=== PATIENT | male | born 1955 | race Caucasian/White ===

== ENCOUNTER 2019-08-10 07:08 | Outpatient (RCR) | payer BC, SELFPAY ==
[2019-07-21 09:00] VITALS: BMI 42.0
--- NOTE | 2019-08-10 12:45 | PCWOUND ---
WOCN NOTE Patient did not show up for appointment, called. Patient states he forgot and that his wound is healed and closed. He does not need to be seen.
== END 2019-10-02 08:23 | disposition home or self-care (01) ==
LOC: ANHWOC 07:08
PROVIDERS: PCP Family Medicine; Visit Provider Family Medicine
DX: I73.9 Peripheral vascular disease, unspecified (principal); I87.2 Venous insufficiency (chronic) (peripheral); E11.9 Type 2 diabetes mellitus without complications
CPT/HCPCS: 99212; G0463

== ENCOUNTER 2019-10-14 14:47 | Emergency (ER) | payer BC, SELFPAY ==
--- NOTE | ~2019-10-14 | XR_ITS ---
EXAMINATION: XR chest 1V portable DATE: 10/14/2019 15:55 INDICATION: Shortness of breath. TECHNIQUE: A single frontal view of the chest was obtained. COMPARISON: Chest 2 views 12/15/2015, chest CT 12/15/2015 FINDINGS: There is no pneumonia, pleural effusion, or pneumothorax. Cardiomegaly is noted. There is a prominent left paracardial fat pad. IMPRESSION: 1. Cardiomegaly. Reviewed, dictated and finalized at location A. IMPRESSION: 1. Cardiomegaly.
--- NOTE | ~2019-10-14 | CT_ITS ---
EXAMINATION: CT abdomen pelvis wo con DATE: 10/14/2019 16:33 INDICATION: Left flank pain. TECHNIQUE: Computed tomography (CT) of the abdomen and pelvis was performed without intravenous contr ast. Automated exposure control and iterative reconstruction technique were employed. The dose-length product was 1555.90 mGy-cm. COMPARISON: None. FINDINGS: The visualized portions of the lung bases demonstrate mild atelectasis. No pleural effusion . The heart size is normal. No pericardial effusion. There is a moderate-sized sliding hiatal hernia. There is diffuse hepatic steatosis. There are changes of cholecystectomy. Calcifications in the sple en are consistent with old granulomatous disease. The pancreas, adrenal glands, and right kidney are normal. There is a 1.8 cm cyst in left kidney. There is mild left hydronephrosis. There are 5 mm and 3 mm stones in proximal left ureter. There are no dilated loops of bowel. The appendix is normal. The re is a widemouthed ventral hernia containing nonobstructed small bowel. There are no pathologically enlarged lymph nodes. There is no free intraperitoneal fluid. There is mild lumbar spondylosis. There are bridging endplate osteophytes at multiple levels in the thoracic spine, consistent with diffuse idiopathic skeletal hyperostosis (DISH). IMPRESSION: 1. 5 mm and 3 mm stones in proximal left ureter with mild left hydronephrosis. 2. Moderate-sized sliding hiatal hernia. 3. Widemouthed ventral hernia containing nonobstructed small bowel. Reviewed, dictated and finalized at location A.
--- NOTE | ~2019-10-14 | XR_ITS ---
EXAMINATION: XR abdomen/kub 1V DATE: 10/14/2019 16:40 INDICATION: Left flank pain. TECHNIQUE: A supine view of the abdomen on 2 radiographs was obtained. COMPARISON: CT abdomen and pelvis 10/14/2019 FINDINGS: There are no dilated loops of bowel. There is no visible urolithiasis. Surgical clips in th e right upper quadrant are likely from cholecystectomy. There are surgical clips in anterior abdomina l wall. IMPRESSION: 1. No visible urolithiasis. Reviewed, dictated and finalized at location A. IMPRESSION: 1. No visible urolithiasis.
[2019-10-14 14:55] VITALS: BP 136/71; PULSE 54; RESP 22; TEMP 36.4; O2SAT 97
--- NOTE | 2019-10-14 15:10 | ECG_ITS ---
Measurements Intervals [place] Rate: 68 P: 165 [place]: 174 QRS: 165 QRSD: 102 T: 165 QT: 397 QTc: 423 Interpretive Statements SINUS RHYTHM ARM LEADS REVERSED VENTRICULAR PREMATURE COMPLEX BASELINE ARTIFACT- I, III, AVR, AVL, AVF, V1 BORDERLINE ECG Electronically Signed On 10-15-2019 8:01:08 CDT by Jaspal Mckenna D.O.
--- NOTE | 2019-10-14 15:11 | ED.GENADULT ---
HPI - General Adult General Chief complaint: Shortness of Breath/Dyspnea Stated complaint: SOB, Back Pain Time Seen by Provider: 10/14/19 14:56 Source: patient Mode of arrival: ambulatory Limitations: no limitations History of Present Illness HPI narrative: THis patient is a 64 year old male with history of DM, PE on eliquis, HTN who presents for evaluation of sudden onset of left flank pain. Patient states just prior to arrival he developed sudden onset of pain to left flank that radiates around to left upper abdomen. He has associated sob and nausea with his pain. He denies previous history of kidney stones or similar pain in the past. He also denies fever or cough He denies urinary symptoms. Related Data Home Medications Medication Instructions Recorded Confirmed atorvastatin 10 mg tablet 10 mg PO DAILY 03/15/19 07/21/19 furosemide 20 mg tablet 20 mg PO QAM 03/15/19 07/21/19 Allergies Allergy/AdvReac Type Severity Reaction Status Date / Time No Known Allergies Allergy Verified 10/14/19 15:00 Review of Systems Review of Systems: All systems reviewed & are unremarkable except as noted in HPI and below Constitutional: Constitutional: Denies chills and Denies fever(s) Cardiovascular: Cardiovascular: Denies chest pain, Denies rapid heart rate and Denies radiating jaw, neck or arm pain Respiratory: Respiratory: Denies cough and Reports dyspnea Gastrointestinal: Gastrointestinal: Reports abdominal pain, Reports nausea and Denies vomiting Genitourinary: Genitourinary: Denies hematuria, Denies oliguria, Denies dysuria and Denies urinary frequency Musculoskeletal: Musculoskeletal: Reports back pain PMFSH Past Medical History Medical History Essential (primary) hypertension Hematuria Hx of adenomatous colonic polyps MTHFR gene mutation Peripheral vascular disease Personal history of pulmonary embolism Pure hypercholesterolemia, unspecified Rhinosinusitis Stasis dermatitis Surgical History Surgical History Hx of cholecystectomy Hx of colonoscopy Status post endovenous radiofrequency ablation (RFA) of saphenous vein Family History Family History (Updated 05/01/19 @ 11:48 by Trish Amaro APRN) Mother Family history of malignant neoplasm multiple myeloma Father Family history of diabetes mellitus in first degree relative Family history of type 2 diabetes mellitus Skin cancer Social History Social History (Updated 05/01/19 @ 11:48 by Trish Amaro, YENI) Smoking status: Never smoker Alcohol intake: never Substance use: never Gender identity (if verbalized by the patient): Male Exam Const: General: alert Orientation/consciousness: patient oriented x3 Other: moderate distress due to pain. Morbidly obese HENMT: Head: normocephalic and atraumatic Face and sinus: face symmetric Eyes: Pupils: Equal, round and reactive pupils present EOM: EOMs intact bilaterally Chest: Chest palpation & inspection: normal inspection of the chest Resp: Effort & Inspection: normal respiratory effort and no use of accessory muscles Auscultation: clear to auscultation bilaterally Cardio: Rate: regular rate Rhythm: regular rhythm Heart sounds: no murmurs GI: GI Palp: Yes Soft to palpation, Yes Tenderness to palpation present (GI) (left upper, LLQ), No Guarding due to palpation present (GI), No Rigid due to palpation and Yes Hernia present (ventral) Auscultation: normal bowel sounds : General: Yes CVA tenderness on the left Skin: General skin exam: normal color Rashes: no rashes Neuro: General: patient oriented x3 and moves all extremities Course Reevaluation(s) Reevaluation #1: PAtient states his pain is minimal. I have discussed findings of kidney stones. He is agreeable to discharge with pain medication, antibiotics and flomax. He will follow up with urology as ou
[2019-10-14 15:31] LABS: Basophils Absolute Auto 0.1 K/mm3 (0.0-0.1); Basophils Percent Auto 0.5 % (0.2-1.2); Eosinophils Absolute Auto 0.1 K/mm3 (0-0.3); Eosinophils Percent Auto 0.5 % (0-4.4); Hemoglobin 16.1 g/dL (14.0-18.0); Immature Granulocyte Absolute 0.07 K/mm3 (0.00-0.031); Immature Granulocyte Percent A 0.5 % (0-0.5); Lymphocytes Absolute Auto 1.35 K/mm3 (0.9-3.2); Lymphocytes Percent Auto 10.4 % (18.3-44.2); Mean Corpuscular HGB Conc 33.5 g/dl (32-36); Mean Corpuscular Hemoglobin 30.1 pg (26-34); Mean Corpuscular Volume 89.9 fl (80-100); Mean Platelet Volume 10.1 fl (7.4-10.4); Monocytes Absolute Auto 0.9 K/mm3 (0.1-0.6); Monocytes Percent Auto 6.9 % (2.6-8.5); Neutrophils Absolute Auto 10.5 K/mm3 (1.3-6.7); Neutrophils Percent Auto 81.2 % (45.5-73.1); Platelet Count Result 271 k/mm3 (150-375); Red Blood Count 5.34 M/mm3 (4.6-6.20); Red Cell Distribution Width 13.9 % (11.5-14.5); White Blood Count 12.9 K/mm3 (4.5-10.0)
[2019-10-14 15:34] LABS: Base Excess ABG -0.2 mEq/l (+/-2.0); Carboxyhemoglobin 0.9 % THb (0-2.0); Fractional Inspired Oxygen 21 %; HCO3 ABG 20.9 mEq/l (22.0-26.0); Methemoglobin ABG 0.4 %THb (0-1.5); Oxygen Content ABG 21.3 %vol (16.0-22.0); Oxygen Saturation ABG 95.8 % (95.0-100.0); Oxyhemoglobin 94.6 % THb (90.0-100.0); PCO2 ABG 26.4 mmHg (35.0-45.0); PO2 ABG 70.1 mmHg (80.0-100.0); PO2 FiO2 Ratio Arterial Blood 3.34 %; Reduced Hemoglobin 4.1 %THb (0-5.0)
[2019-10-14 15:36] LABS: Device ROOM AIR; Modified Allen's Test Pass; Site Drawn LEFT RADIAL; pH ABG 7.517 (7.350-7.450)
[2019-10-14 15:41] LABS: Prothrombin Time 13.2 Seconds (11.1-14.7)
[2019-10-14 15:45] LABS: Alanine Aminotransferase 34 U/L (4-50); Albumin Level 4.6 g/dL (3.5-5.1); Alkaline Phosphatase 100 U/L (38-126); Aspartate Amino Transferase 37 U/L (17-59); Bilirubin,Total 0.5 mg/dL (0.2-1.3); Blood Urea Nitrogen 17 mg/dL (9-20); Calcium 9.9 mg/dL (8.4-10.2); Carbon Dioxide 23 mmol/L (22-30); Chloride 104 mmol/L (98-107); Estimated CRCL calculation 113 ml/min; Estimated Glomerular Filt Rate > 60; Glucose 193 mg/dL (75-110); Lipase 98 U/L (23-300); Potassium 4.3 mmol/L (3.4-5.0); Sodium 137 mmol/L (137-145)
[2019-10-14] MEDS: HYDROMORPHONE HCL 1 MG/ML INJ IV PUSH (15:46)
[2019-10-14] MEDS: TAMSULOSIN HCL 0.4 MG CAPSULE PO (17:17)
[2019-10-14 17:20] VITALS: BP 140/70; PULSE 78; RESP 20; O2SAT 99
[2019-10-14 17:41] LABS: Add Urine Microscopic? YES; Appearance Urine Clear (Clear); Bacteria Urine Trace /hpf; Bilirubin Urine Negative (Negative); Blood Urine 1+ (Negative); Color Urine Yellow (Yellow); Glucose Urine UA 3+ mg/dL (Negative); Ketones Urine Negative (Negative); Leukocyte Esterase Ur 1+ LEU/UL (Negative); Mucus Urine Rare /lpf; Nitrate Urine Negative (Negative); Protein Urine Negative (Negative); Specific Grav Ur 1.026 (1.001-1.035); Squamous Epithelial Cell Urine Rare /hpf (Few); Urobilinogen Urine Negative mg/dL (<2.0); WBC Urine 51-75 /hpf
[2019-10-14 18:23] VITALS: BP 125/56; PULSE 67; RESP 18; O2SAT 99
== END 2019-10-14 18:28 | disposition home or self-care (01) ==
PROVIDERS: Emergency Provider General Practice; PCP Family Medicine
DX: N13.2 Hydronephrosis with renal and ureteral calculous obstruction (principal); Z86.711 Personal history of pulmonary embolism; I10 Essential (primary) hypertension; Z79.01 Long term (current) use of anticoagulants; E11.51 Type 2 diabetes mellitus with diabetic peripheral angiopathy without gangrene; E78.00 Pure hypercholesterolemia, unspecified
CPT/HCPCS: 36415; 36600; 71045; 74018; 74176; 80053; 81001; 82375; 82805; 83050; 83690; 85025; 85610; 85730; 87077; 87086; 87088; 87186; 93005; 96374; 99284; A9270; J1170

== ENCOUNTER → 2020-08-23 16:54 | Outpatient (CLI) | payer BC, SELFPAY ==
--- NOTE | ~2020-08-23 | XR_ITS ---
XR lumbar spine 2-3V 08/23/2020 17:20 Indication: Low back pain Procedure: 3 views of the lumbar spine Comparison: No prior studies for comparison. Findings: Vertebral body heights are maintained. There is normal lumbar lordosis. There is moderate m ultilevel facet hypertrophy. There is disc narrowing at L3-4, L4-5 and L5-S1. No evidence for spondyl olisthesis. There are prominent ventral bridging osteophytes of the upper lumbar spine. There is hype rtrophy of the spinous processes. Impression: 1: Moderate lumbar spondylosis. Reviewed, dictated and finalized at location A. Impression: 1: Moderate lumbar spondylosis.
--- NOTE | ~2020-08-23 | XR_ITS ---
XR thoracic spine 2V 08/23/2020 17:20 Indication: Back pain Procedure: 4 views of the thoracic spine Comparison: No prior studies for comparison. Findings: Mild thoracic spondylosis. Mild levocurvature of the thoracic spine. No acute fracture or t raumatic malalignment. Vertebral body heights are maintained. Pedicles intact. There are cholecystect monster clips. Impression: 1: Mild thoracic spondylosis. Reviewed, dictated and finalized at location A. Impression: 1: Mild thoracic spondylosis.
== END ==
PROVIDERS: PCP Family Medicine; Visit Provider Physician Assistant
DX: M54.9 Dorsalgia, unspecified (principal); M47.814 Spondylosis without myelopathy or radiculopathy, thoracic region; M47.816 Spondylosis without myelopathy or radiculopathy, lumbar region
CPT/HCPCS: 72070; 72100

== ENCOUNTER 2020-10-21 07:31 | Outpatient (RCR) | payer BC, SELFPAY ==
[2020-10-14 08:30] VITALS: BMI 45.5
== END 2020-12-24 12:15 | disposition home or self-care (01) ==
LOC: ANHWOC 07:31
PROVIDERS: PCP Family Medicine; Visit Provider Family Medicine
DX: I83.019 Varicose veins of right lower extremity with ulcer of unspecified site (principal); L97.919 Non-pressure chronic ulcer of unspecified part of right lower leg with unspecified severity
CPT/HCPCS: 99212; 99213; G0463

== ENCOUNTER 2021-08-14 13:44 | Outpatient (CLI) | payer BC, SELFPAY ==
--- NOTE | ~2021-08-14 | CT_ITS ---
EXAMINATION: CT abdomen pelvis wo con DATE: 08/14/2021 14:23 INDICATION: Hypertension. Kidney stones. TECHNIQUE: Computed tomography (CT) of the abdomen and pelvis was performed without intravenous contr ast. Automated exposure control and iterative reconstruction technique were employed. Exam dose: 133 4.61 mGy-cm total exam DLP. COMPARISON: 10/14/2019 CT abdomen pelvis 10/14/2019 KUB FINDINGS: There is a 3 mm pleural-based left lower lobe nodule. The lung bases are clear of infiltrat e or consolidation. Normal heart size. No pericardial or pleural effusion. Moderately large hiatal hernia. Status post cholecystectomy. No hepatic, splenic, pancreatic, adrenal or renal space-occupying mass lesion is evident on this limi gurwinder noncontrast examination. No bile duct or pancreatic duct dilatation. No urinary tract calculus or hydroureteronephrosis. The urinary bladder is unremarkable. There is pro state enlargement. Normal caliber of the abdominal aorta. No intraperitoneal or retroperitoneal or pelvic mass lesion or adenopathy or ascites. No bowel obstruction or intraperitoneal free air. Prominent widemouth multilocular fat containing umbilical hernia. Diffuse idiopathic skeletal hyperostosis of the thoracic spine. There is mild degenerative change of the lumbar spine. IMPRESSION: Moderately large hiatal hernia Status post cholecystectomy Prominent widemouth multilocular fat-containing umbilical hernia Reviewed, dictated and finalized at Location A. Reviewed, dictated and finalized at location A.
== END 2021-08-14 13:45 | disposition home or self-care (01) ==
LOC: ANHIMG 13:48
PROVIDERS: PCP Family Medicine; Visit Provider Internal Medicine Nephrology
DX: N20.0 Calculus of kidney (principal); I10 Essential (primary) hypertension; E78.00 Pure hypercholesterolemia, unspecified; K44.9 Diaphragmatic hernia without obstruction or gangrene; Z90.49 Acquired absence of other specified parts of digestive tract; K42.9 Umbilical hernia without obstruction or gangrene
CPT/HCPCS: 74176

== ENCOUNTER 2023-05-15 08:02 | Outpatient (CLI) | payer OTHER, SELFPAY ==
[2023-05-15 08:36] LABS: Appearance Urine Turbid (Clear); Bacteria Urine 4+ /hpf; Bilirubin Urine Negative (Negative); Blood Urine 2+ (Negative); Color Urine Yellow (Yellow); Glucose Urine UA 3+ mg/dL (Negative); Ketones Urine Trace mg/dL (Negative); Leukocyte Esterase Ur 2+ LEU/UL (NEGATIVE); Need Manual Microscopic Reviewed; Nitrate Urine Negative (Negative); Protein Urine 1+ mg/dL (Negative); RBC Urine 51-100 /hpf (0-2); Specific Grav Ur 1.031 (1.001-1.035); Squamous Epithelial Cell Urine None seen /hpf (Few); Urobilinogen Urine 0.2 mg/dL (<2.0); WBC Urine >100 /hpf (0-3); pH Urine 7.5 (5.0-9.0)
[2023-05-15 08:43] LABS: Add Urine Microscopic? YES
== END 2023-05-15 08:03 | disposition home or self-care (01) ==
PROVIDERS: PCP Family Medicine; Visit Provider Internal Medicine Nephrology
DX: R82.81 Pyuria (principal)
CPT/HCPCS: 81001; 87086; 87147; 87181; 87186

== ENCOUNTER 2023-11-03 13:13 | Outpatient (CLI) | payer OTHER, SELFPAY | END 2023-11-03 13:14 | disposition home or self-care (01) | LOC: ANHAUDASC 13:14 | PROVIDERS: PCP Family Medicine; Visit Provider Physician Assistant Medical | DX: H90.72 Mixed conductive and sensorineural hearing loss, unilateral, left ear, with unrestricted hearing on the contralateral side (principal); H93.13 Tinnitus, bilateral | CPT/HCPCS: 92557; 92567 ==

== ENCOUNTER 2023-11-25 10:06 | Outpatient (CLI) | payer OTHER, SELFPAY ==
--- NOTE | 2023-11-25 11:02 | EST_ITS ---
Patient Info Name: Bernabe Marx Jr Age: 68 years : 1955 Gender: Male Ht: 71 in Wt: 325 lbs BSA: 2.79 m2 HR: 58 bpm BP: 140 / 66 mmHg Heart Rhythm: Sinus Rhythm Exam Date: 11/25/2023 11:23 AM Exam Location: Echo Lab Patient Status: Outpatient Admit Date: 11/25/2023 Staff Ordering Physician: Yesenia Kaufman PA-C Attending Provider: Yesenia Kaufman PA-C Exercise Technologist: Bambi Savage CT Exercise Physician: Jaspal Mckenna DO Exam Type: CA stress test treadmill Study Info Indications R06.09 - Other forms of dyspnea A treadmill exercise stress test was performed. Summary 1. 1. Negative Rafa exercise stress test for ischemic ST changes by ECG criteria. 2. 2. Reduced functional capacity, achieving 7 METs of workload. 3. 3. Baseline hypertension with hypertensive response to exercise. 4. 4. Appropriate HR response to exercise. 5. 5. Appropriate HR recovery at 1 minute post exercise. 6. 6. No imaging with stress testing. 7. 7. Patient informed of the above results. Protocol: Rafa Stress ECG Details Stage: REST Duration (min): 1 min : 15 sec Speed (mph): 0.0 Grade (%): 0 HR (bpm): 58 SBP (mmHg): 140 DBP (mmHg): 66 METS: --- Stage: REST Duration (min): 13 min : 32 sec Speed (mph): 0.0 Grade (%): 0 HR (bpm): 80 SBP (mmHg): 140 DBP (mmHg): 66 METS: --- Stage: STAGE 1 Duration (min): 1 min : 0 sec Speed (mph): 1.7 Grade (%): 10 HR (bpm): 95 SBP (mmHg): 140 DBP (mmHg): 66 METS: --- Stage: STAGE 1 Duration (min): 2 min : 0 sec Speed (mph): 1.7 Grade (%): 10 HR (bpm): 109 SBP (mmHg): 140 DBP (mmHg): 66 METS: --- Stage: STAGE 1 Duration (min): 3 min : 0 sec Speed (mph): 1.7 Grade (%): 10 HR (bpm): 121 SBP (mmHg): 182 DBP (mmHg): 67 METS: --- Stage: STAGE 2 Duration (min): 1 min : 0 sec Speed (mph): 2.5 Grade (%): 12 HR (bpm): 133 SBP (mmHg): 182 DBP (mmHg): 67 METS: --- Stage: STAGE 2 Duration (min): 1 min : 30 sec Speed (mph): 2.5 Grade (%): 12 HR (bpm): 137 SBP (mmHg): 182 DBP (mmHg): 67 METS: --- Stage: RECOVERY Duration (min): 0 min : 29 sec Speed (mph): 0.0 Grade (%): 0 HR (bpm): 136 SBP (mmHg): 213 DBP (mmHg): 63 METS: --- Stage: RECOVERY Duration (min): 1 min : 29 sec Speed (mph): 0.0 Grade (%): 0 HR (bpm): 99 SBP (mmHg): 213 DBP (mmHg): 63 METS: --- Stage: RECOVERY Duration (min): 1 min : 41 sec Speed (mph): 0.0 Grade (%): 0 HR (bpm): 94 SBP (mmHg): 213 DBP (mmHg): 63 METS: --- Rest HR: 80 bpm Peak HR: 138 bpm Rest Sys BP: 140 mmHg Peak Sys BP: 213 mmHg Max Pred HR: 154 bpm % Max Pred HR: 90 % Target HR: 131 bpm Max RPP: 29,394 bpm*mmHg Cooper Score: -1 BP Response: Patient exhibited a hypertensive response with stress Termination Reason: Reached target heart rate or workload Cardiac Symptoms: Shortness of breath Max ST Seg Deviation: 1.20 mm Total Time: 4 min : 30 sec Rest Lanier BP: 66 mmHg Peak [place]ier BP: 63 mmHg Babatunde
== END 2023-11-25 10:07 | disposition home or self-care (01) ==
PROVIDERS: PCP Family Medicine; Visit Provider Physician Assistant Medical
DX: R06.09 Other forms of dyspnea (principal)
CPT/HCPCS: 93017

== ENCOUNTER 2023-12-13 16:26 | Outpatient (CLI) | payer OTHER, SELFPAY ==
--- NOTE | ~2023-12-13 | XR_ITS ---
XR shoulder LT min 2V Ordering provider: Yesenia Kaufman History: . M25.512 - Pain in left shoulder . Comparison: None. FINDINGS: BONES: No acute fracture or dislocation. JOINT SPACES: The acromioclavicular joint is normal. Osteophyte is seen inferiorly from the acromion. The glenohumeral joint is normal. SOFT TISSUES: Normal. IMPRESSION: No acute osseous abnormality left shoulder. Reviewed, dictated and finalized at location A.
== END 2023-12-13 16:27 ==
PROVIDERS: PCP Physician Assistant Medical; Visit Provider Physician Assistant Medical
DX: M25.512 Pain in left shoulder (principal)
CPT/HCPCS: 73030

== ENCOUNTER 2024-01-19 08:00 | Outpatient (RCR) | payer SELFPAY | END 2024-03-23 23:59 | disposition home or self-care (01) | LOC: ANHAUDASC 08:00 | PROVIDERS: PCP Family Medicine; Visit Provider Family Medicine | DX: Z46.1 Encounter for fitting and adjustment of hearing aid (principal) | CPT/HCPCS: 99199; V5261 ==

== ENCOUNTER 2024-07-31 17:48 | Emergency (ER) | payer MEDICARE, OTHER, SELFPAY ==
[2024-07-31 18:00] VITALS: BP 159/67; PULSE 76; RESP 16; TEMP 36.4; O2SAT 97
--- NOTE | 2024-07-31 18:12 | ED.URI ---
HPI - URI/Sore Throat General Chief Complaint: Upper Respiratory Infection Stated Complaint: right eye red,discharge, sinus issue Time Seen by Provider: 07/31/24 18:12 Source: patient Mode of arrival: ambulatory Limitations: no limitations History of Present Illness HPI Narrative: 69-year-old male presents with complaint of nasal congestion, sinus pressure, nasal nasal drainage with mild cough for 2-3 days. Afebrile. Patient reports redness, drainage to right eye. Patient concerned for pinkeye. Taking wehq-htw-fhiudka sinus medications for nasal congestion. No chest pain or shortness of breath. All systems reviewed and negative except as noted above. Related Data Allergies Allergy/AdvReac Type Severity Reaction Status Date / Time No Known Allergies Allergy Verified 07/31/24 17:53 Review of Systems Review of Systems: CONSTITUTIONAL: Denies fever, chills, or sweats. EYES: Denies visual changes. Reports right eye redness, discharge. ENT: Reports rhinorrhea, congestion, sinus pressure, postnasal drainage. Denies sore throat, or otalgia. CARDIOVASCULAR: Denies chest pain, palpitations, or edema. RESPIRATORY: Denies cough or dyspnea. GASTROINTESTINAL: Denies abdominal pain, nausea, vomiting, or diarrhea. GENITOURINARY: Denies dysuria or hematuria. SKIN: Denies rash or itching. MUSCULOSKELETAL: Denies back pain, joint pain, or myalgia. NEUROLOGIC: Denies headache, numbness, or weakness. PSYCHIATRIC: Denies anxiety or depression. All other systems reviewed are negative, except as documented in HPI. [facility] Past Medical History Medical History Rhinosinusitis Peripheral vascular disease Hx of adenomatous colonic polyps Hematuria MTHFR gene mutation Stasis dermatitis Personal history of pulmonary embolism Pure hypercholesterolemia, unspecified Essential (primary) hypertension Surgical History Surgical History Status post endovenous radiofrequency ablation (RFA) of saphenous vein Hx of cholecystectomy Hx of colonoscopy Family History Family History Mother Family history of malignant neoplasm multiple myeloma Father Family history of diabetes mellitus in first degree relative Family history of type 2 diabetes mellitus Skin cancer Social History Social History Social History: Smoking status: Never smoker Second hand tobacco smoke exposure: No Alcohol intake: never Substance use: never Substance use type: does not use Lack of Transportation: No Lack of Food: Never True Current Housing: I Have Housing Concerned About Future Housing: No Difficulty Paying Gas/Electric Bills: No Difficulty Paying for Meds: No Currently Unemployed: No Education: Bachelor's Degree Living arrangements: with family Occupation/Education: occupation Gender identity (if verbalized by the patient): Male Sexual Orientation (if Verbalized by the Patient): Straight or Heterosexual Comments At time of signature, agree with nursing past medical, surgical, social and family history. There is no relevant family history pertinent to the presenting complaint. Exam Narrative: GENERAL: This is a well-nourished, well-developed patient, in no apparent distress. HEAD: normocephalic, atraumatic. EYES: PERRL. Sclera and conjunctiva erythematous and injected right eye with purulent drainage. Vision is grossly intact. EARS: External ears normal, auditory canals clear and without drainage, TMs normal without perforation. Hearing grossly intact. NOSE: External nose normal with clear nasal drainage, mild erythema to nares THROAT: Mucous membranes moist, posterior pharynx clear. NECK: Neck supple, non-tender without lymphadenopathy, masses or thyromegaly. CARDIOVASCULAR: Regular rate and rhythm without murmurs, gallops, or rubs. RESPIRATORY: Clear to auscultation. Breath sounds equal bilaterally. No wheezes, rales, or rhonchi. SKIN: warm, Dry, intact with no suspicious lesions or rash, good texture and turgor. NEURO: awake, alert, and oriented to person, place and time. There were no obvious focal neurologic abnormalities. EXTREMITIES: No joint tenderness, effusion, or edema noted. Course Course Level of Care: Express Care Visit Vital Signs Vital signs: Vital Signs Temperature 36.4 C 07/31/24 18:00 Pulse Rate 76 07/31/24 18:00 Respiratory Rate 16 07/31/24 18:00 Blood Pressure 159/67 H 07/31/24 18:00 Pulse Oximetry 97 07/31/24 18:00 Oxygen Delivery Room Air 07/31/24 18:00 Temperature 36.4 C 07/31/24 18:00 Pulse Rate 76 07/31/24 18:00 Respiratory Rate 16 07/31/24 18:00 Blood Pressure 159/67 H 07/31/24 18:00 Pulse Oximetry 97 07/31/24 18:00 Oxygen Delivery Room Air 07/31/24 18:00 Reviewed MDM - URI/Sore Throat MDM Narrative Medical decision making narrative: Please be advised this is a medical document. It is intended for [id number] communication. It is written in medical language and may contain unfamiliar abbreviations or verbiage. Medical documents are intended to carry relevant information, facts as evident, and the clinical opinion of the practitioner at the time of the encounter. This report may have been done utilizing a voice recognition system. Attempts have been made to correct errors. However, there may be uncorrected grammatical, spelling, and recognition errors present. The file time of this note does not necessarily represent the time of service. Differential Diagnosis Differential diagnosis: Likely upper respiratory infection, sinusitis and viral infection Discharge Plan Discharge Clinical Impression: Acute viral sinusitis, Acute bacterial conjunctivitis of right eye Patient Disposition: Home, Self-Care Condition: Stable Instructions: Antibiotic Form, Conjunctivitis (ED) Additional Instructions: your sinus symptoms are viral and may last 10-14 days. Start Flonase nasal spray today. Continue [id number] Sudafed as directed on packaging. Take an oyor-xym-yvnhvst antihistamine daily such as Claritin or Zyrtec. Start antibiotic eyedrop today. Wash hands before and after placing eyedrops. Follow-up with your doctor if symptoms are not improving. Patient Language: Senegalese Prescriptions: New fluticasone propionate [Flonase Allergy Relief] 50 mcg/actuation spray,suspension 1 spray intranasal BID Qty: 16 0RF Rx Instructions: administer into each nostril ofloxacin 0.3 % drops 1 drp RIGHT EYE QID Qty: 10 0RF No Action tramadol 50 mg tablet 50 mg PO Q6H PRN (Reason: pain) Qty: 20 0RF Mounjaro 2.5 mg/0.5 mL pen injector 2.5 mg subcut WEEKLY Qty: 2 0RF Rx Instructions: for 4 weeks (DME) Contour Next Test Strips Strip See Rx Instructions .ROUTE .MEDSUPPLY Qty: 100 5RF Rx Instructions: As directed to check blood sugar once daily furosemide [Lasix] 20 mg tablet 20 mg PO QAM Qty: 30 2RF glipizide 5 mg tablet extended release 24hr 5 mg PO DAILY Qty: 90 2RF atorvastatin 10 mg tablet See Rx Instructions .ROUTE .COMPLEX Qty: 90 2RF Dose Instruction: TAKE ONE TABLET BY MOUTH DAILY Rx Instructions: TAKE ONE TABLET BY MOUTH DAILY metformin 500 mg tablet extended release 24 hr 500 mg PO QID Qty: 360 2RF lisinopril 20 mg tablet 20 mg PO DAILY Qty: 90 1RF Eliquis 5 mg tablet 5 mg PO BID Qty: 180 1RF Jardiance 25 mg tablet See Rx Instructions .ROUTE .COMPLEX Qty: 90 2RF Dose Instruction: TAKE ONE TABLET BY MOUTH DAILY EVERY MORNING Rx Instructions: TAKE ONE TABLET BY MOUTH DAILY EVERY MORNING Januvia 100 mg tablet 100 mg PO DAILY Qty: 90 2RF Follow-up/Referrals: Augustine Willett MD [Primary Care Provider] - Time of Disposition: 18:18
== END 2024-07-31 18:22 | disposition home or self-care (01) ==
PROVIDERS: Emergency Provider Nurse Practitioner Family; PCP Family Medicine
DX: J01.90 Acute sinusitis, unspecified (principal); H10.31 Unspecified acute conjunctivitis, right eye; I73.9 Peripheral vascular disease, unspecified; E72.12 Methylenetetrahydrofolate reductase deficiency; I10 Essential (primary) hypertension; E78.00 Pure hypercholesterolemia, unspecified; Z86.711 Personal history of pulmonary embolism
CPT/HCPCS: 99213; G0463

== ENCOUNTER 2024-09-01 01:04 | Day surgery (SDC) | payer MEDICARE, OTHER, SELFPAY ==
[2024-08-24 09:37] VITALS: BMI 43.4
--- NOTE | 2024-08-24 09:46 | SUR.PREOP ---
Spoke with patient in regards to his Eliquis. He verbalized understanding that his last dose is to be taken on 08/24/24 and the endoscopist will inform him when to resume after the procedure.
--- OUTSIDE RECORDS SUMMARY | 2024-09-01 01:08 | XMS_ITS | Clinical Summary ---
Author Organization [facility] Address [address] [place] [id number] Phone Care Team Providers Care Sports Physiotherapist Name Role Phone Augustine Willett MD Primary Care Provider [phone] Allergies No known active allergies Medications ELIQUIS 5 MG tablet 11/16/2019 Active atorvastatin (LIPITOR) 10 MG tablet 12/14/2019 Active JARDIANCE 25 MG tablet 12/21/2019 Active CONTOUR NEXT TEST test strip 10/16/2019 Act alexandra lisinopril (PRINIVIL,ZESTRI L) 20 MG tablet 11/30/2019 Act alexandra JANUVIA 100 MG tablet 10/19/2019 Active metFORMIN (GLUCOPHAGE) 1000 MG tablet 01/22/2021 Acti ve furosemide (LASIX) 20 MG tablet Take 20 mg by mouth 1 (one) time each day Active penicillin v potassium (VEETID) 500 MG tablet 01/21/2022 Active hydroCHLOROthiaz rene (HYDRODIURIL) 25 MG tablet Take 1 tablet (25 mg total) by mouth 1 (one) time each day 30 tablet 11 02/27/2022 Active Active Problems Problem Noted Date Diagnosed Date Calculus of kidney 01/11/2020 Benign hypertension 07/10/2016 Pure hypercholesterolemia 07/10/2016 Stasis dermatitis 07/10/2016 Type II diabetes mellitus uncontrolled 7 Immunizations Immunization Administration Dates Next Due Influenza TIV (IM) 02/02/2022,03/03/2020 Moderna Sars-cov-2 Vaccination 06/12/2020 Pneumococcal Conjugate 01/01/2015 Family History Medical History Relation Comments Kidney stone Brother Kidney disease Neg Hx Relation Status Comments Brother Social History Tobacco Use Types Packs/Day Years Used Date Smoking Tobacco: Never Smokeless Tobacco: Never Alcohol Use Standard Drinks/Week Comments Not Currently 0 (1 standard drink = 0.6 oz pur e alcohol) Sex and Gender Information Value Date Recorded Sex Assigned at Not on file Legal Sex Male 8:40 AM MDT Gender Identity Not on file Sexual Orientation Not on file Last Filed Vital Signs Vital Sign Reading Time Taken Comments Blood Pressure 122/70 02/16/2022 8:49 AM CDT Pulse 72 02/16/2022 8:49 AM CDT Temperature 36.2 C (97.2 F) 02/16/2022 8:49 AM CDT Respiratory Rate - - Oxygen Saturation - - Inhaled Oxygen Concentration - - Weight 152 kg (336 lb) 02/16/2022 8:49 AM CDT Height 182.9 cm (6') 02/16/2022 8:49 AM CDT Body Mass Index 45.57 02/16/2022 8:49 AM CDT Plan of Treatment Health Maintenance Due Date Last Done Comments Pneumococcal PPSV23/PCV13 65 + Years / Low and Medium Risk (1 of 4 - PCV) 2007 COVID-19 Vaccine ( season) 01/02/202401/2021 Influenza Vaccine (Season Ended) 2025 02/03/20 22, 03/03/[address] [facility] Care Teams Sports Physiotherapist Relationship Specialty Start Date End Date Augustine Willett MD [address] [facility] [address] [facility] [address] [place] [address] PCP - General Internal Medicine 01/15/20
--- OUTSIDE RECORDS SUMMARY | 2024-09-01 01:08 | XMS_ITS | Continuity of Care Document ---
Author Organization [facility] Address [address] [facility] [address] [place] [address] Phone Care Team Providers Care Care Center Manager Name Role Phone Adkins OD, Tom Unavailable Unavailable Advance Directives Directive Yes / No Effective Date File Name No Information Encounters Encounter Description Practice Location Reason(s) For Visit Diagnoses Date Provider Providers Copied on Encounter [facility], [address], [place], [place], [id number], [place] tel:[phone] [facility] No Information Dec-0 9-200 0 Adkins OD Tom. [address], [place], [address], [place]. tel:[phone] Family History Family Member Type Diagnosis Age At Onset No Information Payers Payer name Insurance type Covered alliance party ID Authoriza tion(s) No Information Social [...]
--- OUTSIDE RECORDS SUMMARY | 2024-09-01 01:08 | XMS_ITS | Clinical Summary ---
Author Organization [facility] Address [address] [facility] [place] [address] Phone Care Team Providers Care Merchandising Execution Associate Name Role Phone Augustine Willett MD Primary Care Provider [phone] Allergies No known active allergies Medications lisinopril (PRINIVIL) 10 mg tablet Take 10 mg by mouth daily. Active apixaban (ELIQUIS) 5 mg tablet Take 5 mg by mouth 2 times daily. Active atorvastatin (LIPITOR) 10 mg tablet Take 10 mg by mouth late in the day. Active furosemide (LASIX) 20 mg tablet Take 20 mg by mouth daily. Active sitaGLIPtin-metF ORMIN (JANUMET XR) 50-1,000 mg Extended Release 24 hour tablet Take 1 Tablet by mouth 2 times daily. 60 Tablet 07/12/2016 Active Active Problems Problem Noted Date Diagnosed Date Uncontrolled type 2 diabetes mellitus with hyperglycemia, without long-term current use of insulin 07/10/2016 HTN (hypertension), benign 07/10/2016 Pure hypercholesterolemia 07/10/2016 Chronic venous stasis dermatitis 07/10/2016 Family History Medical History Relation Name Comments Diabetes Brother Hypertension Brother Diabetes Father Hypertension Father Relation Name Status Comments Brother Father Social History Tobacco Use Types Packs/Day Years Used Date Smoking Tobacco: Never Alcohol Use Standard Drinks/Week Comments No 0 (1 standard drink = 0.6 oz pur e alcohol) Sex and Gender Information Value Date Recorded Sex Assigned at Not on file Legal Sex Male 3:48 PM CDT Gender Identity Not on file Sexual Orientation Not on file Last Filed Vital Signs Vital Sign Reading Time Taken Comments Blood Pressure 142/76 07/10/2016 2:07 PM PRESS SET UP PERSON Pulse 84 07/10/2016 2:07 PM PRESS SET UP PERSON Temperature - - Respiratory Rate - - Oxygen Saturation - - Inhaled Oxygen Concentration - - Weight 148.3 kg (327 lb) 07/10/2016 2:07 PM PRESS SET UP PERSON Height 182.9 cm (6') 07/10/2016 2:07 PM PRESS SET UP PERSON Body Mass Index 44.35 07/10/2016 2:07 PM PRESS SET UP PERSON Plan of Treatment Health Maintenance Due Date Last Done Comments DIABETES ANNUAL FOOT EXAM 1975 DIABETES ANNUAL RETINAL EXAM 1975 DIABETES HBA1C Q 6 MONTHS 1975 DIABETES MICROALBUMIN ANNUAL SCREEN 1975 LDL CHOLESTEROL ANNUAL 1975 DTAP/TDAP/TD VACCINES (1 - Tdap) 1976 PNEUMOCOCCAL VACCINE 50+ YEARS (1 of 2 - PCV) 05/03/18 77 COLORECTAL SCREENING 2002 Colorectal Cancer Screening 2002 FIT-DNA Q 3 years 2002 FIT/FOBT Q 1 year 2002 Flex Sig/CT Colonography Q 5 years 2002 ZOSTER VACCINE (1 of 2) 2007 RSV VACCINE (60+ or ) (1 - Risk 60-74 years 1-dose series) 2017 INFLUENZA VACCINE (#1) 2023 Insurance [employer] BLUE ACCESS/TRUE BLUE PPO Care Teams Merchandising Execution Associate Relationship Specialty Start Date End Date Augustine Willett MD [address] [facility] [address] [place] [address] PCP - General Family Practice 07/10/16
--- OUTSIDE RECORDS SUMMARY | 2024-09-01 01:08 | XMS_ITS | Referral Summary ---
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
--- OUTSIDE RECORDS SUMMARY | 2024-09-01 01:08 | XMS_ITS | Clinical Summary ---
Author Organization [facility] Address [address] [address] Phone Care Team Providers Care Computer Network Specialist Name Role Phone Augustine Willett MD Primary Care Provider Encounters Date Type Department Care Team Description 06/09/2024 Telephone [facility] - [place] [address] [place] [address] Neena Sahni APRN, PADDY 06/09/2024 Telephone [facility] - [place] [address] [place] [address] Neena Sahni APRN, HELPER MAINTENANCE CLEANING from Last 3 Months Social History Tobacco Use Types Packs/Day Years Used Date Smoking Tobacco: Never Assessed Sex and Gender Information Value Date Recorded Sex Assigned at Not on file Legal Sex Male 10:08 PM CDT Gender Identity Not on file Sexual Orientation Not on file Plan of Treatment Health Maintenance Due Date Last Done Comments Hepatitis C Virus (HCV) Screening 1955 TdaP Immunization 1957 Cologuard 2007 Immunochemical Fecal Occult Blood 2007 Pneumococcal Immunization (5 0+ years) (1 of 1 - PCV) 2007 01/01/2015 Zoster Immunization (1 of 2) 2007 PSA Discussion 2012 Influenza Immunization (#1) 2024 10/0 07/2021, 03/03/2020 SARS-COV-2 Immunization ( season) 2024 06/12/2020 Colonoscopy 05/01/2024 05/01/2019 Colorectal Cancer Screening 05/01/2024 Respiratory Syncytial Virus (RSV) Immunization (Adult) (1 - 1-dose 75+ series) 2032 05/01/2019 Pneumococcal Immunization Combined Discontinued 01/01/2015 Hepatitis B Immunization Aged Out No longer eligible based on patient's age to complete this topic Meningococcal Immunization (ACWY) Aged Out No longer eligible based on patient's age to complete this topic Rotavirus Immunization Aged Out No lo nger eligible based on patient's age to complete this topic Procedures Procedure Name Priority Date/Time Associated Diagnosis Comments COLONOSCOPY Routine 05/01/2019 from Last 3 Months or Most Recently Relevant to Health Maintenance Results * COLONOSCOPY (05/01/2019) Tom Pete DO PROCEDURE/MINOR SURGICAL ORDERA BLES Edited Result - Final from Last 3 Months or Most Recently Relevant to Health Maintenance Insurance MEDICARE Care Teams Computer Network Specialist Relationship Specialty Start Date End Date Augustine Willett MD [address] [place] [address] PCP - General Family Medicine 05/10/19
--- OUTSIDE RECORDS SUMMARY | 2024-09-01 01:08 | XMS_ITS | Clinical Summary ---
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
[2024-09-01 11:22] VITALS: BP 141/74; PULSE 64; RESP 20; TEMP 36.7; O2SAT 97
[2024-09-01] MEDS: LACTATED RINGERS 1,000 ML 150 ML IV CONT (11:27)
[2024-09-01 11:32] LABS: Glucose Point of Care 138 mg/dl (65-105)
--- NOTE | 2024-09-01 11:36 | P.PNAN_ITS ---
Anes - Initial Pre Proc Eval Procedure: Operation Date: 09/01/24 12:30 Proposed Procedures p Colonoscopy - Juan Manuel Garcia MD Date/Time: 09/01/24 11:36 Surgeon: Juan Manuel Garcia MD Pre Op Diagnosis: Personal history of colon polyps, unspecified Patient Data Age: 69 Gender: M Height: 1.83 m Weight: 146.8 kg Last Vital Signs Temp 98.0 F 09/01/24 11:22 Pulse 64 09/01/24 11:22 Resp 20 09/01/24 11:22 BP 141/74 H 09/01/24 11:22 Pulse Ox 97 09/01/24 11:22 O2 Del Method Room Air 09/01/24 11:22 Allergies Allergy/AdvReac Type Severity Reaction Status Date / Time No Known Allergies Allergy Verified 08/24/24 09:33 Home Medications ?Medication ?Instructions ?Recorded ?Confirmed ?Type blood sugar diagnostic (Contour #100 ea 01/23/21 08/24/24 Rx Next Test Strips) glipizide 5 mg tablet, extended 5 mg PO DAILY #90 tabs 02/24/24 09/01/24 Rx release 24 hr atorvastatin 10 mg tablet See Rx Instructions .Route 03/15/24 09/01/24 Rx .COMPLEX #90 tabs metformin 500 mg tablet,extended 500 mg PO QID #360 tabs 03/15/24 09/01/24 Rx release 24 hr apixaban 5 mg tablet (Eliquis) 5 mg PO BID #180 tabs 03/29/24 09/01/24 Rx tirzepatide 2.5 mg/0.5 mL 2.5 mg (0.5 mL) subcut WEEKLY #2 mL 06/08/24 08/24/24 Rx subcutaneous pen injector (Mounjaro) empagliflozin 25 mg tablet See Rx Instructions .Route 07/26/24 09/01/24 Rx (Jardiance) .COMPLEX #90 ea fluticasone propionate 50 1 spray intranasal BID #16 grams 07/31/24 09/01/24 Rx mcg/actuation nasal spray,suspension (Flonase Allergy Relief) sitagliptin phosphate 100 mg 100 mg PO DAILY #90 tabs 07/31/24 09/01/24 Rx tablet (Januvia) amoxicillin 875 mg-potassium 1 tablet PO Q12H #8 tabs 08/17/24 09/01/24 Rx clavulanate 125 mg tablet furosemide 20 mg tablet (Lasix) 20 mg PO QAM #90 tabs 08/22/24 09/01/24 Rx lisinopril 20 mg tablet See Rx Instructions .Route 08/28/24 09/01/24 Rx .COMPLEX #90 tabs Laboratory Tests 09/01/24 11:29 POC Capillary Glucose 138 H mg/dl (65-105) Patient hx anesthesia problems: none Family hx anesthesia problems: none Results Review: All pre-operative results and documents have been reviewed as part of the pre- operative evaluation. [facility] Past Medical History Medical History Rhinosinusitis Peripheral vascular disease Hx of adenomatous colonic polyps Hematuria MTHFR gene mutation Stasis dermatitis Personal history of pulmonary embolism Pure hypercholesterolemia, unspecified Essential (primary) hypertension Surgical History Surgical History Status post endovenous radiofrequency ablation (RFA) of saphenous vein Hx of cholecystectomy Hx of colonoscopy Family History Family History Mother Family history of malignant neoplasm multiple myeloma Father Family history of diabetes mellitus in first degree relative Family history of type 2 diabetes mellitus Skin cancer Social History Social History Social History: Smoking status: Never smoker Second hand tobacco smoke exposure: No Alcohol intake: never Substance use: never Substance use type: does not use Lack of Transportation: No Lack of Food: Never True Current Housing: I Have Housing Concerned About Future Housing: No Difficulty Paying Gas/Electric Bills: No Difficulty Paying for Meds: No Currently Unemployed: No Education: Bachelor's Degree Living arrangements: with family Occupation/Education: occupation Gender identity (if verbalized by the patient): Male Sexual Orientation (if Verbalized by the Patient): Straight or Heterosexual Anes - Eval Final PreProcedure Day of Procedure 09/01/24 11:36 Patient weight: morbidly obese Lungs: normal air movement Airway: Mallampati scale class II Neurological: alert and oriented Last oral intake: >/= 8 hours ASA classification: III Emergent: no Anesthetic plan: proceed Anesthesia type and monitoring: general GIVS and standard monitoring Results Review: All pre-operative results and documents have been reviewed as part of the pre- operative evaluation. HTN, hyperlipidemia, DM w fair control. Informed Consent: The patient's anesthetic plan and its attendant risks and benefits were discussed with the patient/family/POA. Questions were solicited and answers provided to the satisfaction of the patient/family/POA.
--- NOTE | 2024-09-01 12:53 | PM.IMHP ---
H&P: HPI History of Present Illness Date/Time: 09/01/24 12:53 Chief Complaint: History of colon polyps Narrative: The patient has a history of colonic polyps, the last colonoscopy was 3 years ago. Review of Systems Review of Systems: All systems reviewed & are unremarkable except as noted in HPI and below PMFSH Past Medical History Medical History Rhinosinusitis Peripheral vascular disease Hx of adenomatous colonic polyps Hematuria MTHFR gene mutation Stasis dermatitis Personal history of pulmonary embolism Pure hypercholesterolemia, unspecified Essential (primary) hypertension Surgical History Surgical History Status post endovenous radiofrequency ablation (RFA) of saphenous vein Hx of cholecystectomy Hx of colonoscopy Family History Family History Mother Family history of malignant neoplasm multiple myeloma Father Family history of diabetes mellitus in first degree relative Family history of type 2 diabetes mellitus Skin cancer Social History Social History Social History: Smoking status: Never smoker Second hand tobacco smoke exposure: No Alcohol intake: never Substance use: never Substance use type: does not use Lack of Transportation: No Lack of Food: Never True Current Housing: I Have Housing Concerned About Future Housing: No Difficulty Paying Gas/Electric Bills: No Difficulty Paying for Meds: No Currently Unemployed: No Education: Bachelor's Degree Living arrangements: with family Occupation/Education: occupation Gender identity (if verbalized by the patient): Male Sexual Orientation (if Verbalized by the Patient): Straight or Heterosexual Meds Home Medications and Allergies Home Medications ?Medication ?Instructions ?Recorded ?Confirmed ?Type blood sugar diagnostic (Contour #100 ea 01/23/21 08/24/24 Rx Next Test Strips) glipizide 5 mg tablet, extended 5 mg PO DAILY #90 tabs 02/24/24 09/01/24 Rx release 24 hr atorvastatin 10 mg tablet See Rx Instructions .Route 03/15/24 09/01/24 Rx .COMPLEX #90 tabs metformin 500 mg tablet,extended 500 mg PO QID #360 tabs 03/15/24 09/01/24 Rx release 24 hr apixaban 5 mg tablet (Eliquis) 5 mg PO BID #180 tabs 03/29/24 09/01/24 Rx tirzepatide 2.5 mg/0.5 mL 2.5 mg (0.5 mL) subcut WEEKLY #2 mL 06/08/24 08/24/24 Rx subcutaneous pen injector (Mounjaro) empagliflozin 25 mg tablet See Rx Instructions .Route 07/26/24 09/01/24 Rx (Jardiance) .COMPLEX #90 ea fluticasone propionate 50 1 spray intranasal BID #16 grams 07/31/24 09/01/24 Rx mcg/actuation nasal spray,suspension (Flonase Allergy Relief) sitagliptin phosphate 100 mg 100 mg PO DAILY #90 tabs 07/31/24 09/01/24 Rx tablet (Januvia) amoxicillin 875 mg-potassium 1 tablet PO Q12H #8 tabs 08/17/24 09/01/24 Rx clavulanate 125 mg tablet furosemide 20 mg tablet (Lasix) 20 mg PO QAM #90 tabs 08/22/24 09/01/24 Rx lisinopril 20 mg tablet See Rx Instructions .Route 08/28/24 09/01/24 Rx .COMPLEX #90 tabs Allergies Allergy/AdvReac Type Severity Reaction Status Date / Time No Known Allergies Allergy Verified 08/24/24 09:33 Vital Signs Vital Signs - 24 hr 09/01/24 11:22 Temperature 98.0 F Pulse Rate 64 Respiratory Rate 20 Blood Pressure 141/74 H Pulse Oximetry 97 Oxygen Delivery Room Air Exam Const: General: cooperative and healthy appearing Resp: Effort & Inspection: normal respiratory effort and able to speak in complete sentences Auscultation: clear to auscultation bilaterally Cardio: Rate: regular rate Rhythm: regular rhythm GI: Inspection: normal to inspection GI Palp: No No hepatosplenomegaly present Auscultation: normal bowel sounds Rectal Exam: deferred Skin: General skin exam: normal color Psych: Appearance: grossly normal Mental Status: mental status grossly normal Assessment and Plan Assessment and plan (1) Hx of adenomatous colonic polyps: Code(s): Z86.010 - Personal history of colon polyps Status: Acute Assessment and Plan: The patient is deemed a good candidate for the procedure. Consent signed. Will proceed.
[2024-09-01 13:30] VITALS: BP 137/72; RESP 20; O2SAT 97
[2024-09-01 13:40] VITALS: BP 132/74; RESP 64; O2SAT 99
[2024-09-01 13:50] VITALS: BP 118/63; RESP 59; O2SAT 99
== END 2024-09-01 14:04 | disposition home or self-care (01) ==
PROVIDERS: PCP Family Medicine; Referring Provider Family Medicine; Visit Provider Internal Medicine Gastroenterology
PROC: 0DJD8ZZ Inspection of Lower Intestinal Tract, Via Natural or Artificial Opening Endoscopic (ICD-10-PCS; CPT 45378; principal; 2024-09-01 12:30)
DX: Z12.11 Encounter for screening for malignant neoplasm of colon (principal); D12.3 Benign neoplasm of transverse colon; K64.8 Other hemorrhoids; I10 Essential (primary) hypertension; E78.00 Pure hypercholesterolemia, unspecified; I73.9 Peripheral vascular disease, unspecified; I87.2 Venous insufficiency (chronic) (peripheral); E66.01 Morbid (severe) obesity due to excess calories; Z68.41 Body mass index [BMI] 40.0-44.9, adult; Z79.84 Long term (current) use of oral hypoglycemic drugs; Z79.01 Long term (current) use of anticoagulants; Z79.85 Long-term (current) use of injectable non-insulin antidiabetic drugs; Z98.890 Other specified postprocedural states; Z90.49 Acquired absence of other specified parts of digestive tract; Z86.711 Personal history of pulmonary embolism; Z86.79 Personal history of other diseases of the circulatory system; Z80.7 Family history of other malignant neoplasms of lymphoid, hematopoietic and related tissues; Z84.0 Family history of diseases of the skin and subcutaneous tissue
CPT/HCPCS: 45385; 82948; 88305; J2003; J2704; J7120

== ENCOUNTER 2024-10-26 07:16 | Outpatient (RCR) | payer MEDICARE, OTHER, SELFPAY ==
[2024-10-05 09:00] VITALS: BMI 43.4
== END 2024-12-25 10:42 | disposition home or self-care (01) ==
LOC: ANHWOC 07:16
PROVIDERS: PCP Family Medicine; Visit Provider Student in an Organized Health Care Education/Training Program
DX: S81.802A Unspecified open wound, left lower leg, initial encounter (principal); E11.65 Type 2 diabetes mellitus with hyperglycemia; I73.9 Peripheral vascular disease, unspecified
CPT/HCPCS: 99214; 99215; G0463

== ENCOUNTER 2024-11-07 21:09 | Emergency (ER) | payer MEDICARE, OTHER, SELFPAY ==
[2024-11-07] VITALS (13 sets, daily range): BP systolic 136–173; BP diastolic 55–101; PULSE 78–90; RESP 18–29; TEMP 36.6; O2SAT 95–99
--- NOTE | ~2024-11-07 | XR_ITS ---
CHEST RADIOGRAPH CLINICAL HISTORY: sob WITH RIGHT SIDED NECK AND SHOULDER PAIN . COMPARISON: 10/14/2019 TECHNIQUE: Single portable view of the chest. FINDINGS The cardiomediastinal silhouette is unremarkable. The lungs are clear. IMPRESSION: No focal infiltrate or effusion. Reviewed, dictated and finalized at location A.
--- OUTSIDE RECORDS SUMMARY | 2024-11-07 21:11 | XMS_ITS | Clinical Summary ---
Author Organization [facility] Address [address] [address] Phone Care Team Providers Care Fund Accountant Name Role Phone Augustine Willett MD Primary Care Provider Social History Tobacco Use Types Packs/Day Years Used Date Smoking Tobacco: Never Assessed Sex and Gender Information Value Date Recorded Sex Assigned at Not on file Legal Sex Male 10:08 PM CDT Gender Identity Not on file Sexual Orientation Not on file Plan of Treatment Health Maintenance Due Date Last Done Comments Hepatitis C Virus (HCV) Screening 1955 TdaP Immunization 1955 Cologuard 2002 Immunochemical Fecal Occult Blood 2002 Pneumococcal Immunization (5 0+ years) (1 of 1 - PCV) 2007 01/01/2015 Zoster Immunization (1 of 2) 2007 PSA Discussion 2012 SARS-COV-2 Immunization ( - season) 2024 06/12/2020 Colonoscopy 05/01/2024 05/01/2019 Colorectal Cancer Screening 05/01/2024 Influenza Immunization (#1) 2025 10/0 07/2021, 03/03/2020 Respiratory Syncytial Virus (RSV) Immunization (Adult) (1 - 1-dose 75+ series) 2032 Pneumococcal Immunization Combined Discontinued 01/01/2015 Hepatitis B Immunization Aged Out No longer eligible based on patient's age to complete this topic Human Papillomavirus (HPV) Immunization Aged Out No longer eligible based [...] Most Recently Relevant to Health Maintenance [facility] Care Teams Fund Accountant Relationship Specialty Start Date End Date Augustine Willett MD [address] [place] [address] PCP - General Family Medicine 05/10/19
--- OUTSIDE RECORDS SUMMARY | 2024-11-07 21:11 | XMS_ITS | Continuity of Care Document ---
Author Organization [facility] Address [address] [facility] [address] [place] [address] Phone Care Team Providers Care Banking Manager Name Role Phone Adkins OD, Tom Unavailable Unavailable Advance Directives Directive Yes / No Effective Date File Name No Information Encounters Encounter Description Practice Location Reason(s) For Visit Diagnoses Date Provider Providers Copied on Encounter [facility], [address], [place], [place], [id number], [place] tel:[phone] [facility] No Information Dec-0 9-200 0 Adkins OD Tom. [address] , [address], [place], [address], [place]. tel:[phone] Family History Family Member Type Diagnosis Age At Onset No Information Payers Payer name Insurance type Covered constitution party ID Authoriza tion(s) No Information Social [...]
--- OUTSIDE RECORDS SUMMARY | 2024-11-07 21:11 | XMS_ITS | Referral Summary ---
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
--- OUTSIDE RECORDS SUMMARY | 2024-11-07 21:11 | XMS_ITS | Clinical Summary ---
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
--- OUTSIDE RECORDS SUMMARY | 2024-11-07 21:11 | XMS_ITS | Clinical Summary ---
Author Organization [facility] Address [address] [place] [address] Phone Care Team Providers Care Boring Machine Set Up Operator Jig Name Role Phone Augustine Willett MD Primary Care Provider [phone] Allergies No known active allergies Medications ELIQUIS [...] / Low and Medium Risk (1 of 2 - PCV) 2007 COVID-19 Vaccine (2 - season) 01/02/202401/2021 Influenza Vaccine (#1) 2025 02/02/2022, 2019 Insurance [facility] Care Teams Boring Machine Set Up Operator Jig Relationship Specialty Start Date End Date Augustine Willett MD [address] [facility] [address] [facility] 120 [place] [address] PCP - General Internal Medicine 01/15/20
--- OUTSIDE RECORDS SUMMARY | 2024-11-07 21:11 | XMS_ITS | Clinical Summary ---
Author Organization [facility] Address [address] [facility] [place] [address] Phone Care Team Providers Care Signaling Project Engineer Name Role Phone Augustine Willett MD Primary Care Provider [phone] Allergies No known active allergies Medications lisinopril [...] Comments Blood Pressure 142/76 07/10/2016 2:07 PM PASSEMENTERIE WORKER Pulse 84 07/10/2016 2:07 PM PASSEMENTERIE WORKER Temperature - - Respiratory Rate - - Oxygen Saturation - - Inhaled Oxygen Concentration - - Weight 148.3 kg (327 lb) 07/10/2016 2:07 PM PASSEMENTERIE WORKER Height 182.9 cm (6') 07/10/2016 2:07 PM PASSEMENTERIE WORKER Body Mass Index 44.35 07/10/2016 2:07 PM PASSEMENTERIE WORKER Plan of Treatment Health Maintenance Due Date [...] years 1-dose series) 2017 INFLUENZA VACCINE (#1) 2024 Insurance BS BLUE ACCESS/TRUE BLUE PPO Care Teams Signaling Project Engineer Relationship Specialty Start Date End Date Augustine Willett MD [address] [facility] [address] [place] [address] PCP - General Family Practice 07/10/16
--- NOTE | 2024-11-07 21:19 | ECG_ITS ---
Test Date: 2024-11-07 21:21:57 Measurements Intervals [place] Rate: 79 P: -1 OR: 167 QRS: -1 QRSD: 99 T: 6 QT: 357 QTc: 410 Interpretive Statements SINUS RHYTHM LOW QRS VOLTAGE IN PRECORDIAL LEADS [QRS DEFLECTION < 1.0 mV IN CHEST LEADS] POOR R-WAVE PROGRESSION ABNORMAL ECG No previous ECG available for comparison Electronically Signed On 11-08-2024 07:48:15 CDT by Edy Estrada M.D.
--- OUTSIDE RECORDS SUMMARY | 2024-11-07 21:51 | XMS_ITS | Clinical Summary ---
Author Organization [facility] Address [address] [address] Phone Care Team Providers Care Raw Stock Machine Feeder Name Role Phone Augustine Willett MD Primary [...] Most Recently Relevant to Health Maintenance Insurance [facility] MEDICARE Care Teams Raw Stock Machine Feeder Relationship Specialty Start Date End Date Augustine Willett MD [address] [facility] [address] [place] [address] PCP - General Family Medicine 05/10/19
--- OUTSIDE RECORDS SUMMARY | 2024-11-07 21:51 | XMS_ITS | Continuity of Care Document ---
Author Organization [facility] Address [address] [facility] [address] [place] [address] Phone Care Team Providers Care Button Maker Name Role Phone Adkins OD, Tom Unavailable Unavailable Advance Directives Directive Yes / No Effective Date File Name No Information Encounters Encounter Description Practice Location Reason(s) For Visit Diagnoses Date Provider Providers Copied on Encounter [facility], [address], [place], [place], [id number], [place] tel:[phone] [facility] No Information Dec-0 9-200 0 Adkins OD Tom. [address], [place], [address], [place]. tel:[phone] Family History Family Member Type Diagnosis Age At Onset No Information Payers Payer name Insurance type Covered democrat ID Authoriza tion(s) No Information Social History [...]
--- OUTSIDE RECORDS SUMMARY | 2024-11-07 21:51 | XMS_ITS | Referral Summary ---
Author Organization [facility] [address] Address [address] [place] [address] Care Team Providers Care Staff Registered Nurse Name Role Phone Augustine Willett MD Primary Care Provider Allergies No known active allergies Social History Tobacco Use Types Packs/Day Years Used Date Smoking Tobacco: Never Assessed Personal Safety Answer Date Recorded Getting School Help Needed Not on file 07/16 Sex and Gender Information Value Date Recorded Sex Assigned at Not on file Legal Sex Male 1:17 AM REPAIR ARMATURE WINDER Gender Identity Not on file Sexual Orientation Not on file Plan of Treatment Not on file Insurance [facility] Care Teams Staff Registered Nurse Relationship Specialty Start Date End Date Augustine Willett MD [address] [facility] [address] [facility] 120 [place] [address] PCP - General 04/19/09
--- OUTSIDE RECORDS SUMMARY | 2024-11-07 21:51 | XMS_ITS | Clinical Summary ---
Author Organization [facility] Address [address] [place] [address] Phone Care Team Providers Care Immunology Specialist Name Role Phone Augustine Willett MD Primary Care Provider [phone] Allergies No known active allergies Medications ELIQUIS [...] Influenza Vaccine (#1) 2025 02/02/2022, 2019 Insurance [employer] Care Teams Immunology Specialist Relationship Specialty Start Date End Date Augustine Willett MD [address] [facility] [address] [facility] 120 [place] [address] PCP - General Internal Medicine 01/15/20
--- OUTSIDE RECORDS SUMMARY | 2024-11-07 21:51 | XMS_ITS | Clinical Summary ---
Author Organization [facility] Address [address] [facility] [place] [address] Phone Care Team Providers Care Relay Dispatcher Name Role Phone Augustine Willett MD Primary Care Provider [phone] Allergies No known active allergies Medications lisinopril [...] Comments Blood Pressure 142/76 07/10/2016 2:07 PM ENGRAVER PANTOGRAPH Pulse 84 07/10/2016 2:07 PM ENGRAVER PANTOGRAPH Temperature - - Respiratory Rate - - Oxygen Saturation - - Inhaled Oxygen Concentration - - Weight 148.3 kg (327 lb) 07/10/2016 2:07 PM ENGRAVER PANTOGRAPH Height 182.9 cm (6') 07/10/2016 2:07 PM ENGRAVER PANTOGRAPH Body Mass Index 44.35 07/10/2016 2:07 PM ENGRAVER PANTOGRAPH Plan of Treatment Health Maintenance Due Date [...] BS BLUE ACCESS/TRUE BLUE PPO Care Teams Relay Dispatcher Relationship Specialty Start Date End Date Augustine Willett MD [address] [facility] [address] [place] [address] PCP - General Family Practice 07/10/16
--- OUTSIDE RECORDS SUMMARY | 2024-11-07 21:51 | XMS_ITS | Clinical Summary ---
Author Organization [facility] [address] Address [address] [place] [address] Care Team Providers Care Gear Nicker Name Role Phone Augustine Willett MD Primary Care Provider Allergies No known active allergies Social History Tobacco Use Types Packs/Day Years Used Date Smoking Tobacco: Never Assessed Personal Safety Answer Date Recorded Getting School Help Needed Not on file 07/16 Sex and Gender Information Value Date Recorded Sex Assigned at Not on file Legal Sex Male 1:17 AM INSERTER Gender Identity Not on file Sexual Orientation Not on file Plan of Treatment Not on file Insurance [facility] Care Teams Gear Nicker Relationship Specialty Start Date End Date Augustine Willett MD [address] [facility] [address] [facility] [address] [place] [address] PCP - General 04/19/09
[2024-11-07 22:17] LABS: Hematocrit 46.1 % (42.0-52.0); Hemoglobin 15.1 g/dL (14.0-18.0); Immature Granulocyte Percent A 0.4 % (0-0.5); Lymphocytes Absolute Auto 0.73 K/mm3 (0.9-3.2); Mean Corpuscular HGB Conc 32.8 g/dl (32-36); Mean Corpuscular Hemoglobin 29.8 pg (26-34); Mean Corpuscular Volume 90.9 fl (80-100); Nucleated Red Blood Cells Absolute Auto 0.000 K/mm3 (0.0-0.012); Nucleated Red Blood Cells Perc 0.0 % (0.0-0.2); Platelet Count Result 166 k/mm3 (150-375); Red Blood Count 5.07 M/mm3 (4.6-6.20); White Blood Count 7.0 K/mm3 (4.5-10.0)
[2024-11-07 22:28] LABS: Alanine Aminotransferase 43 U/L (6-50); Albumin Level 4.0 g/dL (3.5-5.1); Alkaline Phosphatase 77 U/L (38-126); Anion Gap 11 mmol/L (4-12); Aspartate Amino Transferase 54 U/L (17-59); Bilirubin,Total 0.5 mg/dL (0.2-1.3); Blood Urea Nitrogen 17 mg/dL (9-20); Calcium 9.1 mg/dL (8.4-10.2); Carbon Dioxide 24 mmol/L (22-30); Chloride 103 mmol/L (98-107); Estimated CRCL calculation 99 ml/min; Estimated Glomerular Filt Rate > 60; Glucose 123 mg/dL (65-110); Lipase 39 U/L (23-300); Magnesium 1.9 mg/dL (1.6-2.3); Potassium 4.2 mmol/L (3.4-5.0); Sodium 138 mmol/L (137-145); Total Protein 7.3 g/dL (6.3-8.2)
[2024-11-07 22:40] LABS: Troponin I < 0.012 ng/mL (0.000-0.034)
--- NOTE | 2024-11-07 23:07 | ED_ITS ---
HPI - General Adult General Chief complaint: Shortness of Breath/Dyspnea Stated complaint: SHORTNESS OF BREATH X3D Time Seen by Provider: 11/07/24 21:44 History of Present Illness HPI narrative: Patient is a 69-year-old male who presents to the emergency department this evening with multiple complaints. Patient states that he is having neck pain and shoulder pain and feels as though he pulled a muscle. States that he has been feeling weak and tired. Symptoms started on Wednesday and have not a improved. Denies any history of COPD or CHF. Patient does have a history of PE and is currently on a blood thinner. Also states that he has a history of diabetes. Patient did take a muscle relaxer prior to arrival to the emergency department with minimal to no improvement of his muscle pain. Denies any recent injuries, falls or trauma. Patient does complain of increased urinary frequency and mild dysuria. No additional symptoms or concerns at this time. Related Data Allergies Allergy/AdvReac Type Severity Reaction Status Date / Time No Known Allergies Allergy Verified 11/07/24 21:43 Review of Systems 2 Review of Systems: All systems are reviewed and are negative unless stated otherwise in the HPI. [facility] Past Medical History Medical History Rhinosinusitis Peripheral vascular disease Hx of adenomatous colonic polyps Hematuria MTHFR gene mutation Stasis dermatitis Personal history of pulmonary embolism Pure hypercholesterolemia, unspecified Essential (primary) hypertension Surgical History Surgical History Status post endovenous radiofrequency ablation (RFA) of saphenous vein Hx of cholecystectomy Hx of colonoscopy Family History Family History Mother Family history of malignant neoplasm multiple myeloma Father Family history of diabetes mellitus in first degree relative Family history of type 2 diabetes mellitus Skin cancer Social History Social History Social History: Smoking status: Never smoker Second hand tobacco smoke exposure: No Alcohol intake: never Substance use: never Substance use type: does not use Lack of Transportation: No Lack of Food: Never True Current Housing: I Have Housing Concerned About Future Housing: No Difficulty Paying Gas/Electric Bills: No Difficulty Paying for Meds: No Currently Unemployed: No Education: Bachelor's Degree Living arrangements: with family Additional living arrangements comments: with sp Occupation/Education: occupation Gender identity (if verbalized by the patient): Male Sexual Orientation (if Verbalized by the Patient): Straight or Heterosexual Exam 2 Narrative: General: Alert, awake, afebrile, in no acute distress, obese. HEENT: PERRL, no rhinorrhea, no post nasal drip, oropharynx clear. Neck: Trachea midline, no JVD, no lymphadenopathy. Cardiovascular: Regular rate and rhythm, no murmurs, rubs or gallops, no peripheral edema. Respiratory: Clear to auscultation bilaterally, no tachypnea, no wheezing, no rhonchi, no rubs, no respiratory distress. Abdomen: Soft, nontender, nondistended, no rebound, no guarding, no peritoneal signs. Musculoskeletal: No joint swelling or deformity, normal muscle tone. Skin: No rashes or petechia, no signs of infection. Psychiatric: Alert and oriented, normal behavior and judgment for situation. Neurological: Alert and oriented to person, place, and time. Follows all commands. No focal deficits, speech is clear and fluent. Course Vital Signs Vital signs: Vital Signs Temperature 98 F 11/07/24 21:12 Pulse Rate 90 11/07/24 21:12 Respiratory Rate 21 H 11/07/24 21:12 Blood Pressure 173/55 H 11/07/24 21:12 Pulse Oximetry 97 11/07/24 21:12 Oxygen Delivery Room Air 11/07/24 21:12 Temperature 98 F 11/07/24 21:12 Pulse Rate 81 11/07/24 22:31 Respiratory Rate 26 H 11/07/24 22:31 Blood Pressure 158/101 H 11/07/24 23:18 Pulse Oximetry 96 11/07/24 23:18 Oxygen Delivery Room Air 11/07/24 21:41 Medical Decision Making MDM Narrative Medical decision making narrative: The patient was evaluated by myself in the emergency department. History is obtained from patient who is an independent historian and physical exam was performed. External medical records were reviewed at this time. IV was established and pertinent tests were ordered. Patient was administered 15 mg of IV Toradol and oral [place] for his musculoskeletal pain. EKG was obtained which revealed sinus rhythm rate of 79 beats per minute, no evidence of acute ischemia. EKG was independently interpreted by me and is currently pending official cardiology read. Laboratory results obtained revealing no acute process. Urinalysis did reveal urinary tract infection nitrate positive. At this time patient was administered 1 g of IV Rocephin and administered a 1 IV fluid bolus with normal saline. Imaging studies obtained included CXR which was independently interpreted by me revealing no acute cardiopulmonary process, which is pending final radiology interpretation. Differential diagnosis considerations include acute viral syndrome, infectious process such as pneumonia/UTI, dehydration, electrolyte derangements. Comorbidities impacting this visit include none. I have evaluated and discussed social determinants of health with the patient that could potentially impact subsequent diagnosis and treatment plans. On repeat assessment of the patient, reevaluation revealed that the patient is doing well and is in no acute distress. Patient symptoms have improved since he arrived to our emergency department. Repeat vital signs were all reviewed and noted to be stable. Differential diagnosis and treatment plan were discussed with the patient at bedside. Patient agrees with discussion and after shared medical decision making agrees with discharge. All questions were answered to the patient's satisfaction. Patient will follow up with his PCP in 3-5 days. Script for cephalexin was sent to patient's pharmacy to take as prescribed for his UTI. Patient was provided with strict return precautions and instructed to return to the emergency department if any new or worsening symptoms develop. The patient was discharged in stable condition. Vital Signs Vital Signs: Vital Signs Temperature 98 F 11/07/24 21:12 Pulse Rate 90 11/07/24 21:12 Respiratory Rate 21 H 11/07/24 21:12 Blood Pressure 173/55 H 11/07/24 21:12 Pulse Oximetry 97 11/07/24 21:12 Oxygen Delivery Room Air 11/07/24 21:12 Temperature 98 F 11/07/24 21:12 Pulse Rate 81 11/07/24 22:31 Respiratory Rate 26 H 11/07/24 22:31 Blood Pressure 158/101 H 11/07/24 23:18 Pulse Oximetry 96 11/07/24 23:18 Oxygen Delivery Room Air 11/07/24 21:41 Lab Data 11/07/24 22:04 11/07/24 22:04 Labs: Lab Results 11/07/24 11/07/24 Range/Units 22:04 23:32 WBC 7.0 (4.5-10.0) K/mm3 RBC 5.07 (4.6-6.20) M/mm3 Hgb 15.1 (14.0-18.0) g/dL Hct 46.1 (42.0-52.0) % MCV 90.9 (80-100) fl MCH 29.8 (26-34) pg MCHC 32.8 (32-36) g/dl RDW 14.5 (11.5-14.5) % Plt Count 166 (150-375) k/mm3 MPV 9.9 (7.4-10.4) fl Immature Gran % (Auto) 0.4 (0-0.5) % Neut % (Auto) 78.2 H (45.5-73.1) % Lymph % (Auto) 10.4 L (18.3-44.2) % [place] % (Auto) 10.6 H (2.6-8.5) % Eos % (Auto) 0.0 (0-4.4) % Baso % (Auto) 0.4 (0.2-1.2) % Lymph # (Auto) 0.73 L (0.9-3.2) K/mm3 [place] # (Auto) 0.7 H (0.1-0.6) K/mm3 Eos # (Auto) 0.0 (0-0.3) K/mm3 Baso # (Auto) 0.0 (0.0-0.1) K/mm3 Abs Immat Gran (auto) 0.03 (0.00-0.031) K/mm3 Absolute Neuts (auto) 5.5 (1.3-6.7) K/mm3 Absolute Nucleated RBC 0.000 (0.0-0.012) K/mm3 Nucleated RBC % 0.0 (0.0-0.2) % Sodium 138 (137-145) mmol/L Potassium 4.2 (3.4-5.0) mmol/L Chloride 103 (98-107) mmol/L Carbon Dioxide 24 (22-30) mmol/L Anion Gap 11 (4-12) mmol/L BUN 17 (9-20) mg/dL Creatinine 0.94 (0.7-1.3) mg/dL Estim Creat Clear Calc 99 ml/min Estimated GFR > 60 (59 - ) Glucose 123 H (65-110) mg/dL Calcium 9.1 (8.4-10.2) mg/dL Magnesium 1.9 (1.6-2.3) mg/dL Total Bilirubin 0.5 (0.2-1.3) mg/dL AST 54 (17-59) U/L ALT 43 (6-50) U/L Alkaline Phosphatase 77 (38-126) U/L Troponin I < 0.012 (0.000-0.034) ng/mL Total Protein 7.3 (6.3-8.2) g/dL Albumin 4.0 (3.5-5.1) g/dL Lipase 39 (23-300) U/L Urine Color Yellow (Yellow) Urine Appearance Cloudy H (Clear) Urine pH 6.5 (5.0-9.0) Ur Specific [place] 1.044 H (1.001-1.035) Urine Protein 2+ H (Negative) mg/dL Urine Glucose (UA) 3+ H (Negative) mg/dL Urine Ketones 3+ H (Negative) mg/dL Ur Blood (Man) 1+ H (Negative) Urine Nitrate Positive H (Negative) Urine Bilirubin Negative (Negative) Urine Urobilinogen 1.0 (<2.0) mg/dL Leukocyte Esterase Rfl 2+ H (Negative) DANIELA/UL Urine RBC 6-10 H (0-2) /hpf Urine WBC >100 H (0-3) /hpf Ur Squamous Epith Cells Occasional (Few) /hpf Urine Bacteria 4+ H /hpf Urine Casts 0-2 Discharge Plan Discharge Clinical Impression: Generalized weakness, Acute UTI (urinary tract infection), Dehydration Patient Disposition: Home Condition: Improved Instructions: Antibiotic Form, Urinary Tract Infection in Men (DC), Weakness (ED) Additional Instructions: Please follow-up with your family doctor within the next 3-5 days. Return to emergency department if any new or worsening symptoms develop. Maintain your oral hydration by drinking lots of fluids to prevent dehydration. Take the prescribed antibiotic as instructed for urinary tract infection. Patient Language: Macedonian Prescriptions: New cephalexin 500 mg capsule 500 mg PO Q6H 7 Days Qty: 28 0RF No Action Mounjaro 2.5 mg/0.5 mL pen injector 2.5 mg subcut WEEKLY Qty: 2 0RF Patient Comments: Will start after colonoscopy Rx Instructions: for 4 weeks (DME) Contour Next Test Strips Strip See Rx Instructions .ROUTE .MEDSUPPLY Qty: 100 5RF Rx Instructions: As directed to check blood sugar once daily glipizide 5 mg tablet extended release 24hr 5 mg PO DAILY Qty: 90 2RF atorvastatin 10 mg tablet See Rx Instructions .ROUTE .COMPLEX Qty: 90 2RF Dose Instruction: TAKE ONE TABLET BY MOUTH DAILY Rx Instructions: TAKE ONE TABLET BY MOUTH DAILY metformin 500 mg tablet extended release 24 hr 500 mg PO QID Qty: 360 2RF Jardiance 25 mg tablet See Rx Instructions .ROUTE .COMPLEX Qty: 90 2RF Dose Instruction: TAKE ONE TABLET BY MOUTH DAILY EVERY MORNING Rx Instructions: TAKE ONE TABLET BY MOUTH DAILY EVERY MORNING Januvia 100 mg tablet 100 mg PO DAILY Qty: 90 2RF furosemide [Lasix] 20 mg tablet 20 mg PO QAM Qty: 90 1RF lisinopril 20 mg tablet See Rx Instructions .ROUTE .COMPLEX Qty: 90 0RF Dose Instruction: TAKE 1 TABLET BY MOUTH DAILY Rx Instructions: TAKE 1 TABLET BY MOUTH DAILY Eliquis 5 mg tablet 5 mg PO BID Qty: 180 1RF Follow-up/Referrals: Augustine Willett MD [Primary Care Provider] - 3 Days Time of Disposition: 00:03
[2024-11-07] MEDS: HYDROcodone/acetaminophen (*CRX) 5-325 MG TABLET 1 TAB PO (23:17)
[2024-11-07] MEDS: KETOROLAC 15 MG/ML VIAL (*BKC) IV PUSH (23:17)
[2024-11-07 23:45] LABS: Add Urine Microscopic? YES; Appearance Urine Cloudy (Clear); Glucose Urine UA 3+ mg/dL (Negative); Leukocyte Esterase Ur 2+ LEU/UL (Negative); Nitrate Urine Positive (Negative); Non Pathogenic Casts 0-2; Specific Grav Ur 1.044 (1.001-1.035)
[2024-11-08] MEDS: SODIUM CHLORIDE 0.9% IV 1,000 ML 999 ML IV CONT (00:12)
[2024-11-08] MEDS: cefTRIAXone 1 GM in SODIUM CHLORIDE 0.9% IV 50 ML 100 ML IVPB (00:12)
[2024-11-08 01:11] VITALS: BP 146/77; PULSE 79; RESP 19; TEMP 37; O2SAT 94
== END 2024-11-08 01:25 | disposition home or self-care (01) ==
PROVIDERS: Emergency Provider Emergency Medicine; PCP Family Medicine
DX: R53.1 Weakness (principal); N39.0 Urinary tract infection, site not specified; E86.0 Dehydration; I10 Essential (primary) hypertension; Z86.711 Personal history of pulmonary embolism; Z79.01 Long term (current) use of anticoagulants; E78.5 Hyperlipidemia, unspecified
CPT/HCPCS: 36415; 71045; 80053; 81001; 83690; 83735; 84484; 85025; 87086; 93005; 96365; 96375; 99284; A9270; J0696; J1885; J7030

== ENCOUNTER 2024-11-09 13:33 | Emergency (ER) | payer MEDICARE, OTHER, SELFPAY ==
--- NOTE | ~2024-11-09 | US_ITS ---
LEFT LOWER EXTREMITY VENOUS ULTRASOUND Ordering provider: Samia Draper PA-C History: . r/o dvt . Comparison: None. FINDINGS: --COMMON FEMORAL: Patent and free of thrombus. Normal compressibility, phasic flow and augmentation. --PROXIMAL SUPERFICIAL FEMORAL: Patent and free of thrombus. Normal compressibility, phasic flow and augmentation. --DISTAL SUPERFICIAL FEMORAL: Patent and free of thrombus. Normal compressibility, phasic flow and au gmentation. --POPLITEAL: Patent and free of thrombus. Normal compressibility, phasic flow and augmentation. --POSTERIOR TIBIAL: Patent and free of thrombus. Normal compressibility, phasic flow and augmentation . IMPRESSION: Negative left lower extremity venous US. No deep vein thrombosis. Reviewed, dictated and finalized at location A.
--- NOTE | ~2024-11-09 | XR_ITS ---
XR knee LT 3V Ordering provider: Samia Draper History: . knee pain . Comparison: August 03, 2014 FINDINGS: BONES: No acute fracture or dislocation. JOINT SPACES: narrowing of the medial compartment. Marginal osteophytes in the patella. SOFT TISSUES: Normal. IMPRESSION: No acute osseous abnormality left knee. Moderate osteoarthritic changes. Reviewed, dictated and finalized at location A.
[2024-11-09 13:34] VITALS: BP 126/56; PULSE 70; RESP 16; TEMP 36.4; O2SAT 97
--- OUTSIDE RECORDS SUMMARY | 2024-11-09 13:36 | XMS_ITS | Clinical Summary ---
Author Organization [facility] Address [address] [address] Phone Care Team Providers Care Optical Model Maker And Tester Name Role Phone Augustine Willett MD Primary [...] Most Recently Relevant to Health Maintenance Insurance [facility] MEDICARE Care Teams Optical Model Maker And Tester Relationship Specialty Start Date End Date Augustine Willett MD [address] [facility] [address] [place] [address] PCP - General Family Medicine 05/10/19
--- OUTSIDE RECORDS SUMMARY | 2024-11-09 13:36 | XMS_ITS | Clinical Summary ---
Author Organization [facility] Address [address] [place] [id number] Phone Care Team Providers Care Patch Setter Name Role Phone Augustine Willett MD Primary Care Provider [phone] Allergies No known active allergies Medications ELIQUIS [...] Influenza Vaccine (#1) 2025 02/02/2022, 2019 Insurance [facility] Care Teams Patch Setter Relationship Specialty Start Date End Date Augustine Willett MD [address] [facility] [address] [facility] [address] [place] [address] PCP - General Internal Medicine 01/15/20
--- OUTSIDE RECORDS SUMMARY | 2024-11-09 13:36 | XMS_ITS | Clinical Summary ---
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
--- OUTSIDE RECORDS SUMMARY | 2024-11-09 13:36 | XMS_ITS | Referral Summary ---
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
--- OUTSIDE RECORDS SUMMARY | 2024-11-09 13:36 | XMS_ITS | Continuity of Care Document ---
Author Organization [facility] Address [address] [facility] [address] [place] [address] Phone Care Team Providers Care Educational Therapist Name Role Phone Adkisn OD, Tom Unavailable Unavailable Advance Directives Directive Yes / No Effective Date File Name No Information Encounters Encounter Description Practice Location Reason(s) For Visit Diagnoses Date Provider Providers Copied on Encounter [facility], [address], [place], [place], [id number], [place] tel:[phone] [facility] No Information Dec-0 9-200 0 Adkins OD Tom. [address] , [address], [place], [address], [place]. tel:[phone] Family History Family Member Type Diagnosis Age [...]
--- OUTSIDE RECORDS SUMMARY | 2024-11-09 13:36 | XMS_ITS | Clinical Summary ---
Author Organization [facility] Address [address] [facility] [place] [address] Phone Care Team Providers Care Online Communications Manager Name Role Phone Augustine Willett MD Primary Care Provider [phone] Allergies No known active allergies Medications lisinopril [...] Comments Blood Pressure 142/76 07/10/2016 2:07 PM WORK DISTRIBUTOR Pulse 84 07/10/2016 2:07 PM WORK DISTRIBUTOR Temperature - - Respiratory Rate - - Oxygen Saturation - - Inhaled Oxygen Concentration - - Weight 148.3 kg (327 lb) 07/10/2016 2:07 PM WORK DISTRIBUTOR Height 182.9 cm (6') 07/10/2016 2:07 PM WORK DISTRIBUTOR Body Mass Index 44.35 07/10/2016 2:07 PM WORK DISTRIBUTOR Plan of Treatment Health Maintenance Due Date [...] BS BLUE ACCESS/TRUE BLUE PPO Care Teams Online Communications Manager Relationship Specialty Start Date End Date Augustine Willett MD [address] [facility] [address] [place] [address] PCP - General Family Practice 07/10/16
--- NOTE | 2024-11-09 15:21 | ED.EXTPRO ---
HPI - Extremity Problem General Chief complaint: Extremity Problem,Nontraumatic Stated complaint: r/o DVT in the L leg Time Seen by Provider: 11/09/24 16:10 Focused HPI: 69-year-old male history of PVD, hypertension, DVT and PE on Eliquis presents emergency department for DVT rule out. Patient is currently prescribed Eliquis which he states he normally is compliant with did miss a few doses earlier this week due to not feeling well. He states yesterday he began having pain and swelling to the left knee and his family was concerned he was having swelling to the remainder of his extremity. He contacted his PCP recently come to the ER to rule out a DVT. He is not having any chest pain or shortness of breath. He has chronic lower extremity wounds which are being managed by wound care. Patient states the wounds are unchanged. He denies surrounding warmth erythema, fevers. Denies recent injury or trauma to his leg or knee. Patient states the pain in his knee is worse with ambulation. GENERAL: Well-appearing, well-nourished, and in no acute distress. HEAD: Normocephalic, atraumatic. CHEST: Clear to auscultation. ?No respiratory distress. EXT: LLE: Chronic hyperpigmentation to the left lower extremity with multiple chronic wounds to the left anterior lateral tib-fib, no active bleeding or purulence, no induration or fluctuation, no erythema. No crepitus. Tenderness to the tibial tuberosity with mild overlying edema. Patient has full range of motion of knee. No warmth erythema to the knee. DP pulses 2+. Sensation intact. HEART: Regular rate and rhythm.? NEURO: ?Alert and oriented x3. Patient screened in triage and initial orders placed.? ?Additional care and disposition to be based upon?diagnostic testing and treatment. Related Data Allergies Allergy/AdvReac Type Severity Reaction Status Date / Time No Known Allergies Allergy Verified 11/13/24 10:40 [facility] Past Medical History Medical History Rhinosinusitis Peripheral vascular disease Hx of adenomatous colonic polyps Hematuria MTHFR gene mutation Stasis dermatitis Personal history of pulmonary embolism Pure hypercholesterolemia, unspecified Essential (primary) hypertension Surgical History Surgical History Status post endovenous radiofrequency ablation (RFA) of saphenous vein Hx of cholecystectomy Hx of colonoscopy Family History Family History Mother Family history of malignant neoplasm multiple myeloma Father Family history of diabetes mellitus in first degree relative Family history of type 2 diabetes mellitus Skin cancer Social History Social History Social History: Smoking status: Never smoker Second hand tobacco smoke exposure: No Alcohol intake: never Substance use: never Substance use type: does not use Lack of Transportation: No Lack of Food: Never True Current Housing: I Have Housing Concerned About Future Housing: No Difficulty Paying Gas/Electric Bills: No Difficulty Paying for Meds: No Currently Unemployed: No Education: Bachelor's Degree Living arrangements: with family Additional living arrangements comments: with sp Occupation/Education: occupation Gender identity (if verbalized by the patient): Male Sexual Orientation (if Verbalized by the Patient): Straight or Heterosexual Course Vital Signs Vital signs: Vital Signs Temperature 97.6 F 11/09/24 13:34 Pulse Rate 70 11/09/24 13:34 Respiratory Rate 16 11/09/24 13:34 Blood Pressure 126/56 L 11/09/24 13:34 Pulse Oximetry 97 11/09/24 13:34 Oxygen Delivery Room Air 11/09/24 13:34 Temperature 97.6 F 11/09/24 13:34 Pulse Rate 67 11/09/24 17:49 Respiratory Rate 18 11/09/24 17:49 Blood Pressure 147/78 H 11/09/24 17:49 Pulse Oximetry 100 11/09/24 17:49 Oxygen Delivery Room Air 11/09/24 13:34 MDM - Extremity (Nontraumatic) Lab Data 11/09/24 16:48 11/09/24 16:48 Labs: Lab Results 11/09/24 Range/Units 16:48 WBC 11.1 H (4.5-10.0) K/mm3 RBC 4.71 (4.6-6.20) M/mm3 Hgb 14.1 (14.0-18.0) g/dL Hct 42.3 (42.0-52.0) % MCV 89.8 (80-100) fl MCH 29.9 (26-34) pg MCHC 33.3 (32-36) g/dl RDW 14.4 (11.5-14.5) % Plt Count 173 (150-375) k/mm3 MPV 9.7 (7.4-10.4) fl Immature Gran % (Auto) 0.7 H (0-0.5) % Neut % (Auto) 72.7 (45.5-73.1) % Lymph % (Auto) 13.0 L (18.3-44.2) % [place] % (Auto) 13.0 H (2.6-8.5) % Eos % (Auto) 0.2 (0-4.4) % Baso % (Auto) 0.4 (0.2-1.2) % Lymph # (Auto) 1.44 (0.9-3.2) K/mm3 [place] # (Auto) 1.4 H (0.1-0.6) K/mm3 Eos # (Auto) 0.0 (0-0.3) K/mm3 Baso # (Auto) 0.0 (0.0-0.1) K/mm3 Abs Immat Gran (auto) 0.08 H (0.00-0.031) K/mm3 Absolute Neuts (auto) 8.1 H (1.3-6.7) K/mm3 Absolute Nucleated RBC 0.000 (0.0-0.012) K/mm3 Nucleated RBC % 0.0 (0.0-0.2) % PT 16.6 H (11.1-14.7) Seconds INR 1.4 APTT 32.3 (22.3-36.8) Seconds Sodium 138 (137-145) mmol/L Potassium 4.1 (3.4-5.0) mmol/L Chloride 102 (98-107) mmol/L Carbon Dioxide 25 (22-30) mmol/L Anion Gap 11 (4-12) mmol/L BUN 19 (9-20) mg/dL Creatinine 0.79 (0.7-1.3) mg/dL Estim Creat Clear Calc 117 ml/min Estimated GFR > 60 (59 - ) Glucose 86 (65-110) mg/dL Calcium 8.7 (8.4-10.2) mg/dL Total Bilirubin 0.5 (0.2-1.3) mg/dL AST 41 (17-59) U/L ALT 36 (6-50) U/L Alkaline Phosphatase 89 (38-126) U/L Total Protein 6.9 (6.3-8.2) g/dL Albumin 3.5 (3.5-5.1) g/dL Discharge Plan Discharge Clinical Impression: Arthritis Patient Disposition: Home Condition: Stable Instructions: Antibiotic Form, Arthritis (ED) Patient Language: Congolese Prescriptions: No Action Mounjaro 2.5 mg/0.5 mL pen injector 2.5 mg subcut WEEKLY Qty: 2 0RF Patient Comments: Will start after colonoscopy Rx Instructions: for 4 weeks cyclobenzaprine 5 mg tablet 5 mg PO TID PRN (Reason: muscle spasm) Qty: 30 1RF cephalexin 500 mg capsule 500 mg PO Q6H 7 Days Qty: 28 0RF (DME) Contour Next Test Strips Strip See Rx Instructions .ROUTE .MEDSUPPLY Qty: 100 5RF Rx Instructions: As directed to check blood sugar once daily glipizide 5 mg tablet extended release 24hr 5 mg PO DAILY Qty: 90 2RF atorvastatin 10 mg tablet See Rx Instructions .ROUTE .COMPLEX Qty: 90 2RF Dose Instruction: TAKE ONE TABLET BY MOUTH DAILY Rx Instructions: TAKE ONE TABLET BY MOUTH DAILY metformin 500 mg tablet extended release 24 hr 500 mg PO QID Qty: 360 2RF Jardiance 25 mg tablet See Rx Instructions .ROUTE .COMPLEX Qty: 90 2RF Dose Instruction: TAKE ONE TABLET BY MOUTH DAILY EVERY MORNING Rx Instructions: TAKE ONE TABLET BY MOUTH DAILY EVERY MORNING Januvia 100 mg tablet 100 mg PO DAILY Qty: 90 2RF furosemide [Lasix] 20 mg tablet 20 mg PO QAM Qty: 90 1RF lisinopril 20 mg tablet See Rx Instructions .ROUTE .COMPLEX Qty: 90 0RF Dose Instruction: TAKE 1 TABLET BY MOUTH DAILY Rx Instructions: TAKE 1 TABLET BY MOUTH DAILY Eliquis 5 mg tablet 5 mg PO BID Qty: 180 1RF Follow-up/Referrals: Augustine Willett MD [Primary Care Provider] -
--- OUTSIDE RECORDS SUMMARY | 2024-11-09 15:23 | XMS_ITS | Clinical Summary ---
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
--- OUTSIDE RECORDS SUMMARY | 2024-11-09 15:23 | XMS_ITS | Continuity of Care Document ---
Author Organization [facility] Address [address] [facility] [address] [place] [address] Phone Care Team Providers Care Supervisor Feed Mill Name Role Phone Adkins OD, Tom Unavailable Unavailable Advance Directives Directive Yes / No Effective Date File Name No Information Encounters Encounter Description Practice Location Reason(s) For Visit Diagnoses Date Provider Providers Copied on Encounter [facility], [address], [place], [place], [id number], [place] tel:[phone] [facility] No Information Dec-0 9-200 0 Adkins OD Tom. [address] , [address], [place], [address], [place]. tel:[phone] Family History Family Member Type Diagnosis Age [...]
--- OUTSIDE RECORDS SUMMARY | 2024-11-09 15:23 | XMS_ITS | Clinical Summary ---
Author Organization [facility] Address [address] [place] [place] [address] Phone Care Team Providers Care Grinder Machine Knife Setter Name Role Phone Augustine Willett MD Primary Care Provider [phone] Allergies No known active allergies Medications lisinopril [...] Comments Blood Pressure 142/76 07/10/2016 2:07 PM DIRECTOR OF PROPERTY MANAGEMENT Pulse 84 07/10/2016 2:07 PM DIRECTOR OF PROPERTY MANAGEMENT Temperature - - Respiratory Rate - - Oxygen Saturation - - Inhaled Oxygen Concentration - - Weight 148.3 kg (327 lb) 07/10/2016 2:07 PM DIRECTOR OF PROPERTY MANAGEMENT Height 182.9 cm (6') 07/10/2016 2:07 PM DIRECTOR OF PROPERTY MANAGEMENT Body Mass Index 44.35 07/10/2016 2:07 PM DIRECTOR OF PROPERTY MANAGEMENT Plan of Treatment Health Maintenance Due Date [...] BS BLUE ACCESS/TRUE BLUE PPO Care Teams Grinder Machine Knife Setter Relationship Specialty Start Date End Date Augustine Willett MD [address] [facility] [address] [place] [address] PCP - General Family Practice 07/10/16
--- OUTSIDE RECORDS SUMMARY | 2024-11-09 15:23 | XMS_ITS | Clinical Summary ---
Author Organization [facility] Address [address] [address] Phone Care Team Providers Care Workers Compensation Legal Secretary Name Role Phone Augustine Willett MD Primary [...] Most Recently Relevant to Health Maintenance Insurance [facility] MEDICARE Care Teams Workers Compensation Legal Secretary Relationship Specialty Start Date End Date Augustine Willett MD [address] [facility] [address] [place] [address] PCP - General Family Medicine 05/10/19
--- OUTSIDE RECORDS SUMMARY | 2024-11-09 15:23 | XMS_ITS | Clinical Summary ---
Author Organization [facility] Address [address] [place] [address] Phone Care Team Providers Care Trim Machine Operator Name Role Phone Augustine Willett MD Primary Care Provider [phone] Allergies No known active allergies Medications ELIQUIS [...] Influenza Vaccine (#1) 2025 02/02/2022, 2019 Insurance [facility] Care Teams Trim Machine Operator Relationship Specialty Start Date End Date Augustine Willett MD [address] [facility] [address] [facility] 120 [place] [address] PCP - General Internal Medicine 01/15/20
--- OUTSIDE RECORDS SUMMARY | 2024-11-09 15:23 | XMS_ITS | Referral Summary ---
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
[2024-11-09 16:30] VITALS: BP 130/65; PULSE 65; RESP 20; O2SAT 97
--- NOTE | 2024-11-09 16:41 | ED_ITS ---
HPI - Extremity Problem General Chief complaint: Extremity Problem,Nontraumatic Stated complaint: r/o DVT in the L leg Time Seen by Provider: 11/09/24 16:10 History of Present Illness HPI Narrative: Pt presents with left leg and knee pain and swelling for 8 days but pain in knee area had gotten worse and now it is hard for him to walk. Pt has a hx of dvt and PE and is on eliquis. Pt denies SOB or CP. Pt sent in by PCP to rule out DVT. Related Data Allergies Allergy/AdvReac Type Severity Reaction Status Date / Time No Known Allergies Allergy Verified 11/07/24 21:43 Review of Systems 2 Review of Systems: All systems reviewed & are unremarkable except as noted in HPI and below PMFSH Past Medical History Medical History Rhinosinusitis Peripheral vascular disease Hx of adenomatous colonic polyps Hematuria MTHFR gene mutation Stasis dermatitis Personal history of pulmonary embolism Pure hypercholesterolemia, unspecified Essential (primary) hypertension Surgical History Surgical History Status post endovenous radiofrequency ablation (RFA) of saphenous vein Hx of cholecystectomy Hx of colonoscopy Family History Family History Mother Family history of malignant neoplasm multiple myeloma Father Family history of diabetes mellitus in first degree relative Family history of type 2 diabetes mellitus Skin cancer Social History Social History Social History: Smoking status: Never smoker Second hand tobacco smoke exposure: No Alcohol intake: never Substance use: never Substance use type: does not use Lack of Transportation: No Lack of Food: Never True Current Housing: I Have Housing Concerned About Future Housing: No Difficulty Paying Gas/Electric Bills: No Difficulty Paying for Meds: No Currently Unemployed: No Education: Bachelor's Degree Living arrangements: with family Additional living arrangements comments: with sp Occupation/Education: occupation Gender identity (if verbalized by the patient): Male Sexual Orientation (if Verbalized by the Patient): Straight or Heterosexual Exam 2 Const: General: healthy appearing and no acute distress Nutritional Appearance: well nourished Orientation/consciousness: patient oriented x3 Limitations: no limitations Resp: Effort & Inspection: normal respiratory effort Auscultation: clear to auscultation bilaterally Cardio: Rate: regular rate Rhythm: regular rhythm GI: GI Palp: Yes Soft to palpation and Yes Tenderness to palpation present (GI) Auscultation: normal bowel sounds Skin: Other: chronic brawny skin changes to LLE and chronic healing wound Neuro: General: patient oriented x3, moves all extremities, no meningeal signs and no focal motor deficits Cranial nerves: Yes Nystagmus not present S peech: normal speech Extrem: Other: swelling to left knee and left leg Psych: Mental Status: mental status grossly normal Affect: normal affect Attitude: cooperative Course Vital Signs Vital signs: Vital Signs Temperature 97.6 F 11/09/24 13:34 Pulse Rate 70 11/09/24 13:34 Respiratory Rate 16 11/09/24 13:34 Blood Pressure 126/56 L 11/09/24 13:34 Pulse Oximetry 97 11/09/24 13:34 Oxygen Delivery Room Air 11/09/24 13:34 Temperature 97.6 F 11/09/24 13:34 Pulse Rate 67 11/09/24 17:49 Respiratory Rate 18 11/09/24 17:49 Blood Pressure 147/78 H 11/09/24 17:49 Pulse Oximetry 100 11/09/24 17:49 Oxygen Delivery Room Air 11/09/24 13:34 MDM - Extremity (Nontraumatic) MDM Narrative Medical decision making narrative: Pt sent in for eval of left leg swelling and to rule out dvt in patient with history of DVT and PE. knee seems to be most painful so will x ray knee as well venous doppler will check labs in case. labs ok. x ray djd, doppler neg for dvt. will send home on pain meds for arthritis Lab Data 11/09/24 16:48 11/09/24 16:48 Labs: Lab Results 11/09/24 Range/Units 16:48 WBC 11.1 H (4.5-10.0) K/mm3 RBC 4.71 (4.6-6.20) M/mm3 Hgb 14.1 (14.0-18.0) g/dL Hct 42.3 (42.0-52.0) % MCV 89.8 (80-100) fl MCH 29.9 (26-34) pg MCHC 33.3 (32-36) g/dl RDW 14.4 (11.5-14.5) % Plt Count 173 (150-375) k/mm3 MPV 9.7 (7.4-10.4) fl Immature Gran % (Auto) 0.7 H (0-0.5) % Neut % (Auto) 72.7 (45.5-73.1) % Lymph % (Auto) 13.0 L (18.3-44.2) % [place] % (Auto) 13.0 H (2.6-8.5) % Eos % (Auto) 0.2 (0-4.4) % Baso % (Auto) 0.4 (0.2-1.2) % Lymph # (Auto) 1.44 (0.9-3.2) K/mm3 [place] # (Auto) 1.4 H (0.1-0.6) K/mm3 Eos # (Auto) 0.0 (0-0.3) K/mm3 Baso # (Auto) 0.0 (0.0-0.1) K/mm3 Abs Immat Gran (auto) 0.08 H (0.00-0.031) K/mm3 Absolute Neuts (auto) 8.1 H (1.3-6.7) K/mm3 Absolute Nucleated RBC 0.000 (0.0-0.012) K/mm3 Nucleated RBC % 0.0 (0.0-0.2) % PT 16.6 H (11.1-14.7) Seconds INR 1.4 APTT 32.3 (22.3-36.8) Seconds Sodium 138 (137-145) mmol/L Potassium 4.1 (3.4-5.0) mmol/L Chloride 102 (98-107) mmol/L Carbon Dioxide 25 (22-30) mmol/L Anion Gap 11 (4-12) mmol/L BUN 19 (9-20) mg/dL Creatinine 0.79 (0.7-1.3) mg/dL Estim Creat Clear Calc 117 ml/min Estimated GFR > 60 (59 - ) Glucose 86 (65-110) mg/dL Calcium 8.7 (8.4-10.2) mg/dL Total Bilirubin 0.5 (0.2-1.3) mg/dL AST 41 (17-59) U/L ALT 36 (6-50) U/L Alkaline Phosphatase 89 (38-126) U/L Total Protein 6.9 (6.3-8.2) g/dL Albumin 3.5 (3.5-5.1) g/dL Discharge Plan Discharge Clinical Impression: Arthritis Patient Disposition: Home Condition: Stable Instructions: Antibiotic Form, Arthritis (ED) Patient Language: Faroese Prescriptions: New hydrocodone-acetaminophen 5-325 mg tablet 1 tablet PO Q8H PRN (Reason: pain) Qty: 14 0RF No Action Mounjaro 2.5 mg/0.5 mL pen injector 2.5 mg subcut WEEKLY Qty: 2 0RF Patient Comments: Will start after colonoscopy Rx Instructions: for 4 weeks cephalexin 500 mg capsule 500 mg PO Q6H 7 Days Qty: 28 0RF (DME) Contour Next Test Strips Strip See Rx Instructions .ROUTE .MEDSUPPLY Qty: 100 5RF Rx Instructions: As directed to check blood sugar once daily glipizide 5 mg tablet extended release 24hr 5 mg PO DAILY Qty: 90 2RF atorvastatin 10 mg tablet See Rx Instructions .ROUTE .COMPLEX Qty: 90 2RF Dose Instruction: TAKE ONE TABLET BY MOUTH DAILY Rx Instructions: TAKE ONE TABLET BY MOUTH DAILY metformin 500 mg tablet extended release 24 hr 500 mg PO QID Qty: 360 2RF Jardiance 25 mg tablet See Rx Instructions .ROUTE .COMPLEX Qty: 90 2RF Dose Instruction: TAKE ONE TABLET BY MOUTH DAILY EVERY MORNING Rx Instructions: TAKE ONE TABLET BY MOUTH DAILY EVERY MORNING Januvia 100 mg tablet 100 mg PO DAILY Qty: 90 2RF furosemide [Lasix] 20 mg tablet 20 mg PO QAM Qty: 90 1RF lisinopril 20 mg tablet See Rx Instructions .ROUTE .COMPLEX Qty: 90 0RF Dose Instruction: TAKE 1 TABLET BY MOUTH DAILY Rx Instructions: TAKE 1 TABLET BY MOUTH DAILY Eliquis 5 mg tablet 5 mg PO BID Qty: 180 1RF Follow-up/Referrals: Augustine Willett MD [Primary Care Provider] -
[2024-11-09 16:59] LABS: Hematocrit 42.3 % (42.0-52.0); Hemoglobin 14.1 g/dL (14.0-18.0); Immature Granulocyte Percent A 0.7 % (0-0.5); Lymphocytes Absolute Auto 1.44 K/mm3 (0.9-3.2); Mean Corpuscular HGB Conc 33.3 g/dl (32-36); Mean Corpuscular Hemoglobin 29.9 pg (26-34); Mean Corpuscular Volume 89.8 fl (80-100); Nucleated Red Blood Cells Absolute Auto 0.000 K/mm3 (0.0-0.012); Nucleated Red Blood Cells Perc 0.0 % (0.0-0.2); Platelet Count Result 173 k/mm3 (150-375); Red Blood Count 4.71 M/mm3 (4.6-6.20); White Blood Count 11.1 K/mm3 (4.5-10.0)
[2024-11-09 17:08] LABS: Alanine Aminotransferase 36 U/L (6-50); Albumin Level 3.5 g/dL (3.5-5.1); Alkaline Phosphatase 89 U/L (38-126); Anion Gap 11 mmol/L (4-12); Aspartate Amino Transferase 41 U/L (17-59); Bilirubin,Total 0.5 mg/dL (0.2-1.3); Blood Urea Nitrogen 19 mg/dL (9-20); Calcium 8.7 mg/dL (8.4-10.2); Carbon Dioxide 25 mmol/L (22-30); Chloride 102 mmol/L (98-107); Estimated CRCL calculation 117 ml/min; Estimated Glomerular Filt Rate > 60; Glucose 86 mg/dL (65-110); Potassium 4.1 mmol/L (3.4-5.0); Sodium 138 mmol/L (137-145); Total Protein 6.9 g/dL (6.3-8.2)
[2024-11-09 17:13] LABS: INR 1.4; Partial Thromboplastin Time 32.3 Seconds (22.3-36.8); Prothrombin Time 16.6 Seconds (11.1-14.7)
[2024-11-09 17:49] VITALS: BP 147/78; PULSE 67; RESP 18; O2SAT 100
== END 2024-11-09 18:09 | disposition home or self-care (01) ==
PROVIDERS: Emergency Provider Emergency Medicine; PCP Family Medicine
DX: M19.90 Unspecified osteoarthritis, unspecified site (principal); M25.562 Pain in left knee; M79.89 Other specified soft tissue disorders; I10 Essential (primary) hypertension; I73.9 Peripheral vascular disease, unspecified; Z86.718 Personal history of other venous thrombosis and embolism; Z86.711 Personal history of pulmonary embolism; Z79.01 Long term (current) use of anticoagulants
CPT/HCPCS: 36415; 73562; 80053; 85025; 85610; 85730; 93971; 99284

== ENCOUNTER 2024-11-20 11:11 | Outpatient (CLI) | payer MEDICARE, OTHER, SELFPAY ==
--- NOTE | ~2024-11-20 | US_ITS ---
US soft tissue LE LT 11/20/2024 11:36 Indication: Localized swelling. Palpable abnormality of the left lower leg. Procedure: Ultrasound of the left lower extremity in the area of palpable concern Comparison: No prior studies for comparison. Findings: No discrete mass or fluid collection identified. Varicose veins are identified with slow fl ow. Impression: 1: Varicose veins. No discrete mass identified. Reviewed, dictated and finalized at location A. Impression: 1: Varicose veins. No discrete mass identified.
== END 2024-11-20 11:12 | disposition home or self-care (01) ==
LOC: MICIMG 11:12
PROVIDERS: PCP Family Medicine; Visit Provider Physician Assistant
DX: R22.42 Localized swelling, mass and lump, left lower limb (principal); I83.92 Asymptomatic varicose veins of left lower extremity
CPT/HCPCS: 76882

== ENCOUNTER 2024-11-24 16:27 | Outpatient (CLI) | payer MEDICARE, OTHER, SELFPAY ==
--- NOTE | ~2024-11-24 | CT_ITS ---
EXAMINATION: CT abdomen pelvis wo con DATE: 11/24/2024 16:52 INDICATION: Unspecified abdominal pain TECHNIQUE: Computed tomography (CT) of the abdomen and pelvis was performed without intravenous contr ast. Automated exposure control and iterative reconstruction technique were employed. The dose-length product was 1451.00 mGy-cm. COMPARISON: None FINDINGS: Dependent and basilar atelectasis in the left lower lobe along side a small left pleural effusion. Ad ditional mild discoid atelectasis in the right lower lobe. Heart size is normal. No pericardial or pl eural effusion. Moderate-sized sliding-type hiatal hernia. Cholecystectomy clips the gallbladder miranda a. A few small scattered hepatic and splenic calcifications consistent with old granulomatous disease . Pancreas, right kidney and bilateral adrenal glands are normal. Couple low-attenuation right renal cysts the larger measuring 1.8 cm at the upper pole. No urolithiasis or hydronephrosis. Normal append ix. Small fat-containing umbilical hernia and moderate size multilobulated supraumbilical ventral her juan containing fat and a couple surgical clips. Short segment of small bowel extends across the orifi ce of the hernias. No bowel obstruction. Bladder is normal. Prostatomegaly measuring 5.3 x 4.5 cm. No free intraperitoneal gas or fluid. No pathologically enlarged abdominal or pelvic lymphadenopathy. IMPRESSION: 1. Small left pleural effusion with associated left basilar compressive atelectasis. 2. No acute intra-abdominal/pelvic process. 3. Moderate-sized sliding-type hiatal hernia. 4. Short segment of nonobstructed small bowel extends across the widemouthed orifice of a moderate-si zed multilobulated fat-containing supraumbilical ventral hernia. 5. Small fat-containing umbilical hernia. 6. Prostatomegaly. Reviewed, dictated and finalized at location A. IMPRESSION: 1. Small left pleural effusion with associated left basilar compressive atelect asis. 2. No acute intra-abdominal/pelvic process. 3. Moderate-sized sliding-type hiatal hernia. 4. Short segment of nonobstructed small bowel extends across the widemouthed or ifice of a moderate-sized multilobulated fat-containing supraumbilical ventral hernia. 5. Small fat-containing umbilical hernia. 6. Prostatomegaly.
--- OUTSIDE RECORDS SUMMARY | 2024-11-24 16:31 | XMS_ITS | Continuity of Care Document ---
Author Organization [facility] Address [address] [facility] [address] [place] [address] Phone Care Team Providers Care Kennel Attendant Name Role Phone Adkins OD, Tom Unavailable Unavailable Advance Directives Directive Yes / No Effective Date File Name No Information Encounters Encounter Description Practice Location Reason(s) For Visit Diagnoses Date Provider Providers Copied on Encounter [facility], [address], [place], [place], [address], [place] tel:[phone] [facility] No Information Dec-0 9-200 0 Adkins OD Tom. [address] , [address], [place], [address], [place]. tel:[phone] Family History Family Member Type Diagnosis Age [...]
--- OUTSIDE RECORDS SUMMARY | 2024-11-24 16:31 | XMS_ITS | Clinical Summary ---
Author Organization [facility] Address [address] [place] [address] Phone Care Team Providers Care Sheet Tailer Name Role Phone Augustine Willett MD Primary Care Provider [phone] Allergies No known active allergies Medications ELIQUIS [...] Influenza Vaccine (#1) 2025 02/02/2022, 2019 Insurance [facility] Care Teams Sheet Tailer Relationship Specialty Start Date End Date Augustine Willett MD [address] [facility] [address] [facility] 120 [place] [address] PCP - General Internal Medicine 01/15/20
--- OUTSIDE RECORDS SUMMARY | 2024-11-24 16:32 | XMS_ITS | Referral Summary ---
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
--- OUTSIDE RECORDS SUMMARY | 2024-11-24 16:32 | XMS_ITS | Clinical Summary ---
Author Organization [facility] Address [address] [address] Phone Care Team Providers Care Business Technology Teacher Name Role Phone Augustine Willett MD [...] [facility] MEDIC[facility] Care Teams Business Technology Teacher Relationship Specialty Start Date End Date Augustine Willett MD [address] [facility] [address] [place] [address] PCP - General Family Medicine 05/10/19
--- OUTSIDE RECORDS SUMMARY | 2024-11-24 16:32 | XMS_ITS | Clinical Summary ---
Author Organization 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
--- OUTSIDE RECORDS SUMMARY | 2024-11-24 16:32 | XMS_ITS | Clinical Summary ---
Author Organization [facility] Address [address] [facility] [place] [address] Phone Care Team Providers Care Horse Racing Analyst Name Role Phone Augustine Willett MD Primary Care Provider [phone] Allergies No known active allergies Medications lisinopril [...] Comments Blood Pressure 142/76 07/10/2016 2:07 PM RED LEADER Pulse 84 07/10/2016 2:07 PM RED LEADER Temperature - - Respiratory Rate - - Oxygen Saturation - - Inhaled Oxygen Concentration - - Weight 148.3 kg (327 lb) 07/10/2016 2:07 PM RED LEADER Height 182.9 cm (6') 07/10/2016 2:07 PM RED LEADER Body Mass Index 44.35 07/10/2016 2:07 PM RED LEADER Plan of Treatment Health Maintenance Due Date [...] BS BLUE ACCESS/TRUE BLUE PPO Care Teams Horse Racing Analyst Relationship Specialty Start Date End Date Augustine Willett MD [address] [facility] 120 [place] [address] PCP - General Family Practice 07/10/16
== END 2024-11-24 16:28 | disposition home or self-care (01) ==
PROVIDERS: PCP Family Medicine; Visit Provider Physician Assistant
DX: R31.9 Hematuria, unspecified (principal); Z87.442 Personal history of urinary calculi; J90 Pleural effusion, not elsewhere classified; K44.9 Diaphragmatic hernia without obstruction or gangrene; K42.9 Umbilical hernia without obstruction or gangrene; N40.0 Benign prostatic hyperplasia without lower urinary tract symptoms
CPT/HCPCS: 74176

== ENCOUNTER 2024-11-27 17:02 | Outpatient (CLI) | payer MEDICARE, OTHER, SELFPAY ==
--- NOTE | ~2024-11-27 | XR_ITS ---
XR lumbar spine min 4V 11/27/2024 17:30 Indication: Back pain Procedure: 5 views lumbar spine Comparison: 08/24/2019 Findings: There is disc narrowing at all lumbar levels. There is multilevel facet hypertrophy. No fra cture, subluxation or dislocation. There are cholecystectomy clips. There is facet hypertrophy at L3- 4 through L5-S1. No evidence for spondylolisthesis. Impression: 1: Moderate lumbar spondylosis. Reviewed, dictated and finalized at location A. Impression: 1: Moderate lumbar spondylosis.
--- OUTSIDE RECORDS SUMMARY | 2024-11-27 17:07 | XMS_ITS | Referral Summary ---
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
--- OUTSIDE RECORDS SUMMARY | 2024-11-27 17:07 | XMS_ITS | Clinical Summary ---
Author Organization [facility] Address [address] [place] [address] Phone Care Team Providers Care Aquaculture Worker Name Role Phone Augustine Willett MD Primary Care Provider [phone] Allergies No known active allergies Medications ELIQUIS [...] Influenza Vaccine (#1) 2025 02/02/2022, 2019 Insurance [facility] Care Teams Aquaculture Worker Relationship Specialty Start Date End Date Augustine Willett MD [address] [facility] 162 [facility] 120 [place] [address] PCP - General Internal Medicine 01/15/20
--- OUTSIDE RECORDS SUMMARY | 2024-11-27 17:07 | XMS_ITS | Clinical Summary ---
Author Organization [facility] Address [address] [address] Phone Care Team Providers Care Etl Consultant Name Role Phone Augustine Willett MD Primary [...] Most Recently Relevant to Health Maintenance Insurance [facility] MEDICARE Care Teams Etl Consultant Relationship Specialty Start Date End Date Augustine Willett MD [address] [facility] [address] [place] [address] PCP - General Family Medicine 05/10/19
--- OUTSIDE RECORDS SUMMARY | 2024-11-27 17:07 | XMS_ITS | Continuity of Care Document ---
Author Organization [facility] Address [address] [facility] [address] [place] [address] Phone Care Team Providers Care Gathering Worker Name Role Phone Adkins OD, Tom Unavailable Unavailable Advance Directives Directive Yes / No Effective Date File Name No Information Encounters Encounter Description Practice Location Reason(s) For Visit Diagnoses Date Provider Providers Copied on Encounter [facility], [address], [place], [place], [id number], [place] tel:[phone] [facility] No Information Dec-0 9-200 0 Adkins OD Tom. [address], [place], [address], [place]. tel:[phone] Family History Family Member Type Diagnosis Age At Onset No Information Payers Payer name Insurance type Covered republican ID Authoriza tion(s) No Information Social History [...]
--- OUTSIDE RECORDS SUMMARY | 2024-11-27 17:07 | XMS_ITS | Clinical Summary ---
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
--- OUTSIDE RECORDS SUMMARY | 2024-11-27 17:07 | XMS_ITS | Clinical Summary ---
Author Organization [facility] Address [address] [facility] [address] Phone Care Team Providers Care Stud Driver Name Role Phone Augustine Willett MD Primary Care Provider [phone] Allergies No known active allergies Medications lisinopril [...] Comments Blood Pressure 142/76 07/10/2016 2:07 PM ACADEMIC AFFAIRS VICE PRESIDENT Pulse 84 07/10/2016 2:07 PM ACADEMIC AFFAIRS VICE PRESIDENT Temperature - - Respiratory Rate - - Oxygen Saturation - - Inhaled Oxygen Concentration - - Weight 148.3 kg (327 lb) 07/10/2016 2:07 PM ACADEMIC AFFAIRS VICE PRESIDENT Height 182.9 cm (6') 07/10/2016 2:07 PM ACADEMIC AFFAIRS VICE PRESIDENT Body Mass Index 44.35 07/10/2016 2:07 PM ACADEMIC AFFAIRS VICE PRESIDENT Plan of Treatment Health Maintenance Due Date [...] BS BLUE ACCESS/TRUE BLUE PPO Care Teams Stud Driver Relationship Specialty Start Date End Date Augustine Willett MD [address] [facility] [address] [place] [address] PCP - General Family Practice 07/10/16
== END 2024-11-27 17:03 | disposition home or self-care (01) ==
PROVIDERS: PCP Family Medicine; Visit Provider Physician Assistant
DX: M47.816 Spondylosis without myelopathy or radiculopathy, lumbar region (principal)
CPT/HCPCS: 72110

== ENCOUNTER 2025-01-11 09:13 | Outpatient (RCR) | payer MEDICARE, OTHER, SELFPAY ==
--- NOTE | 2025-01-11 09:27 | WNDPHOTO ---
PHOTO ONLY - See Nursing Notes and/ or assessments for documentation.
== END 2025-04-02 12:17 | disposition home or self-care (01) ==
LOC: ANHWOC 09:13
PROVIDERS: PCP Family Medicine; Visit Provider Physician Assistant Medical
DX: S81.802A Unspecified open wound, left lower leg, initial encounter (principal); I87.8 Other specified disorders of veins; Z48.00 Encounter for change or removal of nonsurgical wound dressing
CPT/HCPCS: 99213; G0463

== ENCOUNTER 2025-01-15 13:26 | Outpatient (CLI) | payer MEDICARE, OTHER, SELFPAY ==
--- OUTSIDE RECORDS SUMMARY | 2000-04-10 06:15 | XMS_ITS | Continuity of Care Document ---
Author Organization [facility] Address [address] [place] [address] Phone Care Team Providers Care Sales And Service Specialist Name Role Phone Adkins OD, Tom Unavailable Unavailable Advance Directives Directive Yes / No Effective Date File Name No Information Encounters Encounter Description Practice Location Reason(s) For Visit Diagnoses Date Provider Providers Copied on Encounter [facility], [address], [place], [place], [id number], [place] tel:[phone] [facility] No Information Dec-0 9-200 0 Adkins OD Tom. [address] , [address], [place], [address], [place]. tel:[phone] Family History Family Member Type Diagnosis Age [...]
--- NOTE | 2025-01-15 13:31 | ECHO_ITS ---
Patient Info Name: Bernabe Marx Age: 69 years : 1955 Gender: Male Ht: 72 in Wt: 280 lbs BSA: 2.59 m2 HR: 96 bpm BP: 140 / 70 mmHg Heart Rhythm: Sinus Rhythm Technical Quality: Fair Exam Date: 01/15/2025 1:41 PM Patient Status: O Admit Date: 01/15/2025 Exam Type: CA echo doppler color flow Complete two-dimensional, color flow and Doppler transthoracic echocardiogram is performed. Sand Screener: Karolyn See Attending Provider: Yesenia Kaufman Summary 1. Complete two-dimensional, color flow and Doppler transthoracic echocardiogram is performed. 2. Left ventricular chamber dimension is mildly enlarged. 3. Left ventricular systolic function is normal, estimated at 65-70. 4. The left ventricular diastolic function is grade I diastolic dysfunction. 5. E/e' 7 is not elevated. 6. Left atrial chamber dimension is moderately enlarged. 7. There is mild aortic valve sclerosis. 8. No pulmonary hypertension, estimated pulmonary arterial systolic pressure is 25 mmHg. 9. There is trace pulmonic regurgitation. Left Ventricle E/e' 7 is not elevated. Left ventricular chamber dimension is mildly enlarged. Left ventricular systolic function is normal, estimated at 65-70. The left ventricular diastolic function is grade I diastolic dysfunction. Right Ventricle Right ventricular chamber dimension is not well visualized. Right ventricular systolic function is normal based on normal TAPSE 2.7 cm. Left Atria Left atrial chamber dimension is moderately enlarged. Right Atria Right atrial chamber dimension is not well visualized. Aortic Valve The aortic valve is trileaflet. There is mild aortic valve sclerosis. There is no aortic valve stenosis. There is no aortic valve regurgitation. Pulmonic Valve There is trace pulmonic regurgitation. Mitral Valve There is no mitral valve stenosis. There is no mitral valve regurgitation. Tricuspid Valve There is no tricuspid valve regurgitation. No pulmonary hypertension, estimated pulmonary arterial systolic pressure is 25 mmHg. Pericardium/Pleural There is no pericardial effusion. Inferior Vena Cava Normal inferior vena cava with >50% collapse upon inspiration consistent with normal right atrial pressure, 5 mmHg. Aorta The aortic root size at the sinus of Valsalva is normal. Left Ventricular Outflow Tract Name Value Normal LVOT 2D LVOT Diameter 2.2 cm LVOT Doppler LVOT Peak Velocity 128 cm/s LVOT Peak Gradient 7 mmHg LVOT Mean Gradient 4 mmHg LVOT VTI 24 cm LVOT VTI/AV VTI Ratio 0.8 LVOT Stroke Volume 93 ml LVOT CO 7.8 l/min LVOT CI 3.0 l/min/m2 Pulmonic Valve Name Value Normal RVOT Doppler RVOT Peak Velocity 107 cm/s RVOT Peak Gradient 5 mmHg PV Doppler PV Peak Velocity 122 cm/s PV Peak Gradient 6 mmHg Mitral Valve Name Value Normal MV Diastolic Function MV E Peak Velocity 69 cm/s MV A Peak Velocity 91 cm/s MV E/A 0.8 MV Decel Time (PW) 186 ms MV Annular TDI MV E/e' (Septal) 8.8 MV E/e' (Lateral) 6.0 MV E/e' (Average) 7.4 Tricuspid Valve Name Value Normal TV Regurgitation Doppler TR Peak Velocity 223 cm/s TR Peak Gradient 20 mmHg Estimated PAP/RSVP RA Pressure 5 mmHg <=5 PA Systolic Pressure 25 mmHg <36 RV Systolic Pressure 25 mmHg <36 TV Annular TDI TV Lateral Seema s' Velocity 26.4 cm/s >=9.5 Aorta Name Value Normal Ascending Aorta Ao Root Diameter (MM) 3.2 cm Ao Root Diam Index (MM) 1.2 cm/m2 Aortic Valve Name Value Normal AV Doppler AV Peak Velocity 165 cm/s AV Peak Gradient 11 mmHg AV Mean Gradient 6 mmHg AV VTI 30 cm AV Area (Cont Eq VTI) 3.1 cm2 >=3.0 AV Area (Cont Eq Jose F) 2.9 cm2 AV DI (Jose F) 0.78 AV Regurgitation 2D LVOT Area 3.8 cm2 Ventricles Name Value Normal LV Dimensions 2D/MM IVS Diastolic Thickness (2D) 0.7 cm 0.6-1.0 LVID Diastole (2D) 5.9 cm 4.2-5.8 LVIW Diastolic Thickness (2D) 0.7 cm 0.6-1.0 LVID Systole (2D) 3.1 cm 2.5-4.0 LVOT Diameter 2.2 cm LV Mass (2D Cubed) 160.95 g 88.00-224.00 LV Mass Index (2D Cubed) 62 g/m2 49-115 Relative Wall Thickness (2D) 0.24 <=0.42 LV Fractional Shortening/Ejection Fraction 2D/MM LV Fractional Shortening (2D) 48 % 25-43 LV EF (2D Teichholz) 78 % LV Diastolic Volume (4C MOD) 156 ml LV EF (4C MOD) 73 % LV Diastolic Volume (2C MOD) 103 ml LV EF (2C MOD) 66 % LV Diastolic Volume (BP MOD) 129 ml 62-150 LV Diastolic Volume Index (BP MOD) 50 ml/m2 34-74 LV Systolic Volume (BP MOD) 39 ml 21-61 LV Systolic Volume Index (BP MOD) 15 ml/m2 11-31 LV EF (BP MOD) 70 % 52-72 LV Diastolic Length (4C) 8.7 cm LV Systolic Length (4C) 6.9 cm LV Stroke Volume (4C MOD) 114 ml Atria Name Value Normal LA Dimensions LA Dimension (MM) 5.3 cm 3.0-4.0 LA Volume (4C A-L) 74 ml LA Volume (BP A-L) 83 ml RA Dimensions RA Area (4C) 16.9 cm2 <=18.0 Report Signatures
--- OUTSIDE RECORDS SUMMARY | 2025-01-15 15:59 | XMS_ITS | Clinical Summary ---
Author Organization [facility] Address [address] [place] [address] Phone Care Team Providers Care Director Of Customer Acquisition Name Role Phone Augustine Willett MD Primary Care Provider Allergies No known active allergies Medications ELIQUIS [...] PCV) 2007 COVID-19 Vaccine (2 - season) 01/01/202501/2021 Influenza Vaccine (#1) 2025 02/02/2022, 2019 Insurance [facility] Care Teams Director Of Customer Acquisition Relationship Specialty Start Date End Date Augustine Willett MD [address] [facility] [address] [facility] 120 [place] [address] PCP - General Internal Medicine 01/15/20
--- OUTSIDE RECORDS SUMMARY | 2025-01-15 15:59 | XMS_ITS | Clinical Summary ---
Author Organization [facility] Address [address] [facility] [place] [address] Phone Care Team Providers Care Delicatessen Goods Stock Clerk Name Role Phone Augustine Willett MD Primary Care Provider [phone] Allergies No known active allergies Medications lisinopril [...] Comments Blood Pressure 142/76 07/10/2016 2:07 PM HEALTH CONCIERGE Pulse 84 07/10/2016 2:07 PM HEALTH CONCIERGE Temperature - - Respiratory Rate - - Oxygen Saturation - - Inhaled Oxygen Concentration - - Weight 148.3 kg (327 lb) 07/10/2016 2:07 PM HEALTH CONCIERGE Height 182.9 cm (6') 07/10/2016 2:07 PM HEALTH CONCIERGE Body Mass Index 44.35 07/10/2016 2:07 PM HEALTH CONCIERGE Plan of Treatment Health Maintenance Due Date [...] BS BLUE ACCESS/TRUE BLUE PPO Care Teams Delicatessen Goods Stock Clerk Relationship Specialty Start Date End Date Augustine Willett MD [address] [facility] 120 [place] [address] PCP - General Family Practice 07/10/16
--- OUTSIDE RECORDS SUMMARY | 2025-01-15 15:59 | XMS_ITS | Clinical Summary ---
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 120 [place] [address] PCP - General 04/19/09
--- OUTSIDE RECORDS SUMMARY | 2025-01-15 15:59 | XMS_ITS | Clinical Summary ---
Author Organization [facility] Address [address] [address] Phone Care Team Providers Care Charge Poster Name Role Phone Augustine Willett MD Primary [...] (1 of 2) 2007 PSA Discussion 2012 Colonoscopy 05/01/2024 05/01/2019 Colorectal Cancer Screening 05/01/2024 Influenza Immunization (#1) 2025 10/0 07/2021, 03/03/2020 SARS-COV-2 Immunization (2 - season) 2025 06/12/2020 Respiratory Syncytial Virus (RSV) Immunization (Adult) (1 [...] Most Recently Relevant to Health Maintenance Insurance [facility] MEDICARE Care Teams Charge Poster Relationship Specialty Start Date End Date Augustine Willett MD [address] [facility] [address] [place] [address] PCP - General Family Medicine 05/10/19
== END 2025-01-15 13:27 | disposition home or self-care (01) ==
LOC: ANHCARD 13:27
PROVIDERS: PCP Family Medicine; Visit Provider Physician Assistant Medical
DX: R06.02 Shortness of breath (principal); R60.0 Localized edema; I35.0 Nonrheumatic aortic (valve) stenosis
CPT/HCPCS: 93306

== ENCOUNTER 2025-01-25 12:06 | Outpatient (CLI) | payer MEDICARE, OTHER, SELFPAY ==
--- OUTSIDE RECORDS SUMMARY | 2000-04-10 06:15 | XMS_ITS | Continuity of Care Document ---
Author Organization [facility] Address [address] [place] [address] Phone Care Team Providers Care Supervisor Dry Cell Assembly Name Role Phone Adkins OD, Tom Unavailable Unavailable Advance Directives Directive Yes / No Effective Date File Name No Information Encounters Encounter Description Practice Location Reason(s) For Visit Diagnoses Date Provider Providers Copied on Encounter [facility], [address], [place], [place], [id number], [place] tel:[phone] [facility] No Information Dec-0 9-200 0 Adkins OD Tom. [address] , [address], [place], [address], [place]. tel:[phone] Family History Family Member Type Diagnosis Age At Onset No Information Payers Payer name Insurance type Covered libertarian ID Authoriza tion(s) No Information Social History [...]
--- NOTE | ~2025-01-25 | XR_ITS ---
EXAMINATION: XR chest 2V, 01/25/2025 12:20 CDT HISTORY: R06.02 - Shortness of breath COMPARISON: No comparisons available. Technique: 2 views obtained. Findings: The lungs are clear, no effusion. No pneumothorax. Heart is normal size. Mediastinal and hilar contours are within normal limits. Bony thorax no acute abnormality. Impression: No acute cardiopulmonary abnormality. Reviewed, dictated and finalized at location P. Impression: No acute cardiopulmonary abnormality.
[2025-01-25 13:03] LABS: Add Urine Microscopic? YES; Appearance Urine Turbid (Clear); Budding Yeast Urine Present /hpf; Glucose Urine UA 3+ mg/dL (Negative); Leukocyte Esterase Ur 2+ LEU/UL (Negative); Need Manual Microscopic Reviewed; Nitrate Urine Negative (Negative); Non Pathogenic Casts 0-2; Specific Grav Ur 1.037 (1.001-1.035)
--- OUTSIDE RECORDS SUMMARY | 2025-01-25 14:36 | XMS_ITS | Clinical Summary ---
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
--- OUTSIDE RECORDS SUMMARY | 2025-01-25 14:36 | XMS_ITS | Clinical Summary ---
Author Organization [facility] Address [address] [address] Phone Care Team Providers Care Shotgun Shell Loading Machine Operator Name Role Phone Augustine Willett [...] Most Recently Relevant to Health Maintenance Insurance [facility] MEDICARE Care Teams Shotgun Shell Loading Machine Operator Relationship Specialty Start Date End Date Augustine Willett MD [address] [facility] [address] [place] [address] PCP - General Family Medicine 05/10/19
--- OUTSIDE RECORDS SUMMARY | 2025-01-25 14:36 | XMS_ITS | Clinical Summary ---
Author Organization [facility] Address [address] [facility] [place] [place] [address] Phone Care Team Providers Care Peoplesoft Name Role Phone Augustine Willett MD Primary Care Provider [phone] Allergies No known active allergies Medications lisinopril [...] Comments Blood Pressure 142/76 07/10/2016 2:07 PM ACCOUNT EXECUTIVE SOFTWARE SALES Pulse 84 07/10/2016 2:07 PM ACCOUNT EXECUTIVE SOFTWARE SALES Temperature - - Respiratory Rate - - Oxygen Saturation - - Inhaled Oxygen Concentration - - Weight 148.3 kg (327 lb) 07/10/2016 2:07 PM ACCOUNT EXECUTIVE SOFTWARE SALES Height 182.9 cm (6') 07/10/2016 2:07 PM ACCOUNT EXECUTIVE SOFTWARE SALES Body Mass Index 44.35 07/10/2016 2:07 PM ACCOUNT EXECUTIVE SOFTWARE SALES Plan of Treatment Health Maintenance Due Date [...] BS BLUE ACCESS/TRUE BLUE PPO Care Teams Peoplesoft Relationship Specialty Start Date End Date Augustine Willett MD [address] [facility] 120 [place] [address] PCP - General Family Practice 07/10/16
--- OUTSIDE RECORDS SUMMARY | 2025-01-25 14:36 | XMS_ITS | Clinical Summary ---
Author Organization [facility] Address [address] [place] [address] Phone Care Team Providers Care Regional Retail Sales Manager Name Role Phone Augustine Willett MD Primary Care Provider [phone] Allergies No known active allergies Medications ELIQUIS [...] Vaccine (#1) 2025 02/02/2022, 2019 Insurance [facility] Care Teams Regional Retail Sales Manager Relationship Specialty Start Date End Date Augustine Willett MD [address] [facility] [address] [facility] 120 [place] [address] PCP - General Internal Medicine 01/15/20
== END 2025-01-25 12:07 | disposition home or self-care (01) ==
PROVIDERS: PCP Family Medicine; Visit Provider Physician Assistant Medical
DX: R06.02 Shortness of breath (principal); M54.50 Low back pain, unspecified; R35.0 Frequency of micturition
CPT/HCPCS: 71046; 81001; 87086

== ENCOUNTER 2025-02-20 09:10 | Outpatient (CLI) | payer MEDICARE, OTHER, SELFPAY ==
--- NOTE | ~2025-02-20 | NM_ITS ---
EXAMINATION: NM louis stress w perfusion DATE: 02/20/2025 11:45 INDICATION: Shortness of breath. TECHNIQUE: Rest images were obtained following intravenous administration of 10.3 mCi Tc99m tetrofosmin (Myoview). The patient was infused intravenously with Lexiscan (Regadenoson). Then, 31.8 mCi Tc99m tetrofosmin (Myoview) was administered intravenously, and stress images were obtained. Data was jimi nstructed into short axis and horizontal and vertical long axis SPECT images. Gated SPECT images were also obtained. COMPARISON: None. FINDINGS: There is a small moderate severity fixed perfusion defect at the mid inferolateral segment consistent with infarct. There is mild reversible perfusion defect involving the apical anterior, apical lateral and basilar inferolateral segments consistent with ischemia. There is normal left ventric ular chamber size, wall motion and ejection fraction. Left ventricular ejection fraction measures 67%. IMPRESSION: 1. Small mild nonreversible infarct at the mid inferolateral segment. 2. Small regions of mild reversible ischemia at the apical anterior, apical lateral and basilar inferolateral segments. 3. Left ventricular ejection fraction measuring 67%. Reviewed, dictated and finalized at location A. IMPRESSION: 1. Small mild nonreversible infarct at the mid inferolateral segment. 2. Small regions of mild reversible ischemia at the apical anterior, apical lat eral and basilar inferolateral segments. 3. Left ventricular ejection fraction measuring 67%.
--- NOTE | 2025-02-20 09:15 | EST_ITS ---
Patient Info Name: Bernabe Marx Age: 69 years : 1955 Gender: Male Ht: 72 in Wt: 271 lbs BSA: 2.54 m2 HR: 81 bpm BP: 132 / 63 mmHg Exam Date: 02/20/2025 9:15 AM Patient Status: O Admit Date: 02/20/2025 Exam Type: CA stress louis w NM A regadenoson stress test was performed. Staff Referring Physician: Yesenia Kaufman Attending Provider: Yesenia Kaufman Exercise Technologist: Karolyn See Exercise Physician: Jaspal Mckenna DO Summary 1. 1. Negative lexiscan stress test for ischemic ST changes by ECG criteria. 2. 2. Stable hemodynamics throughout the test. 3. 3. Nuclear scan to follow and will be reported separately. Please correlate with it. 4. 4. Patient informed of the above results. Protocol: Lexiscan Stress ECG Details Stage: REST Duration (min): 1 min : 2 sec HR (bpm): 82 SBP (mmHg): 132 DBP (mmHg): 63 Stage: REST Duration (min): 7 min : 41 sec HR (bpm): 81 SBP (mmHg): 132 DBP (mmHg): 63 Stage: STAGE 1 Duration (min): 1 min : 0 sec HR (bpm): 98 SBP (mmHg): 144 DBP (mmHg): 67 Stage: RECOVERY Duration (min): 1 min : 0 sec HR (bpm): 97 SBP (mmHg): 144 DBP (mmHg): 67 Stage: RECOVERY Duration (min): 2 min : 0 sec HR (bpm): 94 SBP (mmHg): 144 DBP (mmHg): 67 Stage: RECOVERY Duration (min): 3 min : 0 sec HR (bpm): 93 SBP (mmHg): 123 DBP (mmHg): 63 Stage: RECOVERY Duration (min): 3 min : 4 sec HR (bpm): 92 SBP (mmHg): 123 DBP (mmHg): 63 Rest HR: 81 bpm Peak HR: 99 bpm Rest Sys BP: 132 mmHg Peak Sys BP: 144 mmHg Max Pred HR: 153 bpm % Max Pred HR: 65 % Target HR: 130 bpm Max RPP: 14,256 bpm*mmHg Termination Reason: Completed protocol Cardiac Symptoms: Shortness of breath Total Time: 1 min : 0 sec Rest Lanier BP: 63 mmHg Peak Lanier BP: 67 mmHg Total Dose: 0.4 mg Resting ECG Sinus rhythm. Stress ECG No ST changes. Arrhythmias None. Report Signatures
--- OUTSIDE RECORDS SUMMARY | 2025-02-20 10:16 | XMS_ITS | Clinical Summary ---
Author Organization [facility] Address [address] [address] Phone Care Team Providers Care Java Project Manager Name Role Phone Augustine Willett MD [...] Most Recently Relevant to Health Maintenance Insurance [facility] MEDICARE Care Teams Java Project Manager Relationship Specialty Start Date End Date Augustine Willett MD [address] [facility] [address] [place] [address] PCP - General Family Medicine 05/10/19
--- OUTSIDE RECORDS SUMMARY | 2025-02-20 10:16 | XMS_ITS | Clinical Summary ---
Author Organization [facility] Address [address] [facility] [place] [address] Phone Care Team Providers Care Leather Stretcher Name Role Phone Augustine Willett MD Primary Care Provider [phone] Allergies No known active allergies Medications lisinopril [...] Comments Blood Pressure 142/76 07/10/2016 2:07 PM EVENT MARKETING REPRESENTATIVE Pulse 84 07/10/2016 2:07 PM EVENT MARKETING REPRESENTATIVE Temperature - - Respiratory Rate - - Oxygen Saturation - - Inhaled Oxygen Concentration - - Weight 148.3 kg (327 lb) 07/10/2016 2:07 PM EVENT MARKETING REPRESENTATIVE Height 182.9 cm (6') 07/10/2016 2:07 PM EVENT MARKETING REPRESENTATIVE Body Mass Index 44.35 07/10/2016 2:07 PM EVENT MARKETING REPRESENTATIVE Plan of Treatment Health Maintenance Due Date [...] Flex Sig/CT Colonography Q 5 years 2002 RSV VACCINE (60+ or ) (1 - Risk 50-74 years 1-dose series) 2007 ZOSTER VACCINE (1 of 2) 2007 INFLUENZA VACCINE (#1) 2024 Insurance [employer] BLUE ACCESS/TRUE BLUE PPO Care Teams Leather Stretcher Relationship Specialty Start Date End Date Augustine Willett MD [address] [facility] 120 [place] [address] PCP - General Family Practice 07/10/16
--- OUTSIDE RECORDS SUMMARY | 2025-02-20 10:16 | XMS_ITS | Clinical Summary ---
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
--- OUTSIDE RECORDS SUMMARY | 2025-02-20 10:16 | XMS_ITS | Clinical Summary ---
Author Organization [facility] Address [address] [place] [address] Phone Care Team Providers Care Outsole Rounder Name Role Phone Augustine Willett MD Primary Care Provider [phone] Allergies No known active allergies Medications ELIQUIS [...] Influenza Vaccine (#1) 2025 02/02/2022, 2019 Insurance [facility] Care Teams Outsole Rounder Relationship Specialty Start Date End Date Augustine Willett MD [address] [facility] [address] [facility] 120 [place] [address] PCP - General Internal Medicine 01/15/20
== END 2025-02-20 09:11 | disposition home or self-care (01) ==
PROVIDERS: PCP Family Medicine; Visit Provider Physician Assistant Medical
DX: I21.19 ST elevation (STEMI) myocardial infarction involving other coronary artery of inferior wall (principal); I50.20 Unspecified systolic (congestive) heart failure
CPT/HCPCS: 78452; 93017; A9502; J2785

== ENCOUNTER 2025-02-23 10:21 | Outpatient (CLI) | payer MEDICARE, OTHER, SELFPAY ==
--- NOTE | ~2025-02-23 | US_ITS ---
EXAMINATION: US renal BI DATE: 02/23/2025 11:25 INDICATION: Urogenital candidiasis TECHNIQUE: Multiple ultrasound grayscale images of the kidneys were obtained. COMPARISON: None. FINDINGS: The right kidney measures 13.8 x 5.9 x 6.6 cm. The left kidney measures 14.3 x 6.6 x 5.8 cm. The kidneys demonstrate normal echogenicity. 1.2 cm exophytic anechoic cyst at the lower pole of the right kidney There is no hydronephrosis in either kidney. No stones identified. The bladder is normal with bilateral ureteral jets visualized on color Doppler. IMPRESSION: 1. 1.2 cm exophytic cyst at the lower pole the right kidney. Otherwise normal kidneys without hydronephrosis. Reviewed, dictated and finalized at location A.
--- OUTSIDE RECORDS SUMMARY | 2025-02-23 10:43 | XMS_ITS | Clinical Summary ---
Author Organization [facility] Address [address] [facility] [place] [address] Phone Care Team Providers Care Length Control Tester Name Role Phone Augustine Willett MD Primary Care Provider [phone] Allergies No known active allergies Medications lisinopril [...] Comments Blood Pressure 142/76 07/10/2016 2:07 PM ASSISTANT NURSE MANAGER Pulse 84 07/10/2016 2:07 PM ASSISTANT NURSE MANAGER Temperature - - Respiratory Rate - - Oxygen Saturation - - Inhaled Oxygen Concentration - - Weight 148.3 kg (327 lb) 07/10/2016 2:07 PM ASSISTANT NURSE MANAGER Height 182.9 cm (6') 07/10/2016 2:07 PM ASSISTANT NURSE MANAGER Body Mass Index 44.35 07/10/2016 2:07 PM ASSISTANT NURSE MANAGER Plan of Treatment Health Maintenance Due Date [...] BCBS BLUE ACCESS/TRUE BLUE PPO Care Teams Length Control Tester Relationship Specialty Start Date End Date Augustine Willett MD [address] [facility] 120 [place] [address] PCP - General Family Practice 07/10/16
--- OUTSIDE RECORDS SUMMARY | 2025-02-23 10:43 | XMS_ITS | Clinical Summary ---
Author Organization [facility] Address [address] [address] Phone Care Team Providers Care Automotive Mechanical Engineer Name Role Phone Augustine Willett MD [...] Recently Relevant to Health Maintenance Insurance [facility] MEDICARE Care Teams Automotive Mechanical Engineer Relationship Specialty Start Date End Date Augustine Willett MD [address] [facility] [address] [place] [address] PCP - General Family Medicine 05/10/19
--- OUTSIDE RECORDS SUMMARY | 2025-02-23 10:43 | XMS_ITS | Clinical Summary ---
Author Organization [facility] Address [address] [place] [address] Phone Care Team Providers Care Bung Dropper Name Role Phone Augustine Willett MD Primary Care Provider [phone] Allergies No known active allergies Medications ELIQUIS [...] 2025 02/02/2022, 2019 Insurance [employer] Care Teams Bung Dropper Relationship Specialty Start Date End Date Augustine Willett MD [address] [facility] 162 [facility] 120 [place] [address] PCP - General Internal Medicine 01/15/20
--- OUTSIDE RECORDS SUMMARY | 2025-02-23 10:43 | XMS_ITS | Clinical Summary ---
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
== END 2025-02-23 10:22 | disposition home or self-care (01) ==
PROVIDERS: PCP Family Medicine; Visit Provider Physician Assistant Medical
DX: N28.1 Cyst of kidney, acquired (principal); B37.49 Other urogenital candidiasis
CPT/HCPCS: 76770

== ENCOUNTER 2025-03-12 21:12 | Inpatient (IN) | payer MEDICARE, OTHER, SELFPAY ==
--- OUTSIDE RECORDS SUMMARY | 2000-04-10 05:15 | XMS_ITS | Continuity of Care Document ---
Author Organization [facility] Address [address] [place] [address] Phone Care Team Providers Care Final Inspector Motorcyles Name Role Phone Adkins OD, Tom Unavailable Unavailable Advance Directives Directive Yes / No Effective Date File Name No Information Encounters Encounter Description Practice Location Reason(s) For Visit Diagnoses Date Provider Providers Copied on Encounter [facility], [address], [place], [place], [id number], [place] tel:[phone] [facility] No Information Dec-0 9-200 0 Adkins OD Tom. [address] , [address], [place], [address], [place]. tel:[phone] Family History Family Member Type Diagnosis Age At Onset No Information Payers Payer name Insurance type Covered green party ID Authoriza tion(s) No Information Social History Type Description Quantity Date Captured Comments Sex Male Smoking Status No Information Chief Complaint And Reason For Visit No Information Reason For Referral Reason For Referral No Information History Of Present Illness Encounter Date Complaint History Of Prese nt Illness No Information Functional Status Date Functional Assessmen t No Information Instructions Date Instruction Additional Infor mation No Information Assessments Type Assessment Date No Information Patient Care Teams Name Effective Dates (start - stop) Status Members No Information
--- OUTSIDE RECORDS SUMMARY | 2000-04-10 05:15 | XMS_ITS | Continuity of Care Document ---
Author Organization [facility] Address [address] [place] [address] Phone Care Team Providers Care Service Electrician Name Role Phone Adkins OD, Tom Unavailable Unavailable Advance Directives Directive Yes / No Effective Date File Name No Information Encounters Encounter Description Practice Location Reason(s) For Visit Diagnoses Date Provider Providers Copied on Encounter [facility], [address], [place], [place], [id number], [place] tel:[phone] [facility] No Information Dec-0 9-200 0 Adkins OD Tom. [address] , [address], [place], [address], [place]. tel:[phone] Family History Family Member Type Diagnosis Age [...]
--- NOTE | ~2025-03-12 | US_ITS ---
EXAMINATION: US arterial ankle brachial ind DATE: 03/19/2025 14:33 INDICATION: Peripheral vascular disease TECHNIQUE: Segmental pressures and plethysmographic and Doppler waveforms of the brachial and lower extremity arteries were obtained. COMPARISON: None. FINDINGS: Right and left brachial artery pressures of 140 mm Hg and 142 mm Hg, respectively, are concordant (normal difference <= 30 mmHg). The right ankle-brachial index (MICHAEL) is unable be obtained due to inability to occlude the arteries at the right ankle (normal >= 0.9-1.0). The right great toe-brachial index (TBI) is 0.94 (normal >= 0.65). Arterial Doppler waveforms demonstrate brisk systolic upstrokes at both right posterior tibial and dorsalis pedis arteries. The left MICHAEL is 1.32. The left TBI is 0.91. Arterial Doppler waveforms are biphasic with with brisk systolic upstrokes at both left posterior tibial and dorsalis pedis arteries. IMPRESSION: 1. No significant arterial occlusive disease to either lower limb with normal bilateral TBIs. Reviewed, dictated and finalized at location A. OR PROCUREMENT SPECIALIST IMPRESSION: 1. No significant arterial occlusive disease to either lower limb with normal b ilateral TBIs.
--- NOTE | ~2025-03-12 | MR_ITS ---
EXAMINATION: MRI lumbar spine with and without contrast: DATE: 03/20/2025 INDICATION: Follow-up of abnormal CT findings suggestive of discitis with osteomyelitis at L1-2 level. No history of spine surgery. TECHNIQUE: Axial, coronal and sagittal views including postcontrast study with IV contrast were obtained. COMPARISON: CT lumbar spine obtained on 03/20/2025. FINDINGS: Significant irregularity of L1-2 disc with retrolisthesis. Irregularity and erosive changes of endplate of lower L1 and upper L2 vertebral bodies with bone marrow edema and postcontrast enhancement confirm the findings on CT scan suggesting acute discitis at L1-2 level with osteomyelitis involving L1 and L2. Significant compromise of thecal sac due to the inflammatory changes at L1-2 level. AP diameter of the thecal sac in the midline measures 6.7 mm. Paraspinal inflammatory changes and enhancement at this level due to discitis. Small cystic spaces are seen in the paravertebral muscles at the L1-2 level suggestive of microabscesses. At L2-3 level, degenerative disc changes in facet arthropathy causes mild compromise of both lateral recesses. At L3-4 level, degenerative disc disease and facet arthropathy are causing moderately significant compromise of both neuroforamina. At L4-5 level, degenerative disc disease and facet arthropathy are causing moderate to significant bilateral foraminal narrowing. L5-S1 disc shows no focal abnormalities. IMPRESSION: 1. Evidence of acute discitis at L1-2 level with osteomyelitis involving L1 and L2 vertebral bodies.Para Vertebral inflammatory changes with microabscesses on both sides. 2. Significant narrowing of the thecal sac at L1-2 level as described above. 3. Findings at other disc levels are described above in detail. Reviewed, dictated and finalized at location T. [facility]
--- NOTE | ~2025-03-12 | XR_ITS ---
XR elbow RT min 3V 03/13/2025 00:27 Indication: Right elbow pain Procedure: 3 views right elbow Comparison: No prior studies for comparison. Findings: No fracture, subluxation or dislocation. No significant joint effusion. No foreign bodies. Prominent degenerative enthesophyte at the olecranon process. Impression: 1: No acute bone or joint abnormality. Reviewed, dictated and finalized at location B. IFIED COMPOSITES TECHNICIAN Impression: 1: No acute bone or joint abnormality.
--- NOTE | ~2025-03-12 | XR_ITS ---
XR skull <4V Indication: MRI clearance/wires in ears Comparison: None Technique: 3 view. Findings: No acute fracture or malalignment. No significant degenerative changes. Soft tissues no metallic radiopaque foreign bodies are identified. Impression: No acute fracture or malalignment. Reviewed, dictated and finalized at location P. ING TABLE WORKER Impression: No acute fracture or malalignment.
--- NOTE | ~2025-03-12 | CT_ITS ---
EXAM/PROCEDURE: CT lumbar spine w con HISTORY: back pain; evaluate for spondylodiscitis, etc COMPARISON: Sagittal CT images from August 14, 2021. TECHNIQUE: Lumbar spine CT FINDINGS: Erosive changes at the L1-2 interspace have developed with widening of the disc space, and somewhat fragmented appearance of both the inferior endplate of L1 and superior endplate L2. There is approximately 3 mm of retrograde displacement of the superior posterior fragment involving the superior endplate of L2. This appears to be associated with cecal and/or epidural thickening/complex fluid loculation is seen on image 49 series 4. There is probably at least moderately severe spinal canal stenosis at this level. Moderately severe diffuse air spinal soft tissue fullness is also present beginning at T12 and extending caudally down through the L2-3 interspace. Small fluid accumulation is appear to be developing in the paraspinal region; see the left side on images 48 through 50 series 4. The remainder of the bones appear stable. IMPRESSION: Aggressive process at the L1-2 interspace likely involving discitis, osteomyelitis of both vertebral bodies, and paraspinal phlegmon/developing abscess with possible epidural involvement as well. Correlation with contrast- enhanced lumbar spine MRI suggested. Reviewed, dictated and finalized at location A. HER LEVELER IMPRESSION: Aggressive process at the L1-2 interspace likely involving discitis, osteomyeli tis of both vertebral bodies, and paraspinal phlegmon/developing abscess with p ossible epidural involvement as well. Correlation with contrast-enhanced lumbar spine MRI suggested.
--- NOTE | ~2025-03-12 | XR_ITS ---
XR lumbar spine 2-3V INDICATION: Low back pain COMPARISON: None. TECHNIQUE: AP and lateral views of the lumbar spine as well as coned-down views of L5-S1 were obtained. FINDINGS: There is no compression fracture or malalignment. No significant degenerative disc changes are present. No soft tissue abnormalities are identified. IMPRESSION: Normal lumbar spine. Reviewed, dictated and finalized at location S. ETES SPECIALIST IMPRESSION: Normal lumbar spine.
--- NOTE | ~2025-03-12 | XR_ITS ---
XR tibia fibula LT 2V 03/13/2025 03:48 Indication: Lateral leg wound. Procedure: 2 views left tibia/fibula Comparison: Left knee series dated 11/09/2024 Findings: There is polyarticular osteoarthritis of the knee and ankle. There is ossification along the course of the Achilles tendon, likely related to remote injury. There is atherosclerosis. Moderate osteoarthritis of the midfoot. No fracture, subluxation or dislocation. Moderate subcutaneous edema laterally. No foreign bodies. Impression: 1: Mild-moderate polyarticular osteoarthritis. Reviewed, dictated and finalized at location B. NING SPECIALIST Impression: 1: Mild-moderate polyarticular osteoarthritis.
--- NOTE | ~2025-03-12 | CT_ITS ---
EXAMINATION: CT lumbar spine with contrast: DATE: 03/27/2025. INDICATION: Lumbar abscess. Finding of L1-2 discitis and osteomyelitis of L1 and L2 on MRI. TECHNIQUE: CT lumbar spine was performed with 100 cc of Omnipaque 350 and multiplanar reconstruction were obtained. Radiation dose 1424 MG Y C.M. COMPARISON: MRI lumbar spine 03/20/2025. CT lumbar spine dated 03/20/2025. FINDINGS: Progressive destructive process of the L1-L2 discitis is noted compared with 03/20/2025. Pathological fracture of upper endplate of L2 vertebral body is noted again. Retropulsion of the upper posterior margin of L2 due to the discitis and the pathological fracture along with the disc changes are causing significant compromise of thecal sac at upper L2 level, similar to prior imaging studies. Paraspinal soft tissue inflammation at L1-2 level is similar in appearance to prior study. No well-circumscribed abscess. Findings at other disc levels are unchanged. IMPRESSION: 1. Destructive process of discitis at L1-2 level is noted with involvement of lower endplate of L1 and upper endplate of L2 vertebrae. Pathological fracture of upper endplate of L2 vertebra. These findings are more progressive compared with the CT findings on 03/20/2025. 2. Narrowing of thecal sac at upper L2 level as described above. 3. Paravertebral soft tissue inflammation at L1-L2 levels similar to prior study. Reviewed, dictated and finalized at location T. ING MACHINE OPERATOR IMPRESSION: 1. Destructive process of discitis at L1-2 level is noted with involvement of l ower endplate of L1 and upper endplate of L2 vertebrae. Pathological fracture o f upper endplate of L2 vertebra. These findings are more progressive compared w ith the CT findings on 03/20/2025. 2. Narrowing of thecal sac at upper L2 level as described above. 3. Paravertebral soft tissue inflammation at L1-L2 levels similar to prior stud y.
--- NOTE | ~2025-03-12 | XR_ITS ---
EXAMINATION: XR chest 1V portable 03/13/2025 03:48 INDICATION: Shortness of breath PROCEDURE: AP portable chest COMPARISON: Comparison to multiple prior studies sequentially, with oldest reviewed study dated 12/15/2015. FINDINGS: The lungs are clear. The cardiomediastinal silhouette is within normal limits. There are no pleural effusions. There is no pneumothorax suspected. There are cholecystectomy clips. IMPRESSION: 1: NO ACUTE CARDIOPULMONARY DISEASE. Reviewed, dictated and finalized at location B. ESTRUCTIVE TESTER
[2025-03-12 21:14] VITALS: BP 147/68; PULSE 130; RESP 19; TEMP 37.6; O2SAT 100
--- OUTSIDE RECORDS SUMMARY | 2025-03-12 21:14 | XMS_ITS | Clinical Summary ---
Author Organization [facility] Address [address] [place] [address] Phone Care Team Providers Care Md Pediatric Allergist Name Role Phone Augustine Willett MD Primary Care Provider [phone] Allergies No known active allergies Medications ELIQUIS [...] Influenza Vaccine (#1) 2025 02/02/2022, 2019 Insurance [facility] Care Teams Md Pediatric Allergist Relationship Specialty Start Date End Date Augustine Willett MD [address] [facility] 162 [facility] 120 [place] [address] PCP - General Internal Medicine 01/15/20
--- OUTSIDE RECORDS SUMMARY | 2025-03-12 21:15 | XMS_ITS | Clinical Summary ---
Author Organization [facility] Address [address] [facility] [place] [address] Phone Care Team Providers Care Dental Biller Name Role Phone Augustine Willett MD Primary Care Provider [phone] Allergies No known active allergies Medications lisinopril [...] Comments Blood Pressure 142/76 07/10/2016 2:07 PM MUNITIONS HANDLER Pulse 84 07/10/2016 2:07 PM MUNITIONS HANDLER Temperature - - Respiratory Rate - - Oxygen Saturation - - Inhaled Oxygen Concentration - - Weight 148.3 kg (327 lb) 07/10/2016 2:07 PM MUNITIONS HANDLER Height 182.9 cm (6') 07/10/2016 2:07 PM MUNITIONS HANDLER Body Mass Index 44.35 07/10/2016 2:07 PM MUNITIONS HANDLER Plan of Treatment Health Maintenance Due Date [...] BCBS BLUE ACCESS/TRUE BLUE PPO Care Teams Dental Biller Relationship Specialty Start Date End Date Augustine Willett MD [address] [facility] 120 [place] [address] PCP - General Family Practice 07/10/16
--- OUTSIDE RECORDS SUMMARY | 2025-03-12 21:15 | XMS_ITS | Clinical Summary ---
Author Organization [facility] Address [address], [address] [address] Phone Care Team Providers Care Sales Representative Electric Service Name Role Phone Augustine Willett MD Primary [...] (1 of 2) 2007 PSA Discussion 2012 Medicare Initial AWV [id number] 03/03/2024 Colonoscopy 05/01/2024 05/01/2019 Colorectal Cancer Screening 05/01/2024 Influenza Immunization (#1) 01/01/202507/2021, 03/03/2020 SARS-COV-2 Immunization (2 - season) 2025 [...] Recently Relevant to Health Maintenance Insurance [facility] MEDICARE Care Teams Sales Representative Electric Service Relationship Specialty Start Date End Date Augustine Willett MD [address] [place] [address] PCP - General Family Medicine 05/10/19
--- OUTSIDE RECORDS SUMMARY | 2025-03-12 21:15 | XMS_ITS | Clinical Summary ---
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
[2025-03-13] VITALS (18 sets, daily range): BP systolic 107–142; BP diastolic 43–68; PULSE 89–119; RESP 15–28; TEMP 36.7–37.6; O2SAT 90–99; BMI 37.2
--- NOTE | 2025-03-13 | ECG_ITS ---
Test Date: 2025-03-13 00:56:29 Measurements Intervals [place] Rate: 115 P: 14 VA: 160 QRS: 16 QRSD: 102 T: 21 QT: 349 QTc: 483 Interpretive Statements SINUS TACHYCARDIA NONSPECIFIC ST & T-WAVE ABNORMALITY ABNORMAL RHYTHM ECG Electronically Signed On 03-13-2025 17:53:41 SENIOR RISK MANAGER by Jozef Wood M.D.
--- OUTSIDE RECORDS SUMMARY | 2025-03-13 00:28 | XMS_ITS | Clinical Summary ---
Author Organization [facility] Address [address] [place] [address] Phone Care Team Providers Care Skip Tender Name Role Phone Augustine Willett MD Primary Care Provider [phone] Allergies No known active allergies Medications ELIQUIS [...] Influenza Vaccine (#1) 2025 02/02/2022, 2019 Insurance [facility] Care Teams Skip Tender Relationship Specialty Start Date End Date Augustine Willett MD [address] [facility] 162 [facility] 120 [place] [address] PCP - General Internal Medicine 01/15/20
--- OUTSIDE RECORDS SUMMARY | 2025-03-13 00:30 | XMS_ITS | Clinical Summary ---
Author Organization [facility] Address [address] [facility] [place] [address] Phone Care Team Providers Care Renal Dialysis Technician Name Role Phone Augustine Willett MD Primary Care Provider [phone] Allergies No known active allergies Medications lisinopril [...] Comments Blood Pressure 142/76 07/10/2016 2:07 PM PLATFORM ARCHITECT Pulse 84 07/10/2016 2:07 PM PLATFORM ARCHITECT Temperature - - Respiratory Rate - - Oxygen Saturation - - Inhaled Oxygen Concentration - - Weight 148.3 kg (327 lb) 07/10/2016 2:07 PM PLATFORM ARCHITECT Height 182.9 cm (6') 07/10/2016 2:07 PM PLATFORM ARCHITECT Body Mass Index 44.35 07/10/2016 2:07 PM PLATFORM ARCHITECT Plan of Treatment Health Maintenance Due Date [...] BCBS BLUE ACCESS/TRUE BLUE PPO Care Teams Renal Dialysis Technician Relationship Specialty Start Date End Date Augustine Willett MD [address] [facility] 120 [place] [address] PCP - General Family Practice 07/10/16
--- OUTSIDE RECORDS SUMMARY | 2025-03-13 00:30 | XMS_ITS | Clinical Summary ---
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
--- OUTSIDE RECORDS SUMMARY | 2025-03-13 00:30 | XMS_ITS | Clinical Summary ---
Author Organization [facility] Address [address], [address] [address] Phone Care Team Providers Care Plush Dresser Name Role Phone Augustine Willett MD Primary [...] [facility] MEDICARE Care Teams Plush Dresser Relationship Specialty Start Date End Date Augustine Willett MD [address] [place] [address] PCP - General Family Medicine 05/10/19
--- NOTE | 2025-03-13 00:42 | ED_ITS ---
HPI - Fall General Chief Complaint: Fall Stated Complaint: GLF Time Seen by Provider: 03/13/25 00:17 Source: patient and family Mode of arrival: wheelchair Limitations: no limitations History of Present Illness HPI Narrative: This is a 69-year-old male with history of diabetes, hypertension hyperlipidemia, PVD, PEs on Eliquis, chronic wound to left lower leg who presents the ED for a fall. Patient states that he was trying to transfer from his chair to walker when he missed the walker and fell onto his right side hurting his right elbow. Denies hitting his head, lost consciousness. Family at bedside states that he has had increasing falls for the past several weeks. They are having a hard time taking care for him and apparently takes a couple hours to bathe him due to his weakness. Patient is already in outpatient therapy but patient and family think that he would be better off with rehab facility placement. Denies chest pain, shortness of breath, nausea, vomiting, abdominal pain. Related Data Allergies Allergy/AdvReac Type Severity Reaction Status Date / Time No Known Allergies Allergy Verified 02/12/25 13:07 Review of Systems 2 Review of Systems: Gen.: Denies fevers or chills Eyes: Denies eye pain or visual change ENT: Denies congestion Respiratory: Denies shortness of breath or cough CV: Denies chest pain or palpitations GI: Denies abdominal pain nausea, emesis or diarrhea denies burning, urgency, frequency or hematuria Musculoskeletal: Denies back pain or muscle pain Neuro: Denies numbness, tingling, weakness or focal weakness Skin: Denies rash Except as documented, all other systems reviewed and negative [facility] Past Medical History Medical History Rhinosinusitis Peripheral vascular disease Hx of adenomatous colonic polyps Hematuria MTHFR gene mutation Stasis dermatitis Personal history of pulmonary embolism Pure hypercholesterolemia, unspecified Essential (primary) hypertension Surgical History Surgical History Status post endovenous radiofrequency ablation (RFA) of saphenous vein Hx of cholecystectomy Hx of colonoscopy Family History Family History Mother Family history of malignant neoplasm multiple myeloma Father Family history of diabetes mellitus in first degree relative Family history of type 2 diabetes mellitus Skin cancer Social History Social History Social History: Second hand tobacco smoke exposure: No Alcohol intake: never Substance use: never Substance use type: does not use Lack of Transportation: No Lack of Food: Never True Current Housing: I Have Housing Concerned About Future Housing: No Difficulty Paying Gas/Electric Bills: No Difficulty Paying for Meds: No Currently Unemployed: No Education: Bachelor's Degree Living arrangements: with family Additional living arrangements comments: with sp Occupation/Education: occupation Gender identity (if verbalized by the patient): Male Sexual Orientation (if Verbalized by the Patient): Straight or Heterosexual Exam 2 Narrative: APPEARANCE: No acute distress, nontoxic, resting in bed EYES: EOMI HEENT: Normocephalic, atraumatic, OMM RESPIRATORY: No respiratory distress Clear to auscultation bilaterally with no rhonchi wheezing or rales. CARDIOVASCULAR: Tachycardic with regular rhythm without murmurs rubs or gallops. ABDOMINAL: Obese. Soft, nontender, nondistended, no rebound or guarding MUSCULOSKELETAl: Moves all extremities. No clubbing, cyanosis or edema. NEURO: Awake and alert. Following commands, speech normal, no focal deficits SKIN:: Wound dressing in place to the left lower extremity. There is a chronic appearing wound to the left lateral leg with some scant purulent drainage. Once and foul smell associated tenderness to palpation but no crepitus. PSYCHIATRIC: Normal affect/mood, Course Vital Signs Vital signs: Vital Signs Temperature 99.7 F H 03/12/25 21:14 Pulse Rate 130 H 03/12/25 21:14 Respiratory Rate 19 03/12/25 21:14 Blood Pressure 147/68 H 03/12/25 21:14 Pulse Oximetry 100 03/12/25 21:14 Oxygen Delivery Room Air 03/12/25 21:14 Temperature 99.7 F H 03/12/25 21:14 Pulse Rate 109 H 03/13/25 05:15 Respiratory Rate 22 H 03/13/25 05:15 Blood Pressure 107/57 L 03/13/25 05:15 Pulse Oximetry 95 03/13/25 05:15 Oxygen Delivery Room Air 03/12/25 21:14 MDM - Fall MDM Narrative Medical decision making narrative: 69-year-old male Presenting for fall with right elbow pain and generalized weakness. On initial evaluation patient was in no acute distress, afebrile, hemodynamic stable. Differentials include but are not limited to: Fracture, sprain, strain, contusion cellulitis, necrotizing fasciitis, abrasion, electrolyte abnormality, ACS, CHF Notable exam findings: Abrasion over the right elbow. There is a chronic appearing wound to the left lower extremity with surrounding erythema and scant perianal and drainage, no crepitus Notable lab findings: Leukocytosis at 16.4, anemic to 9.2 which is a delta of 5 g from 4 months ago, hypokalemic to 3.3. UA showed no evidence of UTI. Notable imaging findings: No fractures identified, no pneumonia and no subcutaneous air Patient and family were requesting rehab placement due to his generalized weakness and their inability to take care of him at home. Patient was also found toe likely pretty extensive cellulitis that appears to be acute on chronic and does have a very foul smell which is likely the source of his leukocytosis. He was started on vancomycin. I discussed case with hospitalist, does recommend adding on Flagyl and cefepime given that he is in sepsis. Dr. Bowles will admit the patient. Medical Records Attestation: I reviewed the patient's medical records. Lab Data Attestation: I reviewed the patient's lab results. 03/13/25 00:38 03/13/25 00:38 Labs: Lab Results 03/13/25 03/13/25 Range/Units 00:38 02:06 WBC 16.4 H (4.5-10.0) K/mm3 RBC 4.02 L (4.6-6.20) M/mm3 Hgb 9.2 L D (14.0-18.0) g/dL Hct 29.6 L (42.0-52.0) % MCV 73.6 L (80-100) fl MCH 22.9 L (26-34) pg MCHC 31.1 L (32-36) g/dl RDW 17.2 H (11.5-14.5) % Plt Count 517 H D (150-375) k/mm3 MPV 8.8 (7.4-10.4) fl Immature Gran % (Auto) 0.5 (0-0.5) % Neut % (Auto) 83.1 H (45.5-73.1) % Lymph % (Auto) 8.4 L (18.3-44.2) % [place] % (Auto) 7.8 (2.6-8.5) % Eos % (Auto) 0.0 (0-4.4) % Baso % (Auto) 0.2 (0.2-1.2) % Lymph # (Auto) 1.38 (0.9-3.2) K/mm3 [place] # (Auto) 1.3 H (0.1-0.6) K/mm3 Eos # (Auto) 0.0 (0-0.3) K/mm3 Baso # (Auto) 0.0 (0.0-0.1) K/mm3 Abs Immat Gran (auto) 0.08 H (0.00-0.031) K/mm3 Absolute Neuts (auto) 13.7 H (1.3-6.7) K/mm3 Absolute Nucleated RBC 0.000 (0.0-0.012) K/mm3 Band Neutrophils % Not Reportable Nucleated RBC % 0.0 (0.0-0.2) % Platelet Estimate Increased (Adequate) Hypochromasia 1+ Anisocytosis 1+ Target Cells Occasional Schistocytes None seen Sodium 133 L (137-145) mmol/L Potassium 3.3 L (3.4-5.0) mmol/L Chloride 96 L (98-107) mmol/L Carbon Dioxide 31 H (22-30) mmol/L Anion Gap 6 (4-12) mmol/L BUN 18 (9-20) mg/dL Creatinine 0.65 L (0.7-1.3) mg/dL Estim Creat Clear Calc 126 ml/min Estimated GFR > 60 (59 - ) Glucose 112 H (65-110) mg/dL Calcium 8.8 (8.4-10.2) mg/dL Magnesium 1.9 (1.6-2.3) mg/dL Total Bilirubin 0.7 (0.2-1.3) mg/dL AST 66 H (17-59) U/L ALT 44 (6-50) U/L Alkaline Phosphatase 101 (38-126) U/L NT-Pro-B Natriuret Pep 286 H (19.9-100) pg/mL Total Protein 8.0 (6.3-8.2) g/dL Albumin 3.3 L (3.5-5.1) g/dL Procalcitonin 0.2 ng/mL Urine Color Dark yellow (Yellow) Urine Appearance Cloudy H (Clear) Urine pH 5.5 (5.0-9.0) Ur Specific [place] 1.028 (1.001-1.035) Urine Protein 2+ H (Negative) mg/dL Urine Glucose (UA) Negative (Negative) mg/dL Urine Ketones Trace H (Negative) mg/dL Ur Blood (Man) 3+ H (Negative) Urine Nitrate Negative (Negative) Urine Bilirubin 1+ H (Negative) Urine Urobilinogen 1.0 (<2.0) mg/dL Add Ur Microanalysis Reviewed Leukocyte Esterase Rfl 2+ H (Negative) DANIELA/UL Urine RBC 0-2 (0-2) /hpf Urine WBC 21-50 H (0-3) /hpf Ur Squamous Epith Cells Occasional (Few) /hpf Urine Bacteria None seen /hpf Urine Casts 6-10 Urine Mucus Present /lpf Imaging Data Attestation: I personally reviewed and interpreted this imaging study as follows: My impression: Right Elbow x-ray: No acute fractures Chest x-ray: Normal cardiac silhouette, no consolidations, no pleural effusions, no pulmonary vascular congestion Left Tibia/fibula x-ray: No subcutaneous air, no fractures All imaging pending final Radiology read ECG Data EKG #1: Attestation: I personally reviewed and interpreted this ECG as follows: ECG completion date: 03/13/25 ECG completion time: 00:56 Interpretation: Sinus tachycardia rate 115, normal axis, QTC 483, no acute ST or T-wave changes Discharge Plan Discharge Clinical Impression: Cellulitis, Fall, Generalized weakness, Sepsis, Acute hypokalemia, Anemia Patient Disposition: Still a Patient Condition: Stable
[2025-03-13 00:45] LABS: Hematocrit 29.6 % (42.0-52.0); Hemoglobin 9.2 g/dL (14.0-18.0); Immature Granulocyte Percent A 0.5 % (0-0.5); Lymphocytes Absolute Auto 1.38 K/mm3 (0.9-3.2); Mean Corpuscular HGB Conc 31.1 g/dl (32-36); Mean Corpuscular Hemoglobin 22.9 pg (26-34); Mean Corpuscular Volume 73.6 fl (80-100); Nucleated Red Blood Cells Absolute Auto 0.000 K/mm3 (0.0-0.012); Nucleated Red Blood Cells Perc 0.0 % (0.0-0.2); Platelet Count Result 517 k/mm3 (150-375); Red Blood Count 4.02 M/mm3 (4.6-6.20); White Blood Count 16.4 K/mm3 (4.5-10.0)
[2025-03-13 00:57] LABS: Alanine Aminotransferase 44 U/L (6-50); Albumin Level 3.3 g/dL (3.5-5.1); Alkaline Phosphatase 101 U/L (38-126); Anion Gap 6 mmol/L (4-12); Aspartate Amino Transferase 66 U/L (17-59); Bilirubin,Total 0.7 mg/dL (0.2-1.3); Blood Urea Nitrogen 18 mg/dL (9-20); Calcium 8.8 mg/dL (8.4-10.2); Carbon Dioxide 31 mmol/L (22-30); Chloride 96 mmol/L (98-107); Estimated CRCL calculation 126 ml/min; Estimated Glomerular Filt Rate > 60; Glucose 112 mg/dL (65-110); Magnesium 1.9 mg/dL (1.6-2.3); Potassium 3.3 mmol/L (3.4-5.0); Sodium 133 mmol/L (137-145); Total Protein 8.0 g/dL (6.3-8.2)
[2025-03-13 01:13] LABS: NT Pro B Type Natriuretic Pept 286 pg/mL (19.9-100)
[2025-03-13 01:29] LABS: Hypochromasia 1+
[2025-03-13 01:30] LABS: Anisocytosis 1+; Schistocytes None Seen; Target Cells Occasional
[2025-03-13] MEDS: LIDOCAINE 5% PATCH 1 PATCH TRANSDERM (01:50)
[2025-03-13] MEDS: CYCLOBENZAPRINE HCL 10 MG TABLET PO (01:51)
[2025-03-13] MEDS: SODIUM CHLORIDE 0.9% IV 1,000 ML 999 ML IV CONT ×3 (01:52→04:42)
[2025-03-13 02:26] LABS: Add Urine Microscopic? YES; Appearance Urine Cloudy (Clear); Glucose Urine UA Negative (Negative); Leukocyte Esterase Ur 2+ LEU/UL (Negative); Need Manual Microscopic Reviewed; Nitrate Urine Negative (Negative); Specific Grav Ur 1.028 (1.001-1.035)
[2025-03-13] MEDS: oxyCODONE HCL (*CRX) 5 MG TAB IR PO (02:38)
[2025-03-13] MEDS: VANCOMYCIN 1,250 MG/NS 250 ML 1,250 MG/250 ML BAG 166.67 MG IVPB ×2 (04:17→06:03)
[2025-03-13 04:25] LABS: Procalcitonin 0.2 ng/mL
--- NOTE | 2025-03-13 04:26 | WPCEDHO ---
ED Hand Off Checklist All vitals saved: yes IV Site documented: yes All med administrations documented: yes Triage Note Triage Note pt to ED via EMS with c/o GLF. pt 03/13/25 00:41 states he was trying to stand when he fell. pt has been having increased weakness. pt denies any injuries from the fall. pt states he has chronic back pain and may be flared from this fall. pt has a skin tear to the r elbow. pt is A+Ox4. pt denies hitting head or LOC agree with triage assessment. pt resting in room. EDP at bedside Allergies No Known Allergies Allergy (Verified 02/12/25 13:07) Family History (Last Reviewed 03/13/25 @ 00:44 by Dudley Piedra DO) Mother Family history of malignant neoplasm Father Family history of diabetes mellitus in first degree relative Family history of type 2 diabetes mellitus Skin cancer Active Medications including assessments/comments Vancomycin HCl (Vancomycin 1,250 Mg/Ns 250 Ml) 1,250 mg in 250 mls @ 166.667 mls/hr IVPB ONCE ONE Stop: 03/13/25 04:29 Last Admin: 03/13/25 04:17 Dose: 166.67 mls/hr Documented By: ACS Infusion/Titration Document 03/13/25 04:17 ACS (Rec: 03/13/25 04:17 ACS [id number]) Intake IV Site Peripheral Access Right Antecubital Container Volume 250 Waste Amount 0 Dosing Infusion Rate 166.67 Increase/Decrease Started Elapsed Time Elapsed Time ( 0m minutes) Administered/Completed Medications Discontinued Medications Cyclobenzaprine HCl (Cyclobenzaprine Hcl 10 Mg Tablet) 10 mg PO ONCE ONE Stop: 03/13/25 00:54 Last Admin: 03/13/25 01:51 Dose: 10 mg Documented By: ACS Sodium Chloride (Normal Saline Iv) 1,000 mls @ 999 mls/hr IV CONT .Q1H1M STA Stop: 03/13/25 02:15 Last Infusion: 03/13/25 02:42 Dose: Infused Documented By: Admin: 03/13/25 01:52 Dose: 999 mls/hr Documented By: ACS Lidocaine (Lidocaine 5% Patch) 1 patch TRANSDERM ONCE STA Stop: 03/13/25 00:54 Last Admin: 03/13/25 01:50 Dose: 1 patch Documented By: ACS Oxycodone HCl (Oxycodone Hcl (*Crx) 5 Mg Tab Ir) 5 mg PO ONCE STA Stop: 03/13/25 02:23 Last Admin: 03/13/25 02:38 Dose: 5 mg Documented By: DINA Interventions/Assessments IV Line Assessment Start: 03/12/25 21:13 Freq: Status: Active Protocol: Document 03/13/25 04:14 ACS (Rec: 03/13/25 04:16 ACS [id number]) IV Assessment Peripheral Access Right Antecubital IV Catheter Access Initiated IV Insertion Date 03/13/25 IV Insertion Time 04:16 Catheter Gauge 18 IV Insertion 1 Attempts IV Site Assessment WNL IV Care and WNL Maintenance PA: Musculoskeletal Assessment Start: 03/12/25 21:13 Freq: Status: Active Protocol: Document 03/13/25 00:42 ACS (Rec: 03/13/25 00:42 ACS [id number]) Musculoskeletal Assessment Right Elbow(s) Musculoskeletal Muscle Pain,Muscle Pain With Movement Symptoms PA: Neurological Assessment Start: 03/12/25 21:13 Freq: Status: Active Protocol: Document 03/13/25 00:42 ACS (Rec: 03/13/25 00:43 ACS [id number]) Neurological Assessment Level of Alert Consciousness Arousable to Verbal Orientation Oriented to Person,Oriented to Place,Oriented to Time Neurological Frequent Falls,Weakness, General Symptoms Hallucination Type None Behavior Appropriate,Cooperative Patient Able to Comprehend Comprehension Memory Description Intact [place] Coma Scale Eyes Open Verbal Oriented and Alert Motor Follows Commands Kristopher Coma Total 15 Score Last Vital Signs Temperature 99.7 F H 03/12/25 21:14 Pulse Rate 109 H 03/13/25 04:23 Respiratory Rate 22 H 03/13/25 04:23 Pulse Oximetry 95 03/13/25 04:23 Blood Pressure 107/57 L 03/13/25 04:23 Blood Pressure Mean 73 03/13/25 04:23 Oxygen Delivery Room Air 03/12/25 21:14 Weight 119.5 kg 03/13/25 00:41 Last Result - Abnormals Only WBC 16.4 K/mm3 (4.5-10.0) H 03/13/25 00:38 RBC 4.02 M/mm3 (4.6-6.20) L 03/13/25 00:38 Hgb 9.2 g/dL (14.0-18.0) L D 03/13/25 00:38 Hct 29.6 % (42.0-52.0) L 03/13/25 00:38 MCV 73.6 fl (80-100) L 03/13/25 00:38 MCH 22.9 pg (26-34) L 03/13/25 00:38 MCHC 31.1 g/dl (32-36) L 03/13/25 00:38 RDW 17.2 % (11.5-14.5) H 03/13/25 00:38 Plt Count 517 k/mm3 (150-375) H D 03/13/25 00:38 Neut % (Auto) 83.1 % (45.5-73.1) H 03/13/25 00:38 Lymph % (Auto) 8.4 % (18.3-44.2) L 03/13/25 00:38 [place] # (Auto) 1.3 K/mm3 (0.1-0.6) H 03/13/25 00:38 Abs Immat Gran (auto) 0.08 K/mm3 (0.00-0.031) H 03/13/25 00:38 Absolute Neuts (auto) 13.7 K/mm3 (1.3-6.7) H 03/13/25 00:38 Sodium 133 mmol/L (137-145) L 03/13/25 00:38 Potassium 3.3 mmol/L (3.4-5.0) L 03/13/25 00:38 Chloride 96 mmol/L (98-107) L 03/13/25 00:38 Carbon Dioxide 31 mmol/L (22-30) H 03/13/25 00:38 Creatinine 0.65 mg/dL (0.7-1.3) L 03/13/25 00:38 Glucose 112 mg/dL (65-110) H 03/13/25 00:38 AST 66 U/L (17-59) H 03/13/25 00:38 NT-Pro-B Natriuret Pep 286 pg/mL (19.9-100) H 03/13/25 00:38 Albumin 3.3 g/dL (3.5-5.1) L 03/13/25 00:38 Urine Appearance Cloudy (Clear) H 03/13/25 02:06 Urine Protein 2+ mg/dL (Negative) H 03/13/25 02:06 Urine Ketones Trace mg/dL (Negative) H 03/13/25 02:06 Ur Blood (Man) 3+ (Negative) H 03/13/25 02:06 Urine Bilirubin 1+ (Negative) H 03/13/25 02:06 Leukocyte Esterase Rfl 2+ DANIELA/UL (Negative) H 03/13/25 02:06 Urine WBC 21-50 /hpf (0-3) H 03/13/25 02:06 Most Recent Suicide Severity Rating Suicide Severity Rating NO RISK INDICATED 03/13/25 00:41
[2025-03-13] MEDS: POTASSIUM CHLORIDE 20 MEQ PACKET (FOR LIQUID) 40 MEQ PO (04:42)
[2025-03-13 04:52] LABS: Influenza A QL RT-PCR Negative (Negative); Influenza B QL RT-PCR Negative (Negative); RSV RNA, RT-PCR Negative (Negative); SARS-CoV-2 RNA PCR Negative (Negative)
[2025-03-13] MEDS: CEFEPIME 2 GM in SODIUM CHLORIDE 0.9% IV 50 ML 100 ML IVPB ×2 (05:12→17:41)
[2025-03-13] MEDS: SODIUM CHLORIDE 0.9% IV 500 ML 999 ML IV CONT (05:12)
--- NOTE | 2025-03-13 05:57 | WNDPHOTO ---
left leg PHOTO ONLY - See Nursing Notes and/ or assessments for documentation.
[2025-03-13] MEDS: SODIUM CHLORIDE 0.9% IV 1,000 ML 150 ML IV CONT (06:04)
[2025-03-13] MEDS: metroNIDAZOLE 500 MG/ISO 100ML 500 MG/100 ML BAG 100 MG IVPB ×3 (06:07→21:21)
--- NOTE | 2025-03-13 06:51 | ADMGEN ---
This patient, Bernabe Maxr Jr., was admitted to 3 Med Surg Room 332-01. Patient/family oriented to hospital policies and general routines including ID bracelet, bed and alarms, visiting hours, pain management, procedures, bathroom and other care routines, personal items, smoking policy, room service/diet, and visiting hours. Information on how to activate the Rapid Response Team has been discussed. Patient/Family are encouraged to report perceived risks to care and to ask questions if they do not understand what they are told or what they should do.
[2025-03-13 09:28] LABS: Hematocrit 27.0 % (42.0-52.0); Hemoglobin 8.1 g/dL (14.0-18.0); Immature Granulocyte Percent A 1.0 % (0-0.5); Lymphocytes Absolute Auto 1.05 K/mm3 (0.9-3.2); Mean Corpuscular HGB Conc 30.0 g/dl (32-36); Mean Corpuscular Hemoglobin 22.6 pg (26-34); Mean Corpuscular Volume 75.4 fl (80-100); Nucleated Red Blood Cells Absolute Auto 0.000 K/mm3 (0.0-0.012); Nucleated Red Blood Cells Perc 0.0 % (0.0-0.2); Platelet Count Result 396 k/mm3 (150-375); Red Blood Count 3.58 M/mm3 (4.6-6.20); White Blood Count 12.7 K/mm3 (4.5-10.0)
[2025-03-13 10:05] LABS: Alanine Aminotransferase 30 U/L (6-50); Albumin Level 2.5 g/dL (3.5-5.1); Alkaline Phosphatase 82 U/L (38-126); Anion Gap 3 mmol/L (4-12); Aspartate Amino Transferase 54 U/L (17-59); Bilirubin,Total 0.5 mg/dL (0.2-1.3); Blood Urea Nitrogen 13 mg/dL (9-20); Calcium 7.6 mg/dL (8.4-10.2); Carbon Dioxide 27 mmol/L (22-30); Chloride 103 mmol/L (98-107); Estimated CRCL calculation 150 ml/min; Estimated Glomerular Filt Rate > 60; Glucose 82 mg/dL (65-110); Magnesium 1.8 mg/dL (1.6-2.3); Potassium 3.1 mmol/L (3.4-5.0); Sodium 133 mmol/L (137-145); Total Protein 6.4 g/dL (6.3-8.2)
[2025-03-13] MEDS: glipiZIDE XL 5 MG TABCR PO (10:37)
[2025-03-13] MEDS: FUROSEMIDE 20 MG TABLET PO (10:37)
--- NOTE | 2025-03-13 14:36 | P.HP_ITS ---
H&P: HPI History of Present Illness Date/Time: 03/13/25 14:36 Chief Complaint: Fall/weakness Narrative: Patient is a 69-year-old male with past history of diabetes, hypertension, HLD, PVD, PEs, venous stasis bilateral lower extremities and chronic wounds bilateral who presented to the emergency department with complaints of fall at home and worsening weakness. Patient denied hitting his head or losing consciousness he denies any chest pain, shortness a breath, nausea, vomiting, fever chills. Patient with chronic bilateral lower extremity wounds appears to have some drainage from sites. Patient with mild to moderate bilateral lower extremity pain follow with wound clinic outpatient. In the ED: Trauma imaging was negative for any acute fractures, WBC 16.4 POA, normal lactic. Tib fib x-ray [id number] OA. Patient with tachycardia, tachypnea blood pressure was mildly soft. Patient admitted to medical unit for further evaluation and treatment of cellulitis to left lower extremity unsteady gait and fall. Review of Systems 2 Review of Systems: All systems reviewed & are unremarkable except as noted in HPI and below PMFSH Past Medical History Medical History Rhinosinusitis Peripheral vascular disease Hx of adenomatous colonic polyps Hematuria MTHFR gene mutation Stasis dermatitis Personal history of pulmonary embolism Pure hypercholesterolemia, unspecified Essential (primary) hypertension Surgical History Surgical History Status post endovenous radiofrequency ablation (RFA) of saphenous vein Hx of cholecystectomy Hx of colonoscopy Family History Family History Mother Family history of malignant neoplasm multiple myeloma Father Family history of diabetes mellitus in first degree relative Family history of type 2 diabetes mellitus Skin cancer Social History Social History Social History: Smoking status: Never smoker Second hand tobacco smoke exposure: No Alcohol intake: never Substance use: never Substance use type: does not use Lack of Transportation: No Lack of Food: Never True Current Housing: I Have Housing Concerned About Future Housing: No Difficulty Paying Gas/Electric Bills: No Difficulty Paying for Meds: No Currently Unemployed: No Education: Decline to Answer Difficulty w/ Childcare or Family Care: No Living arrangements: with family Additional living arrangements comments: with sp Occupation/Education: occupation Gender identity (if verbalized by the patient): Male Sexual Orientation (if Verbalized by the Patient): Straight or Heterosexual Spiritual care concerns: No Meds Home Medications and Allergies Home Medications ?Medication ?Instructions ?Recorded ?Confirmed ?Type atorvastatin 10 mg tablet See Rx Instructions .Route 1 05/15/23 03/13/25 Rx .COMPLEX #90 tabs apixaban 5 mg tablet (Eliquis) 5 mg PO BID #180 tabs 0 10/30/24 03/13/25 Rx furosemide 20 mg tablet (Lasix) 20 mg PO QAM #90 tabs 01/04/25 03/13/25 Rx pantoprazole 40 mg tablet,delayed 40 mg PO QAM laryng opharyngeal 02/08/25 03/13/25 Rx release reflux #30 tabs glipizide 5 mg tablet, extended 5 mg PO DAILY #90 tabs 02/21/25 03/13/25 Rx release 24 hr lisinopril 20 mg tablet See Rx Instructions .Route 1 03/13/25 Rx .COMPLEX #90 tabs metformin 500 mg tablet,extended 1,000 mg PO BID 03/1303/13/25 History release 24 hr Allergies Allergy/AdvReac Type Severity Reaction Status Date / Time No Known Allergies Allergy Verified 02/12/25 13:07 Vital Signs Vital Signs - 24 hr 03/12/25 21:14 03/13/25 00:01 03/13/25 00:02 Temperature 99.7 F H Pulse Rate 130 H 119 H 116 H Respiratory Rate 19 22 H 25 H Blood Pressure 147/68 H 142/68 H Pulse Oximetry 100 96 94 Oxygen Delivery Room Air 03/13/25 00:15 03/13/25 00:16 03/13/25 00:30 Temperature Pulse Rate 115 H 115 H 118 H Respiratory Rate 15 26 H 24 H Blood Pressure 136/65 Pulse Oximetry 93 94 97 Oxygen Delivery 03/13/25 00:31 03/13/25 00:45 03/13/25 00:59 Temperature Pulse Rate 116 H 115 H 113 H Respiratory Rate 25 H 23 H 25 H Blood Pressure 128/62 133/66 Pulse Oximetry 96 98 98 Oxygen Delivery 03/13/25 01:00 03/13/25 01:01 03/13/25 04:23 Temperature Pulse Rate 114 H 114 H 109 H Respiratory Rate 26 H 25 H 22 H Blood Pressure 110/43 L 107/57 L Pulse Oximetry 98 99 95 Oxygen Delivery 03/13/25 05:15 03/13/25 08:00 03/13/25 11:54 Temperature 98.1 F 98.4 F Pulse Rate 109 H 99 96 Respiratory Rate 22 H 20 22 H Blood Pressure 107/57 L 125/56 L 120/56 L Pulse Oximetry 95 90 91 Oxygen Delivery Exam 2 Const: General: comfortable and no acute distress Other: Pleasant chronically ill gentleman HENMT: Mouth: Yes moist mucous membranes Eyes: General: appearance normal, both eyes and all related structures S clera: sclerae normal Pupils: Equal, round and reactive pupils present Neck: Neck: supple and no JVD Resp: Effort & Inspection: normal respiratory effort Auscultation: clear to auscultation bilaterally Cardio: Rate: tachycardic Rhythm: regular rhythm GI: GI Palp: Yes Soft to palpation Auscultation: normal bowel sounds Skin: General skin exam: dry skin, erythema (LLE ) and excoriation Other: Patient with significant excoriation to her abdominal area, dermatitis stasis, minimal drainage Full body images: 1. 2. 3. Neuro: Speech: normal speech Other: Unable to evaluate gait, pain with and movement to BLE Extrem: General: edema (RLE >LLE 2+) bilateral Psych: Mental Status: mental status grossly normal Affect: normal affect H&P: Results Labs Labs: Short CBC 03/13/25 03/13/25 Range/Units 00:38 09:22 WBC 16.4 H 12.7 H (4.5-10.0) K/mm3 Hgb 9.2 L D 8.1 L (14.0-18.0) g/dL Hct 29.6 L 27.0 L (42.0-52.0) % Plt Count 517 H D 396 H (150-375) k/mm3 BMP 03/13/25 03/13/25 00:38 09:22 Sodium 133 L 133 L Potassium 3.3 L 3.1 L Chloride 96 L 103 Carbon Dioxide 31 H 27 BUN 18 13 D Creatinine 0.65 L 0.55 L Glucose 112 H 82 Calcium 8.8 7.6 L Liver Function 03/13/25 03/13/25 Range/Units 00:38 09:22 Total Bilirubin 0.7 0.5 (0.2-1.3) mg/dL AST 66 H 54 (17-59) U/L ALT 44 30 (6-50) U/L Alkaline Phosphatase 101 82 (38-126) U/L Albumin 3.3 L 2.5 L (3.5-5.1) g/dL Urine 03/13/25 Range/Units 02:06 Urine Color Dark yellow (Yellow) Urine Appearance Cloudy H (Clear) Urine pH 5.5 (5.0-9.0) Ur Specific [place] 1.028 (1.001-1.035) Urine Protein 2+ H (Negative) mg/dL Urine Glucose (UA) Negative (Negative) mg/dL Assessment and Plan Assessment and plan (1) Cellulitis: Qualifiers: Laterality: left Site of cellulitis: extremity Site of cellulitis of extremity: lower extremity Qualified Code(s): L03.116 - Cellulitis of left lower limb Code(s): L03.90 - Cellulitis, unspecified Status: Acute Assessment and Plan: LLE with mild erythema and drainage, WBC of 16.4 * IV vanc, cefepime Flagyl * Wound culture pending * blood cultures NGTD * Lactic WNL * wound consulted follows O/P * keep legs elevated (2) Stasis dermatitis: Code(s): I87.2 - Venous insufficiency (chronic) (peripheral) Status: Acute Assessment and Plan: * Follows O/P with wound * See Above (3) Essential (primary) hypertension: Code(s): I10 - Essential (primary) hypertension Status: Acute Assessment and Plan: * continue Lisinopril * Monitor BP per unit protocol (4) Peripheral vascular disease: Code(s): I73.9 - Peripheral vascular disease, unspecified Status: Acute Assessment and Plan: * Continue Atorvastatin and eliquis (5) Personal history of pulmonary embolism: Code(s): Z86.711 - Personal history of pulmonary embolism Status: Acute Assessment and Plan: * Continue eliquis * monitor H&H (6) Type 2 diabetes mellitus without complications: Code(s): E11.9 - Type 2 diabetes mellitus without complications Status: Acute Assessment and Plan: * Accuchecks ACHS * SSI low dose * hold metformin * continue glipizide * hypoglycemia protocol * diabetic diet (7) Fall: Qualifiers: Encounter type: initial encounter Qualified Code(s): W19.XXXA - Unspecified fall, initial encounter Code(s): W19.XXXA - Unspecified fall, initial encounter Status: Acute Assessment and Plan: * PT/OT will likely need rehab placement (8) Generalized weakness: Code(s): R53.1 - Weakness Status: Acute Assessment and Plan: * See Above (9) Anemia: Qualifiers: Anemia type: unspecified type Qualified Code(s): D64.9 - Anemia, unspecified Code(s): D64.9 - Anemia, unspecified Status: Acute Assessment and Plan: Hgb 8.9 no previous HX no evidence of active GIB but does have bleeding from coccyx excoriation * Monitor H&H * Iron panel pending * will continue Eliquis at this time due to HX of PE but may need to hold if Hgb drops (10) UTI (urinary tract infection): Code(s): N39.0 - Urinary tract infection, site not specified Status: Acute Assessment and Plan: UA with some suspicion of UTI Leukcytes+ and WBC no bacteria * On IV cefepime for cellulitis de-escalate if culture negative Plan Code status: Full code per patient DVT prophylaxis: Eliquis Stress ulcer prophylaxis: Protonix 40 daily home medication PT/OT notes: PT/OT likely rehab Disposition: Patient admitted following a fall at home with worsening weakness and unsteady gait with LLE cellulitis continue TX plan and de-escalate ABX pending cultures. PT/OT for evaluation likely need rehab at discharge. Quality VTE Prophylaxis VTE prophylaxis: pharmacologic ordered -Patient's previous records reviewed on admission -ER notes reviewed in detail on admission -discussed all findings and current treatment plan with patient/Family/POA -Consultations reviewed for recommendations -Patient's disposition for safe discharge discussed with case work aide -radiology imaging, EKG and test results I have personally reviewed and interpreted unless otherwise specified Dictation performed by [email or web address] direct speech recognition software, therefore riveter portable machine variants and typographical errors may occur. Hospitalist MIPS Advance Care Plan I have confirmed that the patient's Advanced Care Plan is present, code status is documented, or surrogate decision maker is listed in patient medical record.: Yes Medication Reconciliation I have utilized all available resources to obtain, update and review the patients current medications (includes all prescriptions, OTC, herbals, cannabis, and nutritional supplements).: Yes The patient is not eligible for med reconciliation; the patient is in a emergent medical situation where delaying treatment would jeopardize the patients health.: No
[2025-03-13] MEDS: VANCOMYCIN 1,500 MG/NS 500 ML 1,500 MG/500 ML BAG 250 MG IVPB (17:42)
[2025-03-13] MEDS: APIXABAN 5 MG TABLET PO (21:17)
[2025-03-13] MEDS: GLUCOSE ORAL GEL 15 GM OF GLUCSE IN 37.5 GM TUBE PO (22:35)
[2025-03-13] MEDS: HYDROcodone/acetaminophen (*CRX) 5-325 MG TABLET 1 TAB PO (22:36)
[2025-03-14] VITALS (11 sets, daily range): BP systolic 98–120; BP diastolic 46–77; PULSE 69–87; RESP 18–26; TEMP 36.5–36.6; O2SAT 95–96
[2025-03-14] MEDS: metroNIDAZOLE 500 MG/ISO 100ML 500 MG/100 ML BAG 100 MG IVPB ×3 (04:21→20:00)
[2025-03-14] MEDS: CEFEPIME 2 GM in SODIUM CHLORIDE 0.9% IV 50 ML 100 ML IVPB ×2 (04:21→16:02)
[2025-03-14] MEDS: VANCOMYCIN 1,500 MG/NS 500 ML 1,500 MG/500 ML BAG 250 MG IVPB ×2 (05:26→17:14)
[2025-03-14 05:39] LABS: Hematocrit 25.4 % (42.0-52.0); Hemoglobin 7.8 g/dL (14.0-18.0); Immature Granulocyte Percent A 0.9 % (0-0.5); Lymphocytes Absolute Auto 1.18 K/mm3 (0.9-3.2); Mean Corpuscular HGB Conc 30.7 g/dl (32-36); Mean Corpuscular Hemoglobin 22.9 pg (26-34); Mean Corpuscular Volume 74.5 fl (80-100); Nucleated Red Blood Cells Absolute Auto 0.000 K/mm3 (0.0-0.012); Nucleated Red Blood Cells Perc 0.0 % (0.0-0.2); Platelet Count Result 374 k/mm3 (150-375); Red Blood Count 3.41 M/mm3 (4.6-6.20); White Blood Count 12.7 K/mm3 (4.5-10.0)
[2025-03-14 05:51] LABS: Iron < 10 ug/dL (49-181)
[2025-03-14 05:53] LABS: Alanine Aminotransferase 34 U/L (6-50); Albumin Level 2.4 g/dL (3.5-5.1); Alkaline Phosphatase 95 U/L (38-126); Anion Gap 5 mmol/L (4-12); Aspartate Amino Transferase 62 U/L (17-59); Bilirubin,Total 0.5 mg/dL (0.2-1.3); Blood Urea Nitrogen 11 mg/dL (9-20); Calcium 7.7 mg/dL (8.4-10.2); Carbon Dioxide 27 mmol/L (22-30); Chloride 101 mmol/L (98-107); Estimated CRCL calculation 152 ml/min; Estimated Glomerular Filt Rate > 60; Glucose 62 mg/dL (65-110); Magnesium 2.0 mg/dL (1.6-2.3); Potassium 2.9 mmol/L (3.4-5.0); Sodium 133 mmol/L (137-145); Total Protein 6.0 g/dL (6.3-8.2)
[2025-03-14 06:01] LABS: Percent Iron Saturation 8 % (20-50)
[2025-03-14 06:20] LABS: Hypochromasia 2+; Microcytosis 1+ (NORMAL); Target Cells 1+
[2025-03-14 06:21] LABS: Schistocytes None Seen
[2025-03-14] MEDS: POTASSIUM CHLORIDE INJ 40 MEQ in SODIUM CHLORIDE 0.9% IV 500 ML 130 MEQ IVPB (08:49)
[2025-03-14] MEDS: FUROSEMIDE 20 MG TABLET PO (08:50)
[2025-03-14] MEDS: PANTOPRAZOLE 40 MG TABLET PO (08:50)
[2025-03-14] MEDS: ATORVASTATIN 10 MG TABLET PO (08:50)
[2025-03-14] MEDS: APIXABAN 5 MG TABLET PO ×2 (08:50→21:49)
[2025-03-14] MEDS: POTASSIUM CHLORIDE 20 MEQ PACKET (FOR LIQUID) 40 MEQ PO (08:50)
--- NOTE | 2025-03-14 12:06 | P.PNIM_ITS ---
Progress Note: A&P Assessment and Plan (1) Cellulitis: Qualifiers: Laterality: left Site of cellulitis: extremity Site of cellulitis of extremity: lower extremity Qualified Code(s): L03.116 - Cellulitis of left lower limb Code(s): L03.90 - Cellulitis, unspecified Status: Acute Assessment and Plan: LLE with mild erythema and drainage, WBC of 16.4 * IV vanc, cefepime Flagyl * Wound culture pending * blood cultures NGTD * Lactic WNL * wound consulted follows O/P * keep legs elevated * wbc slowly improving * AM labs (2) Stasis dermatitis: Code(s): I87.2 - Venous insufficiency (chronic) (peripheral) Status: Acute Assessment and Plan: * Follows O/P with wound * See Above (3) Essential (primary) hypertension: Code(s): I10 - Essential (primary) hypertension Status: Acute Assessment and Plan: * continue Lisinopril * Monitor BP per unit protocol (4) Peripheral vascular disease: Code(s): I73.9 - Peripheral vascular disease, unspecified Status: Acute Assessment and Plan: * Continue Atorvastatin and eliquis (5) Personal history of pulmonary embolism: Code(s): Z86.711 - Personal history of pulmonary embolism Status: Acute Assessment and Plan: * Continue liseth * monitor H&H (6) Type 2 diabetes mellitus without complications: Code(s): E11.9 - Type 2 diabetes mellitus without complications Status: Acute Assessment and Plan: * Accuchecks ACHS * SSI low dose * hold metformin * hold glipizide * hypoglycemia protocol * diabetic diet (7) Fall: Qualifiers: Encounter type: initial encounter Qualified Code(s): W19.XXXA - Unspecified fall, initial encounter Code(s): W19.XXXA - Unspecified fall, initial encounter Status: Acute Assessment and Plan: * PT/OT will likely need rehab placement * patient reports low back pain that is new since fall * check x-rays of lumbar spine * adjust pain medications (8) Generalized weakness: Code(s): R53.1 - Weakness Status: Acute Assessment and Plan: * See Above (9) Anemia: Qualifiers: Anemia type: unspecified type Qualified Code(s): D64.9 - Anemia, unspecified Code(s): D64.9 - Anemia, unspecified Status: Acute Assessment and Plan: Hgb 8.9 no previous HX no evidence of active GIB but does have bleeding from coccyx excoriation * Monitor H&H * Iron panel pending * will continue Eliquis at this time due to HX of PE but may need to hold if Hgb drops (10) UTI (urinary tract infection): Code(s): N39.0 - Urinary tract infection, site not specified Status: Acute Assessment and Plan: UA with some suspicion of UTI Leukcytes+ and WBC no bacteria * On IV cefepime for cellulitis de-escalate if culture negative Subjective Date/time seen: 03/14/25 12:06 Interval history: Patient seen for a follow up visit. Patient sitting up in chair, in distress due to low back pain. Patient reports he has had uncontrolled low back pain since his fall. He reports the medications he is taking are not helping. Change PRN Lowgap to PRN oxycodone IR. Change PRN Tylenol to scheduled. Add lidocaine patches scheduled. Check x-rays of patient's lumbar spine as no imaging was done of this area in the ED. Patient's potassium 2.9 on AM labs. PO kcl 40 meq and IVPB kcl 40 meq ordered for replacement with repeat BMP at 1400. Patient continues on IV antibiotics for LLE cellulitis with wbc count slowly improving. Review of Systems Review of Systems: All systems reviewed & are unremarkable except as noted in HPI and below Exam Const: General: comfortable and no acute distress Other: Pleasant chronically ill gentleman HENMT: Mouth: Yes moist mucous membranes Eyes: General: appearance normal, both eyes and all related structures Sclera: sclerae normal Pupils: Equal, round and reactive pupils present Neck: Neck: supple and no JVD Resp: Effort & Inspection: normal respiratory effort Auscultation: clear to auscultation bilaterally Cardio: Rate: tachycardic Rhythm: regular rhythm GI: Auscultation: normal bowel sounds Skin: General skin exam: dry skin, erythema (LLE ) and excoriation Other: Patient with significant excoriation to her abdominal area, dermatitis stasis, minimal drainage Neuro: Cranial nerves: Yes Equal, round and reactive pupils present Speech: normal speech Other: Unable to evaluate gait, pain with and movement to BLE Extrem: General: edema (RLE >LLE 2+) bilateral Psych: Mental Status: mental status grossly normal Affect: normal affect Objective Data Vital Signs Vital Signs: Vital Signs - 24 hr 03/13/25 16:00 03/13/25 16:00 03/13/25 20:00 Temperature 99.5 F 99.7 F H Pulse Rate 100 95 98 Respiratory Rate 20 28 H Blood Pressure 130/51 L 122/48 L Pulse Oximetry 93 94 Oxygen Delivery 03/13/25 20:00 03/13/25 20:00 03/14/25 00:00 Temperature Pulse Rate 89 69 Respiratory Rate Blood Pressure Pulse Oximetry Oxygen Delivery Room Air 03/14/25 04:00 03/14/25 06:00 03/14/25 08:00 Temperature 97.7 F Pulse Rate 75 75 Respiratory Rate 18 Blood Pressure 111/77 Pulse Oximetry 95 Oxygen Delivery Room Air 03/14/25 08:00 03/14/25 08:38 03/14/25 11:20 Temperature Pulse Rate 80 80 Respiratory Rate Blood Pressure Pulse Oximetry Oxygen Delivery Room Air Intake/Output Intake/Output: Intake & Output 03/11/25 03/12/25 03/13/25 03/14/25 23:59 23:59 23:59 23:59 Intake Total 3270 1370 Output Total 600 700 Balance 2670 670 Meds/Results Medications: Active Medications Generic Name Dose Route Start Last Admin Trade Name Freq PRN Reason Stop Dose Admin Acetaminophen 650 mg 03/13/25 08:49 Acetaminophen 325 Mg Tablet PO Q4H PRN Mild Pain (1-3) or Fever Hydrocodone Bitart/Acetaminophen 1 tab 03/13/25 08:49 03/13/25 22:36 Hydrocodone/Acetaminophen (*Crx) 5-325 Mg Tablet PO 1 tab Q4H PRN Administration Moderate Pain (4-6) Apixaban 5 mg 03/13/25 21:00 03/14/25 08:50 Apixaban 5 Mg Tablet PO 5 mg Q12HR EJ Administration Atorvastatin Calcium 10 mg 03/13/25 09:00 03/14/25 08:50 Atorvastatin 10 Mg Tablet PO 10 mg DAILY EJ Administration Dextrose 12.5 gm 03/13/25 08:49 Dextrose 50% 25 Gm/50 Ml Syringe IV PUSH PRN PRN Hypoglycemia Protocol Ferrous Sulfate 325 mg 03/14/25 09:00 Ferrous Sulfate 325 Mg Tablet PO BID EJ Furosemide 20 mg 03/13/25 09:00 03/14/25 08:50 Furosemide 20 Mg Tablet PO 20 mg QAM EJ Administration Glipizide 5 mg 03/13/25 08:00 03/14/25 08:53 Glipizide Xl 5 Mg Tabcr PO Not Given DAILY@0800 EJ Glucagon 1 mg 03/13/25 08:49 Glucagon For Inj 1 Mg Vial IM PRN PRN Hypoglycemia Protocol Glucose 15 gm 03/13/25 08:49 03/13/25 22:35 Glucose Oral Gel 15 Gm Of Glucse In 37.5 Gm Tube PO 15 gm PRN PRN Administration Hypoglycemia Protocol Vancomycin HCl 1,500 mg in 500 mls @ 250 mls/hr 03/13/25 17:00 03/14/25 07:26 Vancomycin 1,500 Mg/Ns 500 Ml IVPB Infused Q12H EJ Infusion Metronidazole 500 mg in 100 mls @ 100 mls/hr 03/13/25 04:00 03/14/25 05:21 Flagyl 500 Mg/Iso Soln 100 Ml IVPB Infused Q8H EJ Infusion Cefepime HCl 2 gm/ Sodium 50 mls @ 100 mls/hr 03/13/25 04:00 03/14/25 04:51 Chloride IVPB Infused Q12H EJ Infusion Dextrose 1,000 mls @ 100 mls/hr 03/13/25 08:49 Dextrose 5% 1,000 Ml IVPB PRN PRN Hypoglycemia Protocol Potassium Chloride 40 meq/ 520 mls @ 130 mls/hr 03/14/25 08:45 03/14/25 08:49 Sodium Chloride IVPB 03/14/25 12:44 130 mls/hr ONCE ONE Administration Insulin Aspart 2 - 5 units 03/13/25 12:00 03/14/25 08:49 Insulin Aspart (*Bkc) 100 Units/Ml SUB-Q Not Given TIDWM [facility] Protocol Lisinopril 20 mg 03/13/25 21:00 03/13/25 21:17 Lisinopril 20 Mg Tablet PO 20 mg HS EJ Administration Ondansetron HCl 4 mg 03/13/25 08:49 Ondansetron Inj 4 Mg/2 Ml Vial IV PUSH Q6H PRN Nausea And Vomiting Pantoprazole Sodium 40 mg 03/13/25 08:00 03/14/25 08:50 Pantoprazole 40 Mg Tablet PO 40 mg DAILY@0800 EJ Administration Radiology Results: ITS Impressions Elbow X-Ray 03/13/25 07:04 Impression: 1: No acute bone or joint abnormality. Chest X-Ray 03/13/25 07:05 IMPRESSION: 1: NO ACUTE CARDIOPULMONARY DISEASE. Tibia/Fibula X-Ray 03/13/25 07:06 Impression: 1: Mild-moderate polyarticular osteoarthritis. Labs Labs: Laboratory Results - last 24 hr 03/13/25 03/13/25 03/13/25 16:54 22:27 23:36 WBC RBC Hgb Hct MCV MCH MCHC RDW Plt Count MPV Immature Gran % (Auto) Neut % (Auto) Lymph % (Auto) [place] % (Auto) Eos % (Auto) Baso % (Auto) Lymph # (Auto) [place] # (Auto) Eos # (Auto) Baso # (Auto) Abs Immat Gran (auto) Absolute Neuts (auto) Absolute Nucleated RBC Band Neutrophils % Nucleated RBC % Platelet Estimate Hypochromasia Microcytosis Target Cells Schistocytes Sodium Potassium Chloride Carbon Dioxide Anion Gap BUN Creatinine Estim Creat Clear Calc Estimated GFR Glucose POC Capillary Glucose 64 L 64 L 86 Calcium Magnesium Iron TIBC % Saturation Total Bilirubin AST ALT Alkaline Phosphatase Total Protein Albumin 03/14/25 03/14/25 03/14/25 04:40 07:34 08:21 WBC 12.7 H RBC 3.41 L Hgb 7.8 L Hct 25.4 L MCV 74.5 L MCH 22.9 L MCHC 30.7 L RDW 17.3 H Plt Count 374 MPV 8.9 Immature Gran % (Auto) 0.9 H Neut % (Auto) 81.7 H Lymph % (Auto) 9.3 L [place] % (Auto) 7.7 Eos % (Auto) 0.1 Baso % (Auto) 0.3 Lymph # (Auto) 1.18 [place] # (Auto) 1.0 H Eos # (Auto) 0.0 Baso # (Auto) 0.0 Abs Immat Gran (auto) 0.11 H Absolute Neuts (auto) 10.3 H Absolute Nucleated RBC 0.000 Band Neutrophils % Not Reportable Nucleated RBC % 0.0 Platelet Estimate Slightly increased Hypochromasia 2+ Microcytosis 1+ Target Cells 1+ Schistocytes None seen Sodium 133 L Potassium 2.9 L Chloride 101 Carbon Dioxide 27 Anion Gap 5 BUN 11 Creatinine 0.54 L Estim Creat Clear Calc 152 Estimated GFR > 60 Glucose 62 L POC Capillary Glucose 62 L 71 Calcium 7.7 L Magnesium 2.0 Iron < 10 L TIBC 129 L % Saturation 8 L Total Bilirubin 0.5 AST 62 H ALT 34 Alkaline Phosphatase 95 Total Protein 6.0 L Albumin 2.4 L 03/14/25 11:19 WBC RBC Hgb Hct MCV MCH MCHC RDW Plt Count MPV Immature Gran % (Auto) Neut % (Auto) Lymph % (Auto) [place] % (Auto) Eos % (Auto) Baso % (Auto) Lymph # (Auto) [place] # (Auto) Eos # (Auto) Baso # (Auto) Abs Immat Gran (auto) Absolute Neuts (auto) Absolute Nucleated RBC Band Neutrophils % Nucleated RBC % Platelet Estimate Hypochromasia Microcytosis Target Cells Schistocytes Sodium Potassium Chloride Carbon Dioxide Anion Gap BUN Creatinine Estim Creat Clear Calc Estimated GFR Glucose POC Capillary Glucose 71 Calcium Magnesium Iron TIBC % Saturation Total Bilirubin AST ALT Alkaline Phosphatase Total Protein Albumin Quality VTE Prophylaxis VTE prophylaxis: pharmacologic ordered
[2025-03-14] MEDS: FERROUS SULFATE 325 MG TABLET PO ×2 (12:26→17:14)
[2025-03-14] MEDS: HYDROcodone/acetaminophen (*CRX) 5-325 MG TABLET 1 TAB PO (12:27)
[2025-03-14 14:16] LABS: Anion Gap 2 mmol/L (4-12); Blood Urea Nitrogen 11 mg/dL (9-20); Calcium 7.7 mg/dL (8.4-10.2); Carbon Dioxide 29 mmol/L (22-30); Chloride 102 mmol/L (98-107); Estimated CRCL calculation 169 ml/min; Estimated Glomerular Filt Rate > 60; Glucose 55 mg/dL (65-110); Potassium 3.4 mmol/L (3.4-5.0); Sodium 133 mmol/L (137-145)
[2025-03-14] MEDS: ACETAMINOPHEN 500 MG TABLET 1000 MG PO (15:00)
[2025-03-14] MEDS: LIDOCAINE 5% PATCH 2 PATCH TRANSDERM (15:01)
[2025-03-14] MEDS: GLUCOSE ORAL GEL 15 GM OF GLUCSE IN 37.5 GM TUBE PO (21:01)
[2025-03-15] VITALS (9 sets, daily range): BP systolic 106–137; BP diastolic 50–58; PULSE 73–87; RESP 18; TEMP 36.5–37.1; O2SAT 92–98
[2025-03-15] MEDS: VANCOMYCIN 1,500 MG/NS 500 ML 1,500 MG/500 ML BAG 250 MG IVPB ×3 (01:00→17:45)
[2025-03-15] MEDS: metroNIDAZOLE 500 MG/ISO 100ML 500 MG/100 ML BAG 100 MG IVPB ×3 (04:00→21:38)
[2025-03-15] MEDS: CEFEPIME 2 GM in SODIUM CHLORIDE 0.9% IV 50 ML 100 ML IVPB ×2 (04:00→16:43)
[2025-03-15 05:35] LABS: Hematocrit 25.5 % (42.0-52.0); Hemoglobin 7.8 g/dL (14.0-18.0); Immature Granulocyte Percent A 0.8 % (0-0.5); Lymphocytes Absolute Auto 1.42 K/mm3 (0.9-3.2); Mean Corpuscular HGB Conc 30.6 g/dl (32-36); Mean Corpuscular Hemoglobin 22.7 pg (26-34); Mean Corpuscular Volume 74.1 fl (80-100); Nucleated Red Blood Cells Absolute Auto 0.000 K/mm3 (0.0-0.012); Nucleated Red Blood Cells Perc 0.0 % (0.0-0.2); Platelet Count Result 369 k/mm3 (150-375); Red Blood Count 3.44 M/mm3 (4.6-6.20); White Blood Count 10.6 K/mm3 (4.5-10.0)
[2025-03-15 05:47] LABS: Alanine Aminotransferase 26 U/L (6-50); Albumin Level 2.3 g/dL (3.5-5.1); Alkaline Phosphatase 74 U/L (38-126); Anion Gap 2 mmol/L (4-12); Aspartate Amino Transferase 47 U/L (17-59); Bilirubin,Total 0.3 mg/dL (0.2-1.3); Blood Urea Nitrogen 9 mg/dL (9-20); Calcium 7.4 mg/dL (8.4-10.2); Carbon Dioxide 27 mmol/L (22-30); Chloride 104 mmol/L (98-107); Estimated CRCL calculation 163 ml/min; Estimated Glomerular Filt Rate > 60; Glucose 70 mg/dL (65-110); Magnesium 1.9 mg/dL (1.6-2.3); Potassium 3.4 mmol/L (3.4-5.0); Sodium 133 mmol/L (137-145); Total Protein 5.8 g/dL (6.3-8.2)
[2025-03-15 06:13] LABS: Hypochromasia 2+; Microcytosis 1+ (NORMAL); Schistocytes None Seen; Target Cells Occasional
[2025-03-15] MEDS: ACETAMINOPHEN 500 MG TABLET 1000 MG PO ×5 (06:21→23:59)
[2025-03-15] MEDS: ATORVASTATIN 10 MG TABLET PO (09:17)
[2025-03-15] MEDS: FUROSEMIDE 20 MG TABLET PO (09:18)
[2025-03-15] MEDS: PANTOPRAZOLE 40 MG TABLET PO (09:18)
[2025-03-15] MEDS: FERROUS SULFATE 325 MG TABLET PO ×2 (09:18→16:43)
[2025-03-15] MEDS: APIXABAN 5 MG TABLET PO ×2 (09:18→21:01)
[2025-03-15] MEDS: LIDOCAINE 5% PATCH 2 PATCH TRANSDERM (09:37)
[2025-03-15] MEDS: oxyCODONE HCL (*CRX) 5 MG TAB IR PO (10:40)
--- NOTE | 2025-03-15 11:05 | P.PNIM_ITS ---
Progress Note: A&P Assessment and Plan (1) Cellulitis: Qualifiers: Laterality: left Site of cellulitis: extremity Site of cellulitis of extremity: lower extremity Qualified Code(s): L03.116 - Cellulitis of left lower limb Code(s): L03.90 - Cellulitis, unspecified Status: Acute Assessment and Plan: LLE with mild erythema and drainage, WBC of 16.4 * IV vanc, cefepime Flagyl * Wound culture pending * blood cultures NGTD * Lactic WNL * wound consulted follows O/P * keep legs elevated * wbc slowly improving * AM labs (2) Stasis dermatitis: Code(s): I87.2 - Venous insufficiency (chronic) (peripheral) Status: Acute Assessment and Plan: * Follows O/P with wound * See Above * wound nurse consult pending (3) Essential (primary) hypertension: Code(s): I10 - Essential (primary) hypertension Status: Acute Assessment and Plan: * continue Lisinopril * Monitor BP per unit protocol (4) Peripheral vascular disease: Code(s): I73.9 - Peripheral vascular disease, unspecified Status: Acute Assessment and Plan: * Continue Atorvastatin and eliquis (5) Personal history of pulmonary embolism: Code(s): Z86.711 - Personal history of pulmonary embolism Status: Acute Assessment and Plan: * Wagner childers * monitor H&H (6) Type 2 diabetes mellitus without complications: Code(s): E11.9 - Type 2 diabetes mellitus without complications Status: Acute Assessment and Plan: * Accuchcharlette DALES * SSI low dose * hold metformin * hold glipizide * hypoglycemia protocol * diabetic diet (7) Fall: Qualifiers: Encounter type: initial encounter Qualified Code(s): W19.XXXA - Unspecified fall, initial encounter Code(s): W19.XXXA - Unspecified fall, initial encounter Status: Acute Assessment and Plan: * PT/OT will likely need rehab placement * patient reports low back pain that is new since fall * x-rays of lumbar spine without acute fracture * adjust pain medications (8) Generalized weakness: Code(s): R53.1 - Weakness Status: Acute Assessment and Plan: * See Above (9) Anemia: Qualifiers: Anemia type: unspecified type Qualified Code(s): D64.9 - Anemia, unspecified Code(s): D64.9 - Anemia, unspecified Status: Acute Assessment and Plan: Hgb 8.9 no previous HX no evidence of active GIB but does have bleeding from coccyx excoriation * Monitor H&H * Iron panel pending * will continue Eliquis at this time due to HX of PE but may need to hold if Hgb drops (10) UTI (urinary tract infection): Code(s): N39.0 - Urinary tract infection, site not specified Status: Acute Assessment and Plan: UA with some suspicion of UTI Leukcytes+ and WBC no bacteria * On IV cefepime for cellulitis de-escalate if culture negative * culture negative, ruled out (11) Bacteremia: Code(s): R78.81 - Bacteremia Status: Acute Assessment and Plan: Patient's blood cultures x 2 positive for staph aureus f/u final ID and sensitivities repeat blood cultures ordered continue IV vancomycin and IV cefepime AM labs Subjective Date/time seen: 03/15/25 11:05 Interval history: Patient seen for a follow up visit. Patient sitting up in chair, in no acute distress. Patient reports his back pain is a little more controlled today. Patient had x-rays of the lumbar spine which did not show any acute fractures. Patient continues on lidocaine patches, PRN oxycodone, scheduled Tylenol. Add muscle relaxer scheduled. Patient participating with therapy. Patient continues on IV antibiotics for cellulitis of LLE. Wound nurse consult is pending. Blood cultures x 2 sets positive for staph aureus. Repeat blood cultures. Continue on IV vancomycin and IV cefepime. Review of Systems Review of Systems: All systems reviewed & are unremarkable except as noted in HPI and below Exam Const: General: comfortable and no acute distress Other: Pleasant chronically ill gentleman HENMT: Mouth: Yes moist mucous membranes Eyes: General: appearance normal, both eyes and all related structures Sclera: sclerae normal Pupils: Equal, round and reactive pupils present Neck: Neck: supple and no JVD Resp: Effort & Inspection: normal respiratory effort Auscultation: clear to auscultation bilaterally Cardio: Rate: tachycardic Rhythm: regular rhythm GI: Auscultation: normal bowel sounds Skin: General skin exam: dry skin, erythema (LLE ) and excoriation Other: Patient with significant excoriation to her abdominal area, dermatitis stasis, minimal drainage Neuro: Cranial nerves: Yes Equal, round and reactive pupils present Speech: normal speech Other: Unable to evaluate gait, pain with and movement to BLE Extrem: General: edema (RLE >LLE 2+) bilateral Psych: Mental Status: mental status grossly normal Affect: normal affect Objective Data Vital Signs Vital Signs: Vital Signs - 24 hr 03/14/25 11:20 03/14/25 12:00 03/14/25 14:00 Temperature 98 F Pulse Rate 79 81 Respiratory Rate 26 H Blood Pressure 98/46 L Pulse Oximetry 96 Oxygen Delivery Room Air 03/14/25 14:33 03/14/25 16:00 03/14/25 20:00 Temperature Pulse Rate 80 87 Respiratory Rate 22 H 18 Blood Pressure Pulse Oximetry 96 Oxygen Delivery Room Air 03/14/25 20:00 03/14/25 20:38 03/15/25 03:23 Temperature 97.9 F Pulse Rate 85 87 82 Respiratory Rate 18 Blood Pressure 120/65 Pulse Oximetry 96 Oxygen Delivery 03/15/25 04:00 03/15/25 06:00 Temperature 97.7 F Pulse Rate 77 73 Respiratory Rate 18 Blood Pressure 106/50 L Pulse Oximetry 92 Oxygen Delivery Intake/Output Intake/Output: Intake & Output 03/12/25 03/13/25 03/14/25 03/15/25 23:59 23:59 23:59 23:59 Intake Total 3270 2720 1330 Output Total 634 559 8796 Balance 2670 1820 230 Meds/Results Medications: Active Medications Generic Name Dose Route Start Last Admin Trade Name Freq PRN Reason Stop Dose Admin Acetaminophen 1,000 mg 03/14/25 13:30 03/15/25 06:21 Acetaminophen 500 Mg Tablet PO 1,000 mg Q6HR EJ Administration Apixaban 5 mg 03/13/25 21:00 03/15/25 09:18 Apixaban 5 Mg Tablet PO 5 mg Q12HR EJ Administration Atorvastatin Calcium 10 mg 03/13/25 09:00 03/15/25 09:17 Atorvastatin 10 Mg Tablet PO 10 mg DAILY EJ Administration Dextrose 12.5 gm 03/13/25 08:49 Dextrose 50% 25 Gm/50 Ml Syringe IV PUSH PRN PRN Hypoglycemia Protocol Ferrous Sulfate 325 mg 03/14/25 09:00 03/15/25 09:18 Ferrous Sulfate 325 Mg Tablet PO 325 mg BID EJ Administration Furosemide 20 mg 03/13/25 09:00 03/15/25 09:18 Furosemide 20 Mg Tablet PO 20 mg QAM EJ Administration Glucagon 1 mg 03/13/25 08:49 Glucagon For Inj 1 Mg Vial IM PRN PRN Hypoglycemia Protocol Glucose 15 gm 03/13/25 08:49 03/14/25 21:01 Glucose Oral Gel 15 Gm Of Glucse In 37.5 Gm Tube PO 15 gm PRN PRN Administration Hypoglycemia Protocol Metronidazole 500 mg in 100 mls @ 100 mls/hr 03/13/25 04:00 03/15/25 04:00 Flagyl 500 Mg/Iso Soln 100 Ml IVPB 100 mls/hr Q8H EJ Administration Cefepime HCl 2 gm/ Sodium 50 mls @ 100 mls/hr 03/13/25 04:00 03/15/25 04:00 Chloride IVPB 100 mls/hr Q12H EJ Administration Dextrose 1,000 mls @ 100 mls/hr 03/13/25 08:49 Dextrose 5% 1,000 Ml IVPB PRN PRN Hypoglycemia Protocol Vancomycin HCl 1,500 mg in 500 mls @ 250 mls/hr 03/14/25 17:00 03/15/25 09:24 Vancomycin 1,500 Mg/Ns 500 Ml IVPB 250 mls/hr Q8H EJ Administration Insulin Aspart 2 - 5 units 03/13/25 12:00 03/15/25 09:16 Insulin Aspart (*Bkc) 100 Units/Ml SUB-Q Not Given TIDWM [facility] Protocol Lidocaine 2 patch 03/14/25 09:00 03/15/25 09:37 Lidocaine 5% Patch TRANSDERM 2 patch DAILY EJ Administration Lisinopril 20 mg 03/13/25 21:00 03/14/25 21:49 Lisinopril 20 Mg Tablet PO 20 mg HS EJ Administration Ondansetron HCl 4 mg 03/13/25 08:49 Ondansetron Inj 4 Mg/2 Ml Vial IV PUSH Q6H PRN Nausea And Vomiting Oxycodone HCl 5 mg 03/14/25 13:14 03/15/25 10:40 Oxycodone Hcl (*Crx) 5 Mg Tab Ir PO 5 mg Q4H PRN Administration Pain Rated 7-10 Pantoprazole Sodium 40 mg 03/13/25 08:00 03/15/25 09:18 Pantoprazole 40 Mg Tablet PO 40 mg DAILY@0800 EJ Administration Radiology Results: ITS Impressions Elbow X-Ray 03/13/25 07:04 Impression: 1: No acute bone or joint abnormality. Chest X-Ray 03/13/25 07:05 IMPRESSION: 1: NO ACUTE CARDIOPULMONARY DISEASE. Tibia/Fibula X-Ray 03/13/25 07:06 Impression: 1: Mild-moderate polyarticular osteoarthritis. Lumbar Spine X-Ray 03/14/25 18:51 IMPRESSION: Normal lumbar spine. Labs Labs: Laboratory Results - last 24 hr 03/14/25 03/14/25 03/14/25 11:19 13:48 15:43 WBC RBC Hgb Hct MCV MCH MCHC RDW Plt Count MPV Immature Gran % (Auto) Neut % (Auto) Lymph % (Auto) [place] % (Auto) Eos % (Auto) Baso % (Auto) Lymph # (Auto) [place] # (Auto) Eos # (Auto) Baso # (Auto) Abs Immat Gran (auto) Absolute Neuts (auto) Absolute Nucleated RBC Band Neutrophils % Nucleated RBC % Platelet Estimate Hypochromasia Microcytosis Target Cells Schistocytes Sodium 133 L Potassium 3.4 Chloride 102 Carbon Dioxide 29 Anion Gap 2 L BUN 11 Creatinine 0.48 L Estim Creat Clear Calc 169 Estimated GFR > 60 Glucose 55 L* POC Capillary Glucose 71 Calcium 7.7 L Magnesium Total Bilirubin AST ALT Alkaline Phosphatase Total Protein Albumin Vancomycin Trough 10.1 03/14/25 03/14/25 03/14/25 16:36 21:01 21:28 WBC RBC Hgb Hct MCV MCH MCHC RDW Plt Count MPV Immature Gran % (Auto) Neut % (Auto) Lymph % (Auto) [place] % (Auto) Eos % (Auto) Baso % (Auto) Lymph # (Auto) [place] # (Auto) Eos # (Auto) Baso # (Auto) Abs Immat Gran (auto) Absolute Neuts (auto) Absolute Nucleated RBC Band Neutrophils % Nucleated RBC % Platelet Estimate Hypochromasia Microcytosis Target Cells Schistocytes Sodium Potassium Chloride Carbon Dioxide Anion Gap BUN Creatinine Estim Creat Clear Calc Estimated GFR Glucose POC Capillary Glucose 64 L 67 69 Calcium Magnesium Total Bilirubin AST ALT Alkaline Phosphatase Total Protein Albumin Vancomycin Trough 03/15/25 03/15/25 03/15/25 01:01 05:28 07:30 WBC 10.6 H RBC 3.44 L Hgb 7.8 L Hct 25.5 L MCV 74.1 L MCH 22.7 L MCHC 30.6 L RDW 17.4 H Plt Count 369 MPV 8.7 Immature Gran % (Auto) 0.8 H Neut % (Auto) 73.2 H Lymph % (Auto) 13.4 L [place] % (Auto) 8.7 H Eos % (Auto) 3.4 Baso % (Auto) 0.5 Lymph # (Auto) 1.42 [place] # (Auto) 0.9 H Eos # (Auto) 0.4 H Baso # (Auto) 0.1 Abs Immat Gran (auto) 0.08 H Absolute Neuts (auto) 7.8 H Absolute Nucleated RBC 0.000 Band Neutrophils % Not Reportable Nucleated RBC % 0.0 Platelet Estimate Adequate Hypochromasia 2+ Microcytosis 1+ Target Cells Occasional Schistocytes None seen Sodium 133 L Potassium 3.4 Chloride 104 Carbon Dioxide 27 Anion Gap 2 L BUN 9 Creatinine 0.50 L Estim Creat Clear Calc 163 Estimated GFR > 60 Glucose 70 POC Capillary Glucose 75 67 Calcium 7.4 L Magnesium 1.9 Total Bilirubin 0.3 AST 47 ALT 26 Alkaline Phosphatase 74 Total Protein 5.8 L Albumin 2.3 L Vancomycin Trough 03/15/25 08:19 WBC RBC Hgb Hct MCV MCH MCHC RDW Plt Count MPV Immature Gran % (Auto) Neut % (Auto) Lymph % (Auto) [place] % (Auto) Eos % (Auto) Baso % (Auto) Lymph # (Auto) [place] # (Auto) Eos # (Auto) Baso # (Auto) Abs Immat Gran (auto) Absolute Neuts (auto) Absolute Nucleated RBC Band Neutrophils % Nucleated RBC % Platelet Estimate Hypochromasia Microcytosis Target Cells Schistocytes Sodium Potassium Chloride Carbon Dioxide Anion Gap BUN Creatinine Estim Creat Clear Calc Estimated GFR Glucose POC Capillary Glucose 111 H Calcium Magnesium Total Bilirubin AST ALT Alkaline Phosphatase Total Protein Albumin Vancomycin Trough Quality VTE Prophylaxis VTE prophylaxis: pharmacologic ordered
--- NOTE | 2025-03-15 19:15 | PC.NURSE ---
This RN, Marie Elizalde, has reviewed assessment documentation by KAM Juan, from [id number] 03/15/25 and agree with the findings.
[2025-03-16] VITALS (10 sets, daily range): BP systolic 132–140; BP diastolic 57–59; PULSE 73–88; RESP 18; TEMP 36.4–36.6; O2SAT 95–97
[2025-03-16] MEDS: CEFEPIME 2 GM in SODIUM CHLORIDE 0.9% IV 50 ML 100 ML IVPB ×2 (04:21→16:47)
[2025-03-16] MEDS: metroNIDAZOLE 500 MG/ISO 100ML 500 MG/100 ML BAG 100 MG IVPB ×3 (04:48→20:47)
[2025-03-16] MEDS: ACETAMINOPHEN 500 MG TABLET 1000 MG PO ×3 (05:49→17:24)
[2025-03-16 06:10] LABS: Hematocrit 27.0 % (42.0-52.0); Hemoglobin 8.1 g/dL (14.0-18.0); Immature Granulocyte Percent A 0.8 % (0-0.5); Lymphocytes Absolute Auto 1.53 K/mm3 (0.9-3.2); Mean Corpuscular HGB Conc 30.0 g/dl (32-36); Mean Corpuscular Hemoglobin 22.6 pg (26-34); Mean Corpuscular Volume 75.2 fl (80-100); Nucleated Red Blood Cells Absolute Auto 0.000 K/mm3 (0.0-0.012); Nucleated Red Blood Cells Perc 0.0 % (0.0-0.2); Platelet Count Result 413 k/mm3 (150-375); Red Blood Count 3.59 M/mm3 (4.6-6.20); White Blood Count 9.5 K/mm3 (4.5-10.0)
[2025-03-16 06:50] LABS: Alanine Aminotransferase 22 U/L (6-50); Albumin Level 2.3 g/dL (3.5-5.1); Alkaline Phosphatase 79 U/L (38-126); Anion Gap 3 mmol/L (4-12); Aspartate Amino Transferase 33 U/L (17-59); Bilirubin,Total 0.3 mg/dL (0.2-1.3); Blood Urea Nitrogen 8 mg/dL (9-20); Calcium 7.6 mg/dL (8.4-10.2); Carbon Dioxide 29 mmol/L (22-30); Chloride 103 mmol/L (98-107); Estimated CRCL calculation 160 ml/min; Estimated Glomerular Filt Rate > 60; Glucose 88 mg/dL (65-110); Magnesium 2.0 mg/dL (1.6-2.3); Potassium 3.2 mmol/L (3.4-5.0); Sodium 135 mmol/L (137-145); Total Protein 6.0 g/dL (6.3-8.2)
--- NOTE | 2025-03-16 07:58 | P.PNIM_ITS ---
Progress Note: A&P Assessment and Plan (1) Cellulitis: Qualifiers: Laterality: left Site of cellulitis: extremity Site of cellulitis of extremity: lower extremity Qualified Code(s): L03.116 - Cellulitis of left lower limb Code(s): L03.90 - Cellulitis, unspecified Status: Acute Assessment and Plan: LLE with mild erythema and drainage, WBC of 16.4 * IV vanc, cefepime Flagyl * Wound culture pending * blood cultures NGTD * Lactic WNL * wound consulted follows O/P * keep legs elevated * wbc slowly improving * AM labs 03/16: LLE appears to have decreased erythema per marker outline, mildly weepy to LLE, TTP -WBC 10.6-->9.5 overnight, now WDL -WC pending, prelim gram neg bacilli, second bottle pending -BC redraw yesterday due to both growing staph aureus -Wound team with orders for silver gel and cover with dressing if areas open (2) Stasis dermatitis: Code(s): I87.2 - Venous insufficiency (chronic) (peripheral) Status: Acute Assessment and Plan: * Follows O/P with wound * See Above * wound nurse consult (3) Essential (primary) hypertension: Code(s): I10 - Essential (primary) hypertension Status: Acute Assessment and Plan: * continue Lisinopril * Monitor BP per unit protocol (4) Peripheral vascular disease: Code(s): I73.9 - Peripheral vascular disease, unspecified Status: Acute Assessment and Plan: * Continue Atorvastatin and eliquis 03/16: Per pt, he goes to the outpt wound clinic as needed, last time he went was around x1 month ago (5) Personal history of pulmonary embolism: Code(s): Z86.711 - Personal history of pulmonary embolism Status: Acute Assessment and Plan: * Continue eliquis * monitor H&H 03/16: Per pt, x2 sep occasions, denies DVT hx. (6) Type 2 diabetes mellitus without complications: Code(s): E11.9 - Type 2 diabetes mellitus without complications Status: Acute Assessment and Plan: * Accuchecks ACHS * SSI low dose * hold metformin * hold glipizide * hypoglycemia protocol * diabetic diet 03/15: FBS 88 today, will continue to monitor (7) Fall: Qualifiers: Encounter type: initial encounter Qualified Code(s): W19.XXXA - Unspecified fall, initial encounter Code(s): W19.XXXA - Unspecified fall, initial encounter Status: Acute Assessment and Plan: * PT/OT will likely need rehab placement * patient reports low back pain that is new since fall * x-rays of lumbar spine without acute fracture * adjust pain medications 03/16: Denies pain today. (8) Generalized weakness: Code(s): R53.1 - Weakness Status: Acute Assessment and Plan: * See Above (9) Anemia: Qualifiers: Anemia type: unspecified type Qualified Code(s): D64.9 - Anemia, unspecified Code(s): D64.9 - Anemia, unspecified Status: Acute Assessment and Plan: Hgb 8.9 no previous HX no evidence of active GIB but does have bleeding from coccyx excoriation * Monitor H&H * Iron panel pending * will continue Eliquis at this time due to HX of PE but may need to hold if Hgb drops 03/16: HGB 7.1-->8.1 overnight, continue to trend -No active bleeding -Iron % 8 today, will give Venofer 500 x1 dose today, repeat tomorrow (10) UTI (urinary tract infection): Code(s): N39.0 - Urinary tract infection, site not specified Status: Acute Assessment and Plan: UA with some suspicion of UTI Leukcytes+ and WBC no bacteria * On IV cefepime for cellulitis de-escalate if culture negative * culture negative, ruled out 03/15: UC negative, resolved. (11) Bacteremia: Code(s): R78.81 - Bacteremia Status: Acute Assessment and Plan: Patient's blood cultures x 2 positive for staph aureus f/u final ID and sensitivities repeat blood cultures ordered continue IV vancomycin and IV cefepime AM labs 03/16: New BC obtained 03/15, pending (12) Hypokalemia: Code(s): E87.6 - Hypokalemia Status: Acute Assessment and Plan: 03/15: K 3.2 with AM labs -40 meq IV given 03/14 -Will continue to replenish today with 40meq IV, recheck tomorrow AM -Appetite has been limited due to Mounjaro started in October 2024. Encouraged him to continue to eat and drink while in hospital. Plan Keep treating cellulitis, pending WC and BC. Venofer second dose tomorrow. Time Spent With Patient Time: 35 Subjective Date/time seen: 03/16/25 0794 Interval history: Patient seen for a follow up visit. Patient lying comfortably in bed. Patient continues on IV antibiotics for cellulitis of LLE. Blood cultures x 2 sets posi tive for staph aureus. Repeat blood cultures. Updated pt on plan. Pt states that his appetite has been decreased since October when he started Monjaro injections. Pt denies any additional sx, LLE pain only when touched. Review of Systems Review of Systems: All systems reviewed & are unremarkable except as noted in HPI and below Exam Const: General: comfortable and no acute distress Other: Pleasant chronically ill gentleman HENMT: Mouth: Yes moist mucous membranes Eyes: General: appearance normal, both eyes and all related structures Sclera: sclerae normal Pupils: Equal, round and reactive pupils present Neck: Neck: supple and no JVD Resp: Effort & Inspection: normal respiratory effort Auscultation: clear to auscultation bilaterally Cardio: Rate: tachycardic Rhythm: regular rhythm GI: Auscultation: normal bowel sounds Skin: General skin exam: dry skin, erythema (LLE ) and excoriation Other: Patient with significant excoriation to his abdominal area, dermatitis stasis, minimal drainage Neuro: Cranial nerves: Yes Equal, round and reactive pupils present Speech: normal speech Other: Unable to evaluate gait, pain with and movement to BLE Extrem: General: edema (RLE >LLE 2+) bilateral Other: BLE with erythema and edema, erythema outlined in marker. LLE with breakdown and healing wound with scan to mid swenson lateral aspect Psych: Mental Status: mental status grossly normal Affect: normal affect Objective Data Vital Signs Vital Signs: Vital Signs - 24 hr 03/15/25 08:00 03/15/25 08:00 03/15/25 12:00 Temperature Pulse Rate 87 76 Respiratory Rate Blood Pressure Pulse Oximetry Oxygen Delivery Room Air 03/15/25 14:00 03/15/25 16:02 03/15/25 20:00 Temperature 98.7 F Pulse Rate 79 80 76 Respiratory Rate 18 Blood Pressure 119/54 L Pulse Oximetry 97 Oxygen Delivery 03/15/25 21:55 03/16/25 00:00 03/16/25 04:00 Temperature 98.0 F Pulse Rate 84 88 75 Respiratory Rate 18 Blood Pressure 137/58 L Pulse Oximetry 98 Oxygen Delivery 03/16/25 05:02 Temperature 97.6 F Pulse Rate 78 Respiratory Rate 18 Blood Pressure 133/59 L Pulse Oximetry 95 Oxygen Delivery Intake/Output Intake/Output: Intake & Output 03/13/25 03/14/25 03/15/25 03/16/25 23:59 23:59 23:59 23:59 Intake Total 3270 2720 3210 240 Output Total 184 292 1866 1350 Balance 2670 1820 1760 -1110 Meds/Results Medications: Active Medications Generic Name Dose Route Start Last Admin Trade Name Freq PRN Reason Stop Dose Admin Acetaminophen 1,000 mg 03/14/25 13:30 03/16/25 05:49 Acetaminophen 500 Mg Tablet PO 1,000 mg Q6HR EJ Administration Apixaban 5 mg 03/13/25 21:00 03/15/25 21:01 Apixaban 5 Mg Tablet PO 5 mg Q12HR EJ Administration Atorvastatin Calcium 10 mg 03/13/25 09:00 03/15/25 09:17 Atorvastatin 10 Mg Tablet PO 10 mg DAILY EJ Administration Dextrose 12.5 gm 03/13/25 08:49 Dextrose 50% 25 Gm/50 Ml Syringe IV PUSH PRN PRN Hypoglycemia Protocol Ferrous Sulfate 325 mg 03/14/25 09:00 03/15/25 16:43 Ferrous Sulfate 325 Mg Tablet PO 325 mg BID EJ Administration Furosemide 20 mg 03/13/25 09:00 03/15/25 09:18 Furosemide 20 Mg Tablet PO 20 mg QAM EJ Administration Glucagon 1 mg 03/13/25 08:49 Glucagon For Inj 1 Mg Vial IM PRN PRN Hypoglycemia Protocol Glucose 15 gm 03/13/25 08:49 03/14/25 21:01 Glucose Oral Gel 15 Gm Of Glucse In 37.5 Gm Tube PO 15 gm PRN PRN Administration Hypoglycemia Protocol Metronidazole 500 mg in 100 mls @ 100 mls/hr 03/13/25 04:00 03/16/25 04:48 Flagyl 500 Mg/Iso Soln 100 Ml IVPB 100 mls/hr Q8H EJ Administration Cefepime HCl 2 gm/ Sodium 50 mls @ 100 mls/hr 03/13/25 04:00 03/16/25 04:21 Chloride IVPB 100 mls/hr Q12H EJ Administration Dextrose 1,000 mls @ 100 mls/hr 03/13/25 08:49 Dextrose 5% 1,000 Ml IVPB PRN PRN Hypoglycemia Protocol Vancomycin HCl 1,500 mg in 500 mls @ 250 mls/hr 03/14/25 17:00 03/16/25 00:00 Vancomycin 1,500 Mg/Ns 500 Ml IVPB 250 mls/hr Q8H EJ Administration Insulin Aspart 2 - 5 units 03/13/25 12:00 03/15/25 17:16 Insulin Aspart (*Bkc) 100 Units/Ml SUB-Q Not Given TIDWM EJ Protocol Lidocaine 2 patch 03/14/25 09:00 03/15/25 09:37 Lidocaine 5% Patch TRANSDERM 2 patch DAILY EJ Administration Lisinopril 20 mg 03/13/25 21:00 03/15/25 21:01 Lisinopril 20 Mg Tablet PO 20 mg HS EJ Administration Ondansetron HCl 4 mg 03/13/25 08:49 Ondansetron Inj 4 Mg/2 Ml Vial IV PUSH Q6H PRN Nausea And Vomiting Oxycodone HCl 5 mg 03/14/25 13:14 03/15/25 10:40 Oxycodone Hcl (*Crx) 5 Mg Tab Ir PO 5 mg Q4H PRN Administration Pain Rated 7-10 Pantoprazole Sodium 40 mg 03/13/25 08:00 03/15/25 09:18 Pantoprazole 40 Mg Tablet PO 40 mg DAILY@0800 EJ Administration Radiology Results: ITS Impressions Elbow X-Ray 03/13/25 07:04 Impression: 1: No acute bone or joint abnormality. Chest X-Ray 03/13/25 07:05 IMPRESSION: 1: NO ACUTE CARDIOPULMONARY DISEASE. Tibia/Fibula X-Ray 03/13/25 07:06 Impression: 1: Mild-moderate polyarticular osteoarthritis. Lumbar Spine X-Ray 03/14/25 18:51 IMPRESSION: Normal lumbar spine. Labs Labs: Laboratory Results - last 24 hr 03/15/25 03/15/25 03/15/25 07:30 08:19 11:33 WBC RBC Hgb Hct MCV MCH MCHC RDW Plt Count MPV Immature Gran % (Auto) Neut % (Auto) Lymph % (Auto) [place] % (Auto) Eos % (Auto) Baso % (Auto) Lymph # (Auto) [place] # (Auto) Eos # (Auto) Baso # (Auto) Abs Immat Gran (auto) Absolute Neuts (auto) Absolute Nucleated RBC Nucleated RBC % Sodium Potassium Chloride Carbon Dioxide Anion Gap BUN Creatinine Estim Creat Clear Calc Estimated GFR Glucose POC Capillary Glucose 67 111 H 125 H Calcium Magnesium Total Bilirubin AST ALT Alkaline Phosphatase Total Protein Albumin Vancomycin Trough 03/15/25 03/15/25 03/15/25 16:05 16:38 21:53 WBC RBC Hgb Hct MCV MCH MCHC RDW Plt Count MPV Immature Gran % (Auto) Neut % (Auto) Lymph % (Auto) [place] % (Auto) Eos % (Auto) Baso % (Auto) Lymph # (Auto) [place] # (Auto) Eos # (Auto) Baso # (Auto) Abs Immat Gran (auto) Absolute Neuts (auto) Absolute Nucleated RBC Nucleated RBC % Sodium Potassium Chloride Carbon Dioxide Anion Gap BUN Creatinine Estim Creat Clear Calc Estimated GFR Glucose POC Capillary Glucose 97 144 H Calcium Magnesium Total Bilirubin AST ALT Alkaline Phosphatase Total Protein Albumin Vancomycin Trough 16.6 03/16/25 03/16/25 05:36 07:27 WBC 9.5 RBC 3.59 L Hgb 8.1 L Hct 27.0 L MCV 75.2 L MCH 22.6 L MCHC 30.0 L RDW 17.5 H Plt Count 413 H MPV 9.0 Immature Gran % (Auto) 0.8 H Neut % (Auto) 70.9 Lymph % (Auto) 16.0 L [place] % (Auto) 7.7 Eos % (Auto) 4.1 Baso % (Auto) 0.5 Lymph # (Auto) 1.53 [place] # (Auto) 0.7 H Eos # (Auto) 0.4 H Baso # (Auto) 0.1 Abs Immat Gran (auto) 0.08 H Absolute Neuts (auto) 6.8 H Absolute Nucleated RBC 0.000 Nucleated RBC % 0.0 Sodium 135 L Potassium 3.2 L Chloride 103 Carbon Dioxide 29 Anion Gap 3 L BUN 8 L Creatinine 0.51 L Estim Creat Clear Calc 160 Estimated GFR > 60 Glucose 88 POC Capillary Glucose 99 Calcium 7.6 L Magnesium 2.0 Total Bilirubin 0.3 AST 33 ALT 22 Alkaline Phosphatase 79 Total Protein 6.0 L Albumin 2.3 L Vancomycin Trough Quality VTE Prophylaxis VTE prophylaxis: pharmacologic ordered
[2025-03-16] MEDS: ATORVASTATIN 10 MG TABLET PO (08:23)
[2025-03-16] MEDS: PANTOPRAZOLE 40 MG TABLET PO (08:23)
[2025-03-16] MEDS: FUROSEMIDE 20 MG TABLET PO (08:23)
[2025-03-16] MEDS: APIXABAN 5 MG TABLET PO ×2 (08:23→20:47)
[2025-03-16] MEDS: LIDOCAINE 5% PATCH 2 PATCH TRANSDERM (08:24)
[2025-03-16] MEDS: VANCOMYCIN 1,500 MG/NS 500 ML 1,500 MG/500 ML BAG 250 MG IVPB ×2 (08:24)
[2025-03-16] MEDS: POTASSIUM CHLORIDE INJ 40 MEQ in SODIUM CHLORIDE 0.9% IV 500 ML 100 MEQ IVPB (09:16)
[2025-03-16] MEDS: IRON SUCROSE COMPLEX 400 MG, IRON SUCROSE COMPLEX 100 MG in SODIUM CHLORIDE 0.9% IV 250 ML 78.57 MG IVPB (10:59)
[2025-03-16] MEDS: oxyCODONE HCL (*CRX) 5 MG TAB IR PO (14:33)
[2025-03-16] MEDS: VANCOMYCIN 1,750 MG/NS 500 ML 1,750 MG/500 ML BAG 250 MG IVPB (17:44)
--- NOTE | 2025-03-16 18:28 | PC.NURSE ---
This RN, Marie Elizalde, has reviewed documentation by Bernie Tai RNLP, for 03/16/25 and agree with the findings.
[2025-03-17] VITALS (9 sets, daily range): BP systolic 124–137; BP diastolic 50–61; PULSE 71–81; RESP 18–20; TEMP 36.2–36.9; O2SAT 96
--- NOTE | 2025-03-17 | ECHO_ITS ---
Patient Info Name: Bernabe Marx Age: 69 years : 1955 Gender: Male Ht: 72 in Wt: 274 lbs BSA: 2.56 m2 HR: 76 bpm BP: 124 / 50 mmHg Technical Quality: Good Exam Date: 03/17/2025 10:47 AM Patient Status: I Admit Date: 03/13/2025 Exam Type: CA echo dop color flow w con Complete two-dimensional, color flow and Doppler transthoracic echocardiogram is performed with contrast to opacify the left ventricle and to improve the deliniation of the left ventricle endocardial borders. Staff Referring Physician: Nuria Ibanez Cruise Counselor: Leslye Escobedo Attending Provider: Dinorah Bowles DO Contrast/Agitated Saline Contrast/Ag. Saline: Definity Amount: 2.00 ml Summary 1. Normal LV size, [id number] LVH, normal LV systolic function, ejection fraction 65-70%. Normal diastolic function. Normal RV size and systolic function. Mild left enlargement. No significant valvular abnormality. No significant pericardial effusion. Left Ventricle Left ventricular chamber dimension is mildly enlarged. There is moderately increased left ventricular wall thickness. The left ventricular diastolic function is normal. Right Ventricle Right ventricular chamber dimension is normal. Right ventricular systolic function is normal. Left Atria Left atrial chamber dimension is mildly enlarged. Right Atria Right atrial chamber dimension is normal. Aortic Valve The aortic valve is normal. There is no aortic valve stenosis. Pulmonic Valve The pulmonic valve is normal. Mitral Valve The mitral valve has normal leaflets. There is no mitral valve regurgitation. Tricuspid Valve The tricuspid valve leaflets are normal. There is trace tricuspid valve regurgitation. Pericardium/Pleural The pericardium appears normal. Aorta The aortic root size at the sinus of Valsalva is normal. Left Ventricular Outflow Tract Name Value Normal LVOT 2D LVOT Diameter 2.0 cm LVOT Doppler LVOT Peak Velocity 142 cm/s LVOT Peak Gradient 8 mmHg LVOT Mean Gradient 5 mmHg LVOT VTI 36 cm LVOT Stroke Volume 115 ml LVOT CO 8.8 l/min LVOT CI 3.4 l/min/m2 Pulmonic Valve Name Value Normal RVOT Doppler RVOT Peak Velocity 110 cm/s RVOT Peak Gradient 5 mmHg PV Doppler PV Peak Velocity 137 cm/s PV Peak Gradient 8 mmHg Mitral Valve Name Value Normal MV Diastolic Function MV E Peak Velocity 88 cm/s MV A Peak Velocity 84 cm/s MV E/A 1.0 MV Decel Time (PW) 162 ms Tricuspid Valve Name Value Normal Estimated PAP/RSVP RA Pressure 5 mmHg <=5 Aortic Valve Name Value Normal AV Doppler AV Peak Velocity 192 cm/s AV Peak Gradient 15 mmHg AV Area (Cont Eq Jose F) 2.4 cm2 AV DI (Jose F) 0.74 AV Regurgitation 2D LVOT Area 3.2 cm2 Ventricles Name Value Normal LV Dimensions 2D/MM IVS Diastolic Thickness (2D) 1.3 cm 0.6-1.0 LVID Diastole (2D) 5.6 cm 4.2-5.8 LVIW Diastolic Thickness (2D) 1.1 cm 0.6-1.0 LVID Systole (2D) 3.6 cm 2.5-4.0 LVOT Diameter 2.0 cm LV Mass (2D Cubed) 273.88 g 88.00-224.00 LV Mass Index (2D Cubed) 107 g/m2 49-115 Relative Wall Thickness (2D) 0.39 <=0.42 LV Fractional Shortening/Ejection Fraction 2D/MM LV Fractional Shortening (2D) 36 % 25-43 LV EF (2D Teichholz) 65 % LV Diastolic Volume (4C MOD) 191 ml LV EF (4C MOD) 64 % LV Diastolic Volume (2C MOD) 212 ml LV EF (2C MOD) 66 % LV Diastolic Volume (BP MOD) 210 ml 62-150 LV Diastolic Volume Index (BP MOD) 82 ml/m2 34-74 LV Systolic Volume (BP MOD) 70 ml 21-61 LV Systolic Volume Index (BP MOD) 28 ml/m2 11-31 LV EF (BP MOD) 66 % 52-72 LV Diastolic Length (4C) 9.5 cm LV Systolic Length (4C) 7.3 cm LV Stroke Volume (4C MOD) 123 ml Atria Name Value Normal LA Dimensions LA Volume (4C A-L) 68 ml LA Volume (BP A-L) 74 ml RA Dimensions RA Systolic [place] Length (4C) 5.4 cm 2.1-2.7 RA Area (4C) 21.9 cm2 <=18.0 Report Signatures
[2025-03-17] MEDS: VANCOMYCIN 1,750 MG/NS 500 ML 1,750 MG/500 ML BAG 250 MG IVPB ×2 (01:55→09:16)
[2025-03-17] MEDS: CEFEPIME 2 GM in SODIUM CHLORIDE 0.9% IV 50 ML 100 ML IVPB (05:12)
[2025-03-17] MEDS: metroNIDAZOLE 500 MG/ISO 100ML 500 MG/100 ML BAG 100 MG IVPB (05:15)
[2025-03-17 06:04] LABS: Hematocrit 27.2 % (42.0-52.0); Hemoglobin 8.3 g/dL (14.0-18.0); Immature Granulocyte Percent A 0.7 % (0-0.5); Lymphocytes Absolute Auto 1.69 K/mm3 (0.9-3.2); Mean Corpuscular HGB Conc 30.5 g/dl (32-36); Mean Corpuscular Hemoglobin 22.5 pg (26-34); Mean Corpuscular Volume 73.7 fl (80-100); Nucleated Red Blood Cells Absolute Auto 0.000 K/mm3 (0.0-0.012); Nucleated Red Blood Cells Perc 0.0 % (0.0-0.2); Platelet Count Result 453 k/mm3 (150-375); Red Blood Count 3.69 M/mm3 (4.6-6.20); White Blood Count 10.3 K/mm3 (4.5-10.0)
[2025-03-17 06:37] LABS: Polychromasia 1+
[2025-03-17 06:38] LABS: Burr Cells 2+; Microcytosis 2+ (NORMAL); Schistocytes None Seen; Target Cells Occasional
[2025-03-17 06:44] LABS: Alanine Aminotransferase 18 U/L (6-50); Albumin Level 2.3 g/dL (3.5-5.1); Alkaline Phosphatase 83 U/L (38-126); Anion Gap 3 mmol/L (4-12); Aspartate Amino Transferase 25 U/L (17-59); Bilirubin,Total 0.2 mg/dL (0.2-1.3); Blood Urea Nitrogen 6 mg/dL (9-20); Calcium 7.7 mg/dL (8.4-10.2); Carbon Dioxide 27 mmol/L (22-30); Chloride 105 mmol/L (98-107); Estimated CRCL calculation 182 ml/min; Estimated Glomerular Filt Rate > 60; Glucose 99 mg/dL (65-110); Magnesium 2.0 mg/dL (1.6-2.3); Potassium 3.3 mmol/L (3.4-5.0); Sodium 135 mmol/L (137-145); Total Protein 5.9 g/dL (6.3-8.2)
[2025-03-17] MEDS: FUROSEMIDE 20 MG TABLET PO (08:36)
[2025-03-17] MEDS: PANTOPRAZOLE 40 MG TABLET PO (08:36)
[2025-03-17] MEDS: ATORVASTATIN 10 MG TABLET PO (08:36)
[2025-03-17] MEDS: IRON SUCROSE COMPLEX 400 MG, IRON SUCROSE COMPLEX 100 MG in SODIUM CHLORIDE 0.9% IV 250 ML 78.57 MG IVPB (08:36)
[2025-03-17] MEDS: APIXABAN 5 MG TABLET PO ×2 (08:36→21:36)
[2025-03-17] MEDS: LIDOCAINE 5% PATCH 2 PATCH TRANSDERM (08:37)
--- NOTE | 2025-03-17 08:59 | P.PNIM_ITS ---
Progress Note: A&P Assessment and Plan (1) Cellulitis: Qualifiers: Laterality: left Site of cellulitis: extremity Site of cellulitis of extremity: lower extremity Qualified Code(s): L03.116 - Cellulitis of left lower limb Code(s): L03.90 - Cellulitis, unspecified Status: Acute Assessment and Plan: LLE with mild erythema and drainage, WBC of 16.4 * IV vanc, cefepime Flagyl * Wound culture pending * blood cultures NGTD * Lactic WNL * wound consulted follows O/P * keep legs elevated * wbc slowly improving * AM labs 03/16: LLE appears to have decreased erythema per marker outline, mildly weepy to LLE, TTP -WBC 10.6-->9.5 overnight, now WDL -WC pending, prelim gram neg bacilli, second bottle pending -BC redraw yesterday due to both growing staph aureus -Wound team with orders for silver gel and cover with dressing if areas open 03/17: LLE appears similar today as it did yesterday -WBC with minimal increase overnight, 9.5-->10.3 -WC resulted with morganella morganii, started ancef IV and PO bactrim abx today, recs from ID. ID to see Monday 03/19. -->Vanc, cefepime, and flagyl D/C (2) Stasis dermatitis: Code(s): I87.2 - Venous insufficiency (chronic) (peripheral) Status: Acute Assessment and Plan: * Follows O/P with wound * See Above * wound nurse consult (3) Essential (primary) hypertension: Code(s): I10 - Essential (primary) hypertension Status: Acute Assessment and Plan: * continue Lisinopril * Monitor BP per unit protocol (4) Peripheral vascular disease: Code(s): I73.9 - Peripheral vascular disease, unspecified Status: Acute Assessment and Plan: * Continue Atorvastatin and eliquis 03/16: Per pt, he goes to the outpt wound clinic as needed, last time he went was around x1 month ago (5) Personal history of pulmonary embolism: Code(s): Z86.711 - Personal history of pulmonary embolism Status: Acute Assessment and Plan: * Continue eliquis * monitor H&H 03/16: Per pt, x2 sep occasions, denies DVT hx. (6) Type 2 diabetes mellitus without complications: Code(s): E11.9 - Type 2 diabetes mellitus without complications Status: Acute Assessment and Plan: * Accuchecks ACHS * SSI low dose * hold metformin * hold glipizide * hypoglycemia protocol * diabetic diet 03/15: FBS 88 today, will continue to monitor (7) Fall: Qualifiers: Encounter type: initial encounter Qualified Code(s): W19.XXXA - Unspecified fall, initial encounter Code(s): W19.XXXA - Unspecified fall, initial encounter Status: Acute Assessment and Plan: * PT/OT will likely need rehab placement * patient reports low back pain that is new since fall * x-rays of lumbar spine without acute fracture * adjust pain medications 03/16: Denies pain today. (8) Generalized weakness: Code(s): R53.1 - Weakness Status: Acute Assessment and Plan: * See Above (9) Anemia: Qualifiers: Anemia type: unspecified type Qualified Code(s): D64.9 - Anemia, unspecified Code(s): D64.9 - Anemia, unspecified Status: Acute Assessment and Plan: Hgb 8.9 no previous HX no evidence of active GIB but does have bleeding from coccyx excoriation * Monitor H&H * Iron panel pending * will continue Eliquis at this time due to HX of PE but may need to hold if Hgb drops 03/16: HGB 7.1-->8.1 overnight, continue to trend -No active bleeding -Iron % 8 today, will give Venofer 500 x1 dose today, repeat tomorrow 03/17: Second veofer given today, hgb remains stable (10) UTI (urinary tract infection): Code(s): N39.0 - Urinary tract infection, site not specified Status: Acute Assessment and Plan: UA with some suspicion of UTI Leukcytes+ and WBC no bacteria * On IV cefepime for cellulitis de-escalate if culture negative * culture negative, ruled out 03/15: UC negative, resolved. (11) Bacteremia: Code(s): R78.81 - Bacteremia Status: Acute Assessment and Plan: Patient's blood cultures x 2 positive for staph aureus f/u final ID and sensitivities repeat blood cultures ordered continue IV vancomycin and IV cefepime AM labs 03/16: New BC obtained 03/15, pending 03/17: Echo ordered today -Spoke to Dr. Cadena (ID) with updated WC results of morganella morganii with MSSA bacteremia, he recommended discontinuing the vanc, cefepime, and flagyl and started ancef 2g q8h and PO bactrim Echo results: Summary 1. Normal LV size, [id number] LVH, normal LV systolic function, ejection fraction 65-70%. Normal diastolic function. Normal RV size and systolic function. Mild left enlargement. No significant valvular abnormality. No significant pericardial effusion. (12) Hypokalemia: Code(s): E87.6 - Hypokalemia Status: Acute Assessment and Plan: 03/15: K 3.2 with AM labs -40 meq IV given 03/14 -Will continue to replenish today with 40meq IV, recheck tomorrow AM -Appetite has been limited due to Mounjaro started in October 2024. Encouraged him to continue to eat and drink while in hospital. 03/16: K 3.3 with AM labs -Pt on furosemide 20mg PO daily -K 40meq PO BID started today Plan Keep treating cellulitis & bacteremia with new abx, pending repeat BC. Pending SNF placement ([facility]) Time Spent With Patient Time: 35 Subjective Date/time seen: 03/17/25 1048 Interval history: Patient lying comfortably in bed having an echo performed. Patient continues on IV antibiotics for cellulitis of LLE and bacteremia but changed today with help of ID due to positive WC result. Updated pt on plan. Pt denies any additional sx. Review of Systems Review of Systems: All systems reviewed & are unremarkable except as noted in HPI and below Exam Const: General: comfortable and no acute distress Other: Pleasant chronically ill gentleman HENMT: Mouth: Yes moist mucous membranes Eyes: General: appearance normal, both eyes and all related structures Sclera: sclerae normal Pupils: Equal, round and reactive pupils present Neck: Neck: supple and no JVD Resp: Effort & Inspection: normal respiratory effort Auscultation: clear to auscultation bilaterally Cardio: Rhythm: regular rhythm GI: Auscultation: normal bowel sounds Skin: General skin exam: dry skin, erythema (LLE ) and excoriation Other: Patient with significant excoriation to his abdominal area, dermatitis stasis, minimal drainage Neuro: Cranial nerves: Yes Equal, round and reactive pupils present Speech: normal speech Other: Unable to evaluate gait, pain with and movement to BLE Extrem: General: edema (RLE >LLE 2+) bilateral Other: BLE with erythema and edema (edema R>L), erythema outlined in marker. LLE with breakdown and healing wound with scan to mid swenson lateral aspect Psych: Mental Status: mental status grossly normal Affect: normal affect Objective Data Vital Signs Vital Signs: Vital Signs - 24 hr 03/16/25 12:00 03/16/25 14:00 03/16/25 14:26 Temperature 97.8 F Pulse Rate 76 80 Respiratory Rate 18 Blood Pressure 132/59 L Pulse Oximetry 95 96 Oxygen Delivery Room Air 03/16/25 16:00 03/16/25 20:00 03/16/25 21:34 Temperature 97.6 F Pulse Rate 84 80 73 Respiratory Rate 18 Blood Pressure 140/57 L Pulse Oximetry 97 Oxygen Delivery 03/17/25 00:00 03/17/25 04:00 03/17/25 05:13 Temperature 97.2 F L Pulse Rate 75 80 81 Respiratory Rate 20 Blood Pressure 124/50 L Pulse Oximetry 96 Oxygen Delivery Intake/Output Intake/Output: Intake & Output 03/14/25 03/15/25 03/16/25 03/17/25 23:59 23:59 23:59 23:59 Intake Total 2720 3210 3871 950 Output Total 900 1450 2200 700 Balance 1820 1760 1671 250 Meds/Results Medications: Active Medications Generic Name Dose Route Start Last Admin Trade Name Freq PRN Reason Stop Dose Admin Acetaminophen 1,000 mg 03/14/25 13:30 03/17/25 05:23 Acetaminophen 500 Mg Tablet PO Not Given Q6HR EJ Apixaban 5 mg 03/13/25 21:00 03/17/25 08:36 Apixaban 5 Mg Tablet PO 5 mg Q12HR EJ Administration Atorvastatin Calcium 10 mg 03/13/25 09:00 03/17/25 08:36 Atorvastatin 10 Mg Tablet PO 10 mg DAILY EJ Administration Dextrose 12.5 gm 03/13/25 08:49 Dextrose 50% 25 Gm/50 Ml Syringe IV PUSH PRN PRN Hypoglycemia Protocol Furosemide 20 mg 03/13/25 09:00 03/17/25 08:36 Furosemide 20 Mg Tablet PO 20 mg QAM EJ Administration Glucagon 1 mg 03/13/25 08:49 Glucagon For Inj 1 Mg Vial IM PRN PRN Hypoglycemia Protocol Glucose 15 gm 03/13/25 08:49 03/14/25 21:01 Glucose Oral Gel 15 Gm Of Glucse In 37.5 Gm Tube PO 15 gm PRN PRN Administration Hypoglycemia Protocol Metronidazole 500 mg in 100 mls @ 100 mls/hr 03/13/25 04:00 03/17/25 06:15 Flagyl 500 Mg/Iso Soln 100 Ml IVPB Infused Q8H EJ Infusion Cefepime HCl 2 gm/ Sodium 50 mls @ 100 mls/hr 03/13/25 04:00 03/17/25 06:00 Chloride IVPB Infused Q12H EJ Infusion Dextrose 1,000 mls @ 100 mls/hr 03/13/25 08:49 Dextrose 5% 1,000 Ml IVPB PRN PRN Hypoglycemia Protocol Iron Sucrose 400 mg/ Iron 275 mls @ 78.571 mls/hr 03/17/25 09:00 03/17/25 08:36 Sucrose 100 mg/ Sodium IVPB 03/17/25 12:29 78.57 mls/hr Chloride ONCE ONE Administration Vancomycin HCl 1,750 mg in 500 mls @ 250 mls/hr 03/16/25 18:00 03/17/25 04:00 Vancomycin 1,750 Mg/Ns 500 Ml IVPB Infused Q8H EJ Infusion Insulin Aspart 2 - 5 units 03/13/25 12:00 03/17/25 08:33 Insulin Aspart (*Bkc) 100 Units/Ml SUB-Q Not Given TIDWM [facility] Protocol Lidocaine 2 patch 03/14/25 09:00 03/17/25 08:37 Lidocaine 5% Patch TRANSDERM 2 patch DAILY [facility] Administration Lisinopril 20 mg 03/13/25 21:00 03/16/25 20:47 Lisinopril 20 Mg Tablet PO 20 mg HS EJ Administration Ondansetron HCl 4 mg 03/13/25 08:49 Ondansetron Inj 4 Mg/2 Ml Vial IV PUSH Q6H PRN Nausea And Vomiting Oxycodone HCl 5 mg 03/14/25 13:14 03/16/25 14:33 Oxycodone Hcl (*Crx) 5 Mg Tab Ir PO 5 mg Q4H PRN Administration Pain Rated 7-10 Pantoprazole Sodium 40 mg 03/13/25 08:00 03/17/25 08:36 Pantoprazole 40 Mg Tablet PO 40 mg DAILY@0800 [facility] Administration Radiology Results: ITS Impressions Elbow X-Ray 03/13/25 07:04 Impression: 1: No acute bone or joint abnormality. Chest X-Ray 03/13/25 07:05 IMPRESSION: 1: NO ACUTE CARDIOPULMONARY DISEASE. Tibia/Fibula X-Ray 03/13/25 07:06 Impression: 1: Mild-moderate polyarticular osteoarthritis. Lumbar Spine X-Ray 03/14/25 18:51 IMPRESSION: Normal lumbar spine. Labs Labs: Laboratory Results - last 24 hr 03/16/25 03/16/25 03/16/25 11:11 16:16 16:38 WBC RBC Hgb Hct MCV MCH MCHC RDW Plt Count MPV Immature Gran % (Auto) Neut % (Auto) Lymph % (Auto) Chambers % (Auto) Eos % (Auto) Baso % (Auto) Lymph # (Auto) Chambers # (Auto) Eos # (Auto) Baso # (Auto) Abs Immat Gran (auto) Absolute Neuts (auto) Absolute Nucleated RBC Band Neutrophils % Nucleated RBC % Platelet Estimate Polychromasia Microcytosis Target Cells Marcia Cells Schistocytes Sodium Potassium Chloride Carbon Dioxide Anion Gap BUN Creatinine Estim Creat Clear Calc Estimated GFR Glucose POC Capillary Glucose 120 H 139 H Calcium Magnesium Total Bilirubin AST ALT Alkaline Phosphatase Total Protein Albumin Vancomycin Trough 13.1 03/16/25 03/17/25 03/17/25 21:21 05:21 07:41 WBC 10.3 H RBC 3.69 L Hgb 8.3 L Hct 27.2 L MCV 73.7 L MCH 22.5 L MCHC 30.5 L RDW 17.6 H Plt Count 453 H MPV 9.1 Immature Gran % (Auto) 0.7 H Neut % (Auto) 70.3 Lymph % (Auto) 16.5 L Chambers % (Auto) 7.5 Eos % (Auto) 4.3 Baso % (Auto) 0.7 Lymph # (Auto) 1.69 Chambers # (Auto) 0.8 H Eos # (Auto) 0.4 H Baso # (Auto) 0.1 Abs Immat Gran (auto) 0.07 H Absolute Neuts (auto) 7.2 H Absolute Nucleated RBC 0.000 Band Neutrophils % Not Reportable Nucleated RBC % 0.0 Platelet Estimate Increased Polychromasia 1+ Microcytosis 2+ Target Cells Occasional Marcia Cells 2+ Schistocytes None seen Sodium 135 L Potassium 3.3 L Chloride 105 Carbon Dioxide 27 Anion Gap 3 L BUN 6 L Creatinine 0.44 L Estim Creat Clear Calc 182 Estimated GFR > 60 Glucose 99 POC Capillary Glucose 181 H 119 H Calcium 7.7 L Magnesium 2.0 Total Bilirubin 0.2 AST 25 ALT 18 Alkaline Phosphatase 83 Total Protein 5.9 L Albumin 2.3 L Vancomycin Trough Quality VTE Prophylaxis VTE prophylaxis: pharmacologic ordered
[2025-03-17] MEDS: POTASSIUM CHLORIDE 20 MEQ PACKET (FOR LIQUID) 40 MEQ PO ×2 (09:40→17:34)
[2025-03-17] MEDS: PERFLUTREN LIPID MICROSPHERES 1.5 ML VIAL DILUTED TO 10 ML TOTAL VOLUME IV PUSH (11:18)
--- NOTE | 2025-03-17 11:19 | IVDEFINITY ---
Prior to administration of IV Definity the patient was educated on the risks and benefits of the imaging enhancing agent including potential adverse side effects. The patient verbalized understanding. Allergies were verified. No exclusion criteria were identified and at least one of the following inclusion criteria were met: 1) physician request, 2) patient technically difficult to image (per the [place] [employer] guidelines of two or more segments not discernable within the apical view), or 3) questionable left ventricular function. ?
[2025-03-17] MEDS: ACETAMINOPHEN 500 MG TABLET 1000 MG PO ×3 (12:49→23:16)
[2025-03-17] MEDS: ceFAZolin 1 GM in SODIUM CHLORIDE 0.9% IV 50 ML 100 ML IVPB ×2 (14:18→21:38)
--- NOTE | 2025-03-17 17:00 | PC.NURSE ---
This RN, Marie Elizalde, has reviewed assessment documentation by Bernie Tai, KAM, and I agree with the findings. 03/17/25.
[2025-03-17] MEDS: SULFAMETHOXAZOLE/TRIMETHOPRIM 800/160 MG DS TABLET 1 TAB PO (21:36)
[2025-03-17] MEDS: oxyCODONE HCL (*CRX) 5 MG TAB IR PO (21:36)
[2025-03-18] VITALS (8 sets, daily range): BP systolic 123–135; BP diastolic 57–64; PULSE 65–82; RESP 14–18; TEMP 36.4–37.2; O2SAT 96–98
[2025-03-18] MEDS: ACETAMINOPHEN 500 MG TABLET 1000 MG PO ×3 (05:37→17:25)
[2025-03-18] MEDS: ceFAZolin 1 GM in SODIUM CHLORIDE 0.9% IV 50 ML 100 ML IVPB ×3 (05:37→21:15)
[2025-03-18 06:43] LABS: Hematocrit 31.1 % (42.0-52.0); Hemoglobin 9.3 g/dL (14.0-18.0); Immature Granulocyte Percent A 0.6 % (0-0.5); Lymphocytes Absolute Auto 2.04 K/mm3 (0.9-3.2); Mean Corpuscular HGB Conc 29.9 g/dl (32-36); Mean Corpuscular Hemoglobin 22.7 pg (26-34); Mean Corpuscular Volume 75.9 fl (80-100); Nucleated Red Blood Cells Absolute Auto 0.000 K/mm3 (0.0-0.012); Nucleated Red Blood Cells Perc 0.0 % (0.0-0.2); Platelet Count Result 499 k/mm3 (150-375); Red Blood Count 4.10 M/mm3 (4.6-6.20); White Blood Count 10.9 K/mm3 (4.5-10.0)
[2025-03-18 07:05] LABS: Alanine Aminotransferase 18 U/L (6-50); Albumin Level 2.6 g/dL (3.5-5.1); Alkaline Phosphatase 94 U/L (38-126); Anion Gap 4 mmol/L (4-12); Aspartate Amino Transferase 28 U/L (17-59); Bilirubin,Total 0.3 mg/dL (0.2-1.3); Blood Urea Nitrogen 7 mg/dL (9-20); Calcium 8.0 mg/dL (8.4-10.2); Carbon Dioxide 28 mmol/L (22-30); Chloride 104 mmol/L (98-107); Estimated CRCL calculation 155 ml/min; Estimated Glomerular Filt Rate > 60; Glucose 103 mg/dL (65-110); Magnesium 2.2 mg/dL (1.6-2.3); Potassium 3.8 mmol/L (3.4-5.0); Sodium 136 mmol/L (137-145); Total Protein 6.6 g/dL (6.3-8.2)
[2025-03-18 07:11] LABS: Hypochromasia 1+
[2025-03-18 07:12] LABS: Anisocytosis 1+; Burr Cells 1+; Schistocytes None Seen
--- NOTE | 2025-03-18 08:03 | P.PNIM_ITS ---
Progress Note: A&P Assessment and Plan (1) Cellulitis: Qualifiers: Laterality: left Site of cellulitis: extremity Site of cellulitis of extremity: lower extremity Qualified Code(s): L03.116 - Cellulitis of left lower limb Code(s): L03.90 - Cellulitis, unspecified Status: Acute Assessment and Plan: LLE with mild erythema and drainage, WBC of 16.4 * IV vanc, cefepime Flagyl * Wound culture pending * blood cultures NGTD * Lactic WNL * wound consulted follows O/P * keep legs elevated * wbc slowly improving * AM labs 03/16: LLE appears to have decreased erythema per marker outline, mildly weepy to LLE, TTP -WBC 10.6-->9.5 overnight, now WDL -WC pending, prelim gram neg bacilli, second bottle pending -BC redraw yesterday due to both growing staph aureus -Wound team with orders for silver gel and cover with dressing if areas open 03/17: LLE appears similar today as it did yesterday -WBC with minimal increase overnight, 9.5-->10.3 -WC resulted with morganella morganii, started ancef IV and PO bactrim abx today, recs from ID. ID to see Monday 03/19. -->Vanc, cefepime, and flagyl D/C 03/18: LLE erythema continues to decrease minimally -WBC with minimal increase overnight, 10.3-->10.9 -Continue ancef IV and bactrim PO -ID to see tomorrow (2) Stasis dermatitis: Code(s): I87.2 - Venous insufficiency (chronic) (peripheral) Status: Acute Assessment and Plan: * Follows O/P with wound * See Above * wound nurse consult (3) Essential (primary) hypertension: Code(s): I10 - Essential (primary) hypertension Status: Acute Assessment and Plan: * continue Lisinopril * Monitor BP per unit protocol (4) Peripheral vascular disease: Code(s): I73.9 - Peripheral vascular disease, unspecified Status: Acute Assessment and Plan: * Continue Atorvastatin and eliquis 03/16: Per pt, he goes to the outpt wound clinic as needed, last time he went was around x1 month ago (5) Personal history of pulmonary embolism: Code(s): Z86.711 - Personal history of pulmonary embolism Status: Acute Assessment and Plan: * Continue eliquis * monitor H&H 03/16: Per pt, x2 sep occasions, denies DVT hx. (6) Type 2 diabetes mellitus without complications: Code(s): E11.9 - Type 2 diabetes mellitus without complications Status: Acute Assessment and Plan: * Accuchecks ACHS * SSI low dose * hold metformin * hold glipizide * hypoglycemia protocol * diabetic diet 03/15: FBS 88 today, will continue to monitor (7) Fall: Qualifiers: Encounter type: initial encounter Qualified Code(s): W19.XXXA - Unspecified fall, initial encounter Code(s): W19.XXXA - Unspecified fall, initial encounter Status: Acute Assessment and Plan: * PT/OT will likely need rehab placement * patient reports low back pain that is new since fall * x-rays of lumbar spine without acute fracture * adjust pain medications 03/16: Denies pain today. (8) Generalized weakness: Code(s): R53.1 - Weakness Status: Acute Assessment and Plan: * See Above (9) Anemia: Qualifiers: Anemia type: unspecified type Qualified Code(s): D64.9 - Anemia, unspecified Code(s): D64.9 - Anemia, unspecified Status: Acute Assessment and Plan: Hgb 8.9 no previous HX no evidence of active GIB but does have bleeding from coccyx excoriation * Monitor H&H * Iron panel pending * will continue Eliquis at this time due to HX of PE but may need to hold if Hgb drops 03/16: HGB 7.1-->8.1 overnight, continue to trend -No active bleeding -Iron % 8 today, will give Venofer 500 x1 dose today, repeat tomorrow 03/17: Second venofer given today, hgb remains stable 03/18: Hgb remains stable, continue to trend (10) UTI (urinary tract infection): Code(s): N39.0 - Urinary tract infection, site not specified Status: Acute Assessment and Plan: UA with some suspicion of UTI Leukcytes+ and WBC no bacteria * On IV cefepime for cellulitis de-escalate if culture negative * culture negative, ruled out 03/15: UC negative, resolved. (11) Bacteremia: Code(s): R78.81 - Bacteremia Status: Acute Assessment and Plan: Patient's blood cultures x 2 positive for staph aureus f/u final ID and sensitivities repeat blood cultures ordered continue IV vancomycin and IV cefepime AM labs 03/16: New BC obtained 03/15, pending 03/17: Echo ordered today -Spoke to Dr. Cadena (ID) with updated WC results of morganella morganii with MSSA bacteremia, he recommended discontinuing the vanc, cefepime, and flagyl and started ancef 2g q8h and PO bactrim Echo results: Summary 1. Normal LV size, [id number] LVH, normal LV systolic function, ejection fraction 65-70%. Normal diastolic function. Normal RV size and systolic function. Mild left enlargement. No significant valvular abnormality. No significant pericardial effusion. 03/18: Pending -Continue Ancef IV & PO Bactrim -ID consult tomorrow (12) Hypokalemia: Code(s): E87.6 - Hypokalemia Status: Acute Assessment and Plan: 03/16: K 3.2 with AM labs -40 meq IV given 03/14 -Will continue to replenish today with 40meq IV, recheck tomorrow AM -Appetite has been limited due to Mounjaro started in October 2024. Encouraged him to continue to eat and drink while in hospital. 03/17: K 3.3 with AM labs -Pt on furosemide 20mg PO daily -K 40meq PO BID started today 03/18: K 3.8 with AM labs -Continue with K 40meq BID, continue to trend labs (13) Ventricular tachycardia seen on monitor technician: Code(s): I47.20 - Ventricular tachycardia, unspecified Status: Acute Assessment and Plan: Run of around 20-25 beats seen on tele -Pt asymptomatic, was sleeping during episode -Pt with WDL echo yesterday -Recent stress test 02/21/2025 at this location for WINTERS, per pt, old NC found -K has been low, have been repleting since 03/14 -Mag this AM: 2.2 -Cards consulted Plan Keep treating cellulitis & bacteremia with new abx, pending repeat BC. Pending S NF placement ([facility]), CC for potential IV abx on D/C, pending ID Time Spent With Patient Time: 45 Subjective Date/time seen: 03/18/25 0933 Interval history: Patient lying comfortably in bed sleeping, arousable to voice. Pt continues to deny sx. Reiterated plan for pending BC and IV abx. Pt denies CP, SOB, or any other sx. Review of Systems Review of Systems: All systems reviewed & are unremarkable except as noted in HPI and below Exam Const: General: comfortable and no acute distress Other: Pleasant chronically ill gentleman HENMT: Mouth: Yes moist mucous membranes Eyes: General: appearance normal, both eyes and all related structures Sclera: sclerae normal Pupils: Equal, round and reactive pupils present Neck: Neck: supple and no JVD Resp: Effort & Inspection: normal respiratory effort Auscultation: clear to auscultation bilaterally Cardio: Rhythm: regular rhythm GI: Auscultation: normal bowel sounds Skin: General skin exam: dry skin, erythema (LLE ) and excoriation Other: Patient with significant excoriation to his abdominal area, dermatitis stasis, minimal drainage Neuro: Cranial nerves: Yes Equal, round and reactive pupils present Speech: normal speech Other: Unable to evaluate gait, pain with and movement to BLE Extrem: General: edema (RLE >LLE 2+) bilateral Other: BLE with erythema and edema (edema R>L), erythema outlined in marker. LLE with breakdown and healing wound with scan to mid swenson lateral aspect Psych: Mental Status: mental status grossly normal Affect: normal affect Objective Data Vital Signs Vital Signs: Vital Signs - 24 hr 03/17/25 12:00 03/17/25 14:00 03/17/25 16:00 Temperature 97.9 F Pulse Rate 79 71 78 Respiratory Rate 18 Blood Pressure 125/52 L Pulse Oximetry 96 Oxygen Delivery 03/17/25 20:00 03/17/25 20:00 03/17/25 20:35 Temperature 98.4 F Pulse Rate 81 74 Respiratory Rate 19 Blood Pressure 137/61 Pulse Oximetry 96 Oxygen Delivery Room Air 03/18/25 00:00 03/18/25 04:00 03/18/25 05:35 Temperature 98.3 F Pulse Rate 74 76 76 Respiratory Rate 16 Blood Pressure 134/62 Pulse Oximetry 98 Oxygen Delivery Intake/Output Intake/Output: Intake & Output 03/15/25 03/16/25 03/17/25 03/18/25 23:59 23:59 23:59 23:59 Intake Total 3210 3871 1972.4 550 Output Total 1450 2200 3400 450 Balance 1760 1671 -1427.6 100 Meds/Results Medications: Active Medications Generic Name Dose Route Start Last Admin Trade Name Freq PRN Reason Stop Dose Admin Acetaminophen 1,000 mg 03/14/25 13:30 03/18/25 05:37 Acetaminophen 500 Mg Tablet PO 1,000 mg Q6HR EJ Administration Apixaban 5 mg 03/13/25 21:00 03/17/25 21:36 Apixaban 5 Mg Tablet PO 5 mg Q12HR EJ Administration Atorvastatin Calcium 10 mg 03/13/25 09:00 03/17/25 08:36 Atorvastatin 10 Mg Tablet PO 10 mg DAILY EJ Administration Dextrose 12.5 gm 03/13/25 08:49 Dextrose 50% 25 Gm/50 Ml Syringe IV PUSH PRN PRN Hypoglycemia Protocol Furosemide 20 mg 03/13/25 09:00 03/17/25 08:36 Furosemide 20 Mg Tablet PO 20 mg QAM EJ Administration Glucagon 1 mg 03/13/25 08:49 Glucagon For Inj 1 Mg Vial IM PRN PRN Hypoglycemia Protocol Glucose 15 gm 03/13/25 08:49 03/14/25 21:01 Glucose Oral Gel 15 Gm Of Glucse In 37.5 Gm Tube PO 15 gm PRN PRN Administration Hypoglycemia Protocol Dextrose 1,000 mls @ 100 mls/hr 03/13/25 08:49 Dextrose 5% 1,000 Ml IVPB PRN PRN Hypoglycemia Protocol Cefazolin Sodium 1 gm/ Sodium 50 mls @ 100 mls/hr 03/17/25 14:00 03/18/25 05:37 Chloride IVPB 100 mls/hr Q8HR EJ Administration Insulin Aspart 2 - 5 units 03/13/25 12:00 03/17/25 17:09 Insulin Aspart (*Bkc) 100 Units/Ml SUB-Q Not Given TIDWM EJ Protocol Lidocaine 2 patch 03/14/25 09:00 03/17/25 08:37 Lidocaine 5% Patch TRANSDERM 2 patch DAILY EJ Administration Lisinopril 20 mg 03/13/25 21:00 03/17/25 21:36 Lisinopril 20 Mg Tablet PO 20 mg HS EJ Administration Ondansetron HCl 4 mg 03/13/25 08:49 Ondansetron Inj 4 Mg/2 Ml Vial IV PUSH Q6H PRN Nausea And Vomiting Oxycodone HCl 5 mg 03/14/25 13:14 03/17/25 21:36 Oxycodone Hcl (*Crx) 5 Mg Tab Ir PO 5 mg Q4H PRN Administration Pain Rated 7-10 Pantoprazole Sodium 40 mg 03/13/25 08:00 03/17/25 08:36 Pantoprazole 40 Mg Tablet PO 40 mg DAILY@0800 EJ Administration Potassium Chloride 40 meq 03/17/25 09:25 03/17/25 17:34 Potassium Chloride 20 Meq Packet (For Liquid) PO 40 meq BID EJ Administration Trimethoprim/Sulfamethoxazole 1 tab 03/17/25 21:00 03/17/25 21:36 Sulfamethoxazole/Trimethoprim 800/160 Mg Ds Tablet PO 1 tab Q12HR EJ Administration Radiology Results: ITS Impressions Elbow X-Ray 03/13/25 07:04 Impression: 1: No acute bone or joint abnormality. Chest X-Ray 03/13/25 07:05 IMPRESSION: 1: NO ACUTE CARDIOPULMONARY DISEASE. Tibia/Fibula X-Ray 03/13/25 07:06 Impression: 1: Mild-moderate polyarticular osteoarthritis. Lumbar Spine X-Ray 03/14/25 18:51 IMPRESSION: Normal lumbar spine. Labs Labs: Laboratory Results - last 24 hr 03/17/25 03/17/25 03/17/25 07:41 12:01 16:41 WBC RBC Hgb Hct MCV MCH MCHC RDW Plt Count MPV Immature Gran % (Auto) Neut % (Auto) Lymph % (Auto) [place] % (Auto) Eos % (Auto) Baso % (Auto) Lymph # (Auto) [place] # (Auto) Eos # (Auto) Baso # (Auto) Abs Immat Gran (auto) Absolute Neuts (auto) Absolute Nucleated RBC Band Neutrophils % Nucleated RBC % Platelet Estimate Hypochromasia Anisocytosis Marcia Cells Schistocytes Sodium Potassium Chloride Carbon Dioxide Anion Gap BUN Creatinine Estim Creat Clear Calc Estimated GFR Glucose POC Capillary Glucose 119 H 160 H 136 H Calcium Magnesium Total Bilirubin AST ALT Alkaline Phosphatase Total Protein Albumin 03/17/25 03/18/25 03/18/25 20:32 06:23 07:57 WBC 10.9 H RBC 4.10 L Hgb 9.3 L Hct 31.1 L MCV 75.9 L MCH 22.7 L MCHC 29.9 L RDW 18.4 H Plt Count 499 H MPV 9.0 Immature Gran % (Auto) 0.6 H Neut % (Auto) 68.5 Lymph % (Auto) 18.8 [place] % (Auto) 7.4 Eos % (Auto) 4.3 Baso % (Auto) 0.4 Lymph # (Auto) 2.04 [place] # (Auto) 0.8 H Eos # (Auto) 0.5 H Baso # (Auto) 0.0 Abs Immat Gran (auto) 0.07 H Absolute Neuts (auto) 7.4 H Absolute Nucleated RBC 0.000 Band Neutrophils % Not Reportable Nucleated RBC % 0.0 Platelet Estimate Increased Hypochromasia 1+ Anisocytosis 1+ Marcia Cells 1+ Schistocytes None seen Sodium 136 L Potassium 3.8 Chloride 104 Carbon Dioxide 28 Anion Gap 4 BUN 7 L Creatinine 0.53 L Estim Creat Clear Calc 155 Estimated GFR > 60 Glucose 103 POC Capillary Glucose 187 H 117 H Calcium 8.0 L Magnesium 2.2 Total Bilirubin 0.3 AST 28 ALT 18 Alkaline Phosphatase 94 Total Protein 6.6 Albumin 2.6 L Quality VTE Prophylaxis VTE prophylaxis: pharmacologic ordered
[2025-03-18] MEDS: oxyCODONE HCL (*CRX) 5 MG TAB IR PO ×2 (08:59→18:38)
[2025-03-18] MEDS: PANTOPRAZOLE 40 MG TABLET PO (09:02)
[2025-03-18] MEDS: APIXABAN 5 MG TABLET PO ×2 (09:02→21:15)
[2025-03-18] MEDS: FUROSEMIDE 20 MG TABLET PO (09:02)
[2025-03-18] MEDS: POTASSIUM CHLORIDE 20 MEQ PACKET (FOR LIQUID) 40 MEQ PO ×2 (09:02→16:40)
[2025-03-18] MEDS: ATORVASTATIN 10 MG TABLET PO (09:02)
[2025-03-18] MEDS: LIDOCAINE 5% PATCH 2 PATCH TRANSDERM (09:03)
[2025-03-18] MEDS: SULFAMETHOXAZOLE/TRIMETHOPRIM 800/160 MG DS TABLET 1 TAB PO ×2 (09:04→21:15)
[2025-03-19] VITALS (9 sets, daily range): BP systolic 128–154; BP diastolic 61–69; PULSE 77–95; RESP 16–18; TEMP 36.6–37.3; O2SAT 93–98
[2025-03-19 05:48] LABS: Hematocrit 30.0 % (42.0-52.0); Hemoglobin 9.0 g/dL (14.0-18.0); Immature Granulocyte Percent A 0.8 % (0-0.5); Lymphocytes Absolute Auto 1.93 K/mm3 (0.9-3.2); Mean Corpuscular HGB Conc 30.0 g/dl (32-36); Mean Corpuscular Hemoglobin 22.4 pg (26-34); Mean Corpuscular Volume 74.6 fl (80-100); Nucleated Red Blood Cells Absolute Auto 0.000 K/mm3 (0.0-0.012); Nucleated Red Blood Cells Perc 0.0 % (0.0-0.2); Platelet Count Result 530 k/mm3 (150-375); Red Blood Count 4.02 M/mm3 (4.6-6.20); White Blood Count 10.8 K/mm3 (4.5-10.0)
[2025-03-19 06:12] LABS: Alanine Aminotransferase 16 U/L (6-50); Albumin Level 2.6 g/dL (3.5-5.1); Alkaline Phosphatase 98 U/L (38-126); Anion Gap 4 mmol/L (4-12); Aspartate Amino Transferase 28 U/L (17-59); Bilirubin,Total 0.3 mg/dL (0.2-1.3); Blood Urea Nitrogen 6 mg/dL (9-20); Calcium 8.1 mg/dL (8.4-10.2); Carbon Dioxide 28 mmol/L (22-30); Chloride 102 mmol/L (98-107); Estimated CRCL calculation 145 ml/min; Estimated Glomerular Filt Rate > 60; Glucose 106 mg/dL (65-110); Magnesium 2.2 mg/dL (1.6-2.3); Potassium 4.1 mmol/L (3.4-5.0); Sodium 134 mmol/L (137-145); Total Protein 6.7 g/dL (6.3-8.2)
[2025-03-19] MEDS: ACETAMINOPHEN 500 MG TABLET 1000 MG PO ×2 (06:16→11:48)
[2025-03-19 06:17] LABS: Burr Cells 1+; Hypochromasia 1+; Microcytosis 1+ (NORMAL); Schistocytes None Seen; Target Cells Occasional
[2025-03-19] MEDS: ceFAZolin 1 GM in SODIUM CHLORIDE 0.9% IV 50 ML 100 ML IVPB ×3 (06:29→21:04)
[2025-03-19] MEDS: oxyCODONE HCL (*CRX) 5 MG TAB IR PO ×4 (06:30→21:03)
[2025-03-19] MEDS: POTASSIUM CHLORIDE 20 MEQ PACKET (FOR LIQUID) 40 MEQ PO ×2 (08:56→15:53)
[2025-03-19] MEDS: APIXABAN 5 MG TABLET PO ×2 (08:56→21:03)
[2025-03-19] MEDS: PANTOPRAZOLE 40 MG TABLET PO (08:56)
[2025-03-19] MEDS: FUROSEMIDE 20 MG TABLET PO (08:56)
[2025-03-19] MEDS: ATORVASTATIN 10 MG TABLET PO (08:56)
[2025-03-19] MEDS: LIDOCAINE 5% PATCH 2 PATCH TRANSDERM (08:57)
[2025-03-19] MEDS: SULFAMETHOXAZOLE/TRIMETHOPRIM 800/160 MG DS TABLET 1 TAB PO ×2 (08:57→21:03)
--- NOTE | 2025-03-19 09:24 | P.PNIM_ITS ---
Progress Note: A&P Assessment and Plan (1) Cellulitis: Qualifiers: Laterality: left Site of cellulitis: extremity Site of cellulitis of extremity: lower extremity Qualified Code(s): L03.116 - Cellulitis of left lower limb Code(s): L03.90 - Cellulitis, unspecified Status: Acute Assessment and Plan: LLE with mild erythema and drainage, WBC of 16.4 * IV vanc, cefepime Flagyl * Wound culture pending * blood cultures NGTD * Lactic WNL * wound consulted follows O/P * keep legs elevated * wbc slowly improving * AM labs 03/16: LLE appears to have decreased erythema per marker outline, mildly weepy to LLE, TTP -WBC 10.6-->9.5 overnight, now WDL -WC pending, prelim gram neg bacilli, second bottle pending -BC redraw yesterday due to both growing staph aureus -Wound team with orders for silver gel and cover with dressing if areas open 03/17: LLE appears similar today as it did yesterday -WBC with minimal increase overnight, 9.5-->10.3 -WC resulted with morganella morganii, started ancef IV and PO bactrim abx today, recs from ID. ID to see Monday 03/19. -->Vanc, cefepime, and flagyl D/C 03/18: LLE erythema continues to decrease minimally -WBC with minimal increase overnight, 10.3-->10.9 -Continue ancef IV and bactrim PO -ID to see tomorrow 03/19: -WBC 10.8 today -Continue ancef IV and bactrim PO -ID seen today: -Await repeat blood cultures from 03/15/25 to document clearance of septicemia -Continue Cefazolin for treatment of MSSA septicemia -Continue Bactrim PO for coverage of Proteus from wound culture -Obtain CT thoracic/lumbosacral spine with IV contrast to evaluate for spinal/paraspinal infection (avoiding MRI for now given history of possible cochlear iimplants/device) -Follow CBC and renal function -Continue local wound care (2) Stasis dermatitis: Code(s): I87.2 - Venous insufficiency (chronic) (peripheral) Status: Acute Assessment and Plan: * Follows O/P with wound * See Above * wound nurse consult (3) Essential (primary) hypertension: Code(s): I10 - Essential (primary) hypertension Status: Acute Assessment and Plan: * continue Lisinopril * Monitor BP per unit protocol (4) Peripheral vascular disease: Code(s): I73.9 - Peripheral vascular disease, unspecified Status: Acute Assessment and Plan: * Continue Atorvastatin and eliquis 03/16: Per pt, he goes to the outpt wound clinic as needed, last time he went was around x1 month ago (5) Personal history of pulmonary embolism: Code(s): Z86.711 - Personal history of pulmonary embolism Status: Acute Assessment and Plan: * Continue eliquis * monitor H&H 03/16: Per pt, x2 sep occasions, denies DVT hx. (6) Type 2 diabetes mellitus without complications: Code(s): E11.9 - Type 2 diabetes mellitus without complications Status: Acute Assessment and Plan: * Accuchecks ACHS * SSI low dose * hold metformin * hold glipizide * hypoglycemia protocol * diabetic diet 03/15: FBS 88 today, will continue to monitor (7) Fall: Qualifiers: Encounter type: initial encounter Qualified Code(s): W19.XXXA - Unspecified fall, initial encounter Code(s): W19.XXXA - Unspecified fall, initial encounter Status: Acute Assessment and Plan: * PT/OT will likely need rehab placement * patient reports low back pain that is new since fall * x-rays of lumbar spine without acute fracture * adjust pain medications 03/16: Denies pain today. (8) Generalized weakness: Code(s): R53.1 - Weakness Status: Acute Assessment and Plan: * See Above (9) Anemia: Qualifiers: Anemia type: unspecified type Qualified Code(s): D64.9 - Anemia, unspecified Code(s): D64.9 - Anemia, unspecified Status: Acute Assessment and Plan: Hgb 8.9 no previous HX no evidence of active GIB but does have bleeding from coccyx excoriation * Monitor H&H * Iron panel pending * will continue Eliquis at this time due to HX of PE but may need to hold if Hgb drops 03/16: HGB 7.1-->8.1 overnight, continue to trend -No active bleeding -Iron % 8 today, will give Venofer 500 x1 dose today, repeat tomorrow 03/17: Second venofer given today, hgb remains stable 03/18: Hgb remains stable, continue to trend (10) UTI (urinary tract infection): Code(s): N39.0 - Urinary tract infection, site not specified Status: Acute Assessment and Plan: UA with some suspicion of UTI Leukcytes+ and WBC no bacteria * On IV cefepime for cellulitis de-escalate if culture negative * culture negative, ruled out 03/15: UC negative, resolved. (11) Bacteremia: Code(s): R78.81 - Bacteremia Status: Acute Assessment and Plan: Patient's blood cultures x 2 positive for staph aureus f/u final ID and sensitivities repeat blood cultures ordered continue IV vancomycin and IV cefepime AM labs 03/16: New BC obtained 03/15, pending 03/17: Echo ordered today -Spoke to Dr. Harting (ID) with updated WC results of morganella morganii with MSSA bacteremia, he recommended discontinuing the vanc, cefepime, and flagyl and started ancef 2g q8h and PO bactrim Echo results: Summary 1. Normal LV size, iiba-ji-dvyjwyeg LVH, normal LV systolic function, ejection fraction 65-70%. Normal diastolic function. Normal RV size and systolic function. Mild left enlargement. No significant valvular abnormality. No significant pericardial effusion. 03/18: Pending BC -Continue Ancef IV & PO Bactrim -ID consult tomorrow 03/19: BC no growth in 24 hours -Continue Ancef IV & PO Bactrim -Appreciate ID consult recs: -Await repeat blood cultures from 03/15/25 to document clearance of septicemia -Continue Cefazolin for treatment of MSSA septicemia -Continue Bactrim PO for coverage of Proteus from wound culture -Obtain CT thoracic/lumbosacral spine with IV contrast to evaluate for spinal/paraspinal infection (avoiding MRI for now given history of possible cochlear iimplants/device) -Follow CBC and renal function -Continue local wound care (12) Hypokalemia: Code(s): E87.6 - Hypokalemia Status: Acute Assessment and Plan: 03/16: K 3.2 with AM labs -40 meq IV given 03/14 -Will continue to replenish today with 40meq IV, recheck tomorrow AM -Appetite has been limited due to Mounjaro started in October 2024. Encouraged him to continue to eat and drink while in hospital. 03/17: K 3.3 with AM labs -Pt on furosemide 20mg PO daily -K 40meq PO BID started today 03/18: K 3.8 with AM labs -Continue with K 40meq BID, continue to trend labs 03/19: K 4.1 with AM labs -Continue with K 40meq BID, consider decrease if labs continue to be stable (13) Ventricular tachycardia seen on director cardiac: Code(s): I47.20 - Ventricular tachycardia, unspecified Status: Acute Assessment and Plan: Run of around 20-25 beats seen on tele -Pt asymptomatic, was sleeping during episode -Pt with WDL echo yesterday -Recent stress test 02/21/2025 at this location for [facility]INTER[facility], per pt, old [place] found -K has been low, have been repleting since 03/14 -Mag this AM: 2.2 -Cards consulted 03/19: Cards consulted today, appreciate below recs: Nonsustained ventricular tachycardia -will start carvedilol 6.25 mg p.o. b.i.d. -can follow-up in clinic for 30 day event monitor after discharge Abnormal stress test -small area of mild intensity ischemia -start aspirin 81 mg p.o. daily and coreg 6.25mg PO BID -continue atorvastatin 10 mg p.o. qhs for goal LDL less than 70 -will discuss further ischemic eval depending on symptoms and monitor results in clinic once bacteremia clears Peripheral vascular disease -recommend MICHAEL Call if he continues to have episodes of NSVT otherwise, can follow up in cardiology clinic in 2-4 weeks -ABIs performed today: 1. No significant arterial occlusive disease to either lower limb with normal bilateral TBIs. Plan Continue to treat cellulitis & bacteremia with new abx, pending repeat BC. Pending SNF placement (L[facility]), CC for potential IV abx on D/C, ID & cards following Time Spent With Patient Time: 45 Subjective Date/time seen: 03/19/25 6224 Interval history: Patient sitting up in the chair upon my arrival. Pt continues to deny sx. Spoke about ID and cards updated plans, all questions addressed. Pt denies CP, SOB, or any other sx. Review of Systems Review of Systems: All systems reviewed & are unremarkable except as noted in HPI and below Exam Const: General: comfortable and no acute distress Other: Pleasant chronically ill gentleman, obese HENMT: Mouth: Yes moist mucous membranes Eyes: General: appearance normal, both eyes and all related structures Sclera: sclerae normal Pupils: Equal, round and reactive pupils present Neck: Neck: supple and no JVD Resp: Effort & Inspection: normal respiratory effort Auscultation: clear to auscultation bilaterally Cardio: Rhythm: regular rhythm GI: Auscultation: normal bowel sounds Skin: General skin exam: dry skin, erythema (LLE ) and excoriation Other: Patient with significant excoriation to his abdominal area, dermatitis stasis, minimal drainage Neuro: Cranial nerves: Yes Equal, round and reactive pupils present Speech: normal speech Other: Unable to evaluate gait, pain with and movement to BLE Extrem: General: edema (RLE >LLE 2+) bilateral Other: BLE with erythema and edema (edema R>L), erythema outlined in marker. LLE with breakdown and healing wound with scan to mid swenson lateral aspect Psych: Mental Status: mental status grossly normal Affect: normal affect Objective Data Vital Signs Vital Signs: Vital Signs - 24 hr 03/18/25 12:00 03/18/25 12:00 03/18/25 14:00 Temperature 97.5 F L Pulse Rate 73 73 73 Respiratory Rate 14 Blood Pressure 135/64 Pulse Oximetry 96 Oxygen Delivery 03/18/25 20:00 03/18/25 20:00 03/18/25 20:00 Temperature Pulse Rate 82 82 Respiratory Rate Blood Pressure Pulse Oximetry Oxygen Delivery Room Air 03/18/25 20:34 03/19/25 00:00 03/19/25 04:00 Temperature 98.9 F Pulse Rate 65 77 81 Respiratory Rate 18 Blood Pressure 123/57 L Pulse Oximetry 97 Oxygen Delivery 03/19/25 04:52 Temperature 98.7 F Pulse Rate 80 Respiratory Rate 18 Blood Pressure 154/69 H Pulse Oximetry 98 Oxygen Delivery Intake/Output Intake/Output: Intake & Output 03/16/25 03/17/25 03/18/25 03/19/25 23:59 23:59 23:59 23:59 Intake Total 3871 1972.4 1709 200 Output Total 2200 3400 2850 1300 Balance 1671 1427.6 1141 -1100 Meds/Results Medications: Active Medications Generic Name Dose Route Start Last Admin Trade Name Freq PRN Reason Stop Dose Admin Acetaminophen 1,000 mg 03/14/25 13:30 03/19/25 06:16 Acetaminophen 500 Mg Tablet PO 1,000 mg Q6HR EJ Administration Apixaban 5 mg 03/13/25 21:00 03/19/25 08:56 Apixaban 5 Mg Tablet PO 5 mg Q12HR EJ Administration Atorvastatin Calcium 10 mg 03/13/25 09:00 03/19/25 08:56 Atorvastatin 10 Mg Tablet PO 10 mg DAILY EJ Administration Dextrose 12.5 gm 03/13/25 08:49 Dextrose 50% 25 Gm/50 Ml Syringe IV PUSH PRN PRN Hypoglycemia Protocol Furosemide 20 mg 03/13/25 09:00 03/19/25 08:56 Furosemide 20 Mg Tablet PO 20 mg QAM EJ Administration Glucagon 1 mg 03/13/25 08:49 Glucagon For Inj 1 Mg Vial IM PRN PRN Hypoglycemia Protocol Glucose 15 gm 03/13/25 08:49 03/14/25 21:01 Glucose Oral Gel 15 Gm Of Glucse In 37.5 Gm Tube PO 15 gm PRN PRN Administration Hypoglycemia Protocol Dextrose 1,000 mls @ 100 mls/hr 03/13/25 08:49 Dextrose 5% 1,000 Ml IVPB PRN PRN Hypoglycemia Protocol Cefazolin Sodium 1 gm/ Sodium 50 mls @ 100 mls/hr 03/17/25 14:00 03/19/25 06:29 Chloride IVPB 100 mls/hr Q8HR EJ Administration Insulin Aspart 2 - 5 units 03/13/25 12:00 03/18/25 17:23 Insulin Aspart (*Bkc) 100 Units/Ml SUB-Q Not Given TIDWM [facility] Protocol Lidocaine 2 patch 03/14/25 09:00 03/19/25 08:57 Lidocaine 5% Patch TRANSDERM 2 patch DAILY EJ Administration Lisinopril 20 mg 03/13/25 21:00 03/18/25 21:15 Lisinopril 20 Mg Tablet PO 20 mg HS EJ Administration Ondansetron HCl 4 mg 03/13/25 08:49 Ondansetron Inj 4 Mg/2 Ml Vial IV PUSH Q6H PRN Nausea And Vomiting Oxycodone HCl 5 mg 03/14/25 13:14 03/19/25 06:30 Oxycodone Hcl (*Crx) 5 Mg Tab Ir PO 5 mg Q4H PRN Administration Pain Rated 7-10 Pantoprazole Sodium 40 mg 03/13/25 08:00 03/19/25 08:56 Pantoprazole 40 Mg Tablet PO 40 mg DAILY@0800 EJ Administration Potassium Chloride 40 meq 03/17/25 09:25 03/19/25 08:56 Potassium Chloride 20 Meq Packet (For Liquid) PO 40 meq BID EJ Administration Trimethoprim/Sulfamethoxazole 1 tab 03/17/25 21:00 03/19/25 08:57 Sulfamethoxazole/Trimethoprim 800/160 Mg Ds Tablet PO 1 tab Q12HR EJ Administration Radiology Results: ITS Impressions Elbow X-Ray 03/13/25 07:04 Impression: 1: No acute bone or joint abnormality. Chest X-Ray 03/13/25 07:05 IMPRESSION: 1: NO ACUTE CARDIOPULMONARY DISEASE. Tibia/Fibula X-Ray 03/13/25 07:06 Impression: 1: Mild-moderate polyarticular osteoarthritis. Lumbar Spine X-Ray 03/14/25 18:51 IMPRESSION: Normal lumbar spine. Labs Labs: Laboratory Results - last 24 hr 03/18/25 03/18/25 03/18/25 11:38 16:55 20:36 WBC RBC Hgb Hct MCV MCH MCHC RDW Plt Count MPV Immature Gran % (Auto) Neut % (Auto) Lymph % (Auto) [place] % (Auto) Eos % (Auto) Baso % (Auto) Lymph # (Auto) [place] # (Auto) Eos # (Auto) Baso # (Auto) Abs Immat Gran (auto) Absolute Neuts (auto) Absolute Nucleated RBC Band Neutrophils % Nucleated RBC % Platelet Estimate Hypochromasia Microcytosis Target Cells [place] Cells Schistocytes Sodium Potassium Chloride Carbon Dioxide Anion Gap BUN Creatinine Estim Creat Clear Calc Estimated GFR Glucose POC Capillary Glucose 139 H 101 181 H Calcium Magnesium Total Bilirubin AST ALT Alkaline Phosphatase Total Protein Albumin 03/19/25 03/19/25 05:29 07:47 WBC 10.8 H RBC 4.02 L Hgb 9.0 L Hct 30.0 L MCV 74.6 L MCH 22.4 L MCHC 30.0 L RDW 18.6 H Plt Count 530 H MPV 8.6 Immature Gran % (Auto) 0.8 H Neut % (Auto) 70.3 Lymph % (Auto) 17.8 L [place] % (Auto) 7.4 Eos % (Auto) 3.1 Baso % (Auto) 0.6 Lymph # (Auto) 1.93 [place] # (Auto) 0.8 H Eos # (Auto) 0.3 Baso # (Auto) 0.1 Abs Immat Gran (auto) 0.09 H Absolute Neuts (auto) 7.6 H Absolute Nucleated RBC 0.000 Band Neutrophils % Not Reportable Nucleated RBC % 0.0 Platelet Estimate Increased Hypochromasia 1+ Microcytosis 1+ Target Cells Occasional [place] Cells 1+ Schistocytes None seen Sodium 134 L Potassium 4.1 Chloride 102 Carbon Dioxide 28 Anion Gap 4 BUN 6 L Creatinine 0.57 L Estim Creat Clear Calc 145 Estimated GFR > 60 Glucose 106 POC Capillary Glucose 140 H Calcium 8.1 L Magnesium 2.2 Total Bilirubin 0.3 AST 28 ALT 16 Alkaline Phosphatase 98 Total Protein 6.7 Albumin 2.6 L Quality VTE Prophylaxis VTE prophylaxis: pharmacologic ordered
--- NOTE | 2025-03-19 10:44 | PCNFU ---
Nutrition Follow-Up Complete: Inadequate protein intake related to increased protein energy needs for skin, as evidenced by mild muscle wasting and medication induced weight loss of 60 lb, 18%/6 months Goal:Intakes >75% Pt meeting goal Pt current nutrition is Diabetic consistent carb, Glucerna shakes BID. Nutrition recommendation: continue with current plan of care Last recorded weight is 124.6 kg. Bowel Motility: +BM 03/17 Labs Reviewed: Hgb:9.0, HCt:30, Na:134, BUN:6, Cr:0.57, Glu:140 Meds Noted: lasix, protonix, eliquis, KCL Skin: cellulitis Additional Notes: Pt continues on a diabetic diet, intake 75-100% of meals, Glucerna shakes in place. Agree with orders Monitoring intakes, weights, labs, skin, supplement tolerance, plan of care Follow up in 7 days
--- NOTE | 2025-03-19 11:54 | PM.CNCAR ---
Assessment and Plan Assessment and plan (1) Ventricular tachycardia seen on cardiac catheterization technician: Code(s): I47.20 - Ventricular tachycardia, unspecified Status: Acute (2) Abnormal nuclear stress test: Code(s): R94.39 - Abnormal result of other cardiovascular function study Status: Acute (3) Peripheral vascular disease: Code(s): I73.9 - Peripheral vascular disease, unspecified Status: Acute Plan 69-year-old man with peripheral vascular disease, history of pulmonary embolism, diabetes, hypertension, hyperlipidemia, and chronic venous stasis/wounds presented with nonsyncopal fall and worsening weakness and during his admission he was found to have nonsustained ventricular tachycardia for which Cardiology has been consulted Nonsustained ventricular tachycardia -will start carvedilol 6.25 mg p.o. b.i.d. -can follow-up in clinic for 30 day event monitor after discharge Abnormal stress test -small area of mild intensity ischemia -start aspirin 81 mg p.o. daily and coreg 6.25mg PO BID -continue atorvastatin 10 mg p.o. qhs for goal LDL less than 70 -will discuss further ischemic eval depending on symptoms and monitor results in clinic once bacteremia clears Peripheral vascular disease -recommend MICHAEL Call if he continues to have episodes of NSVT otherwise, can follow up in cardiology clinic in 2-4 weeks History of Present Illness History of Present Illness Consult date/time: 03/19/25 11:54 Requesting physician: Gemma Gallagher APRN Consult reason: Other Reason For Visit: Sepsis due to cellulitis Narrative: 69-year-old man with peripheral vascular disease, history of pulmonary embolism, diabetes, hypertension, hyperlipidemia, and chronic venous stasis/wounds presented with nonsyncopal fall and worsening weakness and during his admission he was found to have nonsustained ventricular tachycardia for which Cardiology has been consulted. He denies any chest discomfort but has been having shortness of breath with physical activity as well as left CP for the past year. Denies any syncopal events. He is not very functional at baseline. He is able to ambulate within the confines of his home but quickly becomes short of breath. He follows up with his primary care physician who had perform a echocardiogram which was unremarkable and a stress test which did show a small area of mild ischemia. He is currently hospitalized and continues to be hospitalized for bacteremia for which Infectious Disease has been consulted. He had no symptoms during his run of nonsustained ventricular tachycardia (19 beats). Review of Systems Cardiovascular: Cardiovascular: Reports as per HPI Respiratory: Respiratory: Reports as per HPI [facility] Past Medical History Medical History Rhinosinusitis Peripheral vascular disease Hx of adenomatous colonic polyps Hematuria MTHFR gene mutation Stasis dermatitis Personal history of pulmonary embolism Pure hypercholesterolemia, unspecified Essential (primary) hypertension Surgical History Surgical History Status post endovenous radiofrequency ablation (RFA) of saphenous vein Hx of cholecystectomy Hx of colonoscopy Family History Family History Mother Family history of malignant neoplasm multiple myeloma Father Family history of diabetes mellitus in first degree relative Family history of type 2 diabetes mellitus Skin cancer Social History Social History Social History: Smoking status: Never smoker Second hand tobacco smoke exposure: No Alcohol intake: never Substance use: never Substance use type: does not use Lack of Transportation: No Lack of Food: Never True Current Housing: I Have Housing Concerned About Future Housing: No Difficulty Paying Gas/Electric Bills: No Difficulty Paying for Meds: No Currently Unemployed: No Education: Decline to Answer Difficulty w/ Childcare or Family Care: No Living arrangements: with family Additional living arrangements comments: with sp Occupation/Education: occupation Gender identity (if verbalized by the patient): Male Sexual Orientation (if Verbalized by the Patient): Straight or Heterosexual Spiritual care concerns: No Meds Home Medications and Allergies Home Medications ?Medication ?Instructions ?Recorded ?Confirmed ?Type atorvastatin 10 mg tablet See Rx Instructions .Route 03/15/24 03/13/25 Rx .COMPLEX #90 tabs apixaban 5 mg tablet (Eliquis) 5 mg PO BID #180 tabs 10/30/24 03/13/25 Rx furosemide 20 mg tablet (Lasix) 20 mg PO QAM #90 tabs 01/04/25 03/13/25 Rx pantoprazole 40 mg tablet,delayed 40 mg PO QAM laryngopharyngeal 02/08/25 03/13/25 Rx release reflux #30 tabs glipizide 5 mg tablet, extended 5 mg PO DAILY #90 tabs 02/21/25 03/13/25 Rx release 24 hr lisinopril 20 mg tablet See Rx Instructions .Route 02/22/25 03/13/25 Rx .COMPLEX #90 tabs metformin 500 mg tablet,extended 1,000 mg PO BID 03/13/25 03/13/25 History release 24 hr Allergies Allergy/AdvReac Type Severity Reaction Status Date / Time No Known Allergies Allergy Verified 02/12/25 13:07 Vital Signs Vital Signs - 24 hr 03/18/25 12:00 03/18/25 12:00 03/18/25 14:00 Temperature 36.4 C L Pulse Rate 73 73 73 Respiratory Rate 14 Blood Pressure 135/64 Pulse Oximetry 96 Oxygen Delivery 03/18/25 20:00 03/18/25 20:00 03/18/25 20:00 Temperature Pulse Rate 82 82 Respiratory Rate Blood Pressure Pulse Oximetry Oxygen Delivery Room Air 03/18/25 20:34 03/19/25 00:00 03/19/25 04:00 Temperature 37.2 C Pulse Rate 65 77 81 Respiratory Rate 18 Blood Pressure 123/57 L Pulse Oximetry 97 Oxygen Delivery 03/19/25 04:52 Temperature 37.1 C Pulse Rate 80 Respiratory Rate 18 Blood Pressure 154/69 H Pulse Oximetry 98 Oxygen Delivery Exam Const: General: comfortable HENMT: Mouth: Yes moist mucous membranes Eyes: EOM: EOMs intact bilaterally Neck: Neck: no JVD Resp: Effort & Inspection: normal respiratory effort Auscultation: clear to auscultation bilaterally Cardio: Rate: regular rate Rhythm: regular rhythm Skin: Wounds: wounds noted Results Labs and Meds 03/19/25 05:29 03/19/25 05:29 Lab results: Cardiac Enzymes 03/19/25 Range/Units 05:29 AST 28 (17-59) U/L CBC 03/19/25 Range/Units 05:29 WBC 10.8 H (4.5-10.0) K/mm3 RBC 4.02 L (4.6-6.20) M/mm3 Hgb 9.0 L (14.0-18.0) g/dL Hct 30.0 L (42.0-52.0) % Plt Count 530 H (150-375) k/mm3 Lymph # (Auto) 1.93 (0.9-3.2) K/mm3 [place] # (Auto) 0.8 H (0.1-0.6) K/mm3 Eos # (Auto) 0.3 (0-0.3) K/mm3 Baso # (Auto) 0.1 (0.0-0.1) K/mm3 Comprehensive Metabolic Panel 03/19/25 Range/Units 05:29 Sodium 134 L (137-145) mmol/L Potassium 4.1 (3.4-5.0) mmol/L Chloride 102 (98-107) mmol/L Carbon Dioxide 28 (22-30) mmol/L BUN 6 L (9-20) mg/dL Creatinine 0.57 L (0.7-1.3) mg/dL Glucose 106 (65-110) mg/dL Calcium 8.1 L (8.4-10.2) mg/dL AST 28 (17-59) U/L ALT 16 (6-50) U/L Alkaline Phosphatase 98 (38-126) U/L Total Protein 6.7 (6.3-8.2) g/dL Albumin 2.6 L (3.5-5.1) g/dL Intake and Output 03/18/25 03/19/25 03/19/25 23:59 07:59 15:59 Intake Total 400 200 Output Total 2400 1300 Balance -2000 -1300 200 Intake: IV 100 ceFAZolin 1 gm In Sodium 100 Chloride 0.9% IV 50 ml @ 100 mls/hr IVPB Q8HR [facility] Rx#: [id number] Oral 300 200 Output: Catheter Urine 2400 1300 External/Condom 2400 1300 Other: # Unmeasured Voids 1
--- NOTE | 2025-03-19 13:59 | WPDIDCN ---
Assessment and Plan Assessment and plan (1) Sepsis: Qualifiers: Sepsis acute organ dysfunction status: without acute organ dysfunction Sepsis type: sepsis due to unspecified organism Qualified Code(s): A41.9 - Sepsis, unspecified organism Code(s): A41.9 - Sepsis, unspecified organism Status: Acute Assessment and Plan: See below Plan ASSESSMENT: 1. MSSA septicemia --Skin-soft tissue source vs. other --No high-grade septicemia or TTE findings to suggest endocarditis 2. Accelerating lumbar back pain since October 2024 --Rule out spondylodiscitis, vertebral osteomyelitis, abscess vs. other 3. Proteus mirabilis LLE wound infection with cellulitis 4. Chronic venous insufficiency with stasis dermatitis LLE>RLE 5. Mild leukocytosis 6. Non-sustained ventricular tachycardia (management as per Cardiology) 7. Tinnitus s/p cochlear implant/device surgery (more than 40 years ago) PLAN: -Await repeat blood cultures from 03/15/25 to document clearance of septicemia -Continue Cefazolin for treatment of MSSA septicemia -Continue Bactrim PO for coverage of Proteus from wound culture -Obtain CT thoracic/lumbosacral spine with IV contrast to evaluate for spinal/paraspinal infection (avoiding MRI for now given history of possible cochlear iimplants/device) -Follow CBC and renal function -Continue local wound care Discussed with patient. All questions answered. HPI Data of Consult Date/Time: 03/19/25 13:59 Requesting Physician: Dinorah Bowles DO Primary Care Provider: Augustine Willett MD Consult Narrative Reason for consult: LLE Cellulitis Narrative: Bernabe Marx Jr. is a 69 year old male admitted with left lower extremity wound with drainage, . He's also noted to have redness, warmth. He reports chronic swelling in legs (LLE>RLE) Wound culture grew Proteus mirabilis. Admission blood culture grew MSSA in one of two sets. TTE without evidence of endocarditis. He was initially treated with Vancomycin IV/Cefepime/Flagyl but was de-escalated to Cefazolin/Bactrim PO on 03/17/25. Repeat blood cultures on 03/15/25 negative for growth thus far. Patient reports accelerating lumbar back pain since October 2024. He denies antecedent injury or history of chronic back pain. He reports having no prosthetic heart valves, joint replacements. He states he had possible cochlear implant or other prosthetic implant placed in ears over 40 years ago for treatment of tinnitus. Review of Systems Review of Systems: All systems reviewed & are unremarkable except as noted in HPI and below PMFSH Past Medical History Medical History Rhinosinusitis Peripheral vascular disease Hx of adenomatous colonic polyps Hematuria MTHFR gene mutation Stasis dermatitis Personal history of pulmonary embolism Pure hypercholesterolemia, unspecified Essential (primary) hypertension Surgical History Surgical History Status post endovenous radiofrequency ablation (RFA) of saphenous vein Hx of cholecystectomy Hx of colonoscopy Family History Family History Mother Family history of malignant neoplasm multiple myeloma Father Family history of diabetes mellitus in first degree relative Family history of type 2 diabetes mellitus Skin cancer Social History Social History Social History: Smoking status: Never smoker Second hand tobacco smoke exposure: No Alcohol intake: never Substance use: never Substance use type: does not use Lack of Transportation: No Lack of Food: Never True Current Housing: I Have Housing Concerned About Future Housing: No Difficulty Paying Gas/Electric Bills: No Difficulty Paying for Meds: No Currently Unemployed: No Education: Decline to Answer Difficulty w/ Childcare or Family Care: No Living arrangements: with family Additional living arrangements comments: with sp Occupation/Education: occupation Gender identity (if verbalized by the patient): Male Sexual Orientation (if Verbalized by the Patient): Straight or Heterosexual Spiritual care concerns: No Meds Home Medications and Allergies Home Medications ?Medication ?Instructions ?Recorded ?Confirmed ?Type atorvastatin 10 mg tablet See Rx Instructions .Route 03/15/24 03/13/25 Rx .COMPLEX #90 tabs apixaban 5 mg tablet (Eliquis) 5 mg PO BID #180 tabs 10/30/24 03/13/25 Rx furosemide 20 mg tablet (Lasix) 20 mg PO QAM #90 tabs 01/04/25 03/13/25 Rx pantoprazole 40 mg tablet,delayed 40 mg PO QAM laryngopharyngeal 02/08/25 03/13/25 Rx release reflux #30 tabs glipizide 5 mg tablet, extended 5 mg PO DAILY #90 tabs 02/21/25 03/13/25 Rx release 24 hr lisinopril 20 mg tablet See Rx Instructions .Route 02/22/25 03/13/25 Rx .COMPLEX #90 tabs metformin 500 mg tablet,extended 1,000 mg PO BID 03/13/25 03/13/25 History release 24 hr Allergies Allergy/AdvReac Type Severity Reaction Status Date / Time No Known Allergies Allergy Verified 02/12/25 13:07 Vital Signs Vital Signs - 24 hr 03/18/25 14:00 03/18/25 20:00 03/18/25 20:00 Temperature 97.5 F L Pulse Rate 73 82 Respiratory Rate 14 Blood Pressure 135/64 Pulse Oximetry 96 Oxygen Delivery Room Air 03/18/25 20:00 03/18/25 20:34 03/19/25 00:00 Temperature 98.9 F Pulse Rate 82 65 77 Respiratory Rate 18 Blood Pressure 123/57 L Pulse Oximetry 97 Oxygen Delivery 03/19/25 04:00 03/19/25 04:52 03/19/25 09:00 Temperature 98.7 F Pulse Rate 81 80 95 Respiratory Rate 18 Blood Pressure 154/69 H Pulse Oximetry 98 Oxygen Delivery Exam Narrative: Gen: NAD Cor: no tachycardia noted Pulm: normal chest wall expansion, no tachypnea Abd: non-distended Back: point lower lumbar spinal TTP; left>right mild lumbar paraspinal TTP LLE: Fading erythema superimposed upon chronic venous insufficiency changes with dermatitis Results Labs 03/19/25 05:29 03/19/25 05:29 Labs: Short CBC 03/19/25 Range/Units 05:29 WBC 10.8 H (4.5-10.0) K/mm3 Hgb 9.0 L (14.0-18.0) g/dL Hct 30.0 L (42.0-52.0) % Plt Count 530 H (150-375) k/mm3 BMP 03/19/25 05:29 Sodium 134 L Potassium 4.1 Chloride 102 Carbon Dioxide 28 BUN 6 L Creatinine 0.57 L Glucose 106 Calcium 8.1 L Liver Function 03/19/25 Range/Units 05:29 Total Bilirubin 0.3 (0.2-1.3) mg/dL AST 28 (17-59) U/L ALT 16 (6-50) U/L Alkaline Phosphatase 98 (38-126) U/L Albumin 2.6 L (3.5-5.1) g/dL
--- NOTE | 2025-03-19 16:20 | PCPTNOTE ---
Patient refused treatment this session due to increased pain and tired from OT this morning as well as transport with radiology.
[2025-03-20] VITALS (13 sets, daily range): BP systolic 129–139; BP diastolic 66–72; PULSE 64–85; RESP 16–18; TEMP 36.4–36.8; O2SAT 93–98
[2025-03-20] MEDS: ACETAMINOPHEN 500 MG TABLET 1000 MG PO ×4 (05:49→23:25)
[2025-03-20] MEDS: ceFAZolin 1 GM in SODIUM CHLORIDE 0.9% IV 50 ML 100 ML IVPB ×3 (05:54→22:37)
[2025-03-20 06:17] LABS: Hematocrit 29.3 % (42.0-52.0); Hemoglobin 8.9 g/dL (14.0-18.0); Immature Granulocyte Percent A 1.0 % (0-0.5); Lymphocytes Absolute Auto 1.87 K/mm3 (0.9-3.2); Mean Corpuscular HGB Conc 30.4 g/dl (32-36); Mean Corpuscular Hemoglobin 22.7 pg (26-34); Mean Corpuscular Volume 74.7 fl (80-100); Nucleated Red Blood Cells Absolute Auto 0.000 K/mm3 (0.0-0.012); Nucleated Red Blood Cells Perc 0.0 % (0.0-0.2); Platelet Count Result 539 k/mm3 (150-375); Red Blood Count 3.92 M/mm3 (4.6-6.20); White Blood Count 9.0 K/mm3 (4.5-10.0)
[2025-03-20 06:43] LABS: Alanine Aminotransferase 17 U/L (6-50); Albumin Level 2.8 g/dL (3.5-5.1); Alkaline Phosphatase 120 U/L (38-126); Anion Gap 5 mmol/L (4-12); Aspartate Amino Transferase 44 U/L (17-59); Bilirubin,Total 0.3 mg/dL (0.2-1.3); Blood Urea Nitrogen 8 mg/dL (9-20); Calcium 8.4 mg/dL (8.4-10.2); Carbon Dioxide 26 mmol/L (22-30); Chloride 102 mmol/L (98-107); Estimated CRCL calculation 143 ml/min; Estimated Glomerular Filt Rate > 60; Glucose 117 mg/dL (65-110); Magnesium 2.4 mg/dL (1.6-2.3); Potassium 4.3 mmol/L (3.4-5.0); Sodium 133 mmol/L (137-145); Total Protein 6.9 g/dL (6.3-8.2)
[2025-03-20 07:07] LABS: Anisocytosis 1+; Hypochromasia 1+
[2025-03-20 07:08] LABS: Burr Cells Occasional; Schistocytes None Seen
--- NOTE | 2025-03-20 08:34 | P.PNIM_ITS ---
Progress Note: A&P Assessment and Plan (1) Cellulitis: Qualifiers: Laterality: left Site of cellulitis: extremity Site of cellulitis of extremity: lower extremity Qualified Code(s): L03.116 - Cellulitis of left lower limb Code(s): L03.90 - Cellulitis, unspecified Status: Acute Assessment and Plan: LLE with mild erythema and drainage, WBC of 16.4 * IV vanc, cefepime Flagyl * Wound culture pending * blood cultures NGTD * Lactic WNL * wound consulted follows O/P * keep legs elevated * wbc slowly improving * AM labs 03/16: LLE appears to have decreased erythema per marker outline, mildly weepy to LLE, TTP -WBC 10.6-->9.5 overnight, now WDL -WC pending, prelim gram neg bacilli, second bottle pending -BC redraw yesterday due to both growing staph aureus -Wound team with orders for silver gel and cover with dressing if areas open 03/17: LLE appears similar today as it did yesterday -WBC with minimal increase overnight, 9.5-->10.3 -WC resulted with morganella morganii, started ancef IV and PO bactrim abx today, recs from ID. ID to see Monday 03/19. -->Vanc, cefepime, and flagyl D/C 03/18: LLE erythema continues to decrease minimally -WBC with minimal increase overnight, 10.3-->10.9 -Continue ancef IV and bactrim PO -ID to see tomorrow 03/19: -WBC 10.8 today -Continue ancef IV and bactrim PO -ID seen today: -Await repeat blood cultures from 03/15/25 to document clearance of septicemia -Continue Cefazolin for treatment of MSSA septicemia -Continue Bactrim PO for coverage of Proteus from wound culture -Obtain CT thoracic/lumbosacral spine with IV contrast to evaluate for spinal/paraspinal infection (avoiding MRI for now given history of possible cochlear iimplants/device) -Follow CBC and renal function -Continue local wound care 03/20: CT yielding: Aggressive process at the L1-2 interspace likely involving discitis, osteomyelitis of both vertebral bodies, and paraspinal phlegmon/developing abscess with possible epidural involvement as well. Correlation with contrast- enhanced lumbar spine MRI suggested. -MRI L-spine ordered today -Spoke to Vineet on the phone, recommended STAT MRI. RN alerted to prioritize MRI worksheet. Issue regarding potential R cochlear implant in distant past, trying to obtain records. ID following, no change of abx now. -Skull XR with no foreign body present, cleared for MRI. Once resulted, will discuss again with Vineet. (2) Stasis dermatitis: Code(s): I87.2 - Venous insufficiency (chronic) (peripheral) Status: Acute Assessment and Plan: * Follows O/P with wound * See Above * wound nurse consult (3) Essential (primary) hypertension: Code(s): I10 - Essential (primary) hypertension Status: Acute Assessment and Plan: * continue Lisinopril * Monitor BP per unit protocol (4) Peripheral vascular disease: Code(s): I73.9 - Peripheral vascular disease, unspecified Status: Acute Assessment and Plan: * Continue Atorvastatin and eliquis 03/16: Per pt, he goes to the outpt wound clinic as needed, last time he went was around x1 month ago (5) Personal history of pulmonary embolism: Code(s): Z86.711 - Personal history of pulmonary embolism Status: Acute Assessment and Plan: * Continue eliquis * monitor H&H 03/16: Per pt, x2 sep occasions, denies DVT hx. (6) Type 2 diabetes mellitus without complications: Code(s): E11.9 - Type 2 diabetes mellitus without complications Status: Acute Assessment and Plan: * Accuchecks ACHS * SSI low dose * hold metformin * hold glipizide * hypoglycemia protocol * diabetic diet 03/15: FBS 88 today, will continue to monitor (7) Fall: Qualifiers: Encounter type: initial encounter Qualified Code(s): W19.XXXA - Unspecified fall, initial encounter Code(s): W19.XXXA - Unspecified fall, initial encounter Status: Acute Assessment and Plan: * PT/OT will likely need rehab placement * patient reports low back pain that is new since fall * x-rays of lumbar spine without acute fracture * adjust pain medications 03/16: Denies pain today. 03/20: Continued lower back pain, see below (8) Generalized weakness: Code(s): R53.1 - Weakness Status: Acute Assessment and Plan: * See Above (9) Anemia: Qualifiers: Anemia type: unspecified type Qualified Code(s): D64.9 - Anemia, unspecified Code(s): D64.9 - Anemia, unspecified Status: Acute Assessment and Plan: Hgb 8.9 no previous HX no evidence of active GIB but does have bleeding from coccyx excoriation * Monitor H&H * Iron panel pending * will continue Eliquis at this time due to HX of PE but may need to hold if Hgb drops 03/16: HGB 7.1-->8.1 overnight, continue to trend -No active bleeding -Iron % 8 today, will give Venofer 500 x1 dose today, repeat tomorrow 03/17: Second venofer given today, hgb remains stable 03/18: Hgb remains stable, continue to trend (10) UTI (urinary tract infection): Code(s): N39.0 - Urinary tract infection, site not specified Status: Acute Assessment and Plan: UA with some suspicion of UTI Leukcytes+ and WBC no bacteria * On IV cefepime for cellulitis de-escalate if culture negative * culture negative, ruled out 03/15: UC negative, resolved. (11) Bacteremia: Code(s): R78.81 - Bacteremia Status: Acute Assessment and Plan: Patient's blood cultures x 2 positive for staph aureus f/u final ID and sensitivities repeat blood cultures ordered continue IV vancomycin and IV cefepime AM labs 03/16: New BC obtained 03/15, pending 03/17: Echo ordered today -Spoke to Dr. Cadena (ID) with updated WC results of morganella morganii with MSSA bacteremia, he recommended discontinuing the vanc, cefepime, and flagyl and started ancef 2g q8h and PO bactrim Echo results: Summary 1. Normal LV size, [id number] LVH, normal LV systolic function, ejection fraction 65-70%. Normal diastolic function. Normal RV size and systolic function. Mild left enlargement. No significant valvular abnormality. No significant pericardial effusion. 03/18: Pending BC -Continue Ancef IV & PO Bactrim -ID consult tomorrow 03/19: BC no growth in 24 hours -Continue Ancef IV & PO Bactrim -Appreciate ID consult recs: -Await repeat blood cultures from 03/15/25 to document clearance of septicemia -Continue Cefazolin for treatment of MSSA septicemia -Continue Bactrim PO for coverage of Proteus from wound culture -Obtain CT thoracic/lumbosacral spine with IV contrast to evaluate for spinal/paraspinal infection (avoiding MRI for now given history of possible cochlear iimplants/device) -Follow CBC and renal function -Continue local wound care L spine CT: Aggressive process at the L1-2 interspace likely involving discitis, osteomyelitis of both vertebral bodies, and paraspinal phlegmon/developing abscess with possible epidural involvement as well. Correlation with contrast- enhanced lumbar spine MRI suggested. -L-spine MRI with contrast ordered () Hypokalemia: Code(s): E87.6 - Hypokalemia Status: Acute Assessment and Plan: 03/16: K 3.2 with AM labs -40 meq IV given 03/14 -Will continue to replenish today with 40meq IV, recheck tomorrow AM -Appetite has been limited due to Mounjaro started in October 2024. Encouraged him to continue to eat and drink while in hospital. 03/17: K 3.3 with AM labs -Pt on furosemide 20mg PO daily -K 40meq PO BID started today 03/18: K 3.8 with AM labs -Continue with K 40meq BID, continue to trend labs 03/19: K 4.1 with AM labs -Continue with K 40meq BID, consider decrease if labs continue to be stable 03/20: K 4.3 with AM labs -Continue with K 40meq BID, consider decrease if labs continue to be stable (13) Ventricular tachycardia seen on flume worker: Code(s): I47.20 - Ventricular tachycardia, unspecified Status: Acute Assessment and Plan: Run of around 20-25 beats seen on tele -Pt asymptomatic, was sleeping during episode -Pt with WDL echo yesterday -Recent stress test 02/21/2025 at this location for [facility]INTER[facility], per pt, old OR found -K has been low, have been repleting since 03/14 -Mag this AM: 2.2 -Cards consulted 03/19: Cards consulted today, appreciate below recs: Nonsustained ventricular tachycardia -will start carvedilol 6.25 mg p.o. b.i.d. -can follow-up in clinic for 30 day event monitor after discharge Abnormal stress test -small area of mild intensity ischemia -start aspirin 81 mg p.o. daily and coreg 6.25mg PO BID -continue atorvastatin 10 mg p.o. qhs for goal LDL less than 70 -will discuss further ischemic eval depending on symptoms and monitor results in clinic once bacteremia clears Peripheral vascular disease -recommend [facility]HA[facility] Call if he continues to have episodes of NSVT otherwise, can follow up in cardiology clinic in 2-4 weeks -ABIs performed today: 1. No significant arterial occlusive disease to either lower limb with normal bilateral TBIs. Plan Continue to treat cellulitis, bacteremia, and new spine abscess. Pending L-spine MRI with NSurg recs once read. Pending repeat BC. SNF placement ([facility]) at discharge, CC for potential IV abx on D/C, ID & cards following Time Spent With Patient Time: 45 Subjective Date/time seen: 03/20/25 1315 Interval history: Patient lying in bed upon my arrival. ID entered the room during my interview. Updated pt on CT results with plan for MRI. Continues to c/o low back pain, PO medications helping. Nsurg also following. Review of Systems Review of Systems: All systems reviewed & are unremarkable except as noted in HPI and below Exam Const: General: comfortable and no acute distress Other: Pleasant chronically ill gentleman, obese HENMT: Mouth: Yes moist mucous membranes Eyes: General: appearance normal, both eyes and all related structures Sclera: sclerae normal Pupils: Equal, round and reactive pupils present Neck: Neck: supple and no JVD Resp: Effort & Inspection: normal respiratory effort Auscultation: clear to auscultation bilaterally Cardio: Rhythm: regular rhythm GI: Auscultation: normal bowel sounds Skin: General skin exam: dry skin, erythema (LLE ) and excoriation Other: Patient with significant excoriation to his abdominal area, dermatitis stasis, minimal drainage Neuro: Cranial nerves: Yes Equal, round and reactive pupils present Speech: normal speech Other: Unable to evaluate gait, pain with and movement to BLE Extrem: General: edema (RLE >LLE 2+) bilateral Other: BLE with erythema and edema (edema R>L), erythema outlined in marker. LLE with breakdown and healing wound with scan to mid swenson lateral aspect Psych: Mental Status: mental status grossly normal Affect: normal affect Objective Data Vital Signs Vital Signs: Vital Signs - 24 hr 03/19/25 09:00 03/19/25 12:00 03/19/25 14:00 Temperature 97.9 F Pulse Rate 95 88 85 Respiratory Rate 18 Blood Pressure 128/68 Pulse Oximetry 97 Oxygen Delivery 03/19/25 16:00 03/19/25 20:00 03/19/25 20:00 Temperature Pulse Rate 89 88 Respiratory Rate Blood Pressure Pulse Oximetry Oxygen Delivery Room Air 03/19/25 21:10 03/20/25 00:00 03/20/25 04:00 Temperature 99.2 F Pulse Rate 84 77 77 Respiratory Rate 16 Blood Pressure 135/61 Pulse Oximetry 93 Oxygen Delivery 03/20/25 04:38 Temperature 97.5 F L Pulse Rate 79 Respiratory Rate 16 Blood Pressure 139/67 Pulse Oximetry 93 Oxygen Delivery Intake/Output Intake/Output: Intake & Output 03/17/25 03/18/25 03/19/2525 23:59 23:59 23:59 23:59 Intake Total 1972.4 1709 1688 200 Output Total 3400 285 3052 1100 [facility] [place]1427.6 -1141 -1362 -900 Meds/Results Medications: Active Medications Generic Name Dose Route Start Last Admin Trade Name Freq PRN Reason Stop Dose Admin Acetaminophen 1,000 mg 03/14/25 13:30 03/20/25 05:49 Acetaminophen 500 Mg Tablet PO 1,000 mg Q6HR EJ Administration Apixaban 5 mg 03/13/25 21:00 03/19/25 21:03 Apixaban 5 Mg Tablet PO 5 mg Q12HR EJ Administration Aspirin 81 mg 03/20/25 09:00 Aspirin 81 Mg Enteric Tablet PO QAM [facility] Atorvastatin Calcium 10 mg 03/13/25 09:00 03/19/25 08:56 Atorvastatin 10 Mg Tablet PO 10 mg DAILY EJ Administration Carvedilol 6.25 mg 03/19/25 21:00 03/19/25 21:04 Carvedilol 6.25 Mg Tablet PO 6.25 mg Q12HR EJ Administration Cyclobenzaprine HCl 10 mg 03/19/25 16:55 Cyclobenzaprine Hcl 10 Mg Tablet PO Q8H PRN Muscle Spasm Dextrose 12.5 gm 03/13/25 08:49 Dextrose 50% 25 Gm/50 Ml Syringe IV PUSH PRN PRN Hypoglycemia Protocol Furosemide 20 mg 03/13/25 09:00 03/19/25 08:56 Furosemide 20 Mg Tablet PO 20 mg QAM [facility] Administration Glucagon 1 mg 03/13/25 08:49 Glucagon For Inj 1 Mg Vial IM PRN PRN Hypoglycemia Protocol Glucose 15 gm 03/13/25 08:49 03/14/25 21:01 Glucose Oral Gel 15 Gm Of Glucse In 37.5 Gm Tube PO 15 gm PRN PRN Administration Hypoglycemia Protocol Dextrose 1,000 mls @ 100 mls/hr 03/13/25 08:49 Dextrose 5% 1,000 Ml IVPB PRN PRN Hypoglycemia Protocol Cefazolin Sodium 1 gm/ Sodium 50 mls @ 100 mls/hr 03/17/25 14:00 03/20/25 05:54 Chloride IVPB 100 mls/hr Q8HR EJ Administration Insulin Aspart 2 - 5 units 03/13/25 12:00 03/20/25 08:31 Insulin Aspart (*Bkc) 100 Units/Ml SUB-Q Not Given TIDWM [facility] Protocol Lidocaine 2 patch 03/14/25 09:00 03/19/25 08:57 Lidocaine 5% Patch TRANSDERM 2 patch DAILY EJ Administration Lisinopril 20 mg 03/13/25 21:00 03/19/25 21:04 Lisinopril 20 Mg Tablet PO 20 mg HS EJ Administration Ondansetron HCl 4 mg 03/13/25 08:49 Ondansetron Inj 4 Mg/2 Ml Vial IV PUSH Q6H PRN Nausea And Vomiting Oxycodone HCl 5 mg 03/14/25 13:14 03/19/25 21:03 Oxycodone Hcl (*Crx) 5 Mg Tab Ir PO 5 mg Q4H PRN Administration Pain Rated 7-10 Pantoprazole Sodium 40 mg 03/13/25 08:00 03/19/25 08:56 Pantoprazole 40 Mg Tablet PO 40 mg DAILY@0800 EJ Administration Potassium Chloride 40 meq 03/17/25 09:25 03/19/25 15:53 Potassium Chloride 20 Meq Packet (For Liquid) PO 40 meq BID EJ Administration Trimethoprim/Sulfamethoxazole 1 tab 03/17/25 21:00 03/19/25 21:03 Sulfamethoxazole/Trimethoprim 800/160 Mg Ds Tablet PO 1 tab Q12HR EJ Administration Radiology Results: ITS Impressions Elbow X-Ray 03/13/25 07:04 Impression: 1: No acute bone or joint abnormality. Chest X-Ray 03/13/25 07:05 IMPRESSION: 1: NO ACUTE CARDIOPULMONARY DISEASE. Tibia/Fibula X-Ray 03/13/25 07:06 Impression: 1: Mild-moderate polyarticular osteoarthritis. Lumbar Spine X-Ray 03/14/25 18:51 IMPRESSION: Normal lumbar spine. Ankle Brachial Index 03/19/25 14:34 IMPRESSION: 1. No significant arterial occlusive disease to either lower limb with normal bilateral TBIs. Labs Labs: Laboratory Results - last 24 hr 03/19/25 03/19/25 03/19/25 11:15 16:26 21:12 WBC RBC Hgb Hct MCV MCH MCHC RDW Plt Count MPV Immature Gran % (Auto) Neut % (Auto) Lymph % (Auto) [place] % (Auto) Eos % (Auto) Baso % (Auto) Lymph # (Auto) [place] # (Auto) Eos # (Auto) Baso # (Auto) Abs Immat Gran (auto) Absolute Neuts (auto) Absolute Nucleated RBC Band Neutrophils % Nucleated RBC % Platelet Estimate Hypochromasia Anisocytosis Ethel Cells Schistocytes Sodium Potassium Chloride Carbon Dioxide Anion Gap BUN Creatinine Estim Creat Clear Calc Estimated GFR Glucose POC Capillary Glucose 161 H 160 H 138 H Calcium Magnesium Total Bilirubin AST ALT Alkaline Phosphatase Total Protein Albumin 03/20/25 03/20/25 06:06 08:12 WBC 9.0 RBC 3.92 L Hgb 8.9 L Hct 29.3 L MCV 74.7 L MCH 22.7 L MCHC 30.4 L RDW 19.7 H Plt Count 539 H MPV 8.4 Immature Gran % (Auto) 1.0 H Neut % (Auto) 64.5 Lymph % (Auto) 20.8 [place] % (Auto) 9.0 H Eos % (Auto) 3.9 Baso % (Auto) 0.8 Lymph # (Auto) 1.87 [place] # (Auto) 0.8 H Eos # (Auto) 0.4 H Baso # (Auto) 0.1 Abs Immat Gran (auto) 0.09 H Absolute Neuts (auto) 5.8 Absolute Nucleated RBC 0.000 Band Neutrophils % Not Reportable Nucleated RBC % 0.0 Platelet Estimate Increased Hypochromasia 1+ Anisocytosis 1+ Ethel Cells Occasional Schistocytes None seen Sodium 133 L Potassium 4.3 Chloride 102 Carbon Dioxide 26 Anion Gap 5 BUN 8 L Creatinine 0.58 L Estim Creat Clear Calc 143 Estimated GFR > 60 Glucose 117 H POC Capillary Glucose 129 H Calcium 8.4 Magnesium 2.4 H Total Bilirubin 0.3 AST 44 ALT 17 Alkaline Phosphatase 120 Total Protein 6.9 Albumin 2.8 L Quality VTE Prophylaxis VTE prophylaxis: pharmacologic ordered
[2025-03-20] MEDS: PANTOPRAZOLE 40 MG TABLET PO (09:28)
[2025-03-20] MEDS: ASPIRIN 81 MG ENTERIC TABLET PO (09:28)
[2025-03-20] MEDS: SULFAMETHOXAZOLE/TRIMETHOPRIM 800/160 MG DS TABLET 1 TAB PO ×2 (09:28→20:06)
[2025-03-20] MEDS: FUROSEMIDE 20 MG TABLET PO (09:28)
[2025-03-20] MEDS: ATORVASTATIN 10 MG TABLET PO (09:28)
[2025-03-20] MEDS: APIXABAN 5 MG TABLET PO ×2 (09:28→20:06)
[2025-03-20] MEDS: LIDOCAINE 5% PATCH 2 PATCH TRANSDERM (09:29)
[2025-03-20] MEDS: POTASSIUM CHLORIDE 20 MEQ PACKET (FOR LIQUID) 40 MEQ PO ×2 (09:29→18:43)
--- NOTE | 2025-03-20 09:47 | PM.PNCARD ---
Progress Note: A&P Assessment and Plan (1) Ventricular tachycardia seen on registered nurse cardiac telemetry: Code(s): I47.20 - Ventricular tachycardia, unspecified Status: Acute (2) Abnormal nuclear stress test: Code(s): R94.39 - Abnormal result of other cardiovascular function study Status: Acute (3) Peripheral vascular disease: Code(s): I73.9 - Peripheral vascular disease, unspecified Status: Acute Plan 69-year-old man with peripheral vascular disease, history of pulmonary embolism, diabetes, hypertension, hyperlipidemia, and chronic venous stasis/wounds presented with nonsyncopal fall and worsening weakness and during his admission he was found to have nonsustained ventricular tachycardia for which Cardiology was consulted Nonsustained ventricular tachycardia - was started on carvedilol 6.25 mg p.o. b.i.d. and tolerating well - no furtther NSVT noted overnight - his K remains >4 and Mag is >2, will monitor - echo showed normal EF of 65-70% 01/2025 - can follow-up in clinic for 30 day event monitor after discharge Abnormal stress test -small area of mild intensity ischemia -started aspirin 81 mg p.o. daily and coreg 6.25mg PO BID -continue atorvastatin 10 mg p.o. qhs for goal LDL less than 70 -will discuss further ischemic eval depending on symptoms and monitor results in clinic once bacteremia clears (can be done on OP basis) Peripheral vascular disease - MICHAEL done and did not demonstrate any significant arterial disease. - will follow as needed, please call with any recurrent NSVT - will plan for OP 30 day monitor - can follow up in office in 2-4 weeks Subjective Date/time seen: 03/20/25 09:47 Interval history: Date of Service 03/20/25: patient is lying in bed, states he just got back from CT and feeling uncomfortable. He reports chronic shortness of breath. No chest pain or pressure. Review of Systems Review of Systems: All systems reviewed & are unremarkable except as noted in HPI and below Exam Const: General: comfortable HENMT: Mouth: Yes moist mucous membranes Eyes: EOM: EOMs intact bilaterally Neck: Neck: no JVD Resp: Effort & Inspection: normal respiratory effort Auscultation: clear to auscultation bilaterally Cardio: Rate: regular rate Rhythm: regular rhythm Skin: General skin exam: wounds noted Wounds: wounds noted Objective Data Vital Signs Vital Signs: Vital Signs - 24 hr 03/19/25 12:00 03/19/25 14:00 03/19/25 16:00 Temperature 36.6 C Pulse Rate 88 85 89 Respiratory Rate 18 Blood Pressure 128/68 Pulse Oximetry 97 Oxygen Delivery 03/19/25 20:00 03/19/25 20:00 03/19/25 21:10 Temperature 37.3 C Pulse Rate 88 84 Respiratory Rate 16 Blood Pressure 135/61 Pulse Oximetry 93 Oxygen Delivery Room Air 03/20/25 00:00 03/20/25 04:00 03/20/25 04:38 Temperature 36.4 C L Pulse Rate 77 77 79 Respiratory Rate 16 Blood Pressure 139/67 Pulse Oximetry 93 Oxygen Delivery 03/20/25 09:28 Temperature Pulse Rate 79 Respiratory Rate Blood Pressure Pulse Oximetry Oxygen Delivery Intake/Output Intake/Output: Intake & Output 03/17/25 03/18/25 03/19/25 03/20/25 23:59 23:59 23:59 23:59 Intake Total 1972.4 1709 1688 200 Output Total 3400 2850 3050 1100 [facility] -1427.6 -1141 -[phone] Meds/Results Medications: Active Medications Generic Name Dose Route Start Last Admin Trade Name Freq PRN Reason Stop Dose Admin Acetaminophen 1,000 mg 03/14/25 13:30 03/20/25 05:49 Acetaminophen 500 Mg Tablet PO 1,000 mg Q6HR EJ Administration Apixaban 5 mg 03/13/25 21:00 03/20/25 09:28 Apixaban 5 Mg Tablet PO 5 mg Q12HR EJ Administration Aspirin 81 mg 03/20/25 09:00 03/20/25 09:28 Aspirin 81 Mg Enteric Tablet PO 81 mg QAM EJ Administration Atorvastatin Calcium 10 mg 03/13/25 09:00 03/20/25 09:28 Atorvastatin 10 Mg Tablet PO 10 mg DAILY EJ Administration Carvedilol 6.25 mg 03/19/25 21:00 03/20/25 09:28 Carvedilol 6.25 Mg Tablet PO 6.25 mg Q12HR EJ Administration Cyclobenzaprine HCl 10 mg 03/19/25 16:55 Cyclobenzaprine Hcl 10 Mg Tablet PO Q8H PRN Muscle Spasm Dextrose 12.5 gm 03/13/25 08:49 Dextrose 50% 25 Gm/50 Ml Syringe IV PUSH PRN PRN Hypoglycemia Protocol Furosemide 20 mg 03/13/25 09:00 03/20/25 09:28 Furosemide 20 Mg Tablet PO 20 mg QAM EJ Administration Glucagon 1 mg 03/13/25 08:49 Glucagon For Inj 1 Mg Vial IM PRN PRN Hypoglycemia Protocol Glucose 15 gm 03/13/25 08:49 03/14/25 21:01 Glucose Oral Gel 15 Gm Of Glucse In 37.5 Gm Tube PO 15 gm PRN PRN Administration Hypoglycemia Protocol Dextrose 1,000 mls @ 100 mls/hr 03/13/25 08:49 Dextrose 5% 1,000 Ml IVPB PRN PRN Hypoglycemia Protocol Cefazolin Sodium 1 gm/ Sodium 50 mls @ 100 mls/hr 03/17/25 14:00 03/20/25 05:54 Chloride IVPB 100 mls/hr Q8HR EJ Administration Insulin Aspart 2 - 5 units 03/13/25 12:00 03/20/25 08:31 Insulin Aspart (*Bkc) 100 Units/Ml SUB-Q Not Given TIDWM PENDING SALE TO [facility] Protocol Lidocaine 2 patch 03/14/25 09:00 03/20/25 09:29 Lidocaine 5% Patch TRANSDERM 2 patch DAILY EJ Administration Lisinopril 20 mg 03/13/25 21:00 03/19/25 21:04 Lisinopril 20 Mg Tablet PO 20 mg HS EJ Administration Ondansetron HCl 4 mg 03/13/25 08:49 Ondansetron Inj 4 Mg/2 Ml Vial IV PUSH Q6H PRN Nausea And Vomiting Oxycodone HCl 5 mg 03/14/25 13:14 03/19/25 21:03 Oxycodone Hcl (*Crx) 5 Mg Tab Ir PO 5 mg Q4H PRN Administration Pain Rated 7-10 Pantoprazole Sodium 40 mg 03/13/25 08:00 03/20/25 09:28 Pantoprazole 40 Mg Tablet PO 40 mg DAILY@0800 EJ Administration Potassium Chloride 40 meq 03/17/25 09:25 03/20/25 09:29 Potassium Chloride 20 Meq Packet (For Liquid) PO 40 meq BID EJ Administration Trimethoprim/Sulfamethoxazole 1 tab 03/17/25 21:00 03/20/25 09:28 Sulfamethoxazole/Trimethoprim 800/160 Mg Ds Tablet PO 1 tab Q12HR EJ Administration Radiology Results: ITS Impressions Elbow X-Ray 03/13/25 07:04 Impression: 1: No acute bone or joint abnormality. Chest X-Ray 03/13/25 07:05 IMPRESSION: 1: NO ACUTE CARDIOPULMONARY DISEASE. Tibia/Fibula X-Ray 03/13/25 07:06 Impression: 1: Mild-moderate polyarticular osteoarthritis. Lumbar Spine X-Ray 03/14/25 18:51 IMPRESSION: Normal lumbar spine. Ankle Brachial Index 03/19/25 14:34 IMPRESSION: 1. No significant arterial occlusive disease to either lower limb with normal bilateral TBIs. Lumbar Spine CT 03/20/25 08:45 IMPRESSION: Aggressive process at the L1-2 interspace likely involving discitis, osteomyelitis of both vertebral bodies, and paraspinal phlegmon/developing abscess with possible epidural involvement as well. Correlation with contrast-enhanced lumbar spine MRI suggested. Labs Labs: Laboratory Results - last 24 hr 03/19/25 03/19/25 03/19/25 11:15 16:26 21:12 WBC RBC Hgb Hct MCV MCH MCHC RDW Plt Count MPV Immature Gran % (Auto) Neut % (Auto) Lymph % (Auto) [place] % (Auto) Eos % (Auto) Baso % (Auto) Lymph # (Auto) [place] # (Auto) Eos # (Auto) Baso # (Auto) Abs Immat Gran (auto) Absolute Neuts (auto) Absolute Nucleated RBC Band Neutrophils % Nucleated RBC % Platelet Estimate Hypochromasia Anisocytosis Ada Cells Schistocytes Sodium Potassium Chloride Carbon Dioxide Anion Gap BUN Creatinine Estim Creat Clear Calc Estimated GFR Glucose POC Capillary Glucose 161 H 160 H 138 H Calcium Magnesium Total Bilirubin AST ALT Alkaline Phosphatase Total Protein Albumin 03/20/25 03/20/25 06:06 08:12 WBC 9.0 RBC 3.92 L Hgb 8.9 L Hct 29.3 L MCV 74.7 L MCH 22.7 L MCHC 30.4 L RDW 19.7 H Plt Count 539 H MPV 8.4 Immature Gran % (Auto) 1.0 H Neut % (Auto) 64.5 Lymph % (Auto) 20.8 [place] % (Auto) 9.0 H Eos % (Auto) 3.9 Baso % (Auto) 0.8 Lymph # (Auto) 1.87 [place] # (Auto) 0.8 H Eos # (Auto) 0.4 H Baso # (Auto) 0.1 Abs Immat Gran (auto) 0.09 H Absolute Neuts (auto) 5.8 Absolute Nucleated RBC 0.000 Band Neutrophils % Not Reportable Nucleated RBC % 0.0 Platelet Estimate Increased Hypochromasia 1+ Anisocytosis 1+ [place]cia Cells Occasional Schistocytes None seen Sodium 133 L Potassium 4.3 Chloride 102 Carbon Dioxide 26 Anion Gap 5 BUN 8 L Creatinine 0.58 L Estim Creat Clear Calc 143 Estimated GFR > 60 Glucose 117 H POC Capillary Glucose 129 H Calcium 8.4 Magnesium 2.4 H Total Bilirubin 0.3 AST 44 ALT 17 Alkaline Phosphatase 120 Total Protein 6.9 Albumin 2.8 L
[2025-03-20] MEDS: CYCLOBENZAPRINE HCL 10 MG TABLET PO ×2 (11:03→20:11)
[2025-03-20] MEDS: oxyCODONE HCL (*CRX) 5 MG TAB IR PO ×2 (11:03→18:44)
--- NOTE | 2025-03-20 11:12 | PCOTNOTE ---
Attempted to see Patient at this time. Patient states he recently returned to his room from having a CAT scan done. Patient would like to get results prior to moving today due to having so much pain. Will try back at a later time.
[2025-03-20] MEDS: INSULIN ASPART (*BKC) 100 UNITS/ML SUB-Q (11:22)
--- NOTE | 2025-03-20 12:20 | WPDINFPN2 ---
Progress Note: A&P Assessment and Plan (1) Septic discitis of lumbar region: Code(s): M46.46 - Discitis, unspecified, lumbar region Status: Acute Assessment and Plan: See below (2) Osteomyelitis of lumbar vertebra: Code(s): M46.26 - Osteomyelitis of vertebra, lumbar region Status: Acute Assessment and Plan: See below (3) Paraspinal abscess: Code(s): M46.20 - Osteomyelitis of vertebra, site unspecified Status: Acute Assessment and Plan: See below (4) Epidural abscess: Code(s): G06.2 - Extradural and subdural abscess, unspecified Status: Acute Assessment and Plan: See below Plan ASSESSMENT: 1. MSSA septicemia --Skin-soft tissue source vs. other --No high-grade septicemia or TTE findings to suggest endocarditis 2. Acute L1/2 discitis/osteomyelitis with paraspinal and possible epidural extension --Suspect this is source of MSSA septicemia 3. Accelerating lumbar back pain since October 2024 --CT LS spine with L1/2 discitis/osteomyelitis with paraspinal and possible epidural extension 4. Proteus mirabilis LLE wound infection with cellulitis 5. Chronic venous insufficiency with stasis dermatitis LLE>RLE 6. Mild leukocytosis 7. Non-sustained ventricular tachycardia (management as per Cardiology) 78. Tinnitus s/p cochlear implant/device surgery (more than 40 years ago) PLAN: -Recommend Neurosurgery or Ortho Spine consultation given findings of discitis/osteomyelitis with possible epidural extension -Await repeat blood cultures from 03/15/25 to document clearance of septicemia -Continue Cefazolin for treatment of MSSA septicemia -Continue Bactrim PO for coverage of Proteus from wound culture -Follow CBC and renal function -Continue local wound care Discussed with patient and at bedside. All questions answered. Discussed with primary care attending physician this afternoon Subjective Date/time seen: 03/20/25 12:20 Interval history: Patient afebrile. He is requiring more pain medical for lumbar back pain. CT spine demonstrates acute L1/2 discitis/osteomyelitis with possible paraspinal and epidural extension. Review of Systems Review of Systems: All systems reviewed & are unremarkable except as noted in HPI and below Exam Narrative: Gen: NAD Cor: no tachycardia noted Pulm: normal chest wall expansion, no tachypnea Abd: non-distended Back: point lower lumbar spinal TTP; left>right mild lumbar paraspinal TTP LLE: Fading erythema superimposed upon chronic venous insufficiency changes with dermatitis Objective Data Vital Signs Vital Signs: Vital Signs - 24 hr 03/19/25 14:00 03/19/25 16:00 03/19/25 20:00 Temperature 97.9 F Pulse Rate 85 89 Respiratory Rate 18 Blood Pressure 128/68 Pulse Oximetry 97 Oxygen Delivery Room Air 03/19/25 20:00 03/19/25 21:10 03/20/25 00:00 Temperature 99.2 F Pulse Rate 88 84 77 Respiratory Rate 16 Blood Pressure 135/61 Pulse Oximetry 93 Oxygen Delivery 03/20/25 04:00 03/20/25 04:38 03/20/25 08:01 Temperature 97.5 F L Pulse Rate 77 79 82 Respiratory Rate 16 Blood Pressure 139/67 Pulse Oximetry 93 Oxygen Delivery 03/20/25 09:28 Temperature Pulse Rate 79 Respiratory Rate Blood Pressure Pulse Oximetry Oxygen Delivery Intake/Output Intake/Output: Intake & Output 03/17/25 03/18/25 03/19/25 03/20/25 23:59 23:59 23:59 23:59 Intake Total 1972.4 1709 1688 200 Output Total 3400 2850 3050 1100 [facility] -1427.6 -1141 -1362 -900 Meds/Results Medications: Active Medications Generic Name Dose Route Start Last Admin Trade Name Paulq PRN Reason Stop Dose Admin Acetaminophen 1,000 mg 03/14/25 13:30 03/20/25 11:25 Acetaminophen 500 Mg Tablet PO 1,000 mg Q6HR EJ Administration Apixaban 5 mg 03/13/25 21:00 03/20/25 09:28 Apixaban 5 Mg Tablet PO 5 mg Q12HR EJ Administration Aspirin 81 mg 03/20/25 09:00 03/20/25 09:28 Aspirin 81 Mg Enteric Tablet PO 81 mg QAM EJ Administration Atorvastatin Calcium 10 mg 03/13/25 09:00 03/20/25 09:28 Atorvastatin 10 Mg Tablet PO 10 mg DAILY EJ Administration Carvedilol 6.25 mg 03/19/25 21:00 03/20/25 09:28 Carvedilol 6.25 Mg Tablet PO 6.25 mg Q12HR EJ Administration Cyclobenzaprine HCl 10 mg 03/19/25 16:55 03/20/25 11:03 Cyclobenzaprine Hcl 10 Mg Tablet PO 10 mg Q8H PRN Administration Muscle Spasm Dextrose 12.5 gm 03/13/25 08:49 Dextrose 50% 25 Gm/50 Ml Syringe IV PUSH PRN PRN Hypoglycemia Protocol Furosemide 20 mg 03/13/25 09:00 03/20/25 09:28 Furosemide 20 Mg Tablet PO 20 mg QAM EJ Administration Glucagon 1 mg 03/13/25 08:49 Glucagon For Inj 1 Mg Vial IM PRN PRN Hypoglycemia Protocol Glucose 15 gm 03/13/25 08:49 03/14/25 21:01 Glucose Oral Gel 15 Gm Of Glucse In 37.5 Gm Tube PO 15 gm PRN PRN Administration Hypoglycemia Protocol Dextrose 1,000 mls @ 100 mls/hr 03/13/25 08:49 Dextrose 5% 1,000 Ml IVPB PRN PRN Hypoglycemia Protocol Cefazolin Sodium 1 gm/ Sodium 50 mls @ 100 mls/hr 03/17/25 14:00 03/20/25 05:54 Chloride IVPB 100 mls/hr Q8HR EJ Administration Insulin Aspart 2 - 5 units 03/13/25 12:00 03/20/25 11:22 Insulin Aspart (*Bkc) 100 Units/Ml SUB-Q 2 units TIDWM EJ Administration Protocol Lidocaine 2 patch 03/14/25 09:00 03/20/25 09:29 Lidocaine 5% Patch TRANSDERM 2 patch DAILY EJ Administration Lisinopril 20 mg 03/13/25 21:00 03/19/25 21:04 Lisinopril 20 Mg Tablet PO 20 mg HS EJ Administration Ondansetron HCl 4 mg 03/13/25 08:49 Ondansetron Inj 4 Mg/2 Ml Vial IV PUSH Q6H PRN Nausea And Vomiting Oxycodone HCl 5 mg 03/14/25 13:14 03/20/25 11:03 Oxycodone Hcl (*Crx) 5 Mg Tab Ir PO 5 mg Q4H PRN Administration Pain Rated 7-10 Pantoprazole Sodium 40 mg 03/13/25 08:00 03/20/25 09:28 Pantoprazole 40 Mg Tablet PO 40 mg DAILY@0800 EJ Administration Potassium Chloride 40 meq 03/17/25 09:25 03/20/25 09:29 Potassium Chloride 20 Meq Packet (For Liquid) PO 40 meq BID EJ Administration Trimethoprim/Sulfamethoxazole 1 tab 03/17/25 21:00 03/20/25 09:28 Sulfamethoxazole/Trimethoprim 800/160 Mg Ds Tablet PO 1 tab Q12HR EJ Administration Radiology Results: ITS Impressions Elbow X-Ray 03/13/25 07:04 Impression: 1: No acute bone or joint abnormality. Chest X-Ray 03/13/25 07:05 IMPRESSION: 1: NO ACUTE CARDIOPULMONARY DISEASE. Tibia/Fibula X-Ray 03/13/25 07:06 Impression: 1: Mild-moderate polyarticular osteoarthritis. Lumbar Spine X-Ray 03/14/25 18:51 IMPRESSION: Normal lumbar spine. Ankle Brachial Index 03/19/25 14:34 IMPRESSION: 1. No significant arterial occlusive disease to either lower limb with normal bilateral TBIs. Lumbar Spine CT 03/20/25 08:45 IMPRESSION: Aggressive process at the L1-2 interspace likely involving discitis, osteomyelitis of both vertebral bodies, and paraspinal phlegmon/developing abscess with possible epidural involvement as well. Correlation with contrast-enhanced lumbar spine MRI suggested. Labs Labs: Laboratory Results - last 24 hr 03/19/25 03/19/25 03/20/25 16:26 21:12 06:06 WBC 9.0 RBC 3.92 L Hgb 8.9 L Hct 29.3 L MCV 74.7 L MCH 22.7 L MCHC 30.4 L RDW 19.7 H Plt Count 539 H MPV 8.4 Immature Gran % (Auto) 1.0 H Neut % (Auto) 64.5 Lymph % (Auto) 20.8 [place] % (Auto) 9.0 H Eos % (Auto) 3.9 Baso % (Auto) 0.8 Lymph # (Auto) 1.87 [place] # (Auto) 0.8 H Eos # (Auto) 0.4 H Baso # (Auto) 0.1 Abs Immat Gran (auto) 0.09 H Absolute Neuts (auto) 5.8 Absolute Nucleated RBC 0.000 Band Neutrophils % Not Reportable Nucleated RBC % 0.0 Platelet Estimate Increased Hypochromasia 1+ Anisocytosis 1+ [place] Cells Occasional Schistocytes None seen Sodium 133 L Potassium 4.3 Chloride 102 Carbon Dioxide 26 Anion Gap 5 BUN 8 L Creatinine 0.58 L Estim Creat Clear Calc 143 Estimated GFR > 60 Glucose 117 H POC Capillary Glucose 160 H 138 H Calcium 8.4 Magnesium 2.4 H Total Bilirubin 0.3 AST 44 ALT 17 Alkaline Phosphatase 120 Total Protein 6.9 Albumin 2.8 L 03/20/25 03/20/25 08:12 11:13 WBC RBC Hgb Hct MCV MCH MCHC RDW Plt Count MPV Immature Gran % (Auto) Neut % (Auto) Lymph % (Auto) [place] % (Auto) Eos % (Auto) Baso % (Auto) Lymph # (Auto) [place] # (Auto) Eos # (Auto) Baso # (Auto) Abs Immat Gran (auto) Absolute Neuts (auto) Absolute Nucleated RBC Band Neutrophils % Nucleated RBC % Platelet Estimate Hypochromasia Anisocytosis [place] Cells Schistocytes Sodium Potassium Chloride Carbon Dioxide Anion Gap BUN Creatinine Estim Creat Clear Calc Estimated GFR Glucose POC Capillary Glucose 129 H 225 H Calcium Magnesium Total Bilirubin AST ALT Alkaline Phosphatase Total Protein Albumin
--- NOTE | 2025-03-20 12:50 | PCOTNOTE ---
Patient declined P.M. treatment session. Patient states he is supposed to be having additional testing done. Patient declines, states he has less pain in the bed and would like the tests to be done before moving.
[2025-03-20] MEDS: diazePAM INJ (*CRX) 10 MG/2 ML SYRINGE 5 MG IV PUSH (16:03)
[2025-03-21] VITALS (12 sets, daily range): BP systolic 110–129; BP diastolic 57–76; PULSE 68–79; RESP 16–20; TEMP 36.4–36.6; O2SAT 94–96
[2025-03-21] MEDS: ACETAMINOPHEN 500 MG TABLET 1000 MG PO ×4 (05:19→23:59)
[2025-03-21] MEDS: ceFAZolin 1 GM in SODIUM CHLORIDE 0.9% IV 50 ML 100 ML IVPB ×3 (05:19→20:34)
[2025-03-21 08:18] LABS: Hematocrit 30.4 % (42.0-52.0); Hemoglobin 9.1 g/dL (14.0-18.0); Immature Granulocyte Percent A 0.9 % (0-0.5); Lymphocytes Absolute Auto 1.59 K/mm3 (0.9-3.2); Mean Corpuscular HGB Conc 29.9 g/dl (32-36); Mean Corpuscular Hemoglobin 22.7 pg (26-34); Mean Corpuscular Volume 75.8 fl (80-100); Nucleated Red Blood Cells Absolute Auto 0.000 K/mm3 (0.0-0.012); Nucleated Red Blood Cells Perc 0.0 % (0.0-0.2); Platelet Count Result 570 k/mm3 (150-375); Red Blood Count 4.01 M/mm3 (4.6-6.20); White Blood Count 8.7 K/mm3 (4.5-10.0)
[2025-03-21] MEDS: SULFAMETHOXAZOLE/TRIMETHOPRIM 800/160 MG DS TABLET 1 TAB PO ×2 (08:22→20:37)
[2025-03-21] MEDS: FUROSEMIDE 20 MG TABLET PO (08:22)
[2025-03-21] MEDS: ATORVASTATIN 10 MG TABLET PO (08:22)
[2025-03-21] MEDS: POTASSIUM CHLORIDE 20 MEQ PACKET (FOR LIQUID) 40 MEQ PO (08:22)
[2025-03-21] MEDS: ASPIRIN 81 MG ENTERIC TABLET PO (08:22)
[2025-03-21] MEDS: PANTOPRAZOLE 40 MG TABLET PO (08:23)
[2025-03-21] MEDS: APIXABAN 5 MG TABLET PO ×2 (08:28→20:48)
[2025-03-21] MEDS: LIDOCAINE 5% PATCH 2 PATCH TRANSDERM (08:28)
[2025-03-21 08:37] LABS: Alanine Aminotransferase 19 U/L (6-50); Albumin Level 2.9 g/dL (3.5-5.1); Alkaline Phosphatase 119 U/L (38-126); Anion Gap 6 mmol/L (4-12); Aspartate Amino Transferase 42 U/L (17-59); Bilirubin,Total 0.3 mg/dL (0.2-1.3); Blood Urea Nitrogen 8 mg/dL (9-20); Calcium 8.5 mg/dL (8.4-10.2); Carbon Dioxide 27 mmol/L (22-30); Chloride 102 mmol/L (98-107); Estimated CRCL calculation 132 ml/min; Estimated Glomerular Filt Rate > 60; Glucose 106 mg/dL (65-110); Magnesium 2.6 mg/dL (1.6-2.3); Potassium 4.0 mmol/L (3.4-5.0); Sodium 135 mmol/L (137-145); Total Protein 7.1 g/dL (6.3-8.2)
[2025-03-21 09:01] LABS: Hypochromasia 2+; Target Cells Occasional
[2025-03-21 09:02] LABS: Schistocytes Occasional
[2025-03-21 09:04] LABS: Anisocytosis 2+
--- NOTE | 2025-03-21 09:40 | WPDNEUROSGCN ---
Assessment and Plan Assessment and plan (1) Sepsis: Qualifiers: Sepsis acute organ dysfunction status: without acute organ dysfunction Sepsis type: sepsis due to unspecified organism Qualified Code(s): A41.9 - Sepsis, unspecified organism Code(s): A41.9 - Sepsis, unspecified organism Status: Acute (2) Cellulitis: Qualifiers: Laterality: left Site of cellulitis: extremity Site of cellulitis of extremity: lower extremity Qualified Code(s): L03.116 - Cellulitis of left lower limb Code(s): L03.90 - Cellulitis, unspecified Status: Acute (3) Bacteremia: Code(s): R78.81 - Bacteremia Status: Acute (4) Septic discitis of lumbar region: Code(s): M46.46 - Discitis, unspecified, lumbar region Status: Acute (5) Osteomyelitis of lumbar vertebra: Code(s): M46.26 - Osteomyelitis of vertebra, lumbar region Status: Acute (6) Paraspinal abscess: Code(s): M46.20 - Osteomyelitis of vertebra, site unspecified Status: Acute Plan Bernabe is a 69-year-old gentleman with a 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 There may be phlegmon in the canal and at least moderate stenosis, luckily below the conus at that level. There are no clear fluid collections within the central canal in the epidural space. Just likely phlegmon. The important part of his treatment is appropriate antibiotics. There will be significant pain associated with this problem for some time. Physical occupational therapy should be involved in his care and he can enjoy out of bed activity. This will help us understand his status. Surgery as a questionable role at this point. No clear focal neurologic deficit or myelopathy exists. I doubt it would have any impact on the infection itself, or its natural history. I will discuss this with his other treating physicians. Consult date: 03/21/25 HPI: Bernabe Marx Jr. is a 69 year old male with past history of diabetes, hypertension, HLD, PVD, PEs, venous stasis bilateral lower extremities and chronic wounds bilateral who normally lives at a facility who experienced a fall and was brought to [place] emergency room for further evaluation and treatment. He was found to have a draining wound on his legs were he has a chronic cellulitis and also bacteremia. The wound cultured Proteus mirabilis and MSSA was found in his blood. He is being treated with tailor antibiotics. Because of complaints of chronic and perhaps escalating back pain an MRI of the lumbar spine after a CT was done was obtained and demonstrated L1-2 diskitis osteomyelitis with some phlegmon extending into epidural space and some destruction of the adjoining endplates of the L1 and L2 vertebral bodies. He does not report specific muscle group weakness of either lower extremity. He does not report new bowel or bladder difficulty. He has not been ambulatory here and has a urine retention system in place. He states that he can walk but has significant pain that causes him to of fall potentially or at least feel weak. Review of Systems Review of Systems: Const All systems reviewed & are unremarkable except as noted in HPI and below Denies chills, Denies fever, Denies weight gain and Denies weight loss Eyes Denies change in vision and Denies diplopia ENT Denies disequilibrium Card Denies chest pain and Denies dyspnea Resp Denies cough and Denies dyspnea GI Denies abdominal pain, Denies change in bowel habits, Denies fecal incontinence and Denies vomiting Denies hematuria, Denies oliguria, Denies difficulty urinating, Denies dysuria, Denies urinary frequency, Denies urinary hesitancy, Denies urinary incontinence and Denies urinary urgency Musc Reports as per HPI Skin/ Breast Reports system reviewed and no additional complaints, except as documented Neuro Reports as per HPI Psych Reports no additional complaints, Denies depression and Denies hopelessness Endo Reports no additional complaints and Denies polyuria Daren/ Lymph Reports no additional complaints Aller/ Immun Reports no additional complaints PMFSH Past Medical History Medical History Rhinosinusitis Peripheral vascular disease Hx of adenomatous colonic polyps Hematuria MTHFR gene mutation Stasis dermatitis Personal history of pulmonary embolism Pure hypercholesterolemia, unspecified Essential (primary) hypertension Surgical History Surgical History Status post endovenous radiofrequency ablation (RFA) of saphenous vein Hx of cholecystectomy Hx of colonoscopy Family History Family History Mother Family history of malignant neoplasm multiple myeloma Father Family history of diabetes mellitus in first degree relative Family history of type 2 diabetes mellitus Skin cancer Social History Social History Social History: Smoking status: Never smoker Second hand tobacco smoke exposure: No Alcohol intake: never Substance use: never Substance use type: does not use Lack of Transportation: No Lack of Food: Never True Current Housing: I Have Housing Concerned About Future Housing: No Difficulty Paying Gas/Electric Bills: No Difficulty Paying for Meds: No Currently Unemployed: No Education: Decline to Answer Difficulty w/ Childcare or Family Care: No Living arrangements: with family Additional living arrangements comments: with sp Occupation/Education: occupation Gender identity (if verbalized by the patient): Male Sexual Orientation (if Verbalized by the Patient): Straight or Heterosexual Spiritual care concerns: No Meds Home Medications and Allergies Home Medications ?Medication ?Instructions ?Recorded ?Confirmed ?Type atorvastatin 10 mg tablet See Rx Instructions .Route 03/15/24 03/13/25 Rx .COMPLEX #90 tabs apixaban 5 mg tablet (Eliquis) 5 mg PO BID #180 tabs 10/30/24 03/13/25 Rx furosemide 20 mg tablet (Lasix) 20 mg PO QAM #90 tabs 01/04/25 03/13/25 Rx pantoprazole 40 mg tablet,delayed 40 mg PO QAM laryngopharyngeal 02/08/25 03/13/25 Rx release reflux #30 tabs glipizide 5 mg tablet, extended 5 mg PO DAILY #90 tabs 02/21/25 03/13/25 Rx release 24 hr lisinopril 20 mg tablet See Rx Instructions .Route 02/22/25 03/13/25 Rx .COMPLEX #90 tabs metformin 500 mg tablet,extended 1,000 mg PO BID 03/13/25 03/13/25 History release 24 hr Allergies Allergy/AdvReac Type Severity Reaction Status Date / Time No Known Allergies Allergy Verified 02/12/25 13:07 Vital Signs Vital Signs - 24 hr 03/20/25 12:05 03/20/25 14:00 03/20/25 16:01 Temperature 98.1 F Pulse Rate 72 76 75 Respiratory Rate 18 Blood Pressure 129/66 Pulse Oximetry 96 Oxygen Delivery 03/20/25 20:00 03/20/25 20:06 03/20/25 20:28 Temperature 98.3 F Pulse Rate 83 64 85 Respiratory Rate 18 Blood Pressure 132/72 Pulse Oximetry 98 Oxygen Delivery 03/20/25 22:13 03/21/25 00:00 03/21/25 04:00 Temperature Pulse Rate 74 68 Respiratory Rate Blood Pressure Pulse Oximetry 98 Oxygen Delivery Room Air 03/21/25 06:00 03/21/25 08:23 Temperature 97.8 F Pulse Rate 73 74 Respiratory Rate 18 Blood Pressure 129/76 Pulse Oximetry 96 Oxygen Delivery Exam Narrative: General: cooperative, no acute distress, well developed, alert and awake Orientation/Consciousness: oriented to person, oriented to place and oriented to time Constitutional Limitations: no limitations Other: The patient is a normally developed, normal appearing male laying in his hospital bed in no acute distress. He is awake, alert, and oriented x3 with good fund of knowledge, recall of events, and fluent speech. HENMT Head: normocephalic and atraumatic Ears: external ears normal Face/Nose/Sinus: Normal external nose present Eyes Eyelids: eyelids normal Pupils: Yes Pupils normal by confrontation EOM: EOMs intact bilaterally Neck General: Yes no meningeal signs, Yes supple and Yes no JVD Resp Effort/Inspection: normal respiratory effort and able to speak in complete sentences Cardio Rate: Yes regular rate GI Inspection: No abdominal distension Musc Other: Examination of the back reveals no tenderness. Range of motion of the back was not tested. Straight leg raise is negative bilaterally. Jan?s test is negative bilaterally. Skin General: normal color Neuro General: Yes oriented to person, Yes oriented to place, Yes oriented to time, Yes normal cognition and Yes no meningeal signs Cranial Nerves: Yes CN's II-XII intact bilaterally Other: Motor: Strength is normal, 5/5, throughout all muscle groups of the bilateral lower extremities to direct confrontation. Sensory: Sensation is intact to light touch throughout the lower extremities bilaterally. Reflexes: Deep tendon reflexes are difficult to elicit the knees or ankles bilaterally. There is no clonus.. Gait: Gait, station, and transfers were not tested. Psych Appearance: grossly normal Mental status: Yes mental status grossly normal Mood: congruent mood Affect: Yes normal affect Speech/Movement: Normal speech and movement present Attitude: Yes cooperative Thought Content: Normal thought content present Review of studies: CT scan and MRI of the lumbar spine were personally reviewed by me. These demonstrated destructive process at L1-2 consistent with diskitis osteomyelitis with erosion of the endplates at L1 and L2 and slight retrolisthesis. There is some enhancing material that enters the canal posterior to the disc at L1-2 and there is at least moderately severe stenosis there. The stenosis appears to be below the conus. Results Labs 03/21/25 07:13 03/21/25 07:14 Labs: Short CBC 03/21/25 Range/Units 07:13 WBC 8.7 (4.5-10.0) K/mm3 Hgb 9.1 L (14.0-18.0) g/dL Hct 30.4 L (42.0-52.0) % Plt Count 570 H (150-375) k/mm3 BMP 03/21/25 07:14 Sodium 135 L Potassium 4.0 Chloride 102 Carbon Dioxide 27 BUN 8 L Creatinine 0.63 L Glucose 106 Calcium 8.5 Liver Function 03/21/25 Range/Units 07:14 Total Bilirubin 0.3 (0.2-1.3) mg/dL AST 42 (17-59) U/L ALT 19 (6-50) U/L Alkaline Phosphatase 119 (38-126) U/L Albumin 2.9 L (3.5-5.1) g/dL
--- NOTE | 2025-03-21 09:50 | WPDNEUROSGCN ---
Assessment and Plan Assessment and plan (1) Cellulitis: Qualifiers: Laterality: left Site of cellulitis: extremity Site of cellulitis of extremity: lower extremity Qualified Code(s): L03.116 - Cellulitis of left lower limb Code(s): L03.90 - Cellulitis, unspecified Status: Acute (2) Sepsis: Qualifiers: Sepsis acute organ dysfunction status: without acute organ dysfunction Sepsis type: sepsis due to unspecified organism Qualified Code(s): A41.9 - Sepsis, unspecified organism Code(s): A41.9 - Sepsis, unspecified organism Status: Acute (3) Bacteremia: Code(s): R78.81 - Bacteremia Status: Acute (4) Septic discitis of lumbar region: Code(s): M46.46 - Discitis, unspecified, lumbar region Status: Acute (5) Osteomyelitis of lumbar vertebra: Code(s): M46.26 - Osteomyelitis of vertebra, lumbar region Status: Acute (6) Paraspinal abscess: Code(s): M46.20 - Osteomyelitis of vertebra, site unspecified Status: Acute Plan Bernabe is a 69-year-old gentleman with an L1-2 diskitis/osteomyelitis. There is some phlegmon in the epidural space but I see no abscess there. Surgery has questionable value as he has no clear neurologic deficit and the problem is below the spinal cord. I will discuss this with his other treating physicians. I doubt it would have any impact on the infection or its natural history. Appropriate treatment is tailor antibiotics. There will be significant pain for some time which will need to be treated. Physical and occupational therapy should be involved in his care. He may enjoy a out of bed activity as tolerated and we may learn from that process what issues he has and be able to tailor his treatment as necessary. Consult date: 03/21/25 HPI: Bernabe Marx Jr. is a 69 year old male with a past medical history of past history of diabetes, hypertension, HLD, PVD, PEs, venous stasis bilateral lower extremities and chronic wounds bilaterally who presents and a fall at the facility where he lives. He experienced generalized weakness and pain in his back. He was noted here to have bacteremia and MSSA was cultured from his blood. A seeping wound on his leg grew Proteus mirabilis. He is on tailored antibiotics. Because of his continued complaints of back pain a CT scan and an MRI of his lumbar spine was performed. This demonstrated destructive lesion in the disc space at L1-2 most consistent with diskitis/osteomyelitis. MRI confirmed this with some epidural phlegmon causing moderate stenosis at the affected level, L1-2. He does not note any specific muscle group weakness of either lower extremity. He has generalized weakness and pain if he still tries to stand walk. The weakness is likely related to the discomfort. He has not been ambulatory much here except to have bowel movements. He has urine collection device in place. He does not note new bowel or bladder issues. He is chronically ill-appearing. Review of Systems Review of Systems: Const All systems reviewed & are unremarkable except as noted in HPI and below Denies chills, Denies fever, Denies weight gain and Denies weight loss Eyes Denies change in vision and Denies diplopia ENT Denies disequilibrium Card Denies chest pain and Denies dyspnea Resp Denies cough and Denies dyspnea GI Denies abdominal pain, Denies change in bowel habits, Denies fecal incontinence and Denies vomiting Denies hematuria, Denies oliguria, Denies difficulty urinating, Denies dysuria, Denies urinary frequency, Denies urinary hesitancy, Denies urinary incontinence and Denies urinary urgency Musc Reports as per HPI Skin/ Breast Reports system reviewed and no additional complaints, except as documented Neuro Reports as per HPI Psych Reports no additional complaints, Denies depression and Denies hopelessness Endo Reports no additional complaints and Denies polyuria Daren/ Lymph Reports no additional complaints Aller/ Immun Reports no additional complaints PMFSH Past Medical History Medical History Rhinosinusitis Peripheral vascular disease Hx of adenomatous colonic polyps Hematuria MTHFR gene mutation Stasis dermatitis Personal history of pulmonary embolism Pure hypercholesterolemia, unspecified Essential (primary) hypertension Surgical History Surgical History Status post endovenous radiofrequency ablation (RFA) of saphenous vein Hx of cholecystectomy Hx of colonoscopy Family History Family History Mother Family history of malignant neoplasm multiple myeloma Father Family history of diabetes mellitus in first degree relative Family history of type 2 diabetes mellitus Skin cancer Social History Social History Social History: Smoking status: Never smoker Second hand tobacco smoke exposure: No Alcohol intake: never Substance use: never Substance use type: does not use Lack of Transportation: No Lack of Food: Never True Current Housing: I Have Housing Concerned About Future Housing: No Difficulty Paying Gas/Electric Bills: No Difficulty Paying for Meds: No Currently Unemployed: No Education: Decline to Answer Difficulty w/ Childcare or Family Care: No Living arrangements: with family Additional living arrangements comments: with sp Occupation/Education: occupation Gender identity (if verbalized by the patient): Male Sexual Orientation (if Verbalized by the Patient): Straight or Heterosexual Spiritual care concerns: No Meds Home Medications and Allergies Home Medications ?Medication ?Instructions ?Recorded ?Confirmed ?Type atorvastatin 10 mg tablet See Rx Instructions .Route 03/15/24 03/13/25 Rx .COMPLEX #90 tabs apixaban 5 mg tablet (Eliquis) 5 mg PO BID #180 tabs 10/30/24 03/13/25 Rx furosemide 20 mg tablet (Lasix) 20 mg PO QAM #90 tabs 01/04/25 03/13/25 Rx pantoprazole 40 mg tablet,delayed 40 mg PO QAM laryngopharyngeal 02/08/25 03/13/25 Rx release reflux #30 tabs glipizide 5 mg tablet, extended 5 mg PO DAILY #90 tabs 02/21/25 03/13/25 Rx release 24 hr lisinopril 20 mg tablet See Rx Instructions .Route 02/22/25 03/13/25 Rx .COMPLEX #90 tabs metformin 500 mg tablet,extended 1,000 mg PO BID 03/13/25 03/13/25 History release 24 hr Allergies Allergy/AdvReac Type Severity Reaction Status Date / Time No Known Allergies Allergy Verified 02/12/25 13:07 Vital Signs Vital Signs - 24 hr 03/20/25 12:05 03/20/25 14:00 03/20/25 16:01 Temperature 98.1 F Pulse Rate 72 76 75 Respiratory Rate 18 Blood Pressure 129/66 Pulse Oximetry 96 Oxygen Delivery 03/20/25 20:00 03/20/25 20:06 03/20/25 20:28 Temperature 98.3 F Pulse Rate 83 64 85 Respiratory Rate 18 Blood Pressure 132/72 Pulse Oximetry 98 Oxygen Delivery 03/20/25 22:13 03/21/25 00:00 03/21/25 04:00 Temperature Pulse Rate 74 68 Respiratory Rate Blood Pressure Pulse Oximetry 98 Oxygen Delivery Room Air 03/21/25 06:00 03/21/25 08:23 Temperature 97.8 F Pulse Rate 73 74 Respiratory Rate 18 Blood Pressure 129/76 Pulse Oximetry 96 Oxygen Delivery Exam Narrative: General: cooperative, no acute distress, well developed, alert and awake Orientation/Consciousness: oriented to person, oriented to place and oriented to time Constitutional Limitations: no limitations Other: The patient is a normally developed, ill-appearing appearing male supine in his hospital bed in no acute distress. He is awake, alert, and oriented x3 with good fund of knowledge, recall of events, and fluent speech. HENMT Head: normocephalic and atraumatic Ears: external ears normal Face/Nose/Sinus: Normal external nose present Eyes Eyelids: eyelids normal Pupils: Yes Pupils normal by confrontation EOM: EOMs intact bilaterally Neck General: Yes no meningeal signs, Yes supple and Yes no JVD Resp Effort/Inspection: normal respiratory effort and able to speak in complete sentences Cardio Rate: Yes regular rate GI Inspection: No abdominal distension Musc Other: Examination of the back reveals tenderness. Range of motion of the back was not tested. Straight leg raise is negative bilaterally. Jan?s test is negative bilaterally. Skin General: normal color Neuro General: Yes oriented to person, Yes oriented to place, Yes oriented to time, Yes normal cognition and Yes no meningeal signs Cranial Nerves: Yes CN's II-XII intact bilaterally Other: Motor: Strength is normal, 5/5, throughout all muscle groups of the bilateral lower extremities to direct confrontation. Sensory: Sensation is intact to light touch throughout the lower extremities bilaterally. Reflexes: Deep tendon reflexes were difficult to elicit the knees or ankles bilaterally. There was no clonus.. Gait: Gait, station, and transfers are independent and steady for short periods of time and over short distances. Psych Appearance: grossly normal Mental status: Yes mental status grossly normal Mood: congruent mood Affect: Yes normal affect Speech/Movement: Normal speech and movement present Attitude: Yes cooperative Thought Content: Normal thought content present Review of studies: CT and MRI of the lumbar spine were personally reviewed by me. This demonstrates destructive lesion of the L1-2 disc space with slight retrolisthesis of L1 on L2 and erosion of the endplates adjacent to the disc space. MRI confirms most likely diskitis/osteomyelitis with enhancing material, likely phlegmon in the epidural space causing at least moderate central canal stenosis which is below the conus. I see no clear fluid collections within the epidural space. Results Labs 03/21/25 07:13 03/21/25 07:14 Labs: Short CBC 03/21/25 Range/Units 07:13 WBC 8.7 (4.5-10.0) K/mm3 Hgb 9.1 L (14.0-18.0) g/dL Hct 30.4 L (42.0-52.0) % Plt Count 570 H (150-375) k/mm3 BMP 03/21/25 07:14 Sodium 135 L Potassium 4.0 Chloride 102 Carbon Dioxide 27 BUN 8 L Creatinine 0.63 L Glucose 106 Calcium 8.5 Liver Function 03/21/25 Range/Units 07:14 Total Bilirubin 0.3 (0.2-1.3) mg/dL AST 42 (17-59) U/L ALT 19 (6-50) U/L Alkaline Phosphatase 119 (38-126) U/L Albumin 2.9 L (3.5-5.1) g/dL
--- NOTE | 2025-03-21 10:19 | PCOTNOTE ---
Per RN, Patient was made NPO last night, awaiting a decision to see if Patient will have a procedure done, unavailable at this time. Will check back at a later time.
--- NOTE | 2025-03-21 12:16 | WPDINFPN2 ---
Progress Note: A&P Assessment and Plan (1) Septic discitis of lumbar region: Code(s): M46.46 - Discitis, unspecified, lumbar region Status: Acute Assessment and Plan: See below (2) Osteomyelitis of lumbar vertebra: Code(s): M46.26 - Osteomyelitis of vertebra, lumbar region Status: Acute Assessment and Plan: See below (3) Paraspinal abscess: Code(s): M46.20 - Osteomyelitis of vertebra, site unspecified Status: Acute Assessment and Plan: See below (4) Epidural abscess: Code(s): G06.2 - Extradural and subdural abscess, unspecified Status: Acute Assessment and Plan: See below Plan ASSESSMENT: 1. MSSA septicemia --03/13/25 blood cultures: MSSA 1 of 2 sets --03/15/25 blood cultures: GPCC 1 of 2 sets --Skin-soft tissue source vs. other --No high-grade septicemia or TTE findings to suggest endocarditis 2. Acute L1/2 discitis/osteomyelitis with paraspinal and possible epidural extension --Suspect this is source of MSSA septicemia 3. Accelerating lumbar back pain since October 2024 --CT LS spine with L1/2 discitis/osteomyelitis with paraspinal and possible epidural extension 4. Proteus mirabilis LLE wound infection with cellulitis 5. Chronic venous insufficiency with stasis dermatitis LLE>RLE 6. Mild leukocytosis 7. Non-sustained ventricular tachycardia (management as per Cardiology) 78. Tinnitus s/p cochlear implant/device surgery (more than 40 years ago) PLAN: -Await ID of 03/15/25 blood isolate; if S. aureus noted again, recommend ANTIONE to further exclude endocarditis -Repeat blood cultures x 2 -Continue Cefazolin for treatment of MSSA septicemia and L1/2 discitis with osteomyelitis and paraspinal microabscesses -Appreciate Neurosurgery consultation -Continue Bactrim PO for coverage of Proteus from wound culture -Follow CBC and renal function -Continue local wound care Discussed with patient. All questions answered Subjective Date/time seen: 03/21/25 12:16 Interval history: Patient afebrile. No change in back pain. MR LS spine shows L1/2 discitis with paraspinal microabscesses. Neurosurgery consultation noted and as no evidence of sally epidural abscess, no plans for surgical intervention. 03/15/25 blood cultures now growing GPC in 1 of 2 sets Review of Systems Review of Systems: All systems reviewed & are unremarkable except as noted in HPI and below Exam Narrative: Gen: NAD Cor: no tachycardia noted Pulm: normal chest wall expansion, no tachypnea Abd: non-distended Back: point lower lumbar spinal TTP; left>right mild lumbar paraspinal TTP LLE: Fading erythema superimposed upon chronic venous insufficiency changes with dermatitis Objective Data Vital Signs Vital Signs: Vital Signs - 24 hr 03/20/25 14:00 03/20/25 16:01 03/20/25 20:00 Temperature 98.1 F Pulse Rate 76 75 83 Respiratory Rate 18 Blood Pressure 129/66 Pulse Oximetry 96 Oxygen Delivery 03/20/25 20:06 03/20/25 20:28 03/20/25 22:13 Temperature 98.3 F Pulse Rate 64 85 Respiratory Rate 18 Blood Pressure 132/72 Pulse Oximetry 98 98 Oxygen Delivery Room Air 03/21/25 00:00 03/21/25 04:00 03/21/25 06:00 Temperature 97.8 F Pulse Rate 74 68 73 Respiratory Rate 18 Blood Pressure 129/76 Pulse Oximetry 96 Oxygen Delivery 03/21/25 08:02 03/21/25 08:23 03/21/25 08:28 Temperature Pulse Rate 76 74 Respiratory Rate 18 Blood Pressure Pulse Oximetry 96 Oxygen Delivery Room Air Intake/Output Intake/Output: Intake & Output 03/18/25 03/19/25 03/20/25 03/21/25 23:59 23:59 23:59 23:59 Intake Total 1709 1688 590 200 Output Total 2850 3050 1400 1300 [id number] [phone] Meds/Results Medications: Active Medications Generic Name Dose Route Start Last Admin Trade Name Freq PRN Reason Stop Dose Admin Acetaminophen 1,000 mg 03/14/25 13:30 03/21/25 11:48 Acetaminophen 500 Mg Tablet PO 1,000 mg Q6HR EJ Administration Apixaban 5 mg 03/13/25 21:00 03/21/25 08:28 Apixaban 5 Mg Tablet PO 5 mg Q12HR EJ Administration Aspirin 81 mg 03/20/25 09:00 03/21/25 08:22 Aspirin 81 Mg Enteric Tablet PO 81 mg QAM EJ Administration Atorvastatin Calcium 10 mg 03/13/25 09:00 03/21/25 08:22 Atorvastatin 10 Mg Tablet PO 10 mg DAILY EJ Administration Carvedilol 6.25 mg 03/19/25 21:00 03/21/25 08:23 Carvedilol 6.25 Mg Tablet PO 6.25 mg Q12HR EJ Administration Cyclobenzaprine HCl 10 mg 03/19/25 16:55 03/20/25 20:11 Cyclobenzaprine Hcl 10 Mg Tablet PO 10 mg Q8H PRN Administration Muscle Spasm Dextrose 12.5 gm 03/13/25 08:49 Dextrose 50% 25 Gm/50 Ml Syringe IV PUSH PRN PRN Hypoglycemia Protocol Furosemide 20 mg 03/13/25 09:00 03/21/25 08:22 Furosemide 20 Mg Tablet PO 20 mg QAM EJ Administration Glucagon 1 mg 03/13/25 08:49 Glucagon For Inj 1 Mg Vial IM PRN PRN Hypoglycemia Protocol Glucose 15 gm 03/13/25 08:49 03/14/25 21:01 Glucose Oral Gel 15 Gm Of Glucse In 37.5 Gm Tube PO 15 gm PRN PRN Administration Hypoglycemia Protocol Dextrose 1,000 mls @ 100 mls/hr 03/13/25 08:49 Dextrose 5% 1,000 Ml IVPB PRN PRN Hypoglycemia Protocol Cefazolin Sodium 1 gm/ Sodium 50 mls @ 100 mls/hr 03/17/25 14:00 03/21/25 05:19 Chloride IVPB 100 mls/hr Q8HR EJ Administration Insulin Aspart 2 - 5 units 03/13/25 12:00 03/21/25 11:05 Insulin Aspart (*Bkc) 100 Units/Ml SUB-Q Not Given TIDWM [facility] Protocol Lidocaine 2 patch 03/14/25 09:00 03/21/25 08:28 Lidocaine 5% Patch TRANSDERM 2 patch DAILY EJ Administration Lisinopril 20 mg 03/13/25 21:00 03/20/25 20:06 Lisinopril 20 Mg Tablet PO 20 mg HS EJ Administration Ondansetron HCl 4 mg 03/13/25 08:49 Ondansetron Inj 4 Mg/2 Ml Vial IV PUSH Q6H PRN Nausea And Vomiting Oxycodone HCl 5 mg 03/14/25 13:14 03/20/25 18:44 Oxycodone Hcl (*Crx) 5 Mg Tab Ir PO 5 mg Q4H PRN Administration Pain Rated 7-10 Pantoprazole Sodium 40 mg 03/13/25 08:00 03/21/25 08:23 Pantoprazole 40 Mg Tablet PO 40 mg DAILY@0800 EJ Administration Potassium Chloride 40 meq 03/17/25 09:25 03/21/25 08:22 Potassium Chloride 20 Meq Packet (For Liquid) PO 40 meq BID EJ Administration Trimethoprim/Sulfamethoxazole 1 tab 03/17/25 21:00 03/21/25 08:22 Sulfamethoxazole/Trimethoprim 800/160 Mg Ds Tablet PO 1 tab Q12HR EJ Administration Radiology Results: ITS Impressions Elbow X-Ray 03/13/25 07:04 Impression: 1: No acute bone or joint abnormality. Chest X-Ray 03/13/25 07:05 IMPRESSION: 1: NO ACUTE CARDIOPULMONARY DISEASE. Tibia/Fibula X-Ray 03/13/25 07:06 Impression: 1: Mild-moderate polyarticular osteoarthritis. Lumbar Spine X-Ray 03/14/25 18:51 IMPRESSION: Normal lumbar spine. Ankle Brachial Index 03/19/25 14:34 IMPRESSION: 1. No significant arterial occlusive disease to either lower limb with normal bilateral TBIs. Lumbar Spine CT 03/20/25 08:45 IMPRESSION: Aggressive process at the L1-2 interspace likely involving discitis, osteomyelitis of both vertebral bodies, and paraspinal phlegmon/developing abscess with possible epidural involvement as well. Correlation with contrast-enhanced lumbar spine MRI suggested. Skull X-Ray 03/20/25 14:40 Impression: No acute fracture or malalignment. Lumbar Spine MRI 03/20/25 18:05 IMPRESSION: 1. Evidence of acute discitis at L1-2 level with osteomyelitis involving L1 and L2 vertebral bodies.Para Vertebral inflammatory changes with microabscesses on both sides. 2. Significant narrowing of the thecal sac at L1-2 level as described above. 3. Findings at other disc levels are described above in detail. Labs Labs: Laboratory Results - last 24 hr 03/20/25 03/20/25 03/21/25 16:29 19:46 07:13 WBC 8.7 RBC 4.01 L Hgb 9.1 L Hct 30.4 L MCV 75.8 L MCH 22.7 L MCHC 29.9 L RDW 20.2 H Plt Count 570 H MPV 8.7 Immature Gran % (Auto) 0.9 H Neut % (Auto) 67.0 Lymph % (Auto) 18.3 [place] % (Auto) 8.4 Eos % (Auto) 4.7 H Baso % (Auto) 0.7 Lymph # (Auto) 1.59 [place] # (Auto) 0.7 H Eos # (Auto) 0.4 H Baso # (Auto) 0.1 Abs Immat Gran (auto) 0.08 H Absolute Neuts (auto) 5.8 Absolute Nucleated RBC 0.000 Band Neutrophils % Not Reportable Nucleated RBC % 0.0 Platelet Estimate Increased Hypochromasia 2+ Anisocytosis 2+ Target Cells Occasional Schistocytes Occasional Sodium Potassium Chloride Carbon Dioxide Anion Gap BUN Creatinine Estim Creat Clear Calc Estimated GFR Glucose POC Capillary Glucose 129 H 170 H Calcium Magnesium Total Bilirubin AST ALT Alkaline Phosphatase Total Protein Albumin 03/21/25 03/21/25 03/21/25 07:14 07:24 11:03 WBC RBC Hgb Hct MCV MCH MCHC RDW Plt Count MPV Immature Gran % (Auto) Neut % (Auto) Lymph % (Auto) Terry % (Auto) Eos % (Auto) Baso % (Auto) Lymph # (Auto) Terry # (Auto) Eos # (Auto) Baso # (Auto) Abs Immat Gran (auto) Absolute Neuts (auto) Absolute Nucleated RBC Band Neutrophils % Nucleated RBC % Platelet Estimate Hypochromasia Anisocytosis Target Cells Schistocytes Sodium 135 L Potassium 4.0 Chloride 102 Carbon Dioxide 27 Anion Gap 6 BUN 8 L Creatinine 0.63 L Estim Creat Clear Calc 132 Estimated GFR > 60 Glucose 106 POC Capillary Glucose 116 H 112 H Calcium 8.5 Magnesium 2.6 H Total Bilirubin 0.3 AST 42 ALT 19 Alkaline Phosphatase 119 Total Protein 7.1 Albumin 2.9 L
--- NOTE | 2025-03-21 12:35 | PM.IMPN ---
Progress Note: A&P Assessment and Plan (1) Essential (primary) hypertension: Code(s): I10 - Essential (primary) hypertension Status: Acute (2) Stasis dermatitis: Code(s): I87.2 - Venous insufficiency (chronic) (peripheral) Status: Acute (3) Type 2 diabetes mellitus without complications: Code(s): E11.9 - Type 2 diabetes mellitus without complications Status: Acute (4) Bacteremia: Code(s): R78.81 - Bacteremia Status: Acute (5) Septic discitis of lumbar region: Code(s): M46.46 - Discitis, unspecified, lumbar region Status: Acute (6) Paraspinal abscess: Code(s): M46.20 - Osteomyelitis of vertebra, site unspecified Status: Acute (7) Generalized weakness: Code(s): R53.1 - Weakness Status: Acute Plan 69-year-old male with past history of diabetes, hypertension, HLD, PVD, PEs, venous stasis bilateral lower extremities and chronic wounds bilateral who presented to the emergency department with complaints of fall at home and worsening weakness. 1. Septicemia: MSSA septicemia --Skin-soft tissue source vs. other No findings on ANTIONE suggestive of endocarditis Acute L1-L2 diskitis/osteomyelitis with paraspinal/possible epidural extension Proteus mirabilis left lower extremity wound infection with cellulitis ID following Follow blood cultures from 03/15/2025 to document clearance of septicemia Continue with cefazolin for MSSA Continue with Bactrim for Proteus from wound 2. L1-L2 diskitis/osteomyelitis: Appreciate neurosurgery help ? Some phlegmon and epidural space but no abscess as per neurosurgery Pain control Antibiotic as per ID PT/OT as tolerated 3. Nonsustained ventricular tachycardia: Appreciate cardiology help Abnormal stress test, small area of mild intensity in [place] Continue with aspirin, Coreg, Lipitor Further ischemic eval depending on symptoms and monitor results as outpatient once bacteremia clears(can be done as an outpatient) -small area of mild intensity ischemia -started aspirin 81 mg p.o. daily and coreg 6.25mg PO BID -continue atorvastatin 10 mg p.o. qhs for goal LDL less than 70 -will discuss further ischemic eval depending on symptoms and monitor results in clinic once bacteremia clears (can be done on OP basis) Plan to discharge on event monitor for 30 days Outpatient follow-up with Cardiology in 2-4 weeks upon discharge 4. Hypertension: Continue with lisinopril 5. Diabetes mellitus: Blood glucose checked t.i.d. a.c. and HS Continue with sliding scale insulin 6. Code status: Full 7. DVT prophylaxis: Eliquis 8. Disposition: Pending improvement Time Spent With Patient Time: 39 mins Subjective Date/time seen: 03/21/25 12:35 Interval history: Complains of back pain Review of Systems Review of Systems: All systems reviewed & are unremarkable except as noted in HPI and below Exam Const: General: comfortable HENMT: Mouth: Yes moist mucous membranes Eyes: Sclera: sclerae normal Neck: Neck: supple Resp: Auscultation: clear to auscultation bilaterally Cardio: Rhythm: regular rhythm GI: Auscultation: normal bowel sounds Skin: General skin exam: dry skin, erythema (LLE ) and excoriation Other: Patient with significant excoriation to his abdominal area, dermatitis stasis, minimal drainage Neuro: Cranial nerves: Yes Equal, round and reactive pupils present Speech: normal speech Extrem: General: edema (RLE >LLE 2+) bilateral Other: BLE with erythema and edema (edema R>L), erythema outlined in marker. LLE with breakdown and healing wound with scan to mid swenson lateral aspect Psych: Mental Status: mental status grossly normal Affect: normal affect Objective Data Vital Signs Vital Signs: Vital Signs - 24 hr 03/20/25 14:00 03/20/25 16:01 03/20/25 20:00 Temperature 98.1 F Pulse Rate 76 75 83 Respiratory Rate 18 Blood Pressure 129/66 Pulse Oximetry 96 Oxygen Delivery 03/20/25 20:06 03/20/25 20:28 03/20/25 22:13 Temperature 98.3 F Pulse Rate 64 85 Respiratory Rate 18 Blood Pressure 132/72 Pulse Oximetry 98 98 Oxygen Delivery Room Air 03/21/25 00:00 03/21/25 04:00 03/21/25 06:00 Temperature 97.8 F Pulse Rate 74 68 73 Respiratory Rate 18 Blood Pressure 129/76 Pulse Oximetry 96 Oxygen Delivery 03/21/25 08:02 03/21/25 08:23 03/21/25 08:28 Temperature Pulse Rate 76 74 Respiratory Rate 18 Blood Pressure Pulse Oximetry 96 Oxygen Delivery Room Air Intake/Output Intake/Output: Intake & Output 03/18/25 03/19/25 03/20/25 03/21/25 23:59 23:59 23:59 23:59 Intake Total 1709 1688 590 200 Output Total 2850 3050 1400 1300 [facility] -[phone] Meds/Results Medications: Active Medications Generic Name Dose Route Start Last Admin Trade Name Freq PRN Reason Stop Dose Admin Acetaminophen 1,000 mg 03/14/25 13:30 03/21/25 11:48 Acetaminophen 500 Mg Tablet PO 1,000 mg Q6HR EJ Administration Apixaban 5 mg 03/13/25 21:00 03/21/25 08:28 Apixaban 5 Mg Tablet PO 5 mg Q12HR EJ Administration Aspirin 81 mg 03/20/25 09:00 03/21/25 08:22 Aspirin 81 Mg Enteric Tablet PO 81 mg QAM EJ Administration Atorvastatin Calcium 10 mg 03/13/25 09:00 03/21/25 08:22 Atorvastatin 10 Mg Tablet PO 10 mg DAILY EJ Administration Carvedilol 6.25 mg 03/19/25 21:00 03/21/25 08:23 Carvedilol 6.25 Mg Tablet PO 6.25 mg Q12HR EJ Administration Cyclobenzaprine HCl 10 mg 03/19/25 16:55 03/20/25 20:11 Cyclobenzaprine Hcl 10 Mg Tablet PO 10 mg Q8H PRN Administration Muscle Spasm Dextrose 12.5 gm 03/13/25 08:49 Dextrose 50% 25 Gm/50 Ml Syringe IV PUSH PRN PRN Hypoglycemia Protocol Furosemide 20 mg 03/13/25 09:00 03/21/25 08:22 Furosemide 20 Mg Tablet PO 20 mg QAM EJ Administration Glucagon 1 mg 03/13/25 08:49 Glucagon For Inj 1 Mg Vial IM PRN PRN Hypoglycemia Protocol Glucose 15 gm 03/13/25 08:49 03/14/25 21:01 Glucose Oral Gel 15 Gm Of Glucse In 37.5 Gm Tube PO 15 gm PRN PRN Administration Hypoglycemia Protocol Dextrose 1,000 mls @ 100 mls/hr 03/13/25 08:49 Dextrose 5% 1,000 Ml IVPB PRN PRN Hypoglycemia Protocol Cefazolin Sodium 1 gm/ Sodium 50 mls @ 100 mls/hr 03/17/25 14:00 03/21/25 05:19 Chloride IVPB 100 mls/hr Q8HR EJ Administration Insulin Aspart 2 - 5 units 03/13/25 12:00 03/21/25 11:05 Insulin Aspart (*Bkc) 100 Units/Ml SUB-Q Not Given TIDWM [facility] Protocol Lidocaine 2 patch 03/14/25 09:00 03/21/25 08:28 Lidocaine 5% Patch TRANSDERM 2 patch DAILY EJ Administration Lisinopril 20 mg 03/13/25 21:00 03/20/25 20:06 Lisinopril 20 Mg Tablet PO 20 mg HS EJ Administration Morphine Sulfate 1 mg 03/21/25 12:34 Morphine Sulfate (*Crx) 4 Mg/Ml Inj IV PUSH Q6HR PRN Pain Rated 7-10 Ondansetron HCl 4 mg 03/13/25 08:49 Ondansetron Inj 4 Mg/2 Ml Vial IV PUSH Q6H PRN Nausea And Vomiting Oxycodone HCl 5 mg 03/14/25 13:14 03/20/25 18:44 Oxycodone Hcl (*Crx) 5 Mg Tab Ir PO 5 mg Q4H PRN Administration Pain Rated 7-10 Pantoprazole Sodium 40 mg 03/13/25 08:00 03/21/25 08:23 Pantoprazole 40 Mg Tablet PO 40 mg DAILY@0800 [facility] Administration Potassium Chloride 40 meq 03/17/25 09:25 03/21/25 08:22 Potassium Chloride 20 Meq Packet (For Liquid) PO 40 meq On Hold: 03/21/25 12:34 BID EJ Administration Trimethoprim/Sulfamethoxazole 1 tab 03/17/25 21:00 03/21/25 08:22 Sulfamethoxazole/Trimethoprim 800/160 Mg Ds Tablet PO 1 tab Q12HR EJ Administration Radiology Results: ITS Impressions Elbow X-Ray 03/13/25 07:04 Impression: 1: No acute bone or joint abnormality. Chest X-Ray 03/13/25 07:05 IMPRESSION: 1: NO ACUTE CARDIOPULMONARY DISEASE. Tibia/Fibula X-Ray 03/13/25 07:06 Impression: 1: Mild-moderate polyarticular osteoarthritis. Lumbar Spine X-Ray 03/14/25 18:51 IMPRESSION: Normal lumbar spine. Ankle Brachial Index 03/19/25 14:34 IMPRESSION: 1. No significant arterial occlusive disease to either lower limb with normal bilateral TBIs. Lumbar Spine CT 03/20/25 08:45 IMPRESSION: Aggressive process at the L1-2 interspace likely involving discitis, osteomyelitis of both vertebral bodies, and paraspinal phlegmon/developing abscess with possible epidural involvement as well. Correlation with contrast-enhanced lumbar spine MRI suggested. Skull X-Ray 03/20/25 14:40 Impression: No acute fracture or malalignment. Lumbar Spine MRI 03/20/25 18:05 IMPRESSION: 1. Evidence of acute discitis at L1-2 level with osteomyelitis involving L1 and L2 vertebral bodies.Para Vertebral inflammatory changes with microabscesses on both sides. 2. Significant narrowing of the thecal sac at L1-2 level as described above. 3. Findings at other disc levels are described above in detail. Labs Labs: Laboratory Results - last 24 hr 03/20/25 03/20/25 03/21/25 16:29 19:46 07:13 WBC 8.7 RBC 4.01 L Hgb 9.1 L Hct 30.4 L MCV 75.8 L MCH 22.7 L MCHC 29.9 L RDW 20.2 H Plt Count 570 H MPV 8.7 Immature Gran % (Auto) 0.9 H Neut % (Auto) 67.0 Lymph % (Auto) 18.3 [place] % (Auto) 8.4 Eos % (Auto) 4.7 H Baso % (Auto) 0.7 Lymph # (Auto) 1.59 [place] # (Auto) 0.7 H Eos # (Auto) 0.4 H Baso # (Auto) 0.1 Abs Immat Gran (auto) 0.08 H Absolute Neuts (auto) 5.8 Absolute Nucleated RBC 0.000 Band Neutrophils % Not Reportable Nucleated RBC % 0.0 Platelet Estimate Increased Hypochromasia 2+ Anisocytosis 2+ Target Cells Occasional Schistocytes Occasional Sodium Potassium Chloride Carbon Dioxide Anion Gap BUN Creatinine Estim Creat Clear Calc Estimated GFR Glucose POC Capillary Glucose 129 H 170 H Calcium Magnesium Total Bilirubin AST ALT Alkaline Phosphatase Total Protein Albumin 03/21/25 03/21/25 03/21/25 07:14 07:24 11:03 WBC RBC Hgb Hct MCV MCH MCHC RDW Plt Count MPV Immature Gran % (Auto) Neut % (Auto) Lymph % (Auto) [place] % (Auto) Eos % (Auto) Baso % (Auto) Lymph # (Auto) [place] # (Auto) Eos # (Auto) Baso # (Auto) Abs Immat Gran (auto) Absolute Neuts (auto) Absolute Nucleated RBC Band Neutrophils % Nucleated RBC % Platelet Estimate Hypochromasia Anisocytosis Target Cells Schistocytes Sodium 135 L Potassium 4.0 Chloride 102 Carbon Dioxide 27 Anion Gap 6 BUN 8 L Creatinine 0.63 L Estim Creat Clear Calc 132 Estimated GFR > 60 Glucose 106 POC Capillary Glucose 116 H 112 H Calcium 8.5 Magnesium 2.6 H Total Bilirubin 0.3 AST 42 ALT 19 Alkaline Phosphatase 119 Total Protein 7.1 Albumin 2.9 L Quality VTE Prophylaxis VTE prophylaxis: pharmacologic ordered
[2025-03-21] MEDS: oxyCODONE HCL (*CRX) 5 MG TAB IR PO (15:28)
[2025-03-21] MEDS: CYCLOBENZAPRINE HCL 10 MG TABLET PO (20:34)
[2025-03-22] VITALS (11 sets, daily range): BP systolic 117–122; BP diastolic 61–70; PULSE 68–80; RESP 18–20; TEMP 36.1–36.9; O2SAT 94–97
[2025-03-22] MEDS: ACETAMINOPHEN 500 MG TABLET 1000 MG PO ×3 (04:56→17:40)
[2025-03-22] MEDS: ceFAZolin 1 GM in SODIUM CHLORIDE 0.9% IV 50 ML 100 ML IVPB ×3 (04:56→21:15)
[2025-03-22 07:21] LABS: Hematocrit 31.6 % (42.0-52.0); Hemoglobin 9.5 g/dL (14.0-18.0); Immature Granulocyte Percent A 0.9 % (0-0.5); Lymphocytes Absolute Auto 1.93 K/mm3 (0.9-3.2); Mean Corpuscular HGB Conc 30.1 g/dl (32-36); Mean Corpuscular Hemoglobin 22.9 pg (26-34); Mean Corpuscular Volume 76.3 fl (80-100); Nucleated Red Blood Cells Absolute Auto 0.000 K/mm3 (0.0-0.012); Nucleated Red Blood Cells Perc 0.0 % (0.0-0.2); Platelet Count Result 604 k/mm3 (150-375); Red Blood Count 4.14 M/mm3 (4.6-6.20); White Blood Count 10.2 K/mm3 (4.5-10.0)
[2025-03-22 07:37] LABS: Anion Gap 8 mmol/L (4-12); Blood Urea Nitrogen 9 mg/dL (9-20); Calcium 8.3 mg/dL (8.4-10.2); Carbon Dioxide 26 mmol/L (22-30); Chloride 102 mmol/L (98-107); Estimated CRCL calculation 125 ml/min; Estimated Glomerular Filt Rate > 60; Glucose 106 mg/dL (65-110); Potassium 4.3 mmol/L (3.4-5.0); Sodium 136 mmol/L (137-145)
[2025-03-22] MEDS: PANTOPRAZOLE 40 MG TABLET PO (08:09)
[2025-03-22] MEDS: SULFAMETHOXAZOLE/TRIMETHOPRIM 800/160 MG DS TABLET 1 TAB PO (08:09)
[2025-03-22] MEDS: ATORVASTATIN 10 MG TABLET PO (08:09)
[2025-03-22] MEDS: FUROSEMIDE 20 MG TABLET PO (08:09)
[2025-03-22] MEDS: APIXABAN 5 MG TABLET PO ×2 (08:10→21:16)
[2025-03-22] MEDS: ASPIRIN 81 MG ENTERIC TABLET PO (08:10)
[2025-03-22] MEDS: LIDOCAINE 5% PATCH 2 PATCH TRANSDERM (08:17)
--- NOTE | 2025-03-22 08:58 | WPDINFPN2 ---
Progress Note: A&P Assessment and Plan (1) Septic discitis of lumbar region: Code(s): M46.46 - Discitis, unspecified, lumbar region Status: Acute Assessment and Plan: See below (2) Osteomyelitis of lumbar vertebra: Code(s): M46.26 - Osteomyelitis of vertebra, lumbar region Status: Acute Assessment and Plan: See below (3) Paraspinal abscess: Code(s): M46.20 - Osteomyelitis of vertebra, site unspecified Status: Acute Assessment and Plan: See below (4) Epidural abscess: Code(s): G06.2 - Extradural and subdural abscess, unspecified Status: Acute Assessment and Plan: See below Plan ASSESSMENT: 1. MSSA septicemia --03/13/25 blood cultures: MSSA 1 of 2 sets --03/15/25 blood cultures: Staph aureus 1 of 2 sets --03/21/25 blood cultures: pending x 2 --Lumbar spinal infection vs. endocarditis vs. other --No TTE findings to suggest endocarditis (03/17/25) 2. Acute L1/2 discitis/osteomyelitis with paraspinal and possible epidural extension --Suspect this is source of MSSA septicemia 3. Accelerating lumbar back pain since October 2024 --CT LS spine with L1/2 discitis/osteomyelitis with paraspinal and possible epidural extension 4. Proteus mirabilis LLE wound infection with cellulitis 5. Chronic venous insufficiency with stasis dermatitis LLE>RLE 6. Mild leukocytosis 7. Non-sustained ventricular tachycardia (management as per Cardiology) 78. Tinnitus s/p cochlear implant/device surgery (more than 40 years ago) PLAN: -Recommend ANTIONE to further exclude endocarditis as blood cultures from 03/13 and 03/15/25 growing Staph aureus (ANTIONE arrrangement as per primary service) -Await repeat blood cultures x 2 from 03/21/25 -Continue Cefazolin for treatment of MSSA septicemia and L1/2 discitis with osteomyelitis and paraspinal microabscesses -Appreciate Neurosurgery consultation -Discontinue Bactrim DS -Follow CBC and renal function -Continue local wound care Discussed with patient. All questions answered Subjective Date/time seen: 03/22/25 08:58 Interval history: Patient afebrile. 03/15/25 blood culture growing Staph aureus in 1 of 2 sets. 03/21/25 blood cultures are pending. Lumbar back pain has improved since admission. He is awaiting PT/OT session. Review of Systems Review of Systems: All systems reviewed & are unremarkable except as noted in HPI and below Exam Narrative: Gen: NAD Cor: no tachycardia noted Pulm: normal chest wall expansion, no tachypnea Abd: non-distended Back: point lower lumbar spinal TTP; left>right mild lumbar paraspinal TTP LLE: Fading erythema superimposed upon chronic venous insufficiency changes with dermatitis Objective Data Vital Signs Vital Signs: Vital Signs - 24 hr 03/21/25 12:04 03/21/25 14:00 03/21/25 16:01 Temperature 97.5 F L Pulse Rate 74 72 75 Respiratory Rate 16 Blood Pressure 110/57 L Pulse Oximetry 94 03/21/25 20:00 03/21/25 20:13 03/21/25 20:33 Temperature 97.5 F L Pulse Rate 79 74 73 Respiratory Rate 20 Blood Pressure 119/63 Pulse Oximetry 94 03/22/25 00:00 03/22/25 04:00 03/22/25 06:00 Temperature 98.4 F Pulse Rate 73 74 80 Respiratory Rate 18 Blood Pressure 121/70 Pulse Oximetry 95 03/22/25 08:09 Temperature Pulse Rate 76 Respiratory Rate Blood Pressure Pulse Oximetry Intake/Output Intake/Output: Intake & Output 03/19/25 03/20/25 03/21/25 03/22/25 23:59 23:59 23:59 23:59 Intake Total 1334 846 2664 350 Output Total 3050 1400 2650 1400 [facility] -[phone] -1050 Meds/Results Medications: Active Medications Generic Name Dose Route Start Last Admin Trade Name Paulq PRN Reason Stop Dose Admin Acetaminophen 1,000 mg 03/14/25 13:30 03/22/25 04:56 Acetaminophen 500 Mg Tablet PO 1,000 mg Q6HR EJ Administration Apixaban 5 mg 03/13/25 21:00 03/22/25 08:10 Apixaban 5 Mg Tablet PO 5 mg Q12HR EJ Administration Aspirin 81 mg 03/20/25 09:00 03/22/25 08:10 Aspirin 81 Mg Enteric Tablet PO 81 mg QAM EJ Administration Atorvastatin Calcium 10 mg 03/13/25 09:00 03/22/25 08:09 Atorvastatin 10 Mg Tablet PO 10 mg DAILY EJ Administration Carvedilol 6.25 mg 03/19/25 21:00 03/22/25 08:09 Carvedilol 6.25 Mg Tablet PO 6.25 mg Q12HR EJ Administration Cyclobenzaprine HCl 10 mg 03/19/25 16:55 03/21/25 20:34 Cyclobenzaprine Hcl 10 Mg Tablet PO 10 mg Q8H PRN Administration Muscle Spasm Dextrose 12.5 gm 03/13/25 08:49 Dextrose 50% 25 Gm/50 Ml Syringe IV PUSH PRN PRN Hypoglycemia Protocol Furosemide 20 mg 03/13/25 09:00 03/22/25 08:09 Furosemide 20 Mg Tablet PO 20 mg QAM EJ Administration Glucagon 1 mg 03/13/25 08:49 Glucagon For Inj 1 Mg Vial IM PRN PRN Hypoglycemia Protocol Glucose 15 gm 03/13/25 08:49 03/14/25 21:01 Glucose Oral Gel 15 Gm Of Glucse In 37.5 Gm Tube PO 15 gm PRN PRN Administration Hypoglycemia Protocol Dextrose 1,000 mls @ 100 mls/hr 03/13/25 08:49 Dextrose 5% 1,000 Ml IVPB PRN PRN Hypoglycemia Protocol Cefazolin Sodium 1 gm/ Sodium 50 mls @ 100 mls/hr 03/17/25 14:00 03/22/25 04:56 Chloride IVPB 100 mls/hr Q8HR EJ Administration Insulin Aspart 2 - 5 units 03/13/25 12:00 03/22/25 08:07 Insulin Aspart (*Bkc) 100 Units/Ml SUB-Q Not Given TIDWM [facility] Protocol Lidocaine 2 patch 03/14/25 09:00 03/22/25 08:17 Lidocaine 5% Patch TRANSDERM 2 patch DAILY EJ Administration Lisinopril 20 mg 03/13/25 21:00 03/21/25 20:34 Lisinopril 20 Mg Tablet PO 20 mg HS EJ Administration Morphine Sulfate 1 mg 03/21/25 12:34 Morphine Sulfate (*Crx) 4 Mg/Ml Inj IV PUSH Q6HR PRN Pain Rated 7-10 Ondansetron HCl 4 mg 03/13/25 08:49 Ondansetron Inj 4 Mg/2 Ml Vial IV PUSH Q6H PRN Nausea And Vomiting Oxycodone HCl 5 mg 03/14/25 13:14 03/21/25 15:28 Oxycodone Hcl (*Crx) 5 Mg Tab Ir PO 5 mg Q4H PRN Administration Pain Rated 7-10 Pantoprazole Sodium 40 mg 03/13/25 08:00 03/22/25 08:09 Pantoprazole 40 Mg Tablet PO 40 mg DAILY@0800 EJ Administration Potassium Chloride 40 meq 03/17/25 09:25 03/21/25 08:22 Potassium Chloride 20 Meq Packet (For Liquid) PO 40 meq On Hold: 03/21/25 12:34 BID EJ Administration Trimethoprim/Sulfamethoxazole 1 tab 03/17/25 21:00 03/22/25 08:09 Sulfamethoxazole/Trimethoprim 800/160 Mg Ds Tablet PO 1 tab Q12HR EJ Administration Radiology Results: ITS Impressions Elbow X-Ray 03/13/25 07:04 Impression: 1: No acute bone or joint abnormality. Chest X-Ray 03/13/25 07:05 IMPRESSION: 1: NO ACUTE CARDIOPULMONARY DISEASE. Tibia/Fibula X-Ray 03/13/25 07:06 Impression: 1: Mild-moderate polyarticular osteoarthritis. Lumbar Spine X-Ray 03/14/25 18:51 IMPRESSION: Normal lumbar spine. Ankle Brachial Index 03/19/25 14:34 IMPRESSION: 1. No significant arterial occlusive disease to either lower limb with normal bilateral TBIs. Lumbar Spine CT 03/20/25 08:45 IMPRESSION: Aggressive process at the L1-2 interspace likely involving discitis, osteomyelitis of both vertebral bodies, and paraspinal phlegmon/developing abscess with possible epidural involvement as well. Correlation with contrast-enhanced lumbar spine MRI suggested. Skull X-Ray 03/20/25 14:40 Impression: No acute fracture or malalignment. Lumbar Spine MRI 03/20/25 18:05 IMPRESSION: 1. Evidence of acute discitis at L1-2 level with osteomyelitis involving L1 and L2 vertebral bodies.Para Vertebral inflammatory changes with microabscesses on both sides. 2. Significant narrowing of the thecal sac at L1-2 level as described above. 3. Findings at other disc levels are described above in detail. Labs Labs: Laboratory Results - last 24 hr 03/21/25 03/21/25 03/21/25 07:13 11:03 16:13 WBC 8.7 RBC 4.01 L Hgb 9.1 L Hct 30.4 L MCV 75.8 L MCH 22.7 L MCHC 29.9 L RDW 20.2 H Plt Count 570 H MPV 8.7 Immature Gran % (Auto) 0.9 H Neut % (Auto) 67.0 Lymph % (Auto) 18.3 [place] % (Auto) 8.4 Eos % (Auto) 4.7 H Baso % (Auto) 0.7 Lymph # (Auto) 1.59 [place] # (Auto) 0.7 H Eos # (Auto) 0.4 H Baso # (Auto) 0.1 Abs Immat Gran (auto) 0.08 H Absolute Neuts (auto) 5.8 Absolute Nucleated RBC 0.000 Band Neutrophils % Not Reportable Nucleated RBC % 0.0 Platelet Estimate Increased Hypochromasia 2+ Anisocytosis 2+ Target Cells Occasional Schistocytes Occasional Sodium Potassium Chloride Carbon Dioxide Anion Gap BUN Creatinine Estim Creat Clear Calc Estimated GFR Glucose POC Capillary Glucose 112 H 140 H Calcium 03/21/25 03/22/25 03/22/25 19:52 07:01 07:32 WBC 10.2 H RBC 4.14 L Hgb 9.5 L Hct 31.6 L MCV 76.3 L MCH 22.9 L MCHC 30.1 L RDW 20.5 H Plt Count 604 H MPV 8.5 Immature Gran % (Auto) 0.9 H Neut % (Auto) 69.1 Lymph % (Auto) 18.9 [place] % (Auto) 6.9 Eos % (Auto) 3.4 Baso % (Auto) 0.8 Lymph # (Auto) 1.93 [place] # (Auto) 0.7 H Eos # (Auto) 0.4 H Baso # (Auto) 0.1 Abs Immat Gran (auto) 0.09 H Absolute Neuts (auto) 7.1 H Absolute Nucleated RBC 0.000 Band Neutrophils % Nucleated RBC % 0.0 Platelet Estimate Hypochromasia Anisocytosis Target Cells Schistocytes Sodium 136 L Potassium 4.3 Chloride 102 Carbon Dioxide 26 Anion Gap 8 BUN 9 Creatinine 0.67 L Estim Creat Clear Calc 125 Estimated GFR > 60 Glucose 106 POC Capillary Glucose 161 H 122 H Calcium 8.3 L
--- NOTE | 2025-03-22 10:55 | PCOTNOTE ---
Patient declined at this time due to increased pain, requesting therapies to come back to back when pain medication has been given. Will try back this afternoon.
--- NOTE | 2025-03-22 12:42 | PM.IMPN ---
Progress Note: A&P Assessment and Plan (1) Essential (primary) hypertension: Code(s): I10 - Essential (primary) hypertension Status: Acute (2) Stasis dermatitis: Code(s): I87.2 - Venous insufficiency (chronic) (peripheral) Status: Acute (3) Type 2 diabetes mellitus without complications: Code(s): E11.9 - Type 2 diabetes mellitus without complications Status: Acute (4) Bacteremia: Code(s): R78.81 - Bacteremia Status: Acute (5) Septic discitis of lumbar region: Code(s): M46.46 - Discitis, unspecified, lumbar region Status: Acute (6) Paraspinal abscess: Code(s): M46.20 - Osteomyelitis of vertebra, site unspecified Status: Acute (7) Generalized weakness: Code(s): R53.1 - Weakness Status: Acute Plan 69-year-old male with past history of diabetes, hypertension, HLD, PVD, PEs, venous stasis bilateral lower extremities and chronic wounds bilateral who presented to the emergency department with complaints of fall at home and worsening weakness. 1. Septicemia: MSSA septicemia --Skin-soft tissue source vs. other No findings on ANTIONE suggestive of endocarditis Acute L1-L2 diskitis/osteomyelitis with paraspinal/possible epidural extension Proteus mirabilis left lower extremity wound infection with cellulitis ID following Follow blood cultures from 03/15/2025 positive for Gram-positive cocci Continue with cefazolin for MSSA DC Bactrim per ID recommendation 2. L1-L2 diskitis/osteomyelitis: Appreciate neurosurgery help ? Some phlegmon and epidural space but no abscess as per neurosurgery Pain control Antibiotic as per ID PT/OT as tolerated 3. Nonsustained ventricular tachycardia: Appreciate cardiology help Abnormal stress test, small area of mild intensity in [place] Continue with aspirin, Coreg, Lipitor Further ischemic eval depending on symptoms and monitor results as outpatient once bacteremia clears(can be done as an outpatient) -small area of mild intensity ischemia -started aspirin 81 mg p.o. daily and coreg 6.25mg PO BID -continue atorvastatin 10 mg p.o. qhs for goal LDL less than 70 -will discuss further ischemic eval depending on symptoms and monitor results in clinic once bacteremia clears (can be done on OP basis) Plan to discharge on event monitor for 30 days Outpatient follow-up with Cardiology in 2-4 weeks upon discharge 4. Hypertension: Continue with lisinopril 5. Diabetes mellitus: Blood glucose checked t.i.d. a.c. and HS Continue with sliding scale insulin 6. Code status: Full 7. DVT prophylaxis: Eliquis 8. Disposition: Pending improvement Subjective Date/time seen: 03/22/25 12:42 Interval history: Patient was seen examined at bedside. He is doing fine. Denies any chest pain, SOB, abdominal pain, nausea vomiting. DAVID viewed. Negative for vegetation. Reviewed 03/15/25 blood culture growing Staph aureus in 1 of 2 sets. 03/21/25 blood cultures are pending. Reviewed Infectious Disease physician note. Continue with cefazolin. Review of Systems Review of Systems: All systems reviewed & are unremarkable except as noted in HPI and below Exam Const: General: comfortable and no acute distress Other: Pleasant chronically ill gentleman, obese HENMT: Mouth: Yes moist mucous membranes Eyes: General: appearance normal, both eyes and all related structures Sclera: sclerae normal Pupils: Equal, round and reactive pupils present Neck: Neck: supple and no JVD Resp: Effort & Inspection: normal respiratory effort Auscultation: clear to auscultation bilaterally Cardio: Rate: tachycardic Rhythm: regular rhythm GI: Auscultation: normal bowel sounds Skin: General skin exam: dry skin, erythema (LLE ) and excoriation Other: Patient with significant excoriation to his abdominal area, dermatitis stasis, minimal drainage Neuro: Cranial nerves: Yes Equal, round and reactive pupils present Speech: normal speech Other: Unable to evaluate gait, pain with and movement to BLE Extrem: General: edema (RLE >LLE 2+) bilateral Other: BLE with erythema and edema (edema R>L), erythema outlined in marker. LLE with breakdown and healing wound with scan to mid swenson lateral aspect Psych: Mental Status: mental status grossly normal Affect: normal affect Objective Data Vital Signs Vital Signs: Vital Signs - 24 hr 03/21/25 14:00 03/21/25 16:01 03/21/25 20:00 Temperature 97.5 F L Pulse Rate 72 75 79 Respiratory Rate 16 Blood Pressure 110/57 L Pulse Oximetry 94 Oxygen Delivery 03/21/25 20:13 03/21/25 20:33 03/22/25 00:00 Temperature 97.5 F L Pulse Rate 74 73 73 Respiratory Rate 20 Blood Pressure 119/63 Pulse Oximetry 94 Oxygen Delivery 03/22/25 04:00 03/22/25 06:00 03/22/25 08:01 Temperature 98.4 F Pulse Rate 74 80 76 Respiratory Rate 18 Blood Pressure 121/70 Pulse Oximetry 95 Oxygen Delivery 03/22/25 08:09 03/22/25 08:10 Temperature Pulse Rate 76 Respiratory Rate 18 Blood Pressure Pulse Oximetry 95 Oxygen Delivery Room Air Intake/Output Intake/Output: Intake & Output 03/19/25 03/20/25 03/21/25 03/22/25 23:59 23:59 23:59 23:59 Intake Total 9090 627 9347 947 Output Total 3050 1400 2650 1400 [id number] [phone] Meds/Results Medications: Active Medications Generic Name Dose Route Start Last Admin Trade Name Freq PRN Reason Stop Dose Admin Acetaminophen 1,000 mg 03/14/25 13:30 03/22/25 11:11 Acetaminophen 500 Mg Tablet PO 1,000 mg Q6HR EJ Administration Apixaban 5 mg 03/13/25 21:00 03/22/25 08:10 Apixaban 5 Mg Tablet PO 5 mg Q12HR EJ Administration Aspirin 81 mg 03/20/25 09:00 03/22/25 08:10 Aspirin 81 Mg Enteric Tablet PO 81 mg QAM EJ Administration Atorvastatin Calcium 10 mg 03/13/25 09:00 03/22/25 08:09 Atorvastatin 10 Mg Tablet PO 10 mg DAILY EJ Administration Carvedilol 6.25 mg 03/19/25 21:00 03/22/25 08:09 Carvedilol 6.25 Mg Tablet PO 6.25 mg Q12HR EJ Administration Cyclobenzaprine HCl 10 mg 03/19/25 16:55 03/21/25 20:34 Cyclobenzaprine Hcl 10 Mg Tablet PO 10 mg Q8H PRN Administration Muscle Spasm Dextrose 12.5 gm 03/13/25 08:49 Dextrose 50% 25 Gm/50 Ml Syringe IV PUSH PRN PRN Hypoglycemia Protocol Furosemide 20 mg 03/13/25 09:00 03/22/25 08:09 Furosemide 20 Mg Tablet PO 20 mg QAM EJ Administration Glucagon 1 mg 03/13/25 08:49 Glucagon For Inj 1 Mg Vial IM PRN PRN Hypoglycemia Protocol Glucose 15 gm 03/13/25 08:49 03/14/25 21:01 Glucose Oral Gel 15 Gm Of Glucse In 37.5 Gm Tube PO 15 gm PRN PRN Administration Hypoglycemia Protocol Dextrose 1,000 mls @ 100 mls/hr 03/13/25 08:49 Dextrose 5% 1,000 Ml IVPB PRN PRN Hypoglycemia Protocol Cefazolin Sodium 1 gm/ Sodium 50 mls @ 100 mls/hr 03/17/25 14:00 03/22/25 04:56 Chloride IVPB 100 mls/hr Q8HR EJ Administration Insulin Aspart 2 - 5 units 03/13/25 12:00 03/22/25 11:20 Insulin Aspart (*Bkc) 100 Units/Ml SUB-Q Not Given TIDWM [facility] Protocol Lidocaine 2 patch 03/14/25 09:00 03/22/25 08:17 Lidocaine 5% Patch TRANSDERM 2 patch DAILY EJ Administration Lisinopril 20 mg 03/13/25 21:00 03/21/25 20:34 Lisinopril 20 Mg Tablet PO 20 mg HS EJ Administration Morphine Sulfate 1 mg 03/21/25 12:34 Morphine Sulfate (*Crx) 4 Mg/Ml Inj IV PUSH Q6HR PRN Pain Rated 7-10 Ondansetron HCl 4 mg 03/13/25 08:49 Ondansetron Inj 4 Mg/2 Ml Vial IV PUSH Q6H PRN Nausea And Vomiting Oxycodone HCl 5 mg 03/14/25 13:14 03/21/25 15:28 Oxycodone Hcl (*Crx) 5 Mg Tab Ir PO 5 mg Q4H PRN Administration Pain Rated 7-10 Pantoprazole Sodium 40 mg 03/13/25 08:00 03/22/25 08:09 Pantoprazole 40 Mg Tablet PO 40 mg DAILY@0800 EJ Administration Potassium Chloride 40 meq 03/17/25 09:25 03/21/25 08:22 Potassium Chloride 20 Meq Packet (For Liquid) PO 40 meq On Hold: 03/21/25 12:34 BID EJ Administration Radiology Results: ITS Impressions Elbow X-Ray 03/13/25 07:04 Impression: 1: No acute bone or joint abnormality. Chest X-Ray 03/13/25 07:05 IMPRESSION: 1: NO ACUTE CARDIOPULMONARY DISEASE. Tibia/Fibula X-Ray 03/13/25 07:06 Impression: 1: Mild-moderate polyarticular osteoarthritis. Lumbar Spine X-Ray 03/14/25 18:51 IMPRESSION: Normal lumbar spine. Ankle Brachial Index 03/19/25 14:34 IMPRESSION: 1. No significant arterial occlusive disease to either lower limb with normal bilateral TBIs. Lumbar Spine CT 03/20/25 08:45 IMPRESSION: Aggressive process at the L1-2 interspace likely involving discitis, osteomyelitis of both vertebral bodies, and paraspinal phlegmon/developing abscess with possible epidural involvement as well. Correlation with contrast-enhanced lumbar spine MRI suggested. Skull X-Ray 03/20/25 14:40 Impression: No acute fracture or malalignment. Lumbar Spine MRI 03/20/25 18:05 IMPRESSION: 1. Evidence of acute discitis at L1-2 level with osteomyelitis involving L1 and L2 vertebral bodies.Para Vertebral inflammatory changes with microabscesses on both sides. 2. Significant narrowing of the thecal sac at L1-2 level as described above. 3. Findings at other disc levels are described above in detail. Labs Labs: Laboratory Results - last 24 hr 03/21/25 03/21/25 03/22/25 16:13 19:52 07:01 WBC 10.2 H RBC 4.14 L Hgb 9.5 L Hct 31.6 L MCV 76.3 L MCH 22.9 L MCHC 30.1 L RDW 20.5 H Plt Count 604 H MPV 8.5 Immature Gran % (Auto) 0.9 H Neut % (Auto) 69.1 Lymph % (Auto) 18.9 [place] % (Auto) 6.9 Eos % (Auto) 3.4 Baso % (Auto) 0.8 Lymph # (Auto) 1.93 [place] # (Auto) 0.7 H Eos # (Auto) 0.4 H Baso # (Auto) 0.1 Abs Immat Gran (auto) 0.09 H Absolute Neuts (auto) 7.1 H Absolute Nucleated RBC 0.000 Nucleated RBC % 0.0 Sodium 136 L Potassium 4.3 Chloride 102 Carbon Dioxide 26 Anion Gap 8 BUN 9 Creatinine 0.67 L Estim Creat Clear Calc 125 Estimated GFR > 60 Glucose 106 POC Capillary Glucose 140 H 161 H Calcium 8.3 L 03/22/25 03/22/25 07:32 11:18 WBC RBC Hgb Hct MCV MCH MCHC RDW Plt Count MPV Immature Gran % (Auto) Neut % (Auto) Lymph % (Auto) [place] % (Auto) Eos % (Auto) Baso % (Auto) Lymph # (Auto) [place] # (Auto) Eos # (Auto) Baso # (Auto) Abs Immat Gran (auto) Absolute Neuts (auto) Absolute Nucleated RBC Nucleated RBC % Sodium Potassium Chloride Carbon Dioxide Anion Gap BUN Creatinine Estim Creat Clear Calc Estimated GFR Glucose POC Capillary Glucose 122 H 174 H Calcium Quality VTE Prophylaxis VTE prophylaxis: pharmacologic ordered
[2025-03-22] MEDS: oxyCODONE HCL (*CRX) 5 MG TAB IR PO (15:25)
[2025-03-22] MEDS: CYCLOBENZAPRINE HCL 10 MG TABLET PO (21:17)
[2025-03-23] MEDS: ACETAMINOPHEN 500 MG TABLET 1000 MG PO ×4 (00:58→17:47)
[2025-03-23] MEDS: ceFAZolin 1 GM in SODIUM CHLORIDE 0.9% IV 50 ML 100 ML IVPB ×3 (04:47→21:56)
[2025-03-23 05:29] VITALS: BP 122/63; PULSE 70; RESP 18; TEMP 36.5; O2SAT 93
[2025-03-23 06:12] LABS: Hematocrit 32.3 % (42.0-52.0); Hemoglobin 9.8 g/dL (14.0-18.0); Immature Granulocyte Percent A 1.1 % (0-0.5); Lymphocytes Absolute Auto 2.21 K/mm3 (0.9-3.2); Mean Corpuscular HGB Conc 30.3 g/dl (32-36); Mean Corpuscular Hemoglobin 23.3 pg (26-34); Mean Corpuscular Volume 76.7 fl (80-100); Nucleated Red Blood Cells Absolute Auto 0.000 K/mm3 (0.0-0.012); Nucleated Red Blood Cells Perc 0.0 % (0.0-0.2); Platelet Count Result 622 k/mm3 (150-375); Red Blood Count 4.21 M/mm3 (4.6-6.20); White Blood Count 9.4 K/mm3 (4.5-10.0)
[2025-03-23 06:37] LABS: Anion Gap 4 mmol/L (4-12); Blood Urea Nitrogen 11 mg/dL (9-20); Calcium 8.7 mg/dL (8.4-10.2); Carbon Dioxide 28 mmol/L (22-30); Chloride 102 mmol/L (98-107); Estimated CRCL calculation 122 ml/min; Estimated Glomerular Filt Rate > 60; Glucose 97 mg/dL (65-110); Potassium 4.2 mmol/L (3.4-5.0); Sodium 134 mmol/L (137-145)
[2025-03-23 08:00] VITALS: PULSE 70; RESP 18; O2SAT 93
[2025-03-23] MEDS: PANTOPRAZOLE 40 MG TABLET PO (09:16)
[2025-03-23] MEDS: ATORVASTATIN 10 MG TABLET PO (09:16)
[2025-03-23] MEDS: FUROSEMIDE 20 MG TABLET PO (09:16)
[2025-03-23] MEDS: APIXABAN 5 MG TABLET PO ×2 (09:16→21:56)
[2025-03-23] MEDS: ASPIRIN 81 MG ENTERIC TABLET PO (09:16)
[2025-03-23] MEDS: LIDOCAINE 5% PATCH 2 PATCH TRANSDERM (09:17)
[2025-03-23] MEDS: oxyCODONE HCL (*CRX) 5 MG TAB IR PO ×2 (10:50→22:58)
--- NOTE | 2025-03-23 11:45 | PCOTNOTE ---
Patient declined at this time. Patient states he just recently had gotten back to the bed, the chair is very uncomfortable for him and requested therapist come back this afternoon. Patient performed PT this A.M.
--- NOTE | 2025-03-23 12:14 | P.PNINF_ITS ---
Progress Note: A&P Assessment and Plan (1) Septic discitis of lumbar region: Code(s): M46.46 - Discitis, unspecified, lumbar region Status: Acute Assessment and Plan: See below (2) Osteomyelitis of lumbar vertebra: Code(s): M46.26 - Osteomyelitis of vertebra, lumbar region Status: Acute Assessment and Plan: See below (3) Paraspinal abscess: Code(s): M46.20 - Osteomyelitis of vertebra, site unspecified Status: Acute Assessment and Plan: See below (4) Epidural abscess: Code(s): G06.2 - Extradural and subdural abscess, unspecified Status: Acute Assessment and Plan: See below Plan ASSESSMENT: 1. MSSA septicemia --03/13/25 blood cultures: MSSA x 2 sets --03/15/25 blood cultures: MSSA x 1 of 2 sets --03/21/25 blood cultures: pending x 2 --Lumbar spinal infection vs. endocarditis vs. other --No TTE findings to suggest endocarditis (03/17/25) 2. Acute L1/2 discitis/osteomyelitis with paraspinal and possible epidural extension --Suspect this is source of MSSA septicemia 3. Accelerating lumbar back pain since October 2024 --CT LS spine with L1/2 discitis/osteomyelitis with paraspinal and possible epidural extension 4. Proteus mirabilis LLE wound infection with cellulitis 5. Chronic venous insufficiency with stasis dermatitis LLE>RLE 6. Mild leukocytosis 7. Non-sustained ventricular tachycardia (management as per Cardiology) 78. Tinnitus s/p cochlear implant/device surgery (more than 40 years ago) PLAN: -Recommend ANTIONE to further exclude endocarditis as blood cultures from 03/13 and 03/15/25 growing Staph aureus (ANTIONE arrangement as per primary service) -Await repeat blood cultures x 2 from 03/21/25 -Continue Cefazolin for treatment of MSSA septicemia and L1/2 discitis with osteomyelitis and paraspinal microabscesses -Appreciate Neurosurgery consultation -Discontinued Bactrim DS -Follow CBC and renal function -Continue local wound care Discussed with patient. All questions answered Subjective Date/time seen: 03/23/25 12:14 Interval history: Patient afebrile. 03/15/25 blood culture grew MSSA. He has more soreness in low back today after PT/OT session. He was able to ambulate in hallways and do leg lift exercises. He still has pain when sitting up in the chair. Review of Systems Review of Systems: All systems reviewed & are unremarkable except as noted in HPI and below Exam Narrative: Gen: NAD Cor: no tachycardia noted Pulm: normal chest wall expansion, no tachypnea Abd: non-distended Back: point lower lumbar spinal TTP; left>right mild lumbar paraspinal TTP LLE: Fading erythema superimposed upon chronic venous insufficiency changes with dermatitis Objective Data Vital Signs Vital Signs: Vital Signs - 24 hr 03/22/25 14:00 03/22/25 16:01 03/22/25 21:17 Temperature 97 F L Pulse Rate 76 74 77 Respiratory Rate 18 Blood Pressure 117/61 Pulse Oximetry 97 03/22/25 21:50 03/23/25 05:29 Temperature 97.2 F L 97.7 F Pulse Rate 75 70 Respiratory Rate 20 18 Blood Pressure 122/65 122/63 Pulse Oximetry 94 93 Intake/Output Intake/Output: Intake & Output 03/20/25 03/21/25 03/22/25 03/23/25 23:59 23:59 23:59 23:59 Intake Total 590 1067 1934 740 Output Total 1400 2650 2900 1100 Balance -[phone] -360 Meds/Results Medications: Active Medications Generic Name Dose Route Start Last Admin Trade Name Freq PRN Reason Stop Dose Admin Acetaminophen 1,000 mg 03/14/25 13:30 03/23/25 04:47 Acetaminophen 500 Mg Tablet PO 1,000 mg Q6HR EJ Administration Apixaban 5 mg 03/13/25 21:00 03/23/25 09:16 Apixaban 5 Mg Tablet PO 5 mg Q12HR EJ Administration Aspirin 81 mg 03/20/25 09:00 03/23/25 09:16 Aspirin 81 Mg Enteric Tablet PO 81 mg QAM EJ Administration Atorvastatin Calcium 10 mg 03/13/25 09:00 03/23/25 09:16 Atorvastatin 10 Mg Tablet PO 10 mg DAILY EJ Administration Carvedilol 6.25 mg 03/19/25 21:00 03/23/25 09:16 Carvedilol 6.25 Mg Tablet PO 6.25 mg Q12HR EJ Administration Cyclobenzaprine HCl 10 mg 03/19/25 16:55 03/22/25 21:17 Cyclobenzaprine Hcl 10 Mg Tablet PO 10 mg Q8H PRN Administration Muscle Spasm Dextrose 12.5 gm 03/13/25 08:49 Dextrose 50% 25 Gm/50 Ml Syringe IV PUSH PRN PRN Hypoglycemia Protocol Furosemide 20 mg 03/13/25 09:00 03/23/25 09:16 Furosemide 20 Mg Tablet PO 20 mg QAM EJ Administration Glucagon 1 mg 03/13/25 08:49 Glucagon For Inj 1 Mg Vial IM PRN PRN Hypoglycemia Protocol Glucose 15 gm 03/13/25 08:49 03/14/25 21:01 Glucose Oral Gel 15 Gm Of Glucse In 37.5 Gm Tube PO 15 gm PRN PRN Administration Hypoglycemia Protocol Dextrose 1,000 mls @ 100 mls/hr 03/13/25 08:49 Dextrose 5% 1,000 Ml IVPB PRN PRN Hypoglycemia Protocol Cefazolin Sodium 1 gm/ Sodium 50 mls @ 100 mls/hr 03/17/25 14:00 03/23/25 04:47 Chloride IVPB 100 mls/hr Q8HR EJ Administration Insulin Aspart 2 - 5 units 03/13/25 12:00 03/23/25 09:13 Insulin Aspart (*Bkc) 100 Units/Ml SUB-Q Not Given TIDWM [facility] Protocol Lidocaine 2 patch 03/14/25 09:00 03/23/25 09:17 Lidocaine 5% Patch TRANSDERM 2 patch DAILY EJ Administration Lisinopril 20 mg 03/13/25 21:00 03/22/25 21:19 Lisinopril 20 Mg Tablet PO 20 mg HS EJ Administration Morphine Sulfate 1 mg 03/21/25 12:34 Morphine Sulfate (*Crx) 4 Mg/Ml Inj IV PUSH Q6HR PRN Pain Rated 7-10 Ondansetron HCl 4 mg 03/13/25 08:49 Ondansetron Inj 4 Mg/2 Ml Vial IV PUSH Q6H PRN Nausea And Vomiting Oxycodone HCl 5 mg 03/14/25 13:14 03/23/25 10:50 Oxycodone Hcl (*Crx) 5 Mg Tab Ir PO 5 mg Q4H PRN Administration Pain Rated 7-10 Pantoprazole Sodium 40 mg 03/13/25 08:00 03/23/25 09:16 Pantoprazole 40 Mg Tablet PO 40 mg DAILY@0800 EJ Administration Potassium Chloride 40 meq 03/17/25 09:25 03/21/25 08:22 Potassium Chloride 20 Meq Packet (For Liquid) PO 40 meq On Hold: 03/21/25 12:34 BID EJ Administration Radiology Results: ITS Impressions Elbow X-Ray 03/13/25 07:04 Impression: 1: No acute bone or joint abnormality. Chest X-Ray 03/13/25 07:05 IMPRESSION: 1: NO ACUTE CARDIOPULMONARY DISEASE. Tibia/Fibula X-Ray 03/13/25 07:06 Impression: 1: Mild-moderate polyarticular osteoarthritis. Lumbar Spine X-Ray 03/14/25 18:51 IMPRESSION: Normal lumbar spine. Ankle Brachial Index 03/19/25 14:34 IMPRESSION: 1. No significant arterial occlusive disease to either lower limb with normal bilateral TBIs. Lumbar Spine CT 03/20/25 08:45 IMPRESSION: Aggressive process at the L1-2 interspace likely involving discitis, osteomyelitis of both vertebral bodies, and paraspinal phlegmon/developing abscess with possible epidural involvement as well. Correlation with contrast- enhanced lumbar spine MRI suggested. Skull X-Ray 03/20/25 14:40 Impression: No acute fracture or malalignment. Lumbar Spine MRI 03/20/25 18:05 IMPRESSION: 1. Evidence of acute discitis at L1-2 level with osteomyelitis involving L1 and L2 vertebral bodies.Para Vertebral inflammatory changes with microabscesses on both sides. 2. Significant narrowing of the thecal sac at L1-2 level as described above. 3. Findings at other disc levels are described above in detail. Labs Labs: Laboratory Results - last 24 hr 03/22/25 03/22/25 03/23/25 16:38 21:46 05:45 WBC 9.4 RBC 4.21 L Hgb 9.8 L Hct 32.3 L MCV 76.7 L MCH 23.3 L MCHC 30.3 L RDW 21.1 H Plt Count 622 H MPV 8.3 Immature Gran % (Auto) 1.1 H Neut % (Auto) 64.1 Lymph % (Auto) 23.6 [place] % (Auto) 6.8 Eos % (Auto) 3.4 Baso % (Auto) 1.0 Lymph # (Auto) 2.21 [place] # (Auto) 0.6 Eos # (Auto) 0.3 Baso # (Auto) 0.1 Abs Immat Gran (auto) 0.10 H Absolute Neuts (auto) 6.0 Absolute Nucleated RBC 0.000 Nucleated RBC % 0.0 Sodium 134 L Potassium 4.2 Chloride 102 Carbon Dioxide 28 Anion Gap 4 BUN 11 Creatinine 0.69 L Estim Creat Clear Calc 122 Estimated GFR > 60 Glucose 97 POC Capillary Glucose 125 H 111 H Calcium 8.7 03/23/25 07:44 WBC RBC Hgb Hct MCV MCH MCHC RDW Plt Count MPV Immature Gran % (Auto) Neut % (Auto) Lymph % (Auto) [place] % (Auto) Eos % (Auto) Baso % (Auto) Lymph # (Auto) [place] # (Auto) Eos # (Auto) Baso # (Auto) Abs Immat Gran (auto) Absolute Neuts (auto) Absolute Nucleated RBC Nucleated RBC % Sodium Potassium Chloride Carbon Dioxide Anion Gap BUN Creatinine Estim Creat Clear Calc Estimated GFR Glucose POC Capillary Glucose 106 H Calcium
--- NOTE | 2025-03-23 13:27 | PCOTNOTE ---
Patient stated , he planned on participating this afternoon, has had all the pain medication allowed and just having too much pain. Patient declined all activity this afternoon.
--- NOTE | 2025-03-23 13:37 | PM.IMPN ---
Progress Note: A&P Assessment and Plan (1) Septicemia: Code(s): A41.9 - Sepsis, unspecified organism Status: Acute Assessment and Plan: Patient presented to the ED with complaints of fall at home and worsening weakness and noted to have LLE draining wound, possibly cellulitis. He was started on Vancomycin, Cefepime and Flagyl. WCx: Morganella sensitive to bactrim. BCx (03/13) MSSA BCx (03/15) MSSA one aerobic bottle only TTE 03/17 showing no vegetations. Abx changed to Cefazolin/Bactrim PO on 03/17/25. Bactrim stopped 03/22 Repeat blood cultures on 03/21/25 NGTD Source from acute L1-L2 diskitis/osteomyelitis with paraspinal/possible epidural extension ID following Follow blood cultures from 03/21 ANTIONE recommended. Cardiology already consulted so will order ANTIONE (2) Septic discitis of lumbar region: Code(s): M46.46 - Discitis, unspecified, lumbar region Status: Acute Assessment and Plan: Patient has been having increasing back pain since October. Lumbar spine CT 03/20 showing an aggressive process at the L1-2 interspace likely involving discitis, osteomyelitis of both vertebral bodies, and paraspinal phlegmon/developing abscess with possible epidural involvement as well. Lumbar MRI 03/20 showing evidence of acute discitis at L1-2 level with osteomyelitis involving L1 and L2 vertebral bodies, para-vertebral inflammatory changes with microabscesses on both sides and significant narrowing of the thecal sac at L1-2 level Neurosurgery consulted and appreciate their help and felt to be non-surgical Pain control Antibiotic as per ID PT/OT as tolerated (3) Paraspinal abscess: Code(s): M46.20 - Osteomyelitis of vertebra, site unspecified Status: Acute Assessment and Plan: As above (4) Osteomyelitis of lumbar vertebra: Code(s): M46.26 - Osteomyelitis of vertebra, lumbar region Status: Acute Assessment and Plan: As above (5) Ventricular tachycardia seen on cardiac nurse practitioner: Code(s): I47.20 - Ventricular tachycardia, unspecified Status: Acute Assessment and Plan: Nonsustained ventricular tachycardia noted on tele. Cardiology consulted and appreciate their help Abnormal stress test in January showing a small region of mild reversible ischemia at the apical anterior, apical lateral and basilar inferolateral segments. Continue with aspirin, Coreg, Lipitor Further ischemic eval depending on symptoms and monitor results as outpatient once bacteremia clears(can be done as an outpatient) Plan to discharge on event monitor for 30 days Outpatient follow-up with Cardiology in 2-4 weeks upon discharge (6) Generalized weakness: Code(s): R53.1 - Weakness Status: Acute Assessment and Plan: Related to above PT/OT (7) Type 2 diabetes mellitus without complications: Code(s): E11.9 - Type 2 diabetes mellitus without complications Status: Acute Assessment and Plan: A1c 6.4% in January. The patient's blood glucose was reviewed on 03/23 Glucose remains well controlled. Continue AccuCheks covering with sliding scale. Hypoglycemia protocol available as needed. Continue to follow (8) Essential (primary) hypertension: Code(s): I10 - Essential (primary) hypertension Status: Acute Assessment and Plan: Patient's blood pressure was reviewed on 03/23 Blood pressure remains well controlled. Will continue to monitor (9) Stasis dermatitis: Code(s): I87.2 - Venous insufficiency (chronic) (peripheral) Status: Acute Assessment and Plan: Chronic venous insufficiency with stasis dermatitis LLE>RLE Cellulitis felt less likely. Wound care following Plan Code status: Full DVT prophylaxis: Eliquis Disposition: Pending improvement Subjective Date/time seen: 03/23/25 13:37 Interval history: 69yo male with DM, HTN, HLD, PVD, PEs, venous stasis bilateral lower extremities and chronic wounds bilateral who presented to the emergency department with complaints of fall at home and worsening weakness. Up to chair. Walking in [place]. No CP or SOB. Eating some. Complains of back pain. Exam Narrative: AF 97.7 122/63 70 18 93% ra Gen - NARD Chest - lungs clear anteriorly. CV - RRR S1/S2 Abd - Soft, NT/ND, Positive BS Ext - trace RLE edema. Neuro - Alert and appropriate Psych - Nml mood and affect Skin - chronic venous stasis skin changes bilateral shins L>R. Left swenson with significant dried, peeling scale with small area of evidence of weeping. Objective Data Vital Signs Vital Signs: Vital Signs - 24 hr 03/22/25 14:00 03/22/25 16:01 03/22/25 21:17 Temperature 97 F L Pulse Rate 76 74 77 Respiratory Rate 18 Blood Pressure 117/61 Pulse Oximetry 97 Oxygen Delivery 03/22/25 21:50 03/23/25 05:29 03/23/25 08:00 Temperature 97.2 F L 97.7 F Pulse Rate 75 70 70 Respiratory Rate 20 18 18 Blood Pressure 122/65 122/63 Pulse Oximetry 94 93 93 Oxygen Delivery Room Air Intake/Output Intake/Output: Intake & Output 03/20/25 03/21/25 03/22/25 03/23/25 23:59 23:59 23:59 23:59 Intake Total 590 1067 1934 740 Output Total 1400 2650 2900 1100 [facility] -[phone] -966 -360 Meds/Results Medications: Active Medications Generic Name Dose Route Start Last Admin Trade Name Freq PRN Reason Stop Dose Admin Acetaminophen 1,000 mg 03/14/25 13:30 03/23/25 13:12 Acetaminophen 500 Mg Tablet PO 1,000 mg Q6HR EJ Administration Apixaban 5 mg 03/13/25 21:00 03/23/25 09:16 Apixaban 5 Mg Tablet PO 5 mg Q12HR EJ Administration Aspirin 81 mg 03/20/25 09:00 03/23/25 09:16 Aspirin 81 Mg Enteric Tablet PO 81 mg QAM EJ Administration Atorvastatin Calcium 10 mg 03/13/25 09:00 03/23/25 09:16 Atorvastatin 10 Mg Tablet PO 10 mg DAILY EJ Administration Carvedilol 6.25 mg 03/19/25 21:00 03/23/25 09:16 Carvedilol 6.25 Mg Tablet PO 6.25 mg Q12HR EJ Administration Cyclobenzaprine HCl 10 mg 03/19/25 16:55 03/22/25 21:17 Cyclobenzaprine Hcl 10 Mg Tablet PO 10 mg Q8H PRN Administration Muscle Spasm Dextrose 12.5 gm 03/13/25 08:49 Dextrose 50% 25 Gm/50 Ml Syringe IV PUSH PRN PRN Hypoglycemia Protocol Furosemide 20 mg 03/13/25 09:00 03/23/25 09:16 Furosemide 20 Mg Tablet PO 20 mg QAM EJ Administration Glucagon 1 mg 03/13/25 08:49 Glucagon For Inj 1 Mg Vial IM PRN PRN Hypoglycemia Protocol Glucose 15 gm 03/13/25 08:49 03/14/25 21:01 Glucose Oral Gel 15 Gm Of Glucse In 37.5 Gm Tube PO 15 gm PRN PRN Administration Hypoglycemia Protocol Dextrose 1,000 mls @ 100 mls/hr 03/13/25 08:49 Dextrose 5% 1,000 Ml IVPB PRN PRN Hypoglycemia Protocol Cefazolin Sodium 1 gm/ Sodium 50 mls @ 100 mls/hr 03/17/25 14:00 03/23/25 04:47 Chloride IVPB 100 mls/hr Q8HR EJ Administration Insulin Aspart 2 - 5 units 03/13/25 12:00 03/23/25 13:13 Insulin Aspart (*Bkc) 100 Units/Ml SUB-Q Not Given TIDWM [facility] Protocol Lidocaine 2 patch 03/14/25 09:00 03/23/25 09:17 Lidocaine 5% Patch TRANSDERM 2 patch DAILY EJ Administration Lisinopril 20 mg 03/13/25 21:00 03/22/25 21:19 Lisinopril 20 Mg Tablet PO 20 mg HS EJ Administration Miscellaneous Information 1 each 03/23/25 00:01 Please Renew Oxycodone. Per [employer] Procedure, It Will Discontinue If Not Renewed. XX 04/22/25 00:00 CLARIFY EJ Morphine Sulfate 1 mg 03/21/25 12:34 Morphine Sulfate (*Crx) 4 Mg/Ml Inj IV PUSH Q6HR PRN Pain Rated 7-10 Ondansetron HCl 4 mg 03/13/25 08:49 Ondansetron Inj 4 Mg/2 Ml Vial IV PUSH Q6H PRN Nausea And Vomiting Oxycodone HCl 5 mg 03/14/25 13:14 03/23/25 10:50 Oxycodone Hcl (*Crx) 5 Mg Tab Ir PO 5 mg Q4H PRN Administration Pain Rated 7-10 Pantoprazole Sodium 40 mg 03/13/25 08:00 03/23/25 09:16 Pantoprazole 40 Mg Tablet PO 40 mg DAILY@0800 EJ Administration Potassium Chloride 40 meq 03/17/25 09:25 03/21/25 08:22 Potassium Chloride 20 Meq Packet (For Liquid) PO 40 meq On Hold: 03/21/25 12:34 BID EJ Administration Radiology Results: ITS Impressions Elbow X-Ray 03/13/25 07:04 Impression: 1: No acute bone or joint abnormality. Chest X-Ray 03/13/25 07:05 IMPRESSION: 1: NO ACUTE CARDIOPULMONARY DISEASE. Tibia/Fibula X-Ray 03/13/25 07:06 Impression: 1: Mild-moderate polyarticular osteoarthritis. Lumbar Spine X-Ray 03/14/25 18:51 IMPRESSION: Normal lumbar spine. Ankle Brachial Index 03/19/25 14:34 IMPRESSION: 1. No significant arterial occlusive disease to either lower limb with normal bilateral TBIs. Lumbar Spine CT 03/20/25 08:45 IMPRESSION: Aggressive process at the L1-2 interspace likely involving discitis, osteomyelitis of both vertebral bodies, and paraspinal phlegmon/developing abscess with possible epidural involvement as well. Correlation with contrast-enhanced lumbar spine MRI suggested. Skull X-Ray 03/20/25 14:40 Impression: No acute fracture or malalignment. Lumbar Spine MRI 03/20/25 18:05 IMPRESSION: 1. Evidence of acute discitis at L1-2 level with osteomyelitis involving L1 and L2 vertebral bodies.Para Vertebral inflammatory changes with microabscesses on both sides. 2. Significant narrowing of the thecal sac at L1-2 level as described above. 3. Findings at other disc levels are described above in detail. Labs Labs: Laboratory Results - last 24 hr 03/22/25 03/22/25 03/23/25 16:38 21:46 05:45 WBC 9.4 RBC 4.21 L Hgb 9.8 L Hct 32.3 L MCV 76.7 L MCH 23.3 L MCHC 30.3 L RDW 21.1 H Plt Count 622 H MPV 8.3 Immature Gran % (Auto) 1.1 H Neut % (Auto) 64.1 Lymph % (Auto) 23.6 [place] % (Auto) 6.8 Eos % (Auto) 3.4 Baso % (Auto) 1.0 Lymph # (Auto) 2.21 [place] # (Auto) 0.6 Eos # (Auto) 0.3 Baso # (Auto) 0.1 Abs Immat Gran (auto) 0.10 H Absolute Neuts (auto) 6.0 Absolute Nucleated RBC 0.000 Nucleated RBC % 0.0 Sodium 134 L Potassium 4.2 Chloride 102 Carbon Dioxide 28 Anion Gap 4 BUN 11 Creatinine 0.69 L Estim Creat Clear Calc 122 Estimated GFR > 60 Glucose 97 POC Capillary Glucose 125 H 111 H Calcium 8.7 03/23/25 03/23/25 07:44 13:08 WBC RBC Hgb Hct MCV MCH MCHC RDW Plt Count MPV Immature Gran % (Auto) Neut % (Auto) Lymph % (Auto) [place] % (Auto) Eos % (Auto) Baso % (Auto) Lymph # (Auto) [place] # (Auto) Eos # (Auto) Baso # (Auto) Abs Immat Gran (auto) Absolute Neuts (auto) Absolute Nucleated RBC Nucleated RBC % Sodium Potassium Chloride Carbon Dioxide Anion Gap BUN Creatinine Estim Creat Clear Calc Estimated GFR Glucose POC Capillary Glucose 106 H 182 H Calcium
[2025-03-23 14:00] VITALS: BP 124/84; PULSE 73; RESP 20; TEMP 36.1; O2SAT 95
[2025-03-23] MEDS: CYCLOBENZAPRINE HCL 10 MG TABLET PO (15:32)
[2025-03-23 20:00] VITALS: PULSE 73
[2025-03-23 21:12] VITALS: BP 151/70; PULSE 77; RESP 17; TEMP 36.5; O2SAT 92
[2025-03-23 21:56] VITALS: PULSE 77
[2025-03-24] VITALS (10 sets, daily range): BP systolic 102–129; BP diastolic 59–66; PULSE 67–85; RESP 17–18; TEMP 36–36.5; O2SAT 98–99
[2025-03-24] MEDS: ACETAMINOPHEN 500 MG TABLET 1000 MG PO ×5 (00:05→22:56)
[2025-03-24] MEDS: ceFAZolin 1 GM in SODIUM CHLORIDE 0.9% IV 50 ML 100 ML IVPB ×3 (05:15→22:56)
[2025-03-24 06:04] LABS: Hematocrit 34.0 % (42.0-52.0); Hemoglobin 10.3 g/dL (14.0-18.0); Immature Granulocyte Percent A 0.7 % (0-0.5); Lymphocytes Absolute Auto 2.39 K/mm3 (0.9-3.2); Mean Corpuscular HGB Conc 30.3 g/dl (32-36); Mean Corpuscular Hemoglobin 23.2 pg (26-34); Mean Corpuscular Volume 76.6 fl (80-100); Nucleated Red Blood Cells Absolute Auto 0.000 K/mm3 (0.0-0.012); Nucleated Red Blood Cells Perc 0.0 % (0.0-0.2); Platelet Count Result 693 k/mm3 (150-375); Red Blood Count 4.44 M/mm3 (4.6-6.20); White Blood Count 9.0 K/mm3 (4.5-10.0)
[2025-03-24 06:33] LABS: Albumin Level 3.4 g/dL (3.5-5.1); Anion Gap 8 mmol/L (4-12); Blood Urea Nitrogen 12 mg/dL (9-20); CRP 3.6 mg/dL (<1.0); Calcium 9.0 mg/dL (8.4-10.2); Carbon Dioxide 28 mmol/L (22-30); Chloride 100 mmol/L (98-107); Estimated CRCL calculation 129 ml/min; Estimated Glomerular Filt Rate > 60; Glucose 110 mg/dL (65-110); Potassium 4.1 mmol/L (3.4-5.0); Sodium 136 mmol/L (137-145)
[2025-03-24] MEDS: ASPIRIN 81 MG ENTERIC TABLET PO (09:52)
[2025-03-24] MEDS: ATORVASTATIN 10 MG TABLET PO (09:52)
[2025-03-24] MEDS: PANTOPRAZOLE 40 MG TABLET PO (09:52)
[2025-03-24] MEDS: FUROSEMIDE 20 MG TABLET PO (09:52)
[2025-03-24] MEDS: LIDOCAINE 5% PATCH 2 PATCH TRANSDERM (09:52)
[2025-03-24] MEDS: APIXABAN 5 MG TABLET PO ×2 (09:52→20:10)
[2025-03-24] MEDS: oxyCODONE HCL (*CRX) 5 MG TAB IR PO ×2 (10:10→20:09)
--- NOTE | 2025-03-24 12:34 | PM.IMPN ---
Progress Note: A&P Assessment and Plan (1) Septicemia: Code(s): A41.9 - Sepsis, unspecified organism Status: Acute Assessment and Plan: Patient presented to the ED with complaints of fall at home and worsening weakness and noted to have LLE draining wound, possibly cellulitis. He was started on Vancomycin, Cefepime and Flagyl. WCx: Morganella sensitive to bactrim. BCx (03/13) MSSA BCx (03/15) MSSA one aerobic bottle only TTE 03/17 showing no vegetations. Abx changed to Cefazolin/Bactrim PO on 03/17/25. Bactrim stopped 03/22 BCx (03/21) NGTD Source from acute L1-L2 diskitis/osteomyelitis with paraspinal/possible epidural extension and possibly cellulitis ID following Follow blood cultures from 03/21 ANTIONE recommended. Cardiology already consulted so will order ANTIONE (2) Septic discitis of lumbar region: Code(s): M46.46 - Discitis, unspecified, lumbar region Status: Acute Assessment and Plan: Patient has been having increasing back pain since October. Lumbar spine CT 03/20 showing an aggressive process at the L1-2 interspace likely involving discitis, osteomyelitis of both vertebral bodies, and paraspinal phlegmon/developing abscess with possible epidural involvement as well. Lumbar MRI 03/20 showing evidence of acute discitis at L1-2 level with osteomyelitis involving L1 and L2 vertebral bodies, para-vertebral inflammatory changes with microabscesses on both sides and significant narrowing of the thecal sac at L1-2 level Neurosurgery consulted and appreciate their help. Recommendations felt condition to be non-surgical Pain control Antibiotic as per ID PT/OT as tolerated (3) Paraspinal abscess: Code(s): M46.20 - Osteomyelitis of vertebra, site unspecified Status: Acute Assessment and Plan: As above (4) Osteomyelitis of lumbar vertebra: Code(s): M46.26 - Osteomyelitis of vertebra, lumbar region Status: Acute Assessment and Plan: As above (5) Ventricular tachycardia seen on marker hand: Code(s): I47.20 - Ventricular tachycardia, unspecified Status: Acute Assessment and Plan: Nonsustained ventricular tachycardia noted on tele. Cardiology consulted and appreciate their help Abnormal stress test in January showing a small region of mild reversible ischemia at the apical anterior, apical lateral and basilar inferolateral segments. Continue with aspirin, Coreg, Lipitor Further ischemic eval depending on symptoms and monitor results as outpatient once bacteremia clears(can be done as an outpatient) Plan to discharge on event monitor for 30 days Outpatient follow-up with Cardiology in 2-4 weeks upon discharge (6) Generalized weakness: Code(s): R53.1 - Weakness Status: Acute Assessment and Plan: Related to above PT/OT (7) Type 2 diabetes mellitus without complications: Code(s): E11.9 - Type 2 diabetes mellitus without complications Status: Acute Assessment and Plan: A1c 6.4% in January. The patient's blood glucose was reviewed on 03/24 Glucose remains well controlled. Continue AccuCheks covering with sliding scale. Hypoglycemia protocol available as needed. Continue to follow (8) Essential (primary) hypertension: Code(s): I10 - Essential (primary) hypertension Status: Acute Assessment and Plan: Patient's blood pressure was reviewed on 03/24 Blood pressure remains well controlled. Will continue to monitor (9) Stasis dermatitis: Code(s): I87.2 - Venous insufficiency (chronic) (peripheral) Status: Acute Assessment and Plan: Chronic venous insufficiency with stasis dermatitis LLE>RLE Possible cellulitis on admission given the resolution of the erythema. Wound care following. Add Eucerin cream for skin care Plan Code status: Full DVT prophylaxis: Eliquis Disposition: Pending improvement Subjective Date/time seen: 03/24/25 12:34 Interval history: 69yo male with DM, HTN, HLD, PVD, PEs, venous stasis bilateral lower extremities and chronic wounds bilateral who presented to the emergency department with complaints of fall at home and worsening weakness. Slept off and on. No chest pain. No shortness of breath. Does have dyspnea on exertion. No nausea or vomiting Exam Narrative: AF 96.8 102/66 77 17 98% ra Gen - NARD Chest -lungs clear to auscultation bilaterally. CV - RRR S1/S2. Tele showing no significant dysrhythmias Abd - Soft, NT/ND, Positive BS Ext -no RLE edema. Neuro - Alert and appropriate Psych - Nml mood and affect Skin - chronic venous stasis skin changes bilateral shins L>R. Left swenson with significant dried, peeling scale with small area of evidence of weeping. Scant residual erythema. Marked decreased erythema from the marked lines on the shins. Objective Data Vital Signs Vital Signs: Vital Signs - 24 hr 03/23/25 14:00 03/23/25 20:00 03/23/25 20:00 Temperature 97.0 F L Pulse Rate 73 73 Respiratory Rate 20 Blood Pressure 124/84 Pulse Oximetry 95 Oxygen Delivery Room Air 03/23/25 21:12 03/23/25 21:56 03/24/25 00:00 Temperature 97.7 F Pulse Rate 77 77 76 Respiratory Rate 17 Blood Pressure 151/70 H Pulse Oximetry 92 Oxygen Delivery 03/24/25 04:00 03/24/25 05:48 03/24/25 09:51 Temperature 96.8 F L Pulse Rate 75 77 77 Respiratory Rate 17 Blood Pressure 102/66 Pulse Oximetry 98 Oxygen Delivery Intake/Output Intake/Output: Intake & Output 03/21/25 03/22/25 03/23/25 03/24/25 23:59 23:59 23:59 23:59 Intake Total 1067 1934 1370 776 Output Total 2650 2900 1900 500 Balance -1583 -966 -530 276 Meds/Results Medications: Active Medications Generic Name Dose Route Start Last Admin Trade Name Freq PRN Reason Stop Dose Admin Acetaminophen 1,000 mg 03/14/25 13:30 03/24/25 05:15 Acetaminophen 500 Mg Tablet PO 1,000 mg Q6HR EJ Administration Apixaban 5 mg 03/13/25 21:00 03/24/25 09:52 Apixaban 5 Mg Tablet PO 5 mg Q12HR EJ Administration Aspirin 81 mg 03/20/25 09:00 03/24/25 09:52 Aspirin 81 Mg Enteric Tablet PO 81 mg QAM EJ Administration Atorvastatin Calcium 10 mg 03/13/25 09:00 03/24/25 09:52 Atorvastatin 10 Mg Tablet PO 10 mg DAILY EJ Administration Carvedilol 6.25 mg 03/19/25 21:00 03/24/25 09:51 Carvedilol 6.25 Mg Tablet PO 6.25 mg Q12HR EJ Administration Cyclobenzaprine HCl 10 mg 03/19/25 16:55 03/23/25 15:32 Cyclobenzaprine Hcl 10 Mg Tablet PO 10 mg Q8H PRN Administration Muscle Spasm Dextrose 12.5 gm 03/13/25 08:49 Dextrose 50% 25 Gm/50 Ml Syringe IV PUSH PRN PRN Hypoglycemia Protocol Furosemide 20 mg 03/13/25 09:00 03/24/25 09:52 Furosemide 20 Mg Tablet PO 20 mg QAM EJ Administration Glucagon 1 mg 03/13/25 08:49 Glucagon For Inj 1 Mg Vial IM PRN PRN Hypoglycemia Protocol Glucose 15 gm 03/13/25 08:49 03/14/25 21:01 Glucose Oral Gel 15 Gm Of Glucse In 37.5 Gm Tube PO 15 gm PRN PRN Administration Hypoglycemia Protocol Dextrose 1,000 mls @ 100 mls/hr 03/13/25 08:49 Dextrose 5% 1,000 Ml IVPB PRN PRN Hypoglycemia Protocol Cefazolin Sodium 1 gm/ Sodium 50 mls @ 100 mls/hr 03/17/25 14:00 03/24/25 05:15 Chloride IVPB 100 mls/hr Q8HR EJ Administration Insulin Aspart 2 - 5 units 03/13/25 12:00 03/24/25 09:56 Insulin Aspart (*Bkc) 100 Units/Ml SUB-Q Not Given TIDWM [facility] Protocol Lidocaine 2 patch 03/14/25 09:00 03/24/25 09:52 Lidocaine 5% Patch TRANSDERM 2 patch DAILY EJ Administration Lisinopril 20 mg 03/13/25 21:00 03/23/25 21:56 Lisinopril 20 Mg Tablet PO 20 mg HS EJ Administration Miscellaneous Information 1 each 03/23/25 00:01 Please Renew Oxycodone. Per [employer] Procedure, It Will Discontinue If Not Renewed. XX 04/22/25 00:00 CLARIFY EJ Ondansetron HCl 4 mg 03/13/25 08:49 Ondansetron Inj 4 Mg/2 Ml Vial IV PUSH Q6H PRN Nausea And Vomiting Oxycodone HCl 5 mg 03/14/25 13:14 03/24/25 10:10 Oxycodone Hcl (*Crx) 5 Mg Tab Ir PO 5 mg Q4H PRN Administration Pain Rated 6 or Greater Oxycodone HCl 2.5 mg 03/24/25 07:57 Oxycodone Hcl (*Crx) 2.5 Mg Tab Ir PO Q4H PRN Pain Rated 5 or Less Pantoprazole Sodium 40 mg 03/13/25 08:00 03/24/25 09:52 Pantoprazole 40 Mg Tablet PO 40 mg DAILY@0800 EJ Administration Polyethylene Glycol 17 gm 03/23/25 19:35 03/24/25 09:51 Polyethylene Glycol 3350 17 Gm Powd.Pack PO 17 gm QAM EJ Administration Radiology Results: ITS Impressions Elbow X-Ray 03/13/25 07:04 Impression: 1: No acute bone or joint abnormality. Chest X-Ray 03/13/25 07:05 IMPRESSION: 1: NO ACUTE CARDIOPULMONARY DISEASE. Tibia/Fibula X-Ray 03/13/25 07:06 Impression: 1: Mild-moderate polyarticular osteoarthritis. Lumbar Spine X-Ray 03/14/25 18:51 IMPRESSION: Normal lumbar spine. Ankle Brachial Index 03/19/25 14:34 IMPRESSION: 1. No significant arterial occlusive disease to either lower limb with normal bilateral TBIs. Lumbar Spine CT 03/20/25 08:45 IMPRESSION: Aggressive process at the L1-2 interspace likely involving discitis, osteomyelitis of both vertebral bodies, and paraspinal phlegmon/developing abscess with possible epidural involvement as well. Correlation with contrast-enhanced lumbar spine MRI suggested. Skull X-Ray 03/20/25 14:40 Impression: No acute fracture or malalignment. Lumbar Spine MRI 03/20/25 18:05 IMPRESSION: 1. Evidence of acute discitis at L1-2 level with osteomyelitis involving L1 and L2 vertebral bodies.Para Vertebral inflammatory changes with microabscesses on both sides. 2. Significant narrowing of the thecal sac at L1-2 level as described above. 3. Findings at other disc levels are described above in detail. Labs Labs: Laboratory Results - last 24 hr 03/23/25 03/23/25 03/24/25 13:08 21:23 05:26 WBC 9.0 RBC 4.44 L Hgb 10.3 L Hct 34.0 L MCV 76.6 L MCH 23.2 L MCHC 30.3 L RDW 21.1 H Plt Count 693 H MPV 8.4 Immature Gran % (Auto) 0.7 H Neut % (Auto) 60.1 Lymph % (Auto) 26.7 [place] % (Auto) 7.6 Eos % (Auto) 4.1 Baso % (Auto) 0.8 Lymph # (Auto) 2.39 [place] # (Auto) 0.7 H Eos # (Auto) 0.4 H Baso # (Auto) 0.1 Abs Immat Gran (auto) 0.06 H Absolute Neuts (auto) 5.4 Absolute Nucleated RBC 0.000 Nucleated RBC % 0.0 Sodium 136 L Potassium 4.1 Chloride 100 Carbon Dioxide 28 Anion Gap 8 BUN 12 Creatinine 0.65 L Estim Creat Clear Calc 129 Estimated GFR > 60 Glucose 110 POC Capillary Glucose 182 H 135 H Calcium 9.0 Phosphorus 4.5 C-Reactive Protein 3.6 H Albumin 3.4 L 03/24/25 03/24/25 07:46 11:53 WBC RBC Hgb Hct MCV MCH MCHC RDW Plt Count MPV Immature Gran % (Auto) Neut % (Auto) Lymph % (Auto) [place] % (Auto) Eos % (Auto) Baso % (Auto) Lymph # (Auto) [place] # (Auto) Eos # (Auto) Baso # (Auto) Abs Immat Gran (auto) Absolute Neuts (auto) Absolute Nucleated RBC Nucleated RBC % Sodium Potassium Chloride Carbon Dioxide Anion Gap BUN Creatinine Estim Creat Clear Calc Estimated GFR Glucose POC Capillary Glucose 126 H 149 H Calcium Phosphorus C-Reactive Protein Albumin
[2025-03-24] MEDS: EUCERIN CREAM 120 GM JAR 1 APPLIC TOPICAL (17:44)
[2025-03-25] VITALS (10 sets, daily range): BP systolic 114–115; BP diastolic 58–68; PULSE 70–85; RESP 16–18; TEMP 35.7–36.1; O2SAT 97
[2025-03-25] MEDS: ACETAMINOPHEN 500 MG TABLET 1000 MG PO ×4 (05:09→23:45)
[2025-03-25] MEDS: ceFAZolin 1 GM in SODIUM CHLORIDE 0.9% IV 50 ML 100 ML IVPB ×3 (05:09→21:09)
[2025-03-25] MEDS: ASPIRIN 81 MG ENTERIC TABLET PO (09:03)
[2025-03-25] MEDS: FUROSEMIDE 20 MG TABLET PO (09:03)
[2025-03-25] MEDS: ATORVASTATIN 10 MG TABLET PO (09:03)
[2025-03-25] MEDS: APIXABAN 5 MG TABLET PO ×2 (09:03→20:51)
[2025-03-25] MEDS: PANTOPRAZOLE 40 MG TABLET PO (09:03)
[2025-03-25] MEDS: LIDOCAINE 5% PATCH 2 PATCH TRANSDERM (09:04)
[2025-03-25] MEDS: EUCERIN CREAM 120 GM JAR 1 APPLIC TOPICAL ×2 (09:05→16:12)
[2025-03-25] MEDS: oxyCODONE HCL (*CRX) 5 MG TAB IR PO (11:02)
--- NOTE | 2025-03-25 12:45 | P.PNCA_ITS ---
Progress Note: A&P Assessment and Plan (1) Ventricular tachycardia seen on gambling monitor: Code(s): I47.20 - Ventricular tachycardia, unspecified Status: Acute (2) Abnormal nuclear stress test: Code(s): R94.39 - Abnormal result of other cardiovascular function study Status: Acute (3) Peripheral vascular disease: Code(s): I73.9 - Peripheral vascular disease, unspecified Status: Acute Plan Bacteremia, plan ANTIONE NSVT - Cont carvedilol 6.25 mg p.o. b.i.d. and tolerating well Abnormal stress test -small area of mild intensity ischemia -started aspirin 81 mg p.o. daily and coreg 6.25mg PO BID -continue atorvastatin 10 mg p.o. qhs for goal LDL less than 70 -will discuss further ischemic eval depending on symptoms and monitor results in clinic once bacteremia clears (can be done on OP basis) Subjective Date/time seen: 03/25/25 12:45 Interval history: follow up Bacteremia Tele: NSR and pVCs Review of Systems Review of Systems: All systems reviewed & are unremarkable except as noted in HPI and below Exam Const: General: comfortable HENMT: Mouth: Yes moist mucous membranes Eyes: EOM: EOMs intact bilaterally Neck: Neck: no JVD Resp: Effort & Inspection: normal respiratory effort Auscultation: clear to auscultation bilaterally Cardio: Rate: regular rate Rhythm: regular rhythm Skin: General skin exam: wounds noted Wounds: wounds noted Objective Data Vital Signs Vital Signs: Vital Signs - 24 hr 03/24/25 14:00 03/24/25 16:00 03/24/25 20:10 Temperature 36.5 C Pulse Rate 71 67 85 Respiratory Rate 18 Blood Pressure 109/59 L Pulse Oximetry 99 03/24/25 20:35 03/25/25 00:00 03/25/25 04:00 Temperature 36.2 C L Pulse Rate 80 77 77 Respiratory Rate 18 Blood Pressure 129/66 Pulse Oximetry 99 03/25/25 05:44 03/25/25 08:00 03/25/25 09:02 Temperature 35.9 C L Pulse Rate 82 85 80 Respiratory Rate 17 Blood Pressure 114/65 Pulse Oximetry 97 Intake/Output Intake/Output: Intake & Output 03/22/25 03/23/25 03/24/25 03/25/25 23:59 23:59 23:59 23:59 Intake Total 1934 1370 1406 726 Output Total 2900 1900 1000 800 [id number] 406 -74 Meds/Results Medications: Active Medications Generic Name Dose Route Start Last Admin Trade Name Freq PRN Reason Stop Dose Admin Acetaminophen 1,000 mg 03/14/25 13:30 03/25/25 05:09 Acetaminophen 500 Mg Tablet PO 1,000 mg Q6HR EJ Administration Apixaban 5 mg 03/13/25 21:00 03/25/25 09:03 Apixaban 5 Mg Tablet PO 5 mg Q12HR EJ Administration Aspirin 81 mg 03/20/25 09:00 03/25/25 09:03 Aspirin 81 Mg Enteric Tablet PO 81 mg QAM EJ Administration Atorvastatin Calcium 10 mg 03/13/25 09:00 03/25/25 09:03 Atorvastatin 10 Mg Tablet PO 10 mg DAILY EJ Administration Carvedilol 6.25 mg 03/19/25 21:00 03/25/25 09:02 Carvedilol 6.25 Mg Tablet PO 6.25 mg Q12HR EJ Administration Cyclobenzaprine HCl 10 mg 03/19/25 16:55 03/23/25 15:32 Cyclobenzaprine Hcl 10 Mg Tablet PO 10 mg Q8H PRN Administration Muscle Spasm Dextrose 12.5 gm 03/13/25 08:49 Dextrose 50% 25 Gm/50 Ml Syringe IV PUSH PRN PRN Hypoglycemia Protocol Furosemide 20 mg 03/13/25 09:00 03/25/25 09:03 Furosemide 20 Mg Tablet PO 20 mg QAM EJ Administration Glucagon 1 mg 03/13/25 08:49 Glucagon For Inj 1 Mg Vial IM PRN PRN Hypoglycemia Protocol Glucose 15 gm 03/13/25 08:49 03/14/25 21:01 Glucose Oral Gel 15 Gm Of Glucse In 37.5 Gm Tube PO 15 gm PRN PRN Administration Hypoglycemia Protocol Dextrose 1,000 mls @ 100 mls/hr 03/13/25 08:49 Dextrose 5% 1,000 Ml IVPB PRN PRN Hypoglycemia Protocol Cefazolin Sodium 1 gm/ Sodium 50 mls @ 100 mls/hr 03/17/25 14:00 03/25/25 05:09 Chloride IVPB 100 mls/hr Q8HR EJ Administration Insulin Aspart 2 - 5 units 03/13/25 12:00 03/25/25 09:04 Insulin Aspart (*Bkc) 100 Units/Ml SUB-Q Not Given TIDWM [facility] Protocol Lidocaine 2 patch 03/14/25 09:00 03/25/25 09:04 Lidocaine 5% Patch TRANSDERM 2 patch DAILY EJ Administration Lisinopril 20 mg 03/13/25 21:00 03/24/25 20:10 Lisinopril 20 Mg Tablet PO 20 mg HS EJ Administration Miscellaneous Information 1 each 03/23/25 00:01 Please Renew Oxycodone. Per [employer] Procedure, It Will Discontinue If Not Renewed. XX 04/22/25 00:00 CLARIFY EJ Multi-Ingred Cream/Lotion/Oil/Oint 1 applic 03/24/25 17:00 03/25/25 09:05 Eucerin Cream 120 Gm Jar TOPICAL 1 applic BID EJ Administration Ondansetron HCl 4 mg 03/13/25 08:49 Ondansetron Inj 4 Mg/2 Ml Vial IV PUSH Q6H PRN Nausea And Vomiting Oxycodone HCl 5 mg 03/14/25 13:14 03/25/25 11:02 Oxycodone Hcl (*Crx) 5 Mg Tab Ir PO 5 mg Q4H PRN Administration Pain Rated 6 or Greater Oxycodone HCl 2.5 mg 03/24/25 07:57 Oxycodone Hcl (*Crx) 2.5 Mg Tab Ir PO Q4H PRN Pain Rated 5 or Less Pantoprazole Sodium 40 mg 03/13/25 08:00 03/25/25 09:03 Pantoprazole 40 Mg Tablet PO 40 mg DAILY@0800 [facility] Administration Polyethylene Glycol 17 gm 03/23/25 19:35 03/25/25 09:04 Polyethylene Glycol 3350 17 Gm Powd.Pack PO 17 gm QAM EJ Administration Radiology Results: ITS Impressions Elbow X-Ray 03/13/25 07:04 Impression: 1: No acute bone or joint abnormality. Chest X-Ray 03/13/25 07:05 IMPRESSION: 1: NO ACUTE CARDIOPULMONARY DISEASE. Tibia/Fibula X-Ray 03/13/25 07:06 Impression: 1: Mild-moderate polyarticular osteoarthritis. Lumbar Spine X-Ray 03/14/25 18:51 IMPRESSION: Normal lumbar spine. Ankle Brachial Index 03/19/25 14:34 IMPRESSION: 1. No significant arterial occlusive disease to either lower limb with normal bilateral TBIs. Lumbar Spine CT 03/20/25 08:45 IMPRESSION: Aggressive process at the L1-2 interspace likely involving discitis, osteomyelitis of both vertebral bodies, and paraspinal phlegmon/developing abscess with possible epidural involvement as well. Correlation with contrast- enhanced lumbar spine MRI suggested. Skull X-Ray 03/20/25 14:40 Impression: No acute fracture or malalignment. Lumbar Spine MRI 03/20/25 18:05 IMPRESSION: 1. Evidence of acute discitis at L1-2 level with osteomyelitis involving L1 and L2 vertebral bodies.Para Vertebral inflammatory changes with microabscesses on both sides. 2. Significant narrowing of the thecal sac at L1-2 level as described above. 3. Findings at other disc levels are described above in detail. Labs Labs: Laboratory Results - last 24 hr 03/24/25 03/24/25 03/25/25 16:37 19:59 07:20 POC Capillary Glucose 148 H 174 H 124 H 03/25/25 11:15 POC Capillary Glucose 183 H
--- NOTE | 2025-03-25 13:59 | P.PNIM_ITS ---
Progress Note: A&P Assessment and Plan (1) Septicemia: Code(s): A41.9 - Sepsis, unspecified organism Status: Acute Assessment and Plan: Patient presented to the ED with complaints of fall at home and worsening weakness and noted to have LLE draining wound, possibly cellulitis. He was started on Vancomycin, Cefepime and Flagyl. WCx: Morganella sensitive to bactrim. BCx (03/13) MSSA BCx (03/15) MSSA one aerobic bottle only TTE 03/17 showing no vegetations. Abx changed to Cefazolin/Bactrim PO on 03/17/25. Bactrim stopped 03/22 BCx (03/21) NGTD Source from acute L1-L2 diskitis/osteomyelitis with paraspinal/possible epidural extension and possibly cellulitis ID following Follow blood cultures from 03/21 ANTIONE recommended. Cardiology was re-consulted for ANTIONE; spoke with them today and they will set up for tomorrow. NPO after MN. (2) Septic discitis of lumbar region: Code(s): M46.46 - Discitis, unspecified, lumbar region Status: Acute Assessment and Plan: Patient has been having increasing back pain since October. Lumbar spine CT 03/20 showing an aggressive process at the L1-2 interspace likely involving discitis, osteomyelitis of both vertebral bodies, and paraspinal phlegmon/developing abscess with possible epidural involvement as well. Lumbar MRI 03/20 showing evidence of acute discitis at L1-2 level with osteomyelitis involving L1 and L2 vertebral bodies, para-vertebral inflammatory changes with microabscesses on both sides and significant narrowing of the thecal sac at L1-2 level Neurosurgery consulted and appreciate their help. Recommendations felt condition to be non-surgical Pain control Antibiotic as per ID PT/OT as tolerated. Placement being arranged. May need to change to an abx with daily or Q12HR schdule (or use continuous infusion with bulb) (3) Paraspinal abscess: Code(s): M46.20 - Osteomyelitis of vertebra, site unspecified Status: Acute Assessment and Plan: As above (4) Osteomyelitis of lumbar vertebra: Code(s): M46.26 - Osteomyelitis of vertebra, lumbar region Status: Acute Assessment and Plan: As above (5) Ventricular tachycardia seen on quality assurance monitor chassis: Code(s): I47.20 - Ventricular tachycardia, unspecified Status: Acute Assessment and Plan: Nonsustained ventricular tachycardia noted on tele. Cardiology consulted and appreciate their help Abnormal stress test in January showing a small region of mild reversible ischemia at the apical anterior, apical lateral and basilar inferolateral segments. Continue with aspirin, Coreg, Lipitor Further ischemic eval depending on symptoms and monitor results as outpatient once bacteremia clears(can be done as an outpatient) Plan to discharge on event monitor for 30 days Outpatient follow-up with Cardiology in 2-4 weeks upon discharge (6) Generalized weakness: Code(s): R53.1 - Weakness Status: Acute Assessment and Plan: Related to above PT/OT (7) Type 2 diabetes mellitus without complications: Code(s): E11.9 - Type 2 diabetes mellitus without complications Status: Acute Assessment and Plan: A1c 6.4% in January. The patient's blood glucose was reviewed on 03/25 Glucose remains well controlled. Continue AccuCheks covering with sliding scale. Hypoglycemia protocol available as needed. Continue to follow (8) Essential (primary) hypertension: Code(s): I10 - Essential (primary) hypertension Status: Acute Assessment and Plan: Patient's blood pressure was reviewed on 03/25 Blood pressure remains well controlled. Will continue to monitor (9) Stasis dermatitis: Code(s): I87.2 - Venous insufficiency (chronic) (peripheral) Status: Acute Assessment and Plan: Chronic venous insufficiency with stasis dermatitis LLE>RLE Possible cellulitis on admission given the resolution of the erythema. Wound care following. Continue Eucerin cream for skin care Plan Code status: Full DVT prophylaxis: Eliquis Disposition: Pending improvement Subjective Date/time seen: 03/25/25 13:59 Interval history: 69yo male with DM, HTN, HLD, PVD, PEs, venous stasis bilateral lower extremities and chronic wounds bilateral who presented to the emergency department with complaints of fall at home and worsening weakness. Back pain better. No chest pain or shortness of breath. Eating well. Normal bowel movements. Voiding normally. Exam Narrative: AF 96.2 115/58 70 16 97% ra Gen - NARD Chest -lungs clear to auscultation bilaterally. CV - RRR S1/S2. Tele showing no significant dysrhythmias Abd - Soft, NT/ND, Positive BS Ext -no pedal edema. Neuro - Alert and appropriate Psych - Nml mood and affect Skin - chronic venous stasis skin changes bilateral shins L>R. Improvement of the dried, peeling scale. No residual LE erythema. Objective Data Vital Signs Vital Signs: Vital Signs - 24 hr 03/24/25 14:00 03/24/25 16:00 03/24/25 20:10 Temperature 97.7 F Pulse Rate 71 67 85 Respiratory Rate 18 Blood Pressure 109/59 L Pulse Oximetry 99 03/24/25 20:35 03/25/25 00:00 03/25/25 04:00 Temperature 97.1 F L Pulse Rate 80 77 77 Respiratory Rate 18 Blood Pressure 129/66 Pulse Oximetry 99 03/25/25 05:44 03/25/25 08:00 03/25/25 09:02 Temperature 96.6 F L Pulse Rate 82 85 80 Respiratory Rate 17 Blood Pressure 114/65 Pulse Oximetry 97 03/25/25 13:55 Temperature 96.2 F L Pulse Rate 70 Respiratory Rate 16 Blood Pressure 115/58 L Pulse Oximetry 97 Intake/Output Intake/Output: Intake & Output 03/22/25 03/23/25 03/24/25 03/25/25 23:59 23:59 23:59 23:59 Intake Total 1934 1370 1406 776 Output Total 2900 1900 1000 800 Balance -966 -530 406 -24 Meds/Results Medications: Active Medications Generic Name Dose Route Start Last Admin Trade Name Freq PRN Reason Stop Dose Admin Acetaminophen 1,000 mg 03/14/25 13:30 03/25/25 12:57 Acetaminophen 500 Mg Tablet PO 1,000 mg Q6HR EJ Administration Apixaban 5 mg 03/13/25 21:00 03/25/25 09:03 Apixaban 5 Mg Tablet PO 5 mg Q12HR EJ Administration Aspirin 81 mg 03/20/25 09:00 03/25/25 09:03 Aspirin 81 Mg Enteric Tablet PO 81 mg QAM EJ Administration Atorvastatin Calcium 10 mg 03/13/25 09:00 03/25/25 09:03 Atorvastatin 10 Mg Tablet PO 10 mg DAILY EJ Administration Carvedilol 6.25 mg 03/19/25 21:00 03/25/25 09:02 Carvedilol 6.25 Mg Tablet PO 6.25 mg Q12HR EJ Administration Cyclobenzaprine HCl 10 mg 03/19/25 16:55 03/23/25 15:32 Cyclobenzaprine Hcl 10 Mg Tablet PO 10 mg Q8H PRN Administration Muscle Spasm Dextrose 12.5 gm 03/13/25 08:49 Dextrose 50% 25 Gm/50 Ml Syringe IV PUSH PRN PRN Hypoglycemia Protocol Furosemide 20 mg 03/13/25 09:00 03/25/25 09:03 Furosemide 20 Mg Tablet PO 20 mg QAM EJ Administration Glucagon 1 mg 03/13/25 08:49 Glucagon For Inj 1 Mg Vial IM PRN PRN Hypoglycemia Protocol Glucose 15 gm 03/13/25 08:49 03/14/25 21:01 Glucose Oral Gel 15 Gm Of Glucse In 37.5 Gm Tube PO 15 gm PRN PRN Administration Hypoglycemia Protocol Dextrose 1,000 mls @ 100 mls/hr 03/13/25 08:49 Dextrose 5% 1,000 Ml IVPB PRN PRN Hypoglycemia Protocol Cefazolin Sodium 1 gm/ Sodium 50 mls @ 100 mls/hr 03/17/25 14:00 03/25/25 13:57 Chloride IVPB 100 mls/hr Q8HR EJ Administration Insulin Aspart 2 - 5 units 03/13/25 12:00 03/25/25 12:47 Insulin Aspart (*Bkc) 100 Units/Ml SUB-Q Not Given TIDWM EJ Protocol Lidocaine 2 patch 03/14/25 09:00 03/25/25 09:04 Lidocaine 5% Patch TRANSDERM 2 patch DAILY EJ Administration Lisinopril 20 mg 03/13/25 21:00 03/24/25 20:10 Lisinopril 20 Mg Tablet PO 20 mg HS EJ Administration Miscellaneous Information 1 each 03/23/25 00:01 Please Renew Oxycodone. Per [employer] Procedure, It Will Discontinue If Not Renewed. XX 04/22/25 00:00 CLARIFY EJ Multi-Ingred Cream/Lotion/Oil/Oint 1 applic 03/24/25 17:00 03/25/25 09:05 Eucerin Cream 120 Gm Jar TOPICAL 1 applic BID EJ Administration Ondansetron HCl 4 mg 03/13/25 08:49 Ondansetron Inj 4 Mg/2 Ml Vial IV PUSH Q6H PRN Nausea And Vomiting Oxycodone HCl 5 mg 03/14/25 13:14 03/25/25 11:02 Oxycodone Hcl (*Crx) 5 Mg Tab Ir PO 5 mg Q4H PRN Administration Pain Rated 6 or Greater Oxycodone HCl 2.5 mg 03/24/25 07:57 Oxycodone Hcl (*Crx) 2.5 Mg Tab Ir PO Q4H PRN Pain Rated 5 or Less Pantoprazole Sodium 40 mg 03/13/25 08:00 03/25/25 09:03 Pantoprazole 40 Mg Tablet PO 40 mg DAILY@0800 [facility] Administration Polyethylene Glycol 17 gm 03/23/25 19:35 03/25/25 09:04 Polyethylene Glycol 3350 17 Gm Powd.Pack PO 17 gm QAM EJ Administration Radiology Results: ITS Impressions Elbow X-Ray 03/13/25 07:04 Impression: 1: No acute bone or joint abnormality. Chest X-Ray 03/13/25 07:05 IMPRESSION: 1: NO ACUTE CARDIOPULMONARY DISEASE. Tibia/Fibula X-Ray 03/13/25 07:06 Impression: 1: Mild-moderate polyarticular osteoarthritis. Lumbar Spine X-Ray 03/14/25 18:51 IMPRESSION: Normal lumbar spine. Ankle Brachial Index 03/19/25 14:34 IMPRESSION: 1. No significant arterial occlusive disease to either lower limb with normal bilateral TBIs. Lumbar Spine CT 03/20/25 08:45 IMPRESSION: Aggressive process at the L1-2 interspace likely involving discitis, osteomyelitis of both vertebral bodies, and paraspinal phlegmon/developing abscess with possible epidural involvement as well. Correlation with contrast- enhanced lumbar spine MRI suggested. Skull X-Ray 03/20/25 14:40 Impression: No acute fracture or malalignment. Lumbar Spine MRI 03/20/25 18:05 IMPRESSION: 1. Evidence of acute discitis at L1-2 level with osteomyelitis involving L1 and L2 vertebral bodies.Para Vertebral inflammatory changes with microabscesses on both sides. 2. Significant narrowing of the thecal sac at L1-2 level as described above. 3. Findings at other disc levels are described above in detail. Labs Labs: Laboratory Results - last 24 hr 03/24/25 03/24/25 03/25/25 16:37 19:59 07:20 POC Capillary Glucose 148 H 174 H 124 H 03/25/25 11:15 POC Capillary Glucose 183 H
[2025-03-26] VITALS (11 sets, daily range): BP systolic 103–118; BP diastolic 53–64; PULSE 67–84; RESP 15–18; TEMP 36.4–36.8; O2SAT 93–97
[2025-03-26] MEDS: ceFAZolin 1 GM in SODIUM CHLORIDE 0.9% IV 50 ML 100 ML IVPB ×2 (05:43→13:15)
[2025-03-26 06:14] LABS: Hematocrit 33.9 % (42.0-52.0); Hemoglobin 10.1 g/dL (14.0-18.0); Mean Corpuscular HGB Conc 29.8 g/dl (32-36); Mean Corpuscular Hemoglobin 23.2 pg (26-34); Mean Corpuscular Volume 77.8 fl (80-100); Platelet Count Result 645 k/mm3 (150-375); Red Blood Count 4.36 M/mm3 (4.6-6.20); White Blood Count 9.1 K/mm3 (4.5-10.0)
[2025-03-26 06:43] LABS: Albumin Level 3.3 g/dL (3.5-5.1); Anion Gap 6 mmol/L (4-12); Blood Urea Nitrogen 11 mg/dL (9-20); CRP 3.3 mg/dL (<1.0); Calcium 8.9 mg/dL (8.4-10.2); Carbon Dioxide 29 mmol/L (22-30); Chloride 100 mmol/L (98-107); Estimated CRCL calculation 152 ml/min; Estimated Glomerular Filt Rate > 60; Glucose 118 mg/dL (65-110); Magnesium 2.1 mg/dL (1.6-2.3); Potassium 4.2 mmol/L (3.4-5.0); Sodium 135 mmol/L (137-145)
[2025-03-26] MEDS: LIDOCAINE 5% PATCH 2 PATCH TRANSDERM (09:16)
[2025-03-26] MEDS: EUCERIN CREAM 120 GM JAR 1 APPLIC TOPICAL ×2 (09:18→17:01)
[2025-03-26] MEDS: oxyCODONE HCL (*CRX) 2.5 MG TAB IR PO (09:34)
[2025-03-26] MEDS: ASPIRIN 81 MG ENTERIC TABLET PO (09:36)
[2025-03-26] MEDS: PANTOPRAZOLE 40 MG TABLET PO (09:36)
[2025-03-26] MEDS: APIXABAN 5 MG TABLET PO ×2 (09:36→22:10)
[2025-03-26] MEDS: ATORVASTATIN 10 MG TABLET PO (09:36)
[2025-03-26] MEDS: FUROSEMIDE 20 MG TABLET PO (09:37)
--- NOTE | 2025-03-26 10:26 | PCNFU ---
Nutrition Follow-Up Complete: Inadequate protein intake related to increased protein energy needs for skin, as evidenced by mild muscle wasting and medication induced weight loss of 60 lb, 18%/6 months Goal:Intakes >75% Pt meeting goal, continue with same goal Pt current nutrition is Diabetic, Glucerna shakes BID. Nutrition recommendation: continue with current plan of care Last recorded weight is 124.6 kg. Bowel Motility: +BM 03/24 Labs Reviewed: Hgb:10.1, HCt:33.9, Alb:3.3, NA:135, Cr:0.54, Glu:118 Meds Noted: lasix, protonix, eliquis, KCL Skin: cellulitis Additional Notes: Pt continues on a diabetic diet, intake 50-100%, Glucerna shakes in place BID. Agree with orders, Encourage intake. Monitoring intakes, weights, labs, skin, supplement tolerance, plan of care Follow up in 7 days
--- NOTE | 2025-03-26 10:49 | WNDPHOTO ---
PHOTO ONLY - See Nursing Notes and/ or assessments for documentation.
--- NOTE | 2025-03-26 11:44 | P.PNIM_ITS ---
Progress Note: A&P Assessment and Plan (1) Septicemia: Code(s): A41.9 - Sepsis, unspecified organism Status: Acute Assessment and Plan: Patient presented to the ED with complaints of fall at home and worsening weakness and noted to have LLE draining wound, possibly cellulitis. He was started on Vancomycin, Cefepime and Flagyl. WCx: Morganella sensitive to bactrim, cipro, zosyn. BCx (03/13) MSSA BCx (03/15) MSSA one aerobic bottle only TTE 03/17 showing no vegetations. Abx changed to Cefazolin/Bactrim PO on 03/17/25. Bactrim stopped 03/22 BCx (03/21) NGTD Source is from acute L1-L2 diskitis/osteomyelitis with paraspinal/possible epidural extension and possibly cellulitis ID following Follow blood cultures from 03/21. Continue Cefazolin ANTIONE cancelled for today and rescheduled for tomorrow. NPO after MN. (2) Septic discitis of lumbar region: Code(s): M46.46 - Discitis, unspecified, lumbar region Status: Acute Assessment and Plan: Patient has been having increasing back pain since October. Lumbar spine CT 03/20 showing an aggressive process at the L1-2 interspace likely involving discitis, osteomyelitis of both vertebral bodies, and paraspinal phlegmon/developing abscess with possible epidural involvement as well. Lumbar MRI 03/20 showing evidence of acute discitis at L1-2 level with osteomyelitis involving L1 and L2 vertebral bodies, para-vertebral inflammatory changes with microabscesses on both sides and significant narrowing of the thecal sac at L1-2 level Neurosurgery consulted and appreciate their help. Recommendations felt condition to be non-surgical Pain control Antibiotic as per ID PT/OT as tolerated. Placement being arranged. May need to change to an abx with daily or Q12HR schedule (or use continuous infusion with bulb) (3) Paraspinal abscess: Code(s): M46.20 - Osteomyelitis of vertebra, site unspecified Status: Acute Assessment and Plan: As above (4) Osteomyelitis of lumbar vertebra: Code(s): M46.26 - Osteomyelitis of vertebra, lumbar region Status: Acute Assessment and Plan: As above (5) Ventricular tachycardia seen on patient monitor: Code(s): I47.20 - Ventricular tachycardia, unspecified Status: Acute Assessment and Plan: Nonsustained ventricular tachycardia noted on tele. Cardiology consulted and appreciate their help Abnormal stress test in January showing a small region of mild reversible ischemia at the apical anterior, apical lateral and basilar inferolateral segments. Continue with aspirin, Coreg, Lipitor Further ischemic eval depending on symptoms and monitor results as outpatient once bacteremia clears(can be done as an outpatient) Plan to discharge on event monitor for 30 days Outpatient follow-up with Cardiology in 2-4 weeks upon discharge (6) Generalized weakness: Code(s): R53.1 - Weakness Status: Acute Assessment and Plan: Related to above PT/OT (7) Type 2 diabetes mellitus without complications: Code(s): E11.9 - Type 2 diabetes mellitus without complications Status: Acute Assessment and Plan: A1c 6.4% in January. The patient's blood glucose was reviewed on 03/26 Glucose remains well controlled. Continue AccuCheks covering with sliding scale. Hypoglycemia protocol available as needed. Continue to follow (8) Essential (primary) hypertension: Code(s): I10 - Essential (primary) hypertension Status: Acute Assessment and Plan: Patient's blood pressure was reviewed on 03/26 Blood pressure remains well controlled. Will continue to monitor (9) Stasis dermatitis: Code(s): I87.2 - Venous insufficiency (chronic) (peripheral) Status: Acute Assessment and Plan: Chronic venous insufficiency with stasis dermatitis LLE>RLE Possible cellulitis on admission given the resolution of the erythema. Wound care following. Continue Eucerin cream for skin care Plan Code status: Full DVT prophylaxis: Eliquis Disposition: [facility]. Subjective Date/time seen: 03/26/25 11:44 Interval history: 69yo male with DM, HTN, HLD, PVD, PEs, venous stasis bilateral lower extremities and chronic wounds bilateral who presented to the emergency department with complaints of fall at home and worsening weakness. Slept okay. No back pain at rest. Minimal pain when up walking in the room. ANTIONE was cancelled for today. Exam Narrative: AF 98.2 118/64 79 17 93% ra Gen - NARD Chest -lungs clear to auscultation bilaterally. CV - RRR S1/S2. Tele showing no significant dysrhythmias Abd - Soft, NT/ND, Positive BS Ext -no pedal edema. Neuro - Alert and appropriate Psych - Nml mood and affect Skin - chronic venous stasis skin changes bilateral shins L>R. Improvement of the dried, peeling scale. No residual LE erythema. Objective Data Vital Signs Vital Signs: Vital Signs - 24 hr 03/25/25 12:00 03/25/25 13:55 03/25/25 16:00 Temperature 96.2 F L Pulse Rate 74 70 73 Respiratory Rate 16 Blood Pressure 115/58 L Pulse Oximetry 97 03/25/25 20:01 03/25/25 22:00 03/26/25 00:00 Temperature 97.0 F L Pulse Rate 72 76 67 Respiratory Rate 18 Blood Pressure 115/68 Pulse Oximetry 97 03/26/25 04:00 03/26/25 06:00 03/26/25 08:00 Temperature 98.2 F Pulse Rate 67 77 77 Respiratory Rate 17 Blood Pressure 118/64 Pulse Oximetry 93 03/26/25 09:36 Temperature Pulse Rate 79 Respiratory Rate Blood Pressure Pulse Oximetry Intake/Output Intake/Output: Intake & Output 03/23/25 03/24/25 03/25/25 03/26/25 23:59 23:59 23:59 23:59 Intake Total 1370 1406 1116 Output Total 1900 1000 1100 1075 Balance -530 406 16 -1075 Meds/Results Medications: Active Medications Generic Name Dose Route Start Last Admin Trade Name Paulq PRN Reason Stop Dose Admin Acetaminophen 1,000 mg 03/14/25 13:30 03/26/25 05:44 Acetaminophen 500 Mg Tablet PO Not Given Q6HR EJ Apixaban 5 mg 03/13/25 21:00 03/26/25 09:36 Apixaban 5 Mg Tablet PO 5 mg Q12HR EJ Administration Aspirin 81 mg 03/20/25 09:00 03/26/25 09:36 Aspirin 81 Mg Enteric Tablet PO 81 mg QAM EJ Administration Atorvastatin Calcium 10 mg 03/13/25 09:00 03/26/25 09:36 Atorvastatin 10 Mg Tablet PO 10 mg DAILY EJ Administration Carvedilol 6.25 mg 03/19/25 21:00 03/26/25 09:36 Carvedilol 6.25 Mg Tablet PO 6.25 mg Q12HR EJ Administration Cyclobenzaprine HCl 10 mg 03/19/25 16:55 03/23/25 15:32 Cyclobenzaprine Hcl 10 Mg Tablet PO 10 mg Q8H PRN Administration Muscle Spasm Dextrose 12.5 gm 03/13/25 08:49 Dextrose 50% 25 Gm/50 Ml Syringe IV PUSH PRN PRN Hypoglycemia Protocol Furosemide 20 mg 03/13/25 09:00 03/26/25 09:37 Furosemide 20 Mg Tablet PO 20 mg QAM EJ Administration Glucagon 1 mg 03/13/25 08:49 Glucagon For Inj 1 Mg Vial IM PRN PRN Hypoglycemia Protocol Glucose 15 gm 03/13/25 08:49 03/14/25 21:01 Glucose Oral Gel 15 Gm Of Glucse In 37.5 Gm Tube PO 15 gm PRN PRN Administration Hypoglycemia Protocol Dextrose 1,000 mls @ 100 mls/hr 03/13/25 08:49 Dextrose 5% 1,000 Ml IVPB PRN PRN Hypoglycemia Protocol Cefazolin Sodium 1 gm/ Sodium 50 mls @ 100 mls/hr 03/17/25 14:00 03/26/25 05:43 Chloride IVPB 100 mls/hr Q8HR EJ Administration Insulin Aspart 2 - 5 units 03/13/25 12:00 03/26/25 11:33 Insulin Aspart (*Bkc) 100 Units/Ml SUB-Q Not Given TIDWM [facility] Protocol Lidocaine 2 patch 03/14/25 09:00 03/26/25 09:16 Lidocaine 5% Patch TRANSDERM 2 patch DAILY EJ Administration Lisinopril 20 mg 03/13/25 21:00 03/25/25 20:51 Lisinopril 20 Mg Tablet PO 20 mg HS EJ Administration Miscellaneous Information 1 each 03/23/25 00:01 Please Renew Oxycodone. Per [employer] Procedure, It Will Discontinue If Not Renewed. XX 04/22/25 00:00 CLARIFY EJ Multi-Ingred Cream/Lotion/Oil/Oint 1 applic 03/24/25 17:00 03/26/25 09:18 Eucerin Cream 120 Gm Jar TOPICAL 1 applic BID EJ Administration Ondansetron HCl 4 mg 03/13/25 08:49 Ondansetron Inj 4 Mg/2 Ml Vial IV PUSH Q6H PRN Nausea And Vomiting Oxycodone HCl 5 mg 03/14/25 13:14 03/25/25 11:02 Oxycodone Hcl (*Crx) 5 Mg Tab Ir PO 5 mg Q4H PRN Administration Pain Rated 6 or Greater Oxycodone HCl 2.5 mg 03/24/25 07:57 03/26/25 09:34 Oxycodone Hcl (*Crx) 2.5 Mg Tab Ir PO 2.5 mg Q4H PRN Administration Pain Rated 5 or Less Pantoprazole Sodium 40 mg 03/13/25 08:00 03/26/25 09:36 Pantoprazole 40 Mg Tablet PO 40 mg DAILY@0800 EJ Administration Polyethylene Glycol 17 gm 03/23/25 19:35 03/26/25 09:37 Polyethylene Glycol 3350 17 Gm Powd.Pack PO 17 gm QAM EJ Administration Radiology Results: ITS Impressions Elbow X-Ray 03/13/25 07:04 Impression: 1: No acute bone or joint abnormality. Chest X-Ray 03/13/25 07:05 IMPRESSION: 1: NO ACUTE CARDIOPULMONARY DISEASE. Tibia/Fibula X-Ray 03/13/25 07:06 Impression: 1: Mild-moderate polyarticular osteoarthritis. Lumbar Spine X-Ray 03/14/25 18:51 IMPRESSION: Normal lumbar spine. Ankle Brachial Index 03/19/25 14:34 IMPRESSION: 1. No significant arterial occlusive disease to either lower limb with normal bilateral TBIs. Lumbar Spine CT 03/20/25 08:45 IMPRESSION: Aggressive process at the L1-2 interspace likely involving discitis, os teomyelitis of both vertebral bodies, and paraspinal phlegmon/developing abscess with possible epidural involvement as well. Correlation with contrast-enhanced lumbar spine MRI suggested. Skull X-Ray 03/20/25 14:40 Impression: No acute fracture or malalignment. Lumbar Spine MRI 03/20/25 18:05 IMPRESSION: 1. Evidence of acute discitis at L1-2 level with osteomyelitis involving L1 and L2 vertebral bodies.Para Vertebral inflammatory changes with microabscesses on both sides. 2. Significant narrowing of the thecal sac at L1-2 level as described above. 3. Findings at other disc levels are described above in detail. Labs Labs: Laboratory Results - last 24 hr 03/25/25 03/25/25 03/26/25 16:15 19:48 05:39 WBC 9.1 RBC 4.36 L Hgb 10.1 L Hct 33.9 L MCV 77.8 L MCH 23.2 L MCHC 29.8 L RDW 21.6 H Plt Count 645 H MPV 8.5 Sodium 135 L Potassium 4.2 Chloride 100 Carbon Dioxide 29 Anion Gap 6 BUN 11 Creatinine 0.54 L Estim Creat Clear Calc 152 Estimated GFR > 60 Glucose 118 H POC Capillary Glucose 113 H 143 H Calcium 8.9 Phosphorus 4.2 Magnesium 2.1 C-Reactive Protein 3.3 H Albumin 3.3 L 03/26/25 03/26/25 07:24 11:16 WBC RBC Hgb Hct MCV MCH MCHC RDW Plt Count MPV Sodium Potassium Chloride Carbon Dioxide Anion Gap BUN Creatinine Estim Creat Clear Calc Estimated GFR Glucose POC Capillary Glucose 135 H 165 H Calcium Phosphorus Magnesium C-Reactive Protein Albumin
[2025-03-26] MEDS: ACETAMINOPHEN 500 MG TABLET 1000 MG PO ×2 (12:07→17:00)
[2025-03-26] MEDS: oxyCODONE HCL (*CRX) 5 MG TAB IR PO (12:09)
[2025-03-26] MEDS: CYCLOBENZAPRINE HCL 10 MG TABLET PO (13:18)
[2025-03-26] MEDS: INSULIN ASPART (*BKC) 100 UNITS/ML SUB-Q (16:26)
--- NOTE | 2025-03-26 19:49 | P.PNINF_ITS ---
Progress Note: A&P Assessment and Plan (1) Septic discitis of lumbar region: Code(s): M46.46 - Discitis, unspecified, lumbar region Status: Acute Assessment and Plan: See below (2) Osteomyelitis of lumbar vertebra: Code(s): M46.26 - Osteomyelitis of vertebra, lumbar region Status: Acute Assessment and Plan: See below (3) Paraspinal abscess: Code(s): M46.20 - Osteomyelitis of vertebra, site unspecified Status: Acute Assessment and Plan: See below (4) Epidural abscess: Code(s): G06.2 - Extradural and subdural abscess, unspecified Status: Acute Assessment and Plan: See below Plan ASSESSMENT: 1. MSSA septicemia --03/13/25 blood cultures: MSSA x 2 sets --03/15/25 blood cultures: MSSA x 1 of 2 sets --03/21/25 blood cultures: NGTD --Lumbar spinal infection vs. endocarditis vs. other --No TTE findings to suggest endocarditis (03/17/25) 2. Acute L1/2 discitis/osteomyelitis with paraspinal and possible epidural extension --Suspect this is source of MSSA septicemia 3. Accelerating lumbar back pain since October 2024 --CT LS spine with L1/2 discitis/osteomyelitis with paraspinal and possible epidural extension 4. Proteus mirabilis LLE wound infection with cellulitis--?morganella also? 5. Chronic venous insufficiency with stasis dermatitis LLE>RLE 6. Mild leukocytosis--resolved 7. Non-sustained ventricular tachycardia (management as per Cardiology) 78. Tinnitus s/p cochlear implant/device surgery (more than 40 years ago) PLAN: -ANTIONE -continue to monitor blood cxs -Appreciate Neurosurgery consultation -Continue local wound care -given the epidural phelgmon, would switch to cefepime 2 grams IV Q8 hrs x 6 weeks at least. Meropenem is another option but this drug is also Q8 hrs -will need to f/u in ID clinic d/w case mgmt Pt was seen via video telehealth consultation with the assistance of staff. Chart, data and patient info reviewed. Patient was located at [facility] while I was in my [place] office. Pt gave consent. Subjective Date/time seen: 03/26/25 19:49 Interval history: No fever No leukocytosis Pain in lower back and right thigh Exam Narrative: NAD, on room air, non-toxic difficulty with right hip flexion Objective Data Vital Signs Vital Signs: Vital Signs - 24 hr 03/25/25 20:01 03/25/25 22:00 03/26/25 00:00 Temperature 97.0 F L Pulse Rate 72 76 67 Respiratory Rate 18 Blood Pressure 115/68 Pulse Oximetry 97 03/26/25 04:00 03/26/25 06:00 03/26/25 08:00 Temperature 98.2 F Pulse Rate 67 77 77 Respiratory Rate 17 Blood Pressure 118/64 Pulse Oximetry 93 03/26/25 09:36 03/26/25 12:00 03/26/25 13:21 Temperature 97.7 F Pulse Rate 79 81 75 Respiratory Rate 15 Blood Pressure 103/53 L Pulse Oximetry 94 03/26/25 16:00 Temperature Pulse Rate 84 Respiratory Rate Blood Pressure Pulse Oximetry Intake/Output Intake/Output: Intake & Output 03/23/25 03/24/25 03/25/25 03/26/25 23:59 23:59 23:59 23:59 Intake Total 1370 1406 1116 790 Output Total 1900 1000 1100 1075 Balance -530 406 16 -285 Meds/Results Medications: Active Medications Generic Name Dose Route Start Last Admin Trade Name Freq PRN Reason Stop Dose Admin Acetaminophen 1,000 mg 03/14/25 13:30 03/26/25 17:00 Acetaminophen 500 Mg Tablet PO 1,000 mg Q6HR EJ Administration Apixaban 5 mg 03/13/25 21:00 03/26/25 09:36 Apixaban 5 Mg Tablet PO 5 mg Q12HR EJ Administration Aspirin 81 mg 03/20/25 09:00 03/26/25 09:36 Aspirin 81 Mg Enteric Tablet PO 81 mg QAM EJ Administration Atorvastatin Calcium 10 mg 03/13/25 09:00 03/26/25 09:36 Atorvastatin 10 Mg Tablet PO 10 mg DAILY EJ Administration Carvedilol 6.25 mg 03/19/25 21:00 03/26/25 09:36 Carvedilol 6.25 Mg Tablet PO 6.25 mg Q12HR EJ Administration Cyclobenzaprine HCl 10 mg 03/19/25 16:55 03/26/25 13:18 Cyclobenzaprine Hcl 10 Mg Tablet PO 10 mg Q8H PRN Administration Muscle Spasm Dextrose 12.5 gm 11/11/25 08:49 Dextrose 50% 25 Gm/50 Ml Syringe IV PUSH PRN PRN Hypoglycemia Protocol Furosemide 20 mg 03/13/25 09:00 03/26/25 09:37 Furosemide 20 Mg Tablet PO 20 mg QAM EJ Administration Glucagon 1 mg 03/13/25 08:49 Glucagon For Inj 1 Mg Vial IM PRN PRN Hypoglycemia Protocol Glucose 15 gm 03/13/25 08:49 03/14/25 21:01 Glucose Oral Gel 15 Gm Of Glucse In 37.5 Gm Tube PO 15 gm PRN PRN Administration Hypoglycemia Protocol Dextrose 1,000 mls @ 100 mls/hr 03/13/25 08:49 Dextrose 5% 1,000 Ml IVPB PRN PRN Hypoglycemia Protocol Cefazolin Sodium 1 gm/ Sodium 50 mls @ 100 mls/hr 03/17/25 14:00 03/26/25 13:45 Chloride IVPB Infused Q8HR EJ Infusion Insulin Aspart 2 - 5 units 03/13/25 12:00 03/26/25 16:26 Insulin Aspart (*Bkc) 100 Units/Ml SUB-Q 2 units TIDWM EJ Administration Protocol Lidocaine 2 patch 03/14/25 09:00 03/26/25 09:16 Lidocaine 5% Patch TRANSDERM 2 patch DAILY EJ Administration Lisinopril 20 mg 03/13/25 21:00 03/25/25 20:51 Lisinopril 20 Mg Tablet PO 20 mg HS EJ Administration Miscellaneous Information 1 each 03/23/25 00:01 Please Renew Oxycodone. Per [employer] Procedure, It Will Discontinue If Not Ronn ewed. XX 04/22/25 00:00 CLARIFY EJ Multi-Ingred Cream/Lotion/Oil/Oint 1 applic 03/24/25 17:00 03/26/25 17:01 Eucerin Cream 120 Gm Jar TOPICAL 1 applic BID EJ Administration Ondansetron HCl 4 mg 03/13/25 08:49 Ondansetron Inj 4 Mg/2 Ml Vial IV PUSH Q6H PRN Nausea And Vomiting Oxycodone HCl 5 mg 03/14/25 13:14 03/26/25 12:09 Oxycodone Hcl (*Crx) 5 Mg Tab Ir PO 5 mg Q4H PRN Administration Pain Rated 6 or Greater Oxycodone HCl 2.5 mg 03/24/25 07:57 03/26/25 09:34 Oxycodone Hcl (*Crx) 2.5 Mg Tab Ir PO 2.5 mg Q4H PRN Administration Pain Rated 5 or Less Pantoprazole Sodium 40 mg 03/13/25 08:00 03/26/25 09:36 Pantoprazole 40 Mg Tablet PO 40 mg DAILY@0800 [facility] Administration Polyethylene Glycol 17 gm 03/23/25 19:35 03/26/25 09:37 Polyethylene Glycol 3350 17 Gm Powd.Pack PO 17 gm QAM EJ Administration Radiology Results: ITS Impressions Elbow X-Ray 03/13/25 07:04 Impression: 1: No acute bone or joint abnormality. Chest X-Ray 03/13/25 07:05 IMPRESSION: 1: NO ACUTE CARDIOPULMONARY DISEASE. Tibia/Fibula X-Ray 03/13/25 07:06 Impression: 1: Mild-moderate polyarticular osteoarthritis. Lumbar Spine X-Ray 03/14/25 18:51 IMPRESSION: Normal lumbar spine. Ankle Brachial Index 03/19/25 14:34 IMPRESSION: 1. No significant arterial occlusive disease to either lower limb with normal bilateral TBIs. Lumbar Spine CT 03/20/25 08:45 IMPRESSION: Aggressive process at the L1-2 interspace likely involving discitis, osteomy elitis of both vertebral bodies, and paraspinal phlegmon/developing abscess with possible epidural involvement as well. Correlation with contrast-enhanced lumbar spine MRI suggested. Skull X-Ray 03/20/25 14:40 Impression: No acute fracture or malalignment. Lumbar Spine MRI 03/20/25 18:05 IMPRESSION: 1. Evidence of acute discitis at L1-2 level with osteomyelitis involving L1 and L2 vertebral bodies.Para Vertebral inflammatory changes with microabscesses on both sides. 2. Significant narrowing of the thecal sac at L1-2 level as described above. 3. Findings at other disc levels are described above in detail. Labs Labs: Laboratory Results - last 24 hr 03/25/25 03/26/25 03/26/25 19:48 05:39 07:24 WBC 9.1 RBC 4.36 L Hgb 10.1 L Hct 33.9 L MCV 77.8 L MCH 23.2 L MCHC 29.8 L RDW 21.6 H Plt Count 645 H MPV 8.5 Sodium 135 L Potassium 4.2 Chloride 100 Carbon Dioxide 29 Anion Gap 6 BUN 11 Creatinine 0.54 L Estim Creat Clear Calc 152 Estimated GFR > 60 Glucose 118 H POC Capillary Glucose 143 H 135 H Calcium 8.9 Phosphorus 4.2 Magnesium 2.1 C-Reactive Protein 3.3 H Albumin 3.3 L 03/26/25 03/26/25 11:16 16:08 WBC RBC Hgb Hct MCV MCH MCHC RDW Plt Count MPV Sodium Potassium Chloride Carbon Dioxide Anion Gap BUN Creatinine Estim Creat Clear Calc Estimated GFR Glucose POC Capillary Glucose 165 H 216 H Calcium Phosphorus Magnesium C-Reactive Protein Albumin
[2025-03-26] MEDS: CEFEPIME 2 GM in SODIUM CHLORIDE 0.9% IV 50 ML 100 ML IVPB (22:10)
[2025-03-27] VITALS (10 sets, daily range): BP systolic 108–129; BP diastolic 60–63; PULSE 70–93; RESP 12–18; TEMP 36.2–36.4; O2SAT 95–100
[2025-03-27] MEDS: ACETAMINOPHEN 500 MG TABLET 1000 MG PO ×4 (00:12→17:24)
[2025-03-27] MEDS: CEFEPIME 2 GM in SODIUM CHLORIDE 0.9% IV 50 ML 100 ML IVPB ×3 (05:35→20:59)
[2025-03-27] MEDS: FUROSEMIDE 20 MG TABLET PO (09:26)
[2025-03-27] MEDS: PANTOPRAZOLE 40 MG TABLET PO (09:26)
[2025-03-27] MEDS: ASPIRIN 81 MG ENTERIC TABLET PO (09:26)
[2025-03-27] MEDS: ATORVASTATIN 10 MG TABLET PO (09:26)
[2025-03-27] MEDS: APIXABAN 5 MG TABLET PO ×2 (09:27→20:57)
[2025-03-27] MEDS: LIDOCAINE 5% PATCH 2 PATCH TRANSDERM (09:27)
[2025-03-27] MEDS: EUCERIN CREAM 120 GM JAR 1 APPLIC TOPICAL ×2 (09:31→17:24)
--- NOTE | 2025-03-27 10:06 | P.PNINF_ITS ---
Progress Note: A&P Assessment and Plan (1) Septic discitis of lumbar region: Code(s): M46.46 - Discitis, unspecified, lumbar region Status: Acute Assessment and Plan: See below (2) Osteomyelitis of lumbar vertebra: Code(s): M46.26 - Osteomyelitis of vertebra, lumbar region Status: Acute Assessment and Plan: See below (3) Paraspinal abscess: Code(s): M46.20 - Osteomyelitis of vertebra, site unspecified Status: Acute Assessment and Plan: See below (4) Epidural abscess: Code(s): G06.2 - Extradural and subdural abscess, unspecified Status: Acute Assessment and Plan: See below Plan ASSESSMENT: 1. MSSA septicemia --03/13/25 blood cultures: MSSA x 2 sets --03/15/25 blood cultures: MSSA x 1 of 2 sets --03/21/25 blood cultures: NGTD --Lumbar spinal infection vs. endocarditis vs. other --No TTE findings to suggest endocarditis (03/17/25) 2. Acute L1/2 discitis/osteomyelitis with paraspinal and possible epidural extension --Suspect this is source of MSSA septicemia 3. Accelerating lumbar back pain since October 2024 --CT LS spine with L1/2 discitis/osteomyelitis with paraspinal and possible epidural extension 4. Proteus mirabilis LLE wound infection with cellulitis--?morganella also? 5. Chronic venous insufficiency with stasis dermatitis LLE>RLE 6. Mild leukocytosis--resolved 7. Non-sustained ventricular tachycardia (management as per Cardiology) 78. Tinnitus s/p cochlear implant/device surgery (more than 40 years ago) PLAN: -ANTIONE planned for tomorrow -check CT lumbar spine to assess for progression given significant back and bilateral leg pain -continue to monitor blood cxs -Appreciate Neurosurgery consultation -Continue local wound care -given the epidural phelgmon, continue cefepime 2 grams IV Q8 hrs x 6 weeks at least. Meropenem is another option but this drug is also Q8 hrs--final abx recommendations will depend on results of ANTIONE tomorrow -will need to f/u in ID clinic as a tele visit d/w nursing staff Pt was seen via video telehealth consultation with the assistance of staff. Chart, data and patient info reviewed. Patient was located at [facility] while I was in my [place] office. Pt gave consent. Subjective Date/time seen: 03/27/25 10:06 Interval history: no fever pain in lower back and legs no incontinence Exam Narrative: on room air Bilateral LEs with discoloration Objective Data Vital Signs Vital Signs: Vital Signs - 24 hr 03/26/25 12:00 03/26/25 13:21 03/26/25 16:00 Temperature 97.7 F Pulse Rate 81 75 84 Respiratory Rate 15 Blood Pressure 103/53 L Pulse Oximetry 94 Oxygen Delivery 03/26/25 20:00 03/26/25 20:00 03/26/25 22:00 Temperature 97.5 F L Pulse Rate 73 77 Respiratory Rate 18 Blood Pressure 115/64 Pulse Oximetry 97 Oxygen Delivery Room Air 03/26/25 22:10 03/27/25 00:00 03/27/25 04:00 Temperature Pulse Rate 77 78 76 Respiratory Rate Blood Pressure Pulse Oximetry Oxygen Delivery 03/27/25 05:39 03/27/25 09:26 Temperature 97.5 F L Pulse Rate 79 74 Respiratory Rate 18 Blood Pressure 129/61 Pulse Oximetry 100 Oxygen Delivery Intake/Output Intake/Output: Intake & Output 03/24/25 03/25/25 03/26/25 03/27/25 23:59 23:59 23:59 23:59 Intake Total 1406 1116 840 490 Output Total 1000 1100 1275 400 Balance 406 16 -435 90 Meds/Results Medications: Active Medications Generic Name Dose Route Start Last Admin Trade Name Freq PRN Reason Stop Dose Admin Acetaminophen 1,000 mg 03/14/25 13:30 03/27/25 05:36 Acetaminophen 500 Mg Tablet PO 1,000 mg Q6HR EJ Administration Apixaban 5 mg 03/13/25 21:00 03/27/25 09:27 Apixaban 5 Mg Tablet PO 5 mg Q12HR EJ Administration Aspirin 81 mg 03/20/25 09:00 03/27/25 09:26 Aspirin 81 Mg Enteric Tablet PO 81 mg QAM EJ Administration Atorvastatin Calcium 10 mg 03/13/25 09:00 03/27/25 09:26 Atorvastatin 10 Mg Tablet PO 10 mg DAILY EJ Administration Carvedilol 6.25 mg 03/19/25 21:00 03/27/25 09:26 Carvedilol 6.25 Mg Tablet PO 6.25 mg Q12HR EJ Administration Cyclobenzaprine HCl 10 mg 03/19/25 16:55 03/26/25 13:18 Cyclobenzaprine Hcl 10 Mg Tablet PO 10 mg Q8H PRN Administration Muscle Spasm Dextrose 12.5 gm 03/13/25 08:49 Dextrose 50% 25 Gm/50 Ml Syringe IV PUSH PRN PRN Hypoglycemia Protocol Furosemide 20 mg 03/13/25 09:00 03/27/25 09:26 Furosemide 20 Mg Tablet PO 20 mg QAM EJ Administration Glucagon 1 mg 03/13/25 08:49 Glucagon For Inj 1 Mg Vial IM PRN PRN Hypoglycemia Protocol Glucose 15 gm 03/13/25 08:49 03/14/25 21:01 Glucose Oral Gel 15 Gm Of Glucse In 37.5 Gm Tube PO 15 gm PRN PRN Administration Hypoglycemia Protocol Dextrose 1,000 mls @ 100 mls/hr 03/13/25 08:49 Dextrose 5% 1,000 Ml IVPB PRN PRN Hypoglycemia Protocol Cefepime HCl 2 gm/ Sodium 50 mls @ 100 mls/hr 03/26/25 22:00 03/27/25 06:05 Chloride IVPB Infused Q8H EJ Infusion Insulin Aspart 2 - 5 units 03/13/25 12:00 03/27/25 09:31 Insulin Aspart (*Bkc) 100 Units/Ml SUB-Q Not Given TIDWM [facility] Protocol Lidocaine 2 patch 03/14/25 09:00 03/27/25 09:27 Lidocaine 5% Patch TRANSDERM 2 patch DAILY EJ Administration Lisinopril 20 mg 03/13/25 21:00 03/26/25 22:09 Lisinopril 20 Mg Tablet PO 20 mg HS EJ Administration Miscellaneous Information 1 each 03/23/25 00:01 Please Renew Oxycodone. Per [employer] Procedure, It Will Discontinue If Not Renewed. XX 04/22/25 00:00 CLARIFY EJ Multi-Ingred Cream/Lotion/Oil/Oint 1 applic 03/24/25 17:00 03/27/25 09:31 Eucerin Cream 120 Gm Jar TOPICAL 1 applic BID EJ Administration Ondansetron HCl 4 mg 03/13/25 08:49 Ondansetron Inj 4 Mg/2 Ml Vial IV PUSH Q6H PRN Nausea And Vomiting Oxycodone HCl 5 mg 03/14/25 13:14 03/26/25 12:09 Oxycodone Hcl (*Crx) 5 Mg Tab Ir PO 5 mg Q4H PRN Administration Pain Rated 6 or Greater Oxycodone HCl 2.5 mg 03/24/25 07:57 03/26/25 09:34 Oxycodone Hcl (*Crx) 2.5 Mg Tab Ir PO 2.5 mg Q4H PRN Administration Pain Rated 5 or Less Pantoprazole Sodium 40 mg 03/13/25 08:00 03/27/25 09:26 Pantoprazole 40 Mg Tablet PO 40 mg DAILY@0800 [facility] Administration Polyethylene Glycol 17 gm 03/23/25 19:35 03/27/25 09:27 Polyethylene Glycol 3350 17 Gm Powd.Pack PO 17 gm QAM EJ Administration Radiology Results: ITS Impressions Elbow X-Ray 03/13/25 07:04 Impression: 1: No acute bone or joint abnormality. Chest X-Ray 03/13/25 07:05 IMPRESSION: 1: NO ACUTE CARDIOPULMONARY DISEASE. Tibia/Fibula X-Ray 03/13/25 07:06 Impression: 1: Mild-moderate polyarticular osteoarthritis. Lumbar Spine X-Ray 03/14/25 18:51 IMPRESSION: Normal lumbar spine. Ankle Brachial Index 03/19/25 14:34 IMPRESSION: 1. No significant arterial occlusive disease to either lower limb with normal bilateral TBIs. Lumbar Spine CT 03/20/25 08:45 IMPRESSION: Aggressive process at the L1-2 interspace likely involving discitis, osteomyelitis of both vertebral bodies, and paraspinal phlegmon/developing abscess with possible epidural involvement as well. Correlation with contrast- enhanced lumbar spine MRI suggested. Skull X-Ray 03/20/25 14:40 Impression: No acute fracture or malalignment. Lumbar Spine MRI 03/20/25 18:05 IMPRESSION: 1. Evidence of acute discitis at L1-2 level with osteomyelitis involving L1 and L2 vertebral bodies.Para Vertebral inflammatory changes with microabscesses on both sides. 2. Significant narrowing of the thecal sac at L1-2 level as described above. 3. Findings at other disc levels are described above in detail. Labs Labs: Laboratory Results - last 24 hr 03/26/25 03/26/25 03/26/25 11:16 16:08 22:08 POC Capillary Glucose 165 H 216 H 90 03/27/25 08:02 POC Capillary Glucose 115 H
--- NOTE | 2025-03-27 10:48 | P.PNIM_ITS ---
Progress Note: A&P Assessment and Plan (1) Septicemia: Code(s): A41.9 - Sepsis, unspecified organism Status: Acute Assessment and Plan: Patient presented to the ED with complaints of fall at home and worsening weakness and noted to have LLE draining wound, possibly cellulitis. He was started on Vancomycin, Cefepime and Flagyl. WCx: Morganella sensitive to bactrim, cipro, zosyn. BCx (03/13) MSSA BCx (03/15) MSSA one aerobic bottle only TTE 03/17 showing no vegetations. Abx changed to Cefazolin/Bactrim PO on 03/17/25. Bactrim stopped 03/22 BCx (03/21) negative Source is from acute L1-L2 diskitis/osteomyelitis with paraspinal/possible epidural extension and possibly cellulitis ID following Continue Cefazolin ANTIONE cancelled again today and rescheduled for tomorrow. NPO after MN. (2) Septic discitis of lumbar region: Code(s): M46.46 - Discitis, unspecified, lumbar region Status: Acute Assessment and Plan: Patient has been having increasing back pain since October. Lumbar spine CT 03/20 showing an aggressive process at the L1-2 interspace likely involving discitis, osteomyelitis of both vertebral bodies, and paraspinal phlegmon/developing abscess with possible epidural involvement as well. Lumbar MRI 03/20 showing evidence of acute discitis at L1-2 level with osteomyelitis involving L1 and L2 vertebral bodies, para-vertebral inflammatory changes with microabscesses on both sides and significant narrowing of the thecal sac at L1-2 level Repeat Lumbar spine CT 03/27 showing destructive process of discitis at L1-2 level with involvement of lower endplate of L1 and upper endplate of L2 vertebrae. Pathological fracture of upper endplate of L2 vertebra. These findings are more progressive compared with the CT findings on 03/20/2025. Also with narrowing of thecal sac at upper L2 level and paravertebral soft tissue inflammation at L1-L2 levels similar to prior study. Neurosurgery consulted and appreciate their help. Recommendations felt condition to be non-surgical but wthey will be called with updated imaging study. Pain control Antibiotic as per ID PT/OT as tolerated. Placement being arranged. 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 Cardiology consulted and appreciate their help Abnormal stress test in January showing a small region of mild reversible ischemia at the apical anterior, apical lateral and basilar inferolateral segments. Continue with aspirin, Coreg, Lipitor Further ischemic eval depending on symptoms and monitor results as outpatient once bacteremia clears (can be done as an outpatient) Plan to discharge on event monitor for 30 days Outpatient follow-up with Cardiology in 2-4 weeks upon discharge (6) Generalized weakness: Code(s): R53.1 - Weakness Status: Acute Assessment and Plan: Related to above PT/OT (7) Type 2 diabetes mellitus without complications: Code(s): E11.9 - Type 2 diabetes mellitus without complications Status: Acute Assessment and Plan: A1c 6.4% in January. The patient's blood glucose was reviewed on 03/27 Glucose remains mostly well controlled. Continue AccuCheks covering with sliding scale. Hypoglycemia protocol available as needed. Continue to follow (8) Essential (primary) hypertension: Code(s): I10 - Essential (primary) hypertension Status: Acute Assessment and Plan: Patient's blood pressure was reviewed on 03/27 Blood pressure remains well controlled. Will continue to monitor (9) Stasis dermatitis: Code(s): I87.2 - Venous insufficiency (chronic) (peripheral) Status: Acute Assessment and Plan: Chronic venous insufficiency with stasis dermatitis LLE>RLE Possible cellulitis on admission given the resolution of the erythema. Wound care following. Continue Eucerin cream for skin care (10) Pressure ulcer: Code(s): L89.90 - Pressure ulcer of unspecified site, unspecified stage Status: Acute Assessment and Plan: Pressure ulcer noted left buttock Wound care following Off loading Plan Code status: Full DVT prophylaxis: Eliquis Disposition: [facility]. Subjective Date/time seen: 03/27/25 10:48 Interval history: 69yo male with DM, HTN, HLD, PVD, PEs, venous stasis bilateral lower extremities and chronic wounds bilateral who presented to the emergency department with complaints of fall at home and worsening weakness. Slept okay. No CP or SOB. No n/v. ANTIONE cancelled again Exam Narrative: AF 97.5 129/61 74 18 100% ra Gen - NARD Chest -lungs clear to auscultation bilaterally. CV - RRR S1/S2. Tele showing PVCs Abd - Soft, NT/ND, Positive BS Ext -no pedal edema. Neuro - Alert and appropriate Psych - Nml mood and affect Skin - chronic venous stasis skin changes bilateral shins L>R. Scant amount of residual scale. No residual LE erythema. Palm sized shallow abrasion/ulcer medial left buttock with good granulation tissue Objective Data Vital Signs Vital Signs: Vital Signs - 24 hr 03/26/25 12:00 03/26/25 13:21 03/26/25 16:00 Temperature 97.7 F Pulse Rate 81 75 84 Respiratory Rate 15 Blood Pressure 103/53 L Pulse Oximetry 94 Oxygen Delivery 03/26/25 20:00 03/26/25 20:00 03/26/25 22:00 Temperature 97.5 F L Pulse Rate 73 77 Respiratory Rate 18 Blood Pressure 115/64 Pulse Oximetry 97 Oxygen Delivery Room Air 03/26/25 22:10 03/27/25 00:00 03/27/25 04:00 Temperature Pulse Rate 77 78 76 Respiratory Rate Blood Pressure Pulse Oximetry Oxygen Delivery 03/27/25 05:39 03/27/25 08:00 03/27/25 08:00 Temperature 97.5 F L Pulse Rate 79 71 Respiratory Rate 18 Blood Pressure 129/61 Pulse Oximetry 100 Oxygen Delivery Room Air 03/27/25 09:26 Temperature Pulse Rate 74 Respiratory Rate Blood Pressure Pulse Oximetry Oxygen Delivery Intake/Output Intake/Output: Intake & Output 03/24/25 03/25/25 03/26/25 03/27/25 23:59 23:59 23:59 23:59 Intake Total 1406 1116 840 490 Output Total 1000 1100 1275 400 Balance 406 16 435 90 Meds/Results Medications: Active Medications Generic Name Dose Route Start Last Admin Trade Name Freq PRN Reason Stop Dose Admin Acetaminophen 1,000 mg 03/14/25 13:30 03/27/25 05:36 Acetaminophen 500 Mg Tablet PO 1,000 mg Q6HR EJ Administration Apixaban 5 mg 03/13/25 21:00 03/27/25 09:27 Apixaban 5 Mg Tablet PO 5 mg Q12HR EJ Administration Aspirin 81 mg 03/20/25 09:00 03/27/25 09:26 Aspirin 81 Mg Enteric Tablet PO 81 mg QAM EJ Administration Atorvastatin Calcium 10 mg 03/13/25 09:00 03/27/25 09:26 Atorvastatin 10 Mg Tablet PO 10 mg DAILY EJ Administration Carvedilol 6.25 mg 03/19/25 21:00 03/27/25 09:26 Carvedilol 6.25 Mg Tablet PO 6.25 mg Q12HR EJ Administration Cyclobenzaprine HCl 10 mg 03/19/25 16:55 03/26/25 13:18 Cyclobenzaprine Hcl 10 Mg Tablet PO 10 mg Q8H PRN Administration Muscle Spasm Dextrose 12.5 gm 03/13/25 08:49 Dextrose 50% 25 Gm/50 Ml Syringe IV PUSH PRN PRN Hypoglycemia Protocol Furosemide 20 mg 03/13/25 09:00 03/27/25 09:26 Furosemide 20 Mg Tablet PO 20 mg QAM EJ Administration Glucagon 1 mg 03/13/25 08:49 Glucagon For Inj 1 Mg Vial IM PRN PRN Hypoglycemia Protocol Glucose 15 gm 03/13/25 08:49 03/14/25 21:01 Glucose Oral Gel 15 Gm Of Glucse In 37.5 Gm Tube PO 15 gm PRN PRN Administration Hypoglycemia Protocol Dextrose 1,000 mls @ 100 mls/hr 03/13/25 08:49 Dextrose 5% 1,000 Ml IVPB PRN PRN Hypoglycemia Protocol Cefepime HCl 2 gm/ Sodium 50 mls @ 100 mls/hr 03/26/25 22:00 03/27/25 06:05 Chloride IVPB Infused Q8H EJ Infusion Insulin Aspart 2 - 5 units 03/13/25 12:00 03/27/25 09:31 Insulin Aspart (*Bkc) 100 Units/Ml SUB-Q Not Given TIDWM [facility] Protocol Lidocaine 2 patch 03/14/25 09:00 03/27/25 09:27 Lidocaine 5% Patch TRANSDERM 2 patch DAILY EJ Administration Lisinopril 20 mg 03/13/25 21:00 03/26/25 22:09 Lisinopril 20 Mg Tablet PO 20 mg HS EJ Administration Miscellaneous Information 1 each 03/23/25 00:01 Please Renew Oxycodone. Per [employer] Procedure, It Will Discontinue If Not Renewed. XX 04/22/25 00:00 CLARIFY [facility] Multi-Ingred Cream/Lotion/Oil/Oint 1 applic 03/24/25 17:00 03/27/25 09:31 Eucerin Cream 120 Gm Jar TOPICAL 1 applic BID EJ Administration Ondansetron HCl 4 mg 03/13/25 08:49 Ondansetron Inj 4 Mg/2 Ml Vial IV PUSH Q6H PRN Nausea And Vomiting Oxycodone HCl 5 mg 03/14/25 13:14 03/26/25 12:09 Oxycodone Hcl (*Crx) 5 Mg Tab Ir PO 5 mg Q4H PRN Administration Pain Rated 6 or Greater Oxycodone HCl 2.5 mg 03/24/25 07:57 03/26/25 09:34 Oxycodone Hcl (*Crx) 2.5 Mg Tab Ir PO 2.5 mg Q4H PRN Administration Pain Rated 5 or Less Pantoprazole Sodium 40 mg 03/13/25 08:00 03/27/25 09:26 Pantoprazole 40 Mg Tablet PO 40 mg DAILY@0800 [facility] Administration Polyethylene Glycol 17 gm 03/23/25 19:35 03/27/25 09:27 Polyethylene Glycol 3350 17 Gm Powd.Pack PO 17 gm QAM [facility] Administration Radiology Results: ITS Impressions Elbow X-Ray 03/13/25 07:04 Impression: 1: No acute bone or joint abnormality. Chest X-Ray 03/13/25 07:05 IMPRESSION: 1: NO ACUTE CARDIOPULMONARY DISEASE. Tibia/Fibula X-Ray 03/13/25 07:06 Impression: 1: Mild-moderate polyarticular osteoarthritis. Lumbar Spine X-Ray 03/14/25 18:51 IMPRESSION: Normal lumbar spine. Ankle Brachial Index 03/19/25 14:34 IMPRESSION: 1. No significant arterial occlusive disease to either lower limb with normal bilateral TBIs. Lumbar Spine CT 03/20/25 08:45 IMPRESSION: Aggressive process at the L1-2 interspace likely involving discitis, osteomyelitis of both vertebral bodies, and paraspinal phlegmon/developing abscess with possible epidural involvement as well. Correlation with contrast- enhanced lumbar spine MRI suggested. Skull X-Ray 03/20/25 14:40 Impression: No acute fracture or malalignment. Lumbar Spine MRI 03/20/25 18:05 IMPRESSION: 1. Evidence of acute discitis at L1-2 level with osteomyelitis involving L1 and L2 vertebral bodies.Para Vertebral inflammatory changes with microabscesses on both sides. 2. Significant narrowing of the thecal sac at L1-2 level as described above. 3. Findings at other disc levels are described above in detail. Labs Labs: Laboratory Results - last 24 hr 03/26/25 03/26/25 03/26/25 11:16 16:08 22:08 POC Capillary Glucose 165 H 216 H 90 03/27/25 08:02 POC Capillary Glucose 115 H
[2025-03-27] MEDS: oxyCODONE HCL (*CRX) 2.5 MG TAB IR PO (11:07)
[2025-03-27] MEDS: INSULIN ASPART (*BKC) 100 UNITS/ML SUB-Q (12:32)
--- NOTE | 2025-03-27 13:23 | PCOTNOTE ---
Attempted to see pt for re-evaluation however pt declines due to being in too much pain. Pt is not yet able to have more pain meds per RN. Pt declines any attempt at movement to help improve pain as well stating he has already tried and nothing is helping.
[2025-03-27] MEDS: CYCLOBENZAPRINE HCL 10 MG TABLET PO (13:41)
[2025-03-27] MEDS: oxyCODONE HCL (*CRX) 5 MG TAB IR PO (14:59)
[2025-03-28] VITALS (14 sets, daily range): BP systolic 89–135; BP diastolic 51–84; PULSE 65–83; RESP 14–20; TEMP 36.3–36.7; O2SAT 92–97
--- NOTE | 2025-03-28 | ECHO_ITS ---
Patient Info Name: Bernabe Marx Age: 69 years : 1955 Gender: Male Ht: 72 in Wt: 274 lbs BSA: 2.56 m2 HR: 74 bpm BP: 92 / 61 mmHg Heart Rhythm: Sinus Rhythm Technical Quality: Good Exam Date: 03/28/2025 8:59 AM Patient Status: I Admit Date: 03/13/2025 Exam Type: CA echo transesophageal Complete two-dimensional, color flow and Doppler transesophageal study is performed. Staff Referring Physician: Cecy Carlton Power Line Installer: Nilo Nice III Attending Provider: Dinorah Bowles DO Summary 1. Normal left and right ventricular size and systolic function. 2. Normal appearing cardiac valves with a trivial amount of central aortic regurgitation. 3. No findings indicative of bacterial endocarditis. Left Ventricle Left ventricular septal wall motion is normal. Right Ventricle Right ventricular chamber dimension is normal. Left Atria Left atrial chamber dimension is normal. Right Atria Right atrial chamber dimension is normal. Aortic Valve The aortic valve is normal. There is trace aortic valve regurgitation. Pulmonic Valve The pulmonic valve is normal. Mitral Valve The mitral valve has normal leaflets. Tricuspid Valve The tricuspid valve leaflets are normal. Pericardium/Pleural The pericardium appears normal. Aorta The aortic root size at the sinus of Valsalva is normal. Report Signatures
[2025-03-28 05:10] LABS: Hematocrit 34.5 % (42.0-52.0); Hemoglobin 10.3 g/dL (14.0-18.0); Immature Granulocyte Percent A 0.6 % (0-0.5); Lymphocytes Absolute Auto 2.32 K/mm3 (0.9-3.2); Mean Corpuscular HGB Conc 29.9 g/dl (32-36); Mean Corpuscular Hemoglobin 23.1 pg (26-34); Mean Corpuscular Volume 77.4 fl (80-100); Nucleated Red Blood Cells Absolute Auto 0.000 K/mm3 (0.0-0.012); Nucleated Red Blood Cells Perc 0.0 % (0.0-0.2); Platelet Count Result 631 k/mm3 (150-375); Red Blood Count 4.46 M/mm3 (4.6-6.20); White Blood Count 10.2 K/mm3 (4.5-10.0)
[2025-03-28 05:29] LABS: Albumin Level 3.5 g/dL (3.5-5.1); Anion Gap 4 mmol/L (4-12); Blood Urea Nitrogen 14 mg/dL (9-20); CRP 3.0 mg/dL (<1.0); Calcium 9.2 mg/dL (8.4-10.2); Carbon Dioxide 28 mmol/L (22-30); Chloride 103 mmol/L (98-107); Estimated CRCL calculation 141 ml/min; Estimated Glomerular Filt Rate > 60; Glucose 115 mg/dL (65-110); Potassium 4.3 mmol/L (3.4-5.0); Sodium 135 mmol/L (137-145)
[2025-03-28 05:34] LABS: Hypochromasia 1+; Schistocytes None Seen
[2025-03-28] MEDS: CEFEPIME 2 GM in SODIUM CHLORIDE 0.9% IV 50 ML 100 ML IVPB ×3 (05:41→21:00)
[2025-03-28] MEDS: ASPIRIN 81 MG ENTERIC TABLET PO (08:12)
[2025-03-28] MEDS: PANTOPRAZOLE 40 MG TABLET PO (08:12)
[2025-03-28] MEDS: APIXABAN 5 MG TABLET PO ×2 (08:12→20:45)
[2025-03-28] MEDS: ATORVASTATIN 10 MG TABLET PO (08:12)
[2025-03-28] MEDS: LIDOCAINE 5% PATCH 2 PATCH TRANSDERM (08:15)
[2025-03-28] MEDS: EUCERIN CREAM 120 GM JAR 1 APPLIC TOPICAL ×2 (08:24→17:10)
--- NOTE | 2025-03-28 09:09 | P.SEDATION_ITS ---
Moderate Sedation Note-Pt Data Patient Data Diagnosis: Staphylococcal bacteremia Present Complaint: No complaints this morning Procedure to be performed/Plan: Transesophageal echocardiogram Allergies Allergy/AdvReac Type Severity Reaction Status Date / Time No Known Allergies Allergy Verified 02/12/25 13:07 Home Medications ?Medication ?Instructions ?Recorded ?Confirmed ?Type atorvastatin 10 mg tablet See Rx Instructions .Route 1 05/15/23 03/13/25 Rx .COMPLEX #90 tabs apixaban 5 mg tablet (Eliquis) 5 mg PO BID #180 tabs 0 10/30/24 03/13/25 Rx furosemide 20 mg tablet (Lasix) 20 mg PO QAM #90 tabs 01/04/25 03/13/25 Rx pantoprazole 40 mg tablet,delayed 40 mg PO QAM laryng opharyngeal 02/08/25 03/13/25 Rx release reflux #30 tabs glipizide 5 mg tablet, extended 5 mg PO DAILY #90 tabs 02/21/25 03/13/25 Rx release 24 hr lisinopril 20 mg tablet See Rx Instructions .Route 1 03/13/25 Rx .COMPLEX #90 tabs metformin 500 mg tablet,extended 1,000 mg PO BID 03/1303/13/25 History release 24 hr Current Medications: Active Medications Acetaminophen (Acetaminophen 500 Mg Tablet) 1,000 mg PO Q6HR PRN PRN Reason: Mild Pain (1-3) or Fever Apixaban (Apixaban 5 Mg Tablet) 5 mg PO Q12HR [facility] Last Admin: 03/28/25 08:12 Dose: 5 mg Aspirin (Aspirin 81 Mg Enteric Tablet) 81 mg PO QAM [facility] Last Admin: 03/28/25 08:12 Dose: 81 mg Atorvastatin Calcium (Atorvastatin 10 Mg Tablet) 10 mg PO DAILY [facility] Last Admin: 03/28/25 08:12 Dose: 10 mg Carvedilol (Carvedilol 6.25 Mg Tablet) 6.25 mg PO Q12HR [facility] Last Admin: 03/28/25 08:13 Dose: 6.25 mg Cyclobenzaprine HCl (Cyclobenzaprine Hcl 10 Mg Tablet) 10 mg PO Q8H PRN PRN Reason: Muscle Spasm Last Admin: 03/27/25 13:41 Dose: 10 mg Dextrose (Dextrose 50% 25 Gm/50 Ml Syringe) 12.5 gm IV PUSH PRN PRN; Protocol PRN Reason: Hypoglycemia Furosemide (Furosemide 20 Mg Tablet) 20 mg PO QAM [facility] Last Admin: 03/27/25 09:26 Dose: 20 mg Glucagon (Glucagon For Inj 1 Mg Vial) 1 mg IM PRN PRN; Protocol PRN Reason: Hypoglycemia Glucose (Glucose Oral Gel 15 Gm Of Glucse In 37.5 Gm Tube) 15 gm PO PRN PRN; Protocol PRN Reason: Hypoglycemia Last Admin: 03/14/25 21:01 Dose: 15 gm Dextrose (Dextrose 5% 1,000 Ml) 1,000 mls @ 100 mls/hr IVPB PRN PRN; Protocol PRN Reason: Hypoglycemia Cefepime HCl 2 gm/ Sodium (Chloride) 50 mls @ 100 mls/hr IVPB Q8H [facility] Last Admin: 03/28/25 05:41 Dose: 100 mls/hr Insulin Aspart (Insulin Aspart (*Bkc) 100 Units/Ml) 2 - 5 units SUB-Q TIDWM [facility]; Protocol Last Admin: 03/28/25 08:10 Dose: Not Given Lidocaine (Lidocaine 5% Patch) 2 patch TRANSDERM DAILY [facility] Last Admin: 03/28/25 08:15 Dose: 2 patch Lisinopril (Lisinopril 20 Mg Tablet) 20 mg PO HS [facility] Last Admin: 03/27/25 20:57 Dose: 20 mg Multi-Ingred Cream/Lotion/Oil/Oint (Eucerin Cream 120 Gm Jar) 1 applic TOPICAL BID [facility] Last Admin: 03/28/25 08:24 Dose: 1 applic Ondansetron HCl (Ondansetron Inj 4 Mg/2 Ml Vial) 4 mg IV PUSH Q6H PRN PRN Reason: Nausea And Vomiting Oxycodone HCl (Oxycodone Hcl (*Crx) 5 Mg Tab Ir) 5 mg PO Q4H PRN PRN Reason: Pain Rated 6 or Greater Last Admin: 03/27/25 14:59 Dose: 5 mg Oxycodone HCl (Oxycodone Hcl (*Crx) 2.5 Mg Tab Ir) 2.5 mg PO Q4H PRN PRN Reason: Pain Rated 5 or Less Last Admin: 03/27/25 11:07 Dose: 2.5 mg Pantoprazole Sodium (Pantoprazole 40 Mg Tablet) 40 mg PO DAILY@0800 [facility] Last Admin: 03/28/25 08:12 Dose: 40 mg Polyethylene Glycol (Polyethylene Glycol 3350 17 Gm Powd.Pack) 17 gm PO QAM [facility] Last Admin: 03/28/25 08:12 Dose: 17 gm Sedation/Anesthesia: No previous sedation/anesthesia problems (including family history). [facility] Past Medical History Medical History Rhinosinusitis Peripheral vascular disease Hx of adenomatous colonic polyps Hematuria MTHFR gene mutation Stasis dermatitis Personal history of pulmonary embolism Pure hypercholesterolemia, unspecified Essential (primary) hypertension Surgical History Surgical History Status post endovenous radiofrequency ablation (RFA) of saphenous vein Hx of cholecystectomy Hx of colonoscopy Family History Family History Mother Family history of malignant neoplasm multiple myeloma Father Family history of diabetes mellitus in first degree relative Family history of type 2 diabetes mellitus Skin cancer Social History Social History Social History: Smoking status: Never smoker Second hand tobacco smoke exposure: No Alcohol intake: never Substance use: never Substance use type: does not use Lack of Transportation: No Lack of Food: Never True Current Housing: I Have Housing Concerned About Future Housing: No Difficulty Paying Gas/Electric Bills: No Difficulty Paying for Meds: No Currently Unemployed: No Education: Decline to Answer Difficulty w/ Childcare or Family Care: No Living arrangements: with family Additional living arrangements comments: with sp Occupation/Education: occupation Gender identity (if verbalized by the patient): Male Sexual Orientation (if Verbalized by the Patient): Straight or Heterosexual Spiritual care concerns: No Mod Sed Physical Exam Physical Exam Pre Procedural Exam: Normal: Throat, Airway, Lungs, Heart Size, Heart Rate, Heart Rhythm, Neuro Exam (Responsive) and Extremities and Variation: Appearance (Ill-appearing white male older than his stated) Hours since solid foods: 12 Hours since liquid intake: 12 Mallampati Classification: class II Internal Medicine - PN: Obj Da Vital Signs Vital Signs: Vital Signs - 24 hr 03/27/25 09:26 03/27/25 12:00 03/27/25 14:00 Temperature 36.4 C Pulse Rate 74 93 75 Respiratory Rate 12 Blood Pressure 108/63 Pulse Oximetry 98 Oxygen Delivery 03/27/25 16:00 03/27/25 20:59 03/27/25 21:50 Temperature 36.2 C L Pulse Rate 70 73 73 Respiratory Rate 18 Blood Pressure 113/60 Pulse Oximetry 95 Oxygen Delivery 03/28/25 00:00 03/28/25 04:00 03/28/25 06:00 Temperature 36.6 C Pulse Rate 71 76 78 Respiratory Rate 18 Blood Pressure 122/61 Pulse Oximetry 95 Oxygen Delivery 03/28/25 08:49 Temperature Pulse Rate 83 Respiratory Rate 20 Blood Pressure 121/74 Pulse Oximetry 95 Oxygen Delivery Room Air Intake/Output Intake/Output: Intake & Output 03/25/25 03/26/25 03/27/25 03/28/25 23:59 23:59 23:59 23:59 Intake Total 5075 289 8468 250 Output Total 1100 1275 400 550 Balance 16 -435 700 -300 Meds/Results Medications: Active Medications Generic Name Dose Route Start Last Admin Trade Name Freq PRN Reason Stop Dose Admin Acetaminophen 1,000 mg 03/27/25 19:16 Acetaminophen 500 Mg Tablet PO Q6HR PRN Mild Pain (1-3) or Fever Apixaban 5 mg 03/13/25 21:00 03/28/25 08:12 Apixaban 5 Mg Tablet PO 5 mg Q12HR EJ Administration Aspirin 81 mg 03/20/25 09:00 03/28/25 08:12 Aspirin 81 Mg Enteric Tablet PO 81 mg QAM EJ Administration Atorvastatin Calcium 10 mg 03/13/25 09:00 03/28/25 08:12 Atorvastatin 10 Mg Tablet PO 10 mg DAILY EJ Administration Carvedilol 6.25 mg 03/19/25 21:00 03/28/25 08:13 Carvedilol 6.25 Mg Tablet PO 6.25 mg Q12HR JE Administration Cyclobenzaprine HCl 10 mg 03/19/25 16:55 03/27/25 13:41 Cyclobenzaprine Hcl 10 Mg Tablet PO 10 mg Q8H PRN Administration Muscle Spasm Dextrose 12.5 gm 03/13/25 08:49 Dextrose 50% 25 Gm/50 Ml Syringe IV PUSH PRN PRN Hypoglycemia Protocol Furosemide 20 mg 03/13/25 09:00 03/27/25 09:26 Furosemide 20 Mg Tablet PO 20 mg QAM EJ Administration Glucagon 1 mg 03/13/25 08:49 Glucagon For Inj 1 Mg Vial IM PRN PRN Hypoglycemia Protocol Glucose 15 gm 03/13/25 08:49 03/14/25 21:01 Glucose Oral Gel 15 Gm Of Glucse In 37.5 Gm Tube PO 15 gm PRN PRN Administration Hypoglycemia Protocol Dextrose 1,000 mls @ 100 mls/hr 03/13/25 08:49 Dextrose 5% 1,000 Ml IVPB PRN PRN Hypoglycemia Protocol Cefepime HCl 2 gm/ Sodium 50 mls @ 100 mls/hr 03/26/25 22:00 03/28/25 05:41 Chloride IVPB 100 mls/hr Q8H EJ Administration Insulin Aspart 2 - 5 units 03/13/25 12:00 03/28/25 08:10 Insulin Aspart (*Bkc) 100 Units/Ml SUB-Q Not Given TIDWM [facility] Protocol Lidocaine 2 patch 03/14/25 09:00 03/28/25 08:15 Lidocaine 5% Patch TRANSDERM 2 patch DAILY EJ Administration Lisinopril 20 mg 03/13/25 21:00 03/27/25 20:57 Lisinopril 20 Mg Tablet PO 20 mg HS EJ Administration Multi-Ingred Cream/Lotion/Oil/Oint 1 applic 03/24/25 17:00 03/28/25 08:24 Eucerin Cream 120 Gm Jar TOPICAL 1 applic BID EJ Administration Ondansetron HCl 4 mg 03/13/25 08:49 Ondansetron Inj 4 Mg/2 Ml Vial IV PUSH Q6H PRN Nausea And Vomiting Oxycodone HCl 5 mg 03/14/25 13:14 03/27/25 14:59 Oxycodone Hcl (*Crx) 5 Mg Tab Ir PO 5 mg Q4H PRN Administration Pain Rated 6 or Greater Oxycodone HCl 2.5 mg 03/24/25 07:57 03/27/25 11:07 Oxycodone Hcl (*Crx) 2.5 Mg Tab Ir PO 2.5 mg Q4H PRN Administration Pain Rated 5 or Less Pantoprazole Sodium 40 mg 03/13/25 08:00 03/28/25 08:12 Pantoprazole 40 Mg Tablet PO 40 mg DAILY@0800 EJ Administration Polyethylene Glycol 17 gm 03/23/25 19:35 03/28/25 08:12 Polyethylene Glycol 3350 17 Gm Powd.Pack PO 17 gm QAM EJ Administration Radiology Results: ITS Impressions Elbow X-Ray 03/13/25 07:04 Impression: 1: No acute bone or joint abnormality. Chest X-Ray 03/13/25 07:05 IMPRESSION: 1: NO ACUTE CARDIOPULMONARY DISEASE. Tibia/Fibula X-Ray 03/13/25 07:06 Impression: 1: Mild-moderate polyarticular osteoarthritis. Lumbar Spine X-Ray 03/14/25 18:51 IMPRESSION: Normal lumbar spine. Ankle Brachial Index 03/19/25 14:34 IMPRESSION: 1. No significant arterial occlusive disease to either lower limb with normal bilateral TBIs. Skull X-Ray 03/20/25 14:40 Impression: No acute fracture or malalignment. Lumbar Spine MRI 03/20/25 18:05 IMPRESSION: 1. Evidence of acute discitis at L1-2 level with osteomyelitis involving L1 and L2 vertebral bodies.Para Vertebral inflammatory changes with microabscesses on both sides. 2. Significant narrowing of the thecal sac at L1-2 level as described above. 3. Findings at other disc levels are described above in detail. Lumbar Spine CT 03/27/25 15:24 IMPRESSION: 1. Destructive process of discitis at L1-2 level is noted with involvement of lower endplate of L1 and upper endplate of L2 vertebrae. Pathological fracture of upper endplate of L2 vertebra. These findings are more progressive compared with the CT findings on 03/20/2025. 2. Narrowing of thecal sac at upper L2 level as described above. 3. Paravertebral soft tissue inflammation at L1-L2 levels similar to prior study. Labs 03/28/25 04:26 03/28/25 04:26 Labs: Laboratory Results - last 24 hr 03/27/25 03/27/25 03/28/25 11:46 16:44 04:26 WBC 10.2 H RBC 4.46 L Hgb 10.3 L Hct 34.5 L MCV 77.4 L MCH 23.1 L MCHC 29.9 L RDW 21.9 H Plt Count 631 H MPV 8.7 Immature Gran % (Auto) 0.6 H Neut % (Auto) 65.0 Lymph % (Auto) 22.7 [place] % (Auto) 7.8 Eos % (Auto) 3.0 Baso % (Auto) 0.9 Lymph # (Auto) 2.32 [place] # (Auto) 0.8 H Eos # (Auto) 0.3 Baso # (Auto) 0.1 Abs Immat Gran (auto) 0.06 H Absolute Neuts (auto) 6.7 Absolute Nucleated RBC 0.000 Band Neutrophils % Not Reportable Nucleated RBC % 0.0 Platelet Estimate Increased Hypochromasia 1+ Schistocytes None seen Sodium 135 L Potassium 4.3 Chloride 103 Carbon Dioxide 28 Anion Gap 4 BUN 14 Creatinine 0.59 L Estim Creat Clear Calc 141 Estimated GFR > 60 Glucose 115 H POC Capillary Glucose 229 H 134 H Calcium 9.2 Phosphorus 4.7 H C-Reactive Protein 3.0 H Albumin 3.5 03/28/25 07:39 WBC RBC Hgb Hct MCV MCH MCHC RDW Plt Count MPV Immature Gran % (Auto) Neut % (Auto) Lymph % (Auto) [place] % (Auto) Eos % (Auto) Baso % (Auto) Lymph # (Auto) [place] # (Auto) Eos # (Auto) Baso # (Auto) Abs Immat Gran (auto) Absolute Neuts (auto) Absolute Nucleated RBC Band Neutrophils % Nucleated RBC % Platelet Estimate Hypochromasia Schistocytes Sodium Potassium Chloride Carbon Dioxide Anion Gap BUN Creatinine Estim Creat Clear Calc Estimated GFR Glucose POC Capillary Glucose 145 H Calcium Phosphorus C-Reactive Protein Albumin ASA Classification/Sedation ASA Classification/Sedation ASA Class: III Emergent: No Risks: Risks, benefits and alternatives explained and patient/family accepted plan for sedation. Patient re-evaluated immediately prior to sedation.
[2025-03-28] MEDS: SODIUM CHLORIDE 0.9% IV 500 ML 100 ML (09:15)
[2025-03-28] MEDS: MIDAZOLAM HCL (*CRX) 2 MG/2 ML VIAL IV PUSH ×2 (09:16→09:20)
[2025-03-28] MEDS: fentaNYL CITRATE INJ (*CRX) 100 MCG/2 ML VIAL 50 MCG IV PUSH (09:16)
--- NOTE | 2025-03-28 09:27 | WPDCARDPROC ---
Cardiac Cath Procedure Note Date of procedure:: 03/28/25 Performing physician:: Edy Estrada MD Indication:: Staphylococcal bacteremia Brief clinical history:: This is a 69-year-old man admitted to the hospital with a lower extremity infectious lesion. He was found to have methicillin sensitive Staph in his blood and dima has been requested by Infectious Disease application support consultant. Transthoracic echo did not show any infectious vegetations. The patient does report a history of occasional solid food dysphagia which has not been evaluated by commercial account manager Procedure Procedure performed:: Transesophageal echo cardiac Sedation/Medication given:: Fentanyl 50 mg Versed 4 mg Case start time 9:15 a.m. Case end time 9:26 a.m. Sedation provided by Shilpi Diaz RN trained observer Estimated blood loss:: No blood loss Procedure note:: Patient was brought to the cardiac catheterization lab holding area in the postabsorptive state he was placed in the supine position. Or pharyngeal benzocaine was used and then a bite block was placed. He was then sedated with a combination of fentanyl and Versed in aliquots as described above. This provided excellent procedural sedation. The DIMA probe was placed into the hypopharynx and then easily advanced into the esophagus. Multiplane DIMA was performed and the probe was then removed. Procedure was well tolerated was uncomplicated. Findings:: Left atrium is normal in appearance and size no evidence of left atrial thrombus was seen. The mitral valve is anatomically normal there was no infectious vegetation identified. No MR is seen. The left ventricle is of normal dimension and contract well in all segments. The aortic valve is a trileaflet structure which is normal appearing, thin and pliable. No infectious vegetation is seen, no perivalvular abscess is seen. A trivial central jet of AI is noted. The tricuspid and pulmonic valves are unremarkable in appearance no regurgitant lesions are seen. Attempts to advance the probe through the gastroesophageal junction for transgastric views met some resistance at the GE junction and I dared therefore not attempt to obtain these views since the patient does report episodes solid food dysphagia Conclusion:: Transesophageal echocardiogram which was negative for any evidence of infectious endocarditis Edy Estrada MD [facility]
--- NOTE | 2025-03-28 13:07 | PCOTNOTE ---
Pt with new findings from MRI yesterday of progression of pathological fx at L2 with hospitalist noting that neurosurgery will need to be called with new findings. Per nursing, that has not occurred yet so will hold on therapy until neuro has seen pt again due to new MRI findings. RN aware and reconsulting neuro at this time.
[2025-03-28] MEDS: FUROSEMIDE 20 MG TABLET PO (14:41)
--- NOTE | 2025-03-28 14:54 | P.PNIM_ITS ---
Progress Note: A&P Assessment and Plan (1) Septicemia: Code(s): A41.9 - Sepsis, unspecified organism Status: Acute Assessment and Plan: Patient presented to the ED with complaints of fall at home and worsening weakness and noted to have LLE draining wound, possibly cellulitis. He was started on Vancomycin, Cefepime and Flagyl. WCx: Morganella sensitive to bactrim, cipro, zosyn. BCx (03/13) MSSA BCx (03/15) MSSA one aerobic bottle only TTE 03/17 showing no vegetations. Abx changed to Cefazolin/Bactrim PO on 03/17/25. Bactrim stopped 03/22 BCx (03/21) negative Source is from acute L1-L2 diskitis/osteomyelitis with paraspinal/possible epidural extension and possibly cellulitis ID following Continue Cefazolin ANTIONE negative for vegetation (2) Septic discitis of lumbar region: Code(s): M46.46 - Discitis, unspecified, lumbar region Status: Acute Assessment and Plan: Patient has been having increasing back pain since October. Lumbar spine CT 03/20 showing an aggressive process at the L1-2 interspace likely involving discitis, osteomyelitis of both vertebral bodies, and paraspinal phlegmon/developing abscess with possible epidural involvement as well. Lumbar MRI 03/20 showing evidence of acute discitis at L1-2 level with osteomyelitis involving L1 and L2 vertebral bodies, para-vertebral inflammatory changes with microabscesses on both sides and significant narrowing of the thecal sac at L1-2 level Repeat Lumbar spine CT 03/27 showing destructive process of discitis at L1-2 level with involvement of lower endplate of L1 and upper endplate of L2 vertebrae. Pathological fracture of upper endplate of L2 vertebra. These findings are more progressive compared with the CT findings on 03/20/2025. Also with narrowing of thecal sac at upper L2 level and paravertebral soft tissue inflammation at L1-L2 levels similar to prior study. Neurosurgery consulted and appreciate their help. Recommendations felt condition to be non-surgical but wthey will be called with updated imaging study. Pain control Antibiotic as per ID PT/OT as tolerated. Placement being arranged. (3) Paraspinal abscess: Code(s): M46.20 - Osteomyelitis of vertebra, site unspecified Status: Acute Assessment and Plan: As above (4) Osteomyelitis of lumbar vertebra: Code(s): M46.26 - Osteomyelitis of vertebra, lumbar region Status: Acute Assessment and Plan: As above (5) Ventricular tachycardia seen on shelter monitor: Code(s): I47.20 - Ventricular tachycardia, unspecified Status: Acute Assessment and Plan: Nonsustained ventricular tachycardia noted on tele. Cardiology consulted and appreciate their help Abnormal stress test in January showing a small region of mild reversible ischemia at the apical anterior, apical lateral and basilar inferolateral segments. Continue with aspirin, Coreg, Lipitor Further ischemic eval depending on symptoms and monitor results as outpatient once bacteremia clears (can be done as an outpatient) Plan to discharge on event monitor for 30 days Outpatient follow-up with Cardiology in 2-4 weeks upon discharge (6) Generalized weakness: Code(s): R53.1 - Weakness Status: Acute Assessment and Plan: Related to above PT/OT (7) Type 2 diabetes mellitus without complications: Code(s): E11.9 - Type 2 diabetes mellitus without complications Status: Acute Assessment and Plan: A1c 6.4% in January. The patient's blood glucose was reviewed on 03/27 Glucose remains mostly well controlled. Continue AccuCheks covering with sliding scale. Hypoglycemia protocol available as needed. Continue to follow (8) Essential (primary) hypertension: Code(s): I10 - Essential (primary) hypertension Status: Acute Assessment and Plan: Patient's blood pressure was reviewed on 03/27 Blood pressure remains well controlled. Will continue to monitor (9) Stasis dermatitis: Code(s): I87.2 - Venous insufficiency (chronic) (peripheral) Status: Acute Assessment and Plan: Chronic venous insufficiency with stasis dermatitis LLE>RLE Possible cellulitis on admission given the resolution of the erythema. Wound care following. Continue Eucerin cream for skin care (10) Pressure ulcer: Code(s): L89.90 - Pressure ulcer of unspecified site, unspecified stage Status: Acute Assessment and Plan: Pressure ulcer noted left buttock Wound care following Off loading Plan Code status: Full DVT prophylaxis: Eliquis Disposition: [facility]. Subjective Date/time seen: 03/28/25 14:54 Interval history: Patient was seen examined bedside. He is feeling fine except for back pain. Denies any chest pain, shortness chest of breath, nausea vomiting. Underwent ANTIONE today which was unremarkable Reviewed blood test WBC 10.2 CT of lumbar reviewed.more progressive compared with the CT findings on 03/20/2025.We will follow Neurosurgery recommendations. Follow ID recs. Continue with IV antibiotics Review of Systems Review of Systems: All systems reviewed & are unremarkable except as noted in HPI and below Exam Narrative: AF 97.5 129/61 74 18 100% ra Gen - NARD Chest -lungs clear to auscultation bilaterally. CV - RRR S1/S2. Tele showing PVCs Abd - Soft, NT/ND, Positive BS Ext -no pedal edema. Neuro - Alert and appropriate Psych - Nml mood and affect Skin - chronic venous stasis skin changes bilateral shins L>R. Scant amount of residual scale. No residual LE erythema. Palm sized shallow abrasion/ulcer medial left buttock with good granulation tissue Const: General: comfortable and no acute distress Other: Pleasant chronically ill gentleman, obese HENMT: Mouth: Yes moist mucous membranes Eyes: General: appearance normal, both eyes and all related structures Sclera: sclerae normal Pupils: Equal, round and reactive pupils present Neck: Neck: supple and no JVD Resp: Effort & Inspection: normal respiratory effort Auscultation: clear to auscultation bilaterally Cardio: Rate: tachycardic Rhythm: regular rhythm GI: Auscultation: normal bowel sounds Skin: General skin exam: dry skin, erythema (LLE ) and excoriation Other: Patient with significant excoriation to his abdominal area, dermatitis stasis, minimal drainage Neuro: Cranial nerves: Yes Equal, round and reactive pupils present Speech: normal speech Other: Unable to evaluate gait, pain with and movement to BLE Extrem: General: edema (RLE >LLE 2+) bilateral Other: BLE with erythema and edema (edema R>L), erythema outlined in marker. LLE with breakdown and healing wound with scan to mid swenson lateral aspect Psych: Mental Status: mental status grossly normal Affect: normal affect Objective Data Vital Signs Vital Signs: Vital Signs - 24 hr 03/27/25 16:00 03/27/25 20:59 03/27/25 21:50 Temperature 97.1 F L Pulse Rate 70 73 73 Respiratory Rate 18 Blood Pressure 113/60 Pulse Oximetry 95 Oxygen Delivery Oxygen Flow Rate 03/28/25 00:00 03/28/25 04:00 03/28/25 06:00 Temperature 97.8 F Pulse Rate 71 76 78 Respiratory Rate 18 Blood Pressure 122/61 Pulse Oximetry 95 Oxygen Delivery Oxygen Flow Rate 03/28/25 08:00 03/28/25 08:49 03/28/25 09:15 Temperature Pulse Rate 83 75 Respiratory Rate 20 16 Blood Pressure 121/74 135/69 Pulse Oximetry 95 97 Oxygen Delivery Room Air Room Air Nasal Cannula Oxygen Flow Rate 2 03/28/25 09:20 03/28/25 09:25 03/28/25 09:30 Temperature Pulse Rate 73 75 73 Respiratory Rate 17 20 16 Blood Pressure 115/84 119/62 89/60 L Pulse Oximetry 96 96 97 Oxygen Delivery Nasal Cannula Nasal Cannula Nasal Cannula Oxygen Flow Rate 2 2 2 03/28/25 09:45 03/28/25 10:00 03/28/25 10:15 Temperature Pulse Rate 75 74 73 Respiratory Rate 20 20 19 Blood Pressure 99/51 L 92/61 L 101/58 L Pulse Oximetry 94 93 92 Oxygen Delivery Room Air Room Air Room Air Oxygen Flow Rate Intake/Output Intake/Output: Intake & Output 03/25/25 03/26/25 03/27/25 03/28/25 23:59 23:59 23:59 23:59 Intake Total 2892 328 5067 300 Output Total 1100 1275 400 550 Balance 16 -671 700 -250 Meds/Results Medications: Active Medications Generic Name Dose Route Start Last Admin Trade Name Freq PRN Reason Stop Dose Admin Acetaminophen 1,000 mg 03/27/25 19:16 Acetaminophen 500 Mg Tablet PO Q6HR PRN Mild Pain (1-3) or Fever Apixaban 5 mg 03/13/25 21:00 03/28/25 08:12 Apixaban 5 Mg Tablet PO 5 mg Q12HR EJ Administration Aspirin 81 mg 03/20/25 09:00 03/28/25 08:12 Aspirin 81 Mg Enteric Tablet PO 81 mg QAM EJ Administration Atorvastatin Calcium 10 mg 03/13/25 09:00 03/28/25 08:12 Atorvastatin 10 Mg Tablet PO 10 mg DAILY EJ Administration Carvedilol 6.25 mg 03/19/25 21:00 03/28/25 08:13 Carvedilol 6.25 Mg Tablet PO 6.25 mg Q12HR EJ Administration Cyclobenzaprine HCl 10 mg 03/19/25 16:55 03/27/25 13:41 Cyclobenzaprine Hcl 10 Mg Tablet PO 10 mg Q8H PRN Administration Muscle Spasm Dextrose 12.5 gm 03/13/25 08:49 Dextrose 50% 25 Gm/50 Ml Syringe IV PUSH PRN PRN Hypoglycemia Protocol Furosemide 20 mg 03/13/25 09:00 03/28/25 14:41 Furosemide 20 Mg Tablet PO 20 mg QAM EJ Administration Glucagon 1 mg 03/13/25 08:49 Glucagon For Inj 1 Mg Vial IM PRN PRN Hypoglycemia Protocol Glucose 15 gm 03/13/25 08:49 03/14/25 21:01 Glucose Oral Gel 15 Gm Of Glucse In 37.5 Gm Tube PO 15 gm PRN PRN Administration Hypoglycemia Protocol Dextrose 1,000 mls @ 100 mls/hr 03/13/25 08:49 Dextrose 5% 1,000 Ml IVPB PRN PRN Hypoglycemia Protocol Cefepime HCl 2 gm/ Sodium 50 mls @ 100 mls/hr 03/26/25 22:00 03/28/25 14:41 Chloride IVPB 100 mls/hr Q8H EJ Administration Insulin Aspart 2 - 5 units 03/13/25 12:00 03/28/25 11:55 Insulin Aspart (*Bkc) 100 Units/Ml SUB-Q Not Given TIDWM [facility] Protocol Lidocaine 2 patch 03/14/25 09:00 03/28/25 08:15 Lidocaine 5% Patch TRANSDERM 2 patch DAILY EJ Administration Lisinopril 20 mg 03/13/25 21:00 03/27/25 20:57 Lisinopril 20 Mg Tablet PO 20 mg HS EJ Administration Multi-Ingred Cream/Lotion/Oil/Oint 1 applic 03/24/25 17:00 03/28/25 08:24 Eucerin Cream 120 Gm Jar TOPICAL 1 applic BID EJ Administration Ondansetron HCl 4 mg 03/13/25 08:49 Ondansetron Inj 4 Mg/2 Ml Vial IV PUSH Q6H PRN Nausea And Vomiting Oxycodone HCl 5 mg 03/14/25 13:14 03/27/25 14:59 Oxycodone Hcl (*Crx) 5 Mg Tab Ir PO 5 mg Q4H PRN Administration Pain Rated 6 or Greater Oxycodone HCl 2.5 mg 03/24/25 07:57 03/27/25 11:07 Oxycodone Hcl (*Crx) 2.5 Mg Tab Ir PO 2.5 mg Q4H PRN Administration Pain Rated 5 or Less Pantoprazole Sodium 40 mg 03/13/25 08:00 03/28/25 08:12 Pantoprazole 40 Mg Tablet PO 40 mg DAILY@0800 EJ Administration Polyethylene Glycol 17 gm 03/23/25 19:35 03/28/25 08:12 Polyethylene Glycol 3350 17 Gm Powd.Pack PO 17 gm QAM EJ Administration Radiology Results: ITS Impressions Elbow X-Ray 03/13/25 07:04 Impression: 1: No acute bone or joint abnormality. Chest X-Ray 03/13/25 07:05 IMPRESSION: 1: NO ACUTE CARDIOPULMONARY DISEASE. Tibia/Fibula X-Ray 03/13/25 07:06 Impression: 1: Mild-moderate polyarticular osteoarthritis. Lumbar Spine X-Ray 03/14/25 18:51 IMPRESSION: Normal lumbar spine. Ankle Brachial Index 03/19/25 14:34 IMPRESSION: 1. No significant arterial occlusive disease to either lower limb with normal bilateral TBIs. Skull X-Ray 03/20/25 14:40 Impression: No acute fracture or malalignment. Lumbar Spine MRI 03/20/25 18:05 IMPRESSION: 1. Evidence of acute discitis at L1-2 level with osteomyelitis involving L1 and L2 vertebral bodies.Para Vertebral inflammatory changes with microabscesses on both sides. 2. Significant narrowing of the thecal sac at L1-2 level as described above. 3. Findings at other disc levels are described above in detail. Lumbar Spine CT 03/27/25 15:24 IMPRESSION: 1. Destructive process of discitis at L1-2 level is noted with involvement of lower endplate of L1 and upper endplate of L2 vertebrae. Pathological fracture of upper endplate of L2 vertebra. These findings are more progressive compared with the CT findings on 03/20/2025. 2. Narrowing of thecal sac at upper L2 level as described above. 3. Paravertebral soft tissue inflammation at L1-L2 levels similar to prior study. Labs Labs: Laboratory Results - last 24 hr 03/27/25 03/28/25 03/28/25 16:44 04:26 07:39 WBC 10.2 H RBC 4.46 L Hgb 10.3 L Hct 34.5 L MCV 77.4 L MCH 23.1 L MCHC 29.9 L RDW 21.9 H Plt Count 631 H MPV 8.7 Immature Gran % (Auto) 0.6 H Neut % (Auto) 65.0 Lymph % (Auto) 22.7 [place] % (Auto) 7.8 Eos % (Auto) 3.0 Baso % (Auto) 0.9 Lymph # (Auto) 2.32 [place] # (Auto) 0.8 H Eos # (Auto) 0.3 Baso # (Auto) 0.1 Abs Immat Gran (auto) 0.06 H Absolute Neuts (auto) 6.7 Absolute Nucleated RBC 0.000 Band Neutrophils % Not Reportable Nucleated RBC % 0.0 Platelet Estimate Increased Hypochromasia 1+ Schistocytes None seen Sodium 135 L Potassium 4.3 Chloride 103 Carbon Dioxide 28 Anion Gap 4 BUN 14 Creatinine 0.59 L Estim Creat Clear Calc 141 Estimated GFR > 60 Glucose 115 H POC Capillary Glucose 134 H 145 H Calcium 9.2 Phosphorus 4.7 H C-Reactive Protein 3.0 H Albumin 3.5 03/28/25 11:22 WBC RBC Hgb Hct MCV MCH MCHC RDW Plt Count MPV Immature Gran % (Auto) Neut % (Auto) Lymph % (Auto) [place] % (Auto) Eos % (Auto) Baso % (Auto) Lymph # (Auto) [place] # (Auto) Eos # (Auto) Baso # (Auto) Abs Immat Gran (auto) Absolute Neuts (auto) Absolute Nucleated RBC Band Neutrophils % Nucleated RBC % Platelet Estimate Hypochromasia Schistocytes Sodium Potassium Chloride Carbon Dioxide Anion Gap BUN Creatinine Estim Creat Clear Calc Estimated GFR Glucose POC Capillary Glucose 150 H Calcium Phosphorus C-Reactive Protein Albumin Quality VTE Prophylaxis VTE prophylaxis: pharmacologic ordered
--- NOTE | 2025-03-28 17:41 | P.PNINF_ITS ---
Progress Note: A&P Assessment and Plan (1) Septic discitis of lumbar region: Code(s): M46.46 - Discitis, unspecified, lumbar region Status: Acute Assessment and Plan: See below (2) Osteomyelitis of lumbar vertebra: Code(s): M46.26 - Osteomyelitis of vertebra, lumbar region Status: Acute Assessment and Plan: See below (3) Paraspinal abscess: Code(s): M46.20 - Osteomyelitis of vertebra, site unspecified Status: Acute Assessment and Plan: See below (4) Epidural abscess: Code(s): G06.2 - Extradural and subdural abscess, unspecified Status: Acute Assessment and Plan: See below Plan ASSESSMENT: 1. MSSA septicemia --03/13/25 blood cultures: MSSA x 2 sets --03/15/25 blood cultures: MSSA x 1 of 2 sets --03/21/25 blood cultures: neg and final --Lumbar spinal infection --ANTIONE and TTE neg for findings c/w endocarditis 2. Acute L1/2 discitis/osteomyelitis with paraspinal and possible epidural extension --Suspect this is source of MSSA septicemia 3. Accelerating lumbar back pain since October 2024 --CT LS spine with L1/2 discitis/osteomyelitis with paraspinal and possible epidural extension 4. Proteus mirabilis LLE wound infection with cellulitis--?morganella also? 5. Chronic venous insufficiency with stasis dermatitis LLE>RLE 6. Mild leukocytosis--resolved 7. Non-sustained ventricular tachycardia (management as per Cardiology) 78. Tinnitus s/p cochlear implant/device surgery (more than 40 years ago) PLAN: -ANTIONE without vegetations--appreciate cards help -repeat CT lumbar spine with progression; no large abscess -Appreciate Neurosurgery consultation -Continue local wound care -given the epidural phelgmon, continue cefepime 2 grams IV Q8 hrs x 6 weeks at least. -place picc Final orders are cefepime 2 grams IV Q8 hours x 6 weeks 10 mL 0.9 normal saline flush pre and post each infusion weekly cmp, cbc, crp, esr faxed to my office at [phone] -will need to f/u in ID clinic as a tele visit--call for appt for 4 weeks from now--[phone] d/w nursing staff Pt was seen via video telehealth consultation with the assistance of staff. Chart, data and patient info reviewed. Patient was located at [facility] while I was in my [place] office. Pt gave consent. Subjective Date/time seen: 03/28/25 17:41 Interval history: no fever not much leukocytosis Exam Narrative: On room air, non-toxic had ANTIONE pale Objective Data Vital Signs Vital Signs: Vital Signs - 24 hr 03/27/25 20:59 03/27/25 21:50 03/28/25 00:00 Temperature 97.1 F L Pulse Rate 73 73 71 Respiratory Rate 18 Blood Pressure 113/60 Pulse Oximetry 95 Oxygen Delivery Oxygen Flow Rate 03/28/25 04:00 03/28/25 06:00 03/28/25 08:00 Temperature 97.8 F Pulse Rate 76 78 Respiratory Rate 18 Blood Pressure 122/61 Pulse Oximetry 95 Oxygen Delivery Room Air Oxygen Flow Rate 03/28/25 08:49 03/28/25 09:15 03/28/25 09:20 Temperature Pulse Rate 83 75 73 Respiratory Rate 20 16 17 Blood Pressure 121/74 135/69 115/84 Pulse Oximetry 95 97 96 Oxygen Delivery Room Air Nasal Cannula Nasal Cannula Oxygen Flow Rate 2 2 03/28/25 09:25 03/28/25 09:30 03/28/25 09:45 Temperature Pulse Rate 75 73 75 Respiratory Rate 20 16 20 Blood Pressure 119/62 89/60 L 99/51 L Pulse Oximetry 96 97 94 Oxygen Delivery Nasal Cannula Nasal Cannula Room Air Oxygen Flow Rate 2 2 03/28/25 10:00 03/28/25 10:15 03/28/25 14:00 Temperature 98.0 F Pulse Rate 74 73 75 Respiratory Rate 20 19 14 Blood Pressure 92/61 L 101/58 L 119/57 L Pulse Oximetry 93 92 95 Oxygen Delivery Room Air Room Air Oxygen Flow Rate Intake/Output Intake/Output: Intake & Output 03/25/25 03/26/25 03/27/25 03/28/25 23:59 23:59 23:59 23:59 Intake Total 1315 841 1017 540 Output Total 1100 4309 265 6156 Balance 16 -778 454 -560 Meds/Results Medications: Active Medications Generic Name Dose Route Start Last Admin Trade Name Freq PRN Reason Stop Dose Admin Acetaminophen 1,000 mg 03/27/25 19:16 Acetaminophen 500 Mg Tablet PO Q6HR PRN Mild Pain (1-3) or Fever Apixaban 5 mg 03/13/25 21:00 03/28/25 08:12 Apixaban 5 Mg Tablet PO 5 mg Q12HR EJ Administration Aspirin 81 mg 03/20/25 09:00 03/28/25 08:12 Aspirin 81 Mg Enteric Tablet PO 81 mg QAM EJ Administration Atorvastatin Calcium 10 mg 03/13/25 09:00 03/28/25 08:12 Atorvastatin 10 Mg Tablet PO 10 mg DAILY EJ Administration Carvedilol 6.25 mg 03/19/25 21:00 03/28/25 08:13 Carvedilol 6.25 Mg Tablet PO 6.25 mg Q12HR EJ Administration Cyclobenzaprine HCl 10 mg 03/19/25 16:55 03/27/25 13:41 Cyclobenzaprine Hcl 10 Mg Tablet PO 10 mg Q8H PRN Administration Muscle Spasm Dextrose 12.5 gm 03/13/25 08:49 Dextrose 50% 25 Gm/50 Ml Syringe IV PUSH PRN PRN Hypoglycemia Protocol Furosemide 20 mg 03/13/25 09:00 03/28/25 14:41 Furosemide 20 Mg Tablet PO 20 mg QAM EJ Administration Glucagon 1 mg 03/13/25 08:49 Glucagon For Inj 1 Mg Vial IM PRN PRN Hypoglycemia Protocol Glucose 15 gm 03/13/25 08:49 03/14/25 21:01 Glucose Oral Gel 15 Gm Of Glucse In 37.5 Gm Tube PO 15 gm PRN PRN Administration Hypoglycemia Protocol Dextrose 1,000 mls @ 100 mls/hr 03/13/25 08:49 Dextrose 5% 1,000 Ml IVPB PRN PRN Hypoglycemia Protocol Cefepime HCl 2 gm/ Sodium 50 mls @ 100 mls/hr 03/26/25 22:00 03/28/25 14:41 Chloride IVPB 100 mls/hr Q8H EJ Administration Insulin Aspart 2 - 5 units 03/13/25 12:00 03/28/25 17:06 Insulin Aspart (*Bkc) 100 Units/Ml SUB-Q Not Given TIDWM [facility] Protocol Lidocaine 2 patch 03/14/25 09:00 03/28/25 08:15 Lidocaine 5% Patch TRANSDERM 2 patch DAILY EJ Administration Lisinopril 20 mg 03/13/25 21:00 03/27/25 20:57 Lisinopril 20 Mg Tablet PO 20 mg HS EJ Administration Multi-Ingred Cream/Lotion/Oil/Oint 1 applic 03/24/25 17:00 03/28/25 17:10 Eucerin Cream 120 Gm Jar TOPICAL 1 applic BID EJ Administration Ondansetron HCl 4 mg 03/13/25 08:49 Ondansetron Inj 4 Mg/2 Ml Vial IV PUSH Q6H PRN Nausea And Vomiting Oxycodone HCl 5 mg 03/14/25 13:14 03/27/25 14:59 Oxycodone Hcl (*Crx) 5 Mg Tab Ir PO 5 mg Q4H PRN Administration Pain Rated 6 or Greater Oxycodone HCl 2.5 mg 03/24/25 07:57 03/27/25 11:07 Oxycodone Hcl (*Crx) 2.5 Mg Tab Ir PO 2.5 mg Q4H PRN Administration Pain Rated 5 or Less Pantoprazole Sodium 40 mg 03/13/25 08:00 03/28/25 08:12 Pantoprazole 40 Mg Tablet PO 40 mg DAILY@0800 EJ Administration Polyethylene Glycol 17 gm 03/23/25 19:35 03/28/25 08:12 Polyethylene Glycol 3350 17 Gm Powd.Pack PO 17 gm QAM EJ Administration Radiology Results: ITS Impressions Elbow X-Ray 03/13/25 07:04 Impression: 1: No acute bone or joint abnormality. Chest X-Ray 03/13/25 07:05 IMPRESSION: 1: NO ACUTE CARDIOPULMONARY DISEASE. Tibia/Fibula X-Ray 03/13/25 07:06 Impression: 1: Mild-moderate polyarticular osteoarthritis. Lumbar Spine X-Ray 03/14/25 18:51 IMPRESSION: Normal lumbar spine. Ankle Brachial Index 03/19/25 14:34 IMPRESSION: 1. No significant arterial occlusive disease to either lower limb with normal bilateral TBIs. Skull X-Ray 03/20/25 14:40 Impression: No acute fracture or malalignment. Lumbar Spine MRI 03/20/25 18:05 IMPRESSION: 1. Evidence of acute discitis at L1-2 level with osteomyelitis involving L1 and L2 vertebral bodies.Para Vertebral inflammatory changes with microabscesses on b oth sides. 2. Significant narrowing of the thecal sac at L1-2 level as described above. 3. Findings at other disc levels are described above in detail. Lumbar Spine CT 03/27/25 15:24 IMPRESSION: 1. Destructive process of discitis at L1-2 level is noted with involvement of lower endplate of L1 and upper endplate of L2 vertebrae. Pathological fracture of upper endplate of L2 vertebra. These findings are more progressive compared with the CT findings on 03/20/2025. 2. Narrowing of thecal sac at upper L2 level as described above. 3. Paravertebral soft tissue inflammation at L1-L2 levels similar to prior study. Labs Labs: Laboratory Results - last 24 hr 03/28/25 03/28/25 03/28/25 04:26 07:39 11:22 WBC 10.2 H RBC 4.46 L Hgb 10.3 L Hct 34.5 L MCV 77.4 L MCH 23.1 L MCHC 29.9 L RDW 21.9 H Plt Count 631 H MPV 8.7 Immature Gran % (Auto) 0.6 H Neut % (Auto) 65.0 Lymph % (Auto) 22.7 [place] % (Auto) 7.8 Eos % (Auto) 3.0 Baso % (Auto) 0.9 Lymph # (Auto) 2.32 [place] # (Auto) 0.8 H Eos # (Auto) 0.3 Baso # (Auto) 0.1 Abs Immat Gran (auto) 0.06 H Absolute Neuts (auto) 6.7 Absolute Nucleated RBC 0.000 Band Neutrophils % Not Reportable Nucleated RBC % 0.0 Platelet Estimate Increased Hypochromasia 1+ Schistocytes None seen Sodium 135 L Potassium 4.3 Chloride 103 Carbon Dioxide 28 Anion Gap 4 BUN 14 Creatinine 0.59 L Estim Creat Clear Calc 141 Estimated GFR > 60 Glucose 115 H POC Capillary Glucose 145 H 150 H Calcium 9.2 Phosphorus 4.7 H C-Reactive Protein 3.0 H Albumin 3.5 03/28/25 17:01 WBC RBC Hgb Hct MCV MCH MCHC RDW Plt Count MPV Immature Gran % (Auto) Neut % (Auto) Lymph % (Auto) [place] % (Auto) Eos % (Auto) Baso % (Auto) Lymph # (Auto) [place] # (Auto) Eos # (Auto) Baso # (Auto) Abs Immat Gran (auto) Absolute Neuts (auto) Absolute Nucleated RBC Band Neutrophils % Nucleated RBC % Platelet Estimate Hypochromasia Schistocytes Sodium Potassium Chloride Carbon Dioxide Anion Gap BUN Creatinine Estim Creat Clear Calc Estimated GFR Glucose POC Capillary Glucose 111 H Calcium Phosphorus C-Reactive Protein Albumin
[2025-03-28] MEDS: ACETAMINOPHEN 500 MG TABLET 1000 MG PO (18:03)
[2025-03-29] VITALS (11 sets, daily range): BP systolic 113–132; BP diastolic 65–76; PULSE 65–81; RESP 16–20; TEMP 36.6; O2SAT 95–96
[2025-03-29] MEDS: CEFEPIME 2 GM in SODIUM CHLORIDE 0.9% IV 50 ML 100 ML IVPB ×3 (05:11→21:11)
[2025-03-29 05:25] LABS: Hematocrit 34.1 % (42.0-52.0); Hemoglobin 10.2 g/dL (14.0-18.0); Immature Granulocyte Percent A 0.4 % (0-0.5); Lymphocytes Absolute Auto 2.06 K/mm3 (0.9-3.2); Mean Corpuscular HGB Conc 29.9 g/dl (32-36); Mean Corpuscular Hemoglobin 23.3 pg (26-34); Mean Corpuscular Volume 77.9 fl (80-100); Nucleated Red Blood Cells Absolute Auto 0.000 K/mm3 (0.0-0.012); Nucleated Red Blood Cells Perc 0.0 % (0.0-0.2); Platelet Count Result 581 k/mm3 (150-375); Red Blood Count 4.38 M/mm3 (4.6-6.20); White Blood Count 9.2 K/mm3 (4.5-10.0)
[2025-03-29 05:59] LABS: Anion Gap 4 mmol/L (4-12); Blood Urea Nitrogen 12 mg/dL (9-20); Calcium 9.1 mg/dL (8.4-10.2); Carbon Dioxide 29 mmol/L (22-30); Chloride 102 mmol/L (98-107); Estimated CRCL calculation 150 ml/min; Estimated Glomerular Filt Rate > 60; Glucose 108 mg/dL (65-110); Potassium 4.2 mmol/L (3.4-5.0); Sodium 135 mmol/L (137-145)
[2025-03-29 06:10] LABS: Anisocytosis 2+; Hypochromasia 1+; Schistocytes None Seen
[2025-03-29 06:13] LABS: Target Cells Occasional
[2025-03-29] MEDS: FUROSEMIDE 20 MG TABLET PO (08:14)
[2025-03-29] MEDS: LIDOCAINE 5% PATCH 2 PATCH TRANSDERM (08:14)
[2025-03-29] MEDS: ASPIRIN 81 MG ENTERIC TABLET PO (08:14)
[2025-03-29] MEDS: EUCERIN CREAM 120 GM JAR 1 APPLIC TOPICAL ×2 (08:15→17:34)
[2025-03-29] MEDS: APIXABAN 5 MG TABLET PO ×2 (08:15→21:10)
[2025-03-29] MEDS: ATORVASTATIN 10 MG TABLET PO (08:15)
[2025-03-29] MEDS: PANTOPRAZOLE 40 MG TABLET PO (08:15)
--- NOTE | 2025-03-29 11:06 | PCOTNOTE ---
Attempted to see pt. for therapy reevaluation. Spoke with hospitalist who is enroute to facility, who reports to hold on therapy serves for this date due to continued need for possible neuro consult with CT findings on 03/28/25
[2025-03-29] MEDS: ACETAMINOPHEN 500 MG TABLET 1000 MG PO ×2 (11:27→17:39)
--- NOTE | 2025-03-29 12:31 | P.PNIM_ITS ---
Progress Note: A&P Assessment and Plan (1) Septicemia: Code(s): A41.9 - Sepsis, unspecified organism Status: Acute Assessment and Plan: Patient presented to the ED with complaints of fall at home and worsening weakness and noted to have LLE draining wound, possibly cellulitis. He was started on Vancomycin, Cefepime and Flagyl. WCx: Morganella sensitive to bactrim, cipro, zosyn. BCx (03/13) MSSA BCx (03/15) MSSA one aerobic bottle only TTE 03/17 showing no vegetations. Abx changed to Cefazolin/Bactrim PO on 03/17/25. Bactrim stopped 03/22 BCx (03/21) negative Source is from acute L1-L2 diskitis/osteomyelitis with paraspinal/possible epidural extension and possibly cellulitis ID following s/p Cefazolin Continue IV cefepime 2 grams Q 8 hours ANTIONE negative for vegetation (2) Septic discitis of lumbar region: Code(s): M46.46 - Discitis, unspecified, lumbar region Status: Acute Assessment and Plan: Patient has been having increasing back pain since October. Lumbar spine CT 03/20 showing an aggressive process at the L1-2 interspace likely involving discitis, osteomyelitis of both vertebral bodies, and paraspinal phlegmon/developing abscess with possible epidural involvement as well. Lumbar MRI 03/20 showing evidence of acute discitis at L1-2 level with osteomyelitis involving L1 and L2 vertebral bodies, para-vertebral inflammatory changes with microabscesses on both sides and significant narrowing of the thecal sac at L1-2 level Repeat Lumbar spine CT 03/27 showing destructive process of discitis at L1-2 level with involvement of lower endplate of L1 and upper endplate of L2 vertebrae. Pathological fracture of upper endplate of L2 vertebra. These findings are more progressive compared with the CT findings on 03/20/2025. Also with narrowing of thecal sac at upper L2 level and paravertebral soft tissue inflammation at L1-L2 levels similar to prior study. Neurosurgery consulted and appreciate their help. Recommendations felt condition to be non-surgical but wthey will be called with updated imaging study. Pain control Antibiotic as per ID PT/OT as tolerated. Placement being arranged. patient had repeat CT which showed more progressive compared with the CT findings on 03/20/2025.We will follow Neurosurgery recommendations. pain is not controlled, patient unable to sit in chair or ambulate, add oxycontin 10 mg Q 12 hours, continue PRN oxycodone and flexeril (3) Paraspinal abscess: Code(s): M46.20 - Osteomyelitis of vertebra, site unspecified Status: Acute Assessment and Plan: As above (4) Osteomyelitis of lumbar vertebra: Code(s): M46.26 - Osteomyelitis of vertebra, lumbar region Status: Acute Assessment and Plan: As above (5) Ventricular tachycardia seen on credit review officer: Code(s): I47.20 - Ventricular tachycardia, unspecified Status: Acute Assessment and Plan: Nonsustained ventricular tachycardia noted on tele. Cardiology consulted and appreciate their help Abnormal stress test in January showing a small region of mild reversible ischemia at the apical anterior, apical lateral and basilar inferolateral segments. Continue with aspirin, Coreg, Lipitor Further ischemic eval depending on symptoms and monitor results as outpatient once bacteremia clears (can be done as an outpatient) Plan to discharge on event monitor for 30 days Outpatient follow-up with Cardiology in 2-4 weeks upon discharge (6) Generalized weakness: Code(s): R53.1 - Weakness Status: Acute Assessment and Plan: Related to above PT/OT (7) Type 2 diabetes mellitus without complications: Code(s): E11.9 - Type 2 diabetes mellitus without complications Status: Acute Assessment and Plan: A1c 6.4% in January. The patient's blood glucose was reviewed on 03/27 Glucose remains mostly well controlled. Continue AccuCheks covering with sliding scale. Hypoglycemia protocol available as needed. Continue to follow (8) Essential (primary) hypertension: Code(s): I10 - Essential (primary) hypertension Status: Acute Assessment and Plan: Patient's blood pressure was reviewed on 03/27 Blood pressure remains well controlled. Will continue to monitor (9) Stasis dermatitis: Code(s): I87.2 - Venous insufficiency (chronic) (peripheral) Status: Acute Assessment and Plan: Chronic venous insufficiency with stasis dermatitis LLE>RLE Possible cellulitis on admission given the resolution of the erythema. Wound care following. Continue Eucerin cream for skin care (10) Pressure ulcer: Code(s): L89.90 - Pressure ulcer of unspecified site, unspecified stage Status: Acute Assessment and Plan: Pressure ulcer noted left buttock Wound care following Off loading Plan Code status: Full DVT prophylaxis: Sylvester Disposition: [facility]. Subjective Date/time seen: 03/29/25 12:31 Interval history: Patient seen for a follow up visit. Patient reports pain is not controlled unless he lays completely still in the bed. Patient asks for PRN oxycodone and muscle relaxers but reports they do not help enough with the pain for him to stay out of bed. Discussed pain management with patient and will start oxycontin 10 mg Q 12 hours. Goal is to control pain to where patient is able to get out of bed and participate in therapy. Patient is tolerating IV antibiotics. ID and Neurosurgery following. Review of Systems Review of Systems: All systems reviewed & are unremarkable except as noted in HPI and below Exam Const: General: comfortable and no acute distress Other: Pleasant chronically ill gentleman, obese HENMT: Mouth: Yes moist mucous membranes Eyes: General: appearance normal, both eyes and all related structures Sclera: sclerae normal Pupils: Equal, round and reactive pupils present Neck: Neck: supple and no JVD Resp: Effort & Inspection: normal respiratory effort Auscultation: clear to auscultation bilaterally Cardio: Rate: tachycardic Rhythm: regular rhythm GI: Auscultation: normal bowel sounds Skin: Other: chronic venous stasis changes to lower extremities Neuro: Cranial nerves: Yes Equal, round and reactive pupils present Speech: normal speech Other: Unable to evaluate gait, pain with and movement to BLE Extrem: Other: chronic venous stasis changes to BLE, no edema Psych: Mental Status: mental status grossly normal Affect: normal affect Objective Data Vital Signs Vital Signs: Vital Signs - 24 hr 03/28/25 14:00 03/28/25 20:00 03/28/25 21:33 Temperature 98.0 F 97.3 F L Pulse Rate 75 65 66 Respiratory Rate 14 18 Blood Pressure 119/57 L 99/56 L Pulse Oximetry 95 95 Oxygen Delivery 03/29/25 00:00 03/29/25 03:47 03/29/25 04:04 Temperature Pulse Rate 65 65 69 Respiratory Rate Blood Pressure Pulse Oximetry Oxygen Delivery 03/29/25 06:00 03/29/25 08:00 03/29/25 08:00 Temperature 97.9 F Pulse Rate 81 80 Respiratory Rate 16 Blood Pressure 122/74 Pulse Oximetry 95 Oxygen Delivery Room Air 03/29/25 08:14 03/29/25 12:00 Temperature Pulse Rate 81 66 Respiratory Rate Blood Pressure Pulse Oximetry Oxygen Delivery Intake/Output Intake/Output: Intake & Output 03/26/25 03/27/25 03/28/25 03/29/25 23:59 23:59 23:59 23:59 Intake Total 840 1100 880 740 Output Total 2485 908 1524 1150 Balance -435 519 -885 -994 Meds/Results Medications: Active Medications Generic Name Dose Route Start Last Admin Trade Name Freq PRN Reason Stop Dose Admin Acetaminophen 1,000 mg 03/27/25 19:16 03/29/25 11:27 Acetaminophen 500 Mg Tablet PO 1,000 mg Q6HR PRN Administration Mild Pain (1-3) or Fever Apixaban 5 mg 03/13/25 21:00 03/29/25 08:15 Apixaban 5 Mg Tablet PO 5 mg Q12HR EJ Administration Aspirin 81 mg 03/20/25 09:00 03/29/25 08:14 Aspirin 81 Mg Enteric Tablet PO 81 mg QAM EJ Administration Atorvastatin Calcium 10 mg 03/13/25 09:00 03/29/25 08:15 Atorvastatin 10 Mg Tablet PO 10 mg DAILY EJ Administration Carvedilol 6.25 mg 03/19/25 21:00 03/29/25 08:14 Carvedilol 6.25 Mg Tablet PO 6.25 mg Q12HR EJ Administration Cyclobenzaprine HCl 10 mg 03/19/25 16:55 03/27/25 13:41 Cyclobenzaprine Hcl 10 Mg Tablet PO 10 mg Q8H PRN Administration Muscle Spasm Dextrose 12.5 gm 03/13/25 08:49 Dextrose 50% 25 Gm/50 Ml Syringe IV PUSH PRN PRN Hypoglycemia Protocol Furosemide 20 mg 03/13/25 09:00 03/29/25 08:14 Furosemide 20 Mg Tablet PO 20 mg QAM EJ Administration Glucagon 1 mg 03/13/25 08:49 Glucagon For Inj 1 Mg Vial IM PRN PRN Hypoglycemia Protocol Glucose 15 gm 03/13/25 08:49 03/14/25 21:01 Glucose Oral Gel 15 Gm Of Glucse In 37.5 Gm Tube PO 15 gm PRN PRN Administration Hypoglycemia Protocol Dextrose 1,000 mls @ 100 mls/hr 03/13/25 08:49 Dextrose 5% 1,000 Ml IVPB PRN PRN Hypoglycemia Protocol Cefepime HCl 2 gm/ Sodium 50 mls @ 100 mls/hr 03/26/25 22:00 03/29/25 05:11 Chloride IVPB 100 mls/hr Q8H EJ Administration Insulin Aspart 2 - 5 units 03/13/25 12:00 03/29/25 11:23 Insulin Aspart (*Bkc) 100 Units/Ml SUB-Q Not Given [facility] Protocol Lidocaine 2 patch 03/14/25 09:00 03/29/25 08:14 Lidocaine 5% Patch TRANSDERM 2 patch DAILY EJ Administration Lisinopril 20 mg 03/13/25 21:00 03/28/25 20:45 Lisinopril 20 Mg Tablet PO 20 mg HS EJ Administration Multi-Ingred Cream/Lotion/Oil/Oint 1 applic 03/24/25 17:00 03/29/25 08:15 Eucerin Cream 120 Gm Jar TOPICAL 1 applic BID EJ Administration Ondansetron HCl 4 mg 03/13/25 08:49 Ondansetron Inj 4 Mg/2 Ml Vial IV PUSH Q6H PRN Nausea And Vomiting Oxycodone HCl 5 mg 03/14/25 13:14 03/27/25 14:59 Oxycodone Hcl (*Crx) 5 Mg Tab Ir PO 5 mg Q4H PRN Administration Pain Rated 6 or Greater Oxycodone HCl 2.5 mg 03/24/25 07:57 03/27/25 11:07 Oxycodone Hcl (*Crx) 2.5 Mg Tab Ir PO 2.5 mg Q4H PRN Administration Pain Rated 5 or Less Pantoprazole Sodium 40 mg 03/13/25 08:00 03/29/25 08:15 Pantoprazole 40 Mg Tablet PO 40 mg DAILY@0800 [facility] Administration Polyethylene Glycol 17 gm 03/23/25 19:35 03/29/25 08:15 Polyethylene Glycol 3350 17 Gm Powd.Pack PO 17 gm QAM EJ Administration Radiology Results: ITS Impressions Elbow X-Ray 03/13/25 07:04 Impression: 1: No acute bone or joint abnormality. Chest X-Ray 03/13/25 07:05 IMPRESSION: 1: NO ACUTE CARDIOPULMONARY DISEASE. Tibia/Fibula X-Ray 03/13/25 07:06 Impression: 1: Mild-moderate polyarticular osteoarthritis. Lumbar Spine X-Ray 03/14/25 18:51 IMPRESSION: Normal lumbar spine. Ankle Brachial Index 03/19/25 14:34 IMPRESSION: 1. No significant arterial occlusive disease to either lower limb with normal bilateral TBIs. Skull X-Ray 03/20/25 14:40 Impression: No acute fracture or malalignment. Lumbar Spine MRI 03/20/25 18:05 IMPRESSION: 1. Evidence of acute discitis at L1-2 level with osteomyelitis involving L1 and L2 vertebral bodies.Para Vertebral inflammatory changes with microabscesses on both sides. 2. Significant narrowing of the thecal sac at L1-2 level as described above. 3. Findings at other disc levels are described above in detail. Lumbar Spine CT 03/27/25 15:24 IMPRESSION: 1. Destructive process of discitis at L1-2 level is noted with involvement of lower endplate of L1 and upper endplate of L2 vertebrae. Pathological fracture of upper endplate of L2 vertebra. These findings are more progressive compared with the CT findings on 03/20/2025. 2. Narrowing of thecal sac at upper L2 level as described above. 3. Paravertebral soft tissue inflammation at L1-L2 levels similar to prior study. Labs Labs: Laboratory Results - last 24 hr 03/28/25 03/28/25 03/29/25 17:01 21:12 04:44 WBC 9.2 RBC 4.38 L Hgb 10.2 L Hct 34.1 L MCV 77.9 L MCH 23.3 L MCHC 29.9 L RDW 22.3 H Plt Count 581 H MPV 8.8 Immature Gran % (Auto) 0.4 Neut % (Auto) 62.4 Lymph % (Auto) 22.3 [place] % (Auto) 9.2 H Eos % (Auto) 4.6 H Baso % (Auto) 1.1 Lymph # (Auto) 2.06 [place] # (Auto) 0.9 H Eos # (Auto) 0.4 H Baso # (Auto) 0.1 Abs Immat Gran (auto) 0.04 H Absolute Neuts (auto) 5.8 Absolute Nucleated RBC 0.000 Band Neutrophils % Not Reportable Nucleated RBC % 0.0 Platelet Estimate Increased Hypochromasia 1+ Anisocytosis 2+ Target Cells Occasional Schistocytes None seen Sodium 135 L Potassium 4.2 Chloride 102 Carbon Dioxide 29 Anion Gap 4 BUN 12 Creatinine 0.55 L Estim Creat Clear Calc 150 Estimated GFR > 60 Glucose 108 POC Capillary Glucose 111 H 154 H Calcium 9.1 03/29/25 03/29/25 07:10 11:19 WBC RBC Hgb Hct MCV MCH MCHC RDW Plt Count MPV Immature Gran % (Auto) Neut % (Auto) Lymph % (Auto) [place] % (Auto) Eos % (Auto) Baso % (Auto) Lymph # (Auto) [place] # (Auto) Eos # (Auto) Baso # (Auto) Abs Immat Gran (auto) Absolute Neuts (auto) Absolute Nucleated RBC Band Neutrophils % Nucleated RBC % Platelet Estimate Hypochromasia Anisocytosis Target Cells Schistocytes Sodium Potassium Chloride Carbon Dioxide Anion Gap BUN Creatinine Estim Creat Clear Calc Estimated GFR Glucose POC Capillary Glucose 142 H 160 H Calcium Quality VTE Prophylaxis VTE prophylaxis: pharmacologic ordered
[2025-03-29] MEDS: oxyCODONE HCL (*CRX) 10 MG TAB SR 12HR PO (21:10)
[2025-03-29] MEDS: CYCLOBENZAPRINE HCL 10 MG TABLET PO (22:24)
[2025-03-30] VITALS (11 sets, daily range): BP systolic 103–136; BP diastolic 59–98; PULSE 67–76; RESP 14–18; TEMP 36.5–36.7; O2SAT 98
[2025-03-30] MEDS: oxyCODONE HCL (*CRX) 5 MG TAB IR PO ×3 (00:24→20:56)
[2025-03-30] MEDS: CEFEPIME 2 GM in SODIUM CHLORIDE 0.9% IV 50 ML 100 ML IVPB ×3 (05:11→20:54)
[2025-03-30] MEDS: ACETAMINOPHEN 500 MG TABLET 1000 MG PO ×2 (05:11→13:55)
[2025-03-30] MEDS: LIDOCAINE 5% PATCH 2 PATCH TRANSDERM (08:37)
[2025-03-30] MEDS: EUCERIN CREAM 120 GM JAR 1 APPLIC TOPICAL ×2 (08:38→18:06)
[2025-03-30] MEDS: ATORVASTATIN 10 MG TABLET PO (08:38)
[2025-03-30] MEDS: PANTOPRAZOLE 40 MG TABLET PO (08:38)
[2025-03-30] MEDS: APIXABAN 5 MG TABLET PO ×2 (08:39→19:54)
[2025-03-30] MEDS: ASPIRIN 81 MG ENTERIC TABLET PO (08:39)
[2025-03-30] MEDS: FUROSEMIDE 20 MG TABLET PO (08:39)
[2025-03-30] MEDS: oxyCODONE HCL (*CRX) 10 MG TAB SR 12HR PO ×2 (08:39→19:54)
--- NOTE | 2025-03-30 12:37 | PCOTNOTE ---
Pt has still not been re-evaluated by neurosurgery due to worsening CT results from prior scans. Continue to hold until re-evaluation is complete.
--- NOTE | 2025-03-30 14:56 | P.PNIM_ITS ---
Progress Note: A&P Assessment and Plan (1) Septicemia: Code(s): A41.9 - Sepsis, unspecified organism Status: Acute Assessment and Plan: Patient presented to the ED with complaints of fall at home and worsening weakness and noted to have LLE draining wound, possibly cellulitis. He was started on Vancomycin, Cefepime and Flagyl. WCx: Morganella sensitive to bactrim, cipro, zosyn. BCx (03/13) MSSA BCx (03/15) MSSA one aerobic bottle only TTE 03/17 showing no vegetations. Abx changed to Cefazolin/Bactrim PO on 03/17/25. 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 (2) Septic discitis of lumbar region: Code(s): M46.46 - Discitis, unspecified, lumbar region Status: Acute Assessment and Plan: Patient has been having increasing back pain since October. Lumbar spine CT 03/20 showing an aggressive process at the L1-2 interspace likely involving discitis, osteomyelitis of both vertebral bodies, and paraspinal phlegmon/developing abscess with possible epidural involvement as well. Lumbar MRI 03/20 showing evidence of acute discitis at L1-2 level with osteomyelitis involving L1 and L2 vertebral bodies, para-vertebral inflammatory changes with microabscesses on both sides and significant narrowing of the thecal sac at L1-2 level Repeat Lumbar spine CT 03/27 showing destructive process of discitis at L1-2 level with involvement of lower endplate of L1 and upper endplate of L2 vertebrae. Pathological fracture of upper endplate of L2 vertebra. These findings are more progressive compared with the CT findings on 03/20/2025. Also with narrowing of thecal sac at upper L2 level and paravertebral soft tissue inflammation at L1-L2 levels similar to prior study. Neurosurgery consulted and appreciate their help. Recommendations felt condition to be non-surgical but wthey will be called with updated imaging study. Pain control Antibiotic as per ID PT/OT as tolerated. Placement being arranged. patient had repeat CT which showed more progressive compared with the CT findings on 03/20/2025.We will follow Neurosurgery recommendations. pain is not controlled, patient unable to sit in chair or ambulate, add oxycontin 10 mg Q 12 hours, continue PRN oxycodone and flexeril (3) Paraspinal abscess: Code(s): M46.20 - Osteomyelitis of vertebra, site unspecified Status: Acute Assessment and Plan: As above (4) Osteomyelitis of lumbar vertebra: Code(s): M46.26 - Osteomyelitis of vertebra, lumbar region Status: Acute Assessment and Plan: As above (5) Ventricular tachycardia seen on monitoring analyst: Code(s): I47.20 - Ventricular tachycardia, unspecified Status: Acute Assessment and Plan: Nonsustained ventricular tachycardia noted on tele. Cardiology consulted and appreciate their help Abnormal stress test in January showing a small region of mild reversible ischemia at the apical anterior, apical lateral and basilar inferolateral segments. Continue with aspirin, Coreg, Lipitor Further ischemic eval depending on symptoms and monitor results as outpatient once bacteremia clears (can be done as an outpatient) Plan to discharge on event monitor for 30 days Outpatient follow-up with Cardiology in 2-4 weeks upon discharge (6) Generalized weakness: Code(s): R53.1 - Weakness Status: Acute Assessment and Plan: Related to above PT/OT (7) Type 2 diabetes mellitus without complications: Code(s): E11.9 - Type 2 diabetes mellitus without complications Status: Acute Assessment and Plan: A1c 6.4% in January. The patient's blood glucose was reviewed on 03/27 Glucose remains mostly well controlled. Continue AccuCheks covering with sliding scale. Hypoglycemia protocol available as needed. Continue to follow (8) Essential (primary) hypertension: Code(s): I10 - Essential (primary) hypertension Status: Acute Assessment and Plan: Patient's blood pressure was reviewed on 03/27 Blood pressure remains well controlled. Will continue to monitor (9) Stasis dermatitis: Code(s): I87.2 - Venous insufficiency (chronic) (peripheral) Status: Acute Assessment and Plan: Chronic venous insufficiency with stasis dermatitis LLE>RLE Possible cellulitis on admission given the resolution of the erythema. Wound care following. Continue Eucerin cream for skin care (10) Pressure ulcer: Code(s): L89.90 - Pressure ulcer of unspecified site, unspecified stage Status: Acute Assessment and Plan: Pressure ulcer noted left buttock Wound care following Off loading Plan Code status: Full DVT prophylaxis: Eliquis Disposition: Needs SNF, CM working on acceptance Subjective Date/time seen: 03/30/25 14:56 Interval history: Patient seen for a follow up visit. Patient lying in bed, in no acute distress. Patient reports his pain is still severe with any movement or rolling. Started on Oxycontin 10 mg BID yesterday. Patient encouraged to still use PRN analgesics in addition. Patient continues on IV cefepime. Patient needs placement, case management working on this. Review of Systems Review of Systems: All systems reviewed & are unremarkable except as noted in HPI and below Exam Const: General: comfortable and no acute distress Other: Pleasant chronically ill gentleman, obese HENMT: Mouth: Yes moist mucous membranes Eyes: General: appearance normal, both eyes and all related structures Sclera: sclerae normal Pupils: Equal, round and reactive pupils present Neck: Neck: supple and no JVD Resp: Effort & Inspection: normal respiratory effort Auscultation: clear to auscultation bilaterally Cardio: Rate: regular rate Rhythm: regular rhythm GI: Auscultation: normal bowel sounds Skin: Other: chronic venous stasis changes to lower extremities Neuro: Cranial nerves: Yes Equal, round and reactive pupils present Speech: normal speech Other: Unable to evaluate gait, pain with and movement to BLE Extrem: Other: chronic venous stasis changes to BLE, no edema Psych: Mental Status: mental status grossly normal Affect: normal affect Objective Data Vital Signs Vital Signs: Vital Signs - 24 hr 03/29/25 16:00 03/29/25 20:00 03/29/25 22:00 Temperature 97.9 F Pulse Rate 68 73 71 Respiratory Rate 20 Blood Pressure 132/65 Pulse Oximetry 96 Oxygen Delivery 03/30/25 00:00 03/30/25 04:00 03/30/25 06:00 Temperature 98.1 F Pulse Rate 68 72 67 Respiratory Rate 16 Blood Pressure 103/59 L Pulse Oximetry 98 Oxygen Delivery 03/30/25 08:00 03/30/25 08:00 03/30/25 08:39 Temperature Pulse Rate 76 67 Respiratory Rate Blood Pressure Pulse Oximetry Oxygen Delivery Room Air 03/30/25 12:00 Temperature Pulse Rate 74 Respiratory Rate Blood Pressure Pulse Oximetry Oxygen Delivery Intake/Output Intake/Output: Intake & Output 03/27/25 03/28/25 03/29/25 03/30/25 23:59 23:59 23:59 23:59 Intake Total 6189 531 8569 790 Output Total 400 1100 1525 200 Balance 700 220 -050 590 Meds/Results Medications: Active Medications Generic Name Dose Route Start Last Admin Trade Name Freq PRN Reason Stop Dose Admin Acetaminophen 1,000 mg 03/27/25 19:16 03/30/25 13:55 Acetaminophen 500 Mg Tablet PO 1,000 mg Q6HR PRN Administration Mild Pain (1-3) or Fever Apixaban 5 mg 03/13/25 21:00 03/30/25 08:39 Apixaban 5 Mg Tablet PO 5 mg Q12HR EJ Administration Aspirin 81 mg 03/20/25 09:00 03/30/25 08:39 Aspirin 81 Mg Enteric Tablet PO 81 mg QAM EJ Administration Atorvastatin Calcium 10 mg 03/13/25 09:00 03/30/25 08:38 Atorvastatin 10 Mg Tablet PO 10 mg DAILY EJ Administration Carvedilol 6.25 mg 03/19/25 21:00 03/30/25 08:39 Carvedilol 6.25 Mg Tablet PO 6.25 mg Q12HR EJ Administration Cyclobenzaprine HCl 10 mg 03/19/25 16:55 03/29/25 22:24 Cyclobenzaprine Hcl 10 Mg Tablet PO 10 mg Q8H PRN Administration Muscle Spasm Dextrose 12.5 gm 03/13/25 08:49 Dextrose 50% 25 Gm/50 Ml Syringe IV PUSH PRN PRN Hypoglycemia Protocol Furosemide 20 mg 03/13/25 09:00 03/30/25 08:39 Furosemide 20 Mg Tablet PO 20 mg QAM EJ Administration Glucagon 1 mg 03/13/25 08:49 Glucagon For Inj 1 Mg Vial IM PRN PRN Hypoglycemia Protocol Glucose 15 gm 03/13/25 08:49 03/14/25 21:01 Glucose Oral Gel 15 Gm Of Glucse In 37.5 Gm Tube PO 15 gm PRN PRN Administration Hypoglycemia Protocol Dextrose 1,000 mls @ 100 mls/hr 03/13/25 08:49 Dextrose 5% 1,000 Ml IVPB PRN PRN Hypoglycemia Protocol Cefepime HCl 2 gm/ Sodium 50 mls @ 100 mls/hr 03/26/25 22:00 03/30/25 13:55 Chloride IVPB 100 mls/hr Q8H EJ Administration Insulin Aspart 2 - 5 units 03/13/25 12:00 03/30/25 12:58 Insulin Aspart (*Bkc) 100 Units/Ml SUB-Q Not Given TIDWM [facility] Protocol Lidocaine 2 patch 03/14/25 09:00 03/30/25 08:37 Lidocaine 5% Patch TRANSDERM 2 patch DAILY EJ Administration Lisinopril 20 mg 03/13/25 21:00 03/29/25 21:10 Lisinopril 20 Mg Tablet PO 20 mg HS EJ Administration Multi-Ingred Cream/Lotion/Oil/Oint 1 applic 03/24/25 17:00 03/30/25 08:38 Eucerin Cream 120 Gm Jar TOPICAL 1 applic BID EJ Administration Ondansetron HCl 4 mg 03/13/25 08:49 Ondansetron Inj 4 Mg/2 Ml Vial IV PUSH Q6H PRN Nausea And Vomiting Oxycodone HCl 5 mg 03/14/25 13:14 03/30/25 05:26 Oxycodone Hcl (*Crx) 5 Mg Tab Ir PO 5 mg Q4H PRN Administration Pain Rated 6 or Greater Oxycodone HCl 2.5 mg 03/24/25 07:57 03/27/25 11:07 Oxycodone Hcl (*Crx) 2.5 Mg Tab Ir PO 2.5 mg Q4H PRN Administration Pain Rated 5 or Less Oxycodone HCl 10 mg 03/29/25 21:00 03/30/25 08:39 Oxycodone Hcl (*Crx) 10 Mg Tab Sr 12hr PO 10 mg Q12HR EJ Administration Pantoprazole Sodium 40 mg 03/13/25 08:00 03/30/25 08:38 Pantoprazole 40 Mg Tablet PO 40 mg DAILY@0800 [facility] Administration Polyethylene Glycol 17 gm 03/23/25 19:35 03/30/25 08:38 Polyethylene Glycol 3350 17 Gm Powd.Pack PO 17 gm QAM EJ Administration Radiology Results: ITS Impressions Elbow X-Ray 03/13/25 07:04 Impression: 1: No acute bone or joint abnormality. Chest X-Ray 03/13/25 07:05 IMPRESSION: 1: NO ACUTE CARDIOPULMONARY DISEASE. Tibia/Fibula X-Ray 03/13/25 07:06 Impression: 1: Mild-moderate polyarticular osteoarthritis. Lumbar Spine X-Ray 03/14/25 18:51 IMPRESSION: Normal lumbar spine. Ankle Brachial Index 03/19/25 14:34 IMPRESSION: 1. No significant arterial occlusive disease to either lower limb with normal bilateral TBIs. Skull X-Ray 03/20/25 14:40 Impression: No acute fracture or malalignment. Lumbar Spine MRI 03/20/25 18:05 IMPRESSION: 1. Evidence of acute discitis at L1-2 level with osteomyelitis involving L1 and L2 vertebral bodies.Para Vertebral inflammatory changes with microabscesses on both sides. 2. Significant narrowing of the thecal sac at L1-2 level as described above. 3. Findings at other disc levels are described above in detail. Lumbar Spine CT 03/27/25 15:24 IMPRESSION: 1. Destructive process of discitis at L1-2 level is noted with involvement of lower endplate of L1 and upper endplate of L2 vertebrae. Pathological fracture of upper endplate of L2 vertebra. These findings are more progressive compared with the CT findings on 03/20/2025. 2. Narrowing of thecal sac at upper L2 level as described above. 3. Paravertebral soft tissue inflammation at L1-L2 levels similar to prior study. Labs Labs: Laboratory Results - last 24 hr 03/29/25 03/29/25 03/30/25 16:14 21:00 07:39 POC Capillary Glucose 103 140 H 132 H 03/30/25 11:42 POC Capillary Glucose 117 H Quality VTE Prophylaxis VTE prophylaxis: pharmacologic ordered
[2025-03-30] MEDS: CYCLOBENZAPRINE HCL 10 MG TABLET PO (20:56)
[2025-03-31] VITALS (10 sets, daily range): BP systolic 118–132; BP diastolic 55–64; PULSE 67–76; RESP 16–18; TEMP 36.9–37.1; O2SAT 94–100
[2025-03-31] MEDS: CEFEPIME 2 GM in SODIUM CHLORIDE 0.9% IV 50 ML 100 ML IVPB ×3 (05:47→21:32)
--- NOTE | 2025-03-31 08:18 | PM.IMPN ---
Progress Note: A&P Assessment and Plan (1) Septicemia: Code(s): A41.9 - Sepsis, unspecified organism Status: Acute Assessment and Plan: Patient presented to the ED with complaints of fall at home and worsening weakness and noted to have LLE draining wound, possibly cellulitis. He was started on Vancomycin, Cefepime and Flagyl. WCx: Morganella sensitive to bactrim, cipro, zosyn. BCx (03/13) MSSA BCx (03/15) MSSA one aerobic bottle only TTE 03/17 showing no vegetations. Abx changed to Cefazolin/Bactrim PO on 03/17/25. 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 (2) Septic discitis of lumbar region: Code(s): M46.46 - Discitis, unspecified, lumbar region Status: Acute Assessment and Plan: Patient has been having increasing back pain since October. Lumbar spine CT 03/20 showing an aggressive process at the L1-2 interspace likely involving discitis, osteomyelitis of both vertebral bodies, and paraspinal phlegmon/developing abscess with possible epidural involvement as well. Lumbar MRI 03/20 showing evidence of acute discitis at L1-2 level with osteomyelitis involving L1 and L2 vertebral bodies, para-vertebral inflammatory changes with microabscesses on both sides and significant narrowing of the thecal sac at L1-2 level Repeat Lumbar spine CT 03/27 showing destructive process of discitis at L1-2 level with involvement of lower endplate of L1 and upper endplate of L2 vertebrae. Pathological fracture of upper endplate of L2 vertebra. These findings are more progressive compared with the CT findings on 03/20/2025. Also with narrowing of thecal sac at upper L2 level and paravertebral soft tissue inflammation at L1-L2 levels similar to prior study. Neurosurgery consulted and appreciate their help. Recommendations felt condition to be non-surgical but wthey will be called with updated imaging study. Pain control Antibiotic as per ID PT/OT as tolerated. Placement being arranged. patient had repeat CT which showed more progressive compared with the CT findings on 03/20/2025.We will follow Neurosurgery recommendations. pain is not controlled, patient unable to sit in chair or ambulate, continue oxycontin 10 mg Q 12 hours, continue PRN oxycodone and flexeril patient encouraged to ask for PRN pain medications, consider increasing oxycontin dose tomorrow if needed awaiting neurosurgery recommendations after most recent CT lumbar spine (3) Paraspinal abscess: Code(s): M46.20 - Osteomyelitis of vertebra, site unspecified Status: Acute Assessment and Plan: As above (4) Osteomyelitis of lumbar vertebra: Code(s): M46.26 - Osteomyelitis of vertebra, lumbar region Status: Acute Assessment and Plan: As above (5) Ventricular tachycardia seen on site monitor: Code(s): I47.20 - Ventricular tachycardia, unspecified Status: Acute Assessment and Plan: Nonsustained ventricular tachycardia noted on tele. Cardiology consulted and appreciate their help Abnormal stress test in January showing a small region of mild reversible ischemia at the apical anterior, apical lateral and basilar inferolateral segments. Continue with aspirin, Coreg, Lipitor Further ischemic eval depending on symptoms and monitor results as outpatient once bacteremia clears (can be done as an outpatient) Plan to discharge on event monitor for 30 days Outpatient follow-up with Cardiology in 2-4 weeks upon discharge (6) Generalized weakness: Code(s): R53.1 - Weakness Status: Acute Assessment and Plan: Related to above PT/OT (7) Type 2 diabetes mellitus without complications: Code(s): E11.9 - Type 2 diabetes mellitus without complications Status: Acute Assessment and Plan: A1c 6.4% in January. The patient's blood glucose was reviewed on 03/27 Glucose remains mostly well controlled. Continue AccuCheks covering with sliding scale. Hypoglycemia protocol available as needed. Continue to follow (8) Essential (primary) hypertension: Code(s): I10 - Essential (primary) hypertension Status: Acute Assessment and Plan: Patient's blood pressure was reviewed on 03/27 Blood pressure remains well controlled. Will continue to monitor (9) Stasis dermatitis: Code(s): I87.2 - Venous insufficiency (chronic) (peripheral) Status: Acute Assessment and Plan: Chronic venous insufficiency with stasis dermatitis LLE>RLE Possible cellulitis on admission given the resolution of the erythema. Wound care following. Continue Eucerin cream for skin care (10) Pressure ulcer: Code(s): L89.90 - Pressure ulcer of unspecified site, unspecified stage Status: Acute Assessment and Plan: Pressure ulcer noted left buttock Wound care following Off loading Plan Code status: Full DVT prophylaxis: Eliquis Disposition: Needs SNF, CM working on acceptance Subjective Date/time seen: 03/31/25 08:18 Interval history: Patient seen for a follow up visit. Patient lying in bed, in no acute distress. Patient still has back pain limiting movement. Continue Oxycontin and patient encouraged to ask for PRN pain medications. PT/OT ordered. Patient continues on Iv cefepime. Awaiting neurosurgery recommendations. Patient will need SNF on discharge. Review of Systems Review of Systems: All systems reviewed & are unremarkable except as noted in HPI and below Exam Const: General: comfortable and no acute distress Other: Pleasant chronically ill gentleman, obese HENMT: Mouth: Yes moist mucous membranes Eyes: General: appearance normal, both eyes and all related structures Sclera: sclerae normal Pupils: Equal, round and reactive pupils present Neck: Neck: supple and no JVD Resp: Effort & Inspection: normal respiratory effort Auscultation: clear to auscultation bilaterally Cardio: Rate: regular rate Rhythm: regular rhythm GI: Auscultation: normal bowel sounds Skin: Other: chronic venous stasis changes to lower extremities Neuro: Cranial nerves: Yes Equal, round and reactive pupils present Speech: normal speech Other: Unable to evaluate gait, pain with and movement to BLE Extrem: Other: chronic venous stasis changes to BLE, no edema Psych: Mental Status: mental status grossly normal Affect: normal affect Objective Data Vital Signs Vital Signs: Vital Signs - 24 hr 03/30/25 08:39 03/30/25 12:00 03/30/25 14:00 Temperature 97.7 F Pulse Rate 67 74 67 Respiratory Rate 14 Blood Pressure 115/65 Pulse Oximetry 98 03/30/25 16:00 03/30/25 19:54 03/30/25 20:00 Temperature Pulse Rate 69 76 73 Respiratory Rate Blood Pressure Pulse Oximetry 03/30/25 21:06 03/31/25 00:00 03/31/25 04:00 Temperature 97.9 F Pulse Rate 73 69 73 Respiratory Rate 18 Blood Pressure 136/98 H Pulse Oximetry 98 03/31/25 05:48 Temperature 98.7 F Pulse Rate 74 Respiratory Rate 16 Blood Pressure 119/64 Pulse Oximetry 94 Intake/Output Intake/Output: Intake & Output 03/28/25 03/29/25 03/30/25 03/31/25 23:59 23:59 23:59 23:59 Intake Total 880 1370 1630 200 Output Total 1100 1525 200 550 Balance -220 -155 1430 -350 Meds/Results Medications: Active Medications Generic Name Dose Route Start Last Admin Trade Name Freq PRN Reason Stop Dose Admin Acetaminophen 1,000 mg 03/27/25 19:16 03/30/25 13:55 Acetaminophen 500 Mg Tablet PO 1,000 mg Q6HR PRN Administration Mild Pain (1-3) or Fever Apixaban 5 mg 03/13/25 21:00 03/30/25 19:54 Apixaban 5 Mg Tablet PO 5 mg Q12HR EJ Administration Aspirin 81 mg 03/20/25 09:00 03/30/25 08:39 Aspirin 81 Mg Enteric Tablet PO 81 mg QAM EJ Administration Atorvastatin Calcium 10 mg 03/13/25 09:00 03/30/25 08:38 Atorvastatin 10 Mg Tablet PO 10 mg DAILY EJ Administration Carvedilol 6.25 mg 03/19/25 21:00 03/30/25 19:54 Carvedilol 6.25 Mg Tablet PO 6.25 mg Q12HR EJ Administration Cyclobenzaprine HCl 10 mg 03/19/25 16:55 03/30/25 20:56 Cyclobenzaprine Hcl 10 Mg Tablet PO 10 mg Q8H PRN Administration Muscle Spasm Dextrose 12.5 gm 03/13/25 08:49 Dextrose 50% 25 Gm/50 Ml Syringe IV PUSH PRN PRN Hypoglycemia Protocol Furosemide 20 mg 03/13/25 09:00 03/30/25 08:39 Furosemide 20 Mg Tablet PO 20 mg QAM EJ Administration Glucagon 1 mg 03/13/25 08:49 Glucagon For Inj 1 Mg Vial IM PRN PRN Hypoglycemia Protocol Glucose 15 gm 03/13/25 08:49 03/14/25 21:01 Glucose Oral Gel 15 Gm Of Glucse In 37.5 Gm Tube PO 15 gm PRN PRN Administration Hypoglycemia Protocol Dextrose 1,000 mls @ 100 mls/hr 03/13/25 08:49 Dextrose 5% 1,000 Ml IVPB PRN PRN Hypoglycemia Protocol Cefepime HCl 2 gm/ Sodium 50 mls @ 100 mls/hr 03/26/25 22:00 03/31/25 05:47 Chloride IVPB 100 mls/hr Q8H EJ Administration Insulin Aspart 2 - 5 units 03/13/25 12:00 03/30/25 18:05 Insulin Aspart (*Bkc) 100 Units/Ml SUB-Q Not Given TIDWM [facility] Protocol Lidocaine 2 patch 03/14/25 09:00 03/30/25 08:37 Lidocaine 5% Patch TRANSDERM 2 patch DAILY EJ Administration Lisinopril 20 mg 03/13/25 21:00 03/30/25 19:54 Lisinopril 20 Mg Tablet PO 20 mg HS EJ Administration Multi-Ingred Cream/Lotion/Oil/Oint 1 applic 03/24/25 17:00 03/30/25 18:06 Eucerin Cream 120 Gm Jar TOPICAL 1 applic BID EJ Administration Ondansetron HCl 4 mg 03/13/25 08:49 Ondansetron Inj 4 Mg/2 Ml Vial IV PUSH Q6H PRN Nausea And Vomiting Oxycodone HCl 5 mg 03/14/25 13:14 03/30/25 20:56 Oxycodone Hcl (*Crx) 5 Mg Tab Ir PO 5 mg Q4H PRN Administration Pain Rated 6 or Greater Oxycodone HCl 2.5 mg 03/24/25 07:57 03/27/25 11:07 Oxycodone Hcl (*Crx) 2.5 Mg Tab Ir PO 2.5 mg Q4H PRN Administration Pain Rated 5 or Less Oxycodone HCl 10 mg 03/29/25 21:00 03/30/25 19:54 Oxycodone Hcl (*Crx) 10 Mg Tab Sr 12hr PO 10 mg Q12HR EJ Administration Pantoprazole Sodium 40 mg 03/13/25 08:00 03/30/25 08:38 Pantoprazole 40 Mg Tablet PO 40 mg DAILY@0800 [facility] Administration Polyethylene Glycol 17 gm 03/23/25 19:35 03/30/25 08:38 Polyethylene Glycol 3350 17 Gm Powd.Pack PO 17 gm QAM EJ Administration Radiology Results: ITS Impressions Elbow X-Ray 03/13/25 07:04 Impression: 1: No acute bone or joint abnormality. Chest X-Ray 03/13/25 07:05 IMPRESSION: 1: NO ACUTE CARDIOPULMONARY DISEASE. Tibia/Fibula X-Ray 03/13/25 07:06 Impression: 1: Mild-moderate polyarticular osteoarthritis. Lumbar Spine X-Ray 03/14/25 18:51 IMPRESSION: Normal lumbar spine. Ankle Brachial Index 03/19/25 14:34 IMPRESSION: 1. No significant arterial occlusive disease to either lower limb with normal bilateral TBIs. Skull X-Ray 03/20/25 14:40 Impression: No acute fracture or malalignment. Lumbar Spine MRI 03/20/25 18:05 IMPRESSION: 1. Evidence of acute discitis at L1-2 level with osteomyelitis involving L1 and L2 vertebral bodies.Para Vertebral inflammatory changes with microabscesses on both sides. 2. Significant narrowing of the thecal sac at L1-2 level as described above. 3. Findings at other disc levels are described above in detail. Lumbar Spine CT 03/27/25 15:24 IMPRESSION: 1. Destructive process of discitis at L1-2 level is noted with involvement of lower endplate of L1 and upper endplate of L2 vertebrae. Pathological fracture of upper endplate of L2 vertebra. These findings are more progressive compared with the CT findings on 03/20/2025. 2. Narrowing of thecal sac at upper L2 level as described above. 3. Paravertebral soft tissue inflammation at L1-L2 levels similar to prior study. Labs Labs: Laboratory Results - last 24 hr 03/30/25 03/30/25 03/30/25 11:42 16:45 20:01 POC Capillary Glucose 117 H 102 163 H 03/31/25 07:50 POC Capillary Glucose 113 H Quality VTE Prophylaxis VTE prophylaxis: pharmacologic ordered
[2025-03-31] MEDS: ATORVASTATIN 10 MG TABLET PO (09:43)
[2025-03-31] MEDS: LIDOCAINE 5% PATCH 2 PATCH TRANSDERM (09:44)
[2025-03-31] MEDS: PANTOPRAZOLE 40 MG TABLET PO (09:44)
[2025-03-31] MEDS: FUROSEMIDE 20 MG TABLET PO (09:44)
[2025-03-31] MEDS: APIXABAN 5 MG TABLET PO ×2 (09:44→21:32)
[2025-03-31] MEDS: ASPIRIN 81 MG ENTERIC TABLET PO (09:44)
[2025-03-31] MEDS: oxyCODONE HCL (*CRX) 10 MG TAB SR 12HR PO ×2 (09:45→21:32)
[2025-03-31] MEDS: EUCERIN CREAM 120 GM JAR 1 APPLIC TOPICAL ×2 (09:45→18:05)
--- NOTE | 2025-03-31 14:53 | PCPTNOTE ---
for the PT re-evaluation--Still waiting on neurosurgery consult, I spoke with hospitalist, Nuria, about neurosurgery consult and she will look into it again, will complete PT re-evaluation when cleared by neurosurgery
--- NOTE | 2025-03-31 15:24 | PCOTNOTE ---
Still waiting on neurosurgery consult, IPTspoke with hospitalist, Nuria, about neurosurgery consult and she will look into it again, will complete OT re-evaluation when cleared by neurosurgery
[2025-03-31] MEDS: ACETAMINOPHEN 500 MG TABLET 1000 MG PO (16:12)
[2025-04-01] VITALS (9 sets, daily range): BP systolic 108–123; BP diastolic 55–61; PULSE 76–98; RESP 18–20; TEMP 36.2–36.5; O2SAT 92–98
[2025-04-01] MEDS: oxyCODONE HCL (*CRX) 5 MG TAB IR PO ×4 (03:28→21:29)
[2025-04-01] MEDS: CYCLOBENZAPRINE HCL 10 MG TABLET PO ×2 (03:29→12:08)
[2025-04-01] MEDS: CEFEPIME 2 GM in SODIUM CHLORIDE 0.9% IV 50 ML 100 ML IVPB ×3 (05:52→23:03)
[2025-04-01 06:32] LABS: Hematocrit 36.4 % (42.0-52.0); Hemoglobin 10.9 g/dL (14.0-18.0); Immature Granulocyte Percent A 0.5 % (0-0.5); Lymphocytes Absolute Auto 1.98 K/mm3 (0.9-3.2); Mean Corpuscular HGB Conc 29.9 g/dl (32-36); Mean Corpuscular Hemoglobin 23.5 pg (26-34); Mean Corpuscular Volume 78.4 fl (80-100); Nucleated Red Blood Cells Absolute Auto 0.000 K/mm3 (0.0-0.012); Nucleated Red Blood Cells Perc 0.0 % (0.0-0.2); Platelet Count Result 461 k/mm3 (150-375); Red Blood Count 4.64 M/mm3 (4.6-6.20); White Blood Count 8.6 K/mm3 (4.5-10.0)
[2025-04-01 07:01] LABS: Hypochromasia 1+
[2025-04-01 07:02] LABS: Anisocytosis 1+; Target Cells 1+
[2025-04-01 07:03] LABS: Schistocytes None Seen
--- NOTE | 2025-04-01 07:11 | P.PNIM_ITS ---
Progress Note: A&P Assessment and Plan (1) Septicemia: Code(s): A41.9 - Sepsis, unspecified organism Status: Acute Assessment and Plan: Patient presented to the ED with complaints of fall at home and worsening weakness and noted to have LLE draining wound, possibly cellulitis. He was started on Vancomycin, Cefepime and Flagyl. WCx: Morganella sensitive to bactrim, cipro, zosyn. BCx (03/13) MSSA BCx (03/15) MSSA one aerobic bottle only TTE 03/17 showing no vegetations. Abx changed to Cefazolin/Bactrim PO on 03/17/25. 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 (2) Septic discitis of lumbar region: Code(s): M46.46 - Discitis, unspecified, lumbar region Status: Acute Assessment and Plan: Patient has been having increasing back pain since October. Lumbar spine CT 03/20 showing an aggressive process at the L1-2 interspace likely involving discitis, osteomyelitis of both vertebral bodies, and paraspinal phlegmon/developing abscess with possible epidural involvement as well. Lumbar MRI 03/20 showing evidence of acute discitis at L1-2 level with osteomyelitis involving L1 and L2 vertebral bodies, para-vertebral inflammatory changes with microabscesses on both sides and significant narrowing of the thecal sac at L1-2 level Repeat Lumbar spine CT 03/27 showing destructive process of discitis at L1-2 level with involvement of lower endplate of L1 and upper endplate of L2 vertebrae. Pathological fracture of upper endplate of L2 vertebra. These findings are more progressive compared with the CT findings on 03/20/2025. Also with narrowing of thecal sac at upper L2 level and paravertebral soft tissue inflammation at L1-L2 levels similar to prior study. Neurosurgery consulted and appreciate their help. Recommendations felt condition to be non-surgical but wthey will be called with updated imaging study. Pain control Antibiotic as per ID PT/OT as tolerated. Placement being arranged. patient had repeat CT which showed more progressive compared with the CT findings on 03/20/2025.We will follow Neurosurgery recommendations. discussed with Dr. Ryan patient new CT results and he recommends activity as patient tolerates, he should wear his brace when out of bed to help with pain control, physical therapy updated to evaluate patient again. patient's pain not controlled, increase oxycontin to 20 mg BID and one time order for IV morphine 2 mg given discussed with nurse and at bedside (3) Paraspinal abscess: Code(s): M46.20 - Osteomyelitis of vertebra, site unspecified Status: Acute Assessment and Plan: As above (4) Osteomyelitis of lumbar vertebra: Code(s): M46.26 - Osteomyelitis of vertebra, lumbar region Status: Acute Assessment and Plan: As above (5) Ventricular tachycardia seen on dice dealer: Code(s): I47.20 - Ventricular tachycardia, unspecified Status: Acute Assessment and Plan: Nonsustained ventricular tachycardia noted on tele. Cardiology consulted and appreciate their help Abnormal stress test in January showing a small region of mild reversible ischemia at the apical anterior, apical lateral and basilar inferolateral segments. Continue with aspirin, Coreg, Lipitor Further ischemic eval depending on symptoms and monitor results as outpatient once bacteremia clears (can be done as an outpatient) Plan to discharge on event monitor for 30 days Outpatient follow-up with Cardiology in 2-4 weeks upon discharge (6) Generalized weakness: Code(s): R53.1 - Weakness Status: Acute Assessment and Plan: Related to above PT/OT (7) Type 2 diabetes mellitus without complications: Code(s): E11.9 - Type 2 diabetes mellitus without complications Status: Acute Assessment and Plan: A1c 6.4% in January. The patient's blood glucose was reviewed on 03/27 Glucose remains mostly well controlled. Continue AccuCheks covering with sliding scale. Hypoglycemia protocol available as needed. Continue to follow (8) Essential (primary) hypertension: Code(s): I10 - Essential (primary) hypertension Status: Acute Assessment and Plan: Patient's blood pressure was reviewed on 03/27 Blood pressure remains well controlled. Will continue to monitor (9) Stasis dermatitis: Code(s): I87.2 - Venous insufficiency (chronic) (peripheral) Status: Acute Assessment and Plan: Chronic venous insufficiency with stasis dermatitis LLE>RLE Possible cellulitis on admission given the resolution of the erythema. Wound care following. Continue Eucerin cream for skin care (10) Pressure ulcer: Code(s): L89.90 - Pressure ulcer of unspecified site, unspecified stage Status: Acute Assessment and Plan: Pressure ulcer noted left buttock Wound care following Off loading Plan Code status: Full DVT prophylaxis: Eliquis Disposition: Needs SNF, CM working on acceptance Subjective Date/time seen: 04/01/25 07:11 Interval history: Patient seen for a follow up visit. Patient lying in bed, in acute distress from pain during my visit. Patient had already received his oxycontin 10 mg and oxycodone IR 5 mg with no relief. One time order for morphine 2 mg IV and oxycontin 10 mg x 1 given to nurse. Increase oxycontin dose to 20 mg BID. I discussed the patient's CT results from 03/27/[address] Ryan and patient has no restrictions for activity. He recommended for patient to wear his brace when out of bed to help with pain control. Physical therapy updated. Patient continues on IV cefepime. Review of Systems Review of Systems: All systems reviewed & are unremarkable except as noted in HPI and below Exam Const: General: comfortable and no acute distress Other: Pleasant chronically ill gentleman, obese HENMT: Mouth: Yes moist mucous membranes Eyes: General: appearance normal, both eyes and all related structures Sclera: sclerae normal Pupils: Equal, round and reactive pupils present Neck: Neck: supple and no JVD Resp: Effort & Inspection: normal respiratory effort Auscultation: clear to auscultation bilaterally Cardio: Rate: regular rate Rhythm: regular rhythm GI: Auscultation: normal bowel sounds Skin: Other: chronic venous stasis changes to lower extremities Neuro: Cranial nerves: Yes Equal, round and reactive pupils present Speech: normal speech Other: Unable to evaluate gait, pain with and movement to BLE Extrem: Other: chronic venous stasis changes to BLE, no edema Psych: Mental Status: mental status grossly normal Affect: normal affect Objective Data Vital Signs Vital Signs: Vital Signs - 24 hr 03/31/25 08:00 03/31/25 12:00 03/31/25 14:00 Temperature 98.4 F Pulse Rate 70 67 Respiratory Rate 16 Blood Pressure 132/55 L Pulse Oximetry 100 Oxygen Delivery Room Air 03/31/25 16:00 03/31/25 20:00 03/31/25 20:00 Temperature Pulse Rate 70 76 76 Respiratory Rate 18 Blood Pressure Pulse Oximetry 97 Oxygen Delivery Room Air 03/31/25 21:32 03/31/25 21:37 03/31/25 22:52 Temperature 98.6 F Pulse Rate 76 76 Respiratory Rate 18 Blood Pressure 118/60 Pulse Oximetry 97 97 Oxygen Delivery Room Air 04/01/25 00:00 04/01/25 04:00 Temperature Pulse Rate 76 79 Respiratory Rate Blood Pressure Pulse Oximetry Oxygen Delivery Intake/Output Intake/Output: Intake & Output 03/29/25 03/30/25 03/31/25 04/01/25 23:59 23:59 23:59 23:59 Intake Total 1370 1630 1040 50 Output Total 1525 200 550 Balance -155 1430 490 50 Meds/Results Medications: Active Medications Generic Name Dose Route Start Last Admin Trade Name Freq PRN Reason Stop Dose Admin Acetaminophen 1,000 mg 03/27/25 19:16 03/31/25 16:12 Acetaminophen 500 Mg Tablet PO 1,000 mg Q6HR PRN Administration Mild Pain (1-3) or Fever Apixaban 5 mg 03/13/25 21:00 03/31/25 21:32 Apixaban 5 Mg Tablet PO 5 mg Q12HR EJ Administration Aspirin 81 mg 03/20/25 09:00 03/31/25 09:44 Aspirin 81 Mg Enteric Tablet PO 81 mg QAM EJ Administration Atorvastatin Calcium 10 mg 03/13/25 09:00 03/31/25 09:43 Atorvastatin 10 Mg Tablet PO 10 mg DAILY EJ Administration Carvedilol 6.25 mg 03/19/25 21:00 03/31/25 21:32 Carvedilol 6.25 Mg Tablet PO 6.25 mg Q12HR EJ Administration Cyclobenzaprine HCl 10 mg 03/19/25 16:55 04/01/25 03:29 Cyclobenzaprine Hcl 10 Mg Tablet PO 10 mg Q8H PRN Administration Muscle Spasm Dextrose 12.5 gm 03/13/25 08:49 Dextrose 50% 25 Gm/50 Ml Syringe IV PUSH PRN PRN Hypoglycemia Protocol Furosemide 20 mg 03/13/25 09:00 03/31/25 09:44 Furosemide 20 Mg Tablet PO 20 mg QAM EJ Administration Glucagon 1 mg 03/13/25 08:49 Glucagon For Inj 1 Mg Vial IM PRN PRN Hypoglycemia Protocol Glucose 15 gm 03/13/25 08:49 03/14/25 21:01 Glucose Oral Gel 15 Gm Of Glucse In 37.5 Gm Tube PO 15 gm PRN PRN Administration Hypoglycemia Protocol Dextrose 1,000 mls @ 100 mls/hr 03/13/25 08:49 Dextrose 5% 1,000 Ml IVPB PRN PRN Hypoglycemia Protocol Cefepime HCl 2 gm/ Sodium 50 mls @ 100 mls/hr 03/26/25 22:00 04/01/25 06:22 Chloride IVPB Infused Q8H EJ Infusion Insulin Aspart 2 - 5 units 03/13/25 12:00 03/31/25 16:45 Insulin Aspart (*Bkc) 100 Units/Ml SUB-Q Not Given TIDWM [facility] Protocol Lidocaine 2 patch 03/14/25 09:00 03/31/25 09:44 Lidocaine 5% Patch TRANSDERM 2 patch DAILY EJ Administration Lisinopril 20 mg 03/13/25 21:00 03/31/25 21:32 Lisinopril 20 Mg Tablet PO 20 mg HS EJ Administration Multi-Ingred Cream/Lotion/Oil/Oint 1 applic 03/24/25 17:00 03/31/25 18:05 Eucerin Cream 120 Gm Jar TOPICAL 1 applic BID EJ Administration Ondansetron HCl 4 mg 03/13/25 08:49 Ondansetron Inj 4 Mg/2 Ml Vial IV PUSH Q6H PRN Nausea And Vomiting Oxycodone HCl 5 mg 03/14/25 13:14 04/01/25 03:28 Oxycodone Hcl (*Crx) 5 Mg Tab Ir PO 5 mg Q4H PRN Administration Pain Rated 6 or Greater Oxycodone HCl 2.5 mg 03/24/25 07:57 03/27/25 11:07 Oxycodone Hcl (*Crx) 2.5 Mg Tab Ir PO 2.5 mg Q4H PRN Administration Pain Rated 5 or Less Oxycodone HCl 10 mg 03/29/25 21:00 03/31/25 21:32 Oxycodone Hcl (*Crx) 10 Mg Tab Sr 12hr PO 10 mg Q12HR EJ Administration Pantoprazole Sodium 40 mg 03/13/25 08:00 03/31/25 09:44 Pantoprazole 40 Mg Tablet PO 40 mg DAILY@0800 EJ Administration Polyethylene Glycol 17 gm 03/23/25 19:35 03/31/25 09:43 Polyethylene Glycol 3350 17 Gm Powd.Pack PO 17 gm QAM EJ Administration Radiology Results: ITS Impressions Elbow X-Ray 03/13/25 07:04 Impression: 1: No acute bone or joint abnormality. Chest X-Ray 03/13/25 07:05 IMPRESSION: 1: NO ACUTE CARDIOPULMONARY DISEASE. Tibia/Fibula X-Ray 03/13/25 07:06 Impression: 1: Mild-moderate polyarticular osteoarthritis. Lumbar Spine X-Ray 03/14/25 18:51 IMPRESSION: Normal lumbar spine. Ankle Brachial Index 03/19/25 14:34 IMPRESSION: 1. No significant arterial occlusive disease to either lower limb with normal bilateral TBIs. Skull X-Ray 03/20/25 14:40 Impression: No acute fracture or malalignment. Lumbar Spine MRI 03/20/25 18:05 IMPRESSION: 1. Evidence of acute discitis at L1-2 level with osteomyelitis involving L1 and L2 vertebral bodies.Para Vertebral inflammatory changes with microabscesses on both sides. 2. Significant narrowing of the thecal sac at L1-2 level as described above. 3. Findings at other disc levels are described above in detail. Lumbar Spine CT 03/27/25 15:24 IMPRESSION: 1. Destructive process of discitis at L1-2 level is noted with involvement of lower endplate of L1 and upper endplate of L2 vertebrae. Pathological fracture of upper endplate of L2 vertebra. These findings are more progressive compared with the CT findings on 03/20/2025. 2. Narrowing of thecal sac at upper L2 level as described above. 3. Paravertebral soft tissue inflammation at L1-L2 levels similar to prior study. Labs Labs: Laboratory Results - last 24 hr 03/31/25 03/31/25 03/31/25 07:50 11:23 16:37 WBC RBC Hgb Hct MCV MCH MCHC RDW Plt Count MPV Immature Gran % (Auto) Neut % (Auto) Lymph % (Auto) [place] % (Auto) Eos % (Auto) Baso % (Auto) Lymph # (Auto) [place] # (Auto) Eos # (Auto) Baso # (Auto) Abs Immat Gran (auto) Absolute Neuts (auto) Absolute Nucleated RBC Band Neutrophils % Nucleated RBC % Platelet Estimate Hypochromasia Anisocytosis Target Cells Schistocytes POC Capillary Glucose 113 H 148 H 119 H 03/31/25 04/01/25 20:28 06:20 WBC 8.6 RBC 4.64 Hgb 10.9 L Hct 36.4 L MCV 78.4 L MCH 23.5 L MCHC 29.9 L RDW 22.7 H Plt Count 461 H MPV 8.7 Immature Gran % (Auto) 0.5 Neut % (Auto) 60.5 Lymph % (Auto) 23.1 [place] % (Auto) 9.5 H Eos % (Auto) 5.3 H Baso % (Auto) 1.1 Lymph # (Auto) 1.98 [place] # (Auto) 0.8 H Eos # (Auto) 0.5 H Baso # (Auto) 0.1 Abs Immat Gran (auto) 0.04 H Absolute Neuts (auto) 5.2 Absolute Nucleated RBC 0.000 Band Neutrophils % Not Reportable Nucleated RBC % 0.0 Platelet Estimate Adequate Hypochromasia 1+ Anisocytosis 1+ Target Cells 1+ Schistocytes None seen POC Capillary Glucose 187 H Quality VTE Prophylaxis VTE prophylaxis: pharmacologic ordered
[2025-04-01 07:51] LABS: Alanine Aminotransferase 34 U/L (6-50); Albumin Level 3.7 g/dL (3.5-5.1); Alkaline Phosphatase 119 U/L (38-126); Anion Gap 4 mmol/L (4-12); Aspartate Amino Transferase 45 U/L (17-59); Bilirubin,Total 0.5 mg/dL (0.2-1.3); Blood Urea Nitrogen 12 mg/dL (9-20); Calcium 9.5 mg/dL (8.4-10.2); Carbon Dioxide 29 mmol/L (22-30); Chloride 101 mmol/L (98-107); Estimated CRCL calculation 166 ml/min; Estimated Glomerular Filt Rate > 60; Glucose 121 mg/dL (65-110); Potassium 4.6 mmol/L (3.4-5.0); Sodium 134 mmol/L (137-145); Total Protein 8.4 g/dL (6.3-8.2)
[2025-04-01] MEDS: ASPIRIN 81 MG ENTERIC TABLET PO (08:29)
[2025-04-01] MEDS: PANTOPRAZOLE 40 MG TABLET PO (08:29)
[2025-04-01] MEDS: LIDOCAINE 5% PATCH 2 PATCH TRANSDERM (08:29)
[2025-04-01] MEDS: ATORVASTATIN 10 MG TABLET PO (08:29)
[2025-04-01] MEDS: FUROSEMIDE 20 MG TABLET PO (08:29)
[2025-04-01] MEDS: APIXABAN 5 MG TABLET PO ×2 (08:30→20:14)
[2025-04-01] MEDS: oxyCODONE HCL (*CRX) 10 MG TAB SR 12HR PO ×2 (08:30→09:59)
[2025-04-01] MEDS: EUCERIN CREAM 120 GM JAR 1 APPLIC TOPICAL (08:32)
[2025-04-01] MEDS: MORPHINE SULFATE (*CRX) 4 MG/ML INJ 2 MG IV PUSH (10:00)
[2025-04-01] MEDS: ACETAMINOPHEN 500 MG TABLET 1000 MG PO (12:08)
[2025-04-01] MEDS: oxyCODONE HCL (*CRX) 20 MG TAB SR 12HR PO (20:14)
[2025-04-02] VITALS (11 sets, daily range): BP systolic 103–111; BP diastolic 47–63; PULSE 66–89; RESP 18; TEMP 36.2–36.6; O2SAT 96–97
[2025-04-02] MEDS: CEFEPIME 2 GM in SODIUM CHLORIDE 0.9% IV 50 ML 100 ML IVPB ×3 (05:30→21:41)
[2025-04-02] MEDS: APIXABAN 5 MG TABLET PO ×2 (08:07→20:23)
[2025-04-02] MEDS: PANTOPRAZOLE 40 MG TABLET PO (08:07)
[2025-04-02] MEDS: FUROSEMIDE 20 MG TABLET PO (08:07)
[2025-04-02] MEDS: ASPIRIN 81 MG ENTERIC TABLET PO (08:07)
[2025-04-02] MEDS: oxyCODONE HCL (*CRX) 20 MG TAB SR 12HR PO ×2 (08:07→20:23)
[2025-04-02] MEDS: ATORVASTATIN 10 MG TABLET PO (08:07)
[2025-04-02] MEDS: LIDOCAINE 5% PATCH 2 PATCH TRANSDERM (08:09)
[2025-04-02] MEDS: EUCERIN CREAM 120 GM JAR 1 APPLIC TOPICAL ×2 (08:10→17:37)
[2025-04-02] MEDS: oxyCODONE HCL (*CRX) 5 MG TAB IR PO ×2 (09:34→13:35)
--- NOTE | 2025-04-02 10:18 | P.PNIM_ITS ---
Assessment and Plan Assessment and Plan (1) Septicemia: Code(s): A41.9 - Sepsis, unspecified organism Status: Acute Assessment and Plan: Patient presented to the ED with complaints of fall at home and worsening weakness and noted to have LLE draining wound, possibly cellulitis. He was started on Vancomycin, Cefepime and Flagyl. WCx: Morganella sensitive to bactrim, cipro, zosyn. BCx (03/13) MSSA BCx (03/15) MSSA one aerobic bottle only TTE 03/17 showing no vegetations. Abx changed to Cefazolin/Bactrim PO on 03/17/25. 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 (2) Septic discitis of lumbar region: Code(s): M46.46 - Discitis, unspecified, lumbar region Status: Acute Assessment and Plan: Patient has been having increasing back pain since October. Lumbar spine CT 03/20 showing an aggressive process at the L1-2 interspace likely involving discitis, osteomyelitis of both vertebral bodies, and paraspinal phlegmon/developing abscess with possible epidural involvement as well. Lumbar MRI 03/20 showing evidence of acute discitis at L1-2 level with osteomyelitis involving L1 and L2 vertebral bodies, para-vertebral inflammatory changes with microabscesses on both sides and significant narrowing of the thecal sac at L1-2 level Repeat Lumbar spine CT 03/27 showing destructive process of discitis at L1-2 level with involvement of lower endplate of L1 and upper endplate of L2 vertebrae. Pathological fracture of upper endplate of L2 vertebra. These findings are more progressive compared with the CT findings on 03/20/2025. Also with narrowing of thecal sac at upper L2 level and paravertebral soft tissue inflammation at L1-L2 levels similar to prior study. Neurosurgery consulted and appreciate their help. Recommendations felt condition to be non-surgical but wthey will be called with updated imaging study. Pain control Antibiotic as per ID PT/OT as tolerated. Placement being arranged. patient had repeat CT which showed more progressive compared with the CT findings on 03/20/2025.We will follow Neurosurgery recommendations. discussed with Dr. Ryan patient new CT results and he recommends activity as patient tolerates, he should wear his brace when out of bed to help with pain control, physical therapy updated to evaluate patient again. continue oxycontin 20 mg BID encourage patient to use PRN oxycodone and flexeril for additional pain relief (3) Paraspinal abscess: Code(s): M46.20 - Osteomyelitis of vertebra, site unspecified Status: Acute Assessment and Plan: As above (4) Osteomyelitis of lumbar vertebra: Code(s): M46.26 - Osteomyelitis of vertebra, lumbar region Status: Acute Assessment and Plan: As above (5) Ventricular tachycardia seen on color television console monitor: Code(s): I47.20 - Ventricular tachycardia, unspecified Status: Acute Assessment and Plan: Nonsustained ventricular tachycardia noted on tele. Cardiology consulted and appreciate their help Abnormal stress test in January showing a small region of mild reversible ischemia at the apical anterior, apical lateral and basilar inferolateral segments. Continue with aspirin, Coreg, Lipitor Further ischemic eval depending on symptoms and monitor results as outpatient once bacteremia clears (can be done as an outpatient) Plan to discharge on event monitor for 30 days Outpatient follow-up with Cardiology in 2-4 weeks upon discharge (6) Generalized weakness: Code(s): R53.1 - Weakness Status: Acute Assessment and Plan: Related to above PT/OT (7) Type 2 diabetes mellitus without complications: Code(s): E11.9 - Type 2 diabetes mellitus without complications Status: Acute Assessment and Plan: A1c 6.4% in January. The patient's blood glucose was reviewed on 03/27 Glucose remains mostly well controlled. Continue AccuCheks covering with sliding scale. Hypoglycemia protocol available as needed. Continue to follow (8) Essential (primary) hypertension: Code(s): I10 - Essential (primary) hypertension Status: Acute Assessment and Plan: Patient's blood pressure was reviewed on 03/27 Blood pressure remains well controlled. Will continue to monitor (9) Stasis dermatitis: Code(s): I87.2 - Venous insufficiency (chronic) (peripheral) Status: Acute Assessment and Plan: Chronic venous insufficiency with stasis dermatitis LLE>RLE Possible cellulitis on admission given the resolution of the erythema. Wound care following. Continue Eucerin cream for skin care (10) Pressure ulcer: Code(s): L89.90 - Pressure ulcer of unspecified site, unspecified stage Status: Acute Assessment and Plan: Pressure ulcer noted left buttock Wound care following Off loading Plan Code status: Full DVT prophylaxis: Eliquis Disposition: Needs SNF, CM working on acceptance Subjective Date/time seen: 04/02/25 10:18 Interval history: Patient seen for a follow up visit. Patient lying in bed, in no acute distress. Patient reports pain that worsens with any type of movement or rolling. Patient encouraged to use PRN oxycodone in addition to scheduled pain medication. Patient getting ready to work with physical therapy. Patient continues on IV cefepime. Patient will need placement on discharge. Patient will need a line placed before discharge. Review of Systems Review of Systems: All systems reviewed & are unremarkable except as noted in HPI and below Exam Const: General: comfortable and no acute distress Other: Pleasant chronically ill gentleman, obese HENMT: Mouth: Yes moist mucous membranes Eyes: General: appearance normal, both eyes and all related structures Sclera: sclerae normal Pupils: Equal, round and reactive pupils present Neck: Neck: supple and no JVD Resp: Effort & Inspection: normal respiratory effort Auscultation: clear to auscultation bilaterally Cardio: Rate: regular rate and tachycardic Rhythm: regular rhythm GI: Auscultation: normal bowel sounds Skin: General skin exam: dry skin, erythema (LLE ) and excoriation Other: chronic venous stasis changes to lower extremities Neuro: Cranial nerves: Yes Equal, round and reactive pupils present Speech: normal speech Other: Unable to evaluate gait, pain with and movement to BLE Extrem: General: edema (RLE >LLE 2+) bilateral Other: chronic venous stasis changes to BLE, no edema Psych: Mental Status: mental status grossly normal Affect: normal affect Objective Data Vital Signs Vital Signs: Vital Signs - 24 hr 04/01/25 12:00 04/01/25 13:15 04/01/25 13:33 Temperature 97.7 F Pulse Rate 76 79 Respiratory Rate 20 Blood Pressure 108/55 L Pulse Oximetry 92 Oxygen Delivery Room Air 04/01/25 13:58 04/01/25 14:51 04/01/25 16:00 Temperature Pulse Rate 98 Respiratory Rate Blood Pressure Pulse Oximetry 93 Oxygen Delivery Room Air Room Air 04/01/25 20:00 04/01/25 21:56 04/02/25 00:00 Temperature 97.2 F L Pulse Rate 87 86 85 Respiratory Rate 18 Blood Pressure 123/61 Pulse Oximetry 98 Oxygen Delivery 04/02/25 04:00 04/02/25 06:00 04/02/25 08:00 Temperature 97.8 F Pulse Rate 74 73 Respiratory Rate 18 Blood Pressure 111/63 Pulse Oximetry 96 Oxygen Delivery Room Air 04/02/25 08:00 04/02/25 08:07 Temperature Pulse Rate 73 72 Respiratory Rate Blood Pressure Pulse Oximetry Oxygen Delivery Intake/Output Intake/Output: Intake & Output 03/30/25 03/31/25 04/01/25 04/02/25 23:59 23:59 23:59 23:59 Intake Total 1630 1040 1530 550 Output Total 200 307 447 9211 Balance 1430 490 730 -450 Meds/Results Medications: Active Medications Generic Name Dose Route Start Last Admin Trade Name Freq PRN Reason Stop Dose Admin Acetaminophen 1,000 mg 03/27/25 19:16 04/01/25 12:08 Acetaminophen 500 Mg Tablet PO 1,000 mg Q6HR PRN Administration Mild Pain (1-3) or Fever Apixaban 5 mg 03/13/25 21:00 04/02/25 08:07 Apixaban 5 Mg Tablet PO 5 mg Q12HR EJ Administration Aspirin 81 mg 03/20/25 09:00 04/02/25 08:07 Aspirin 81 Mg Enteric Tablet PO 81 mg QAM EJ Administration Atorvastatin Calcium 10 mg 03/13/25 09:00 04/02/25 08:07 Atorvastatin 10 Mg Tablet PO 10 mg DAILY EJ Administration Carvedilol 6.25 mg 03/19/25 21:00 04/02/25 08:07 Carvedilol 6.25 Mg Tablet PO 6.25 mg Q12HR EJ Administration Cyclobenzaprine HCl 10 mg 03/19/25 16:55 04/01/25 12:08 Cyclobenzaprine Hcl 10 Mg Tablet PO 10 mg Q8H PRN Administration Muscle Spasm Dextrose 12.5 gm 03/13/25 08:49 Dextrose 50% 25 Gm/50 Ml Syringe IV PUSH PRN PRN Hypoglycemia Protocol Furosemide 20 mg 03/13/25 09:00 04/02/25 08:07 Furosemide 20 Mg Tablet PO 20 mg QAM EJ Administration Glucagon 1 mg 03/13/25 08:49 Glucagon For Inj 1 Mg Vial IM PRN PRN Hypoglycemia Protocol Glucose 15 gm 03/13/25 08:49 03/14/25 21:01 Glucose Oral Gel 15 Gm Of Glucse In 37.5 Gm Tube PO 15 gm PRN PRN Administration Hypoglycemia Protocol Dextrose 1,000 mls @ 100 mls/hr 03/13/25 08:49 Dextrose 5% 1,000 Ml IVPB PRN PRN Hypoglycemia Protocol Cefepime HCl 2 gm/ Sodium 50 mls @ 100 mls/hr 03/26/25 22:00 04/02/25 06:02 Chloride IVPB Infused Q8H EJ Infusion Insulin Aspart 2 - 5 units 03/13/25 12:00 04/02/25 08:08 Insulin Aspart (*Bkc) 100 Units/Ml SUB-Q Not Given TIDWM PENDING SALE TO [facility] Protocol Lidocaine 2 patch 03/14/25 09:00 04/02/25 08:09 Lidocaine 5% Patch TRANSDERM 2 patch DAILY EJ Administration Lisinopril 20 mg 03/13/25 21:00 04/01/25 20:15 Lisinopril 20 Mg Tablet PO 20 mg HS EJ Administration Multi-Ingred Cream/Lotion/Oil/Oint 1 applic 03/24/25 17:00 04/02/25 08:10 Eucerin Cream 120 Gm Jar TOPICAL 1 applic BID EJ Administration Ondansetron HCl 4 mg 03/13/25 08:49 Ondansetron Inj 4 Mg/2 Ml Vial IV PUSH Q6H PRN Nausea And Vomiting Oxycodone HCl 5 mg 03/14/25 13:14 04/02/25 09:34 Oxycodone Hcl (*Crx) 5 Mg Tab Ir PO 5 mg Q4H PRN Administration Pain Rated 6 or Greater Oxycodone HCl 2.5 mg 03/24/25 07:57 03/27/25 11:07 Oxycodone Hcl (*Crx) 2.5 Mg Tab Ir PO 2.5 mg Q4H PRN Administration Pain Rated 5 or Less Oxycodone HCl 20 mg 04/01/25 21:00 04/02/25 08:07 Oxycodone Hcl (*Crx) 20 Mg Tab Sr 12hr PO 20 mg Q12HR EJ Administration Pantoprazole Sodium 40 mg 03/13/25 08:00 04/02/25 08:07 Pantoprazole 40 Mg Tablet PO 40 mg DAILY@0800 [facility] TO [facility] Administration Polyethylene Glycol 17 gm 03/23/25 19:35 04/02/25 08:07 Polyethylene Glycol 3350 17 Gm Powd.Pack PO 17 gm QAM [facility] Administration Radiology Results: ITS Impressions Elbow X-Ray 03/13/25 07:04 Impression: 1: No acute bone or joint abnormality. Chest X-Ray 03/13/25 07:05 IMPRESSION: 1: NO ACUTE CARDIOPULMONARY DISEASE. Tibia/Fibula X-Ray 03/13/25 07:06 Impression: 1: Mild-moderate polyarticular osteoarthritis. Lumbar Spine X-Ray 03/14/25 18:51 IMPRESSION: Normal lumbar spine. Ankle Brachial Index 03/19/25 14:34 IMPRESSION: 1. No significant arterial occlusive disease to either lower limb with normal bilateral TBIs. Skull X-Ray 03/20/25 14:40 Impression: No acute fracture or malalignment. Lumbar Spine MRI 03/20/25 18:05 IMPRESSION: 1. Evidence of acute discitis at L1-2 level with osteomyelitis involving L1 and L2 vertebral bodies.Para Vertebral inflammatory changes with microabscesses on both sides. 2. Significant narrowing of the thecal sac at L1-2 level as described above. 3. Findings at other disc levels are described above in detail. Lumbar Spine CT 03/27/25 15:24 IMPRESSION: 1. Destructive process of discitis at L1-2 level is noted with involvement of lower endplate of L1 and upper endplate of L2 vertebrae. Pathological fracture of upper endplate of L2 vertebra. These findings are more progressive compared with the CT findings on 03/20/2025. 2. Narrowing of thecal sac at upper L2 level as described above. 3. Paravertebral soft tissue inflammation at L1-L2 levels similar to prior study. Labs Labs: Laboratory Results - last 24 hr 04/01/25 04/01/25 04/01/25 11:12 16:29 20:25 POC Capillary Glucose 161 H 179 H 154 H 04/02/25 07:47 POC Capillary Glucose 127 H Quality VTE Prophylaxis VTE prophylaxis: pharmacologic ordered
--- NOTE | 2025-04-02 11:02 | PCNFU ---
Nutrition Follow-Up Complete: Inadequate protein intake related to increased protein energy needs for skin, as evidenced by mild muscle wasting and medication induced weight loss of 60 lb, 18%/6 months Goal:Intakes >75% Pt progressing towards goal, continue with same goal Pt current nutrition is Diabetic, Gluerna shakes BID. Nutrition recommendation: Add a stool softner Last recorded weight is 124.6 kg. Bowel Motility: +BM 03/29 Labs Reviewed: Hgb:10.9, HCt:36.3, NA:134, Cr:0.49, Glu:154 Meds Noted: lasix, prontonix, eliquis, KCL Skin: cellulitis Additional Notes: Pt continues on a diabetic diet, intake varied 25-100%. Gluerna shakes BID in place. Noted no BM since 03/29 - nursing aware, started on miralax. Monitoring intakes, weights, labs, skin, supplement tolerance, plan of care Follow up in 7 days
--- NOTE | 2025-04-02 12:39 | WPDNEUROSGPN ---
Progress Note: A&P Assessment and Plan (1) Osteomyelitis of lumbar vertebra: Code(s): M46.26 - Osteomyelitis of vertebra, lumbar region Status: Acute Plan Patient with L1-L2 diskitis and osteomyelitis with L2 pathologic fracture and bony destruction being treated with IV antibiotics. - No current plan for surgical intervention - continue antibiotic per ID /Medicine - Pain control - PT/OT for mobility. Out bed for meals when possible. - TLSO when out of bed - please call for changes in neurologic status Discussed with Dr. Ryan, who is in agreement Subjective Date/time seen: 04/02/25 12:39 Interval history: Patient continues to endorse low back pain and spasms as well as right anterior thigh pain. He states that overall, his pain is better than it was last week but is currently endorsing severe intermittent spasms which worsened after slipping/sitting aggressively into the chair earlier. He states he did not actually fall, he just sat down quickly. He has been getting up daily with PT and has been wearing the brace. He does not feel like the brace helps much with the pain. He does not have any radiating leg pain but does have pain and tenderness to palpation in his right anterior thigh which he states feels muscular from being in bed. He denies lower extremity numbness or tingling, saddle anesthesia, or bowel/ bladder incontinence. His legs feel diffusely weak but he denies focal motor deficit. He continues with antibiotics. CT lumbar spine 03/27/2025 demonstrated mildly progressive destruction at L1-L2. Pathologic fracture not significantly changed. No change in the degree canal stenosis. Exam Narrative: A&O x4. Calm, cooperative, no acute distress. Is having intermittent spasms in the lower back with visible discomfort. Exam limited by spasms on manual testing. Is able to move both legs and dorsiflexion/plantar flexion 5/5 bilaterally. Sensation to light touch intact. Cranial nerves intact. EOM. Facial movements symmetric. Facial sensation intact. Tongue protrudes at midline. Shoulder shrug symmetric. No drift. Objective Data Vital Signs Vital Signs: Vital Signs - 24 hr 04/01/25 13:15 04/01/25 13:33 04/01/25 13:58 Temperature 97.7 F Pulse Rate 79 Respiratory Rate 20 Blood Pressure 108/55 L Pulse Oximetry 92 Oxygen Delivery Room Air Room Air 04/01/25 14:51 04/01/25 16:00 04/01/25 20:00 Temperature Pulse Rate 98 87 Respiratory Rate Blood Pressure Pulse Oximetry 93 Oxygen Delivery Room Air 04/01/25 21:56 04/02/25 00:00 04/02/25 04:00 Temperature 97.2 F L Pulse Rate 86 85 74 Respiratory Rate 18 Blood Pressure 123/61 Pulse Oximetry 98 Oxygen Delivery 04/02/25 06:00 04/02/25 08:00 04/02/25 08:00 Temperature 97.8 F Pulse Rate 73 73 Respiratory Rate 18 Blood Pressure 111/63 Pulse Oximetry 96 Oxygen Delivery Room Air 04/02/25 08:07 04/02/25 12:00 Temperature Pulse Rate 72 70 Respiratory Rate Blood Pressure Pulse Oximetry Oxygen Delivery Intake/Output Intake/Output: Intake & Output 03/30/25 03/31/25 04/01/25 04/02/25 23:59 23:59 23:59 23:59 Intake Total 1630 1040 1530 550 Output Total 200 190 263 5231 Balance 1430 490 730 -450 Meds/Results Medications: Active Medications Generic Name Dose Route Start Last Admin Trade Name Freq PRN Reason Stop Dose Admin Acetaminophen 1,000 mg 03/27/25 19:16 04/01/25 12:08 Acetaminophen 500 Mg Tablet PO 1,000 mg Q6HR PRN Administration Mild Pain (1-3) or Fever Apixaban 5 mg 03/13/25 21:00 04/02/25 08:07 Apixaban 5 Mg Tablet PO 5 mg Q12HR EJ Administration Aspirin 81 mg 03/20/25 09:00 04/02/25 08:07 Aspirin 81 Mg Enteric Tablet PO 81 mg QAM EJ Administration Atorvastatin Calcium 10 mg 03/13/25 09:00 04/02/25 08:07 Atorvastatin 10 Mg Tablet PO 10 mg DAILY EJ Administration Carvedilol 6.25 mg 03/19/25 21:00 04/02/25 08:07 Carvedilol 6.25 Mg Tablet PO 6.25 mg Q12HR EJ Administration Cyclobenzaprine HCl 10 mg 03/19/25 16:55 04/01/25 12:08 Cyclobenzaprine Hcl 10 Mg Tablet PO 10 mg Q8H PRN Administration Muscle Spasm Dextrose 12.5 gm 03/13/25 08:49 Dextrose 50% 25 Gm/50 Ml Syringe IV PUSH PRN PRN Hypoglycemia Protocol Furosemide 20 mg 03/13/25 09:00 04/02/25 08:07 Furosemide 20 Mg Tablet PO 20 mg QAM EJ Administration Glucagon 1 mg 03/13/25 08:49 Glucagon For Inj 1 Mg Vial IM PRN PRN Hypoglycemia Protocol Glucose 15 gm 03/13/25 08:49 03/14/25 21:01 Glucose Oral Gel 15 Gm Of Glucse In 37.5 Gm Tube PO 15 gm PRN PRN Administration Hypoglycemia Protocol Dextrose 1,000 mls @ 100 mls/hr 03/13/25 08:49 Dextrose 5% 1,000 Ml IVPB PRN PRN Hypoglycemia Protocol Cefepime HCl 2 gm/ Sodium 50 mls @ 100 mls/hr 03/26/25 22:00 04/02/25 06:02 Chloride IVPB Infused Q8H EJ Infusion Insulin Aspart 2 - 5 units 03/13/25 12:00 04/02/25 08:08 Insulin Aspart (*Bkc) 100 Units/Ml SUB-Q Not Given TIDWM [facility] Protocol Lidocaine 2 patch 03/14/25 09:00 04/02/25 08:09 Lidocaine 5% Patch TRANSDERM 2 patch DAILY EJ Administration Lisinopril 20 mg 03/13/25 21:00 04/01/25 20:15 Lisinopril 20 Mg Tablet PO 20 mg HS EJ Administration Multi-Ingred Cream/Lotion/Oil/Oint 1 applic 03/24/25 17:00 04/02/25 08:10 Eucerin Cream 120 Gm Jar TOPICAL 1 applic BID EJ Administration Ondansetron HCl 4 mg 03/13/25 08:49 Ondansetron Inj 4 Mg/2 Ml Vial IV PUSH Q6H PRN Nausea And Vomiting Oxycodone HCl 5 mg 03/14/25 13:14 04/02/25 09:34 Oxycodone Hcl (*Crx) 5 Mg Tab Ir PO 5 mg Q4H PRN Administration Pain Rated 6 or Greater Oxycodone HCl 2.5 mg 03/24/25 07:57 03/27/25 11:07 Oxycodone Hcl (*Crx) 2.5 Mg Tab Ir PO 2.5 mg Q4H PRN Administration Pain Rated 5 or Less Oxycodone HCl 20 mg 04/01/25 21:00 04/02/25 08:07 Oxycodone Hcl (*Crx) 20 Mg Tab Sr 12hr PO 20 mg Q12HR EJ Administration Pantoprazole Sodium 40 mg 03/13/25 08:00 04/02/25 08:07 Pantoprazole 40 Mg Tablet PO 40 mg DAILY@0800 EJ Administration Polyethylene Glycol 17 gm 03/23/25 19:35 04/02/25 08:07 Polyethylene Glycol 3350 17 Gm Powd.Pack PO 17 gm QAM EJ Administration Radiology Results: ITS Impressions Elbow X-Ray 03/13/25 07:04 Impression: 1: No acute bone or joint abnormality. Chest X-Ray 03/13/25 07:05 IMPRESSION: 1: NO ACUTE CARDIOPULMONARY DISEASE. Tibia/Fibula X-Ray 03/13/25 07:06 Impression: 1: Mild-moderate polyarticular osteoarthritis. Lumbar Spine X-Ray 03/14/25 18:51 IMPRESSION: Normal lumbar spine. Ankle Brachial Index 03/19/25 14:34 IMPRESSION: 1. No significant arterial occlusive disease to either lower limb with normal bilateral TBIs. Skull X-Ray 03/20/25 14:40 Impression: No acute fracture or malalignment. Lumbar Spine MRI 03/20/25 18:05 IMPRESSION: 1. Evidence of acute discitis at L1-2 level with osteomyelitis involving L1 and L2 vertebral bodies.Para Vertebral inflammatory changes with microabscesses on both sides. 2. Significant narrowing of the thecal sac at L1-2 level as described above. 3. Findings at other disc levels are described above in detail. Lumbar Spine CT 03/27/25 15:24 IMPRESSION: 1. Destructive process of discitis at L1-2 level is noted with involvement of lower endplate of L1 and upper endplate of L2 vertebrae. Pathological fracture of upper endplate of L2 vertebra. These findings are more progressive compared with the CT findings on 03/20/2025. 2. Narrowing of thecal sac at upper L2 level as described above. 3. Paravertebral soft tissue inflammation at L1-L2 levels similar to prior study. Labs Labs: Laboratory Results - last 24 hr 04/01/25 04/01/25 04/02/25 16:29 20:25 07:47 POC Capillary Glucose 179 H 154 H 127 H 04/02/25 11:21 POC Capillary Glucose 173 H
[2025-04-02] MEDS: CYCLOBENZAPRINE HCL 10 MG TABLET PO (13:14)
[2025-04-02] MEDS: oxyCODONE HCL (*CRX) 2.5 MG TAB IR PO (17:36)
[2025-04-03] VITALS (11 sets, daily range): BP systolic 107–117; BP diastolic 64–78; PULSE 63–75; RESP 17–18; TEMP 36.2–36.8; O2SAT 96–99
[2025-04-03] MEDS: CYCLOBENZAPRINE HCL 10 MG TABLET PO ×2 (01:04→13:10)
[2025-04-03] MEDS: CEFEPIME 2 GM in SODIUM CHLORIDE 0.9% IV 50 ML 100 ML IVPB ×3 (06:00→21:22)
--- NOTE | 2025-04-03 08:02 | P.PNIM_ITS ---
Assessment and Plan Assessment and Plan (1) Septicemia: Code(s): A41.9 - Sepsis, unspecified organism Status: Acute Assessment and Plan: Patient presented to the ED with complaints of fall at home and worsening weakness and noted to have LLE draining wound, possibly cellulitis. He was started on Vancomycin, Cefepime and Flagyl. WCx: Morganella sensitive to bactrim, cipro, zosyn. BCx (03/13) MSSA BCx (03/15) MSSA one aerobic bottle only TTE 03/17 showing no vegetations. Abx changed to Cefazolin/Bactrim PO on 03/17/25. 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 [facility] has accepted patient and will have bed available tomorrow, discharge tomorrow order placed for PICC line to be placed (2) Septic discitis of lumbar region: Code(s): M46.46 - Discitis, unspecified, lumbar region Status: Acute Assessment and Plan: Patient has been having increasing back pain since October. Lumbar spine CT 03/20 showing an aggressive process at the L1-2 interspace likely involving discitis, osteomyelitis of both vertebral bodies, and paraspinal phlegmon/developing abscess with possible epidural involvement as well. Lumbar MRI 03/20 showing evidence of acute discitis at L1-2 level with osteomyelitis involving L1 and L2 vertebral bodies, para-vertebral inflammatory changes with microabscesses on both sides and significant narrowing of the thecal sac at L1-2 level Repeat Lum[address] spine CT 03/27 showing destructive process of discitis at L1-2 level with involvement of lower endplate of L1 and upper endplate of L2 vertebrae. Pathological fracture of upper endplate of L2 vertebra. These findings are more progressive compared with the CT findings on 03/20/2025. Also with narrowing of thecal sac at upper L2 level and paravertebral soft tissue inflammation at L1-L2 levels similar to prior study. Neurosurgery consulted and appreciate their help. Recommendations felt condition to be non-surgical but wthey will be called with updated imaging study. Pain control Antibiotic as per ID PT/OT as tolerated. Placement being arranged. patient had repeat CT which showed more progressive compared with the CT findings on 03/20/2025.We will follow Neurosurgery recommendations. discussed with Dr. Ryan patient new CT results and he recommends activity as patient tolerates, he should wear his brace when out of bed to help with pain control, physical therapy updated to evaluate patient again. 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 Cardiology consulted and appreciate their help Abnormal stress test in January showing a small region of mild reversible ischemia at the apical anterior, apical lateral and basilar inferolateral segments. Continue with aspirin, Coreg, Lipitor Further ischemic eval depending on symptoms and monitor results as outpatient once bacteremia clears (can be done as an outpatient) Plan to discharge on event monitor for 30 days Outpatient follow-up with Cardiology in 2-4 weeks upon discharge (6) Generalized weakness: Code(s): R53.1 - Weakness Status: Acute Assessment and Plan: Related to above PT/OT (7) Type 2 diabetes mellitus without complications: Code(s): E11.9 - Type 2 diabetes mellitus without complications Status: Acute Assessment and Plan: A1c 6.4% in January. The patient's blood glucose was reviewed on 03/27 Glucose remains mostly well controlled. Continue AccuCheks covering with sliding scale. Hypoglycemia protocol available as needed. Continue to follow (8) Essential (primary) hypertension: Code(s): I10 - Essential (primary) hypertension Status: Acute Assessment and Plan: Patient's blood pressure was reviewed on 03/27 Blood pressure remains well controlled. Will continue to monitor (9) Stasis dermatitis: Code(s): I87.2 - Venous insufficiency (chronic) (peripheral) Status: Acute Assessment and Plan: Chronic venous insufficiency with stasis dermatitis LLE>RLE Possible cellulitis on admission given the resolution of the erythema. Wound care following. Continue Eucerin cream for skin care (10) Pressure ulcer: Code(s): L89.90 - Pressure ulcer of unspecified site, unspecified stage Status: Acute Assessment and Plan: Pressure ulcer noted left buttock Wound care following Off loading Plan Code status: Full DVT prophylaxis: Eliquis Disposition: Needs SNF, CM working on acceptance Subjective Date/time seen: 04/03/25 08:02 Interval history: Patient seen for a follow up visit. Patient reports pain controlled this morning while not moving. I again encouraged patient to ask for pain medication in anticipation of having therpy. Patient continues on IV antibiotics. Order placed for PICC line. Patient with constipation, increaaed Miralax to BID, give dose of MOM. If ineffective will give mag citrate. Patient has been accepted at [facility] and they will have a bed tomorrow. Plan will be to discharge tomorrow to [facility]. Review of Systems Review of Systems: All systems reviewed & are unremarkable except as noted in HPI and below Exam Const: General: comfortable and no acute distress Other: Pleasant chronically ill gentleman, obese HENMT: Mouth: Yes moist mucous membranes Eyes: General: appearance normal, both eyes and all related structures Sclera: sclerae normal Pupils: Equal, round and reactive pupils present Neck: Neck: supple and no JVD Resp: Effort & Inspection: normal respiratory effort Auscultation: clear to auscultation bilaterally Cardio: Rate: regular rate and tachycardic Rhythm: regular rhythm GI: Auscultation: normal bowel sounds Skin: General skin exam: dry skin, erythema (LLE ) and excoriation Other: chronic venous stasis changes to lower extremities Neuro: Cranial nerves: Yes Equal, round and reactive pupils present Speech: normal speech Other: Unable to evaluate gait, pain with and movement to BLE Extrem: General: edema (RLE >LLE 2+) bilateral Other: chronic venous stasis changes to BLE, no edema Psych: Mental Status: mental status grossly normal Affect: normal affect Objective Data Vital Signs Vital Signs: Vital Signs - 24 hr 04/02/25 08:07 04/02/25 12:00 04/02/25 13:47 Temperature 97.5 F L Pulse Rate 72 70 68 Respiratory Rate 18 Blood Pressure 108/62 Pulse Oximetry 97 Oxygen Delivery 04/02/25 16:00 04/02/25 20:00 04/02/25 20:00 Temperature Pulse Rate 89 74 Respiratory Rate Blood Pressure Pulse Oximetry Oxygen Delivery Room Air 04/02/25 20:23 04/02/25 22:11 04/03/25 00:00 Temperature 97.1 F L Pulse Rate 66 74 69 Respiratory Rate 18 Blood Pressure 103/47 L Pulse Oximetry 97 Oxygen Delivery 04/03/25 04:00 04/03/25 06:00 Temperature 97.1 F L Pulse Rate 68 67 Respiratory Rate 18 Blood Pressure 107/69 Pulse Oximetry 99 Oxygen Delivery Intake/Output Intake/Output: Intake & Output 03/31/25 04/01/25 04/02/25 04/03/25 23:59 23:59 23:59 23:59 Intake Total 1040 1530 890 350 Output Total 924 450 1523 900 Balance 490 730 110 550 Meds/Results Medications: Active Medications Generic Name Dose Route Start Last Admin Trade Name Freq PRN Reason Stop Dose Admin Acetaminophen 1,000 mg 03/27/25 19:16 04/01/25 12:08 Acetaminophen 500 Mg Tablet PO 1,000 mg Q6HR PRN Administration Mild Pain (1-3) or Fever Apixaban 5 mg 03/13/25 21:00 04/02/25 20:23 Apixaban 5 Mg Tablet PO 5 mg Q12HR EJ Administration Aspirin 81 mg 03/20/25 09:00 04/02/25 08:07 Aspirin 81 Mg Enteric Tablet PO 81 mg QAM EJ Administration Atorvastatin Calcium 10 mg 03/13/25 09:00 04/02/25 08:07 Atorvastatin 10 Mg Tablet PO 10 mg DAILY EJ Administration Carvedilol 6.25 mg 03/19/25 21:00 04/02/25 20:23 Carvedilol 6.25 Mg Tablet PO 6.25 mg Q12HR EJ Administration Cyclobenzaprine HCl 10 mg 03/19/25 16:55 04/03/25 01:04 Cyclobenzaprine Hcl 10 Mg Tablet PO 10 mg Q8H PRN Administration Muscle Spasm Dextrose 12.5 gm 03/13/25 08:49 Dextrose 50% 25 Gm/50 Ml Syringe IV PUSH PRN PRN Hypoglycemia Protocol Furosemide 20 mg 03/13/25 09:00 04/02/25 08:07 Furosemide 20 Mg Tablet PO 20 mg QAM EJ Administration Glucagon 1 mg 03/13/25 08:49 Glucagon For Inj 1 Mg Vial IM PRN PRN Hypoglycemia Protocol Glucose 15 gm 03/13/25 08:49 03/14/25 21:01 Glucose Oral Gel 15 Gm Of Glucse In 37.5 Gm Tube PO 15 gm PRN PRN Administration Hypoglycemia Protocol Dextrose 1,000 mls @ 100 mls/hr 03/13/25 08:49 Dextrose 5% 1,000 Ml IVPB PRN PRN Hypoglycemia Protocol Cefepime HCl 2 gm/ Sodium 50 mls @ 100 mls/hr 03/26/25 22:00 04/03/25 06:30 Chloride IVPB Infused Q8H EJ Infusion Insulin Aspart 2 - 5 units 03/13/25 12:00 04/02/25 17:32 Insulin Aspart (*Bkc) 100 Units/Ml SUB-Q Not Given TIDWM [facility] Protocol Lidocaine 2 patch 03/14/25 09:00 04/02/25 08:09 Lidocaine 5% Patch TRANSDERM 2 patch DAILY EJ Administration Lisinopril 20 mg 03/13/25 21:00 04/02/25 20:23 Lisinopril 20 Mg Tablet PO 20 mg HS EJ Administration Magnesium Hydroxide 30 ml 04/03/25 07:54 Magnesium Hydroxide Susp 30 Ml Udc PO DAILY PRN constipation Multi-Ingred Cream/Lotion/Oil/Oint 1 applic 03/24/25 17:00 04/02/25 17:37 Eucerin Cream 120 Gm Jar TOPICAL 1 applic BID EJ Administration Ondansetron HCl 4 mg 03/13/25 08:49 Ondansetron Inj 4 Mg/2 Ml Vial IV PUSH Q6H PRN Nausea And Vomiting Oxycodone HCl 5 mg 03/14/25 13:14 04/02/25 13:35 Oxycodone Hcl (*Crx) 5 Mg Tab Ir PO 5 mg Q4H PRN Administration Pain Rated 6 or Greater Oxycodone HCl 2.5 mg 03/24/25 07:57 04/02/25 17:36 Oxycodone Hcl (*Crx) 2.5 Mg Tab Ir PO 2.5 mg Q4H PRN Administration Pain Rated 5 or Less Oxycodone HCl 20 mg 04/01/25 21:00 04/02/25 20:23 Oxycodone Hcl (*Crx) 20 Mg Tab Sr 12hr PO 20 mg Q12HR EJ Administration Pantoprazole Sodium 40 mg 03/13/25 08:00 04/02/25 08:07 Pantoprazole 40 Mg Tablet PO 40 mg DAILY@0800 EJ Administration Polyethylene Glycol 17 gm 04/03/25 09:00 Polyethylene Glycol 3350 17 Gm Powd.Pack PO BID [facility] Radiology Results: ITS Impressions Elbow X-Ray 03/13/25 07:04 Impression: 1: No acute bone or joint abnormality. Chest X-Ray 03/13/25 07:05 IMPRESSION: 1: NO ACUTE CARDIOPULMONARY DISEASE. Tibia/Fibula X-Ray 03/13/25 07:06 Impression: 1: Mild-moderate polyarticular osteoarthritis. Lumbar Spine X-Ray 03/14/25 18:51 IMPRESSION: Normal lumbar spine. Ankle Brachial Index 03/19/25 14:34 IMPRESSION: 1. No significant arterial occlusive disease to either lower limb with normal bilateral TBIs. Skull X-Ray 03/20/25 14:40 Impression: No acute fracture or malalignment. Lumbar Spine MRI 03/20/25 18:05 IMPRESSION: 1. Evidence of acute discitis at L1-2 level with osteomyelitis involving L1 and L2 vertebral bodies.Para Vertebral inflammatory changes with microabscesses on both sides. 2. Significant narrowing of the thecal sac at L1-2 level as described above. 3. Findings at other disc levels are described above in detail. Lumbar Spine CT 03/27/25 15:24 IMPRESSION: 1. Destructive process of discitis at L1-2 level is noted with involvement of lower endplate of L1 and upper endplate of L2 vertebrae. Pathological fracture of upper endplate of L2 vertebra. These findings are more progressive compared with the CT findings on 03/20/2025. 2. Narrowing of thecal sac at upper L2 level as described above. 3. Paravertebral soft tissue inflammation at L1-L2 levels similar to prior study. Labs Labs: Laboratory Results - last 24 hr 04/02/25 04/02/25 04/02/25 11:21 17:16 20:44 POC Capillary Glucose 173 H 170 H 170 H Quality VTE Prophylaxis VTE prophylaxis: pharmacologic ordered
[2025-04-03] MEDS: oxyCODONE HCL (*CRX) 20 MG TAB SR 12HR PO ×2 (08:25→21:20)
[2025-04-03] MEDS: PANTOPRAZOLE 40 MG TABLET PO (08:25)
[2025-04-03] MEDS: APIXABAN 5 MG TABLET PO ×2 (08:25→21:19)
[2025-04-03] MEDS: FUROSEMIDE 20 MG TABLET PO (08:25)
[2025-04-03] MEDS: ASPIRIN 81 MG ENTERIC TABLET PO (08:25)
[2025-04-03] MEDS: ATORVASTATIN 10 MG TABLET PO (08:25)
[2025-04-03] MEDS: oxyCODONE HCL (*CRX) 5 MG TAB IR PO ×3 (08:25→17:20)
[2025-04-03] MEDS: MAGNESIUM HYDROXIDE SUSP 30 ML UDC PO (08:26)
[2025-04-03] MEDS: LIDOCAINE 5% PATCH 2 PATCH TRANSDERM (08:27)
[2025-04-03] MEDS: EUCERIN CREAM 120 GM JAR 1 APPLIC TOPICAL ×2 (08:28→17:20)
--- NOTE | 2025-04-03 13:56 | PCOTNOTE ---
Patient unavailable to OT treatment session at this time. Patient is having a PICC line placed.
[2025-04-03] MEDS: LIDOCAINE 1% PF INJ 5 ML VIAL INFILTRATE (14:10)
--- NOTE | 2025-04-03 16:25 | PM.EVENT ---
Event Note Event Note Event Note: Final orders are cefepime 2 grams IV Q8 hours x 6 weeks 10 mL 0.9 normal saline flush pre and post each infusion weekly cmp, cbc, crp, esr faxed to my office at [phone] -will need to f/u in ID clinic as a tele visit--call for appt for 4 weeks from now--[phone]
[2025-04-03] MEDS: MAGNESIUM CITRATE 300 ML BTL 150 ML PO (17:20)
--- NOTE | 2025-04-03 17:50 | P.PNNEUSUR_ITS ---
Progress Note: A&P Assessment and Plan (1) Septic discitis of lumbar region: Code(s): M46.46 - Discitis, unspecified, lumbar region Status: Acute (2) Osteomyelitis of lumbar vertebra: Code(s): M46.26 - Osteomyelitis of vertebra, lumbar region Status: Acute Assessment and Plan: Bernabe seems about the same radiographically and clinically to me. He has a little bit of a setback recently with increased pain and slightly worsened CT scan. He is on tailored antibiotics and scheduled to go to rehab soon. I do not see a clear indication for surgery at this point and he would not agree to it even if I recommended it. He was clear about this. Aspiration of the disc space by Interventional Radiology could be helpful for local control, perhaps. Subjective Date/time seen: 04/03/25 17:50 Interval history: I saw Bernabe today and reviewed his images. By history he is a 69 year old male with a past medical history of past history of diabetes, hypertension, HLD, PVD, PEs, venous stasis bilateral lower extremities and chronic wounds bilaterally who presented after a fall at the facility where he lives. He experienced generalized weakness and pain in his back. He was noted here to have bacteremia and MSSA was cultured from his blood. A seeping wound on his leg grew Proteus mirabilis. CT scan and an MRI of his lumbar spine was performed. This demonstrated destructive lesion in the disc space at L1-2 most consistent with diskitis/osteomyelitis. He has generalized weakness and pain if he still tries to stand walk. He states that this is somewhat worse the last couple of days but better than it was weeks ago. He did not participate in physical therapy today because of pain. Exam Narrative: There is give-way weakness at the hips secondary to pain in his back. He is able to draw both legs against resistance. He is able to hold both leg straight against resistance. He has good dorsiflexion and plantar flexion. Sensation is intact to light touch throughout the lower extremities. Review of studies: The new CT scan of the lumbar spine was personally reviewed by me. This dem onstrates slightly worsening appearance of the bony destruction specially at L2 but otherwise very similar appearing findings to his scan done on the . Objective Data Vital Signs Vital Signs: Vital Signs - 24 hr 04/02/25 20:00 04/02/25 20:00 04/02/25 20:23 Temperature Pulse Rate 74 66 Respiratory Rate Blood Pressure Pulse Oximetry Oxygen Delivery Room Air 04/02/25 22:11 04/03/25 00:00 04/03/25 04:00 Temperature 97.1 F L Pulse Rate 74 69 68 Respiratory Rate 18 Blood Pressure 103/47 L Pulse Oximetry 97 Oxygen Delivery 04/03/25 06:00 04/03/25 08:00 04/03/25 08:00 Temperature 97.1 F L Pulse Rate 67 71 Respiratory Rate 18 Blood Pressure 107/69 Pulse Oximetry 99 Oxygen Delivery Room Air 04/03/25 08:26 04/03/25 12:00 04/03/25 14:00 Temperature 98.3 F Pulse Rate 75 66 63 Respiratory Rate 18 Blood Pressure 115/64 Pulse Oximetry 97 Oxygen Delivery 04/03/25 16:00 Temperature Pulse Rate 72 Respiratory Rate Blood Pressure Pulse Oximetry Oxygen Delivery Intake/Output Intake/Output: Intake & Output 03/31/25 04/01/25 04/02/25 04/03/25 23:59 23:59 23:59 23:59 Intake Total 1040 1530 890 860 Output Total 770 065 7272 900 Balance 490 730 -110 -40 Meds/Results Medications: Active Medications Generic Name Dose Route Start Last Admin Trade Name Freq PRN Reason Stop Dose Admin Acetaminophen 1,000 mg 03/27/25 19:16 04/01/25 12:08 Acetaminophen 500 Mg Tablet PO 1,000 mg Q6HR PRN Administration Mild Pain (1-3) or Fever Apixaban 5 mg 03/13/25 21:00 04/03/25 08:25 Apixaban 5 Mg Tablet PO 5 mg Q12HR EJ Administration Aspirin 81 mg 03/20/25 09:00 04/03/25 08:25 Aspirin 81 Mg Enteric Tablet PO 81 mg QAM EJ Administration Atorvastatin Calcium 10 mg 03/13/25 09:00 04/03/25 08:25 Atorvastatin 10 Mg Tablet PO 10 mg DAILY EJ Administration Carvedilol 6.25 mg 03/19/25 21:00 04/03/25 08:26 Carvedilol 6.25 Mg Tablet PO 6.25 mg Q12HR EJ Administration Cyclobenzaprine HCl 10 mg 03/19/25 16:55 04/03/25 13:10 Cyclobenzaprine Hcl 10 Mg Tablet PO 10 mg Q8H PRN Administration Muscle Spasm Dextrose 12.5 gm 03/13/25 08:49 Dextrose 50% 25 Gm/50 Ml Syringe IV PUSH PRN PRN Hypoglycemia Protocol Furosemide 20 mg 03/13/25 09:00 04/03/25 08:25 Furosemide 20 Mg Tablet PO 20 mg QAM EJ Administration Glucagon 1 mg 03/13/25 08:49 Glucagon For Inj 1 Mg Vial IM PRN PRN Hypoglycemia Protocol Glucose 15 gm 03/13/25 08:49 03/14/25 21:01 Glucose Oral Gel 15 Gm Of Glucse In 37.5 Gm Tube PO 15 gm PRN PRN Administration Hypoglycemia Protocol Dextrose 1,000 mls @ 100 mls/hr 03/13/25 08:49 Dextrose 5% 1,000 Ml IVPB PRN PRN Hypoglycemia Protocol Cefepime HCl 2 gm/ Sodium 50 mls @ 100 mls/hr 03/26/25 22:00 04/03/25 13:41 Chloride IVPB Infused Q8H EJ Infusion Insulin Aspart 2 - 5 units 03/13/25 12:00 04/03/25 17:12 Insulin Aspart (*Bkc) 100 Units/Ml SUB-Q Not Given TIDWM [facility] Protocol Lidocaine 2 patch 03/14/25 09:00 04/03/25 08:27 Lidocaine 5% Patch TRANSDERM 2 patch DAILY EJ Administration Lisinopril 20 mg 03/13/25 21:00 04/02/25 20:23 Lisinopril 20 Mg Tablet PO 20 mg HS EJ Administration Magnesium Hydroxide 30 ml 04/03/25 07:54 04/03/25 08:26 Magnesium Hydroxide Susp 30 Ml Udc PO 30 ml DAILY PRN Administration constipation Multi-Ingred Cream/Lotion/Oil/Oint 1 applic 03/24/25 17:00 04/03/25 17:20 Eucerin Cream 120 Gm Jar TOPICAL 1 applic BID EJ Administration Ondansetron HCl 4 mg 03/13/25 08:49 Ondansetron Inj 4 Mg/2 Ml Vial IV PUSH Q6H PRN Nausea And Vomiting Oxycodone HCl 5 mg 03/14/25 13:14 04/03/25 17:20 Oxycodone Hcl (*Crx) 5 Mg Tab Ir PO 5 mg Q4H PRN Administration Pain Rated 6 or Greater Oxycodone HCl 2.5 mg 03/24/25 07:57 04/02/25 17:36 Oxycodone Hcl (*Crx) 2.5 Mg Tab Ir PO 2.5 mg Q4H PRN Administration Pain Rated 5 or Less Oxycodone HCl 20 mg 04/01/25 21:00 04/03/25 08:25 Oxycodone Hcl (*Crx) 20 Mg Tab Sr 12hr PO 20 mg Q12HR EJ Administration Pantoprazole Sodium 40 mg 03/13/25 08:00 04/03/25 08:25 Pantoprazole 40 Mg Tablet PO 40 mg DAILY@0800 EJ Administration Polyethylene Glycol 17 gm 04/03/25 09:00 04/03/25 17:20 Polyethylene Glycol 3350 17 Gm Powd.Pack PO 17 gm BID EJ Administration Sodium Chloride 10 ml 04/03/25 22:00 Central Line Flush IV PUSH Q8HR EJ Sodium Chloride 10 ml 04/03/25 15:02 Central Line Flush IV PUSH PRN PRN with TPN bag changes Sodium Chloride 20 ml 04/03/25 15:02 Central Line Flush IV PUSH PRN PRN after blood draws Radiology Results: ITS Impressions Elbow X-Ray 03/13/25 07:04 Impression: 1: No acute bone or joint abnormality. Chest X-Ray 03/13/25 07:05 IMPRESSION: 1: NO ACUTE CARDIOPULMONARY DISEASE. Tibia/Fibula X-Ray 03/13/25 07:06 Impression: 1: Mild-moderate polyarticular osteoarthritis. Lumbar Spine X-Ray 03/14/25 18:51 IMPRESSION: Normal lumbar spine. Ankle Brachial Index 03/19/25 14:34 IMPRESSION: 1. No significant arterial occlusive disease to either lower limb with normal bilateral TBIs. Skull X-Ray 03/20/25 14:40 Impression: No acute fracture or malalignment. Lumbar Spine MRI 03/20/25 18:05 IMPRESSION: 1. Evidence of acute discitis at L1-2 level with osteomyelitis involving L1 and L2 vertebral bodies.Para Vertebral inflammatory changes with microabscesses on both sides. 2. Significant narrowing of the thecal sac at L1-2 level as described above. 3. Findings at other disc levels are described above in detail. Lumbar Spine CT 03/27/25 15:24 IMPRESSION: 1. Destructive process of discitis at L1-2 level is noted with involvement of lower endplate of L1 and upper endplate of L2 vertebrae. Pathological fracture of upper endplate of L2 vertebra. These findings are more progressive compared with the CT findings on 03/20/2025. 2. Narrowing of thecal sac at upper L2 level as described above. 3. Paravertebral soft tissue inflammation at L1-L2 levels similar to prior study. Labs Labs: Laboratory Results - last 24 hr 04/02/25 04/03/25 04/03/25 20:44 08:12 11:24 POC Capillary Glucose 170 H 118 H 159 H 04/03/25 16:44 POC Capillary Glucose 152 H
[2025-04-03] MEDS: CENTRAL LINE FLUSH 10 ML IV PUSH (21:23)
[2025-04-04] VITALS (8 sets, daily range): BP systolic 108–116; BP diastolic 66; PULSE 66–81; RESP 18; TEMP 36.4–36.8; O2SAT 94–97
[2025-04-04] MEDS: oxyCODONE HCL (*CRX) 2.5 MG TAB IR PO (01:37)
[2025-04-04] MEDS: CEFEPIME 2 GM in SODIUM CHLORIDE 0.9% IV 50 ML 100 ML IVPB ×2 (05:17→13:57)
[2025-04-04] MEDS: CENTRAL LINE FLUSH 10 ML IV PUSH ×2 (05:19→13:58)
[2025-04-04 07:45] LABS: Hematocrit 31.2 % (42.0-52.0); Hemoglobin 9.4 g/dL (14.0-18.0); Immature Granulocyte Percent A 0.2 % (0-0.5); Lymphocytes Absolute Auto 1.79 K/mm3 (0.9-3.2); Mean Corpuscular HGB Conc 30.1 g/dl (32-36); Mean Corpuscular Hemoglobin 23.2 pg (26-34); Mean Corpuscular Volume 77.0 fl (80-100); Nucleated Red Blood Cells Absolute Auto 0.000 K/mm3 (0.0-0.012); Nucleated Red Blood Cells Perc 0.0 % (0.0-0.2); Platelet Count Result 345 k/mm3 (150-375); Red Blood Count 4.05 M/mm3 (4.6-6.20); White Blood Count 8.3 K/mm3 (4.5-10.0)
[2025-04-04 07:57] LABS: Alanine Aminotransferase 52 U/L (6-50); Albumin Level 3.4 g/dL (3.5-5.1); Alkaline Phosphatase 124 U/L (38-126); Anion Gap 4 mmol/L (4-12); Aspartate Amino Transferase 76 U/L (17-59); Bilirubin,Total 0.5 mg/dL (0.2-1.3); Blood Urea Nitrogen 23 mg/dL (9-20); Calcium 9.2 mg/dL (8.4-10.2); Carbon Dioxide 29 mmol/L (22-30); Chloride 102 mmol/L (98-107); Estimated CRCL calculation 150 ml/min; Estimated Glomerular Filt Rate > 60; Glucose 124 mg/dL (65-110); Potassium 4.3 mmol/L (3.4-5.0); Sodium 135 mmol/L (137-145); Total Protein 7.9 g/dL (6.3-8.2)
[2025-04-04 08:38] LABS: Anisocytosis 1+; Hypochromasia 1+; Schistocytes None Seen
[2025-04-04] MEDS: ATORVASTATIN 10 MG TABLET PO (08:47)
[2025-04-04] MEDS: FUROSEMIDE 20 MG TABLET PO (08:47)
[2025-04-04] MEDS: PANTOPRAZOLE 40 MG TABLET PO (08:48)
[2025-04-04] MEDS: ASPIRIN 81 MG ENTERIC TABLET PO (08:48)
[2025-04-04] MEDS: APIXABAN 5 MG TABLET PO (08:48)
[2025-04-04] MEDS: oxyCODONE HCL (*CRX) 20 MG TAB SR 12HR PO (08:48)
[2025-04-04] MEDS: LIDOCAINE 5% PATCH 2 PATCH TRANSDERM (08:49)
[2025-04-04] MEDS: EUCERIN CREAM 120 GM JAR 1 APPLIC TOPICAL (09:02)
[2025-04-04] MEDS: LACTULOSE ENEMA 200 GM/1,000 ML ENEMA RECTAL (10:28)
[2025-04-04] MEDS: LACTULOSE 20 GM/30 ML UDC PO (11:31)
--- NOTE | 2025-04-04 14:20 | P.DS_ITS ---
DS: Admitting Diagnosis Discharge Date 04/04/2025 Admitting Diagnosis [place] BLE DS: Discharge Diagnosis Discharge Diagnosis (1) Septicemia: Code(s): A41.9 - Sepsis, unspecified organism Status: Acute (2) Septic discitis of lumbar region: Code(s): M46.46 - Discitis, unspecified, lumbar region Status: Acute (3) Paraspinal abscess: Code(s): M46.20 - Osteomyelitis of vertebra, site unspecified Status: Acute (4) Osteomyelitis of lumbar vertebra: Code(s): M46.26 - Osteomyelitis of vertebra, lumbar region Status: Acute (5) Ventricular tachycardia seen on cardiac exercise specialist: Code(s): I47.20 - Ventricular tachycardia, unspecified Status: Acute (6) Generalized weakness: Code(s): R53.1 - Weakness Status: Acute (7) Type 2 diabetes mellitus without complications: Code(s): E11.9 - Type 2 diabetes mellitus without complications Status: Acute (8) Essential (primary) hypertension: Code(s): I10 - Essential (primary) hypertension Status: Acute (9) Stasis dermatitis: Code(s): I87.2 - Venous insufficiency (chronic) (peripheral) Status: Acute (10) Pressure ulcer: Code(s): L89.90 - Pressure ulcer of unspecified site, unspecified stage Status: Acute DS: Summary Hospital Course Reason for hospitalization: Septicemia/septic diskitis of the lumbar region/paraspinal abscess/osteomyelitis of the lumbar vertebrae/NSVT Hospital Course: Admission: Patient is a 69-year-old male with past history of diabetes, hypertension, HLD, PVD, PEs, venous stasis bilateral lower extremities and chronic wounds bilateral who presented to the emergency department with complaints of fall at home and worsening weakness. Patient denied hitting his head or losing consciousness he denies any chest pain, shortness a breath, nausea, vomiting, fever chills. Patient with chronic bilateral lower extremity wounds appears to have some drainage from sites. Patient with mild to moderate bilateral lower extremity pain follow with wound clinic outpatient. In the ED: Trauma imaging was negative for any acute fractures, WBC 16.4 POA, normal lactic. Tib fib x-ray aipi-ce-cujjvhea OA. Patient with tachycardia, tachypnea blood pressure was mildly soft. Patient admitted to medical unit for further evaluation and treatment of cellulitis to left lower extremity unsteady gait and fall. Hospital Course: patient was admitted to the medical unit initially started for treatment of cellulitis to left lower extremity that resulted in unsteady gait and fall however during patient's course of treatment he continued to have worsening lower extremity weakness and lower back pain. initially patient was started on vancomycin, cefepime and Flagyl for possible cellulitis however after wound culture was completed Morganella resulted and was sensitive to oral Bactrim. Patient's blood cultures then resulted back with MSSA and antibiotics were changed to cefazolin . Patient did undergo a ANTIONE that showed no vegetation. due to patient's continued lower back pain and reduced mobility a lumbar spine and lumbar MRI were completed showing L1-2 with osteomyelitis and likely discitis. patient had follow-up repeat lumbar spine which showed destructive process of diskitis at L1-2 and were progressing. Neurosurgery as well as Infectious Disease were both consulted for further treatment plans. treatment plan included continued IV antibiotic therapy brace with ambulation and aggressi ve pain management. after final cultures resulted patient was transitioned to cefepime 2gm IV Q8 for continued 6 week course. Patient did have a PICC placed and it was recommended patient would need senior living facility for long- term therapy. during the course of his hospitalization patient did have episodes of nonsustained V-tach which time Cardiology was consulted. Patient had an abnormal stress test in January showing a small region of mild reversible ischemia at the apical anterior, apical lateral and basilar inferolateral segments. Cardiology recommended to continue with aspirin, Coreg, Lipitor and further ischemic eval depending on symptoms and monitor results as outpatient once bacteremia clears (can be done as an outpatient) Plan to discharge on event monitor for 30 days Outpatient follow-up with Cardiology in 2-4 weeks upon discharge. patient did have noted a pressure ulcer to left buttock wound Care was consulted with wound instructions recommended continue offloading and Q 2 turns. patient with slow progress and limited mobility recommendation to senior living facility at which time patient was accepted and transferred to SNF via EMS for continued physical and occupational therapy as well as IV antibiotic therapy. will have follow-up with the ID clinic in 4 weeks who also recommended patient continue to have weekly CMP, CBC, CRP, ESR. if no im provement patient will also need to follow-up neurosurgery possible alternative is to have aspiration of disc space. Status at Discharge Functional status at discharge: uses cane/walker Overall status at discharge: patient is progressing back to baseline Time Spent with Patient Time attestation: Total time spent providing and/or coordinating discharge services: Time spent: Greater than 30 minutes Exam Const: General: comfortable, no acute distress and uncomfortable Other: Pleasant chronically ill gentleman pain with movement HENMT: Mouth: Yes moist mucous membranes Eyes: General: appearance normal, both eyes and all related structures Sclera: sclerae normal Pupils: Equal, round and reactive pupils present Neck: Neck: supple and no JVD Resp: Effort & Inspection: normal respiratory effort Auscultation: clear to auscultation bilaterally Cardio: Rate: tachycardic Rhythm: regular rhythm GI: GI Palp: Yes Soft to palpation Auscultation: normal bowel sounds Other: Patient passing gas Skin: General skin exam: dry skin, erythema (LLE ) and excoriation Wounds: wounds noted ulceration left buttock Other: Patient with significant excoriation to his abdominal area, dermatitis stasis, minimal drainage Neuro: Cranial nerves: Yes Equal, round and reactive pupils present Speech: normal speech Other: Unable to evaluate gait, pain with and movement to BLE Extrem: General: edema (RLE >LLE 2+) bilateral Psych: Mental Status: mental status grossly normal Affect: normal affect DS: Data Data Completed and Pending Labs on day of discharge: Labs from last 24 hours 04/04/25 04/04/25 04/03/25 12:01 07:37 21:01 WBC 8.3 RBC 4.05 L Hgb 9.4 L Hct 31.2 L MCV 77.0 L MCH 23.2 L MCHC 30.1 L RDW 22.5 H Plt Count 345 MPV 8.9 Immature Gran % (Auto) 0.2 Neut % (Auto) 61.2 Lymph % (Auto) 21.5 [place] % (Auto) 12.7 H Eos % (Auto) 3.6 Baso % (Auto) 0.8 Lymph # (Auto) 1.79 [place] # (Auto) 1.1 H Eos # (Auto) 0.3 Baso # (Auto) 0.1 Abs Immat Gran (auto) 0.02 Absolute Neuts (auto) 5.1 Absolute Nucleated RBC 0.000 Band Neutrophils % Not Reportable Nucleated RBC % 0.0 Platelet Estimate Adequate Large Platelets Present Hypochromasia 1+ Anisocytosis 1+ Schistocytes None seen Sodium 135 L Potassium 4.3 Chloride 102 Carbon Dioxide 29 Anion Gap 4 BUN 23 H D Creatinine 0.55 L Estim Creat Clear Calc 150 Estimated GFR > 60 Glucose 124 H POC Capillary Glucose 183 H 139 H 140 H Calcium 9.2 Total Bilirubin 0.5 AST 76 H ALT 52 H Alkaline Phosphatase 124 Total Protein 7.9 Albumin 3.4 L 04/03/25 16:44 WBC RBC Hgb Hct MCV MCH MCHC RDW Plt Count MPV Immature Gran % (Auto) Neut % (Auto) Lymph % (Auto) [place] % (Auto) Eos % (Auto) Baso % (Auto) Lymph # (Auto) [place] # (Auto) Eos # (Auto) Baso # (Auto) Abs Immat Gran (auto) Absolute Neuts (auto) Absolute Nucleated RBC Band Neutrophils % Nucleated RBC % Platelet Estimate Large Platelets Hypochromasia Anisocytosis Schistocytes Sodium Potassium Chloride Carbon Dioxide Anion Gap BUN Creatinine Estim Creat Clear Calc Estimated GFR Glucose POC Capillary Glucose 152 H Calcium Total Bilirubin AST ALT Alkaline Phosphatase Total Protein Albumin Discharge Plan Discharge Attending physician on discharge: Edmond Wiggins Consulting providers: Gemma Gallagher; Christiane Morton; Alvin Aldrich; Jimmie Elias; René Laura; Malik Manzano; Jesus Waters; Jozef Wood; Nuria Ibanez; Alejandra Naranjo; Katelin Valera; Gutierrez Koehler; Fiorella Melchor; Eyd Estrada; Gemma Mcwilliams; Prasanth Vázquez; Dimitri Fuentes; Torin Gonzalez; Jan Cash; Santy Underwood; Olaf Sevilla Discharging Clinician: Cathy Carbone Anticipated Discharge Date/Time: 04/04/25 14:28 Patient Disposition: [facility] Activity: as tolerated and other - see discharge instructions Diet: diabetic and other - see discharge instructions Wound Care Instructions: change dressing daily and other - see discharge instructions Discharge Instructions: 1). Septic discitis of lumbar region/Osteomyelitis of lumbar vertebra/Epidural abscess: * cefepime 2 grams IV Q8 hours x 6 weeks * 10 mL 0.9 normal saline flush pre and post each infusion * weekly cmp, cbc, crp, esr faxed to my office at [phone] * will need to f/u in ID clinic as a tele visit--call for appt for 4 weeks from now--[phone] * Follow-up with Neurosurgery as needed * Activity as tolerated * Pain medication as indicated * Continue bowel regiment have added lactulose until patient bowel movement 2). Ulceration to left buttock * every 12 hours apply antifungal barrier cream to sacrum wounds and maceration areas. leave open to air. * Offload/Q2hr turns * Encourage high protein shakes with each meal 3). Bilateral lower extremity dermatitis stasis * Left lower leg. If leg is dry leave open to air and cleanse with soap and water daily. If leg has open wounds: daily cleanse with soap and water, apply silver gel to wound beds and cover with dressing of adaptic gauze, ABD pad and roll gauze. * How can you care for yourself at home? ? Keep track of any new symptoms or changes in your symptoms. ? Rest until you feel better. ? Be safe with medicines. Take your medicines exactly as prescribed. Call your doctor if you think you are having a problem with your medicine. ? Do not drive after taking a prescription pain medicine. ? Ensure to follow-up with primary care physician as indicated and provide updated medication list provided to you at discharge. When should you call for help? Call 911 anytime you think you may need emergency care. For example, call if: ? You passed out (lost consciousness). Call your doctor now or seek immediate medical care if: ? You have new symptoms like fever, difficulty breathing, Chest pain, vomiting, or rash. ? You have new or different pain. ? You are confused and are having trouble thinking clearly. ? Your symptoms are getting worse. Watch closely for changes in your health, and be sure to contact your doctor if: ? You do not get better as expected. Patient Instructions: Osteomyelitis (DC), Bacteremia (DC) Patient Language: Polish Follow-up/Referrals: Adrian Cadena MD [Physician, Infectious Disease] - 4 Weeks Syeda Mcgowan MD [Physician, Neurosurgery] - Call for Appointment Discharge Medications: New carvedilol [Coreg] 6.25 mg Tablet 6.25 mg PO Q12HR Qty: 2 0RF aspirin 81 mg Tablet,Delayed Release (Dr/Ec) 81 mg PO QAM Qty: 1 0RF acetaminophen 500 mg Tablet 1,000 mg PO Q6HR PRN (Reason: Mild Pain (1-3) Or Fever) Qty: 1 0RF cefepime 2 gram recon soln 2 g IV Q8H Rx Instructions: 6 weeks 10 mL 0.9 normal saline flush pre and post each infusion weekly cmp, cbc, crp, esr faxed to my office at [phone] lactulose 10 gram/15 mL Solution 20 g PO Q6HR Qty: 1 0RF Rx Instructions: Until BM methocarbamol 500 mg Tablet 500 mg PO QID Qty: 1 0RF lidocaine [Lidoderm] 5 % Adhesive Patch,Medicated 2 patch transdermal DAILY Qty: 1 0RF Minerin Creme Cream 1 applic topical BID Qty: 1 0RF oxycodone 5 mg Tablet 5 mg PO Q4H PRN (Reason: Pain Rated 6 Or Greater) Qty: 10 0RF oxycodone [OxyContin] 20 mg Tablet,Oral Only,Ext.Rel.12 Hr 20 mg PO Q12HR Qty: 4 0RF polyethylene glycol 3350 [Miralax] 17 gram Powder In Packet 17 g PO BID Qty: 1 0RF Continued pantoprazole 40 mg tablet,delayed release (DR/EC) 40 mg PO QAM Qty: 30 3RF Rx Instructions: take 1 tablet q.a.m. on empty stomach and wait 30 minutes to eat or drink afterwards metformin 500 mg tablet extended release 24 hr 1,000 mg PO BID atorvastatin 10 mg tablet See Rx Instructions .ROUTE .COMPLEX Qty: 90 2RF Dose Instruction: TAKE ONE TABLET BY MOUTH DAILY Rx Instructions: TAKE ONE TABLET BY MOUTH DAILY Eliquis 5 mg tablet 5 mg PO BID Qty: 180 1RF furosemide [Lasix] 20 mg tablet 20 mg PO QAM Qty: 90 1RF lisinopril 20 mg tablet See Rx Instructions .ROUTE .COMPLEX Qty: 90 0RF Dose Instruction: TAKE 1 TABLET BY MOUTH DAILY Rx Instructions: TAKE 1 TABLET BY MOUTH DAILY Discontinued glipizide 5 mg tablet extended release 24hr 5 mg PO DAILY Qty: 90 2RF Date of admission: 03/13/25 03:52 Primary Care Provider: Augustine Willett Admitting Provider: Dinorah Bowles Attending physician on admission: Cathy Carbone Condition: Stable Quality VTE Prophylaxis VTE prophylaxis: pharmacologic ordered -Patient's previous records reviewed on admission -ER notes reviewed in detail on admission -discussed all findings and current treatment plan with patient/Family/POA -Consultations reviewed for recommendations -Patient's disposition for safe discharge discussed with case supervisor -radiology imaging, EKG and test results I have personally reviewed and interpreted unless otherwise specified Dictation performed by [employer] direct speech recognition software, therefore mechanical maintenance foreman variants and typographical errors may occur. Hospitalist MIPS Heart Failure (Exclusion) Patient has history of Heart Transplant or Left Ventricular Assistive Device?: No IF YES, STOP HERE Heart Failure (Qualifier) Patient has current or prior documentation of LVEF less than or equal to 40%, or mod/servere depressed LVSF?: No IF NO, STOP HERE
--- NOTE | 2025-04-04 14:50 | PCOTNOTE ---
Attempted to see Patient. Patient declined at this time. Patient states he is leaving, going to [facility] and will continue therapy. Patient attempting to have a bowel movement prior to leaving.
== END 2025-04-04 17:00 | DRG 871 ==
LOC: ANHED 03-13 03:54 → ANH3MEDSUR 03-13 08:41
PROVIDERS: Internal Medicine; Nurse Practitioner Adult Health; Specialist; Admitting Provider Internal Medicine; Emergency Provider Student in an Organized Health Care Education/Training Program; PCP Family Medicine; Visit Provider Nurse Practitioner Family
PROC: B24BZZ4 Ultrasonography of Heart with Aorta, Transesophageal (ICD-10-PCS; CPT 93312; principal; 2025-03-28 09:45)
DX: A41.01 Sepsis due to Methicillin susceptible Staphylococcus aureus (principal); G06.2 Extradural and subdural abscess, unspecified; M46.36 Infection of intervertebral disc (pyogenic), lumbar region; M46.26 Osteomyelitis of vertebra, lumbar region; L03.116 Cellulitis of left lower limb; I47.20 Ventricular tachycardia, unspecified; E11.9 Type 2 diabetes mellitus without complications; I10 Essential (primary) hypertension; I87.2 Venous insufficiency (chronic) (peripheral); I73.9 Peripheral vascular disease, unspecified; L89.320 Pressure ulcer of left buttock, unstageable; E87.6 Hypokalemia; S30.810A Abrasion of lower back and pelvis, initial encounter; E66.9 Obesity, unspecified; W19.XXXA Unspecified fall, initial encounter; D64.9 Anemia, unspecified; E78.5 Hyperlipidemia, unspecified; Z90.49 Acquired absence of other specified parts of digestive tract; Z68.37 Body mass index [BMI] 37.0-37.9, adult; Z86.711 Personal history of pulmonary embolism; Z79.01 Long term (current) use of anticoagulants
CPT/HCPCS: 36415; 36569; 70250; 71045; 72100; 72132; 72158; 73070; 73080; 73590; 80048; 80053; 80069; 80202; 81001; 82948; 83540; 83550; 83605; 83735; 83880; 84145; 85025; 85027; 86140; 87040; 87070; 87075; 87086; 87186; 87637; 93005; 93312; 93320; 93325; 93922; 96360; 97110; 97162; 97164; 97165; 97530; 97535; 99285; A9270; A9577; C1751; C8929; J0690; J0692; J1756; J1815; J1836; J2003; J2250; J2270; J3010; J3360; J3373; J3480; J7030; J7040; J7050; Q9957; Q9967

== ENCOUNTER 2025-04-21 22:34 | Emergency (ER) | payer MEDICARE, OTHER, SELFPAY ==
--- NOTE | ~2025-04-21 | XR_ITS ---
Examination: XR chest 1V portable Clinical History: weakness Comparison: 03/13/2025 Technique: Portable AP Findings: Right PICC. Heart size normal. Lungs clear. No acute bony abnormality. IMPRESSION: 1. No acute cardiopulmonary findings given portable technique. Reviewed, dictated and finalized at location R. OF GRADUATE STUDIES
--- NOTE | ~2025-04-21 | CT_ITS ---
EXAMINATION: CT abd pelvis lumbar wo con DATE: 04/22/2025 04:07 INDICATION: Back pain TECHNIQUE: Computed tomography (CT) of the abdomen, pelvis and lumbar spine was performed without intravenous contrast. Automated exposure control and iterative reconstruction technique were employed. The dose-length product was 1572.71 mGy-cm. COMPARISON: 04/09/2025 FINDINGS: Abdomen and pelvis: Mild dependent atelectasis in the bilateral lower lobes. Heart size is normal. No pericardial or pleural effusion. Small to moderate-sized sliding-type hiatal hernia. There are few scattered hepatic and splenic calcifications consistent with old granulomatous disease. Cholecystectomy clips at the gallbladder fossa. Pancreas, bilateral adrenal glands and kidneys are normal. Moderate-sized multilobulated fat-containing ventral hernia. Bowels including the appendix are normal. Bladder is normal. No free intraperitoneal gas or fluid. No pathologically enlarged abdominal or pelvic lymphadenopathy. Lumbar spine: There are endplate erosions and fragmentation with sclerosis of the remaining L1 and L2 vertebral bodies on either side of the widened L1-L2 disc space consistent with osteomyelitis. The bone fragments expand peripherally to the normal margins of the disc space with associated mild paravertebral soft tissue swelling and mild stranding. There is significant loss of bone stock along the cephalad half of the L2 vertebral body with secondary pathologic fracture across the pedicles. Additional osteolysis involving the inferior third of the L1 vertebral body. There are pathologic fractures across the bilateral L2 pedicles. Findings are not significantly changed when compared with the prior study. There is mild spondylosis the remainder of the lumbar and visualized mid to lower thoracic spine. IMPRESSION: 1. L1-L2 discitis and with minimal change in relatively advanced osteomyelitis of the L1 and L2 vertebral bodies with secondary pathologic fracture across the base of the bilateral L2 pedicles. 2. No other acute intra-abdominal/pelvic process. 3. Small to moderate-sized sliding-type hiatal hernia. 4. Moderate-sized multilobulated fat-containing ventral hernia. Reviewed, dictated and finalized at location A. [employer]
[2025-04-21 22:39] VITALS: BP 154/71; PULSE 80; RESP 18; TEMP 36.6; O2SAT 100
[2025-04-22] MEDS: ONDANSETRON INJ 4 MG/2 ML VIAL IV PUSH (03:27)
[2025-04-22] MEDS: HYDROmorphone HCL INJ (*CRX) 1 MG/ML SYR IV PUSH ×2 (03:28→03:49)
[2025-04-22 03:50] LABS: Hematocrit 32.1 % (42.0-52.0); Hemoglobin 10.3 g/dL (14.0-18.0); Immature Granulocyte Percent A 0.5 % (0-0.5); Lymphocytes Absolute Auto 1.85 K/mm3 (0.9-3.2); Mean Corpuscular HGB Conc 32.1 g/dl (32-36); Mean Corpuscular Hemoglobin 24.3 pg (26-34); Mean Corpuscular Volume 75.7 fl (80-100); Nucleated Red Blood Cells Absolute Auto 0.000 K/mm3 (0.0-0.012); Nucleated Red Blood Cells Perc 0.0 % (0.0-0.2); Platelet Count Result 372 k/mm3 (150-375); Red Blood Count 4.24 M/mm3 (4.6-6.20); White Blood Count 11.1 K/mm3 (4.5-10.0)
[2025-04-22 04:03] LABS: Alanine Aminotransferase 16 U/L (6-50); Albumin Level 3.3 g/dL (3.5-5.1); Alkaline Phosphatase 118 U/L (38-126); Anion Gap 11 mmol/L (4-12); Aspartate Amino Transferase 25 U/L (17-59); Bilirubin,Total 0.5 mg/dL (0.2-1.3); Blood Urea Nitrogen 19 mg/dL (9-20); CRP 3.1 mg/dL (<1.0); Calcium 9.0 mg/dL (8.4-10.2); Carbon Dioxide 22 mmol/L (22-30); Chloride 105 mmol/L (98-107); Estimated Glomerular Filt Rate > 60; Glucose 112 mg/dL (65-110); Magnesium 1.2 mg/dL (1.6-2.3); Potassium 3.2 mmol/L (3.4-5.0); Sodium 138 mmol/L (137-145); Total Protein 7.5 g/dL (6.3-8.2)
--- OUTSIDE RECORDS SUMMARY | 2025-04-22 04:05 | XMS_ITS | Clinical Summary ---
Author Organization [facility] Address [address] [address] Phone Care Team Providers Care Slot Operations Manager Name Role Phone Augustine Willett MD [...] Colorectal Cancer Screening 05/01/2024 Influenza Immunization (#1) 01/01/2025/07/2021, 03/03/2020 SARS-COV-2 Immunization (2 - season) 2025 06/12/2020 Respiratory Syncytial Virus (RSV) Immunization (Adult) (1 - 1-dose 75+ series) 2032 Pneumococcal Immunization Combined Discontinued 01/01/2015 Hepatitis B Immunization Aged Out No longer eligible based on patient's age to complete this topic Human Papillomavirus (HPV) Immunization (No Doses Required) Completed Meningococcal Immunization (ACWY) Aged Out No longer eligible based on patient's age to complete this topic Rotavirus Immunization Aged Out No lo nger eligible based on patient's age to complete this topic Procedures Procedure Name Priority Date/Time Associated Diagnosis Comments COLONOSCOPY Routine 05/01/2019 from Last 3 Months or Most Recently Relevant to Health Maintenance Results * COLONOSCOPY (05/01/2019) Tom Alton Juan R DO PROCEDURE/MINOR SURGICAL ORDERA BLES Edited Result - Final from Last 3 Months or Most Recently Relevant to Health Maintenance Insurance [facility] MEDICARE Care Teams Slot Operations Manager Relationship Specialty Start Date End Date Augustine Willett MD [address] [place] [address] PCP - General Family Medicine 05/10/19
--- OUTSIDE RECORDS SUMMARY | 2025-04-22 04:05 | XMS_ITS | Clinical Summary ---
Author Organization [facility] Address [address] [place] [phone] Phone Care Team Providers Care Clay Grinder Name Role Phone Augustine Willett MD Primary Care Provider [phone] Allergies No known active allergies Medications ELIQUIS [...] 2019 Insurance [facility] Care Teams Clay Grinder Relationship Specialty Start Date End Date Augustine Willett MD [address] [facility] [address] [facility] [address] [place] [address] PCP - General Internal Medicine 01/15/20
--- OUTSIDE RECORDS SUMMARY | 2025-04-22 04:05 | XMS_ITS | Clinical Summary ---
Author Organization [facility] [address] [facility] [address] Address [address] [place] [address] Care Team Providers Care Bridal Gown Fitter Name Role Phone Augustine Willett MD Primary Care Provider Allergies No known active allergies Encounters Date Type Department Care Team Description 04/14/2025 Orders Only [facility] Cardiology [address] [facility] [address] [place] [address] Alejandra Naranjo NP 03/19/2025 Orders Only [facility] Health Information Management [address] [place] [address] René Laura MD 03/13/2025 Orders Only [facility] Health Information Management [address] [place] [id number] Shantell Yo NP from Last 3 Months Social History Tobacco Use Types Packs/Day Years Used Date Smoking Tobacco: Never Assessed Personal Safety Answer Date Recorded Getting School Help Needed Not on file 07/16 Sex and Gender Information Value Date Recorded Sex Assigned at Not on file Legal Sex Male 1:17 AM BACK CLOSER Gender Identity Not on file Sexual Orientation Not on file Plan of Treatment Health Maintenance Due Date Last Done Comments Colon Cancer Screening-Colonoscopy 1957 Depression Screening 1957 Fall Risk Assessment 1957 Hepatitis C Screening 1957 Prostate Cancer Screening-PSA 1957 DTaP/Tdap/Td Vaccine (1 - Tdap) 1968 Hepatitis B Screening 1975 Zoster Vaccine (1 of 2) 2007 Pneumococcal vaccine 65+ (2 of 2 - PCV20 or PCV21) 01/02/2016 01/01/2015 Abdominal Aortic Aneurysm (AAA) Screen 2022 Well Visit 65+ 2022 Influenza Vaccine (#1) 2025 03/25/2020, 2019 Procedures Procedure Name Priority Date/Time Associated Diagnosis Comments CARDIOLOGY DOCUMENT SCAN Routine 03/20/2025 9:50 AM BACK CLOSER SCAN - RADIOLOGY/IMAGING 03/19/2025 CARDIOLOGY DOCUMENT SCAN 03/13/2025 from Last 3 Months Results * Cardiology Document Scan (03/20/2025 9:50 AM BACK CLOSER) Anatomical Region Laterality Modality Other Alejandra Naranjo NP CV CARDIAC SERVICE S PROCEDURES Final Result * SCAN - RADIOLOGY/IMAGING (03/19/2025) Anatomical Region Laterality Modality Other René Laura MD Final Result * Cardiology Document Scan (03/13/2025) Anatomical Region Laterality Modality Other Shantell Yo NP CV CARDIAC SERVICES PROCEDUR ES Final Result from Last 3 Months Insurance [facility] MEDICARE [employer] [facility] Care Teams Bridal Gown Fitter Relationship Specialty Start Date End Date Augustine Willett MD [address] [facility] [address] [place] [address] PCP - General 04/19/09
--- OUTSIDE RECORDS SUMMARY | 2025-04-22 04:05 | XMS_ITS | Encounter Summary ---
Author Organization [facility] Healthcare Address [address] [place] [address] Care Team Providers Care Pearl Stringer Name Role Phone Augustine Willett MD Primary Care Provider Encounter Details Date Type Department Care Team (Late st Contact Info) Description 03/13/2025 Orders Only [facility] Health Information Management [address] [place] [address] Shantell Yo NP [address] [place] [address] Social History Tobacco Use Types Packs/Day Years Used Date Smoking Tobacco: Never Assessed Personal Safety Answer Date Recorded Getting School Help Needed Not on file 07/16 Sex and Gender Information Value Date Recorded Sex Assigned at Not on file Legal Sex Male 1:17 AM 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 PLANS 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 OFFICER Gender Identity Not on file Sexual Orientation Not on file documented as of this encounter Plan of Treatment Not on file documented as of this encounter Procedures Procedure Name Priority Date/Time Associated Diagnosis Comments CARDIOLOGY DOCUMENT SCAN 03/13/2025 documented in this encounter Results * Cardiology Document Scan (03/13/2025) Anatomical Region Laterality Modality Other Shantell Yo NP CV CARDIAC SERVICES PROCEDUR ES Final Result documented in this encounter Visit Diagnoses Not on filedocumented in this encounter Care Teams Pearl Stringer Relationship Specialty Start Date End Date Augustine Willett MD [address] [place] [address] PCP - General 04/19/09 documented as of this encounter
--- OUTSIDE RECORDS SUMMARY | 2025-04-22 04:05 | XMS_ITS | Clinical Summary ---
Author Organization [facility] Address [address] [place] [address] Phone Care Team Providers Care Voice Coach Name Role Phone Augustine Willett MD Primary Care Provider [phone] Allergies No known active allergies Medications lisinopril [...] Comments Blood Pressure 142/76 07/10/2016 2:07 PM MENTAL HEALTH CONSULTANT Pulse 84 07/10/2016 2:07 PM MENTAL HEALTH CONSULTANT Temperature - - Respiratory Rate - - Oxygen Saturation - - Inhaled Oxygen Concentration - - Weight 148.3 kg (327 lb) 07/10/2016 2:07 PM MENTAL HEALTH CONSULTANT Height 182.9 cm (6') 07/10/2016 2:07 PM MENTAL HEALTH CONSULTANT Body Mass Index 44.35 07/10/2016 2:07 PM MENTAL HEALTH CONSULTANT Plan of Treatment Health Maintenance Due Date [...] BCBS BLUE ACCESS/TRUE BLUE PPO Care Teams Voice Coach Relationship Specialty Start Date End Date Augustine Willett MD [address] [place] [id number] PCP - General Family Practice 07/10/16
[2025-04-22 04:07] LABS: Troponin I 0.016 ng/mL (0.000-0.034)
[2025-04-22 04:13] LABS: Anisocytosis 1+; Hypochromasia 1+; Ovalocytes Occasional; Schistocytes None Seen; Target Cells Occasional
[2025-04-22 04:18] LABS: Influenza A QL RT-PCR Negative (Negative); Influenza B QL RT-PCR Negative (Negative); RSV RNA, RT-PCR Negative (Negative); SARS-CoV-2 RNA PCR Negative (Negative)
[2025-04-22 04:19] LABS: Procalcitonin 0.1 ng/mL
[2025-04-22 05:13] VITALS: BP 138/74; PULSE 99; RESP 18; TEMP 36.4; O2SAT 94
[2025-04-22] MEDS: MAGNESIUM SULF 2 GM/WATER 50ML 2 GM/50 ML BAG IVPB (05:20)
--- NOTE | 2025-04-22 05:46 | ED_ITS ---
HPI - General Adult General Chief complaint: Fall <Gutierrez Carmona MD - Last Filed: 04/22/25 07:09> Stated complaint: Fall; Family wants checked out <Gutierrez Carmona MD - Last Filed: 04/22/25 07:09> Time Seen by Provider: 04/22/25 02:57 <Gutierrez Carmona MD - Last Filed: 04/22/25 07:09> History of Present Illness HPI narrative: Patient 69-year-old gentleman presents emergency department with chief complaint of back pain. Patient reports that he has history of diskitis is currently receiving cefepime as an outpatient the patient reports this evening he has been back home after being in rehab and reports that he had a ground level fall falling backwards and the family reports that he has been getting progressively weaker they report that he has been having difficulty ambulating around the house takes almost hour for him to get up patient had been found a high fall some small stage I decubitus <Gutierrez Carmona MD - Last Filed: 04/22/25 07:09> Related Data Allergies/adverse reactions: Allergies Allergy/AdvReac Type Severity Reaction Status Date / Time No Known Allergies Allergy Verified 04/04/25 17:47 <Gutierrez Carmona MD - Last Filed: 04/22/25 07:09> Review of Systems 2 Review of Systems: A 10 system review of systems was completed on the patient and is negative except for what is stated in the HPI. Nursing and ancillary documentation was reviewed. <Gutierrez Carmona MD - Last Filed: 04/22/25 07:09> PENDING SALE TO [facility] Past Medical History Medical History: Medical History Rhinosinusitis Peripheral vascular disease Hx of adenomatous colonic polyps Hematuria MTHFR gene mutation Stasis dermatitis Personal history of pulmonary embolism Pure hypercholesterolemia, unspecified Essential (primary) hypertension <Gutierrez Carmona MD - Last Filed: 04/22/25 07:09> Surgical History Surgical History: Surgical History Status post endovenous radiofrequency ablation (RFA) of saphenous vein Hx of cholecystectomy Hx of colonoscopy <Gutierrez Carmona MD - Last Filed: 04/22/25 07:09> Family History Family History: Family History Mother Family history of malignant neoplasm multiple myeloma Father Family history of diabetes mellitus in first degree relative Family history of type 2 diabetes mellitus Skin cancer <Gutierrez Carmona MD - Last Filed: 04/22/25 07:09> Social History Social History: Social History Social History: Smoking status: Never smoker Second hand tobacco smoke exposure: No Alcohol intake: never Substance use: never Substance use type: does not use Lack of Transportation: No Lack of Food: Never True Current Housing: I Have Housing Concerned About Future Housing: No Difficulty Paying Gas/Electric Bills: No Difficulty Paying for Meds: No Currently Unemployed: No Education: Bachelor's Degree Difficulty w/ Childcare or Family Care: No Living arrangements: with family Additional living arrangements comments: with sp Occupation/Education: occupation Gender identity (if verbalized by the patient): Male Sexual Orientation (if Verbalized by the Patient): Straight or Heterosexual Spiritual care concerns: No <Gutierrez Carmona MD - Last Filed: 04/22/25 07:09> Exam 2 Narrative: GENERAL: Well-appearing, well-nourished, and in no acute distress. HEAD: Normocephalic, atraumatic. EYES: PERRLA and EOMI. ENT: Nares clear, no rhinorrhea or epistaxis. Mucous membranes moist. NECK: Supple. CHEST: Clear to auscultation. No respiratory distress. HEART: Regular rate and rhythm. No murmur heard. Normal peripheral pulses. ABDOMEN: Soft, nontender, nondistended, normal active bowel sounds. EXTREMITIES: Normal range of motion. No edema. SKIN: Warm, dry, no rash. Stage I decubitus ulcer in the sacral region NEURO: No focal deficits. Alert and oriented x3. PSYCH: Normal mood and affect. <Gutierrez Carmona MD - Last Filed: 04/22/25 07:09> Course Reevaluation(s) Reevaluation #1: No significant interval change in his physical of condition he was accepted at [facility] <Tez Cavazos MD - Last Filed: 04/22/25 14:25> Vital Signs Vital signs: Vital Signs Temperature 36.6 C 04/21/25 22:39 Pulse Rate 80 04/21/25 22:39 Respiratory Rate 18 04/21/25 22:39 Blood Pressure 154/71 H 04/21/25 22:39 Pulse Oximetry 100 04/21/25 22:39 Oxygen Delivery Room Air 04/21/25 22:39 Temperature 36.6 C 04/22/25 07:47 Pulse Rate 78 04/22/25 10:27 Respiratory Rate 16 04/22/25 10:27 Blood Pressure 133/76 04/22/25 10:27 Pulse Oximetry 97 04/22/25 10:27 Oxygen Delivery Room Air 04/22/25 07:09 <Gutierrez Carmona MD - Last Filed: 04/22/25 07:09> Vital Signs Temperature 36.6 C 04/21/25 22:39 Pulse Rate 80 04/21/25 22:39 Respiratory Rate 18 04/21/25 22:39 Blood Pressure 154/71 H 04/21/25 22:39 Pulse Oximetry 100 04/21/25 22:39 Oxygen Delivery Room Air 04/21/25 22:39 Temperature 36.6 C 04/22/25 07:47 Pulse Rate 78 04/22/25 10:27 Respiratory Rate 16 04/22/25 10:27 Blood Pressure 133/76 04/22/25 10:27 Pulse Oximetry 97 04/22/25 10:27 Oxygen Delivery Room Air 04/22/25 07:09 <Tez Cavazos MD - Last Filed: 04/22/25 14:25> MDM Differential Diagnosis Differential Diagnosis: Diskitis fracture worsening symptoms White count was 11 Laboratory markers CRP and sed rate were elevated The patient underwent a CT scan of the of the abdomen pelvis with lumbar recons that showed possible worsening of the disckitis The case was discussed with Dr. Ryan who recommended the patient be transferred to higher level of care as he is not improving Case was discussed the [facility] transfer center and currently they are waiting production quality manager back <Gutierrez Carmona MD - Last Filed: 04/22/25 07:09> Lab Data Result diagrams: 04/22/25 03:27 04/22/25 03:27 <Gutierrez Carmona MD - Last Filed: 04/22/25 07:09> Labs: Lab Results 04/22/25 04/22/25 04/22/25 Range/Units 03:27 03:27 03:27 WBC Cancelled 11.1 H RBC Cancelled 4.24 L Hgb Cancelled Hct MCV MCH MCHC RDW Plt Count MPV Immature Gran % (Auto) Neut % (Auto) Lymph % (Auto) [place] % (Auto) Eos % (Auto) Baso % (Auto) Lymph # (Auto) [place] # (Auto) Eos # (Auto) Baso # (Auto) Abs Immat Gran (auto) Absolute Neuts (auto) Absolute Nucleated RBC Band Neutrophils % Nucleated RBC % Platelet Estimate (Adequate) % Immature Plt Fraction Hypochromasia Anisocytosis Target Cells Ovalocytes Schistocytes ESR (0-20) mm/hr Sodium (137-145) mmol/L Potassium (3.4-5.0) mmol/L Chloride (98-107) mmol/L Carbon Dioxide (22-30) mmol/L Anion Gap (4-12) mmol/L BUN (9-20) mg/dL Creatinine (0.7-1.3) mg/dL Estim Creat Clear Calc Estimated GFR (59 - ) Glucose (65-110) mg/dL Lactic Acid (0.7-2.0) mmol/L Calcium (8.4-10.2) mg/dL Magnesium (1.6-2.3) mg/dL Total Bilirubin (0.2-1.3) mg/dL AST (17-59) U/L ALT (6-50) U/L Alkaline Phosphatase (38-126) U/L Troponin I (0.000-0.034) ng/mL C-Reactive Protein (<1.0) mg/dL Total Protein (6.3-8.2) g/dL Albumin (3.5-5.1) g/dL Procalcitonin ng/mL Urine Color (Yellow) Urine Appearance (Clear) Urine pH (5.0-9.0) Ur Specific [place] (1.001-1.035) Urine Protein (Negative) mg/dL Urine Glucose (UA) (Negative) mg/dL Urine Ketones (Negative) mg/dL Ur Blood (Man) (Negative) Urine Nitrate (Negative) Urine Bilirubin (Negative) Urine Urobilinogen (<2.0) mg/dL Leukocyte Esterase Rfl (Negative) DANIELA/UL Urine RBC (0-2) /hpf Urine WBC (0-3) /hpf Ur Squamous Epith Cells (Few) /hpf Urine Bacteria /hpf Urine Casts Influenza A (RT-PCR) (Negative) Influenza B (RT-PCR) (Negative) RSV (RT-PCR) (Negative) SARS-CoV-2 RNA (RT-PCR) (Negative) 04/22/25 04/22/25 04/22/25 Range/Units 03:27 03:27 03:27 WBC RBC Hgb 10.3 L Hct Cancelled 32.1 L MCV Cancelled 75.7 L MCH Cancelled MCHC RDW Plt Count MPV Immature Gran % (Auto) Neut % (Auto) Lymph % (Auto) [place] % (Auto) Eos % (Auto) Baso % (Auto) Lymph # (Auto) [place] # (Auto) Eos # (Auto) Baso # (Auto) Abs Immat Gran (auto) Absolute Neuts (auto) Absolute Nucleated RBC Band Neutrophils % Nucleated RBC % Platelet Estimate (Adequate) % Immature Plt Fraction Hypochromasia Anisocytosis Target Cells Ovalocytes Schistocytes ESR (0-20) mm/hr Sodium (137-145) mmol/L Potassium (3.4-5.0) mmol/L Chloride (98-107) mmol/L Carbon Dioxide (22-30) mmol/L Anion Gap (4-12) mmol/L BUN (9-20) mg/dL Creatinine (0.7-1.3) mg/dL Estim Creat Clear Calc Estimated GFR (59 - ) Glucose (65-110) mg/dL Lactic Acid (0.7-2.0) mmol/L Calcium (8.4-10.2) mg/dL Magnesium (1.6-2.3) mg/dL Total Bilirubin (0.2-1.3) mg/dL AST (17-59) U/L ALT (6-50) U/L Alkaline Phosphatase (38-126) U/L Troponin I (0.000-0.034) ng/mL C-Reactive Protein (<1.0) mg/dL Total Protein (6.3-8.2) g/dL Albumin (3.5-5.1) g/dL Procalcitonin ng/mL Urine Color (Yellow) Urine Appearance (Clear) Urine pH (5.0-9.0) Ur Specific [place] (1.001-1.035) Urine Protein (Negative) mg/dL Urine Glucose (UA) (Negative) mg/dL Urine Ketones (Negative) mg/dL Ur Blood (Man) (Negative) Urine Nitrate (Negative) Urine Bilirubin (Negative) Urine Urobilinogen (<2.0) mg/dL Leukocyte Esterase Rfl (Negative) DANIELA/UL Urine RBC (0-2) /hpf Urine WBC (0-3) /hpf Ur Squamous Epith Cells (Few) /hpf Urine Bacteria /hpf Urine Casts Influenza A (RT-PCR) (Negative) Influenza B (RT-PCR) (Negative) RSV (RT-PCR) (Negative) SARS-CoV-2 RNA (RT-PCR) (Negative) 04/22/25 04/22/25 04/22/25 Range/Units 03:27 03:27 03:27 WBC RBC Hgb Hct MCV MCH 24.3 L MCHC Cancelled 32.1 RDW Cancelled 23.9 H Plt Count Cancelled MPV Immature Gran % (Auto) Neut % (Auto) Lymph % (Auto) [place] % (Auto) Eos % (Auto) Baso % (Auto) Lymph # (Auto) [place] # (Auto) Eos # (Auto) Baso # (Auto) Abs Immat Gran (auto) Absolute Neuts (auto) Absolute Nucleated RBC Band Neutrophils % Nucleated RBC % Platelet Estimate (Adequate) % Immature Plt Fraction Hypochromasia Anisocytosis Target Cells Ovalocytes Schistocytes ESR (0-20) mm/hr Sodium (137-145) mmol/L Potassium (3.4-5.0) mmol/L Chloride (98-107) mmol/L Carbon Dioxide (22-30) mmol/L Anion Gap (4-12) mmol/L BUN (9-20) mg/dL Creatinine (0.7-1.3) mg/dL Estim Creat Clear Calc Estimated GFR (59 - ) Glucose (65-110) mg/dL Lactic Acid (0.7-2.0) mmol/L Calcium (8.4-10.2) mg/dL Magnesium (1.6-2.3) mg/dL Total Bilirubin (0.2-1.3) mg/dL AST (17-59) U/L ALT (6-50) U/L Alkaline Phosphatase (38-126) U/L Troponin I (0.000-0.034) ng/mL C-Reactive Protein (<1.0) mg/dL Total Protein (6.3-8.2) g/dL Albumin (3.5-5.1) g/dL Procalcitonin ng/mL Urine Color (Yellow) Urine Appearance (Clear) Urine pH (5.0-9.0) Ur Specific [place] (1.001-1.035) Urine Protein (Negative) mg/dL Urine Glucose (UA) (Negative) mg/dL Urine Ketones (Negative) mg/dL Ur Blood (Man) (Negative) Urine Nitrate (Negative) Urine Bilirubin (Negative) Urine Urobilinogen (<2.0) mg/dL Leukocyte Esterase Rfl (Negative) DANIELA/UL Urine RBC (0-2) /hpf Urine WBC (0-3) /hpf Ur Squamous Epith Cells (Few) /hpf Urine Bacteria /hpf Urine Casts Influenza A (RT-PCR) (Negative) Influenza B (RT-PCR) (Negative) RSV (RT-PCR) (Negative) SARS-CoV-2 RNA (RT-PCR) (Negative) 04/22/25 04/22/25 04/22/25 Range/Units 03:27 03:27 03:27 WBC RBC Hgb Hct MCV MCH MCHC RDW Plt Count 372 D MPV Cancelled 9.1 Immature Gran % (Auto) Cancelled 0.5 Neut % (Auto) Cancelled Lymph % (Auto) [place] % (Auto) Eos % (Auto) Baso % (Auto) Lymph # (Auto) [place] # (Auto) Eos # (Auto) Baso # (Auto) Abs Immat Gran (auto) Absolute Neuts (auto) Absolute Nucleated RBC Band Neutrophils % Nucleated RBC % Platelet Estimate (Adequate) % Immature Plt Fraction Hypochromasia Anisocytosis Target Cells Ovalocytes Schistocytes ESR (0-20) mm/hr Sodium (137-145) mmol/L Potassium (3.4-5.0) mmol/L Chloride (98-107) mmol/L Carbon Dioxide (22-30) mmol/L Anion Gap (4-12) mmol/L BUN (9-20) mg/dL Creatinine (0.7-1.3) mg/dL Estim Creat Clear Calc Estimated GFR (59 - ) Glucose (65-110) mg/dL Lactic Acid (0.7-2.0) mmol/L Calcium (8.4-10.2) mg/dL Magnesium (1.6-2.3) mg/dL Total Bilirubin (0.2-1.3) mg/dL AST (17-59) U/L ALT (6-50) U/L Alkaline Phosphatase (38-126) U/L Troponin I (0.000-0.034) ng/mL C-Reactive Protein (<1.0) mg/dL Total Protein (6.3-8.2) g/dL Albumin (3.5-5.1) g/dL Procalcitonin ng/mL Urine Color (Yellow) Urine Appearance (Clear) Urine pH (5.0-9.0) Ur Specific [place] (1.001-1.035) Urine Protein (Negative) mg/dL Urine Glucose (UA) (Negative) mg/dL Urine Ketones (Negative) mg/dL Ur Blood (Man) (Negative) Urine Nitrate (Negative) Urine Bilirubin (Negative) Urine Urobilinogen (<2.0) mg/dL Leukocyte Esterase Rfl (Negative) DANIELA/UL Urine RBC (0-2) /hpf Urine WBC (0-3) /hpf Ur Squamous Epith Cells (Few) /hpf Urine Bacteria /hpf Urine Casts Influenza A (RT-PCR) (Negative) Influenza B (RT-PCR) (Negative) RSV (RT-PCR) (Negative) SARS-CoV-2 RNA (RT-PCR) (Negative) 04/22/25 04/22/25 04/22/25 Range/Units 03:27 03:27 03:27 WBC RBC Hgb Hct MCV MCH MCHC RDW Plt Count MPV Immature Gran % (Auto) Neut % (Auto) 71.7 Lymph % (Auto) Cancelled 16.7 L [place] % (Auto) Cancelled 7.1 Eos % (Auto) Cancelled Baso % (Auto) Lymph # (Auto) [place] # (Auto) Eos # (Auto) Baso # (Auto) Abs Immat Gran (auto) Absolute Neuts (auto) Absolute Nucleated RBC Band Neutrophils % Nucleated RBC % Platelet Estimate (Adequate) % Immature Plt Fraction Hypochromasia Anisocytosis Target Cells Ovalocytes Schistocytes ESR (0-20) mm/hr Sodium (137-145) mmol/L Potassium (3.4-5.0) mmol/L Chloride (98-107) mmol/L Carbon Dioxide (22-30) mmol/L Anion Gap (4-12) mmol/L BUN (9-20) mg/dL Creatinine (0.7-1.3) mg/dL Estim Creat Clear Calc Estimated GFR (59 - ) Glucose (65-110) mg/dL Lactic Acid (0.7-2.0) mmol/L Calcium (8.4-10.2) mg/dL Magnesium (1.6-2.3) mg/dL Total Bilirubin (0.2-1.3) mg/dL AST (17-59) U/L ALT (6-50) U/L Alkaline Phosphatase (38-126) U/L Troponin I (0.000-0.034) ng/mL C-Reactive Protein (<1.0) mg/dL Total Protein (6.3-8.2) g/dL Albumin (3.5-5.1) g/dL Procalcitonin ng/mL Urine Color (Yellow) Urine Appearance (Clear) Urine pH (5.0-9.0) Ur Specific [place] (1.001-1.035) Urine Protein (Negative) mg/dL Urine Glucose (UA) (Negative) mg/dL Urine Ketones (Negative) mg/dL Ur Blood (Man) (Negative) Urine Nitrate (Negative) Urine Bilirubin (Negative) Urine Urobilinogen (<2.0) mg/dL Leukocyte Esterase Rfl (Negative) DANIELA/UL Urine RBC (0-2) /hpf Urine WBC (0-3) /hpf Ur Squamous Epith Cells (Few) /hpf Urine Bacteria /hpf Urine Casts Influenza A (RT-PCR) (Negative) Influenza B (RT-PCR) (Negative) RSV (RT-PCR) (Negative) SARS-CoV-2 RNA (RT-PCR) (Negative) 04/22/25 04/22/25 04/22/25 Range/Units 03:27 03:27 03:27 WBC RBC Hgb Hct MCV MCH MCHC RDW Plt Count MPV Immature Gran % (Auto) Neut % (Auto) Lymph % (Auto) [place] % (Auto) Eos % (Auto) 3.3 Baso % (Auto) Cancelled 0.7 Lymph # (Auto) Cancelled 1.85 [place] # (Auto) Cancelled Eos # (Auto) Baso # (Auto) Abs Immat Gran (auto) Absolute Neuts (auto) Absolute Nucleated RBC Band Neutrophils % Nucleated RBC % Platelet Estimate (Adequate) % Immature Plt Fraction Hypochromasia Anisocytosis Target Cells Ovalocytes Schistocytes ESR (0-20) mm/hr Sodium (137-145) mmol/L Potassium (3.4-5.0) mmol/L Chloride (98-107) mmol/L Carbon Dioxide (22-30) mmol/L Anion Gap (4-12) mmol/L BUN (9-20) mg/dL Creatinine (0.7-1.3) mg/dL Estim Creat Clear Calc Estimated GFR (59 - ) Glucose (65-110) mg/dL Lactic Acid (0.7-2.0) mmol/L Calcium (8.4-10.2) mg/dL Magnesium (1.6-2.3) mg/dL Total Bilirubin (0.2-1.3) mg/dL AST (17-59) U/L ALT (6-50) U/L Alkaline Phosphatase (38-126) U/L Troponin I (0.000-0.034) ng/mL C-Reactive Protein (<1.0) mg/dL Total Protein (6.3-8.2) g/dL Albumin (3.5-5.1) g/dL Procalcitonin ng/mL Urine Color (Yellow) Urine Appearance (Clear) Urine pH (5.0-9.0) Ur Specific [place] (1.001-1.035) Urine Protein (Negative) mg/dL Urine Glucose (UA) (Negative) mg/dL Urine Ketones (Negative) mg/dL Ur Blood (Man) (Negative) Urine Nitrate (Negative) Urine Bilirubin (Negative) Urine Urobilinogen (<2.0) mg/dL Leukocyte Esterase Rfl (Negative) DANIELA/UL Urine RBC (0-2) /hpf Urine WBC (0-3) /hpf Ur Squamous Epith Cells (Few) /hpf Urine Bacteria /hpf Urine Casts Influenza A (RT-PCR) (Negative) Influenza B (RT-PCR) (Negative) RSV (RT-PCR) (Negative) SARS-CoV-2 RNA (RT-PCR) (Negative) 04/22/25 04/22/25 04/22/25 Range/Units 03:27 03:27 03:27 WBC RBC Hgb Hct MCV MCH MCHC RDW Plt Count MPV Immature Gran % (Auto) Neut % (Auto) Lymph % (Auto) [place] % (Auto) Eos % (Auto) Baso % (Auto) Lymph # (Auto) [place] # (Auto) 0.8 H Eos # (Auto) Cancelled 0.4 H Baso # (Auto) Cancelled 0.1 Abs Immat Gran (auto) Cancelled Absolute Neuts (auto) Absolute Nucleated RBC Band Neutrophils % Nucleated RBC % Platelet Estimate (Adequate) % Immature Plt Fraction Hypochromasia Anisocytosis Target Cells Ovalocytes Schistocytes ESR (0-20) mm/hr Sodium (137-145) mmol/L Potassium (3.4-5.0) mmol/L Chloride (98-107) mmol/L Carbon Dioxide (22-30) mmol/L Anion Gap (4-12) mmol/L BUN (9-20) mg/dL Creatinine (0.7-1.3) mg/dL Estim Creat Clear Calc Estimated GFR (59 - ) Glucose (65-110) mg/dL Lactic Acid (0.7-2.0) mmol/L Calcium (8.4-10.2) mg/dL Magnesium (1.6-2.3) mg/dL Total Bilirubin (0.2-1.3) mg/dL AST (17-59) U/L ALT (6-50) U/L Alkaline Phosphatase (38-126) U/L Troponin I (0.000-0.034) ng/mL C-Reactive Protein (<1.0) mg/dL Total Protein (6.3-8.2) g/dL Albumin (3.5-5.1) g/dL Procalcitonin ng/mL Urine Color (Yellow) Urine Appearance (Clear) Urine pH (5.0-9.0) Ur Specific [place] (1.001-1.035) Urine Protein (Negative) mg/dL Urine Glucose (UA) (Negative) mg/dL Urine Ketones (Negative) mg/dL Ur Blood (Man) (Negative) Urine Nitrate (Negative) Urine Bilirubin (Negative) Urine Urobilinogen (<2.0) mg/dL Leukocyte Esterase Rfl (Negative) DANIELA/UL Urine RBC (0-2) /hpf Urine WBC (0-3) /hpf Ur Squamous Epith Cells (Few) /hpf Urine Bacteria /hpf Urine Casts Influenza A (RT-PCR) (Negative) Influenza B (RT-PCR) (Negative) RSV (RT-PCR) (Negative) SARS-CoV-2 RNA (RT-PCR) (Negative) 04/22/25 04/22/25 04/22/25 Range/Units 03:27 03:27 03:27 WBC RBC Hgb Hct MCV MCH MCHC RDW Plt Count MPV Immature Gran % (Auto) Neut % (Auto) Lymph % (Auto) [place] % (Auto) Eos % (Auto) Baso % (Auto) Lymph # (Auto) [place] # (Auto) Eos # (Auto) Baso # (Auto) Abs Immat Gran (auto) 0.06 H Absolute Neuts (auto) Cancelled 7.9 H Absolute Nucleated RBC Cancelled 0.000 Band Neutrophils % Not Reportable Nucleated RBC % Cancelled Platelet Estimate (Adequate) % Immature Plt Fraction Hypochromasia Anisocytosis Target Cells Ovalocytes Schistocytes ESR (0-20) mm/hr Sodium (137-145) mmol/L Potassium (3.4-5.0) mmol/L Chloride (98-107) mmol/L Carbon Dioxide (22-30) mmol/L Anion Gap (4-12) mmol/L BUN (9-20) mg/dL Creatinine (0.7-1.3) mg/dL Estim Creat Clear Calc Estimated GFR (59 - ) Glucose (65-110) mg/dL Lactic Acid (0.7-2.0) mmol/L Calcium (8.4-10.2) mg/dL Magnesium (1.6-2.3) mg/dL Total Bilirubin (0.2-1.3) mg/dL AST (17-59) U/L ALT (6-50) U/L Alkaline Phosphatase (38-126) U/L Troponin I (0.000-0.034) ng/mL C-Reactive Protein (<1.0) mg/dL Total Protein (6.3-8.2) g/dL Albumin (3.5-5.1) g/dL Procalcitonin ng/mL Urine Color (Yellow) Urine Appearance (Clear) Urine pH (5.0-9.0) Ur Specific [place] (1.001-1.035) Urine Protein (Negative) mg/dL Urine Glucose (UA) (Negative) mg/dL Urine Ketones (Negative) mg/dL Ur Blood (Man) (Negative) Urine Nitrate (Negative) Urine Bilirubin (Negative) Urine Urobilinogen (<2.0) mg/dL Leukocyte Esterase Rfl (Negative) DANIELA/UL Urine RBC (0-2) /hpf Urine WBC (0-3) /hpf Ur Squamous Epith Cells (Few) /hpf Urine Bacteria /hpf Urine Casts Influenza A (RT-PCR) (Negative) Influenza B (RT-PCR) (Negative) RSV (RT-PCR) (Negative) SARS-CoV-2 RNA (RT-PCR) (Negative) 04/22/25 04/22/25 04/22/25 Range/Units 03:27 03:41 05:49 WBC RBC Hgb Hct MCV MCH MCHC RDW Plt Count MPV Immature Gran % (Auto) Neut % (Auto) Lymph % (Auto) [place] % (Auto) Eos % (Auto) Baso % (Auto) Lymph # (Auto) [place] # (Auto) Eos # (Auto) Baso # (Auto) Abs Immat Gran (auto) Absolute Neuts (auto) Absolute Nucleated RBC Band Neutrophils % Nucleated RBC % 0.0 Platelet Estimate Adequate (Adequate) % Immature Plt Fraction Cancelled Hypochromasia 1+ Anisocytosis 1+ Target Cells Occasional Ovalocytes Occasional Schistocytes None seen ESR 128 H (0-20) mm/hr Sodium 138 (137-145) mmol/L Potassium 3.2 L (3.4-5.0) mmol/L Chloride 105 (98-107) mmol/L Carbon Dioxide 22 (22-30) mmol/L Anion Gap 11 (4-12) mmol/L BUN 19 (9-20) mg/dL Creatinine 0.42 L (0.7-1.3) mg/dL Estim Creat Clear Calc Not Reportable Estimated GFR > 60 (59 - ) Glucose 112 H (65-110) mg/dL Lactic Acid 1.3 (0.7-2.0) mmol/L Calcium 9.0 (8.4-10.2) mg/dL Magnesium 1.2 L (1.6-2.3) mg/dL Total Bilirubin 0.5 (0.2-1.3) mg/dL AST 25 (17-59) U/L ALT 16 (6-50) U/L Alkaline Phosphatase 118 (38-126) U/L Troponin I 0.016 (0.000-0.034) ng/mL C-Reactive Protein 3.1 H (<1.0) mg/dL Total Protein 7.5 (6.3-8.2) g/dL Albumin 3.3 L (3.5-5.1) g/dL Procalcitonin 0.1 ng/mL Urine Color Yellow (Yellow) Urine Appearance Cloudy H (Clear) Urine pH 5.0 (5.0-9.0) Ur Specific [place] 1.029 (1.001-1.035) Urine Protein 2+ H (Negative) mg/dL Urine Glucose (UA) Negative (Negative) mg/dL Urine Ketones 1+ H (Negative) mg/dL Ur Blood (Man) 3+ H (Negative) Urine Nitrate Negative (Negative) Urine Bilirubin Negative (Negative) Urine Urobilinogen 0.2 (<2.0) mg/dL Leukocyte Esterase Rfl 1+ H (Negative) DANIELA/UL Urine RBC 0-2 (0-2) /hpf Urine WBC 21-50 H (0-3) /hpf Ur Squamous Epith Cells None seen (Few) /hpf Urine Bacteria None seen /hpf Urine Casts 3-5 Influenza A (RT-PCR) Negative (Negative) Influenza B (RT-PCR) Negative (Negative) RSV (RT-PCR) Negative (Negative) SARS-CoV-2 RNA (RT-PCR) Negative (Negative) 04/22/25 Range/Units 06:48 WBC RBC Hgb Hct MCV MCH MCHC RDW Plt Count MPV Immature Gran % (Auto) Neut % (Auto) Lymph % (Auto) [place] % (Auto) Eos % (Auto) Baso % (Auto) Lymph # (Auto) [place] # (Auto) Eos # (Auto) Baso # (Auto) Abs Immat Gran (auto) Absolute Neuts (auto) Absolute Nucleated RBC Band Neutrophils % Nucleated RBC % Platelet Estimate (Adequate) % Immature Plt Fraction Hypochromasia Anisocytosis Target Cells Ovalocytes Schistocytes ESR (0-20) mm/hr Sodium (137-145) mmol/L Potassium (3.4-5.0) mmol/L Chloride (98-107) mmol/L Carbon Dioxide (22-30) mmol/L Anion Gap (4-12) mmol/L BUN (9-20) mg/dL Creatinine (0.7-1.3) mg/dL Estim Creat Clear Calc Estimated GFR (59 - ) Glucose (65-110) mg/dL Lactic Acid (0.7-2.0) mmol/L Calcium (8.4-10.2) mg/dL Magnesium (1.6-2.3) mg/dL Total Bilirubin (0.2-1.3) mg/dL AST (17-59) U/L ALT (6-50) U/L Alkaline Phosphatase (38-126) U/L Troponin I 0.064 H* D (0.000-0.034) ng/mL C-Reactive Protein (<1.0) mg/dL Total Protein (6.3-8.2) g/dL Albumin (3.5-5.1) g/dL Procalcitonin ng/mL Urine Color (Yellow) Urine Appearance (Clear) Urine pH (5.0-9.0) Ur Specific [place] (1.001-1.035) Urine Protein (Negative) mg/dL Urine Glucose (UA) (Negative) mg/dL Urine Ketones (Negative) mg/dL Ur Blood (Man) (Negative) Urine Nitrate (Negative) Urine Bilirubin (Negative) Urine Urobilinogen (<2.0) mg/dL Leukocyte Esterase Rfl (Negative) DANIELA/UL Urine RBC (0-2) /hpf Urine WBC (0-3) /hpf Ur Squamous Epith Cells (Few) /hpf Urine Bacteria /hpf Urine Casts Influenza A (RT-PCR) (Negative) Influenza B (RT-PCR) (Negative) RSV (RT-PCR) (Negative) SARS-CoV-2 RNA (RT-PCR) (Negative) <Gutierrez Carmona MD - Last Filed: 04/22/25 07:09> Lab Results 04/22/25 04/22/25 04/22/25 Range/Units 03:27 03:27 03:27 WBC Cancelled 11.1 H RBC Cancelled 4.24 L Hgb Cancelled Hct MCV MCH MCHC RDW Plt Count MPV Immature Gran % (Auto) Neut % (Auto) Lymph % (Auto) [place] % (Auto) Eos % (Auto) Baso % (Auto) Lymph # (Auto) [place] # (Auto) Eos # (Auto) Baso # (Auto) Abs Immat Gran (auto) Absolute Neuts (auto) Absolute Nucleated RBC Band Neutrophils % Nucleated RBC % Platelet Estimate (Adequate) % Immature Plt Fraction Hypochromasia Anisocytosis Target Cells Ovalocytes Schistocytes ESR (0-20) mm/hr Sodium (137-145) mmol/L Potassium (3.4-5.0) mmol/L Chloride (98-107) mmol/L Carbon Dioxide (22-30) mmol/L Anion Gap (4-12) mmol/L BUN (9-20) mg/dL Creatinine (0.7-1.3) mg/dL Estim Creat Clear Calc Estimated GFR (59 - ) Glucose (65-110) mg/dL Lactic Acid (0.7-2.0) mmol/L Calcium (8.4-10.2) mg/dL Magnesium (1.6-2.3) mg/dL Total Bilirubin (0.2-1.3) mg/dL AST (17-59) U/L ALT (6-50) U/L Alkaline Phosphatase (38-126) U/L Troponin I (0.000-0.034) ng/mL C-Reactive Protein (<1.0) mg/dL Total Protein (6.3-8.2) g/dL Albumin (3.5-5.1) g/dL Procalcitonin ng/mL Urine Color (Yellow) Urine Appearance (Clear) Urine pH (5.0-9.0) Ur Specific [place] (1.001-1.035) Urine Protein (Negative) mg/dL Urine Glucose (UA) (Negative) mg/dL Urine Ketones (Negative) mg/dL Ur Blood (Man) (Negative) Urine Nitrate (Negative) Urine Bilirubin (Negative) Urine Urobilinogen (<2.0) mg/dL Leukocyte Esterase Rfl (Negative) DANIELA/UL Urine RBC (0-2) /hpf Urine WBC (0-3) /hpf Ur Squamous Epith Cells (Few) /hpf Urine Bacteria /hpf Urine Casts Influenza A (RT-PCR) (Negative) Influenza B (RT-PCR) (Negative) RSV (RT-PCR) (Negative) SARS-CoV-2 RNA (RT-PCR) (Negative) 04/22/25 04/22/25 04/22/25 Range/Units 03:27 03:27 03:27 WBC RBC Hgb 10.3 L Hct Cancelled 32.1 L MCV Cancelled 75.7 L MCH Cancelled MCHC RDW Plt Count MPV Immature Gran % (Auto) Neut % (Auto) Lymph % (Auto) [place] % (Auto) Eos % (Auto) Baso % (Auto) Lymph # (Auto) [place] # (Auto) Eos # (Auto) Baso # (Auto) Abs Immat Gran (auto) Absolute Neuts (auto) Absolute Nucleated RBC Band Neutrophils % Nucleated RBC % Platelet Estimate (Adequate) % Immature Plt Fraction Hypochromasia Anisocytosis Target Cells Ovalocytes Schistocytes ESR (0-20) mm/hr Sodium (137-145) mmol/L Potassium (3.4-5.0) mmol/L Chloride (98-107) mmol/L Carbon Dioxide (22-30) mmol/L Anion Gap (4-12) mmol/L BUN (9-20) mg/dL Creatinine (0.7-1.3) mg/dL Estim Creat Clear Calc Estimated GFR (59 - ) Glucose (65-110) mg/dL Lactic Acid (0.7-2.0) mmol/L Calcium (8.4-10.2) mg/dL Magnesium (1.6-2.3) mg/dL Total Bilirubin (0.2-1.3) mg/dL AST (17-59) U/L ALT (6-50) U/L Alkaline Phosphatase (38-126) U/L Troponin I (0.000-0.034) ng/mL C-Reactive Protein (<1.0) mg/dL Total Protein (6.3-8.2) g/dL Albumin (3.5-5.1) g/dL Procalcitonin ng/mL Urine Color (Yellow) Urine Appearance (Clear) Urine pH (5.0-9.0) Ur Specific [place] (1.001-1.035) Urine Protein (Negative) mg/dL Urine Glucose (UA) (Negative) mg/dL Urine Ketones (Negative) mg/dL Ur Blood (Man) (Negative) Urine Nitrate (Negative) Urine Bilirubin (Negative) Urine Urobilinogen (<2.0) mg/dL Leukocyte Esterase Rfl (Negative) DANIELA/UL Urine RBC (0-2) /hpf Urine WBC (0-3) /hpf Ur Squamous Epith Cells (Few) /hpf Urine Bacteria /hpf Urine Casts Influenza A (RT-PCR) (Negative) Influenza B (RT-PCR) (Negative) RSV (RT-PCR) (Negative) SARS-CoV-2 RNA (RT-PCR) (Negative) 04/22/25 04/22/25 04/22/25 Range/Units 03:27 03:27 03:27 WBC RBC Hgb Hct MCV MCH 24.3 L MCHC Cancelled 32.1 RDW Cancelled 23.9 H Plt Count Cancelled MPV Immature Gran % (Auto) Neut % (Auto) Lymph % (Auto) [place] % (Auto) Eos % (Auto) Baso % (Auto) Lymph # (Auto) [place] # (Auto) Eos # (Auto) Baso # (Auto) Abs Immat Gran (auto) Absolute Neuts (auto) Absolute Nucleated RBC Band Neutrophils % Nucleated RBC % Platelet Estimate (Adequate) % Immature Plt Fraction Hypochromasia Anisocytosis Target Cells Ovalocytes Schistocytes ESR (0-20) mm/hr Sodium (137-145) mmol/L Potassium (3.4-5.0) mmol/L Chloride (98-107) mmol/L Carbon Dioxide (22-30) mmol/L Anion Gap (4-12) mmol/L BUN (9-20) mg/dL Creatinine (0.7-1.3) mg/dL Estim Creat Clear Calc Estimated GFR (59 - ) Glucose (65-110) mg/dL Lactic Acid (0.7-2.0) mmol/L Calcium (8.4-10.2) mg/dL Magnesium (1.6-2.3) mg/dL Total Bilirubin (0.2-1.3) mg/dL AST (17-59) U/L ALT (6-50) U/L Alkaline Phosphatase (38-126) U/L Troponin I (0.000-0.034) ng/mL C-Reactive Protein (<1.0) mg/dL Total Protein (6.3-8.2) g/dL Albumin (3.5-5.1) g/dL Procalcitonin ng/mL Urine Color (Yellow) Urine Appearance (Clear) Urine pH (5.0-9.0) Ur Specific [place] (1.001-1.035) Urine Protein (Negative) mg/dL Urine Glucose (UA) (Negative) mg/dL Urine Ketones (Negative) mg/dL Ur Blood (Man) (Negative) Urine Nitrate (Negative) Urine Bilirubin (Negative) Urine Urobilinogen (<2.0) mg/dL Leukocyte Esterase Rfl (Negative) DANIELA/UL Urine RBC (0-2) /hpf Urine WBC (0-3) /hpf Ur Squamous Epith Cells (Few) /hpf Urine Bacteria /hpf Urine Casts Influenza A (RT-PCR) (Negative) Influenza B (RT-PCR) (Negative) RSV (RT-PCR) (Negative) SARS-CoV-2 RNA (RT-PCR) (Negative) 04/22/25 04/22/25 04/22/25 Range/Units 03:27 03:27 03:27 WBC RBC Hgb Hct MCV MCH MCHC RDW Plt Count 372 D MPV Cancelled 9.1 Immature Gran % (Auto) Cancelled 0.5 Neut % (Auto) Cancelled Lymph % (Auto) [place] % (Auto) Eos % (Auto) Baso % (Auto) Lymph # (Auto) [place] # (Auto) Eos # (Auto) Baso # (Auto) Abs Immat Gran (auto) Absolute Neuts (auto) Absolute Nucleated RBC Band Neutrophils % Nucleated RBC % Platelet Estimate (Adequate) % Immature Plt Fraction Hypochromasia Anisocytosis Target Cells Ovalocytes Schistocytes ESR (0-20) mm/hr Sodium (137-145) mmol/L Potassium (3.4-5.0) mmol/L Chloride (98-107) mmol/L Carbon Dioxide (22-30) mmol/L Anion Gap (4-12) mmol/L BUN (9-20) mg/dL Creatinine (0.7-1.3) mg/dL Estim Creat Clear Calc Estimated GFR (59 - ) Glucose (65-110) mg/dL Lactic Acid (0.7-2.0) mmol/L Calcium (8.4-10.2) mg/dL Magnesium (1.6-2.3) mg/dL Total Bilirubin (0.2-1.3) mg/dL AST (17-59) U/L ALT (6-50) U/L Alkaline Phosphatase (38-126) U/L Troponin I (0.000-0.034) ng/mL C-Reactive Protein (<1.0) mg/dL Total Protein (6.3-8.2) g/dL Albumin (3.5-5.1) g/dL Procalcitonin ng/mL Urine Color (Yellow) Urine Appearance (Clear) Urine pH (5.0-9.0) Ur Specific [place] (1.001-1.035) Urine Protein (Negative) mg/dL Urine Glucose (UA) (Negative) mg/dL Urine Ketones (Negative) mg/dL Ur Blood (Man) (Negative) Urine Nitrate (Negative) Urine Bilirubin (Negative) Urine Urobilinogen (<2.0) mg/dL Leukocyte Esterase Rfl (Negative) DANIELA/UL Urine RBC (0-2) /hpf Urine WBC (0-3) /hpf Ur Squamous Epith Cells (Few) /hpf Urine Bacteria /hpf Urine Casts Influenza A (RT-PCR) (Negative) Influenza B (RT-PCR) (Negative) RSV (RT-PCR) (Negative) SARS-CoV-2 RNA (RT-PCR) (Negative) 04/22/25 04/22/25 04/22/25 Range/Units 03:27 03:27 03:27 WBC RBC Hgb Hct MCV MCH MCHC RDW Plt Count MPV Immature Gran % (Auto) Neut % (Auto) 71.7 Lymph % (Auto) Cancelled 16.7 L [place] % (Auto) Cancelled 7.1 Eos % (Auto) Cancelled Baso % (Auto) Lymph # (Auto) [place] # (Auto) Eos # (Auto) Baso # (Auto) Abs Immat Gran (auto) Absolute Neuts (auto) Absolute Nucleated RBC Band Neutrophils % Nucleated RBC % Platelet Estimate (Adequate) % Immature Plt Fraction Hypochromasia Anisocytosis Target Cells Ovalocytes Schistocytes ESR (0-20) mm/hr Sodium (137-145) mmol/L Potassium (3.4-5.0) mmol/L Chloride (98-107) mmol/L Carbon Dioxide (22-30) mmol/L Anion Gap (4-12) mmol/L BUN (9-20) mg/dL Creatinine (0.7-1.3) mg/dL Estim Creat Clear Calc Estimated GFR (59 - ) Glucose (65-110) mg/dL Lactic Acid (0.7-2.0) mmol/L Calcium (8.4-10.2) mg/dL Magnesium (1.6-2.3) mg/dL Total Bilirubin (0.2-1.3) mg/dL AST (17-59) U/L ALT (6-50) U/L Alkaline Phosphatase (38-126) U/L Troponin I (0.000-0.034) ng/mL C-Reactive Protein (<1.0) mg/dL Total Protein (6.3-8.2) g/dL Albumin (3.5-5.1) g/dL Procalcitonin ng/mL Urine Color (Yellow) Urine Appearance (Clear) Urine pH (5.0-9.0) Ur Specific [place] (1.001-1.035) Urine Protein (Negative) mg/dL Urine Glucose (UA) (Negative) mg/dL Urine Ketones (Negative) mg/dL Ur Blood (Man) (Negative) Urine Nitrate (Negative) Urine Bilirubin (Negative) Urine Urobilinogen (<2.0) mg/dL Leukocyte Esterase Rfl (Negative) DANIELA/UL Urine RBC (0-2) /hpf Urine WBC (0-3) /hpf Ur Squamous Epith Cells (Few) /hpf Urine Bacteria /hpf Urine Casts Influenza A (RT-PCR) (Negative) Influenza B (RT-PCR) (Negative) RSV (RT-PCR) (Negative) SARS-CoV-2 RNA (RT-PCR) (Negative) 04/22/25 04/22/25 04/22/25 Range/Units 03:27 03:27 03:27 WBC RBC Hgb Hct MCV MCH MCHC RDW Plt Count MPV Immature Gran % (Auto) Neut % (Auto) Lymph % (Auto) [place] % (Auto) Eos % (Auto) 3.3 Baso % (Auto) Cancelled 0.7 Lymph # (Auto) Cancelled 1.85 [place] # (Auto) Cancelled Eos # (Auto) Baso # (Auto) Abs Immat Gran (auto) Absolute Neuts (auto) Absolute Nucleated RBC Band Neutrophils % Nucleated RBC % Platelet Estimate (Adequate) % Immature Plt Fraction Hypochromasia Anisocytosis Target Cells Ovalocytes Schistocytes ESR (0-20) mm/hr Sodium (137-145) mmol/L Potassium (3.4-5.0) mmol/L Chloride (98-107) mmol/L Carbon Dioxide (22-30) mmol/L Anion Gap (4-12) mmol/L BUN (9-20) mg/dL Creatinine (0.7-1.3) mg/dL Estim Creat Clear Calc Estimated GFR (59 - ) Glucose (65-110) mg/dL Lactic Acid (0.7-2.0) mmol/L Calcium (8.4-10.2) mg/dL Magnesium (1.6-2.3) mg/dL Total Bilirubin (0.2-1.3) mg/dL AST (17-59) U/L ALT (6-50) U/L Alkaline Phosphatase (38-126) U/L Troponin I (0.000-0.034) ng/mL C-Reactive Protein (<1.0) mg/dL Total Protein (6.3-8.2) g/dL Albumin (3.5-5.1) g/dL Procalcitonin ng/mL Urine Color (Yellow) Urine Appearance (Clear) Urine pH (5.0-9.0) Ur Specific [place] (1.001-1.035) Urine Protein (Negative) mg/dL Urine Glucose (UA) (Negative) mg/dL Urine Ketones (Negative) mg/dL Ur Blood (Man) (Negative) Urine Nitrate (Negative) Urine Bilirubin (Negative) Urine Urobilinogen (<2.0) mg/dL Leukocyte Esterase Rfl (Negative) DANIELA/UL Urine RBC (0-2) /hpf Urine WBC (0-3) /hpf Ur Squamous Epith Cells (Few) /hpf Urine Bacteria /hpf Urine Casts Influenza A (RT-PCR) (Negative) Influenza B (RT-PCR) (Negative) RSV (RT-PCR) (Negative) SARS-CoV-2 RNA (RT-PCR) (Negative) 04/22/25 04/22/25 04/22/25 Range/Units 03:27 03:27 03:27 WBC RBC Hgb Hct MCV MCH MCHC RDW Plt Count MPV Immature Gran % (Auto) Neut % (Auto) Lymph % (Auto) [place] % (Auto) Eos % (Auto) Baso % (Auto) Lymph # (Auto) [place] # (Auto) 0.8 H Eos # (Auto) Cancelled 0.4 H Baso # (Auto) Cancelled 0.1 Abs Immat Gran (auto) Cancelled Absolute Neuts (auto) Absolute Nucleated RBC Band Neutrophils % Nucleated RBC % Platelet Estimate (Adequate) % Immature Plt Fraction Hypochromasia Anisocytosis Target Cells Ovalocytes Schistocytes ESR (0-20) mm/hr Sodium (137-145) mmol/L Potassium (3.4-5.0) mmol/L Chloride (98-107) mmol/L Carbon Dioxide (22-30) mmol/L Anion Gap (4-12) mmol/L BUN (9-20) mg/dL Creatinine (0.7-1.3) mg/dL Estim Creat Clear Calc Estimated GFR (59 - ) Glucose (65-110) mg/dL Lactic Acid (0.7-2.0) mmol/L Calcium (8.4-10.2) mg/dL Magnesium (1.6-2.3) mg/dL Total Bilirubin (0.2-1.3) mg/dL AST (17-59) U/L ALT (6-50) U/L Alkaline Phosphatase (38-126) U/L Troponin I (0.000-0.034) ng/mL C-Reactive Protein (<1.0) mg/dL Total Protein (6.3-8.2) g/dL Albumin (3.5-5.1) g/dL Procalcitonin ng/mL Urine Color (Yellow) Urine Appearance (Clear) Urine pH (5.0-9.0) Ur Specific [place] (1.001-1.035) Urine Protein (Negative) mg/dL Urine Glucose (UA) (Negative) mg/dL Urine Ketones (Negative) mg/dL Ur Blood (Man) (Negative) Urine Nitrate (Negative) Urine Bilirubin (Negative) Urine Urobilinogen (<2.0) mg/dL Leukocyte Esterase Rfl (Negative) DANIELA/UL Urine RBC (0-2) /hpf Urine WBC (0-3) /hpf Ur Squamous Epith Cells (Few) /hpf Urine Bacteria /hpf Urine Casts Influenza A (RT-PCR) (Negative) Influenza B (RT-PCR) (Negative) RSV (RT-PCR) (Negative) SARS-CoV-2 RNA (RT-PCR) (Negative) 04/22/25 04/22/25 04/22/25 Range/Units 03:27 03:27 03:27 WBC RBC Hgb Hct MCV MCH MCHC RDW Plt Count MPV Immature Gran % (Auto) Neut % (Auto) Lymph % (Auto) [place] % (Auto) Eos % (Auto) Baso % (Auto) Lymph # (Auto) [place] # (Auto) Eos # (Auto) Baso # (Auto) Abs Immat Gran (auto) 0.06 H Absolute Neuts (auto) Cancelled 7.9 H Absolute Nucleated RBC Cancelled 0.000 Band Neutrophils % Not Reportable Nucleated RBC % Cancelled Platelet Estimate (Adequate) % Immature Plt Fraction Hypochromasia Anisocytosis Target Cells Ovalocytes Schistocytes ESR (0-20) mm/hr Sodium (137-145) mmol/L Potassium (3.4-5.0) mmol/L Chloride (98-107) mmol/L Carbon Dioxide (22-30) mmol/L Anion Gap (4-12) mmol/L BUN (9-20) mg/dL Creatinine (0.7-1.3) mg/dL Estim Creat Clear Calc Estimated GFR (59 - ) Glucose (65-110) mg/dL Lactic Acid (0.7-2.0) mmol/L Calcium (8.4-10.2) mg/dL Magnesium (1.6-2.3) mg/dL Total Bilirubin (0.2-1.3) mg/dL AST (17-59) U/L ALT (6-50) U/L Alkaline Phosphatase (38-126) U/L Troponin I (0.000-0.034) ng/mL C-Reactive Protein (<1.0) mg/dL Total Protein (6.3-8.2) g/dL Albumin (3.5-5.1) g/dL Procalcitonin ng/mL Urine Color (Yellow) Urine Appearance (Clear) Urine pH (5.0-9.0) Ur Specific [place] (1.001-1.035) Urine Protein (Negative) mg/dL Urine Glucose (UA) (Negative) mg/dL Urine Ketones (Negative) mg/dL Ur Blood (Man) (Negative) Urine Nitrate (Negative) Urine Bilirubin (Negative) Urine Urobilinogen (<2.0) mg/dL Leukocyte Esterase Rfl (Negative) DANIELA/UL Urine RBC (0-2) /hpf Urine WBC (0-3) /hpf Ur Squamous Epith Cells (Few) /hpf Urine Bacteria /hpf Urine Casts Influenza A (RT-PCR) (Negative) Influenza B (RT-PCR) (Negative) RSV (RT-PCR) (Negative) SARS-CoV-2 RNA (RT-PCR) (Negative) 04/22/25 04/22/25 04/22/25 Range/Units 03:27 03:41 05:49 WBC RBC Hgb Hct MCV MCH MCHC RDW Plt Count MPV Immature Gran % (Auto) Neut % (Auto) Lymph % (Auto) [place] % (Auto) Eos % (Auto) Baso % (Auto) Lymph # (Auto) [place] # (Auto) Eos # (Auto) Baso # (Auto) Abs Immat Gran (auto) Absolute Neuts (auto) Absolute Nucleated RBC Band Neutrophils % Nucleated RBC % 0.0 Platelet Estimate Adequate (Adequate) % Immature Plt Fraction Cancelled Hypochromasia 1+ Anisocytosis 1+ Target Cells Occasional Ovalocytes Occasional Schistocytes None seen ESR 128 H (0-20) mm/hr Sodium 138 (137-145) mmol/L Potassium 3.2 L (3.4-5.0) mmol/L Chloride 105 (98-107) mmol/L Carbon Dioxide 22 (22-30) mmol/L Anion Gap 11 (4-12) mmol/L BUN 19 (9-20) mg/dL Creatinine 0.42 L (0.7-1.3) mg/dL Estim Creat Clear Calc Not Reportable Estimated GFR > 60 (59 - ) Glucose 112 H (65-110) mg/dL Lactic Acid 1.3 (0.7-2.0) mmol/L Calcium 9.0 (8.4-10.2) mg/dL Magnesium 1.2 L (1.6-2.3) mg/dL Total Bilirubin 0.5 (0.2-1.3) mg/dL AST 25 (17-59) U/L ALT 16 (6-50) U/L Alkaline Phosphatase 118 (38-126) U/L Troponin I 0.016 (0.000-0.034) ng/mL C-Reactive Protein 3.1 H (<1.0) mg/dL Total Protein 7.5 (6.3-8.2) g/dL Albumin 3.3 L (3.5-5.1) g/dL Procalcitonin 0.1 ng/mL Urine Color Yellow (Yellow) Urine Appearance Cloudy H (Clear) Urine pH 5.0 (5.0-9.0) Ur Specific [place] 1.029 (1.001-1.035) Urine Protein 2+ H (Negative) mg/dL Urine Glucose (UA) Negative (Negative) mg/dL Urine Ketones 1+ H (Negative) mg/dL Ur Blood (Man) 3+ H (Negative) Urine Nitrate Negative (Negative) Urine Bilirubin Negative (Negative) Urine Urobilinogen 0.2 (<2.0) mg/dL Leukocyte Esterase Rfl 1+ H (Negative) DANIELA/UL Urine RBC 0-2 (0-2) /hpf Urine WBC 21-50 H (0-3) /hpf Ur Squamous Epith Cells None seen (Few) /hpf Urine Bacteria None seen /hpf Urine Casts 3-5 Influenza A (RT-PCR) Negative (Negative) Influenza B (RT-PCR) Negative (Negative) RSV (RT-PCR) Negative (Negative) SARS-CoV-2 RNA (RT-PCR) Negative (Negative) 04/22/25 Range/Units 06:48 WBC RBC Hgb Hct MCV MCH MCHC RDW Plt Count MPV Immature Gran % (Auto) Neut % (Auto) Lymph % (Auto) [place] % (Auto) Eos % (Auto) Baso % (Auto) Lymph # (Auto) [place] # (Auto) Eos # (Auto) Baso # (Auto) Abs Immat Gran (auto) Absolute Neuts (auto) Absolute Nucleated RBC Band Neutrophils % Nucleated RBC % Platelet Estimate (Adequate) % Immature Plt Fraction Hypochromasia Anisocytosis Target Cells Ovalocytes Schistocytes ESR (0-20) mm/hr Sodium (137-145) mmol/L Potassium (3.4-5.0) mmol/L Chloride (98-107) mmol/L Carbon Dioxide (22-30) mmol/L Anion Gap (4-12) mmol/L BUN (9-20) mg/dL Creatinine (0.7-1.3) mg/dL Estim Creat Clear Calc Estimated GFR (59 - ) Glucose (65-110) mg/dL Lactic Acid (0.7-2.0) mmol/L Calcium (8.4-10.2) mg/dL Magnesium (1.6-2.3) mg/dL Total Bilirubin (0.2-1.3) mg/dL AST (17-59) U/L ALT (6-50) U/L Alkaline Phosphatase (38-126) U/L Troponin I 0.064 H* D (0.000-0.034) ng/mL C-Reactive Protein (<1.0) mg/dL Total Protein (6.3-8.2) g/dL Albumin (3.5-5.1) g/dL Procalcitonin ng/mL Urine Color (Yellow) Urine Appearance (Clear) Urine pH (5.0-9.0) Ur Specific [place] (1.001-1.035) Urine Protein (Negative) mg/dL Urine Glucose (UA) (Negative) mg/dL Urine Ketones (Negative) mg/dL Ur Blood (Man) (Negative) Urine Nitrate (Negative) Urine Bilirubin (Negative) Urine Urobilinogen (<2.0) mg/dL Leukocyte Esterase Rfl (Negative) DANIELA/UL Urine RBC (0-2) /hpf Urine WBC (0-3) /hpf Ur Squamous Epith Cells (Few) /hpf Urine Bacteria /hpf Urine Casts Influenza A (RT-PCR) (Negative) Influenza B (RT-PCR) (Negative) RSV (RT-PCR) (Negative) SARS-CoV-2 RNA (RT-PCR) (Negative) <Tez Cavazos MD - Last Filed: 04/22/25 14:25> Imaging Data Radiologist's impression: ITS Impressions Chest X-Ray 04/22/25 06:57 IMPRESSION: 1. No acute cardiopulmonary findings given portable technique. <Gutierrez Carmona MD - Last Filed: 04/22/25 07:09> ITS Impressions Chest X-Ray 04/22/25 06:57 IMPRESSION: 1. No acute cardiopulmonary findings given portable technique. <Tez Cavazos MD - Last Filed: 04/22/25 14:25> Discharge Plan Discharge Clinical Impression: Ground-level fall, Discitis <Gutierrez Carmona MD - Last Filed: 04/22/25 07:09> Patient Disposition: Acute Care Hospital <Gutierrez Carmona MD - Last Filed: 04/22/25 07:09> Condition: Stable <Gutierrez Carmona MD - Last Filed: 04/22/25 07:09> Patient Language: Yoruba <Gutierrez Carmona MD - Last Filed: 04/22/25 07:09> Prescriptions: No Action aspirin 81 mg Tablet,Delayed Release (Dr/Ec) 81 mg PO QAM Qty: 1 0RF acetaminophen 500 mg Tablet 1,000 mg PO Q6HR PRN (Reason: Mild Pain (1-3) Or Fever) Qty: 1 0RF cefepime 2 gram recon soln 2 g IV Q8H Rx Instructions: 6 weeks 10 mL 0.9 normal saline flush pre and post each infusion weekly cmp, cbc, crp, esr faxed to my office at [phone] lactulose 10 gram/15 mL Solution 20 g PO Q6HR Qty: 1 0RF Rx Instructions: Until BM lidocaine [Lidoderm] 5 % Adhesive Patch,Medicated 2 patch transdermal DAILY Qty: 1 0RF [place] Creme Cream 1 applic topical BID Qty: 1 0RF polyethylene glycol 3350 [Miralax] 17 gram Powder In Packet 17 g PO BID Qty: 1 0RF atorvastatin 10 mg Tablet 10 mg PO DAILY 30 Days Qty: 30 0RF carvedilol [Coreg] 6.25 mg Tablet 6.25 mg PO Q12HR 17 Days Qty: 33 0RF Eliquis 5 mg tablet 5 mg PO BID 30 Days Qty: 60 0RF cyclobenzaprine 10 mg Tablet 10 mg PO TID 30 Days Qty: 90 0RF methocarbamol 500 mg Tablet 250 mg PO TID 30 Days Qty: 45 0RF lisinopril 20 mg Tablet 20 mg PO DAILY 30 Days Qty: 30 0RF hydrocortisone 1 % Cream 1 applic topical Q12HR PRN (Reason: Inflammation) Qty: 0 0RF gabapentin [Neurontin] 300 mg Capsule 300 mg PO TID 30 Days Qty: 90 0RF nystatin 100,000 unit/gram Powder 1 applic topical BID Qty: 15 0RF pantoprazole 40 mg tablet,delayed release (DR/EC) 40 mg PO QAM Qty: 30 0RF Rx Instructions: take 1 tablet q.a.m. on empty stomach and wait 30 minutes to eat or drink afterwards furosemide [Lasix] 20 mg tablet 20 mg PO QAM Qty: 30 0RF metformin 500 mg tablet extended release 24 hr 1,000 mg PO BID 30 Days Qty: 120 0RF oxycodone 5 mg Tablet 5 mg PO Q6H PRN (Reason: Pain Rated 6 Or Greater) Qty: 28 0RF morphine 15 mg tablet 15 mg PO Q8H PRN (Reason: pain) Qty: 20 0RF <Gutierrez Carmona MD - Last Filed: 04/22/25 07:09> Follow-up/Referrals: Augustine Willett MD [Primary Care Provider, Family Practice] <Gutierrez Carmona MD - Last Filed: 04/22/25 07:09>
[2025-04-22 05:57] LABS: Add Urine Microscopic? YES; Appearance Urine Cloudy (Clear); Glucose Urine UA Negative (Negative); Leukocyte Esterase Ur 1+ LEU/UL (Negative); Nitrate Urine Negative (Negative); Specific Grav Ur 1.029 (1.001-1.035)
--- NOTE | 2025-04-22 06:41 | ECG_ITS ---
Test Date: 2025-04-22 06:51:52 Measurements Intervals [place] Rate: 87 P: -3 DE: 158 QRS: -3 QRSD: 97 T: 2 QT: 358 QTc: 432 Interpretive Statements SINUS RHYTHM DELAYED PRECORDIAL R/S TRANSITION VOLTAGE CRITERIA FELICITA LVH NONSPECIFIC T-WAVE ABNORMALITY- ANT/INF LEADS BASELINE ARTIFACT- I, II, AVR, V3-V4 BORDERLINE ECG Compared to ECG 03/13/2025 00:56:29 HEART RATE HAS DECREASED Electronically Signed On 04-22-2025 08:21:47 INFORMATION TECHNOLOGY CONSULTANT by Jaspal Mckenna D.O.
[2025-04-22 07:09] VITALS: BP 138/73; PULSE 86; RESP 20; TEMP 36.6; O2SAT 98
[2025-04-22 07:18] LABS: Troponin I 0.064 ng/mL (0.000-0.034)
[2025-04-22 07:47] VITALS: BP 153/73; PULSE 75; RESP 18; TEMP 36.6; O2SAT 98
[2025-04-22] MEDS: CEFEPIME 2 GM in SODIUM CHLORIDE 0.9% IV 50 ML 100 ML IVPB (07:52)
[2025-04-22] MEDS: VANCOMYCIN 1,250 MG/NS 250 ML 1,250 MG/250 ML BAG 166.67 MG IVPB ×2 (08:30→10:25)
[2025-04-22 08:33] VITALS: BP 142/75; PULSE 79; RESP 20; O2SAT 97
[2025-04-22 10:27] VITALS: BP 133/76; PULSE 78; RESP 16; O2SAT 97
--- NOTE | 2025-04-22 10:43 | PC.NURSE ---
Verbal order received from EDP to DC Vanc and give 2 mg of Morphine IV push for pain.
[2025-04-22] MEDS: MORPHINE SULFATE (*CRX) 4 MG/ML INJ 2 MG IV PUSH (10:45)
--- OUTSIDE RECORDS SUMMARY | 2025-06-14 18:00 | XMS_ITS | Clinical Summary ---
Author Organization Unknown Care Team Providers Care Spray Maker Name Role Phone CARLOS ALBERTO TRUJILLO, PERCY Unavailable Unavailable KP RN, DALE Unavailable Unavailable KEYLA RN, BENY Unavailable Unavailable MALIK ROOF DESIGNER, MAYUR Unavailable Unavailable BILL PT, CORY Unavailable Unavailable ATUL CONDENSER OPERATOR, BRI Unavailable Unavailankit GRIFFIN OT, ODELL Unavailable Unavailable Payers Payer Name Policy Type Policy Number Effective Date Expira tion Date MEDICARE.[facility] [id number] Problems Condition Name Condition Details Condition Category Status Onset Date Resolution Date Last Treatment Date Treating Clinician Comments DISCITIS, UNSPECIFIED , LUMBAR REGION Active 2024-05 00:00: 00 Allergies, Adverse Reactions, Alerts Allergy Name Allergy Type Status Severity Reaction(s) Onset Date Inactive Date Treating Clinician Comments NO KNOWN ALLERGIES Propensity to adverse reactions Active 2024-05 16:02: 56 Vital Signs Vital Name Observation Time Observation Value Commen ts Temperature 2025-04-20 13:36:00.000 97.4 [degF] Temperature 2025-04-20 10:05:00.000 99 [degF] Temperature 2025-04-19 13:34:00.000 96.3 [degF] Temperature 2025-04-17 13:59:00.000 98 [degF] BMI (%) 2025-04-17 13:59:00.000 34 kg/m2 Height 2025-04-17 13:59:00.000 71 [in_us] Pulse 2025-04-20 13:36:00.000 76 /min Pulse 2025-04-20 10:05:00.000 78 /min Pulse 2025-04-19 13:34:00.000 68 /min Pulse 2025-04-17 13:59:00.000 80 /min O2 Saturation (%) 2025-04-20 13:36:00.000 98 % O2 Saturation (%) 2025-04-20 10:05:00.000 98 % O2 Saturation (%) 2025-04-19 13:34:00.000 98 % O2 Saturation (%) 2025-04-17 13:59:00.000 96 % Respirations 2025-04-20 13:36:00.000 18 /min Respirations 2025-04-20 10:05:00.000 18 /min Respirations 2025-04-19 13:34:00.000 18 /min Respirations 2025-04-17 13:59:00.000 20 /min Weight (lbs) 2025-04-17 13:59:00.000 250 [lb_av] Systolic Blood Pressure 2025-04-20 13:36:00.000 110 mm [Hg] Systolic Blood Pressure 2025-04-20 10:05:00.000 110 mm [Hg] Systolic Blood Pressure 2025-04-19 13:34:00.000 120 mm [Hg] Systolic Blood Pressure 2025-04-17 13:59:00.000 112 mm [Hg] Diastolic Blood Pressure 2025-04-20 13:36:00.000 68 mm [Hg] Diastolic Blood Pressure 2025-04-20 10:05:00.000 62 mm [Hg] Diastolic Blood Pressure 2025-04-19 13:34:00.000 64 mm [Hg] Diastolic Blood Pressure 2025-04-17 13:59:00.000 60 mm [Hg] Plan of Treatment Planned Activity Planned Date Details Comments Future Scheduled Test RN TO OBSE RVE, ASSESS, EVALUATE, AND DEVELOP AN INDIVIDUALIZED PLAN OF CARE. AGENCY MAY ACCEPT ORDERS FROM CONSULTING PHYSICIANS. RN TO OBSERVE AND ASSESS, ROOF DESIGNER/DUTY OFFICER TO OBSERVE FOR RISK FOR FALLS AND INSTRUCT IN FALL PREVENTION, HOME SAFETY, MEDICATION MANAGEMENT, INFECTION PREVENTION, AND NUTRITION MANAGEMENT. RN/ROOF DESIGNER/DUTY OFFICER NURSE MAY PERFORM O2 SATURATION LEVEL ON ADMISSION AND PRN FOR SHORTNESS OF BREATH FOR RN TO ASSESS/ROOF DESIGNER TO OBSERVE PATIENT, WITH NOTIFICATION TO THE PHYSICIAN IF SATURATION IS 90% IN THE ABSENCE OF MORE SPECIFIC PARAMETERS FROM THE PHYSICIAN. AGENCY MAY PERFORM A RESUMPTION OF CARE VISIT FOLLOWING ANY HOSPITAL ADMISSION. RN/ROOF DESIGNER/DUTY OFFICER TO MONITOR CO-MORBID CONDITIONS LISTED ON THE PLAN OF CARE AND ANY NEW CONDITIONS THAT PRESENT THEMSELVES DURING THIS EPISODE TO IDENTIFY CHANGES AND INTERVENE TO MINIMIZE COMPLICATIONS. [code = RN TO OBSERVE, ASSESS, EVALUATE, AND DEVELOP AN INDIVIDUALIZED PLAN OF CARE. AGENCY MAY ACCEPT ORDERS FROM CONSULTING PHYSICIANS. RN TO OBSERVE AND ASSESS, ROOF DESIGNER/DUTY OFFICER TO OBSERVE FOR RISK FOR FALLS AND INSTRUCT IN FALL PREVENTION, HOME SAFETY, MEDICATION MANAGEMENT, INFECTION PREVENTION, AND NUTRITION MANAGEMENT. RN/ROOF DESIGNER/DUTY OFFICER NURSE MAY PERFORM O2 SATURATION LEVEL ON ADMISSION AND PRN FOR SHORTNESS OF BREATH FOR RN TO ASSESS/ROOF DESIGNER TO OBSERVE PATIENT, WITH NOTIFICATION TO THE PHYSICIAN IF SATURATION IS 90% IN THE ABSENCE OF MORE SPECIFIC PARAMETERS FROM THE PHYSICIAN. AGENCY MAY PERFORM A RESUMPTION OF CARE VISIT FOLLOWING ANY HOSPITAL ADMISSION. RN/ROOF DESIGNER/DUTY OFFICER TO MONITOR CO-MORBID CONDITIONS LISTED ON THE PLAN OF CARE AND ANY NEW CONDITIONS THAT PRESENT THEMSELVES DURING THIS EPISODE TO IDENTIFY CHANGES AND INTERVENE TO MINIMIZE COMPLICATIONS.] Future Scheduled Test RISK FOR H OSPITALIZATION; RN TO ASSESS/TEACH, DUTY OFFICER/ROOF DESIGNER TO OBSERVE/TEACH PATIENT/CAREGIVER ON RISK FOR HOSPITALIZATION/EMERGENCY ROOM VISITS, TEACH SIGNS AND SYMPTOMS THAT PUT PATIENT AT RISK, WHEN TO NOTIFY NURSE/PHYSICIAN OF COMPLICATIONS/DECLINE, AND WHEN TO CALL 911. [code = RISK FOR HOSPITALIZATION; RN TO ASSESS/TEACH, DUTY OFFICER/ROOF DESIGNER TO OBSERVE/TEACH PATIENT/CAREGIVER ON RISK FOR HOSPITALIZATION/EMERGENCY ROOM VISITS, TEACH SIGNS AND SYMPTOMS THAT PUT PATIENT AT RISK, WHEN TO NOTIFY NURSE/PHYSICIAN OF COMPLICATIONS/DECLINE, AND WHEN TO CALL 911.] Future Scheduled Test SKIN INTEG RITY RN TO ASSESS AND TEACH, ROOF DESIGNER/DUTY OFFICER TO OBSERVE AND TEACH INTEGUMENTARY STATUS TO IDENTIFY CHANGES AND INTERVENE TO MINIMIZE COMPLICATIONS. PROVIDE SKILLED TEACHING OF GENERAL WOUND AND SKIN CARE AND PREVENTION RELATED TO POTENTIAL FOR OR ACTUAL ALTERED SKIN INTEGRITY [code = SKIN INTEGRITY RN TO ASSESS AND TEACH, ROOF DESIGNER/DUTY OFFICER TO OBSERVE AND TEACH INTEGUMENTARY STATUS TO IDENTIFY CHANGES AND INTERVENE TO MINIMIZE COMPLICATIONS. PROVIDE SKILLED TEACHING OF GENERAL WOUND AND SKIN CARE AND PREVENTION RELATED TO POTENTIAL FOR OR ACTUAL ALTERED SKIN INTEGRITY] Future Scheduled Test RN TO ASSE SS AND TEACH, ROOF DESIGNER/DUTY OFFICER TO OBSERVE AND TEACH INTEGUMENTARY STATUS RELATED TO PRESSURE INJURY MANAGEMENT TO IDENTIFY CHANGES AND INTERVENE TO MINIMIZE COMPLICATIONS. PROVIDE SKILLED TEACHING RELATED TO ALTERED SKIN INTEGRITY TO INCLUDE OFFLOADING, FREQUENT POSITION CHANGES, KEEP SKIN CLEAN AND DRY TO PREVENT SKIN BREAKDOWN AND MINIMIZE FRICTION AND SHEARING. REPORT SIGNIFICANT CHANGES IN STATUS TO PHYSICIAN FOR EARLY INTERVENTION. [code = RN TO ASSESS AND TEACH, ROOF DESIGNER/DUTY OFFICER TO OBSERVE AND TEACH INTEGUMENTARY STATUS RELATED TO PRESSURE INJURY MANAGEMENT TO IDENTIFY CHANGES AND INTERVENE TO MINIMIZE COMPLICATIONS. PROVIDE SKILLED TEACHING RELATED TO ALTERED SKIN INTEGRITY TO INCLUDE OFFLOADING, FREQUENT POSITION CHANGES, KEEP SKIN CLEAN AND DRY TO PREVENT SKIN BREAKDOWN AND MINIMIZE FRICTION AND SHEARING. REPORT SIGNIFICANT CHANGES IN STATUS TO PHYSICIAN FOR EARLY INTERVENTION.] Future Scheduled Test RN/ROOF DESIGNER/DUTY OFFICER TO PERFORM/TEACH PATIENT/CAREGIVER WOUND CARE PRESSURE INJURY TO LEFT BUTTOCKS: IRRIGATE/CLEANSE WITH WOUND CLEANSER, APPLY MEDIHONEY, MAY APPLY SKIN BARRIER TO NICO WOUND PRN TO PREVENT MACERATION AND COVER WITH ADHESIVE FOAM. CHANGE DRESSING EVERY OTHER DAY AND PRN FOR SOILAGE [code = RN/ROOF DESIGNER/DUTY OFFICER TO PERFORM/TEACH PATIENT/CAREGIVER WOUND CARE PRESSURE INJURY TO LEFT BUTTOCKS: IRRIGATE/CLEANSE WITH WOUND CLEANSER, APPLY MEDIHONEY, MAY APPLY SKIN BARRIER TO NICO WOUND PRN TO PREVENT MACERATION AND COVER WITH ADHESIVE FOAM. CHANGE DRESSING EVERY OTHER DAY AND PRN FOR SOILAGE] Future Scheduled Test DIABETES M ONITORING RN/DUTY OFFICER/ROOF DESIGNER TO EDUCATE ON DIABETES. NURSE MAY PERFORM FINGER STICK BLOOD GLUCOSE NEEDED FOR SIGNS AND SYMPTOMS OF HYPO AND HYPERGLYCEMIA. RN/DUTY OFFICER/ROOF DESIGNER TO MONITOR ADHERENCE OF CAREGIVER PERFORMING DIABETIC FOOT CARE AND MAY PERFORM DIABETIC FOOT CARE PRN. RN/DUTY OFFICER/ROOF DESIGNER TO MONITOR FOR ADHERENCE TO DIABETIC SELF-CARE AND MANAGEMENT INCLUDING MEDICATIONS. [code = DIABETES MONITORING RN/DUTY OFFICER/ROOF DESIGNER TO EDUCATE ON DIABETES. NURSE MAY PERFORM FINGER STICK BLOOD GLUCOSE NEEDED FOR SIGNS AND SYMPTOMS OF HYPO AND HYPERGLYCEMIA. RN/DUTY OFFICER/ROOF DESIGNER TO MONITOR ADHERENCE OF CAREGIVER PERFORMING DIABETIC FOOT CARE AND MAY PERFORM DIABETIC FOOT CARE PRN. RN/DUTY OFFICER/ROOF DESIGNER TO MONITOR FOR ADHERENCE TO DIABETIC SELF-CARE AND MANAGEMENT INCLUDING MEDICATIONS.] Future Scheduled Test PAIN MANAG EMENT; RN TO ASSESS AND TEACH, DUTY OFFICER/ROOF DESIGNER TO OBSERVE AND TEACH AND PROVIDE EDUCATION ON PAIN MANAGEMENT TECHNIQUES. [code = PAIN MANAGEMENT; RN TO ASSESS AND TEACH, DUTY OFFICER/ROOF DESIGNER TO OBSERVE AND TEACH AND PROVIDE EDUCATION ON PAIN MANAGEMENT TECHNIQUES.] Future Scheduled Test GENITOURIN GISELA MANAGEMENT; RN TO ASSESS AND TEACH, ROOF DESIGNER/DUTY OFFICER TO OBSERVE AND TEACH RELATED TO ALTERED GENITOURINARY STATUS TO MINIMIZE COMPLICATIONS AND REDUCE HOSPITALIZATION. [code = GENITOURINARY MANAGEMENT; RN TO ASSESS AND TEACH, ROOF DESIGNER/DUTY OFFICER TO OBSERVE AND TEACH RELATED TO ALTERED GENITOURINARY STATUS TO MINIMIZE COMPLICATIONS AND REDUCE HOSPITALIZATION.] Future Scheduled Test URINARY IN CONTINENCE MANAGEMENT; RN TO ASSESS AND TEACH, ROOF DESIGNER/DUTY OFFICER TO OBSERVE AND TEACH MANAGEMENT OF URINARY INCONTINENCE. TEACH/INSTRUCT ON PREVENTING INFECTION AND SKIN BREAKDOWN. RN/ROOF DESIGNER/DUTY OFFICER MAY INSTRUCT IN BLADDER TRAINING PROGRAM INDICATED. [code = URINARY INCONTINENCE MANAGEMENT; RN TO ASSESS AND TEACH, ROOF DESIGNER/DUTY OFFICER TO OBSERVE AND TEACH MANAGEMENT OF URINARY INCONTINENCE. TEACH/INSTRUCT ON PREVENTING INFECTION AND SKIN BREAKDOWN. RN/ROOF DESIGNER/DUTY OFFICER MAY INSTRUCT IN BLADDER TRAINING PROGRAM INDICATED.] Future Scheduled Test FALL REDUC TION MANAGEMENT; RN TO ASSESS AND OBSERVE, ROOF DESIGNER/DUTY OFFICER TO OBSERVE FALL RISK FACTORS AND EDUCATE PATIENT/CAREGIVER ON STRATEGIES TO MINIMIZE THE RISK OF FALLING. [code = FALL REDUCTION MANAGEMENT; RN TO ASSESS AND OBSERVE, ROOF DESIGNER/DUTY OFFICER TO OBSERVE FALL RISK FACTORS AND EDUCATE PATIENT/CAREGIVER ON STRATEGIES TO MINIMIZE THE RISK OF FALLING.] Future Scheduled Test VENIPUNCTU RE DIAGNOSTIC; MAY DRAW FROM PICC RN/ROOF DESIGNER/DUTY OFFICER TO PERFORM VENIPUNCTURE FOR CBC, CMP, ESR, CRP WEEKLY DELIVER TO [facility] FAX/CALL IN RESULTS TO [phone]. [code = VENIPUNCTURE DIAGNOSTIC; MAY DRAW FROM PICC RN/ROOF DESIGNER/DUTY OFFICER TO PERFORM VENIPUNCTURE FOR CBC, CMP, ESR, CRP WEEKLY DELIVER TO [facility] FAX/CALL IN RESULTS TO [phone].] Future Scheduled Test IV THERAPY MANAGEMENT; RN TO ASSESS AND TEACH, DUTY OFFICER/ROOF DESIGNER TO OBSERVE AND TEACH ON IV ACCESS SITE RUE, RESPONSE TO MEDICATION. RN/DUTY OFFICER/ROOF DESIGNER FOR SKILLED TEACHING REGARDING INFUSION PROCEDURE, CARE OF ACCESS DEVICE, SIGNS AND SYMPTOMS OF ACCESS DEVICE COMPLICATIONS AND, CARE AND USE OF INFUSION EQUIPMENT. [code = IV THERAPY MANAGEMENT; RN TO ASSESS AND TEACH, DUTY OFFICER/ROOF DESIGNER TO OBSERVE AND TEACH ON IV ACCESS SITE RUE, RESPONSE TO MEDICATION. RN/DUTY OFFICER/ROOF DESIGNER FOR SKILLED TEACHING REGARDING INFUSION PROCEDURE, CARE OF ACCESS DEVICE, SIGNS AND SYMPTOMS OF ACCESS DEVICE COMPLICATIONS AND, CARE AND USE OF INFUSION EQUIPMENT.] Future Scheduled Test IV THERAPY ADMINISTRATION; RN/ROOF DESIGNER/DUTY OFFICER TO INFUSE AND/OR TEACH PATIENT/CAREGIVER INFUSION OF CEFEPIME 2GM IV PUSH EVERY 8 HOURS CHANGE PRN FOR LOOSE OR SOILED DRESSINGS. INJECTION CAP CHANGE DAILY AND WITH EACH LAB DRAW AND PRN FOR CONTAMINATION OR MALFUNCTION. EXTENSION TUBING TO BE CHANGED WEEKLY AND WITH EACH LAB DRAW AND PRN FOR PROBLEMS. SKIN PREP PRN; SECUREMENT DEVICE PRN. BIOPATCH PRN FOR REDNESS OR NEUTROPENIA. RN/ROOF DESIGNER/DUTY OFFICER TO PERFORM/INSTRUCT PATIENT/CAREGIVER TO FLUSH IV ACCESS WITH 10ML OF SALINE RN/ROOF DESIGNER/DUTY OFFICER TO PERFORM SITE CARE FOR INFUSION ACCESS DEVICE PICC WITH DRESSING CHANGE TO INCLUDE WEEKLY DRESSING CHANGE RN/ROOF DESIGNER/DUTY OFFICER TO CLEANSE ACCESS SITE WITH CLEANSING SWABS ALLOW TO AIR DRY AND THEN APPLY DRESSING APPLIED TO ACCESS SITE AND SECURE WITH TEGADEEM FREQUENCY WEEKLY. [code = IV THERAPY ADMINISTRATION; RN/ROOF DESIGNER/DUTY OFFICER TO INFUSE AND/OR TEACH PATIENT/CAREGIVER INFUSION OF CEFEPIME 2GM IV PUSH EVERY 8 HOURS CHANGE PRN FOR LOOSE OR SOILED DRESSINGS. INJECTION CAP CHANGE DAILY AND WITH EACH LAB DRAW AND PRN FOR CONTAMINATION OR MALFUNCTION. EXTENSION TUBING TO BE CHANGED WEEKLY AND WITH EACH LAB DRAW AND PRN FOR PROBLEMS. SKIN PREP PRN; SECUREMENT DEVICE PRN. BIOPATCH PRN FOR REDNESS OR NEUTROPENIA. RN/ROOF DESIGNER/DUTY OFFICER TO PERFORM/INSTRUCT PATIENT/CAREGIVER TO FLUSH IV ACCESS WITH 10ML OF SALINE RN/ROOF DESIGNER/DUTY OFFICER TO PERFORM SITE CARE FOR INFUSION ACCESS DEVICE PICC WITH DRESSING CHANGE TO INCLUDE WEEKLY DRESSING CHANGE RN/ROOF DESIGNER/DUTY OFFICER TO CLEANSE ACCESS SITE WITH CLEANSING SWABS ALLOW TO AIR DRY AND THEN APPLY DRESSING APPLIED TO ACCESS SITE AND SECURE WITH TEGADEEM FREQUENCY WEEKLY.] Future Scheduled Test PRN VISITS ; NUMBER OF RN/ROOF DESIGNER/DUTY OFFICER VISITS: 2 RN/ROOF DESIGNER/DUTY OFFICER TO PERFORM: FOR THE FOLLOWING REASONS: PICC LINE ISSUES OR WOUND MANAGEMENT [code = PRN VISITS; NUMBER OF RN/ROOF DESIGNER/DUTY OFFICER VISITS: 2 RN/ROOF DESIGNER/DUTY OFFICER TO PERFORM: FOR THE FOLLOWING REASONS: PICC LINE ISSUES OR WOUND MANAGEMENT] Future Scheduled Test AGENCY MAY PERFORM A RESUMPTION OF CARE VISIT FOLLOWING ANY HOSPITAL ADMISSION. PT TO EVALUATE, OBSERVE / ASSESS, AND MONITOR, CONDENSER OPERATOR TO OBSERVE AND MONITOR, PROVIDE SKILLED THERAPEUTIC INTERVENTION, ACTIVITY, EDUCATION, AND TRAINING TO ADDRESS; BED MOBILITY (PT/CONDENSER OPERATOR) PT/CONDENSER OPERATOR TO PROVIDE GAIT TRAINING FOR IMPROVED MOBILITY AND /OR TO NORMALIZE GAIT PATTERN NEUROMUSCULAR RE-EDUCATION / BALANCE / POSTURAL CONTROL (PT) THERAPEUTIC EXERCISES AND ESTABLISHING A HOME EXERCISE PROGRAM (PT/CONDENSER OPERATOR) PT/CONDENSER OPERATOR TO PROVIDE STAIR TRAINING SIT TO/FROM STAND TRANSFERS (PT/CONDENSER OPERATOR) PT / CONDENSER OPERATOR MAY EDUCATE ON PAIN MANAGEMENT CLINICALLY INDICATED, INCLUDING NON-PHARMACOLOGICAL PAIN REDUCTION TECHNIQUES AND USE OF CRYOTHERAPY OR HEAT UP TO 20 MIN AT A TIME FOR PAIN MANAGEMENT 3-4 X/DAY PT / CONDENSER OPERATOR TO MONITOR FOR HYPO/HYPERGLYCEMIA AND CONDUCT ROUTINE FOOT INSPECTIONS. RECORD PATIENT REPORTED BLOOD SUGAR LEVELS AND NOTIFY PHYSICIAN AND/OR THE RN CLINICAL FIRE ADJUSTER FOR PHYSICIAN NOTIFICATION IF BLOOD SUGAR LEVELS ARE OUTSIDE ORDERED PARAMETERS. TEACH PATIENT/CAREGIVER ON DAILY FOOT INSPECTIONS PT / CONDENSER OPERATOR TO EDUCATE ON HYPERTENSION SELF-MANAGEMENT PT TO ASSESS / CONDENSER OPERATOR TO MONITOR CARDIO/RESPIRATORY SYSTEM; AND NOTIFY THE PHYSICIAN AND/OR THE RN CLINICAL FIRE ADJUSTER FOR PHYSICIAN NOTIFICATION FOR EARLY SIGNS AND SYMPTOMS OF EXACERBATION OR DETERIORATION. PT/CONDENSER OPERATOR TO IDENTIFY FALL RISK FACTORS; EDUCATE THE PATIENT/CAREGIVER ON WAYS TO REDUCE FALL RISK FACTORS AND ESTABLISH HOME EXERCISE PROGRAM TO MINIMIZE FALL RISK. MAY TEACH THE PATIENT FLOOR RECOVERY WHEN CLINICALLY APPROPRIATE [code = AGENCY MAY PERFORM A RESUMPTION OF CARE VISIT FOLLOWING ANY HOSPITAL ADMISSION. PT TO EVALUATE, OBSERVE / ASSESS, AND MONITOR, CONDENSER OPERATOR TO OBSERVE AND MONITOR, PROVIDE SKILLED THERAPEUTIC INTERVENTION, ACTIVITY, EDUCATION, AND TRAINING TO ADDRESS; BED MOBILITY (PT/CONDENSER OPERATOR) PT/CONDENSER OPERATOR TO PROVIDE GAIT TRAINING FOR IMPROVED MOBILITY AND /OR TO NORMALIZE GAIT PATTERN NEUROMUSCULAR RE-EDUCATION / BALANCE / POSTURAL CONTROL (PT) THERAPEUTIC EXERCISES AND ESTABLISHING A HOME EXERCISE PROGRAM (PT/CONDENSER OPERATOR) PT/CONDENSER OPERATOR TO PROVIDE STAIR TRAINING SIT TO/FROM STAND TRANSFERS (PT/CONDENSER OPERATOR) PT / CONDENSER OPERATOR MAY EDUCATE ON PAIN MANAGEMENT CLINICALLY INDICATED, INCLUDING NON-PHARMACOLOGICAL PAIN REDUCTION TECHNIQUES AND USE OF CRYOTHERAPY OR HEAT UP TO 20 MIN AT A TIME FOR PAIN MANAGEMENT 3-4 X/DAY PT / CONDENSER OPERATOR TO MONITOR FOR HYPO/HYPERGLYCEMIA AND CONDUCT ROUTINE FOOT INSPECTIONS. RECORD PATIENT REPORTED BLOOD SUGAR LEVELS AND NOTIFY PHYSICIAN AND/OR THE RN CLINICAL FIRE ADJUSTER FOR PHYSICIAN NOTIFICATION IF BLOOD SUGAR LEVELS ARE OUTSIDE ORDERED PARAMETERS. TEACH PATIENT/CAREGIVER ON DAILY FOOT INSPECTIONS PT / CONDENSER OPERATOR TO EDUCATE ON HYPERTENSION SELF-MANAGEMENT PT TO ASSESS / CONDENSER OPERATOR TO MONITOR CARDIO/RESPIRATORY SYSTEM; AND NOTIFY THE PHYSICIAN AND/OR THE RN CLINICAL FIRE ADJUSTER FOR PHYSICIAN NOTIFICATION FOR EARLY SIGNS AND SYMPTOMS OF EXACERBATION OR DETERIORATION. PT/CONDENSER OPERATOR TO IDENTIFY FALL RISK FACTORS; EDUCATE THE PATIENT/CAREGIVER ON WAYS TO REDUCE FALL RISK FACTORS AND ESTABLISH HOME EXERCISE PROGRAM TO MINIMIZE FALL RISK. MAY TEACH THE PATIENT FLOOR RECOVERY WHEN CLINICALLY APPROPRIATE] Goal Patient Goal - R EGAIN STRENGTH AND WOUNDS TO HEAL Goal Provider Goal - A PLAN OF CARE WILL BE ESTABLISHED THAT MEETS THE PATIENT S NEEDS. PATIENT WILL DEMONSTRATE OXYGEN SATURATION WITHIN NORMAL LIMITS OR PATIENT S OPTIMAL LEVEL ESTABLISHED BY THE PHYSICIAN THROUGHOUT CARE. CHANGES TO CO-MORBID CONDITIONS AND ANY NEW CONDITIONS WILL BE IDENTIFIED AND REPORTED TO THE PHYSICIAN. Goal Provider Goal - PATIENT/CAREGIVER WILL VERBALIZE UNDERSTANDING OF SIGNS AND SYMPTOMS THAT PUT THE PATIENT AT RISK FOR HOSPITALIZATION /EMERGENCY ROOM VISITS, WHEN TO NOTIFY NURSE/PHYSICIAN OF COMPLICATIONS/DECLINE AND WHEN TO CALL 911 BY WEEK 3 Goal Provider Goal - CHANGES IN SKIN INTEGRITY STATUS WILL BE IDENTIFIED AND REPORTED TO THE PHYSICIAN FOR PROMPT INTERVENTION. PATIENT / CAREGIVER WILL VERBALIZE/DEMONSTRATE ADEQUATE KNOWLEDGE OF INTEGUMENTARY STATUS AND APPROPRIATE MEASURES TO PROMOTE SKIN INTEGRITY AND PREVENT INJURY BY WEEK 6 Goal Provider Goal - CHANGES IN SKIN INTEGRITY STATUS RELATED TO PRESSURE INJURY MANAGEMENT WILL BE IDENTIFIED AND REPORTED TO THE PHYSICIAN FOR PROMPT INTERVENTION. PATIENT / CAREGIVER WILL VERBALIZE/DEMONSTRATE ADEQUATE KNOWLEDGE OF INTEGUMENTARY STATUS AND APPROPRIATE MEASURES TO PROMOTE SKIN INTEGRITY AND PREVENT INJURY BY WEEK 6 Goal Provider Goal - PATIENT / CAREGIVER WILL VERBALIZE / DEMONSTRATE ABILITY TO PERFORM WOUND CARE. WOUND STATUS WILL IMPROVE EVIDENCED BY A DECREASE IN SIZE, DRAINAGE, ABSENCE OF INFECTION, AND DECREASED PAIN BY WEEK 4 Goal Provider Goal - BLOOD SUGARS WILL REMAIN WITHIN ESTABLISHED RANGES AND DIABETES CONTROLLED THROUGHOUT EPISODE. Goal Provider Goal - PATIENT / CAREGIVER WILL VERBALIZE / DEMONSTRATE UNDERSTANDING OF PAIN CONTROL MEASURES BY WEEK 5 Goal Provider Goal - PATIENT / CAREGIVER WILL VERBALIZE/DEMONSTRATE UNDERSTANDING OF MEASURES TO MANAGE ALTERED GENITOURINARY STATUS BY WEEK 5 Goal Provider Goal - PATIENT/CAREGIVER WILL VERBALIZE/DEMONSTRATE UNDERSTANDING OF CARE AND MANAGEMENT OF URINARY INCONTINENCE BY WEEK 5 Goal Provider Goal - PATIENT/CAREGIVER WILL VERBALIZE/DEMONSTRATE UNDERSTANDING OF FALL RISK FACTORS AND IMPLEMENT STRATEGIES TO MINIMIZE FALL RISK. PATIENT/CAREGIVER WILL VERBALIZE/DEMONSTRATE AN ABILITY TO ADHERE TO FALL REDUCTION SELF-MANAGEMENT AND LIFE-STYLE CHANGES BY WEEK 9 Goal Provider Goal - PATIENT / CAREGIVER WILL VERBALIZE/DEMONSTRATE UNDERSTANDING OF PURPOSE OF VENIPUNCTURE AND LAB RESULTS WILL BE REPORTED TO PHYSICIAN WITH FOLLOW UP ORDERED. Goal Provider Goal - PATIENT / CAREGIVER WILL VERBALIZE/DEMONSTRATE ABILITY TO CARE FOR ADMINISTER IV ADEQUATELY BY WEEK 4 Goal Provider Goal - PATIENT WILL VERBALIZE/DEMONSTRATE TOLERANCE TO INFUSION PROCEDURE. Goal Provider Goal - Goal Provider Goal - PT STG: PATIENT WILL DEMONSTRATE IMPROVED BED MOBILITY TO REDUCE THE RISK OF SKIN INTEGRITY ISSUES AND/OR PAIN FROM MINIMAL/MODERATE ASSISTANCE TO INDEPENDENT IN 4 WEEKS PT LTG: PATIENT WILL DEMONSTRATE IMPROVED SAFE FUNCTIONAL MOBILITY BY IMPROVING AMBULATION FROM CONTACT GUARD ASSIST 80 FEET WITH WHEELED WALKER TO INDEPENDENT 150 FEET WITH WHEELED WALKER IN 8 WEEKS ... PT LTG: PATIENT WILL DEMONSTRATE REDUCED FALL RISK EVIDENCED BY IMPROVING TINETTI GAIT AND BALANCE SCORE FROM TO IN 8 WEEKS PT LTG: PATIENT WILL DEMONSTRATE IMPROVED FUNCTIONAL STRENGTH EVIDENCED BY FIVE TIMES SIT TO STAND TEST (CUT SCORE >12 SECONDS INDICATES AN INCREASED FALL RISK) IMPROVING FROM UNABLE TO COMPLETING WITH A SCORE OF 30 SECONDS OR LESS IN 8 WEEKS PT LTG: PATIENT WILL DEMONSTRATE INCREASED STRENGTH OF BILATERAL LOWER EXTREMITIES FROM 2+/5 TO 3+/5 IN 8 WEEKS IN ORDER TO IMPROVE FUNCTIONAL MOBILITY PT LTG: PATIENT WILL DEMONSTRATE DECREASE PAIN FROM MAX OF 8T MAX OF 5 IN 8 WEEKS ... PT LTG: PATIENT WILL DEMONSTRATE IMPROVED ABILITY TO SAFELY NEGOTIATE STAIRS FROM MODERATE ASSISTANCE TO STANDBY ASSISTANCE IN ORDER TO SAFELY EXIT THE HOME AND ATTEND MEDICAL APPOINTMENTS IN 8 WEEKS ... PT STG: PATIENT WILL DEMONSTRATE IMPROVED ABILITY TO PERFORM SIT TO/FROM STAND TRANSFERS TO REDUCE THE RISK OF SKIN BREAKDOWN AND REDUCE FALL RISK FROM CONTACT GUARD ASSIST TO INDEPENDENT IN 4 WEEKS PT GOAL: PATIENT WILL DEMONSTRATE UNDERSTANDING OF PAIN MANAGEMENT TECHNIQUES EVIDENCED BY REDUCED PAIN IN LOW BACK FROM MAX OF 8 TO MAX OF 5 PATIENT S BLOOD SUGAR WILL REMAIN WELL CONTROLLED WITH SELF-MANAGEMENT THROUGHOUT EPISODE OF CARE. PT GOAL: PATIENT/CAREGIVER WILL BE ABLE TO IDENTIFY SIGNS OF EXACERBATION OF HYPERTENSION AND WILL VERBALIZE/DEMONSTRATE AN ABILITY TO ADHERE TO HYPERTENSION SELF-MANAGEMENT AND LIFE-STYLE CHANGES BY END OF EPISODE PT LTG: PATIENT WILL NOT EXPERIENCE CARDIAC OR RESPIRATORY COMPLICATIONS THROUGHOUT THE EPISODE OF CARE. PT LTG: PATIENT/CAREGIVER WILL DEMONSTRATE ADHERENCE TO FALL REDUCTION SELF-MANAGEMENT AND REDUCING FALL RISK FACTORS TO MINIMIZE FALL RISK BY END OF EPISODE PT LTG: PATIENT WILL BE INDEPENDENT WITH IMPLEMENTATION OF HEP WITHIN 4 WEEKS Progress Notes Progress Notes <paragraph>[Visit Date: 2024 by CORY KHAN PT]:</paragraph><paragraph>PROVIDED CARE: PATIENT IS A 69-YEAR-OLD MALE WHO WAS HOSPITALIZED WITH ACUTE L1-L2 DISCITIS WITH AN ABSCESSED PARASPINAL MUSCULATURE. HE HAS A PICC LINE IN PLACE. HE HAS A PAST MEDICAL HISTORY SIGNIFICANT FOR HTN, DM, PE, DVT, HLD, SACRAL PRESSURE ULCERS, V-TACH WITH A RN FIRST ASSISTANT AND PERIPHERAL VASCULAR DISEASE. PATIENT LIVES WITH HIS AND DAUGHTER IN A SPLIT LEVEL HOME WITH 12 STEPS TO ENTER. PATIENT WAS INDEPENDENT WITHOUT DEVICE AT COMMUNITY LEVEL PRIOR TO ILLNESS.</paragraph><paragraph></paragraph><paragraph>CURRENT LEVEL OF FUNCTION BILATERAL LOWER EXTREMITY STRENGTH GROSSLY 2+/5. PATIENT SCORED 14/28 ON TINETTI GAIT AND BALANCE ASSESSMENT. PATIENT'S TRANSITION FROM [id number] WITH CONTACT GUARD ASSIST USING BILATERAL UPPER EXTREMITIES AND PILLOWS ON THE SEAT CUSHION. PATIENT AMBULATE 60 FEET WITH CONTACT GUARD ASSIST WITH FRONT WHEELED WALKER. PATIENT DECLINED BED MOBILITY AT THIS TIME DUE TO INCREASED PAIN.</paragraph><paragraph></paragraph><paragraph>PATIENT HAS A PICC LINE IN RIGHT UPPER EXTREMITY AND TO PRESSURE AREAS ON HIS BUTTOCKS. PATIENT WITH SIGNIFICANTLY DISCOLORED DISTAL LOWER EXTREMITIES WITH PETECHIAE NOTED ON BOTH FEET.</paragraph><paragraph></paragraph><paragraph>PATIENT INSTRUCTED TO STAND FROM HIS CHAIR EVERY 30 MINUTES BEFORE A MINIMUM OF 30 SECONDS IN ORDER TO RELIEVE PRESSURE ON HIS BOTTOM. PATIENT INSTRUCTED TO AMBULATE EVERY 2 HOURS IN ORDER TO INCREASE STRENGTH AND ACTIVITY TOLERANCE.</paragraph><paragraph></paragraph><paragraph>PATIENT WILL BENEFIT FROM ONGOING PHYSICAL THERAPY IN ORDER TO ADDRESS DEFICITS IN STRENGTH BALANCE TRANSFERS AND AMBULATION.</paragraph> <paragraph>[Visit Date: 2024 by ODELL GRIFFIN OT]:</paragraph><paragraph>PATIENT IS A 69-Y/O MALE WHO WAS HOSPITALIZED WITH ACUTE L1-L2 DISCITIS WITH AN ABSCESSED PARASPINAL MUSCULATURE. HE HAS A PICC LINE IN PLACE. HE HAS A PAST MEDICAL HISTORY SIGNIFICANT FOR HTN, DM, PE, DVT, HLD, SACRAL PRESSURE ULCERS, V-TACH WITH A RN FIRST ASSISTANT AND PERIPHERAL VASCULAR DISEASE. </paragraph><paragraph>PATIENT LIVES WITH SPOUSE AND DAUGHTER (WHO IS UP) IN [place] L[place]EL HOME WITH 12 TOTAL STEPS FROM GARAGE. PATIENT UNABLE TO GET UP AND DOWN STEPS NOW AND THEY ARE THINKING ABOUT A CHAIR LIFT. PATIENT UNABLE TO FULLY PARTICIPATE THIS DATE S/T INCREASED PAIN THIS DATE WITH MOVEMENT. PAIN AT 3 AT REST, BUT WOULD INCREASE SIGNIFICANTLY WITH MOVEMENT. PATIENT AND CG PROVIDED REPORTS ON PERFORMANCE. PATIENT ALSO HAS PAID CAREGIVER FROM [facility] SYSTEM TVTY. UB DRESSING AT SET-UP WITH LOWER BODY AT MOD/MAX A, BUT DOES HAVE LH DEVICES THAT CAN BE USED. PATIENT HAS NOT ATTEMPT BATHING YET, BUT DOES HAVE GRAB BAR AND TUB BENCH WITH DSH. EDUCATION ON BENEFIT OF ADDITIONAL GRAB BAR TO PULL SELF TO STAND TO WASH POSTERIOR. TOILET RAILS AT TOILET WITH MIN/MOD A TO TRANSFER AND CM WITH MAX A FOR HYGIENE WITH EDUCATION ON BENEFIT OF BIDET. PATIENT DOES HAVE BED RAIL ON BED BUT HAS DIFFICULTY GETTING IN AND OUT OF BED. </paragraph><paragraph>AROM WFL WITH MMT AT 4-/5 FOR BUE WITH HEP INITIATED WITH EDUCATION TO LIMIT WEIGHTS FOR NOW IF HAVING INCREASED PAIN. UNDERSTANDING COMMUNIATED. ABBI SCORE AT 50 INDICATING MOD FUNCTIONAL IMPAIRMENTS.</paragraph><paragraph>PATIENT TO BENEFIT FROM SKILLED OT SERVICES TO ADDRESS STRENGTH, TOLERANCE, BALANCE, PAIN MANAGEMENT, CG EDUCATION, CORRECT USE OF AE/ COMP STRATEGIES TO SAFELY AND EFFECTIVE IMPROVE INDEPENDENCE. PATIENT CONSIDERED HOMEBOUND S/T PAIN, DIFFICULTY WITH WALKING REQUIRING USE OF W/C AND INCREASED FALL RISK S/T ONLY TO LEAVE HOME IS TO NEGOTIATE 12 STEPS REQUIRING INCREASED HUMAN ASSISTANCE. PATIENT AGREEABLE TO ADDITIONAL OT VISITS.PROVIDED CARE: OT DIRK COMPLETED THIS DATE WITH MEASUREMENTS AND ANALYSIS COMPLETED NEEDED. THERAPIST USED TASK/ PERFORMANCE ANALYSIS, PATIENT/ CG REPORT AND CLINICAL JUDGEMENT THIS DATE S/T INCREASED BACK PAIN WITH MOVEMENT. EDUCATION TO SPOUSE AND PATIENT ON AE THAT WOULD BE BENEFICIAL THAT INCLUDED GRAB BAR, BIDET, TRAPEZE BAR. UNDERSTANDING COMMUNICATED. PATIENT AGREEABLE TO ADDITIONAL OT VISITS.</paragraph> <paragraph>[Visit Date: 2024 by JOSE TERAN RN]:</paragraph><paragraph>UPON ARRIVAL TO PATIENTS HOME PATIENT'S OPENED DOOR FOR THIS NURSE. PATIENT SITTING IN WHEELCHAIR AT KITCHEN TABLE WITH CAREGIVER. LABS OBTAINED VIA PICC LINE AND TAKEN TO [facility] IN [place]. WOUND CARE PROVIDED TO [facility] WITH NO PROBLEMS IDENTIFIED. NO MEDCHANGES NOTED. EDUCATION PROVIDED ON PAIN MANAGEMENT AND SIGNS AND SYMPTOMS OF INFECTION. PATIENT AND EDUCATED ELEVATORS INSPECTOR US FIRST UNLESS AN EMERGENCY THEN CALL 911, PATIENT AND CAREGIVER VERBALIZE UNDERSTANDING OF EDUCATION PROVIDED THIS VISIT</paragraph> Encounters Start Date/Time End Date/Time Encounter Type Admission Type Attending [facility] Facility Care Department Encounter ID Discharge Date Discharge Status Discharge Condition Discharge Reason Percent Goals Met 2025-04-17 00:00:00 2025-06-15 00:00:00 Outpatient NEW ADMISSION [facility] [id number] [id number]
== END 2025-04-22 10:54 | disposition short-term general hospital (02) ==
PROVIDERS: Emergency Provider Emergency Medicine; PCP Family Medicine
DX: M46.46 Discitis, unspecified, lumbar region (principal); M46.26 Osteomyelitis of vertebra, lumbar region; M84.48XA Pathological fracture, other site, initial encounter for fracture; L89.151 Pressure ulcer of sacral region, stage 1; Z20.822 Contact with and (suspected) exposure to COVID-19; I73.9 Peripheral vascular disease, unspecified; I10 Essential (primary) hypertension; E78.00 Pure hypercholesterolemia, unspecified; Z86.711 Personal history of pulmonary embolism; Z86.0101 Personal history of adenomatous and serrated colon polyps; Z90.49 Acquired absence of other specified parts of digestive tract; Z79.82 Long term (current) use of aspirin; Z79.01 Long term (current) use of anticoagulants; Z79.899 Other long term (current) drug therapy; K43.9 Ventral hernia without obstruction or gangrene; W18.39XA Other fall on same level, initial encounter
CPT/HCPCS: 36415; 71045; 72131; 74176; 80053; 81001; 83605; 83735; 84145; 84484; 85025; 85652; 86140; 87040; 87086; 87147; 87186; 87637; 93005; 96365; 96366; 96367; 96375; 96376; 99285; J0692; J1171; J2270; J2405; J3373; J3475